=== PATIENT | male | born 1940 | race Caucasian/White ===

== ENCOUNTER → 2022-06-29 08:37 | Outpatient (BNVA) | payer MEDICARE, OTHER, SELFPAY | PROVIDERS: PCP Family Medicine; Referring Provider Family Medicine; Visit Provider Urology | DX: N42.9 Disorder of prostate, unspecified (principal); R97.20 Elevated prostate specific antigen [PSA]; R39.89 Other symptoms and signs involving the genitourinary system | CPT/HCPCS: 99204 ==

== ENCOUNTER → 2022-07-06 13:33 | Outpatient (BNVA) | payer MEDICARE, OTHER, SELFPAY | PROVIDERS: PCP Family Medicine; Referring Provider Family Medicine; Visit Provider Urology | DX: C61 Malignant neoplasm of prostate (principal) | CPT/HCPCS: 55700; 76942; 76872 ==

== ENCOUNTER 2022-07-06 14:23 | Outpatient (REF) | payer MEDICARE, OTHER, SELFPAY ==
--- NOTE | 2022-07-06 14:20 | PROST_PTH ---
PATIENT: Benny Zurita LOC: [facility] U#:[id number] AGE/SX: 82/M ROOM: RE07/06/[address]: Jesus Cuellar MD : 1940 BED: DIS: 07/06/2022 SPEC #: [id number] RECD: 07/06/22 16:20 STATUS: RASHI RE #: [id number] EVONNE: 07/06/22 14:[address]: Jesus Cuellar DEPT: Surgical Specimen RECD BY: Gemma Cunningham ENTERED: 07/06/22 16:22 SP TYPE: PROST OTHR DR: Jez Vance Tissues: 1 - PROSTATE NEEDLE BIOPSY 2 - PROSTATE NEEDLE BIOPSY 3 - PROSTATE NEEDLE BIOPSY 4 - PROSTATE NEEDLE BIOPSY 5 - PROSTATE NEEDLE BIOPSY 6 - PROSTATE NEEDLE BIOPSY 7 - PROSTATE NEEDLE BIOPSY 8 - PROSTATE NEEDLE BIOPSY 9 - PROSTATE NEEDLE BIOPSY 10 - PROSTATE NEEDLE BIOPSY 11 - PROSTATE NEEDLE BIOPSY 12 - PROSTATE NEEDLE BIOPSY Procedures: GROSS AND MICRO LEVEL 4 Comments: [id number]
== END 2022-07-06 14:24 | disposition home or self-care (01) ==
LOC: LBN 14:23
PROVIDERS: PCP Family Medicine; Visit Provider Urology
DX: C61 Malignant neoplasm of prostate (principal)
CPT/HCPCS: 88305

== ENCOUNTER → 2022-07-21 10:48 | Outpatient (BNVA) | payer MEDICARE, OTHER, SELFPAY | PROVIDERS: PCP Family Medicine; Referring Provider Family Medicine; Visit Provider Urology | DX: C61 Malignant neoplasm of prostate (principal) | CPT/HCPCS: 99215 ==

== ENCOUNTER 2022-08-04 01:44 | Outpatient (CLI) | payer MEDICARE, OTHER, SELFPAY ==
--- NOTE | 2022-08-04 08:00 | DI.NM_ITS ---
Exam(s) NM BONE SCAN WHOLE BODY GRP EXAM: NM BONE SCAN WHOLE BODY GRP CLINICAL HISTORY: r/o mets, PROSTATE CA, C61. TECHNIQUE: Injected Dose: 25 mCi Tc-99m MDP Delayed Images: 2-3 hours. COMPARISON: No exams were available for comparison FINDINGS: Symmetric axial uptake. Bilateral renal excretion is identified. There is increased radiotracer uptak e seen in the shoulders, knees and right foot. The appearance is most suggestive of degenerative sheeba nge. There are no x-rays available at this time for comparison. There is increased uptake seen in t he midline above the clavicles on the frontal view. IMPRESSION: 1. Increased radiotracer uptake seen in the midline above the clavicles on the frontal view. This ma y be cervical or upper thoracic in origin. Comparison with x-rays of the cervical and thoracic spine are recommended. 2. Activity seen in the shoulders knees and right foot are likely degenerative in nature. Correlatio n with plain films may be obtained if clinically appropriate.. DATA REPOSITORY:
== END 2022-08-04 02:04 ==
LOC: DI 01:44
PROVIDERS: PCP Family Medicine; Visit Provider Urology
DX: C61 Malignant neoplasm of prostate (principal); M81.0 Age-related osteoporosis without current pathological fracture
CPT/HCPCS: 78306

== ENCOUNTER → 2022-08-07 12:53 | Outpatient (BNVA) | payer MEDICARE, OTHER, SELFPAY | PROVIDERS: PCP Family Medicine; Referring Provider Family Medicine; Visit Provider Urology | DX: C61 Malignant neoplasm of prostate (principal) | CPT/HCPCS: 99442 ==

== ENCOUNTER 2023-12-03 01:01 | Outpatient (RCR) | payer MEDICARE, OTHER, SELFPAY ==
--- OUTSIDE RECORDS SUMMARY | 2023-12-03 01:10 | XMS_ITS | Encounter Summary ---
Author Organization [facility] Address [address] [place] [address] Care Team Providers Care Badger Distiller Operator Name Role Phone Devorah Flowers MD Primary Care Provider [phone] [phone] Encounter Details Date Type Department Care Team (Late st Contact Info) Description 08/14/2009 Results Only [facility] Laboratory Services - [facility] ([facility]) [address] [place] [address] [phone] Jair Thomas MD [address] [place] [address] Social History Tobacco Use Types Packs/Day [...] COLIN, KIA L ? Accession #: ? [id number] ? : ? 1940 (Age: 69) ??M [...] EDT Jair Thomas MD PATHOLOGY ORDERABLES [place] [address] [place] [address] documented in this encounter Visit Diagnoses Not on filedocumented in this encounter Care Teams Badger Distiller Operator Relationship Specialty Start Date End Date Devorah Flowers MD [address] [place] [phone] PCP - General 08/15/09 08/19/14 documented as of this encounter
--- OUTSIDE RECORDS SUMMARY | 2023-12-03 01:10 | XMS_ITS | Encounter Summary ---
Author Organization [facility] Address [address] [place] [address] Care Team Providers Care Encephalographer Name Role Phone Jez Vance MD Primary Care Provider [phone] Encounter Details Date Type Department Care Team (Late st Contact Info) Description 07/06/2022 Lab Requisition [facility] Pathology & Laboratory Medicine - [address] [id number] Jesus Cuellar MD [address] [place] [address] [place] [id number] Encounter for other general examination Social History [...] management options, if applicable. 07/09/2022 13:43 EDT [facility] Final Diagnosis A. PROSTATE, RIGHT BASE LATERAL, BIOPSY (1): - Prostatic adenocarcinoma, acinar type, involving 1 of 1 core; 0.5% involvement. - Core 1 (18.4 mm): [place] patterns 4 and 3, 0.1 mm B. [...] 1 (Leslie score <=6) Grade Group 2 ([place] score 3+4=7) Grade Group 3 (Leslie score 4+3=7) Grade Group 4 (Leslie score 8) Grade Group 5 ([place] scores 9-10) * Taya SARABIA et al: A Contemporary Prostate Cancer Grading System: A Validated Alternative to the Leslie Score. Eur Uro 2015 69(3):428-435 07/09/2022 13:43 [facility] Attestation By the signature below, the attending physician certifies that they have 1) personally conducted a gross and/or microscopic examination of the described specimen(s), and/or personally interpreted the results of laboratory testing of the described specimen(s), and 2) personally rendered or confirmed the above diagnosis. 07/09/2022 13:43 [facility] at 1343 Clinical History Abnormal prostate MRI, elevated PSA 07/09/2022 13:43 [facility] Gross Description A. Received [...] L1. ISMAEL SERRATO(ASCP) 07/07/2022 9:01 07/09/2022 13:43 [facility] Performing Lab [facility] 07/09/2022 13:43 [facility] Scanned Images 07/09/2022 13:43 [facility] Tissue ENTIRE APEX OF [...] EDT Jesus Cuellar MD PATHOLOGY ORDERAB LES [facility] [address] [place] [address] documented in this encounter Visit Diagnoses Diagnosis Encounter for other general examination documented in this encounter Care Teams Encephalographer Relationship Specialty Start Date End Date Jez Vance MD NPI: [id number] [place] [id number] PCP - General 08/20/14 documented as of this encounter
--- OUTSIDE RECORDS SUMMARY | 2023-12-03 01:10 | XMS_ITS | Clinical Summary ---
Author Organization [facility] Address [address] [place] [id number] Care Team Providers Care Entry Level Receptionist Name Role Phone Jez Vance MD Primary Care Provider [phone] Social History Tobacco Use Types Packs/Day Years [...] COVID-19 Vaccine ( season) 2023 Care Teams Entry Level Receptionist Relationship Specialty Start Date End Date Jez Vance MD [address] [place] [id number] PCP - General 08/20/14
--- OUTSIDE RECORDS SUMMARY | 2023-12-03 01:10 | XMS_ITS | Patient Health Record ---
Author Organization [facility] Address [address], [place] [id number] Care Team Providers Care Room Maid Name Role Phone Jez Vance MD Primary Care Provider [phone] Allergies Allergen (clinical drug ingredient) Drug/Non Drug Allergy documented on EMR Reaction Allergy Type Onset Date Status Environmental Unknown Drug Allergy Act heaven Results Component Value Reference Range Notes CMP Reviewed date:11/23/2023 10:09:21 AM Interpretation: Performing Lab:NL1, [facility] [id number] [place], [place] [id number] Jocelyn Muniz M.D. Notes/Report: Received Date: NON-FASTING NON-FASTING NON-FASTING NON-FASTING NON-FASTING GLUCOSE 198 65-99 mg/dL Fasting reference interval For someone without known diabetes, a glucose value >125 mg/dL indicates that they may have diabetes and this should be confirmed with a follow-up test. UREA NITROGEN (BUN) 12 7-25 mg/dL CREATININE 0.58 0.70-1.22 mg/dL EGFR 98 > OR = 60 mL/min/1.73m2 BUN/CREATININE RATIO 21 6-22 (calc) SODIUM 138 135-146 mmol/L POTASSIUM 3.7 3.5-5.3 mmol/L CHLORIDE 104 98-110 mmol/L CARBON DIOXIDE 25 20-32 mmol/L CALCIUM 8.7 8.6-10.3 mg/dL PROTEIN, TOTAL 5.7 6.1-8.1 g/dL ALBUMIN 3.7 3.6-5.1 g/dL GLOBULIN 2.0 1.9-3.7 g/dL (calc) ALBUMIN/GLOBULIN RATIO 1.9 1.0-2.5 (calc) BILIRUBIN, TOTAL 0.9 0.2-1.2 mg/dL ALKALINE PHOSPHATASE 99 35-144 U/L AST 16 10-35 U/L ALT 24 9-46 U/L PSA, POST-PROSTATECTOMY Reviewed date:11/23/2023 10:09:35 AM Interpretation: Performing Lab:[facility] [address] Jocelyn Muniz M.D. Notes/Report: Received Date: NON-FASTING NON-FASTING NON-FASTING NON-FASTING NON-FASTING PSA, POST PROSTATECTOMY <0.02 PSA values obtained with different assay methods or kits cannot be used interchangeably. This test was performed using the [employer] DxI method. PSA, ICMA is not to be used as a diagnostic procedure without confirmation of the diagnosis by another established product or procedure. The lower limit of accurate quantification for this assay is 0.02 ng/mL. PSA values less than 0.02 ng/mL cannot be accurately measured and will be reported as less than 0.02 ng/mL. Specimens with PSA levels below the lower limit of accurate quantification should be considered as negative. In patients with a negative result for post prostatectomy PSA, serial monitoring of PSA levels at regular intervals, along with physical examinations and other tests, may help to detect recurrent prostate cancer. REFERENCE RANGES for PSA: <0.10 ng/mL AFTER RADICAL PROSTATECTOMY. < OR = 4.00 ng/mL IN HEALTHY MALES WITHOUT PROSTATECTOMY. CA 19-9 Reviewed date:11/23/2023 10:09:41 AM Interpretation: Performing Lab:[facility] [address] Jocelyn Muniz M.D. Notes/Report: Received Date: [id number] NON-FASTING NON-FASTING NON-FASTING NON-FASTING NON-FASTING CA 19-9 181 <34 U/mL This test was performed using the Siemens chemiluminescent method. Values obtained from different assay methods cannot be used interchangeably. CA 19-9 levels, regardless of value, should not be interpreted as absolute evidence of the presence or absence of disease. CBC WITH DIFF Reviewed date:11/23/2023 10:09:54 AM Interpretation: Performing Lab:[facility] [address] Jocelyn Muniz M.D. Notes/Report: Received Date: NON-FASTING NON-FASTING NON-FASTING NON-FASTING NON-FASTING WHITE BLOOD CELL COUNT 5.0 3.8-10.8 Thousand/uL RED BLOOD CELL COUNT 3.90 4.20-5.80 Million/uL HEMOGLOBIN 12.9 13.2-17.1 g/dL HEMATOCRIT 39.4 38.5-50.0 % MCV 101.0 80.0-100.0 fL MCH 33.1 27.0-33.0 pg MCHC 32.7 32.0-36.0 g/dL For adults, a slight decrease in the calculated MCHC value (in the range of 30 to 32 g/dL) is most likely not clinically significant; however, it should be interpreted with caution in correlation with other red cell parameters and the patient's clinical condition. RDW 13.2 11.0-15.0 % PLATELET COUNT 197 140-400 Thousand/uL MPV 11.4 7.5-12.5 fL ABSOLUTE NEUTROPHILS 3595 7599-2915 cells/uL ABSOLUTE LYMPHOCYTES 379 242-5816 cells/uL ABSOLUTE MONOCYTES 250 200-950 cells/uL ABSOLUTE EOSINOPHILS 270 15-500 cells/uL ABSOLUTE BASOPHILS 30 0-200 cells/uL NEUTROPHILS 71.9 LYMPHOCYTES 17.1 MONOCYTES 5.0 EOSINOPHILS 5.4 BASOPHILS 0.6 TESTOSTERONE TOTAL SERUM Reviewed date:11/23/2023 10:09:28 AM Interpretation: Performing Lab:NL1, [facility] [address] Jocelyn Muniz M.D. Notes/Report: Received Date: NON-FASTING NON-FASTING NON-FASTING NON-FASTING NON-FASTING TESTOSTERONE, TOTAL, MALES (ADULT), IA <10 250-827 ng/dL In hypogonadal males, Testosterone, Total, LC/MS/MS, is the recommended assay due to the diminished accuracy of immunoassay at levels below 250 ng/dL. This test code (42133) must be collected in a red-top tube with no gel. HGA1C FINGERSTICK Reviewed date:09/17/2023 10:05:13 AM Interpretation:5.4 Performing Lab: Notes/Report: 5.4 HGA1C 5.4 4 - 7 US Abdomen Limited Reviewed date:11/03/2023 01:54:28 AM Interpretation: Performing Lab: Notes/Report: EXAMINATION: US Abdomen Limited CLINICAL HISTORY: Abdominal discomfort TECHNIQUE: Ultrasound of the abdomen was performed. COMPARISON: None FINDINGS: Liver is not enlarged at 15.3 cm craniocaudally and demonstrates diffusely increased echogenicity without mass. Portal vein is patent with hepatopetal [...] is unremarkable without hydronephrosis and measures 12.8cm. IMPRESSION: 1. Liver steatosis. 2. Biliary ductal dilatation [...] who have questions please contact the health pharmacy customer care specialist that requested your imaging first. Electronically signed by: Milton Klein MD, [facility] ([phone]), at 10/21/2023 11:12 AM US Abdomen Limited EXAMINATION: US Abdo men Limited US Abdomen Limited CLINICAL HISTORY: Abdominal discomfort US Abdomen Limited TECHNIQUE: Ultrasoun d of the abdomen was performed. US Abdomen Limited COMPARISON: None US Abdomen Limited FINDINGS: Liver is n ot enlarged at 15.3 cm craniocaudally and demonstrates US Abdomen Limited diffusely increased echogenicity without mass. Portal vein is patent with US Abdomen Limited hepatopetal flow. Gallbladder is diffusely dilated, measures 5.3 cm in diameter US Abdomen Limited and 11 cm in length. No pericholecystic fluid, gallbladder wall thickening or US Abdomen Limited stones. sonographic Kim's sign. Common bile duct measures 13mm, tapers down US Abdomen Limited to 8 mm at the level of the pancreatic head. An oblong hypoechoic focus projects US Abdomen Limited in the head of the pancreas, measures approximately 2 cm in greatest dimension US Abdomen Limited Pancreatic tail is obscured by overlying bowel gas. The right kidney is US Abdomen Limited unremarkable without hydronephrosis and measures 12.8cm. US Abdomen Limited IMPRESSION: US Abdomen Limited 1. Liver steatosis. US Abdomen Limited 2. Biliary ductal dilatation and a hydropic gallbladder. Please correlate with US Abdomen Limited LFTs. US Abdomen Limited 3. An oblong hypoech oic focus within the head of the pancreas, concerning for a US Abdomen Limited mass lesion. US Abdomen Limited 4. Recommend further characterization of the above described abnormalities with US Abdomen Limited MRI of the abdomen w ith and without contrast according to the pancreatic mass US Abdomen Limited protocol, and an MRCP. US Abdomen Limited Thank you for lettemy oneil participate in the care of this patient. If you are a US Abdomen Limited health care provider and have any questions regarding this report, please US Abdomen Limited contact the number below. For patients who have questions please contact the US Abdomen Limited health pharmacy customer care specialist that requested your imaging first. US Abdomen Limited Electronically paul d by: Milton Klein MD, [facility] ([phone]), at 10/21/2023 11:12 AM Amylase Reviewed date:11/03/2023 01:54:28 AM Interpretation: Performing Lab: Notes/Report: [id number] [address] [address] [place], [place] [id number] [facility] [id number] SELF Amylase Level 45 28-100 unit/L Bili Dir Reviewed date:11/03/2023 01:54:28 AM Interpretation: Performing Lab: Notes/Report: Order placed by GL_COTT_RFLX_BILI rule [id number] [address] [address] [place], [place] [id number] [facility] [id number] SELF Bilirubin Direct 5.0 0.0-0.3 mg/dL Lipase Reviewed date:11/03/2023 01:54:28 AM Interpretation: Performing Lab: Notes/Report: [id number] [address] [address] [place] [id number] [facility] [id number] SELF Lipase Level 75 13-60 unit/L Auto Diff Reviewed date:11/03/2023 01:54:28 AM Interpretation: Performing Lab: Notes/Report: [id number] [facility] [address] [place] [id number] [facility] [id number] SELF Neutro Auto 66.1 40.0-74.0 /100(WBCs) Lymph Auto 19.8 19.0-48.0 /100(WBCs) Coamo Auto 10.5 3.0-10.0 /100(WBCs) Eos, Auto 3.2 1.0-7.0 /100(WBCs) Basophil Auto 0.20 0.00-2.00 /100(WBCs) Neutro Absolute 3.13 1.20-6.70 x10 Lymph Absolute 0.94 1.20-3.40 x10 Coamo Absolute 0.50 0.11-0.70 x10 Eos Absolute 0.15 0.00-0.70 x10 Baso Absolute 0.01 0.00-0.20 x10 Breakpoint Imm Gran Auto 0.2 Imm Gran Absolute 0.01 0.00-0.04 x10 CBC w/ Diff Reviewed date:11/03/2023 01:54:28 AM Interpretation: Performing Lab: Notes/Report: [id number] [facility] [address] [place] [id number] [id number] [facility] [id number] SELF Instr WBC 4.74 WBC 4.74 4.80-10.80 x10 RBC 4.21 4.20-5.90 x10 Hgb 13.7 13.5-17.5 g/dL Hct 38.8 40.0-50.0 % MCH 32.5 27.5-32.1 pg MCHC 35.3 33.0-36.0 g/dL MPV 10.6 6.0-10.0 fL MCV 92.2 80.0-97.0 fL Platelets 223 150-400 x10 Breakpoint RDW-CV 12.8 11.6-14.8 % CMP Reviewed date:11/03/2023 01:54:28 AM Interpretation: Performing Lab: Notes/Report: [id number] [address] [address] [place] [id number] [id number] [facility] [place] [phone] SELF Sodium Level 134 136-145 mmol/L Potassium Level 2.9 3.5-5.0 mmol/L Critical v alue verified and results called to Maritza Mora and read back at 1646_ by tech: gar_ Chloride Level 94 98-107 mmol/L CO2 28 22-29 mmol/L Alk Phos 364 40-129 unit/L AST 276 10-50 unit/L ALT 670 5-55 unit/L BUN 18.7 8.0-23.0 mg/dL Glucose Level 223 70-100 mg/dL Creatinine Level 0.89 0.70-1.20 mg/dL Specimen icteric; result may be invalid. Interpret with caution. Calcium Level 9.6 8.8-10.2 mg/dL Protein Total 6.5 6.1-8.0 g/dL Albumin Level 4.2 3.5-5.2 g/dL Bilirubin Total 6.07 <=1.20 mg/dL Anion Gap 15 5-15 mmol/L Breakpoint eGFR AA 100 >=60 mL/min/1.73 m2 eGFR Non-AA 82 >=60 mL/min/1.73 m2 BUN/Creat Ratio 21 A/G Ratio 1.8 CMP Reviewed date:11/03/2023 01:54:29 AM Interpretation: Performing Lab:NL1, [facility] [address] Jocelyn Muniz M.D. Notes/Report: Received Date: NON-FASTING NON-FASTING GLUCOSE 177 65-99 mg/dL Fasting reference interval For someone without known diabetes, a glucose value >125 mg/dL indicates that they may have diabetes and this should be confirmed with a follow-up test. UREA NITROGEN (BUN) 22 7-25 mg/dL CREATININE 0.85 0.70-1.22 mg/dL EGFR 87 > OR = 60 mL/min/1.73m2 BUN/CREATININE RATIO SEE NOTE: 6-22 (calc) Not Reported: BUN and Creatinine are within reference range. SODIUM 135 135-146 mmol/L POTASSIUM 3.3 3.5-5.3 mmol/L CHLORIDE 94 98-110 mmol/L CARBON DIOXIDE 30 20-32 mmol/L CALCIUM 9.9 8.6-10.3 mg/dL PROTEIN, TOTAL 6.6 6.1-8.1 g/dL ALBUMIN 4.0 3.6-5.1 g/dL GLOBULIN 2.6 1.9-3.7 g/dL (calc) ALBUMIN/GLOBULIN RATIO 1.5 1.0-2.5 (calc) BILIRUBIN, TOTAL 3.4 0.2-1.2 mg/dL ALKALINE PHOSPHATASE 301 35-144 U/L AST 270 10-35 U/L ALT 585 9-46 U/L Verified by rep eat analysis. CBC WITH DIFF Reviewed date:11/03/2023 01:54:29 AM Interpretation: Performing Lab:NL1, [facility] [id number] [place], [place] [id number] Jocelyn Muniz M.D. Notes/Report: Received Date: [id number] NON-FASTING NON-FASTING WHITE BLOOD CELL COUNT 4.7 3.8-10.8 Thousand/uL RED BLOOD CELL COUNT 4.18 4.20-5.80 Million/uL HEMOGLOBIN 13.7 13.2-17.1 g/dL HEMATOCRIT 42.2 38.5-50.0 % MCV 101.0 80.0-100.0 fL MCH 32.8 27.0-33.0 pg MCHC 32.5 32.0-36.0 g/dL RDW 12.3 11.0-15.0 % PLATELET COUNT 263 140-400 Thousand/uL MPV 11.3 7.5-12.5 fL ABSOLUTE NEUTROPHILS 3149 0353-7884 cells/uL ABSOLUTE LYMPHOCYTES 066 757-2722 cells/uL ABSOLUTE MONOCYTES 437 200-950 cells/uL ABSOLUTE EOSINOPHILS 179 15-500 cells/uL ABSOLUTE BASOPHILS 28 0-200 cells/uL NEUTROPHILS 67 LYMPHOCYTES 19.3 MONOCYTES 9.3 EOSINOPHILS 3.8 BASOPHILS 0.6 ELECTROCARDIOGRAM EKG Reviewed date:10/20/2023 02:20:52 PM Interpretation: Performing Lab: Notes/Report: Ultrasound Abdominal Limited Reviewed date:10/20/2023 02:22:04 PM Interpretation: Performing Lab: Notes/Report: CA 19-9 [facility] Reviewed date:11/03/2023 01:54:28 AM Interpretation: Performing Lab: Notes/Report: [id number] [address] [address] [place], [place] [id number] [facility] [place] [id number] SELF CA 19-9 [facility] 79.0 <=35.0 This result was generated using a Doreen Danis immunoassay. Results obtained from other methods or manufacturers cannot be used interchangeably with this method. Test performed at: [place] [address] LIPID PANEL Reviewed date:09/15/2023 02:03:07 PM Interpretation: Performing Lab:NL1, [facility] [place], [place] [phone] Jocelyn Muniz M.D. Notes/Report: Received Date: [id number] NON-FASTING NON-FASTING NON-FASTING CHOLESTEROL, TOTAL 140 <200 mg/dL HDL CHOLESTEROL 44 > OR = 40 mg/dL TRIGLYCERIDES 109 <150 mg/dL LDL-CHOLESTEROL 77 Reference range: <100 Desirable range <100 mg/dL for primary prevention; <70 mg/dL for patients with CHD or diabetic patients with > or = 2 CHD risk factors. LDL-C is now calculated using the Anthony-Shyanne calculation, which is a validated novel method providing better accuracy than the Friedewald equation in the estimation of LDL-C. Anthony WATSON et al. ADONAY. 2013;310(19): 6702-1943 (http://education.Root Metrics.com/faq/F AQ164) CHOL/HDLC RATIO 3.2 <5.0 (calc) NON HDL CHOLESTEROL 96 <130 mg/dL (calc) For patients with diabetes plus 1 major ASCVD risk factor, treating to a non-HDL-C goal of <100 mg/dL (LDL-C of <70 mg/dL) is considered a therapeutic option. PSA TOTAL Reviewed date:09/15/2023 02:02:54 PM Interpretation: Performing Lab:NL1, [facility] [address] Jocelyn Muniz M.D. Notes/Report: Received Date: [id number] NON-FASTING NON-FASTING NON-FASTING PSA, TOTAL <0.04 < OR = 4.00 ng/mL The total PSA value from this assay system is standardized against the WHO standard. The test result will be approximately 20% lower when compared to the equimolar-standardized total PSA (Stefania Conroe). Comparison of serial PSA results should be interpreted with this fact in mind. This test was performed using the Siemens chemiluminescent method. Values obtained from different assay methods cannot be used interchangeably. PSA levels, regardless of value, should not be interpreted as absolute evidence of the presence or absence of disease. BMP Reviewed date:09/15/2023 02:03:21 PM Interpretation: Performing Lab:NL1, [facility] [id number] [place], [place] [id number] Jocelyn Muniz M.D. Notes/Report: Received Date: NON-FASTING NON-FASTING NON-FASTING GLUCOSE 124 65-99 mg/dL Fasting reference interval For someone without known diabetes, a glucose value between 100 and 125 mg/dL is consistent with prediabetes and should be confirmed with a follow-up test. UREA NITROGEN (BUN) 15 7-25 mg/dL CREATININE 0.81 0.70-1.22 mg/dL EGFR 89 > OR = 60 mL/min/1.73m2 BUN/CREATININE RATIO SEE NOTE: 6-22 (calc) Not Reported: BUN and Creatinine are within reference range. SODIUM 133 135-146 mmol/L POTASSIUM 3.6 3.5-5.3 mmol/L CHLORIDE 97 98-110 mmol/L CARBON DIOXIDE 28 20-32 mmol/L CALCIUM 9.1 8.6-10.3 mg/dL Reason For Referral Reason Pt seen 10/21/23, no sukumar scanned to chart for provider review 11/08/23 LR -- APPT 10/21/23 LR -- FAXED TO 10/20/23 LR -- [facility] - NEEDS SURGICAL CONSULT RE GB OBSTRUCTION - LABS AND FORMAL SONO PENDING Please contact our office within 7 days to notify LR of scheduled appointment Diagnosis 1 SOB (shortness of br eath) on exertion (R06.02) Referral Organization [facility] Yoel Bailon Referring Provider First Name Jez Referring Provider Last Name Rajiv Gates Referring Provider Speciality Family Med icine Referred Provider [facility], [facility] Surgery Referred Provider Specialty General Surg matt General Notes Pallavi Campos 05/2023 04:55:13 PM >FAXED TO GEN SURG, Pallavi Campos 10/21/2023 03:42:14 PM >Per arabella Carrion had appt 10/21/23 at 2:00pm, notes pending completion and signature., Pallavi Campos 11/08/2023 10:23:44 AM >Pt seen 10/21/23, notes scanned to chart for provider review. Referral Priority Routine Referral Appointment Date 10/21/2023 Medications Medication SIG (Take, Route, Frequency, Duration) Notes Start Date End Date Status Lupron Depot (6-Month) 45 MG as directed Intramuscular every 6 months 11/27/2022 Active Ibuprofen 400 MG 1-2 tablets with alejandrina d or milk as needed Orally Once a day at bedtime 11/27/2022 Active Losartan Potassium 50 MG 1 tablet Orally Twice a day for 90 days If BP>140/90 Active Singulair 10 MG 1 tablet in the even ing Orally Once a day for 90 days Active Simvastatin 20 MG 1 tablet in the even ing Orally Once a day for 30 days Active Senna-Docusate Sodium 8.6-50 MG 2 tablets Orally Twice a day 10/27/2023 Active MiraLax 17 GM 1 packet mixed with 8 ounces of fluid Orally Once a day 10/27/2023 Active Tamsulosin HCl 0.4 MG 1 capsule Orally O nce a day at bedtime for 90 days 10/27/2023 Active Immunizations Vaccine Route Administration Date Status Comme nts TDaP Adult [facility] [id number] Unknown 09/07/2007 Administered TD 7 and Up [facility] [id number] IM Intramuscular 11/19/2017 Administered SHINGRIX [facility] [id number] Unknown 09/18/2018 Administered SHINGRIX [facility] 07859 IM Intramuscular 09/19/2018 Administered Prevnar PCV 13 Adult 65+ Purchased [id number] Unknown 10/24/2017 Administered Lot# [id number] Exp 05/2019 [facility]man Pneumovax 23 Adult 65+ Purchased [id number] Unknown 09/03/2020 Administered Influenza Adult FluBlok high dose PURCHASED IM Intramuscular 10/15/2017 Administered Influenza Adult FluBlok high dose PURCHASED IM Intramuscular 11/15/2019 Administered Influenza Adult FluBlok high dose PURCHASED IM Intramuscular 11/11/2021 Administered Influenza 3 Yrs and up [facility] 28931 Unknown 11/17/2010 Administered INFLUENZA 18 YRS TO 64 YRS [employer]LD-STATE SUPPLIED IM Intramuscular 11/19/2011 Administered INFLUENZA 18 YRS TO 64 YRS OLD-STATE SUPPLIED IM Intramuscular 11/02/2012 Administered INFLUENZA 18 YRS TO 64 YRS OLD-STATE SUPPLIED IM Intramuscular 11/22/2013 Administered INFLUENZA 18 YRS TO 64 YRS OLD-STATE SUPPLIED IM Intramuscular 11/14/2014 Administered INFLUENZA 18 YRS TO 64 YRS OLD-STATE SUPPLIED IM Intramuscular 10/30/2015 Administered INFLUENZA 18 YRS TO 64 YRS OLD-STATE SUPPLIED IM Intramuscular 11/16/2016 Administered Social History Tobacco Use: Social History Observation Description Date Details (start date - stop date) Never Smoker NA - NA Sex Assigned At : Social History Observation Description Sex Assigned At Male PRAPARE Question Answer Notes Date Completed/Updated: 09/17/2023 What is your current housing situation? I have h ousing Are you worried about losing your housing? No What is the highest level of school that you have finished? More than high school What is your current work situation? Oth erwise unemployed but not seeking work (ex. 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 Check all that apply I do not have problems meeting my needs Has lack of transportation k ept you from medical appointments, meetings, work or from getting things needed for daily living? No How often do you see or talk to people that you care about and feel close to? (For example: talking to friends on the phone, visiting friends or family, going to restoration or club meetings) More than 5 times a week How stressed are you? Stress is when someone feels tense, nervous, anxious, or can't sleep at night because their mind is troubled Quite a bit In the past year have you sp ent more than 2 nights in a row in a intermediate, shelter, [place] health [place] center, or juvenile correctional facility? No Are you a refugee? No What country are you from? [place] Do you feel physically and e motionally safe where you currently live? Yes In the past year, have you b een afraid of your partner or ex-partner? No PRAPARE Score: 3 Tobacco Control (Standard) Question Answer Notes Tobacco use: Nonsmoker Problems Problem Type SNOMED Code ICD Code Onset Dates Problem Status W/U Status Risk Notes Problem 232198367 Mixed hyperlipidemia (E78.2) Active confirmed Problem 80401823 Other chronic pa in (G89.29) Active confirmed Problem 075811330 Annual physical exam (Z00.00) Active confirmed Problem Elevated fasting lipid profile (793242366120) Elevated lipids (E78.5) Active confirmed Problem 55070251 Essential hypertension (I10) Active confirmed Problem 046725762 Prostate CA (C61) Active confirmed Problem 330742713 Gastroesophageal reflux disease without esophagitis (K21.9) Active confirmed Problem 04628206 Angelica onychomycosis (B37.2) Active confirmed Problem 4527950 Urinary hesitanc y (R39.11) Active confirmed Problem Skin sensation disturbance (16482751) Numbness and tingling of foot (R20.2) Active confirmed Problem 647705425 Benign prostatic hyperplasia with lower urinary tract symptoms (N40.1) Active confirmed Vital Signs Heart Rate 46 BPM 10/20/2023 BIGEMINY WITH R ATE ~50 Temperature 97.6 degrees Fahrenheit 10/20/2023 BIGE ANUSHKA WITH RATE ~50 Respiratory Rate 18 /min 09/17/2023 Oximetry 97 % 10/20/2023 BIGEMINY WITH R ATE ~50 Blood pressure diastolic 66 mmHg 10/20/2023 BIG EMINY WITH RATE ~50 Height 69.5 in 10/20/2023 BIGEMINY WITH R ATE ~50 Blood pressure systolic 122 mmHg 10/20/2023 BIGE ANUSHKA WITH RATE ~50 Weight 187 lbs 10/20/2023 BIGEMINY WITH R ATE ~50 BMI 27.22 kg/m2 10/20/2023 BIGEMINY WITH R ATE ~50 Encounters Encounter Location Date Provider Diagnosis [address] [address] 07/01/2023 Jez Vance MD [address] [address] 09/14/2023 Jez Vance MD Essential hypertension I10 ; Mixed hyperlipidemia E78.2 and Benign prostatic hyperplasia with lower urinary tract symptoms N40.[address] [address] 09/17/2023 Jez Vance MD Encounter for annual wellness visit (AWV) in Medicare patient Z00.00 ; Essential hypertension I10 ; Prostate CA C61 and Numbness and tingling of foot R20.[address] [address] 10/20/2023 Jez Vance MD SOB (shortness of breath) on exertion R06.02 ; Dilated gallbladder K82.8 and Abdominal discomfort R10.[address] [address] 11/16/2023 Jez Vance MD Bigeminy I49.[address] [address] 11/17/2023 Jez Vance MD Prostate CA 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 affecting estrogen receptors and estrogen levels Z79.[address] [address] 07/13/2023 Jez Vance MD Annual physical exam Z00.[address] [address] 09/13/2023 Jez Vance MD Essential hypertension I10 ; Mixed hyperlipidemia E78.2 and Benign prostatic hyperplasia with lower urinary tract symptoms N40.[address] [address] 09/17/2023 Jez Vance MD PRAPARE POSITIVE PRAP [address] [address] 10/19/2023 Jez Vance MD [address] [address] 10/21/2023 Jez Vance MD [address] [address] 10/28/2023 Jez Vance MD [address] [address] 10/28/2023 Jez Vance MD [facility] [address] [address] 11/03/2023 Jez Vance MD [address] [address] 11/12/2023 Jez Vance MD [address] [address] 11/22/2023 Jez Vance MD Assessments Encounter Date Diagnosis (ICD Code) Assessment Notes Treat ment Notes Treatment Clinical Notes 10/28/2023 Hospital Admit (ICD9-CM - HOSP) 09/13/2023 Mixed hyperlipidemia (ICD-10 - E78.2) 09/13/2023 Essential hypertension (ICD-10 - I10) 07/13/2023 Annual physical exam (ICD-10 - Z00.00) 09/14/2023 Essential hypertension (ICD-10 - I10) Left ac venipuncture done with 23 g needle. Successful first attempt. Pt tolerated it well. Lab sent to [facility] 09/17/2023 Essential hypertension (ICD-10 - I10) 09/17/2023 Encounter for annual wellness visit (AWV) in Medicare patient (ICD-10 - Z00.00) 09/17/2023 PRAPARE POSITIVE (ICD9-CM - PRAP) 11/16/2023 Bigeminy (ICD-10 - I49.8) 11/17/2023 Prostate CA (ICD-10 - C61) 10/20/2023 Dilated gallbladder (ICD-10 - K82.8) 10/20/2023 SOB (shortness of breath) on exertion (ICD-10 - R06.02) 10/20/2023 Abdominal discomfort (ICD-10 - R10.9) Venipuncture right AC with 23G butterfly needle. Pt tolerated well. Millie Duong MA 11/17/2023 intermediate (current) use of other agents affecting estrogen receptors and estrogen levels (ICD-10 - Z79.818) 09/17/2023 Prostate CA (ICD-10 - C61) 09/14/2023 Mixed hyperlipidemia (ICD-10 - E78.2) 09/13/2023 Benign prostatic hyperplasia with lower urinary tract symptoms (ICD-10 - N40.1) 09/17/2023 Numbness and tinglin g of foot (ICD-10 - R20.2) 09/14/2023 Benign prostatic hyperplasia with lower urinary tract symptoms (ICD-10 - N40.1) 09/17/[address] Jez Vance by Kenny Sy, virtual biomedical electronics technician, on 09/17/2023. I, Dr. Jez Vance, have personally reviewed and agreed with the information entered by the scribe. 11/16/[address] Jez Vance by Kenny Sy, virtual biomedical electronics technician, on 11/16/2023. I, Dr. Jez Vance, have personally reviewed and agreed with the information entered by the scribe. 11/17/2023 Other Left ac venipuncture done with 23 g needle. Successful first attempt. Pt tolerated it well. Bandaid applied Lab sent to [facility]. CARISSA Fitzpatrick Plan Of Treatment Pending Test Test Name Order Date Echocardiogram 11/16/2023 ZIO PATCH 11/16/2023 Insurance Providers Payer Name Payer Address Payer Phone Subscriber Number Group Number Insured Name Patient Relationship to Insured Coverage Start Date Coverage End Date MEDICARE FQHC [address] [place] [address] [id number] Kia Shaw Self - patient is the insured [facility] [address] [place] [address] [id number] Kia Shaw Self - patient is the insured Medical (General) History Medical History History ICD Code Hypertension - GOOD CONTROL ON MEDS Elevated lipids - EXCELLENT LDL < 100 ON STATIN R 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
--- OUTSIDE RECORDS SUMMARY | 2023-12-03 01:10 | XMS_ITS ---
Author Organization [facility] Address [address] [place] [id number] Care Team Providers Care Apprentice Name Role Phone Rajiv MERCEDES, Jez Primary Care Provider [phone] Results Component Value Reference Range Notes CMP Reviewed date:11/23/2023 10:09:21 AM Interpretation: Performing Lab:[facility], [facility] [id number] [place], [place] [id number] Jocelyn Muniz M.D. Notes/Report: Received Date: NON-FASTING [...] POST-PROSTATECTOMY Reviewed date:11/23/2023 10:09:35 AM Interpretation: Performing Lab:[facility] [address] Jocelyn Muniz M.D. Notes/Report: Received Date: NON-FASTING NON-FASTING NON-FASTING NON-FASTING NON-FASTING PSA, POST PROSTATECTOMY <0.02 PSA values obtained with different assay methods or kits cannot be used interchangeably. This test was performed using the Symphony Concierge DxI method. PSA, ICMA is not to [...] 19-9 Reviewed date:11/23/2023 10:09:41 AM Interpretation: Performing Lab:[facility] [address] Jocelyn Muniz M.D. Notes/Report: Received Date: [id number] NON-FASTING NON-FASTING NON-FASTING NON-FASTING NON-FASTING CA 19-9 181 <34 U/mL This test was performed using the Siemens chemiluminescent method. Values obtained from different assay methods cannot be used interchangeably. CA 19-9 levels, regardless of value, should not be interpreted as absolute evidence of the presence or absence of disease. CBC WITH DIFF Reviewed date:11/23/2023 10:09:54 AM Interpretation: Performing Lab:[facility] [address] Jocelyn Muniz M.D. Notes/Report: Received Date: NON-FASTING NON-FASTING NON-FASTING NON-FASTING NON-FASTING WHITE BLOOD CELL COUNT 5.0 3.8-10.8 Thousand/ uL RED BLOOD CELL COUNT 3.90 4.20-5.80 Million/uL [...] MPV 11.4 7.5-12.5 fL ABSOLUTE NEUTROPHILS 3595 1800-4743 cells/uL ABSOLUTE LYMPHOCYTES 701 463-2424 cells/uL ABSOLUTE MONOCYTES 250 200-950 cells/uL ABSOLUTE EOSINOPHILS 270 15-500 cells/uL ABSOLUTE BASOPHILS 30 0-200 cells/uL NEUTROPHILS 71.9 LYMPHOCYTES 17.1 MONOCYTES 5.0 EOSINOPHILS 5.4 BASOPHILS 0.6 TESTOSTERONE TOTAL SERUM Reviewed date:11/23/2023 10:09:28 AM Interpretation: Performing Lab:[facility], [facility] [address] Jocelyn Muniz M.D. Notes/Report: Received Date: NON-FASTING NON-FASTING NON-FASTING NON-FASTING NON-FASTING TESTOSTERONE, TOTAL, MALES (ADULT), IA <10 250-827 ng/dL In hypogonadal males, Testosterone, Total, LC/MS/MS, is the recommended assay due to the diminished accuracy of immunoassay at levels below 250 ng/dL. This test code (93230) must be collected in a red-top tube with no gel. REASON FOR VISIT Labs for Oncology- CBC, CMP, Total Testosterone, PSA Ultra Sensitive, CA 19 Social History Sex Assigned At : Social History Observation Description Sex Assigned At Male Encounters Encounter Location Date Provider Diagnosis [address] [phone] 11/17/2023 Jez Vance MD Prostate CA C61 and prison (current) use of other agents affecting estrogen receptors and estrogen levels Z79.818 Assessments Encounter Date Diagnosis (ICD Code) Assessment Notes Treatment Notes Treatment Clinical Notes 11/17/2023 Prostate CA (ICD-10 - C61) 11/17/2023 prison (current) use of other agents affecting estrogen receptors and estrogen levels (ICD-10 - Z79.818) 11/17/2023 Other Left ac venipun cture done with 23 g needle. Successful first attempt. Pt tolerated it well. Bandaid applied Lab sent to [facility]. CARISSA Fitzpatrick Plan Of Treatment Treatment Notes Assessment Notes Other Left ac venipuncture done with 23 g needle. Successful first attempt. Pt tolerated it well. Bandaid applied Lab sent to [facility]. CARISSA Fitzpatrick Progress Notes * [place] SHAWOB:1940 (83 yo M)Acc No.[id number]:11/17/2023 Progress Note Patient:?Benny SHAW Provider:?Jez Vance M.D. :1940???Age:83 Y???Sex:Male Omari e:11/17/2023 Address:[address], [id number] Subjective: * Chief Complaints: * ???1. Labs for Oncology- CBC , CMP, Total Testosterone, PSA Ultra Sensitive, CA 19. * Medical History:? Objective: * Vitals:? Assessment: * Assessment: 1.?Prostate CA - C61 (Primar y)???2.?prison (current) use of other agents affecting estrogen receptors and estrogen levels - Z79.818??? 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 Notes: Left ac venipuncture done with 23 g needle. Successful first attempt. Pt tolerated it well. Bandaid applied Lab sent to [facility]. CARISSA Fitzpatrick?? * * Sign off status: Completed true * Provider:?Jez Vance M.D. Omari e:?11/17/2023 Generated for Jovanna dejesus/Allyson/Rosioitting on:?12/03/2023 01:10 AM EDT
--- OUTSIDE RECORDS SUMMARY | 2023-12-03 01:10 | XMS_ITS | Encounter Summary ---
Author Organization [facility] Address [address] [place] [address] Care Team Providers Care Child Welfare Counselor Name Role Phone Devorah Flowers MD Primary Care Provider [phone] Encounter Details Date Type Department Care Team (Late st Contact Info) Description 08/15/2014 Results Only [facility] [phone] Jair Thomas MD [address] [place] [address] Social History Tobacco Use Types Packs/Day [...] ? KIA SHAW ? Accession #: ? [id number] ? : ? 1940 (Age: 74) ??M [...] Guillen 08/16/2014 10:38 AM End of Report [facility] 08/15/2014 9:09 EDT 08/16/2014 9:09 EDT Jair Thomas MD PATHOLOGY ORDERABLES [facility] [address] [place] [address] documented in this encounter Visit Diagnoses Not on filedocumented in this encounter Care Teams Child Welfare Counselor Relationship Specialty Start Date End Date Devorah Flowers MD [address] [place] [phone] PCP - General 08/15/09 08/19/14 documented as of this encounter
--- OUTSIDE RECORDS SUMMARY | 2023-12-03 01:10 | XMS_ITS | Referral Summary ---
Author Organization [facility] Address [address] [place] [address] Care Team Providers Care Vehicle Check In Clerk Name Role Phone Jez Vance MD Primary Care Provider [phone] Social History Tobacco Use Types Packs/Day Years Used Date Smoking Tobacco: Never Assessed Sex and Gender Information Value Date Recorded Sex Assigned at Not on file Gender Identity Not on file Sexual Orientation Not on file Plan of Treatment Not on file Care Teams Vehicle Check In Clerk Relationship Specialty Start Date End Date Jez Vance MD [address] [place] [address] PCP - General 08/20/14
--- OUTSIDE RECORDS SUMMARY | 2023-12-03 01:10 | XMS_ITS ---
Author Organization [facility] Address [address] [place], [place] [id number] Care Team Providers Care Terminal Make Up Operator Name Role Phone Rajiv MERCEDES, Jez Primary Care Provider REASON FOR VISIT F/U appt Medications Medication [...] Male Encounters Encounter Location Date Provider Diagnosis [address] [address] 11/16/2023 Jez Anderson I49.8 Assessments Encounter Date Diagnosis (ICD Code) Assessment Notes Treatment Notes Treatment Clinical Notes 11/16/2023 Justin (ICD-10 - I49.8) 11/16/[address] Jez Vance by Kenny Sy, [employer] medical secretary, on 11/16/2023. I, Dr. Jez Vance, have personally reviewed and agreed with the information entered by the scribe. Plan Of Treatment Treatment Notes Assessment Notes Other Scribed for Dr. Seth Vance by Kenny Sy, [employer] scribe, on 11/16/2023. I, Dr. Jez Vance, have personally reviewed and agreed with the information entered by the scribe. Pending Test Test Name Order Date Echocardiogram 11/16/2023 ZIO PATCH 11/16/2023 Next Appt Details Follow Up: prn, Reason: Progress Notes * Brooklyn SHAWOB:1940 (83 yo M)Acc No.[id number]:11/16/2023 Progress Note Patient:?Benny SHAW Provider:?Jez Vance M.D. :1940???Age:83 Y???Sex:Male Omari e:11/16/2023 Address:[address] [place] [address] , [id number] Subjective: * Chief Complaints: * ???1. F/U appt. * HPI: ???INTERIM HISTORY::? PATIENT IS A 83-YEAR-OLD MALE PRESENTING TODAY WITH , JEFFREYFOR A FOLLOW-UP. HE IS SCHEDULED FOR A WHIPPLE SURGERY IN FOUR MONTHS. DURING RECENT PROCEDURE AT [facility] WAS NOTED TO HAVE HEART RATE IN [...] for Dr. Jez Vance by Kenny Sy, [employer] medical secretary, on 11/16/2023. I, Dr. Jez Vance, have personally reviewed and agreed with the information entered by the scribe.?? * Procedure Codes:?G0467 [facility] VISIT ESTABLISHED PATIENT * Follow Up:?prn * * Sign off status: Completed true * Provider:?Jez Vance M.D. Omari e:?11/16/2023 Generated for Jovanna dejesus/Allyson/Nhung on:?12/03/2023 01:10 AM EDT History and Physical Notes * Examination Category Sub-Category Detail Notes General Examination GENERAL APPEARANCE: BRIGHT, ALERT AND COMFORTABLE
--- OUTSIDE RECORDS SUMMARY | 2023-12-03 01:10 | XMS_ITS | Encounter Summary ---
Author Organization [facility] Address [address] [place] [address] Care Team Providers Care Assistant Shift Supervisor Name Role Phone Devorah Flowers MD Primary Care Provider [phone] Encounter Details Date Type Department Care Team (Latest Contact Info) Description 08/15/2014 15:18 EDT - 08/15/2014 23:59 EDT Hospital Encounter [address] [address] Unknown, Provider, Discharge Disposition: Home or Self Care Social History Tobacco Use Types Packs/Day Years Used Date Smoking Tobacco: Never Assessed Sex and Gender Information Value Date Recorded Sex Assigned at Not on file Gender Identity Not on file Sexual Orientation Not on file documented as of this encounter Discharge Disposition Disposition Code Departure Means Destination Home or Self Prison documented in this encounter Plan of Treatment Not on file documented as of this encounter Visit Diagnoses Not on filedocumented in this encounter Care Teams Assistant Shift Supervisor Relationship Specialty Start Date End Date Devorah Flowers MD [address] [place] [phone] PCP - General 08/15/09 08/19/14 documented as of this encounter
--- OUTSIDE RECORDS SUMMARY | 2023-12-03 01:10 | XMS_ITS ---
Author Organization [facility] Address [address] [place], [place] [id number] Care Team Providers Care Geodesy Teacher Name Role Phone Rajiv MERCEDES, Jez Primary Care Provider [phone] REASON FOR VISIT heart monitor Social History Sex Assigned At : Social History Observation Description Sex Assigned At Male Encounters Encounter Location Date Provider Diagnosis [address] [address] 11/22/2023 Jez Vance MD Plan Of Treatment No Information Progress Notes * Brooklyn SHAWOB:1940 (83 yo M)Acc No.[id number]:11/22/2023 Patient:?Benny SHAW :1940???Age:83 Y???Sex:Male Address:[address] [place] [address] * true * Date:? Generated for Kizzyi anjelica/Allyson/eTransmitting on:?12/03/2023 01:09 AM EDT
--- OUTSIDE RECORDS SUMMARY | 2023-12-03 01:11 | XMS_ITS | Encounter Summary ---
Author Organization [facility] Address [facility] [place] [address] Care Team Providers Care Paint Stock Clerk Name Role Phone Jez Vance MD Primary Care Provider [phone] Encounter Details Date Type Department Care Team (Late st Contact Info) Description 11/29/2023 Telephone Radiation Oncology at [address] [phone] Sapna Cxo Social History Tobacco Use Types Packs/Day Years [...] from your doctor or pharmacy? Never 11/04/2023 [facility] Utilities Answer Date Recorded In the past 12 months has [employer], gas, oil, or water [employer] threatened to shut off services in your [...] any time in the past 12 m [facility], were you homeless or living in a detention (including now)? No 11/04/2023 [facility] IPV Inpatient [...] encounter Miscellaneous Notes * Telephone Encounter - Sapna Cox - 11/29/2023 2:06 PM EDT Benny called and needed to change the time of his appt on 11/29 as his also has an appt at that time. The appt was changed to 11/29@2:30pm he is aware of the new time documented in this encounter Plan of Treatment Upcoming Encounters Date Type Department Care Team (Late st Contact Info) Description 12/03/2023 8:00 AM EDT Office Visit Hematology/Oncology at [address] [phone] Antonio Brownlee MD [facility] [place] [address] [address] HEMATOLOGY AND ONCOLOGY [place], [place] [phone] 12/03/2023 8:30 AM EDT Infusion Hematology Oncology at [address] [phone] 12/03/2023 9:00 AM EDT Clinical Support Hematology/Oncology at [address] [phone] [facility] H[place] [address] 12/17/2023 8:30 AM EDT Office Visit Hematology/Oncology at [address] [phone] Antonio Brownlee MD [facility] [place] [address] Fani Haskins [address] HEMATOLOGY AND ONCOLOGY [place], [place] [address] 12/17/2023 9:00 AM EDT Infusion Hematology Oncology at [address] [phone] 12/30/2023 9:00 AM EST Office Visit Hematology/Oncology at [address] [phone] Antonio Brownlee MD [facility] [place] [address] Fani Haskins APRN [address] [place] [address] DR HEMATOLOGY AND ONCOLOGY [place], [place] [phone] 12/30/2023 9:30 AM EST Infusion Hematology Oncology at [address] [phone] documented as of this encounter Visit Diagnoses Not on filedocumented in this encounter Care Teams Paint Stock Clerk Relationship Specialty Start Date End Date Jez Vance MD [address] [place] [address] PCP - General 01/07/10 documented as of this encounter
--- OUTSIDE RECORDS SUMMARY | 2023-12-03 01:11 | XMS_ITS | Encounter Summary ---
Author Organization [facility] Address [facility] [place] [address] Care Team Providers Care Quarry Manager Name Role Phone Jez Vance MD Primary Care Provider [phone] [phone] Encounter Details Date Type Department Care Team (Latest Contact Info) Description 11/09/2023 12:28 PM EDT - 11/09/2023 11:59 PM EDT Hospital Encounter Hematology [place] [address] Malignant neoplasm of head of pancreas; Malignant [...] from your doctor or pharmacy? Never 11/04/2023 [facility] Utilities Answer Date Recorded In the past 12 months has [employer], gas, oil, or water company threatened [...] in a halfway (including now)? No 08/06/2022 Housing Stability Vital [...] time in the past 12 m [facility], were you homeless or living in a halfway (including now)? No 11/04/2023 IPV Inpatient Questions [...] Sig Dispensed Refills Start Date End Date vidoxe-jbsibkoy-owaznux (Creon 24) 24,000-76,000 -120,000 unit capsuleIndications:Malign ant [...] 8:00 AM EDT Office Visit Hematology/Oncology at [address] [phone] Antonio Brownlee MD [facility] [place] [address] Fani Haskins [address] HEMATOLOGY [place] [address] 12/03/2023 8:30 AM EDT Infusion Hematology Oncology at [address] [phone] 12/03/2023 9:00 AM EDT Clinical Support Hematology/Oncology at [address] [phone] [facility] HEMATOLOGY [place] [address] 12/17/2023 8:30 AM EDT Office Visit Hematology/Oncology at [address] [phone] Antonio Brownlee MD [facility] [place] [address] Fani Haskins [address] HEMATOLOGY [place] [address] 12/17/2023 9:00 AM EDT Infusion Hematology Oncology at [address] [phone] 12/30/2023 9:00 AM EST Office Visit Hematology/Oncology at [address] [phone] Antonio Brownlee MD [facility] DR [facility] [place] [place] [address] HEMATOLOGY AND ONCOLOGY [place], [place] [address] 12/30/2023 9:30 AM EST Infusion Hematology Oncology at [address] [phone] Pending Results Name Type Priority Associated Diagnoses [...] PGx Oncology (11/09/2023 12:35 PM EDT) Pathologist [facility] NGS Report Status Abnormal(A ) 11/17/2023 9:14 AM EDT [facility] Blood VENOUS BLOOD SPECIMEN / Unknown Venipuncture / Unknown 11/09/2023 12:35 PM EDT 11/09/2023 12:36 PM EDT Antonio Brownlee MD MOLECULAR ORDERABLES Performing Organization Address City/[facility]/ZIP Co de Phone Number [facility] [place] [address] * (ABNORMAL) Carbohydrate Antigen 19-9 (11/09/2023 12:35 PM EDT) [facility] CA 19-9 110.0(H) <=35.0 units/mL 11/09/2023 1:35 PM EDT [facility] Comment:This result was gene rated using a Doreen Danis immunoassay. Results obtained from other methods or manufacturers cannot be used interchangeably with this method. Blood VENOUS BLOOD SPECIMEN / Unknown Venipuncture / Unknown 11/09/2023 12:35 PM EDT 11/09/2023 12:36 PM EDT Antonio Brownlee MD CHEMISTRY ORDERABLES Performing Organization Address [facility] Co de Phone Number [facility] [place] [address] * (ABNORMAL) Comprehensive metabolic panel Non-fasting (11/09/2023 12:35 PM EDT) [facility] Glucose 115 65 - 199 mg/dL 11/09/2023 1:29 PM EDT [facility] Comment:Glucose Concentratio n >=200 mg/dL plus symptoms is consistent with Diabetes Mellitus. Blood Urea Nitrogen 15 10 - 20 mg/dL 11/09/2023 1:29 PM EDT [facility] Creatinine 0.68(L) 0.80 - 1.50 mg/dL 11/09/2023 1:29 PM EDT [facility] Sodium 138 135 - 145 mMol/L 11/09/2023 1:[address] [facility] Potassium 4.0 3.5 - 5.0 mMol/L 11/09/2023 1:[address] [facility] Chloride 102 98 - 107 mMol/L 11/09/2023 1:[address] [facility] Carbon Dioxide 24 22 - 31 mMol/L 11/09/2023 1:[address] [facility] Anion Gap 12 5 - 15 mMol/L 11/09/2023 1:[address] [facility] Calcium 8.9 8.5 - 10.5 mg/dL 11/09/2023 1:[address] [facility] Protein, Total 6.6 6.1 - 8.0 g/dL 11/09/2023 1:[address] [facility] Albumin 4.2 3.2 - 5.2 g/dL 11/09/2023 1:[address] [facility] Aspartate Aminotransferase 21 <=39 unit/L 11/09/2023 1:[address] [facility] Alanine Aminotransferase 50 0 - 55 unit/L 11/09/2023 1:[address] [facility] Alkaline Phosphatase 159(H) 40 - 130 unit/L 11/09/2023 1:[address] [facility] Bilirubin, Total 0.9 <=1.3 mg/dL 11/09/2023 1:[address] [facility] Est Glomerular Filtration Rate - Male 93 mL/min/1. 73 m?? 11/09/2023 1:[address] [facility] Comment: This patient's estimated GFR [...] Fasting Status No 11/09/2023 1:29 PM EDT [facility] Blood VENOUS BLOOD SPECIMEN / Unknown Venipuncture / Unknown 11/09/2023 12:35 PM EDT 11/09/2023 12:36 PM EDT Antonio Brownlee MD CHEMISTRY ORDERABLES [facility] [place] [address] * (ABNORMAL) CBC (with Diff) (11/09/2023 12:35 PM EDT) White Blood Cell 7.04 4.00 - 9.50 x10(3)/mc L 11/09/2023 1:00 PM EDT [facility] Red Blood Cell 3.81(L) 4.58 - 5.54 x10(6)/mc L 11/09/2023 1:00 PM EDT [facility] Hemoglobin 12.5(L) 13.7 - 16.5 g/dL 11/09/2023 1:00 PM T [facility] Hematocrit 36.5(L) 40.5 - 48.5 % 11/09/2023 1:00 PM EDT [facility] Mean Cell Volume 95.8(H) 82.9 - 93.1 fL 11/09/2023 1:00 PM EDT [facility] Mean Cell Hemoglobin 32.8(H) 27.5 - 32.1 pg 11/09/2023 1:00 PM EDT [facility] Mean Cell Hemoglobin Concentration 34.2 32.0 - 35.7 g/dL 11/09[facility]2023 [facility] Platelet 256 145 - 357 x10(3)/mc L 11/09/2023 1:00 PM EDT [facility] Mean Platelet Volume 10.7 7.6 - 12.9 fL 11/09/2023 1:[address] [facility] RDW Standard Deviation 44.8 36.0 - 45.0 fL 11/09/2023 1:[address] [facility] RDW coefficient of variation 12.8 11.4 - 13.8 % 11/09/2023 1:[address] [facility] NRBC% auto 0.0 % 11/09/2023 1:[address] [facility] NRBC Absolute <0.01 <0.01 x10(3)/mc L 11/09/2023 1:[address] [facility] Neutrophil % 74.7 % 11/09/2023 1:[address] [facility] Neutrophil Absolute (ANC) - Automated 5.26 1.70 - 6.10 x10(3)/mc L 11/09/2023 1:[address] [facility] Lymph % 14.9 % 11/09/2023 1:[address] [facility] Lymph Absolute 1.05 0.90 - 3.20 x10(3)/mc L 11/09/2023 1:[address] [facility] Monocyte % 7.5 % 11/09/2023 1:[address] [facility] Monocyte Absolute 0.53 0.30 - 0.90 x10(3)/mc L 11/09/2023 1:00 [facility] Eos % 2.0 % 11/09/2023 1:[address] [facility] Eos Absolute 0.14 0.00 - 0.40 x10(3)/mc L 11/09/2023 1:[address] [facility] Basophil % 0.6 % 11/09/2023 1:[address] 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
--- OUTSIDE RECORDS SUMMARY | 2023-12-03 01:11 | XMS_ITS | Encounter Summary ---
Author Organization [facility] Address [facility] [place] [address] Care Team Providers Care Human Resources Benefits Assistant Name Role Phone Jez Vance MD Primary Care Provider [phone] Encounter Details Date Type Department Care Team (Latest Contact Info) Description 11/23/2023 Travel Social History Tobacco Use Types Packs/Day [...] from your doctor or pharmacy? Never 11/04/2023 [facility] Utilities Answer Date Recorded In the [...] place to sleep or slept in a intermediate (including now)? No 08/06/2022 Housing Stability Vital Sign Answer Omari e Recorded In the last 12 months, was t here a time when you were not able to pay the mortgage or rent on time? No 11/04/2023 In the past 12 months, how m any times have you moved where you were living? 1 11/04/2023 At any time in the past 12 m [facility], were you homeless or living in a intermediate (including now)? No 11/04/2023 DH IPV Inpatient [...] 8:00 AM EDT Office Visit Hematology/Oncology at [address] [phone] Antonio Brownlee MD [facility] [place] [address] Fani Haskins APRN [address] [place] [address] DR HEMATOLOGY AND ONCOLOGY [place], [place] [phone] 12/03/2023 8:30 AM EDT Infusion Hematology Oncology at [address] [phone] 12/03/2023 9:00 AM EDT Clinical Support Hematology/Oncology at [address] [phone] [facility] DR HEMATOLOGY [place] [address] 12/17/2023 8:30 AM EDT Office Visit Hematology/Oncology at [address] [phone] Antonio Brownlee MD [facility] [place] [address] Fani Haskins [address] HEMATOLOGY AND ONCOLOGY [place], [place] [id number] 12/17/2023 9:00 AM EDT Infusion Hematology Oncology at [address] [phone] 12/30/2023 9:00 AM EST Office Visit Hematology/Oncology at [address] [phone] Antonio Brownlee MD [facility] [place] [address] F[address] Haskins [address] HEMATOLOGY AND ONCOLOGY [place], [place] [phone] 12/30/2023 9:30 AM EST Infusion Hematology Oncology at [address] [phone] documented as of this encounter Visit Diagnoses Not on filedocumented in this encounter Care Teams Human Resources Benefits Assistant Relationship Specialty Start Date End Date Jez Vance MD [address] [place] [address] PCP - General 01/07/10 documented as of this encounter
--- OUTSIDE RECORDS SUMMARY | 2023-12-03 01:11 | XMS_ITS | Encounter Summary ---
Author Organization [facility] [place] [address] Care Team Providers Care Heel Sewer Name Role Phone Jez Vance MD Primary Care Provider [phone] Encounter Details Date Type Department Care Team (Late st Contact Info) Description 12/02/2023 Telephone Hematology [place] [phone] [facility] [place] Hematology/[place] [address] Social History Tobacco Use Types Packs/Day Years [...] your doctor or pharmacy? Never 11/04/2023 [facility] Utilities Answer Date Recorded In the past 12 months has e [employer], gas, oil, or water company threatened to [...] in a halfway (including now)? No 11/04/2023 DH IPV Inpatient [...] encounter Miscellaneous Notes * Telephone Encounter - Kemal Matthews LGC - 12/02/2023 3:57 PM EDT This test result was discussed with the patient by phone. A copy of the test results have been scanned in the medical record and sent to Benny. A summary of the results is provided below. Please be advised that [place] law requires that all health care workers respect the confidentiality of this information and not pass it along to other health care providers, insurance companies, or individuals without the written permission of the patient. The Familial Cancer Program welcomes any questions about these matters. Our phone number is: [phone]. On 11/09/2023 Benny was seen for genetic counseling and subsequently underwent genetic testing for a hereditary predisposition to cancers in eight major organ systems including breast, gynecologic, gastrointestinal, endocrine, genitourinary, skin, brain/nervous system, sarcoma and hematologic. Following are the results of this test. Result: [facility] CancerNext-Expanded +AvidBiotics Panel showed no pathogenic mutations were detected. This means that Benny does not carry a mutation in the genes detectable by this test. The following 71 genes were analyzed: AIP, ALK, APC, GINO, BAP1, BARD1, BMPR1A, BRCA1, BRCA2, BRIP1, CDC73, CDH1, CDK4, CDKN1B, CDKN2A, CHEK2, DICER1, FH, FLCN, KIF1B, LZTR1, MAX, MEN1, MET, MLH1, MSH2, MSH6, MUTYH, NF1, NF2, NTHL1, PALB2, PHOX2B, PMS2, POT1, SDTVE2M, PTCH1, PTEN, RAD51C, RAD51D, RB1, RET, SDHA, SDHAF2, SDHB, SDHC, SDHD, SMAD4, SMARCA4, SMARCB1, SMARCE1, STK11, SUFU, VMFS936, TP53, TSC1, TSC2 and VHL (sequencing and deletion/duplication); AXIN2, CTNNA1, EGFR, EGLN1, HOXB13, KIT, MITF, MSH3, PDGFRA, POLD1 and POLE (sequencing only); EPCAM and GREM1 (deletion/duplication only) Two variants of uncertain significance (VUS) were detected in the following genes: MET, specifically c.2288A>G (p.N763S) MSH3, specifically c.845C>T (p.T282I) Interpretation: This test did not identify an underlying genetic cause for the personal history of prostate and pancreatic cancers or family history of prostate cancer. Possible explanations for this test result include: Benny's cancer and the cancer in his family may be due to non genetic, environmental causes. There could be a mutation in Benny's family that Benny did not inherit. There could be mutations in other cancer genes not included in this test, or in genes yet to be discovered. There is a very small chance that a pathogenic variant/mutation could be missed due to limitations in the testing. Based on these results, Benny's children do not need genetic testing for hereditary cancer risk dueto their paternal family history. If their mother's family history is of concern, we would recommend further evaluation of that side of the family by a genetic counselor. His son should still consider earlier and/or more frequent prostate cancer screening and can further discuss this with his PCP, if desired. Additional germline genetic testing for Benny is not recommended at this time. Variant of Uncertain Significance (VUS) It is unclear at this time whether the MET or MSH3 VUSs identified in Benny are cancer-associated mutations or benign changes in the genes with no increased cancer risks. [employer] is continually collecting and analyzing their data, in an effort to reclassify these variants as either cancer-causing mutations or benign changes. It is important to remember that a vast majority of variants of uncertain significance are normal, benign changes in the gene. We will be contacted by the laboratory, in the future, if a reclassification is made and we would then notify Benny. Family members should NOT be tested for the variant of uncertain significance identified in Benny in order to find out their own cancer risks. documented in this encounter Plan of Treatment Upcoming Encounters Date Type Department Care Team (Late st Contact Info) Description 12/03/2023 8:00 AM EDT Office Visit Hematology/Oncology at [address] [phone] Antonio Brownlee MD [facility] [place] [place] [address] Fani Haskins APRN [address] [place] [address] DR HEMATOLOGY AND ONCOLOGY [place], [place] [address] 12/03/2023 8:30 AM EDT Infusion Hematology Oncology at [address] [phone] 12/03/2023 9:00 AM EDT Clinical Support Hematology/Oncology at [address] [phone] [facility] [place] [address] 12/17/2023 8:30 AM EDT Office Visit Hematology/Oncology at [address] [phone] Antonio Brownlee MD [facility] [address] Fani Haskins [address] HEMATOLOGY AND ONCOLOGY [place], [place] [phone] 12/17/2023 9:00 AM EDT Infusion Hematology Oncology at [address] [phone] 12/30/2023 9:00 AM EST Office Visit Hematology/Oncology at [address] [phone] Antonio Brownlee MD [facility] [place] [address] Fani Haskins [address] HEMATOLOGY AND ONCOLOGY [place], [place] [address] 12/30/2023 9:30 AM EST Infusion Hematology Oncology at [address] [phone] documented as of this encounter Visit Diagnoses Not on filedocumented in this encounter Care Teams Heel Sewer Relationship Specialty Start Date End Date Jez Vance MD [address] [place] [address] PCP - General 01/07/10 documented as of this encounter
--- OUTSIDE RECORDS SUMMARY | 2023-12-03 01:11 | XMS_ITS | Encounter Summary ---
Author Organization [facility] Address [facility] [place] [address] Care Team Providers Care Foxing Closer Name Role Phone Jez Vance MD Primary Care Provider [phone] Encounter Details Date Type Department Care Team (Late st Contact Info) Description 11/14/2023 Multidisciplinary Ca re Committee [place] [address] Carmen Obrien MD [facility] [place] [address] Social History Tobacco Use Types Packs/Day Years [...] from your doctor or pharmacy? Never 11/04/2023 [facility] Utilities Answer Date Recorded In [...] in the past 12 m [facility], were you homeless or living in a fci (including now)? No 11/04/2023 DH IPV Inpatient [...] 8:00 AM EDT Office Visit Hematology/Oncology at [address] [phone] Antonio Brownlee MD [facility] [place] [address] Fani Haskins APRN [address] [place] [address] HEMATOLOGY [place] [address] 12/03/2023 8:30 AM EDT Infusion Hematology Oncology at [address] [phone] 12/03/2023 9:00 AM EDT Clinical Support Hematology/Oncology at [address] [phone] Nadege Howell, [facility] DR HEMATOLOGY [place] [address] 12/17/2023 8:30 AM EDT Office Visit Hematology/Oncology at [address] [phone] Antonio Brownlee MD [facility] [place] [address] HEMATOLOGY AND ONCOLOGY [place], [place] [address] 12/17/2023 9:00 AM EDT Infusion Hematology Oncology at [address] [phone] 12/30/2023 9:00 AM EST Office Visit Hematology/Oncology at [address] [phone] Antonio Brownlee MD [facility] [place] [address] HEMATOLOGY [place] [address] 12/30/2023 9:30 AM EST Infusion Hematology Oncology at [address] [phone] documented as of this encounter Visit Diagnoses Not on filedocumented in this encounter Care Teams Foxing Closer Relationship Specialty Start Date End Date Jez Vance MD [address] [place] [address] PCP - General 01/07/10 documented as of this encounter
--- OUTSIDE RECORDS SUMMARY | 2023-12-03 01:11 | XMS_ITS | Encounter Summary ---
Author Organization [facility] Address [facility] [place] [address] Care Team Providers Care Field Pipelines Supervisor Name Role Phone Jez Vance MD Primary Care Provider [phone] Encounter Details Date Type Department Care Team [...] from your doctor or pharmacy? Never 11/04/2023 [facility] Utilities Answer Date Recorded In the [...] in a mcc (including now)? No 08/06/2022 Housing Stability Vital [...] were you homeless or living in a mcc (including now)? No 11/04/2023 DH IPV Inpatient [...] 8:00 AM EDT Office Visit Hematology/Oncology at [address] [phone] Antonio Brownlee MD [facility] [place] [address] Fani Haskins APRN [address] [place] [address] DR HEMATOLOGY AND ONCOLOGY [place], [place] [phone] 12/03/2023 8:30 AM EDT Infusion Hematology Oncology at [address] [phone] 12/03/2023 9:00 AM EDT Clinical Support Hematology/Oncology at [address] [phone] [facility] [place] [address] 12/17/2023 8:30 AM EDT Office Visit Hematology/Oncology at [address] [phone] Antonio Brownlee MD [facility] [place] [address] Fani Haskins [address] HEMATOLOGY AND ONCOLOGY [place], [place] [phone] 12/17/2023 9:00 AM EDT Infusion Hematology Oncology at [address] [phone] 12/30/2023 9:00 AM EST Office Visit Hematology/Oncology at [address] [phone] Antonio Brownlee MD [facility] [place] [address] Fani Haskins [address] HEMATOLOGY AND ONCOLOGY [place], [place] [phone] 12/30/2023 9:30 AM EST Infusion Hematology Oncology at [address] [phone] documented as of this encounter Visit Diagnoses Not on filedocumented in this encounter Care Teams Field Pipelines Supervisor Relationship Specialty Start Date End Date Jez Vance MD [address] [place] [address] PCP - General 01/07/10 documented as of this encounter
--- OUTSIDE RECORDS SUMMARY | 2023-12-03 01:11 | XMS_ITS | Clinical Summary ---
Author Organization Formerly [facility] Address [facility] [place] [address] Care Team Providers Care Epic Trainer Name Role Phone Jez Vance MD Primary Care Provider [phone] Allergies Active Allergy Reactions Criticality Noted Date [...] mouth daily. 90 tablet 3 10/30/2022 Active wjbbqx-oqjbpivm-bnb lase DR (Creon 24) 24,000-76,000 -120,000 unit capsuleIndications: Malignant neoplasm of head of pancreas,Exocrine pancreatic insufficiency Take 2 po with meals and 1 po with snacks (3 snacks), 9 per day 270 capsule 11 11/09/2023 Active prochlorperazine (Compazine) 10 mg tabletIndications:C hemotherapy induced nausea and vomiting Take 1 tablet by mouth every 6 hours as needed for Nausea. 30 tablet 3 11/19/2023 Active Additional Information Patient not taking.Reported on 11/30/2023 Active Problems Problem Noted Date Diagnosed Date Malignant neoplasm of head of pancreas Hypokalemia 10/24/2023 Painless jaundice 10/23/2023 Malignant neoplasm of prostate 07/31/2022 Cancer Staging:Clinical:Stage IIC(cT1c, cN0, cM0, PSA: 11.9, Grade Group: 4) - Signed by Toro Hayes MD on 07/31/2022 Encounters Date Type Department Care Team Description 12/03/2023 8:30 AM EDT Infusion Hematology Oncology at [address] [phone] 12/02/2023 Telephone Hematology [place] [phone] Kemal Matthews LGC 12/02/2023 Orders Only Hematology [place] [phone] Antonio Brownlee MD 11/30/2023 2:30 PM EDT TH Visit (TeleHealth) Radiation Oncology at [address] [phone] Adrienne Singh PA Malignant neoplasm of prostate (Primary Dx); Androgen deprivation therapy; S/P radiotherapy 11/29/2023 Telephone Radiation Oncology at [address] [phone] Sapna Cox 11/26/2023 Travel 11/24/2023 Telephone Hematology/Oncol ogy at [address] [phone] Marbella Hermosillo RN 11/24/2023 Interpretation Only [address] [phone] Jez Vance MD 11/23/2023 Travel 11/22/2023 Telephone Hematology/Oncol ogy at [address] [phone] Emelia Obregon, CARISSA Other (Check in after first chemo- FOLFIRINOX) 11/19/2023 10:30 AM EDT Infusion Hematology Oncology at [address] [phone] Malignant neoplasm of head of pancreas 11/19/2023 10:30 AM EDT Clinical Support Hematology/Oncol ogy at [address] [phone] Nadege Howell, PALLAVI Malignant neoplasm of head of pancreas 11/19/2023 10:00 AM EDT Office Visit Hematology/Oncol ogy at [address] [phone] Antonio Brownlee MD LaRoza, Stephanie A, JAZMÍN Malignant neoplasm of head of pancreas; Chemotherapy induced nausea and vomiting 11/18/2023 Travel 11/17/2023 Orders Only Hematology and Oncology at [place] [phone] Antonio Brownlee MD 11/17/2023 Notes Only Hematology [place] [address] Larry Mike, [facility] 11/14/2023 Multidisciplinary Ca re Committee [place] [address] Carmen Obrien MD 11/12/2023 9:38 AM EDT Anesthesia Event Outpatient Surgery [place] [phone] Lore Maxwell MD Butler, Eric J, HUMBERTO 11/12/2023 9:29 AM EDT - 11/12/2023 11:14 AM EDT [place] [address] Carmen Obrien MD YUNG\NGUYEN.CATHETER,TU NNELED, WITH SQ PORT OR PUMP OVER 5YR (WRVU 5.79) 11/12/2023 7:40 AM EDT - 11/12/2023 12:00 PM EDT Hospital Encounter Outpatient Surgery Center [place] [phone] Carmen Obrien MD Cardiac arrhythmia, unspecified cardiac arrhythmia type Discharge Disposition: Home 11/12/2023 Travel 11/09/2023 1:30 PM EDT Clinical Support Hematology and Oncology at [place] [phone] Malignant neoplasm of prostate 11/09/2023 12:28 PM EDT - 11/09/2023 11:59 PM EDT Hospital Encounter Hematology and Oncology at [place] [phone] Malignant neoplasm of head of pancreas; Malignant neoplasm of prostate Discharge Disposition: Home 11/09/2023 11:00 AM EDT Office Visit Hematology and Oncology at [place] [phone] Antonio Brownlee MD Malignant neoplasm of head of pancreas; Exocrine pancreatic insufficiency 11/09/2023 10:30 AM EDT Office Visit Hematology and Oncology at [place] [phone] Kemal Matthews LGC Malignant neoplasm of head of pancreas; Malignant neoplasm of prostate; Family history of prostate cancer 11/09/2023 9:30 AM EDT Office Visit General Surgery at [place] [phone] Carmen Obrien MD Malignant neoplasm of head of pancreas 11/09/2023 Telephone Hematology/Oncol ogy at [address] [phone] Kelly Buchanan 11/08/2023 Travel 11/08/2023 Orders Only Hematology and Oncology at [place] [phone] Kemal Matthews V, LGC Malignant neoplasm of head of pancreas; Malignant neoplasm of prostate 11/04/2023 Travel 11/01/2023 Telephone Radiation Oncology at [address] [phone] Sapna Cox 10/30/2023 Travel 10/29/2023 Telephone General Surgery at [place] [address] Carmen Obrien MD 10/28/2023 Orders Only Gastroenterology at [place] [phone] Andrew Reynoso MD 10/28/2023 Orders Only Gastroenterology at [place] [phone] Andrew Reynoso MD 10/25/2023 2:39 PM EDT Anesthesia Event Gastroenterology at [place] [address] Kenyatta Sarmiento MD Wen, Louise Y, MD 10/25/2023 1:55 PM EDT Ancillary Procedure Gastroenterology at [place] [address] 10/25/2023 1:53 PM EDT - 10/25/2023 3:08 PM EDT Surgery Gastroenterology at [place] [phone] Andrew Reynoso MD UPPER EUS- ENDOSCOPIC ULTRASOUND (WRVU 3.47) 10/25/2023 Notes Only Gastroenterology at [address] Patrizia Bassett 10/23/2023 12:17 PM EDT - 10/27/2023 3:16 PM EDT Hospital Encounter Hematology/Oncol ogy Unit Level 1 Wing D at [place] [phone] Leia Henley MD Gruber, Anjum A, MD Rj Rizvi MD Pokharel, Ashik, MD Jaundice; Pancreatic mass; Hypokalemia; Painless jaundice; Malignant neoplasm of prostate Discharge Disposition: Home 10/23/2023 Travel 10/21/2023 [place] [address] Brielle Lowry PA Other specified diseases of pancreas; Abnormal weight loss; Pruritus, unspecified; Unspecified abdominal pain 10/21/2023 Interpretation Only [address] [phone] Jez Vance MD from Last 3 Months [...] from your doctor or pharmacy? Never 11/04/2023 [facility] Utilities Answer Date Recorded In the past 12 months has [facility] electric, gas, oil, or water [employer] threatened to shut off services in your [...] any time in the past 12 m [facility], were you homeless or [...] 8:00 AM EDT Office Visit Hematology/Oncology at [address] [phone] Antonio Brownlee MD [facility] [place] [address] [address] HEMATOLOGY AND ONCOLOGY [place], [place] [phone] 12/03/2023 8:30 AM EDT Infusion Hematology Oncology at [address] [phone] 12/03/2023 9:00 AM EDT Clinical Support Hematology/Oncology at [address] [phone] [facility] DR [place] [address] 12/17/2023 8:30 AM EDT Office Visit Hematology/Oncology at [address] [phone] Antonio Brownlee MD [facility] [place] [address] Fani Haskins, [address] HEMATOLOGY AND ONCOLOGY [place], [place] [phone] 12/17/2023 9:00 AM EDT Infusion Hematology Oncology at [address] [phone] 12/30/2023 9:00 AM EST Office Visit Hematology/Oncology at [address] [phone] Antonio Brownlee MD [facility] [place] [address] Fani Haskins APRN [address] [place] [address] DR HEMATOLOGY AND ONCOLOGY [place], [place] [phone] 12/30/2023 9:30 AM EST Infusion Hematology Oncology at [address] [phone] Health Maintenance Due Date Last Done Comments Tetanus/Diphtheria/Pertussis Vaccines (1 - Tdap) 06/21 Zoster vaccine (1 of 2) 1992 Pneumoccocal Vaccine: 65+ (1 of 1 - PCV) 06/22/2007 Covid-19 Vaccine (1 - season) 2023 Influenza (Flu) vaccine (1 o f 1 - Influenza standard series) 10/17/2023 Medical Devices Implanted Type Area Associate Director Finance Device Identifier Shelf Expiration Date Model / Serial / Lot Stent Wallflex [id number] Rx Platinol Fully Covered ([id number]) - [id number] Implanted:Qty: 1 on 10/25/2023 by Andrew Reynoso MD at [facility] IMPLANTS Bile Duct [employer] - Ryan [id number] 07/21/2025 [id number] / / [id number] Port Infusion 8fr Cath Power Lp Ct Plastic Dignity ([id number]) - [id number] Implanted:Qty: 1 on 11/12/2023 by Carmen Obrien MD at [facility] IMPLANTS N/A: Chest [employer] - MEDCOMP [place] 05/15/2028 [id number] / / [id number] Procedures Procedure Name Priority Date/Time Associated Diagnosis Comments LAB SCAN 11/19/2023 12:00 AM EDT LAB SCAN 11/17/2023 12:00 AM EDT XR CHEST ONE VIEW Routine 11/12/2023 11: 33 AM EDT EKG 12-LEAD STAT 11/12/2023 11:23 AM EDT Cardiac arrhythmia, unspecified cardiac arrhythmia type XR FLUORO NO RAD <1HR - OR USE Routine 11/12/2023 10:35 AM EDT Fluoroscopy Exam Up To 1 Hr Phy Or Oth [facility] Care Prov (99567) Yes 11/12/2023 9:38 AM EDT PANCREAS CANCER Insert Tunneled CV Cath w SubQ Port, Age 5 Yrs or Older (07798) Yes 11/12/2023 9:38 AM EDT PANCREAS CANCER Lap, Diagnostic Abdomen (16039) Yes 11/12/2023 9:38 AM EDT PANCREAS CANCER [...] EDT Ercp Stent Placement Biliary Or Pancreatic Duct(45831) 10/25/2023 2:37 PM EDT pancreas head mass CHOLANGIOGRAM 10/25/2023 2:37 PM EDT pancreas head mass Ercp Balloon Dilatation Biliary/Pancreatic Duct Or Ampulla Ea Duct (57913) 10/25/2023 2:37 PM EDT pancreas head mass Ercp, Sphincterotomy (80007) 10/25/2023 2:37 PM EDT pancreas head mass Upgi Endoscopy W/Us Fn Bx (30268) 10/25/2023 2:37 PM EDT pancreas head mass Ercp, Diagnostic (44195) 10/25/2023 2:37 PM EDT pancreas head mass Endoscopic Us Exam, Esoph (43974) 10/25/2023 2:37 PM EDT pancreas head mass [...] 10/23/2023 1:10 PM EDT TYPE AND SCREEN ([facility]Y) STAT 10/23/2023 12:32 PM EDT CBC (WITH [...] Scan Doc: Lab (11/19/2023 12:00 AM EDT) Only the most recent of2 resultswithin the time period is included. Narrative 11/19/2023 12:00 AM EDT Ordered by an unspecified provider. Scanning Provider MEDIA MGR SCAN EXT O RDR/RSLT * XR Chest One View (11/12/2023 11:33 AM EDT) [employer] WORKSTATION ID [id number] RAD Anatomical Region Laterality Modality Chest N/A [...] who have questions please contact the health managed care nurse that requested your imaging first. ? Narrative 11/12/2023 3:22 PM EDT EXAMINATION: XR [...] patients who have questions please contactthe health managed care nurse that requested your imaging first. Carmen Obrien MD IMG DX ORDERABLES * [...] (Bezet) 474 ms MUSE SYSTEM Calculated P Gaines 49 degrees MUSE SYSTEM Calculated R Gaines -55 degrees MUSE SYSTEM Calculated T Gaines 8 degrees MUSE SYSTEM INTERPRETATION Sinus bradycardia [...] (ABNORMAL) PGx Oncology (11/09/2023 12:35 PM EDT) [facility] NGS Report Status Abnormal(A ) 11/17/2023 9:14 AM EDT [facility] Blood VENOUS BLOOD SPECIMEN / Unknown Venipuncture / Unknown 11/09/2023 12:35 PM EDT 11/09/2023 12:36 PM EDT Antonio Brownlee MD MOLECULAR ORDERABLES Performing Organization Address City/[facility]/ZIP Co de Phone Number [facility] [place] [address] * (ABNORMAL) Carbohydrate Antigen 19-9 (11/09/2023 12:35 PM EDT) Only the most recent of2 resultswithin the time period is included. [facility] CA 19-9 110.0(H) <=35.0 units/mL 11/09/2023 1:35 PM EDT [facility] Comment:This result was gene rated using a Doreen Danis immunoassay. Results obtained from other methods or manufacturers cannot be used interchangeably with this method. Blood VENOUS BLOOD SPECIMEN / Unknown Venipuncture / Unknown 11/09/2023 12:35 PM EDT 11/09/2023 12:36 PM EDT Antonio Brownlee MD CHEMISTRY ORDERABLES Performing Organization Address City/[facility]/ZIP Co de Phone Number [facility] [place] [address] * (ABNORMAL) CBC (with Diff) (11/09/2023 12:35 PM EDT) Only the most recent of6 resultswithin the time period is included. [facility] White Blood Cell 7.04 4.00 - 9.50 x10(3)/mc L 11/09/2023 1:00 PM [facility] Red Blood Cell 3.81(L) 4.58 - 5.54 x10(6)/mc L 11/09/2023 1:00 PM [facility] Hemoglobin 12.5(L) 13.7 - 16.5 g/dL 11/09/2023 1:00 PM [facility] Hematocrit 36.5(L) 40.5 - 48.5 % 11/09/2023 1:00 PM [facility] Mean Cell Volume 95.8(H) 82.9 - 93.1 fL 11/09/2023 1:00 PM [facility] Mean Cell Hemoglobin 32.8(H) 27.5 - 32.1 pg 11/09/2023 1:00 PM [facility] Mean Cell Hemoglobin Concentration 34.2 32.0 - 35.7 g/dL 11/09/2023 1:00 PM [facility] Platelet 256 145 - 357 x10(3)/mc L 11/09/2023 1:00 PM [facility] Mean Platelet Volume 10.7 7.6 - 12.9 fL 11/09/2023 1:00 PM [facility] RDW Standard Deviation 44.8 36.0 - 45.0 fL 11/09/2023 1:00 PM [facility] RDW coefficient of variation 12.8 11.4 - 13.8 % 11/09/2023 1:00 PM [facility] NRBC% auto 0.0 % 11/09/2023 1:00 PM [facility] NRBC Absolute <0.01 <0.01 x10(3)/mc L 11/09/2023 1:00 PM [facility] Neutrophil % 74.7 % 11/09/2023 1:00 PM [facility] Neutrophil Absolute (ANC) - Automated 5.26 1.70 - 6.10 x10(3)/mc L 11/09/2023 1:00 PM EDT [facility] Lymph % 14.9 % 11/09/2023 1:00 PM EDT [facility] Lymph Absolute 1.05 0.90 - 3.20 x10(3)/mc L 11/09/2023 1:00 PM EDT [facility] Monocyte % 7.5 % 11/09/2023 1:00 PM EDT [facility] Monocyte Absolute 0.53 0.30 - 0.90 x10(3)/mc L 11/09/2023 1:00 PM EDT [facility] Eos % 2.0 % 11/09/2023 1:00 PM EDT [facility] Eos Absolute 0.14 0.00 - 0.40 x10(3)/mc L 11/09/2023 1:00 PM EDT [facility] Basophil % 0.6 % 11/09/2023 1:00 PM EDT [facility] Baso Absolute 0.04 0.00 - 0.10 x10(3)/mc L 11/09/2023 1:00 PM EDT [facility] Immature Gran % 0.3 % 1:00 PM EDT [facility] Immature Gran Absolute <0.04 0.00 - 0.04 x10(3)/mc L 11/09/2023 1:00 PM EDT [facility] Blood VENOUS BLOOD SPECIMEN / Unknown Venipuncture / Unknown 11/09/2023 12:35 PM EDT 11/09/2023 12:36 PM EDT Antonio Brownlee MD HEMATOLOGY ORDERABLE S [facility] [place] [address] * (ABNORMAL) Comprehensive metabolic panel Non-fasting (11/09/2023 12:35 PM EDT) Only the most recent of6 resultswithin the time period is included. Glucose 115 65 - 199 mg/dL 11/09/2023 1:29 PM [facility] Comment:Glucose Concentratio n >=200 mg/dL plus symptoms is consistent with Diabetes Mellitus. Blood Urea Nitrogen 15 10 - 20 mg/dL 11/09/2023 1:29 PM [facility] Creatinine 0.68(L) 0.80 - 1.50 mg/dL 11/09/2023 1:29 PM [facility] Sodium 138 135 - 145 mMol/L 11/09/2023 1:29 PM [facility] Potassium 4.0 3.5 - 5.0 mMol/L 11/09/2023 1:29 PM [facility] Chloride 102 98 - 107 mMol/L 11/09/2023 1:29 PM [facility] Carbon Dioxide 24 22 - 31 mMol/L 11/09/2023 1:29 PM [facility] Anion Gap 12 5 - 15 mMol/L 11/09/2023 1:29 PM [facility] Calcium 8.9 8.5 - 10.5 mg/dL 11/09/2023 1:29 PM [facility] Protein, Total 6.6 6.1 - 8.0 g/dL 11/09/2023 1:29 PM [facility] Albumin 4.2 3.2 - 5.2 g/dL 11/09/2023 1:29 PM [facility] Aspartate Aminotransferase 21 <=39 unit/L 11/09/2023 1:29 PM [facility] Alanine Aminotransferase 50 0 - 55 unit/L 11/09/2023 1:29 PM [facility] Alkaline Phosphatase 159(H) 40 - 130 unit/L 11/09/2023 1:29 PM [facility] Bilirubin, Total 0.9 <=1.3 mg/dL 11/09/2023 1:29 PM EDT [facility] Est Glomerular Filtration Rate - Male 93 mL/min/1. 73 m?? 11/09/2023 1:29 PM EDT [facility] Comment: [...] Fasting Status No 11/09/2023 1:29 PM EDT [facility] Blood VENOUS BLOOD SPECIMEN / Unknown Venipuncture / Unknown 11/09/2023 12:35 PM EDT 11/09/2023 12:36 PM EDT Antonio Brownlee MD CHEMISTRY ORDERABLES Performing Organization Address City/[facility]/ZIP Co de Phone Number [facility] [place] [address] * (ABNORMAL) Phosphorus (10/27/2023 3:35 AM EDT) Only the most recent of3 resultswithin the time period is included. Phosphorus 2.4(L) 2.5 - 4.5 mg/dL 10/27/2023 5:56 AM EDT [facility] Blood VENOUS BLOOD SPECIMEN / Unknown IP Care Team Draw / Unknown 10/27/2023 3:35 AM EDT 10/27/2023 3:47 AM EDT Ros Gonzáles MD CHEMISTRY ORDERABLES [facility] [place] [address] * (ABNORMAL) Magnesium (10/27/2023 3:35 AM EDT) Only the most recent of3 resultswithin the time period is included. Pathologist [facility] Magnesium 0.63(L) 0.69 - 1.07 mMol/L 10/27/2023 5:56 AM EDT [facility] Blood VENOUS BLOOD SPECIMEN / Unknown IP Care Team Draw / Unknown 10/27/2023 3:35 AM EDT 10/27/2023 3:47 AM EDT Ros Gonzáles MD CHEMISTRY ORDERABLES Performing Organization Address [facility] de Phone Number [facility] [place] [address] * XR ERCP (10/25/2023 4:40 PM EDT) Narrative [facility] - 10/25/2023 4:45 PM EDT See PACS for result report. Ros Gonzáles MD IMG FILM LIBRARY ORD ERABLES Performing Organization Address [facility] de Phone Number [place], [place] * (ABNORMAL) Cytology FNA (10/25/2023 3:19 PM EDT) [facility] Case Report Medical Cytology Report ? Case: [id number] ? Authorizing Provider: ??Ros Gonzáles MD ?Collected: ? 10/25/2023 1519 ? Ordering Location: ? Gastroenterology at [facility] ?? Received: ?10/25/2023 1627 ? Pathologist: ? Garrick Vuong MD ? Specimen: ?Pancreas, Head, mass ? 10/28/2023 11:54 AM [facility] Specimen Source Pancreas, Head (EUS-guided FNA) 10/28/2023 11:54 AM [facility] Final Diagnosis Positive for malignancy 10/28/2023 11:54 AM [facility] Diagnosis Discussion Adenocarcinoma. (Cell block was examined.) 10/28/2023 11:54 AM [facility] Specimen Adequacy Satisfactory for evaluation. 10/28/2023 11:54 AM [facility] Additional Studies Block Antibody Result A2 [...] The assays were performed according to the assistant clinical nurse manager's instructions using anti MLH-1 (ES05), anti-MSH-2 ([id number]), andti-MSH-6 (44), and anti-PMS-2 (MRQ-28) antibodies. 10/28/2023 11:54 AM [facility] Disclaimer(s) Formalin-fixed, paraffin-embedded tissue sections are [...] and other diagnostic tests. 10/28/2023 11:54 AM T [facility] Clinical Information 83 yrs old male/EUS/ERCP/ pancreas head mass, malignant biliary obstruction 10/28/2023 11:54 AM EDT [facility] Immediate Assessment Fine Needle [...] Discussion for final interpretation. 10/28/2023 11:54 AM T [facility] Gross Description Received in formalin, approximately 45 mL total volume of cloudy, red fluid with clots. Total preparation: Diff-Quik slide(s): 4, Pap Stain slide(s): 4, and Cell Block: 1. 10/28/2023 11:54 AM EDT [facility] Result Note THIS RESULT REQUIRES PHYSICIAN/CRYSTAL FOLLOW UP(A) 10/28/2023 11:54 AM [facility] Fine Needle Aspirate STRUCTURE OF HEAD OF PANCREAS / Unknown Non Blood Collection / Unknown 10/25/2023 3:19 PM EDT 10/25/2023 4:27 PM EDT Ros Gonzáles MD PATHOLOGY/CYTOLOGY O RDERABLES [facility] [place] [phone] * ERCP (10/25/2023 2:24 PM EDT) ERCP [facility] Endoscopy Procedure Date: 10/25/2023 2:24 PM ? Patient Name: Benny Zurita ? Date of : 1940 ? Age: 83 ? Order #: [id number] ? Instrument Name: [id number] ? Procedure: ? ERCP Providers: ? Aaron Alvarado ? Mariah Olmos, ? Senior Report Developer Referring MD: ?Andres Benitez MD Complications: ? [...] (10/25/2023 2:23 PM EDT) UPPER ENDOSCOPIC ULTRASOUND [facility] Endoscopy Procedure Date: 10/25/2023 2:23 PM ? Patient Name: Benny Zurita ? Date of : 1940 ? Age: 83 ? Order #: [id number] ? Instrument Name: [id number] ? Procedure: ? Upper EUS Patient Profile: ? 83m with suspected malignant ? biliary obstruction Providers: ? Aaron Alvarado ? Mariah Olmos, ? Senior Report Developer Referring MD: ? Medicines: ? See the [...] without invasion ? - Using a 22G awe.smcore needle with stylet through ? Duodenum, FNB [...] 65 - 199 mg/dL 10/24/2023 4:48 PM [facility] Comment:Glucose Concentratio n >=200 mg/dL plus symptoms is consistent with Diabetes Mellitus. Blood Urea Nitrogen 17 10 - 20 mg/dL 10/24/2023 4:48 PM [facility] Creatinine 0.68(L) 0.80 - 1.50 mg/dL 10/24/2023 4:48 PM [facility] Sodium 131(L) 135 - 145 mMol/L 10/24/2023 4:48 PM [facility] Potassium 3.5 3.5 - 5.0 mMol/L 10/24/2023 4:48 PM [facility] Chloride 94(L) 98 - 107 mMol/L 10/24/2023 4:48 PM [facility] Carbon Dioxide 26 22 - 31 mMol/L 10/24/2023 4:48 PM [facility] Anion Gap 11 5 - 15 mMol/L 10/24/2023 4:48 PM [facility] Calcium 9.0 8.5 - 10.5 mg/dL 10/24/2023 4:48 PM [facility] Est Glomerular Filtration Rate - Male 93 mL/min/1. 73 m?? 10/24/2023 4:48 PM [facility] Comment: This patient's estimated GFR [...] EDT Rj Rizvi MD CHEMISTRY ORDERABLES [facility] [place] [address] * CT Chest w Contrast (10/24/2023 1:41 PM EDT) WORKSTATION ID [id number] RAD Anatomical Region Laterality Modality Chest Computed Tomogra phy Impressions 10/24/2023 5:21 PM EDT No metastatic disease in the chest. Thank you for letting us participate in the care of this patient. ??If you are a health care provider and have any questions regarding this report, please contact the number below. ??For patients who have questions please contact the health managed care nurse that requested your imaging first. ? [...] patients who have questions please contactthe health managed care nurse that requested your imaging first. Rj Rizvi MD IM CT ORDERABLES * ABORH RECHECK (10/23/2023 1:24 PM EDT) ABORH Recheck O POSITIVE 10/23/2023 2:12 PM EDT [facility] Blood VENOUS BLOOD SPECIMEN / Unknown IP Care Team Draw / Unknown 10/23/2023 1:24 PM EDT 10/23/2023 1:29 PM EDT Leia Rincon MD BLOOD BANK LAB ORDER RICHELLE [facility] [place] [place] [address] * CT Abdomen & Pelvis w Contrast (10/23/2023 1:10 PM EDT) [employer] Signature WORKSTATION ID [id number] RAD Anatomical Region Laterality Modality Abdomen, Pelvis [...] who have questions please contact the health managed care nurse that requested your imaging first. ? [...] patients who have questions please contactthe health managed care nurse that requested your imaging first. Leia Rincon MD IMG CT ORDERABLES * Type and screen ([facility]) (10/23/2023 12:32 PM EDT) ABORH Type O POSITIVE 10/23/2023 1:31 PM EDT [facility] PATIENT HISTORY Not Found 10/23/2023 1:31 PM EDT [facility] Expires at [phone] on: 10-26-2023 10/23/2023 1:31 PM EDT [facility] ANTIBODY SCREEN AUTOMATED Negative 10/23/2023 1:31 PM EDT [facility] T&S only valid at [facility] 10/23/2023 1:31 PM EDT [facility] Blood VENOUS BLOOD SPECIMEN / Unknown Venipuncture / Unknown 10/23/2023 12:32 PM EDT 10/23/2023 12:37 PM EDT Narrative [facility] - 10/23/2023 1:31 PM EDT This Type and Screen result is only valid at the [facility] Leia Rincon MD BLOOD BANK LAB ORDER RICHELLE [facility] [place] [address] * Lipase (10/23/2023 12:32 PM EDT) Lipase 49 0 - 60 unit/L 10/23/2023 1:11 PM EDT [facility] Blood VENOUS BLOOD SPECIMEN / Unknown Venipuncture / Unknown 10/23/2023 12:32 PM EDT 10/23/2023 12:41 PM EDT Leia Rincon MD CHEMISTRY ORDERABLES Performing Organization Address City/[facility]/ZIP Co de Phone Number [facility] [place] [address] * US Abdomen Limited (10/21/2023 9:40 AM EDT) PT CLASS O RAD ADMITDTTM [id number] RAD PT RAD INFO [id number]^Genere aux^Jez^H RAD EXAM DESC UABDLIM^US Abdomen Limited^RIS [...] who have questions please contact the health managed care nurse that requested your imaging first. ? Narrative 10/21/2023 11:12 AM EDT EXAMINATION: US [...] patients who have questions please contactthe health managed care nurse that requested your imaging first. Jez Vance MD [facility] US GEN ORDERA BLES * Scan Doc: Diagnostic Radiology (09/07/2023 12:00 AM EDT) Anatomical Region Laterality Modality Other Narrative 09/07/2023 12:00 AM EDT Ordered by an unspecified provider. Scanning Provider MEDIA MGR SCAN EXT O RDR/RSLT from Last 3 Months Advance Directives Documents on File Type Date Recorded Patient Software Quality Assurance Analyst Expl anation Advance Directives and Mierillein g Will 11/09/2023 9:44 AM * Attempt Cardiopulmonary Resuscitation - Inpatient (Latest Code Status on File) Date Activated Date Inactivated Comments 10/23/2023 6:21 PM 10/27/2023 5:22 PM Question Answer Comments Code Status decision made by: Patient Content of discussion: desires resus Care Teams Epic Trainer Relationship Specialty Start Date End Date Jez Vance MD [address] [place] [address] PCP - General 01/07/10
--- OUTSIDE RECORDS SUMMARY | 2023-12-03 01:11 | XMS_ITS | Encounter Summary ---
Author Organization [facility] Address [facility] [place] [address] Care Team Providers Care Policy Director Name Role Phone Jez Vance MD Primary Care Provider +1 [phone] Encounter Details Date Type Department Care Team (Late st Contact Info) Description 11/19/2023 10:00 AM EDT Office Visit Hematology/Oncology at [address] [phone] Antonio Brownlee MD [facility] [place] [address] Fani Haskins APRN [address] [place] [address] DR HEMATOLOGY AND ONCOLOGY [place], [place] [id number] Malignant neoplasm of head of pancreas; Chemotherapy [...] Never 11/04/2023 [facility] Utilities Answer Date Recorded In the past 12 months has e [employer], gas, oil, or water company threatened to [...] any time in the past 12 m [facility], were you homeless or living [...] prostate cancer (Stage IIC: cT1c, cN0, cM0; [place] 4+4, PSA 11.9 S/p radiation, completed in [...] but tires easily. 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 [place] Fam Hx: Father - Mother - Sibs [...] CA 19-9 11/17/23 181 11/12/23 110 (at [facility]) 10/21/23 79 (at [facility]) PGX Assessment and Plan Benny Zurita is [...] our Genetics Counselor, Rainer Matthews, and blood was drawn for genetic testing, [...] 8:00 AM EDT Office Visit Hematology/Oncology at [address] [phone] Antonio Brownlee MD [facility] [place] [address] Fani Haskins APRN [address] [place] [address] HEMATOLOGY AND ONCOLOGY [place], [place] [address] 12/03/2023 8:30 AM EDT Infusion Hematology Oncology at [address] [phone] 12/03/2023 9:00 AM EDT Clinical Support Hematology/Oncology at [address] [phone] [facility] DR [place] [address] 12/17/2023 8:30 AM EDT Office Visit Hematology/Oncology at [address] [phone] Antonio Brownlee MD [facility] [place] [address] HEMATOLOGY AND ONCOLOGY [place], [place] [address] 12/17/2023 9:00 AM EDT Infusion Hematology Oncology at [address] [phone] 12/30/2023 9:00 AM EST Office Visit Hematology/Oncology at [address] [phone] Antonio Brownlee MD [facility] [place] [address] [address] [place] [address] 12/30/2023 9:30 AM EST Infusion Hematology Oncology at [address] [phone] documented as of this encounter Visit Diagnoses Diagnosis Malignant neoplasm of head of pancreas Chemotherapy induced nausea and vomiting Nausea with vomiting Malignant neoplasm of head of pancreas documented in this encounter Care Teams Policy Director Relationship Specialty Start Date End Date Jez Vance MD [address] [place] [address] PCP - General 01/07/10 documented as of this encounter
--- OUTSIDE RECORDS SUMMARY | 2023-12-03 01:11 | XMS_ITS | Encounter Summary ---
Author Organization [facility] Address [facility] [place] [address] Care Team Providers Care Guest Room Inspector Name Role Phone Jez Vance MD Primary Care Provider +1 [phone] Encounter Details Date Type Department Care Team (Latest Contact Info) Description 11/26/2023 Travel Social History Tobacco Use Types Packs/Day [...] from your doctor or pharmacy? Never 11/04/2023 [facility] Utilities Answer Date Recorded In [...] in the past 12 m [facility], were you homeless or living in a senior living (including now)? No 11/04/2023 DH IPV Inpatient [...] 8:00 AM EDT Office Visit Hematology/Oncology at [address] [phone] Antonio Brownlee MD [facility] [place] [address] Fani Haskins APRN [address] [place] [address] DR HEMATOLOGY AND ONCOLOGY [place], [place] [id number] 12/03/2023 8:30 AM EDT Infusion Hematology Oncology at [address] [phone] 12/03/2023 9:00 AM EDT Clinical Support Hematology/Oncology at [address] [phone] [facility] DR HEMATOLOGY [place] [address] 12/17/2023 8:30 AM EDT Office Visit Hematology/Oncology at [address] [phone] Antonio Brownlee MD [facility] [place] [address] Fani Haskins [address] HEMATOLOGY AND ONCOLOGY [place], [place] [id number] 12/17/2023 9:00 AM EDT Infusion Hematology Oncology at [address] [phone] 12/30/2023 9:00 AM EST Office Visit Hematology/Oncology at [address] [phone] Antonio Brownlee MD [facility] [place] [address] Fani Haskins [address] HEMATOLOGY AND ONCOLOGY [place], [place] [id number] 12/30/2023 9:30 AM EST Infusion Hematology Oncology at [address] [phone] documented as of this encounter Visit Diagnoses Not on filedocumented in this encounter Care Teams Guest Room Inspector Relationship Specialty Start Date End Date Jez Vance MD [address] [place] [address] PCP - General 01/07/10 documented as of this encounter
--- OUTSIDE RECORDS SUMMARY | 2023-12-03 01:11 | XMS_ITS | Encounter Summary ---
Author Organization [facility] Address [facility] [place] [address] Care Team Providers Care Charge Gang Weigher Name Role Phone Jez Vance MD Primary Care Provider +1 [phone] Encounter Details Date Type Department Care Team (Late st Contact Info) Description 11/24/2023 Interpretation Only [address] [phone] Jez Vance MD [address] [place] [address] Social History Tobacco Use Types Packs/Day Years [...] from your doctor or pharmacy? Never 11/04/2023 [facility] Utilities Answer Date Recorded In [...] in a penitentiary (including now)? No 11/04/2023 DH IPV Inpatient [...] 8:00 AM EDT Office Visit Hematology/Oncology at [address] [phone] Antonio Brownlee MD [facility] [address] [address]askins [address] HEMATOLOGY AND ONCOLOGY [place], [place] [address] [phone] 12/03/2023 8:30 AM EDT Infusion Hematology Oncology at [address] [phone] 12/03/2023 9:00 AM EDT Clinical Support Hematology/Oncology at [address] [phone] [facility] [place] [address] 12/17/2023 8:30 AM EDT Office Visit Hematology/Oncology at [address] [phone] Antonio Brownlee MD [facility] [address] [address] HEMATOLOGY AND ONCOLOGY [place], [place] [address] 12/17/2023 9:00 AM EDT Infusion Hematology Oncology at [address] [phone] 12/30/2023 9:00 AM EST Office Visit Hematology/Oncology at [address] [phone] Antonio Brownlee MD [facility] [place] [address] [address] HEMATOLOGY AND ONCOLOGY [place], [place] [address] 12/30/2023 9:30 AM EST Infusion Hematology Oncology at [address] [phone] Pending Results Name Type Priority Associated Diagnoses Date /Time US Echocardiogram Imaging Routine 024 10:00 AM EDT documented as of this encounter Visit Diagnoses Not on filedocumented in this encounter Care Teams Charge Gang Weigher Relationship Specialty Start Date End Date Jez Vance MD [address] [place] [address] PCP - General 01/07/10 documented as of this encounter
--- OUTSIDE RECORDS SUMMARY | 2023-12-03 01:11 | XMS_ITS | Encounter Summary ---
Author Organization [facility] Address [facility] [place] [address] Care Team Providers Care Barrel Cleaner Name Role Phone Jez Vance MD Primary Care Provider +1 [phone] Reason for Visit * Reason Comments Chemotherapy * Treatment/Therapy Plan Authorization (Routine) - Authorized Specialty Diagnoses / Procedures Referred By Deena yao Referred To Contact Diagnoses Malignant neoplasm of head of pancreas Procedures INFUSION Antonio Brownlee MD [facility] [place] [address] Stj Hem Onc Infusion [address] [place] [phone] Referral ID Status Reason Start Date Expiration Date V isits Requested Visits Authorized [id number] Authorized 11/09/2023 11/08/2024 1 99 Encounter Details Date Type Department Care Team (Late st Contact Info) Description 11/19/2023 10:30 AM EDT Infusion Hematology Oncology at [address] [phone] Malignant neoplasm of head of [...] from your doctor or pharmacy? Never 11/04/2023 [facility] Utilities Answer Date Recorded In the [...] a skilled nursing (including now)? No 08/06/2022 Housing Stability Vital Sign Answer Omari e Recorded In the last 12 months, was t here a time when you were not able to pay the mortgage or rent on time? No 11/04/2023 In the past 12 months, how m any times have you moved where you were living? 1 11/04/2023 At any time in the past 12 m [facility], were you homeless or living in a skilled nursing (including now)? No 11/04/2023 IPV Inpatient Questions [...] offers no complaints, he met with Fani Haskins APRN prior to infusion, ready for treatment. [...] clinic hours (8am-5pm Wednesday-Wednesday): pt. can call [phone] with questions or concerns. After clinic hours (5pm-8am Wednesday-Wednesday and weekends) pt can call [phone] and ask for the director automotive/oncologist res habilitation assistant. Benny Zurita verbalized understanding of potential chemotherapy [...] for home useafter chemotherapy. PLAN Disconnect at [facility] on Monday 11/20 at 1400. documented in this encounter Plan of Treatment Upcoming Encounters Date Type Department Care Team (Late st Contact Info) Description 12/03/2023 8:00 AM EDT Office Visit Hematology/Oncology at [address] [phone] Antonio Brownlee MD [facility] [place] [address] Fani Haskins [address] HEMATOLOGY AND ONCOLOGY [place], [place] [address] 12/03/2023 8:30 AM EDT Infusion Hematology Oncology at [address] [phone] 12/03/2023 9:00 AM EDT Clinical Support Hematology/Oncology at [address] [phone] [facility] DR [place] [address] 12/17/2023 8:30 AM EDT Office Visit Hematology/Oncology at [address] [phone] Antonio Brownlee MD [facility] [place] [address] Fani Haskins [address] [place] [address] 12/17/2023 9:00 AM EDT Infusion Hematology Oncology at [address] [phone] 12/30/2023 9:00 AM EST Office Visit Hematology/Oncology at [address] [phone] Antonio Brownlee MD [facility] [place] [address] Fani Haskins APRN [address] [place] [address] DR HEMATOLOGY AND ONCOLOGY [place], [place] [phone] 12/30/2023 9:30 AM EST Infusion Hematology Oncology at [address] [phone] documented as of this encounter Visit Diagnoses Diagnosis 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 Administer prior to chemotherapy., Routine Given 11/19/2023 [...] mg documented in this encounter Care Teams Barrel Cleaner Relationship Specialty Start Date End Date Jez Vance MD [address] [place] [address] PCP - General 01/07/10 documented as of this encounter
--- OUTSIDE RECORDS SUMMARY | 2023-12-03 01:11 | XMS_ITS | Encounter Summary ---
Author Organization [facility] Address [facility] [place] [address] Care Team Providers Care Bricklayer Tender Name Role Phone Jez Vance MD Primary Care Provider +1 -[phone] Encounter Details Date Type Department Care Team (Late st Contact Info) Description 11/09/2023 1:30 PM EDT Clinical Support Hematology [place] [address] Davey Reed, [facility] [place] [address] Malignant neoplasm of prostate Social History Tobacco [...] from your doctor or pharmacy? Never 11/04/2023 [facility] Utilities Answer Date Recorded In the past 12 months has [employer], gas, oil, or water [employer] threatened to shut off services in your [...] Reed, RD - 11/09/2023 1:[address] [facility] Initial Assessment Patient Name: Benny Zurita Diagnosis: [...] more shot to go) Typically lives in [place] November to June but will be here [...] Information Height 175.3 cm Weight 83.915 kg [place] Body Weight (IBW) (kg) 73.73 BMI (Calculated) 27.3 Estimated calorie needs 1850 at 25 kcals/Kg Estimated protein needs 96 grams/D Usual weight : 198 pounds to 200 pounds (Gains weight when down in [place]) 11/10/2023 Nutrition Diagnosis Problems Altered GI function;Involuntary [...] refer Benny to Nadege Howell RD at [facility] to re-evaluate. I have provided him with my card and contact information should he have any questions in the meantime. Thank you for this consult. DAVEY REED RD documented in this encounter Plan of Treatment Upcoming Encounters Date Type Department Care Team (Late Contact Info) Description 12/03/2023 8:00 AM EDT Office Visit Hematology/Oncology at [address] [phone] Antonio Brownlee MD [facility] [place] [address] Fani Haskins APRN [address] [place] [address] DR HEMATOLOGY AND ONCOLOGY [place], [place] [address] 12/03/2023 8:30 AM EDT Infusion Hematology Oncology at [address] [phone] 12/03/2023 9:00 AM EDT Clinical Support Hematology/Oncology at [address] [phone] [facility] DR HEMATOLOGY [place] [address] 12/17/2023 8:30 AM EDT Office Visit Hematology/Oncology at [address] [phone] Antonio Brownlee MD [facility] [place] [address] HEMATOLOGY AND ONCOLOGY [place], [place] [address] 12/17/2023 9:00 AM EDT Infusion Hematology Oncology at [address] [phone] 12/30/2023 9:00 AM EST Office Visit Hematology/Oncology at [address] [phone] Antonio Brownlee MD [facility] [place] [address] HEMATOLOGY AND ONCOLOGY [place], [place] [address] 12/30/2023 9:30 AM EST Infusion Hematology Oncology at [address] [phone] documented as of this encounter Visit Diagnoses Diagnosis Malignant neoplasm of prostate Malignant neoplasm of head of pancreas documented in this encounter Care Teams Bricklayer Tender Relationship Specialty Start Date End Date Jez Vance MD [address] [place] [address] PCP - General 01/07/10 documented as of this encounter
--- OUTSIDE RECORDS SUMMARY | 2023-12-03 01:11 | XMS_ITS | Encounter Summary ---
Author Organization [facility] Address [facility] [place] [address] Care Team Providers Care Casing Blower Name Role Phone Jez Vance MD Primary Care Provider +1 -[phone] Encounter Details Date Type Department Care Team (Late st Contact Info) Description 11/09/2023 Telephone Hematology/Oncology at [address] [phone] Kelly Buchanan Social History Tobacco [...] from your doctor or pharmacy? Never 11/04/2023 [facility] Utilities Answer Date Recorded In the past 12 months has [employer], gas, oil, or water [employer] threatened to shut off services in your [...] time in the past [address] [facility], were you homeless or living [...] his labs done 1-2 days prior at [facility]. Benny also confirmed that he knows the location for this appointment in [facility]. documented in this encounter Plan of Treatment Upcoming Encounters Date Type Department Care Team (Late st Contact Info) Description 12/03/2023 8:00 AM EDT Office Visit Hematology/Oncology at [address] [phone] Antonio Brownlee MD [facility] [place] [address] [address] HEMATOLOGY [place] [address] 12/03/2023 8:30 AM EDT Infusion Hematology Oncology at [address] [phone] 12/03/2023 9:00 AM EDT Clinical Support Hematology/Oncology at [address] [phone] [facility] HEMATOLOGY [place] [address] 12/17/2023 8:30 AM EDT Office Visit Hematology/Oncology at [address] [phone] Antonio Brownlee MD [facility] [place] [address] Fani Haskins [address] HEMATOLOGY [place] [address] 12/17/2023 9:00 AM EDT Infusion Hematology Oncology at [address] [phone] 12/30/2023 9:00 AM EST Office Visit Hematology/Oncology at [address] [phone] Antonio Brownlee MD [facility] [place] [address] Fani Haskins APRN [address] [place] [address] DR HEMATOLOGY [place] [address] 12/30/2023 9:30 AM EST Infusion Hematology Oncology at [address] [phone] documented as of this encounter Visit Diagnoses Not on filedocumented in this encounter Care Teams Casing Blower Relationship Specialty Start Date End Date Jez Vance MD [address] [place] [address] PCP - General 01/07/10 documented as of this encounter
--- OUTSIDE RECORDS SUMMARY | 2023-12-03 01:11 | XMS_ITS | Encounter Summary ---
Author Organization [facility] Address [facility] [place] [address] Care Team Providers Care Kiln Charger Name Role Phone Jez Vance MD Primary Care Provider +1 [phone] Encounter Details Date Type Department Care Team (Late st Contact Info) Description 12/02/2023 Orders Only Hematology [place] [address] Antonio Brownlee MD [facility] [place] [address] Social History Tobacco Use Types Packs/Day Years [...] Never 11/04/2023 [facility] Utilities Answer Date Recorded In the past [...] any time in the past 12 m [facility], were you homeless or living in [...] 8:00 AM EDT Office Visit Hematology/Oncology at [address] [phone] Antonio Brownlee MD [facility] [place] [address] HEMATOLOGY [place] [address] 12/03/2023 8:30 AM EDT Infusion Hematology Oncology at [address] [phone] 12/03/2023 9:00 AM EDT Clinical Support Hematology/Oncology at [address] [phone] [facility] [place] [address] 12/17/2023 8:30 AM EDT Office Visit Hematology/Oncology at [address] [phone] Antonio Brownlee MD [facility] [place] [address] Fani Haskins, [address] HEMATOLOGY AND ONCOLOGY [place], [place] [address] 12/17/2023 9:00 AM EDT Infusion Hematology Oncology at [address] [phone] 12/30/2023 9:00 AM EST Office Visit Hematology/Oncology at [address] [phone] Antonio Brownlee MD [facility] [place] [address] Fani Haskins [address] HEMATOLOGY AND ONCOLOGY [place], [place] [address] 12/30/2023 9:30 AM EST Infusion Hematology Oncology at [address] [phone] documented as of this encounter Visit Diagnoses Not on filedocumented in this encounter Care Teams Kiln Charger Relationship Specialty Start Date End Date Jez Vance MD [address] [place] [address] PCP - General 01/07/10 documented as of this encounter
--- OUTSIDE RECORDS SUMMARY | 2023-12-03 01:11 | XMS_ITS | Encounter Summary ---
Author Organization [facility] Address One [facility] [place] [address] Care Team Providers Care Building Rental Manager Name Role Phone Jez Vance MD Primary Care Provider [phone] Encounter Details Date Type Department Care Team [...] in the past [address] [facility], were you homeless or living in a [...] 8:00 AM EDT Office Visit Hematology/Oncology at [address] [phone] Antonio Brownlee MD [facility] [place] [address] Fani Haskins APRN [address] [place] [address] DR HEMATOLOGY AND ONCOLOGY [place], [place] [id number] 12/03/2023 8:30 AM EDT Infusion Hematology Oncology at [address] [phone] 12/03/2023 9:00 AM EDT Clinical Support Hematology/Oncology at [address] [phone] [facility] [place] [address] 12/17/2023 8:30 AM EDT Office Visit Hematology/Oncology at [address] [phone] Antonio Brownlee MD [facility] [place] [address] Fani Haskins [address] HEMATOLOGY AND ONCOLOGY [place], [place] [id number] 12/17/2023 9:00 AM EDT Infusion Hematology Oncology at [address] [phone] 12/30/2023 9:00 AM EST Office Visit Hematology/Oncology at [address] [phone] Antonio Brownlee MD [facility] [place] [address] F[address]askins [address] HEMATOLOGY AND ONCOLOGY [place], [place] [id number] 12/30/2023 9:30 AM EST Infusion Hematology Oncology at [address] [phone] documented as of this encounter Visit Diagnoses Not on filedocumented in this encounter Care Teams Building Rental Manager Relationship Specialty Start Date End Date Jez Vance MD [address] [place] [address] PCP - General 01/07/10 documented as of this encounter
--- OUTSIDE RECORDS SUMMARY | 2023-12-03 01:11 | XMS_ITS | Encounter Summary ---
Author Organization [facility] [place] [address] Care Team Providers Care Cloth Shader Name Role Phone Jez Vance MD Primary Care Provider [phone] Encounter Details Date Type Department Care Team (Late st Contact Info) Description 11/12/2023 9:29 AM EDT - 11/12/2023 11:14 AM EDT Surgery Out[place] [phone] Carmen Obrien MD [facility] [place] [address] [email or web address] ELED, WITH SQ PORT OR PUMP [...] from your doctor or pharmacy? Never 11/04/2023 [facility] Utilities Answer Date Recorded In the past [...] any time in the past 12 m [facility], were you homeless or living in a [...] closest emergency room or call the hospital die equipment operator at [phone] and ask for physician hr shared services consultant covering for your physician. Questions or problems after 5pm or on a weekend: Call the [facility] die equipment operator at and ask for the physician hr shared services consultant covering for your doctor. * Patient Instructions* [...] please call the surgery clinic nurses at [phone]. If you have any concerns at night or when the clinic is closed then please call the main [facility] number and ask to speak with the general surgery resident hr shared services consultant. That number is [phone]. Dr. Obrien will see you back after you finish the neoadjuvant therapy. documented in this encounter Medications at Time of Discharge Medication Sig Dispensed Refills Start Date End Date jilfwr-tqkddtug-oudtgnn ( 24) 24,000-76,000 -120,000 unit capsuleIndications:Malign ant [...] in the preoperative holding area at the [facility] He is here today with his -Scar. We discussed a plan to proceed with a laparoscopy to complete the staging workup and the Mediport placement to facilitate systemic chemotherapy with Dr. Brownlee. Informed consent was obtained. Shorty Obrien MD 11/12/2023 9:51 AM documented in this encounter Miscellaneous Notes * Op Note - Carmen Obrien MD - 11/12/2023 10:13 AM EDT [facility] Operative Note Patient Name: Benny Zurita : [id number] MR#: [id number] Case Date: 11/12/2023 Surgeon: Surgeons and Role: [...] 8:00 AM EDT Office Visit Hematology/Oncology at [address] [phone] Antonio Brownlee MD [facility] [place] [place] [address] Fani Haskins APRN [address] [place] [address] DR HEMATOLOGY AND ONCOLOGY [place], [place] [id number] 12/03/2023 8:30 AM EDT Infusion Hematology Oncology at [address] [phone] 12/03/2023 9:00 AM EDT Clinical Support Hematology/Oncology at [address] [phone] [facility] DR [place]AT[place] [address] 12/17/2023 8:30 AM EDT Office Visit Hematology/Oncology at [address] [phone] Antonio Brownlee MD [facility] [place] [address] Fani Haskins, [address] HEMATOLOGY AND ONCOLOGY [place], [place] [address] 12/17/2023 9:00 AM EDT Infusion Hematology Oncology at [address] [phone] 12/30/2023 9:00 AM EST Office Visit Hematology/Oncology at [address] [phone] Antonio Brownlee MD [facility] [place] [address] HEMATOLOGY AND ONCOLOGY [place], [place] [phone] 12/30/2023 9:30 AM EST Infusion Hematology Oncology at [address] [phone] documented as of this encounter Procedures Procedure Name Priority Date/Time Associated Diagnosis Comments XR CHEST ONE VIEW Routine 11/12/2023 11: 33 AM EDT EKG 12-LEAD STAT 11/12/2023 11:23 AM EDT Cardiac arrhythmia, unspecified cardiac arrhythmia type XR FLUORO NO RAD <1HR - OR USE Routine 11/12/2023 10:35 AM EDT Fluoroscopy Exam Up To [facility] H[facility] ([id number]) Yes 11/12/2023 9:38 AM EDT PANCREAS CANCER Insert Tunneled CV Cath w SubQ Port, Age 5 Yrs or Older ([id number]) Yes 11/12/2023 9:38 AM EDT PANCREAS CANCER Lap, Diagnostic Abdomen ([id number]) Yes 11/12/2023 9:38 AM EDT PANCREAS CANCER documented in this encounter Results * XR Chest One View (11/12/2023 11:33 AM EDT) WORKSTATION ID [id number] RAD Anatomical Region Laterality Modality Chest N/A [...] have questions please contact the health career development consultant that requested your imaging first. ? Narrative [...] who have questions please contactthe health career development consultant that requested your imaging first. Carmen Obrien MD IMG DX ORDERABLES * EKG 12 Lead (11/12/2023 11:23 AM EDT) Ventricular rate 55 BPM MUSE SYSTEM Atrial Rate 55 BPM MUSE SYSTEM P-R Interval 150 ms MUSE SYSTEM QRS Duration 108 ms MUSE SYSTEM Q-T Interval 496 ms MUSE SYSTEM QTC Calculated (Bezet) 474 ms MUSE SYSTEM Calculated P [place] 49 degrees MUSE SYSTEM Calculated R [place] -55 degrees MUSE SYSTEM Calculated T [place] 8 degrees MUSE SYSTEM INTERPRETATION Sinus bradycardia [...] (New Bag - Prov ider: Anjum Saul, STRATEGIC PLANNING SPECIALIST) PRN Medication Order 11/10/2023 11/11/2023 11/12/2023 BUPivacaine [...] Comment: 1000 units mixed with 100ml of dm8017 units mixed with 10ml of ns) documented in this encounter Care Teams Cloth Shader Relationship Specialty Start Date End Date Jez Vance MD [address] [place] [address] PCP - General 01/07/10 documented as of this encounter
--- OUTSIDE RECORDS SUMMARY | 2023-12-03 01:11 | XMS_ITS | Encounter Summary ---
Author Organization [facility] Address [facility] [place] [address] Care Team Providers Care Branch Specialist Name Role Phone Jez Vance MD Primary Care Provider [phone] Encounter Details Date Type Department Care Team (Latest Contact Info) Description 11/19/2023 10:30 AM EDT Clinical Support Hematology/Oncology at [address] [phone] Nadege Howell, RD [facility] DR [place] [address] Malignant neoplasm of head of pancreas Social [...] from your doctor or pharmacy? Never 11/04/2023 [facility] Utilities Answer Date Recorded In [...] any time in the past 12 m [facility], were you homeless or living in [...] as of this encounter Progress Notes * Nadege Howell, RD - 11/19/2023 10:30 AM EDT Nutrition Note Spoke with Benny in treatment today. 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 Patient was started on Creon 24 on 11/08, about 1.5 weeks ago. He is taking 2 per meal and one per snack. Since then, BM's have become darker. He has not had post-prandial discomfort but was noted to have a little more gas than usual on 11/08.Did not discuss this today. Other complaints that indicated possible LINDSAY were weight loss despite increased kcal intake and frequent stools. Overall, he felt better after ERCP and stent placement on 10/24. Wt Readings from Last 10 Encounters: 11/19/23 84.1 kg (185 lb 6.4 oz) 11/12/23 83.5 kg (184 lb) 11/09/23 83.9 kg (185 lb) 10/25/23 83.9 kg (185 lb) 10/24/23 84.8 kg (186 lb 15.2 oz) 07/22/23 90.6 kg (199 lb 12.8 oz) 12/04/22 87.2 kg (192 lb 3.2 oz) 11/20/22 89.4 kg (197 lb) 11/13/22 89 kg (196 lb 3.2 oz) 11/06/22 89.3 kg (196 lb 12.8 oz) BMI 26.6 UBW: 198# Weight stable for past month 10/23-11/18 14# loss in four months 07/21-11/18 (7.0% body weight) - not significant Diet History: Breakfast - bowl of cereal with whole milk Lunch - chicken sandwich, oatmeal raisin cookies Dinner: Chicken thighs, mixed vegetable stir grider and rice Drinks: I should drink more, Ensure Plus - might have in afternoon, juice, water, coffee Snacking less because he doesn't want to run out of Creon too soon. Creon 24: 2 per meal, 1 per snack started on on 11/08 Social History: Lives in [place], [place]. 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 - Scar PMH: Prostate cancer (treated with RT and ADT), HTN, HLD and asthma Medications: Compazine prn, Creon 24 (2 per meal and 1 per snack), Flomax, Simvastatin, Losartan, Singular, Ibuprofen Labs on 11/18: Na 138, K 3.7, Alb 3.7, AlkPhos 99, AST 16, ALT 24 Nutrition Problem: Altered GI function related to LINDSAY in setting of pancreatic cancer as evidenced by light colored stools, gas, difficulty re-gaining weight. Recommendations: Continue Creon 24: 2 per meal and 1 per snack. Weight stable for past month. BM's have become darker. Did not assess reports of gas today. Suggested adding one snack per day, which could be an Ensure since he is interested in adding this in daily. Would need to take one Creon with this. Provided 28 sample capsules of Creon 24 today. Outof pocket cost is high ($400 for 20 day supply) but he is not interested in applying for financial assistance as he has new insurance starting in February which should provide better coverage of Creon. Will f/u when patient returns to clinic. documented in this encounter Plan of Treatment Upcoming Encounters Date Type Department Care Team (Late st Contact Info) Description 12/03/2023 8:00 AM EDT Office Visit Hematology/Oncology at [address] [phone] Antonio Brownlee MD [facility] [place] [address] Fani Haskins APRN [address] [place] [address] DR HEMATOLOGY [place] [address] 12/03/2023 8:30 AM EDT Infusion Hematology Oncology at [address] [phone] 12/03/2023 9:00 AM EDT Clinical Support Hematology/Oncology at [address] [phone] [facility] HEMATOLOGY [place] [address] 12/17/2023 8:30 AM EDT Office Visit Hematology/Oncology at [address] [phone] Antonio Brownlee MD [facility] [place] [address] HEMATOLOGY AND ONCOLOGY [place], [place] [address] 12/17/2023 9:00 AM EDT Infusion Hematology Oncology at [address] [phone] 12/30/2023 9:00 AM EST Office Visit Hematology/Oncology at [address] [phone] Antonio Brownlee MD [facility] [place] [address] Fani Haskins, [address] HEMATOLOGY [place] [address] 12/30/2023 9:30 AM EST Infusion Hematology Oncology at [address] [phone] documented as of this encounter Visit Diagnoses Diagnosis 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
--- OUTSIDE RECORDS SUMMARY | 2023-12-03 01:11 | XMS_ITS ---
Author Organization [facility] Address One [facility] [place] [address] Care Team Providers Care General Production Manager Name Role Phone Jez Vance MD Primary Care Provider [phone] [phone] Active Problems Problem Noted Date Diagnosed Date Malignant neoplasm of head of pancreas Hypokalemia 10/24/2023 Painless jaundice 10/23/2023 Malignant neoplasm of prostate 07/31/2022 Cancer Staging:Clinical:Stage IIC(cT1c, cN0, cM0, PSA: 11.9, Grade Group: 4) - Signed by Toro Hayes MD on 07/31/2022 Current Oncology Plans [facility] AMB ONC GI PANCREATIC CANCER - MODIFIED [...] Infusion: Pump Disconnect Leuprolide (Lupron Depot) injection ([facility], [facility], [facility], [facility], [facility])* Plan Start Date:12/04/2022 Plan Provider:Toro Hayes MD Linked Problems Malignant neoplasm of prosta te Treatment Medications No medications scheduled. Leuprolide (Lupron Depot) Injection ([facility], [facility], [facility], [facility], [facility]) Adult* Plan Start Date:11/26/2023 Plan Provider:Adrienne Singh PA Linked Problems Malignant neoplasm of prosta te Treatment Medications No medications scheduled. Past Plans Therapy Plan 1 Plan Name Start Date Discontinue Date Treatment Medications Discontinue Reason Plan Provider Leuprolide (Lupron Depot) Injection ([facility], [facility], [facility], [facility]) 7.5 mg Every Month 08/13/2022 11/06/2022 No medications scheduled. Patient Preference Toro Hayes MD Radiation Treatments * No radiation treatments are documented for this patient in Psychiatric. Treatments may have been administered in another system.
--- OUTSIDE RECORDS SUMMARY | 2023-12-03 01:11 | XMS_ITS | Encounter Summary ---
Author Organization [facility] Address [facility] [place] [address] Care Team Providers Care Auto Air Conditioning Mechanic Name Role Phone Jez Vance MD Primary Care Provider [phone] Encounter Details Date Type Department Care Team (Late st Contact Info) Description 11/12/2023 7:40 AM EDT - 11/12/2023 12:00 PM EDT Hospital Encounter [place] [phone] Carmen Obrien MD [facility] [place] [address] Cardiac arrhythmia, unspecified cardiac arrhythmia type Discharge [...] in a mcc (including now)? No 11/04/2023 IPV Inpatient Questions [...] closest emergency room or call the hospital unit operator at [phone] and ask for physician operator catalyst concentration covering for your physician. Questions or problems after 5pm or on a weekend: Call the [facility] unit operator at and ask for the physician operator catalyst concentration covering for your doctor. * Patient Instructions* [...] please call the surgery clinic nurses at [phone]. If you have any concerns at night or when the clinic is closed then please call the main [facility] number and ask to speak with the general surgery resident operator catalyst concentration. That number is [phone]. Dr. Obrien will see you back after you finish the neoadjuvant therapy. documented in this encounter Medications at Time of Discharge Medication Sig Dispensed Refills Start Date End Date eimdqq-akunddbt-kkstbiv (Cre 24) 24,000-76,000 -120,000 unit capsuleIndications:Malign ant [...] in the preoperative holding area at the [facility]. He is here today with his -Scar. We discussed a plan to proceed with a laparoscopy to complete the staging workup and the Mediport placement to facilitate systemic chemotherapy with Dr. Brownlee. Informed consent was obtained. Shorty Obrien MD 11/12/2023 9:51 AM documented in this encounter Miscellaneous Notes * Op Note - Carmen Obrien MD - 11/12/2023 10:13 AM EDT [facility] [place] Note Patient Name: Benny Zurita : [id number] MR#: [id number] Case Date: 11/12/2023 Surgeon: Surgeons and Role: [...] AM EDT Office Visit Hematology/Oncology at [address] [phone] Antonio Brownlee MD [facility] [place] [address] Fani Haskins APRN [address] [place] [address] DR HEMATOLOGY AND ONCOLOGY [place], [place] [address] 12/03/2023 8:30 AM EDT Infusion Hematology Oncology at [address] [phone] 12/03/2023 9:00 AM EDT Clinical Support Hematology/Oncology at [address] [phone] [facility] HEMATOLOGY [place] [address] 12/17/2023 8:30 AM EDT Office Visit Hematology/Oncology at [address] [phone] Antonio Brownlee MD [facility] [place] [address] HEMATOLOGY AND ONCOLOGY [place], [place] [phone] 12/17/2023 9:00 AM EDT Infusion Hematology Oncology at [address] [phone] 12/30/2023 9:00 AM EST Office Visit Hematology/Oncology at [address] [phone] Antonio Brownlee MD [facility] [place] [address] [address] HEMATOLOGY AND ONCOLOGY [place], [place] [phone] 12/30/2023 9:30 AM EST Infusion Hematology Oncology at [address] [phone] documented as of this encounter Procedures Procedure Name Priority Date/Time Associated Diagnosis Comments XR CHEST ONE VIEW Routine 11/12/2023 11: 33 AM EDT EKG 12-LEAD STAT 11/12/2023 11:23 AM EDT Cardiac arrhythmia, unspecified cardiac arrhythmia type XR FLUORO NO RAD <1HR - OR USE Routine 11/12/2023 10:35 AM EDT Fluoroscopy Exam Up To [facility] ([id number]) Yes 11/12/2023 9:38 AM EDT PANCREAS CANCER Insert Tunneled CV Cath w SubQ Port, Age 5 Yrs or Older ([id number]) Yes 11/12/2023 9:38 AM EDT PANCREAS CANCER Lap, Diagnostic Abdomen ([id number]) Yes 11/12/2023 9:38 AM EDT PANCREAS CANCER documented in this encounter Results * XR Chest One View (11/12/2023 11:33 AM EDT) WORKSTATION ID [id number] RAD Anatomical Region Laterality Modality Chest N/A [...] have questions please contact the health career services officer that requested your imaging first. ? Narrative [...] who have questions please contactthe health career services officer that requested your imaging first. Carmen Obrien MD IMG DX ORDERABLES * EKG 12 Lead (11/12/2023 11:23 AM EDT) Ventricular rate 55 BPM MUSE SYSTEM Atrial Rate 55 BPM MUSE SYSTEM P-R Interval 150 ms MUSE SYSTEM QRS Duration 108 ms MUSE SYSTEM Q-T Interval 496 ms MUSE SYSTEM QTC Calculated (Bezet) 474 ms MUSE SYSTEM Calculated P [place] 49 degrees MUSE SYSTEM Calculated R [place] -55 degrees MUSE SYSTEM Calculated T [place] 8 degrees MUSE SYSTEM INTERPRETATION Sinus bradycardia [...] unspecified cardiac arrhythmia type Malignant neoplasm of head of pancreas documented in this encounter Active and Recently [...] (New Bag - Prov ider: Anjum Saul, PRINT PRODUCER) PRN Medication Order 11/10/2023 11/11/2023 11/12/2023 BUPivacaine [...] Comment: 1000 units mixed with 100ml of ja1254 units mixed with 10ml of ns) documented in this encounter Care Teams Auto Air Conditioning Mechanic Relationship Specialty Start Date End Date Jez Vance MD [address] [place] [address] PCP - General 01/07/10 documented as of this encounter
--- OUTSIDE RECORDS SUMMARY | 2023-12-03 01:11 | XMS_ITS | Encounter Summary ---
Author Organization [facility] Address [facility] [place] [address] Care Team Providers Care Recruitment Director Name Role Phone Jez Vance MD Primary Care Provider +1 [phone] Encounter Details Date Type Department Care Team (Latest Contact Info) Description 11/30/2023 2:30 PM EDT TH Visit (TeleHealth) Radiation Oncology at [address] [phone] Adrienne Singh PA [facility] DR HEMATOLOGY [place] [address] Malignant neoplasm of prostate (Primary Dx); Androgen [...] doctor or pharmacy? Never 11/04/2023 [facility] Utilities Answer Date Recorded In the [...] any time in the past 12 m [facility], were you homeless or living in a [...] as of this encounter Progress Notes * Adrienne Singh PA - 11/30/2023 2:30 PM EDT [facility] [place] [address] TELEHEALTH FOLLOW-UP: Patient: Benny Zurita : 1940 PCP: Jez Vance MD ([place]); Troy Arce MD ([place], [place]; [phone]) Urologist: Gordo Kaplan MD ([facility] [place], [place]) Radiation Oncologist: Toro Hayes MD (Consult Date: 08/06/22) Chief Complaint: Follow-up for high-risk prostate cancer (Stage IIC: cT1c, cN0, cM0; [place] 4+4, PSA 11.9) HPI: Date of Diagnosis [...] appointment) Interval Symptoms Since Last Visit on 07/22/23: 10/22-01/08: IP at [facility] for hypokalemia, mild normocytic anemia (HGB 13.1) and obstructive jaundice. Found to have a pancreatic head mass c/f malignant obstruction. Underwent EUS and ERCP with stent placement, pathology positive for adenocarcinoma. 11/09/23: seen by General Surgery with plan for chemotherapy x 4 months, minimally-invasive robotic Whipple, and then 2 months of post-operative chemotherapy. 11/19/23: Started FOLFOX with Dr. Brownlee. General: Not going to [place] this winter since he is being treated for new pancreatic cancer. 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 Usually has some fatigue shortly after each Lupron dose. Currently has some fatigue 2/2 chemo. Weight/Appetite/Diet: Lost 15 lbs 2/2 pancreatic cancer and chemo, but appetite has improved this week. Respiratory: Denies SOB or cough. Cardiovascular: Denies chest pain, palpitations, calf pain/swelling, or other peripheral edema. GI: Last colonoscopy was 10 years ago, has aged our of further screening. Reports softer stools since RT. Some nausea 2/2 chemo. Whipple is planned for 03/2024. Denies vomiting, diarrhea, constipation, melena, or hematochezia. : No acute concerns. Continues to have nocturia x 3, but states this is because he is a poor sleeper,and decides to urinate while he is already awake. On nights he sleeps well, he only wakes up once to urinate. During the day he usually urinates [...] years, quit in late 1960s. Alcohol Use: None currently. Social Support: . IPSS and MARCIA (patient entered, provider reviewed), last 5 values: Prostate IPSS and MARCIA(Pt Entered): last 5 values 08/06/2022 8:27 AM 07/15/2023 10:15 AM 07/15/2023 10:17 AM Prostate Today's Scores Sexual Health Inventory for Men 23 5 (Severe ED) 2 (Severe ED) International Prostate Symptom Score 12 (Moderate LUTS) 7 ( Mild LUTS) Allergies: Allergies Allergen Reactions Capecitabine Other (See Comments) Intermediate metabolizer. See pharmacist note from 11/17/2023 for dosing recommendations. Fluorouracil Other (See Comments) Intermediate metabolizer. See pharmacist note from 11/17/2023 for dosing recommendations. Tegafur Other (See Comments) Intermediate metabolizer. See pharmacist note from 11/17/2023 for dosing recommendations. Current Medications: Current Outpatient Medications on File Prior to Visit Medication Sig Dispense Refill hafqct-ihspdack-pjkjlcq (Creon 24) 24,000-76,000 -120,[address] capsule Take 2 po with meals and 1 po with snacks (3 snacks), 9 per day 270 capsule 11 tamsulosin (Flomax) 0.4 mg capsule Take 1 capsule by mouth daily. 90 tablet 3 simvastatin (Zocor) 10 mg tablet Take 20 mg by mouth daily. losartan potassium (COZAAR ORAL) Take 50 mg by mouth nightly. montelukast (SINGULAIR) 10 mg tablet Take 5 mg by mouth nightly. ibuprofen (ADVIL;MOTRIN) 600 mg tablet Take 600 mg by mouth every 8 hours as needed for Pain. prochlorperazine (Compazine) 10 mg tablet Take 1 tablet by mouth every 6 hours as needed for Nausea. (Patient not taking: Reported on 11/30/2023) 30 tablet 3 No current facility-administered medications on file prior [...] confined to bed or chair Physical Examination: (No vitals obtained as this is a telephone appointment.) Constitutional: conversant. Respiratory: non-labored respirations with speaking. Neurologic: alert and oriented x 3. Speech clear and coherent. Psychiatric: mood is euthymic. Insight and judgement are good. Labs Reviewed This Visit: Date PSA Testosterone (250-827) Notes 09/04/20 4.7 07/22/21 6.32 03/31/22 11.892 08/13/22 Started ADT 11/30/22 Completed RT 02/12/23 < 0.008 07/01/23 < 0.02 11 CBC and CMP WNL 11/17/23 < 0.02 < 10 HGB 12.9, LFT WNL Imaging Reviewed This Visit: DXA (08/20/23): IMPRESSION Normal. FRAX ten-year fracture risk: Major osteoporotic fracture: 6.2%. Hip fracture: 1.9%. Assessment & Plan: #Prostate cancer: - Labs reviewed from 11/17/23: CBC and CMP unremarkable. PSA and Testosterone undetectable as expected while on ADT. - No concerning reported symptoms. - Patient is willing to proceed with this week's dose of ADT, Lupron 22.5 mg ordered to be given inclinic on 12/03/23 (patient will already be in the office for his next chemotherapy infusion for his pancreatic cancer). This dose completes his planned course of ADT (18 months planned; 19 months oftotal coverage). - Next PSA, Testosterone, and H&P due in 4-6 months. #Effects of EBRT: - Completed definitive RT [...] DXA not done prior to start of ADT. DXA on 08/20/23 WNL. Patient already takes OTC Vitamin D/Calcium supplement. - Sleep: recommend 7-8 hours per night. - Sunscreen: encourage SPF 30 or higher, and wearing protective clothing/hats while outside. - Follow with PCP on regular basis for: annual exam/health maintenance, immunizations, and cancer screenings (colonoscopy, lung cancer screening if appliable, etc). #Resources provided: none #Referrals placed: none Follow-Up: Next visit (Telehealth): 4-6 months Labs ([facility]): PSA, Testosterone Benny Zurita had the opportunity to ask [...] AM EDT Office Visit Hematology/Oncology at [address] [phone] Antonio Brownlee MD [facility] [place] [address] Fani Haskins [address] HEMATOLOGY [place] [address] 12/03/2023 8:30 AM EDT Infusion Hematology Oncology at [address] [phone] 12/03/2023 9:00 AM EDT Clinical Support Hematology/Oncology at [address] [phone] [facility] DR HEMATOLOGY [place] [address] 12/17/2023 8:30 AM EDT Office Visit Hematology/Oncology at [address] [phone] Antonio Brownlee MD [facility] [place] [place] [address] [address] HEMATOLOGY [place] [address] 12/17/2023 9:00 AM EDT Infusion Hematology Oncology at [address] [phone] 12/30/2023 9:00 AM EST Office Visit Hematology/Oncology at [address] [phone] Antonio Brownlee MD [facility] [place] [address] HEMATOLOGY [place] [address] 12/30/2023 9:30 AM EST Infusion Hematology Oncology at [address] [phone] Scheduled Orders Name Type Priority Associated Diagnoses Orde r Schedule PSA (Ultrasensitive) Lab Routine Malignant neoplasm of prostate Expected: 03/19/2024 (Approximate), Expires: 09/18/2024 Testosterone, total Lab Routine Malignant neoplasm of prostate Expected: 03/19/2024 (Approximate), Expires: 09/18/2024 documented as of this encounter Visit Diagnoses Diagnosis Malignant neoplasm of prostate- Primary Androgen deprivation therapy Encounter for therapeutic drug monitoring S/P radiotherapy Convalescence following radiotherapy Malignant neoplasm of head of pancreas documented in this encounter Care Teams Recruitment Director Relationship Specialty Start Date End Date Jez Vance MD [address] [place] [address] PCP - General 01/07/10 documented as of this encounter
--- OUTSIDE RECORDS SUMMARY | 2023-12-03 01:11 | XMS_ITS | Encounter Summary ---
Author Organization [facility] Address [facility] [place] [address] Care Team Providers Care Hardwood Floor Installer Name Role Phone Jez Vance MD Primary Care Provider [phone] [phone] Encounter Details Date Type Department Care Team (Late st Contact Info) Description 11/24/2023 Telephone Hematology/Oncology at [address] [phone] Marbella Hermosillo, CARISSA Social History Tobacco Use Types Packs/Day [...] from your doctor or pharmacy? Never 11/04/2023 [facility] Utilities Answer Date Recorded In the past 12 months has [employer], gas, oil, or water [employer] threatened to shut off services in your [...] any time in the past 12 m [facility], were you homeless or living in a senior care (including now)? No 11/04/2023 IPV Inpatient Questions [...] encounter Miscellaneous Notes * Telephone Encounter - Marbella Hermosillo RN - 11/24/2023 2:09 PM EDT Consulted with Fani Haskins, SCALE MANAGER, pt ok to have Lupron same day as Folfox on 12/02. Call to Angeal to let her know, she was thankful for the call. * Telephone Encounter - Marbella Hermosillo RN - 11/24/2023 2:05 PM EDT ----- Message from Kelly B sent at 11/24/2023 10:51 AM EDT ----- Benny and , Angela, called in to see if they could do his Lupron on 12/02 along with his Folirinox. Then they can do a my- video from home on 11/29 and save themselves a trip. I wasn't sure of any contraindications with the two medications on the same day, so wanted to double check first. documented in this encounter Plan of Treatment Upcoming Encounters Date Type Department Care Team (Late st Contact Info) Description 12/03/2023 8:00 AM EDT Office Visit Hematology/Oncology at [address] [phone] Antonio Brownlee MD [facility] [place] [address] Fani Haskins SCALE MANAGER [address] [place] [address] DR HEMATOLOGY [place] [address] 12/03/2023 8:30 AM EDT Infusion Hematology Oncology at [address] [phone] 12/03/2023 9:00 AM EDT Clinical Support Hematology/Oncology at [address] [phone] [facility] [place] [address] 12/17/2023 8:30 AM EDT Office Visit Hematology/Oncology at [address] [phone] Antonio Brownlee MD [facility] [place] [address] HEMATOLOGY AND ONCOLOGY [place], [place] [address] 12/17/2023 9:00 AM EDT Infusion Hematology Oncology at [address] [phone] 12/30/2023 9:00 AM EST Office Visit Hematology/Oncology at [address] [phone] Antonio Brownlee MD [facility] [address] HEMATOLOGY AND ONCOLOGY [place], [place] [address] 12/30/2023 9:30 AM EST Infusion Hematology Oncology at [address] [phone] documented as of this encounter Visit Diagnoses Not on filedocumented in this encounter Care Teams Hardwood Floor Installer Relationship Specialty Start Date End Date Jez Vance MD [address] [place] [address] PCP - General 01/07/10 documented as of this encounter
--- OUTSIDE RECORDS SUMMARY | 2023-12-03 01:11 | XMS_ITS | Encounter Summary ---
Author Organization [facility] [place] [address] Care Team Providers Care Garnetter Name Role Phone Jez Vance MD Primary Care Provider +1 [phone] Encounter Details Date Type Department Care Team (Late st Contact Info) Description 11/12/2023 9:38 AM EDT Anesthesia Event [facility] [phone] Lore Maxwell MD [facility] [place] [address] Anjum Saul CRNA [facility] [place] [address] Anesthesia Record Procedure Summary Procedure Name Responsible [...] Time: 1105 11/12/23 0943 by Anjum Saul AQUATIC LABORER 11/12/23 1105 by Anjum Saul CRNA documented [...] from your doctor or pharmacy? Never 11/04/2023 [facility] Utilities Answer Date Recorded In the [...] any time in the past 12 m [facility], were you homeless or [...] Procedure Summary Date: 11/12/23 Room / Location: [facility] OR [address] [place] [address] OSC Anesthesia Start: 937 Anesthesia Stop: 1105 Procedures: LAPAROSCOPY, DIAGNOSTIC, ABDOMEN (WRVU 5.14) (Abdomen) YUNG\NGUYEN.CATHETER,TUNNELED, WITH SQ PORT OR PUMP OVER 5YR (WRVU 5.79) (Chest) FLUOROSCOPY (WRVU 0.3) Diagnosis: (PANCREAS CANCER) Surgeons: Carmen Obrien MD Responsible Provider: Lore Maxwell MD Anesthesia Type: general ASA Status: 3 All Anesthesia Providers: Anesthesiologist: Lore Maxwell MD AQUATIC LABORER: Anjum Saul CRNA Vitals Value Taken Time BP 156/64 11/12/23 1115 Temp 36.2 ??C (97.2 ??F) 11/12/23 1106 Pulse 58 11/12/23 1119 Resp 16 11/12/23 1106 SpO2 100 % 11/12/23 1119 Pain Level 0 11/12/23 1106 Vitals shown include unfiled device data. Patient Location: PACU/[facility] Level of Consciousness: Awake and Alert Pain [...] looks like bigeminy pattern. P waves present. VA interval not prolonged. Patient sleeping comfortably, asymptomatic. [...] 3.47) performed by Andrew Reynoso MD at [facility] ??? PRO ERCP BALLOON DILATATION BILIARY/PANCREATIC DUCT OR AMPULLA EA DUCT 10/25/2023 ERCP, W BALLOON DILATION OF BILIARY/PANCREATIC DUCT (WRVU 6.9) performed by Andrew Reynoso MD at [facility] ??? PRO ERCP STENT PLACEMENT BILIARY OR PANCREATIC DUCT 10/25/2023 ERCP, W PLCMNT ENDOSCOPIC STENT BILIARY OR PANCREATIC DUCT (WRVU 8.48) performed by Andrew Reynoso MD at [facility] ??? PRO ERCP, SPHINCTEROTOMY 10/25/2023 ERCP W/SPHINCTEROTOMY/PAPILLOTOMY (WRVU 6.5) performed by Andrew Reynoso MD at [facility] ??? PRO ERCP,DIAGNOSTIC N/A 10/25/2023 ERCP (WRVU 5.85) performed by Andrew Reynoso MD at [facility] ??? PRO [facility]I ENDOSCOPY W/US FN BX 10/25/2023 EGD, W US GUIDED FINE NEEDLE ASPIRATION/BIOPSY (WRVU 4.16) performed by Andrew Reynoso MD at [facility] ??? PROSTATE BIOPSY ??? ROTATOR [...] risks discussed with patient. Plan discussed with AQUATIC LABORER. Anesthesia Screening documented in this encounter Plan of Treatment Upcoming Encounters Date Type Department Care Team (Late st Contact Info) Description 12/03/2023 8:00 AM EDT Office Visit Hematology/Oncology at [address] [phone] Antonio Brownlee MD [facility] [address] [place] [address] 12/03/2023 8:30 AM EDT Infusion Hematology Oncology at [address] [phone] 12/03/2023 9:00 AM EDT Clinical Support Hematology/Oncology at [address] [phone] [facility] HEMATOLOGY [place] [address] 12/17/2023 8:30 AM EDT Office Visit Hematology/Oncology at [address] [phone] Antonio Brownlee MD [facility] [place] [address] HEMATOLOGY AND ONCOLOGY [place], [place] [phone] 12/17/2023 9:00 AM EDT Infusion Hematology Oncology at [address] [phone] 12/30/2023 9:00 AM EST Office Visit Hematology/Oncology at [address] [phone] Antonio Brownlee MD [facility] [place] [address] HEMATOLOGY AND ONCOLOGY [place], [place] [address] 12/30/2023 9:30 AM EST Infusion Hematology Oncology at [address] [phone] documented as of this encounter Visit Diagnoses [...] mg documented in this encounter Care Teams Garnetter Relationship Specialty Start Date End Date Jez Vance MD [address] [place] [address] PCP - General 01/07/10 documented as of this encounter
--- OUTSIDE RECORDS SUMMARY | 2023-12-03 01:11 | XMS_ITS | Encounter Summary ---
Author Organization [facility] Address [facility] [address] Care Team Providers Care Shoe Repair Cobbler Name Role Phone Jez Vance MD Primary Care Provider [phone] [phone] Reason for Visit * Reason Onset Date Comments Other 11/22/2023 Check in after f irst chemo- FOLFIRINOX Encounter Details Date Type Department Care Team (Late st Contact Info) Description 11/22/2023 Telephone Hematology/Oncology at [address] [phone] Emelia Obregon RN Other (Check in after first chemo- FOLFIRINOX) Social History Tobacco Use Types Packs/Day Years [...] from your doctor or pharmacy? Never 11/04/2023 [facility] Utilities Answer Date Recorded In the [...] encounter Miscellaneous Notes * Telephone Encounter - Emelia Obregon RN - 11/22/2023 9:19 AM EDT Post chemo call Placed call to patient to assess tolerance of first time chemotherapy treatment. Regimen received: FOLFIRINOX Date of treatment: 11/18 with [facility] disconnect Assessment: Symptom Present (yes[y]/no[n]/ stable[s] from baseline) Additional information/Assessment GI Nausea n Vomiting n Nausea medication - has compazine but has not needed Tolerating diet y Maintaining fluid intake (indicate volume) y Bowel movements regular y mild constipation over the weekend, BM this morning. Diarrhea n Mouth sores n General Pain (0 none - 10 high) 0 Using pain medications n Fever n Neuro Level of fatigue (0 - 5) 0 Falls n Numbness/tingling in arms/legs y Maybe some cold sensative neuropathy Cognitive changes n Skin Skin changes n Pinpoint red dots n Other s/s of bleeding n IV site/VAD problems n Discussed no special precautions for showering now that needle is out Musculoskeletal Joint swelling or tenderness n Arthralgias or myalgias n Voiding problems y did have some difficulty one night emptying his bladder which is not an issue that he normally has, eventually he was able to void after multiple attempts. Color and quality of urine s Cardio-pulmonary Shortness of breath n Chest pain n Swelling in legs n Calf pain or tenderness n Cough (productive/non-productive) n Psychosocial Coping s Coping well Need prescription renewals n Other issues : none Education provided: noted above Plan: Reinforced to patient/care-security engineer to call facility 07/09 with any new/worsening signs and symptoms orconcerns or questions. Phone number provided. Pt verbalized understanding and is in agreement with plan. documented in this encounter Plan of Treatment Upcoming Encounters Date Type Department Care Team (Late st Contact Info) Description 12/03/2023 8:00 AM EDT Office Visit Hematology/Oncology at [address] [phone] Antonio Brownlee MD [facility] [place] [address] Fani Haskins APRN [address] [place] [address] DR HEMATOLOGY AND ONCOLOGY [place], [place] [address] 12/03/2023 8:30 AM EDT Infusion Hematology Oncology at [address] [phone] 12/03/2023 9:00 AM EDT Clinical Support Hematology/Oncology at [address] [phone] [facility] DR HEMAT[place]Y [place] [address] 12/17/2023 8:30 AM EDT Office Visit Hematology/Oncology at [address] [phone] Antonio Brownlee MD [facility] [place] [address] [address] HEMATOLOGY AND ONCOLOGY [place], [place] [phone] 12/17/2023 9:00 AM EDT Infusion Hematology Oncology at [address] [phone] 12/30/2023 9:00 AM EST Office Visit Hematology/Oncology at [address] [phone] Antonio Brownlee MD [facility] [place] [address] F[address] H[address]ins [address] HEMATOLOGY AND ONCOLOGY [place], [place] [address] 12/30/2023 9:30 AM EST Infusion Hematology Oncology at [address] [phone] documented as of this encounter Visit Diagnoses Not on filedocumented in this encounter Care Teams Shoe Repair Cobbler Relationship Specialty Start Date End Date Jez Vance MD [address] [place] [address] PCP - General 01/07/10 documented as of this encounter
--- OUTSIDE RECORDS SUMMARY | 2023-12-03 01:11 | XMS_ITS | Encounter Summary ---
Author Organization [facility] Address [facility] [place] [address] Care Team Providers Care Child Adolescent Psychiatrist Name Role Phone Jez Vance MD Primary Care Provider [phone] [phone] Reason for Visit * Treatment/Therapy Plan Authorization (Routine) - Authorized Specialty Diagnoses / Procedures Referred By Deena yao Referred To Contact Diagnoses Malignant neoplasm of head of pancreas Procedures INFUSION Antonio Brownlee MD [facility] [place] [address] Stj Hem Onc Infusion [address] [place] [phone] Referral ID Status Reason Start Date Expiration Date V isits Requested Visits Authorized [id number] Authorized 11/09/2023 11/08/2024 1 99 Encounter Details Date Type Department Care Team (Late st Contact Info) Description 12/03/2023 8:30 AM EDT Infusion Hematology Oncology at [address] [phone] Social History Tobacco Use Types Packs/Day Years [...] from your doctor or pharmacy? Never 11/04/2023 [facility] Utilities Answer Date Recorded In the [...] living in a custodial (including now)? No 11/04/2023 IPV Inpatient Questions [...] 8:00 AM EDT Office Visit Hematology/Oncology at [address] [phone] Antonio Brownlee MD [facility] [place] [address] [address] HEMATOLOGY AND ONCOLOGY [place], [place] [phone] 12/03/2023 9:00 AM EDT Clinical Support Hematology/Oncology at [address] [phone] [facility] DR [place] [address] 12/17/2023 8:30 AM EDT Office Visit Hematology/Oncology at [address] [phone] Antonio Brownlee MD [facility] [place] [address] HEMATOLOGY AND ONCOLOGY [place], [place] [address] 12/17/2023 9:00 AM EDT Infusion Hematology Oncology at [address] [phone] 12/30/2023 9:00 AM EST Office Visit Hematology/Oncology at [address] [phone] Antonio Brownlee MD [facility] [place] [address] Fani Haskins APRN [address] [place] [address] DR HEMATOLOGY AND ONCOLOGY [place], [place] [phone] 12/30/2023 9:30 AM EST Infusion Hematology Oncology at [address] [phone] documented as of this encounter Visit Diagnoses Not on filedocumented in this encounter Care Teams Child Adolescent Psychiatrist Relationship Specialty Start Date End Date Jez Vance MD [address] [place], [place] [phone] PCP - General 01/07/10 documented as of this encounter
--- OUTSIDE RECORDS SUMMARY | 2023-12-03 01:11 | XMS_ITS | Encounter Summary ---
Author Organization [facility] [place] [address] Care Team Providers Care Specialty Person Name Role Phone Jez Vance MD Primary Care Provider +1 [phone] Encounter Details Date Type Department Care Team (Late st Contact Info) Description 11/17/2023 Notes Only [place] [address] Larry Mike, [facility] Social History Tobacco Use Types Packs/Day Years [...] from your doctor or pharmacy? Never 11/04/2023 [facility] Utilities Answer Date Recorded In the past 12 months has [employer], gas, oil, or water [employer] threatened to shut off services in your [...] any time in the past 12 m [facility], were you homeless or living in [...] this encounter Progress Notes * Larry Mike, [facility] - 11/17/2023 12:10 PM EDT Clinical Oncology Pharmacist Note Oncology PGx Results PATIENT ID: Benny Zurita is a 83 y.o. male with pancreatic adenocarcinoma. The patient's currenttreatment plan includes: FOLFIRINOX. Pharmacist interpretation of Oncology PGx results is as follows: Interpretation: Gene Based on most recent FDA, CPIC (Clinical Pharmacogenetics Implementation Consortium), and DPWG(British pharmacogenetics working group) guidelines: DPYD Intermediate metabolizer [...] is recommended. UGT1A1*1/*93 impact: The *93 allele ([id number]) is commonly seen in linkage with the [...] 8:00 AM EDT Office Visit Hematology/Oncology at [address] [phone] Antonio Brownlee MD [facility] [place] [address] [address] HEMATOLOGY AND ONCOLOGY [place], [place] [id number] 12/03/2023 8:30 AM EDT Infusion Hematology Oncology at [address] [phone] 12/03/2023 9:00 AM EDT Clinical Support Hematology/Oncology at [address] [phone] [facility] DR HEMATOLOGY [place] [address] 12/17/2023 8:30 AM EDT Office Visit Hematology/Oncology at [address] [phone] Antonio Brownlee MD [facility] [place] [address] [address] HEMATOLOGY AND ONCOLOGY [place], [place] [id number] 12/17/2023 9:00 AM EDT Infusion Hematology Oncology at [address] [phone] 12/30/2023 9:00 AM EST Office Visit Hematology/Oncology at [address] [phone] Antonio Brownlee MD [facility] [place] [address] Fani Haskins APRN [address] [place] [address] DR HEMATOLOGY AND ONCOLOGY [place], [place] [id number] 12/30/2023 9:30 AM EST Infusion Hematology Oncology at [address] [phone] documented as of this encounter Visit Diagnoses Not on filedocumented in this encounter Care Teams Specialty Person Relationship Specialty Start Date End Date Jez Vance MD [address] [place] [address] PCP - General 01/07/10 documented as of this encounter
--- OUTSIDE RECORDS SUMMARY | 2023-12-03 01:11 | XMS_ITS | Encounter Summary ---
Author Organization [facility] Address [facility] [place] [address] Care Team Providers Care Cloth Designer Name Role Phone Jez Vance MD Primary Care Provider +1 [phone] Encounter Details Date Type Department Care Team (Late st Contact Info) Description 11/17/2023 Orders Only [place]ematology [place] [address] Antonio Brownlee MD [facility] [place] [address] Social History Tobacco Use Types Packs/Day Years [...] from your doctor or pharmacy? Never 11/04/2023 [facility] Utilities Answer Date Recorded In the [...] any time in the past 12 m [facility], were you homeless or living in [...] 8:00 AM EDT Office Visit Hematology/Oncology at [address] [phone] Antonio Brownlee MD [facility] [place] [address] HEMATOLOGY [place] [address] 12/03/2023 8:30 AM EDT Infusion Hematology Oncology at [address] [phone] 12/03/2023 9:00 AM EDT Clinical Support Hematology/Oncology at [address] [phone] [facility] [place] [address] 12/17/2023 8:30 AM EDT Office Visit Hematology/Oncology at [address] [phone] Antonio Brownlee MD [facility] [place] [address] Fani Haskins, [address] HEMATOLOGY AND ONCOLOGY [place], [place] [address] 12/17/2023 9:00 AM EDT Infusion Hematology Oncology at [address] [phone] 12/30/2023 9:00 AM EST Office Visit Hematology/Oncology at [address] [phone] Antonio Brownlee MD [facility] [place] [address] F[address]askins [address] HEMATOLOGY AND ONCOLOGY [place], [place] [address] 12/30/2023 9:30 AM EST Infusion Hematology Oncology at [address] [phone] documented as of this encounter Visit Diagnoses Not on filedocumented in this encounter Care Teams Cloth Designer Relationship Specialty Start Date End Date Jez Vance MD [address] [place] [address] PCP - General 01/07/10 documented as of this encounter
--- OUTSIDE RECORDS SUMMARY | 2023-12-03 01:12 | XMS_ITS | Encounter Summary ---
Author Organization [facility] [place] [address] Care Team Providers Care Garnett Room Worker Name Role Phone Jez Vance MD Primary Care Provider [phone] [phone] Reason for Visit * Reason Comments Genetic Evaluation Encounter Details Date Type Department Care Team (Late st Contact Info) Description 11/09/2023 10:30 AM EDT Office Visit [place] [address] Kemal Matthews V, [facility] Hematology/[place] [address] Malignant neoplasm of head of pancreas; Malignant [...] time in the past 12 m [facility], were you homeless or living [...] encounter Progress Notes * Kemal Matthews V, [facility] - 11/09/2023 10:30 AM EDT Benny Zurita was seen by Kemal Matthews [facility] in consultation at the request of Ros [...] Father 83 metastatic Maternal ethnic background is Brazilian, [place]. Paternal ethnic background is Fijian. There is no known Ashkenazi Synagogue ancestry. Genetic risk assessment Based on personal [...] impact pancreatic cancer treatment such as with [facility] chemotherapy and/or PARP inhibitors as well as [...] gene alteration. Benny opted for testing with [facility] CancerNext-Expanded +RNAinsight Panel, a next generation sequencing panel that simultaneously analyzes 71 genes, including BRCA1 and BRCA2, that contribute to increased risk for cancer. Benny was consented. His blood sample will be drawn today and sent to [facility]. Testing will take up to 3 weeks [...] 8:00 AM EDT Office Visit Hematology/Oncology at [address] [phone] Antonio Brownlee MD [facility] DR ONCOLOGY [place] [address] Fani Haskins APRN [address] [place] [address] HEMATOLOGY AND ONCOLOGY [place], [place] [address] 12/03/2023 8:30 AM EDT Infusion Hematology Oncology at [address] [phone] 12/03/2023 9:00 AM EDT Clinical Support Hematology/Oncology at [address] [phone] [facility] DR HEMATOLOGY [place] [address] 12/17/2023 8:30 AM EDT Office Visit Hematology/Oncology at [address] [phone] Antonio Brownlee MD [facility] [place] [address] [address] HEMATOLOGY AND ONCOLOGY [place], [place] [address] 12/17/2023 9:00 AM EDT Infusion Hematology Oncology at [address] [phone] 12/30/2023 9:00 AM EST Office Visit Hematology/Oncology at [address] [phone] Antonio Brownlee MD [facility] [place] [address] Fani Haskins [address] HEMATOLOGY AND ONCOLOGY [place], [place] [address] 12/30/2023 9:30 AM EST Infusion Hematology Oncology at [address] [phone] documented as of this encounter Visit Diagnoses Diagnosis 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
--- OUTSIDE RECORDS SUMMARY | 2023-12-03 01:12 | XMS_ITS | Encounter Summary ---
Author Organization [facility] Address [facility] [place] [address] Care Team Providers Care Marriage And Family Social Worker Name Role Phone Jez Vance MD Primary Care Provider [phone] [phone] Encounter Details Date Type Department Care Team (Latest Contact Info) Description 10/30/2023 Travel Social History Tobacco Use Types Packs/Day Years Used Date Smoking Tobacco: Never Smokeless Tobacco: Never Alcohol Use Standard Drinks/Week Comments Yes 1 (1 standard drink = 0.6 oz pur e alcohol) social drinker once a month [facility] Utilities Answer Date Recorded In the [...] in a group home (including now)? No 10/25/2023 IPV Inpatient [...] AM EDT Office Visit Hematology/Oncology at [address] [phone] Antonio Brownlee MD [facility] [place] [address] Fani Haskins APRN [address] [place] [address] DR HEMATOLOGY AND ONCOLOGY [place], [place] [id number] 12/03/2023 8:30 AM EDT Infusion Hematology Oncology at [address] [phone] 12/03/2023 9:00 AM EDT Clinical Support Hematology/Oncology at [address] [phone] [facility] DR [place] [address] 12/17/2023 8:30 AM EDT Office Visit Hematology/Oncology at [address] [phone] Antonio Brownlee MD [facility] [place] [address] Fani Haskins [address] HEMATOLOGY AND ONCOLOGY [place], [place] [id number] 12/17/2023 9:00 AM EDT Infusion Hematology Oncology at [address] [phone] 12/30/2023 9:00 AM EST Office Visit Hematology/Oncology at [address] [phone] Antonio Brownlee MD [facility] [address] [place] [address] 12/30/2023 9:30 AM EST Infusion Hematology Oncology at [address] [phone] documented as of this encounter Visit Diagnoses Not on filedocumented in this encounter Care Teams Marriage And Family Social Worker Relationship Specialty Start Date End Date Jez Vance MD [address] [place] [address] PCP - General 01/07/10 documented as of this encounter
--- OUTSIDE RECORDS SUMMARY | 2023-12-03 01:12 | XMS_ITS | Encounter Summary ---
Author Organization [facility] Address [facility] [place] [address] Care Team Providers Care Retort Firer Name Role Phone Jez Vance MD Primary Care Provider [phone] [phone] Encounter Details Date Type Department Care Team (Late st Contact Info) Description 10/28/2023 Orders [place] [address] [facility] [place] [address] Social History Tobacco Use Types Packs/Day Years Used Date Smoking Tobacco: Never Smokeless Tobacco: Never Alcohol Use Standard Drinks/Week Comments Yes 1 (1 standard drink = 0.6 oz pur e alcohol) social drinker once a month [facility] Utilities Answer Date Recorded In the past 12 months has [employer], gas, oil, or water [employer] threatened to shut off services in your [...] time in the past [address] [facility], were you homeless or living in a care home (including now)? No 10/25/2023 DH IPV Inpatient [...] AM EDT Office Visit Hematology/Oncology at [address] [phone] [facility] [place] [address] HEMATOLOGY AND ONCOLOGY [place], [place] [address] 12/03/2023 8:30 AM EDT Infusion Hematology Oncology at [address] [phone] 12/03/2023 9:00 AM EDT Clinical Support Hematology/Oncology at [address] [phone] [facility] DR [place] [address] 12/17/2023 8:30 AM EDT Office Visit Hematology/Oncology at [address] [phone] [facility] [place] [address] HEMATOLOGY AND ONCOLOGY [place], [place] [id number] 12/17/2023 9:00 AM EDT Infusion Hematology Oncology at [address] [phone] 12/30/2023 9:00 AM EST Office Visit Hematology/Oncology at [address] [phone] [facility] [place] [address] [address] HEMATOLOGY AND ONCOLOGY [place], [place] [address] 12/30/2023 9:30 AM EST Infusion Hematology Oncology at [address] [phone] documented as of this encounter Visit Diagnoses Not on filedocumented in this encounter Care Teams Retort Firer Relationship Specialty Start Date End Date Jez Vance MD [address] [place] [address] PCP - General 01/07/10 documented as of this encounter
--- OUTSIDE RECORDS SUMMARY | 2023-12-03 01:12 | XMS_ITS | Encounter Summary ---
Author Organization [facility] Address [facility] [place] [address] Care Team Providers Care Help Desk Internship Name Role Phone Jez Vance MD Primary Care Provider [phone] [phone] Encounter Details Date Type Department Care Team (Late st Contact Info) Description 10/29/2023 Telephone [place] [phone] Carmen Obrien MD [facility] [address] Social History Tobacco Use Types Packs/Day Years Used Date Smoking Tobacco: Never Smokeless Tobacco: Never Alcohol Use Standard Drinks/Week Comments Yes 1 (1 standard drink = 0.6 oz pur e alcohol) social drinker once a month [facility] Utilities Answer Date Recorded In the past 12 months has [employer], gas, oil, or water [employer] threatened to shut off services in your [...] in a fdc (including now)? No 08/06/2022 Housing Stability Vital [...] were you homeless or living in a fdc (including now)? No 10/25/2023 DH IPV Inpatient [...] Mr. Zurita is an 83-year-old man from [place], [place]. His past medical history is notable forprostate cancer on Lupron, hypertension, hyperlipidemia, and mild asthma. He presented with progressive weakness and nausea and was found to be hypokalemic with abnormal LFTs. He underwent a workup at [facility] as detailed below. Resectability status for newly [...] discharged to home from hospital medicine at [facility]. Patient needs evaluation at the Pancreas Tumor Clinic (PTC) and presentation the GI tumor board. Shorty Obrien MD 10/29/2023 9:39 AM documented in this encounter Plan of Treatment Upcoming Encounters Date Type Department Care Team (Late st Contact Info) Description 12/03/2023 8:00 AM EDT Office Visit Hematology/Oncology at [address] [phone] Antonio Brownlee MD [facility] [place] [address] Fani Haskins APRN [address] [place] [place] [address] DR HEMATOLOGY AND ONCOLOGY [place], [place] [id number] 12/03/2023 8:30 AM EDT Infusion Hematology Oncology at [address] [phone] 12/03/2023 9:00 AM EDT Clinical Support Hematology/Oncology at [address] [phone] [facility] HEMATOLOGY [place] [address] 12/17/2023 8:30 AM EDT Office Visit Hematology/Oncology at [address] [phone] Antonio Brownlee MD [facility] [place] [address] [place] [address] 12/17/2023 9:00 AM EDT Infusion Hematology Oncology at [address] [phone] 12/30/2023 9:00 AM EST Office Visit Hematology/Oncology at [address] [phone] Antonio Brownlee MD [facility] [place] [address] HEMATOLOGY AND ONCOLOGY [place], [place] [address] 12/30/2023 9:30 AM EST Infusion Hematology Oncology at [address] [phone] documented as of this encounter Visit Diagnoses Not on filedocumented in this encounter Care Teams Help Desk Internship Relationship Specialty Start Date End Date Jez Vance MD [address] [place] [address] PCP - General 01/07/10 documented as of this encounter
--- OUTSIDE RECORDS SUMMARY | 2023-12-03 01:12 | XMS_ITS | Encounter Summary ---
Author Organization [facility] Address [facility] [place] [address] Care Team Providers Care Associate Doctor Name Role Phone Jez Vance MD Primary Care Provider [phone] [phone] Encounter Details Date Type Department Care Team (Late st Contact Info) Description 11/01/2023 Telephone Radiation Oncology at [address] [phone] Sapna Cox Social History Tobacco Use Types Packs/Day Years Used Date Smoking Tobacco: Never Smokeless Tobacco: Never Alcohol Use Standard Drinks/Week Comments Yes 1 (1 standard drink = 0.6 oz pur e alcohol) social drinker once a month [facility] Utilities Answer Date Recorded In the [...] living in a [facility] (including now)? No 10/25/2023 IPV Inpatient Questions [...] 8:00 AM EDT Office Visit Hematology/Oncology at [address] [phone] Antonio Brownlee MD [facility] [place] [address] Fani Haskins APRN [address] [place] [address] DR HEMATOLOGY AND ONCOLOGY [place], [place] [id number] 12/03/2023 8:30 AM EDT Infusion Hematology Oncology at [address] [phone] 12/03/2023 9:00 AM EDT Clinical Support Hematology/Oncology at [address] [phone] [facility] DR [place] [address] 12/17/2023 8:30 AM EDT Office Visit Hematology/Oncology at [address] [phone] Antonio Brownlee MD [facility] [place] [address] [address] HEMATOLOGY AND ONCOLOGY [place], [place] [id number] 12/17/2023 9:00 AM EDT Infusion Hematology Oncology at [address] [phone] 12/30/2023 9:00 AM EST Office Visit Hematology/Oncology at [address] [phone] Antonio Brownlee MD [facility] [place] [address] Fani Haskins [address] HEMATOLOGY AND ONCOLOGY [place], [place] [id number] 12/30/2023 9:30 AM EST Infusion Hematology Oncology at [address] [phone] documented as of this encounter Visit Diagnoses Not on filedocumented in this encounter Care Teams Associate Doctor Relationship Specialty Start Date End Date Jez Vance MD [address] [place] [address] PCP - General 01/07/10 documented as of this encounter
--- OUTSIDE RECORDS SUMMARY | 2023-12-03 01:12 | XMS_ITS | Encounter Summary ---
Author Organization [facility] [place] [address] Care Team Providers Care Project Management Analyst Name Role Phone Jez Vance MD Primary Care Provider [phone] Reason for Referral * Surgical (Routine) - Closed Specialty Diagnoses / Procedures Referred By Contac t Referred To Contact General Surgery Diagnoses Malignant neoplasm of prostate Ros Gonzá[place] [address] [facility] Gen Surgery [address] [place] [phone] Referral ID Status Reason Start Date Expiration Date V isits Requested Visits Authorized [id number] Closed Consult, Test & Treat 10/28/2023 10/27/2024 1 1 * Consultation (Routine) - Closed Specialty Diagnoses / Procedures Referred By Contac t Referred To Contact Gastroenterology Diagnoses Pancreatic mass Ros [place] [address] [facility] Gastro [address] [place] [phone] Referral ID Status Reason Start Date Expiration Date V isits Requested Visits Authorized [id number] Closed Specialty Service Requested 10/27/2023 10/26/2024 1 1 * Consultation (Routine) - Closed Specialty Diagnoses / Procedures Referred By Deena yao Referred To Contact Gastroenterology Diagnoses Pancreatic mass Painless jaundice Malignant neoplasm of prostate Ros [place] [address] [facility] [address] [place] [address] Referral ID Status Reason Start Date Expiration Date V isits Requested Visits Authorized [id number] Closed Consult, Test & Treat 10/26/2023 10/25/2024 1 1 * Consultation (Routine) - Closed Specialty Diagnoses / Procedures Referred By Deena yao Referred To Contact Hematology and Oncology Diagnoses Pancreatic mass Painless jaundice Malignant neoplasm of prostate [place] [address] [facility] Hem Onc [address] [place] [address] Referral ID Status Reason Start Date Expiration Date V isits Requested Visits Authorized [id number] Closed Consult, Test & Treat 10/26/2023 10/25/2024 1 1 Reason for Visit * Reason Comments Jaundice * Auth/Cert (Routine) Specialty Diagnoses / Procedures Referred By Deena yao Referred To Contact Diagnoses Cholestatic liver disease [place] [address] [facility] [[email or web address]] Referral ID Status Reason Start Date Expiration Date Visits Re quested Visits Authorized [id number] 1 1 Encounter Details Date Type Department Care Team (Latest Contact Info) Description 10/23/2023 12:17 PM EDT - 10/27/2023 3:16 PM EDT Hospital Encounter Hematology/Oncology Unit Level 1 [place] [address] Leia Henley MD [facility] [place] [address] Anjum Biggs MD [facility] [place] [address] [place] [address] [place] [address] Jaundice; Pancreatic mass; Hypokalemia; Painless jaundice; Malignant neoplasm of prostate Discharge Disposition: Home Social History Tobacco Use Types Packs/Day Years Used Date Smoking Tobacco: Never Smokeless Tobacco: Never Alcohol Use Standard Drinks/Week Comments Yes 1 (1 standard drink = 0.6 oz pur e alcohol) social drinker once a month [facility] Utilities Answer Date Recorded In the past 12 months has e [employer], gas, oil, or water Let threatened to shut off services in your [...] in a retirement (including now)? No 10/25/2023 IPV Inpatient Questions [...] so he presented to the ED at [facility]. In the ED, found to have hypokalemia (2.9), mild normocytic anemia (13.1), normal renal function, markedly elevated bilirubin (8.6), elevated LFT's (AST 258 / ALT 577). GI consulted by the ED and medicine paged for admission. Patient lives with his , split between here and [place]. 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 Rare EtOH. Nonsmoker. No [...] oncology team had reached out to the [facility] ([facility] New Patient schedulers to keep an eye [...] 10/23/2023 1:10 PM) Result Value WORKSTATION ID [id number] Impression 1. Hypodense pancreatic head mass concerning [...] have questions please contact the health home care liaison that requested your imaging first. Electronically signed by: Davy Sinclair MD, [facility] ([phone]), at 10/23/2023 1:[address] Chest w Contrast (Exam End: 10/24/2023 1:41 PM) Result Value WORKSTATION ID [id number] Impression No metastatic disease in the chest. Thank you for letting us participate in the care of this patient. If you are a health care provider and have any questions regarding this report, please contact the number below. For patients who have questions please contact the health home care liaison that requested your imaging first. Electronically signed by: Mariam Johnson MD, [facility] ([phone]), at 10/24/2023 5:21 PM Discharge Conditions/Prognosis: Stable; [...] oncology team had reached out to the [facility] ([facility]) New Patient schedulers to keep an eye [...] AM Adrienne Singh PA [facility] [place] [facility] 11/30/2023 9:45 AM Adrinene Singh PA [facility] [place] [facility] 11/30/2023 10:30 AM [facility], ROOM [facility] [place] [facility] Your Inpatient Doctor: Ros Gonzáles MD Your Primary Care Provider: Jez Vance MD [phone] For questions regarding this document or issues relating to this hospitalization on the Medical Service, please contact your inpatient physician through the [facility] Plodding Operator . Issues afterhours and on weekends [...] the day after the procedure, use an zcnu-syd-kvcmmic spray to numb your throat. Sucking on [...] occurs, please contact your Doctor. Please call [phone] before 8pm Mon-Fri with problems, questions or concerns. If you call after 8pm or on weekends, call the Hospital at [phone] and ask to speak to the Digital Recruiter foreman/pile driving and erection and the diffusion furnace operator will contact that person for you. When should you call for help? Call [phone] anytime you think you may need emergency [...] problems, like Where can you learn more? [facility] View your After Visit Summary and more online at [email or web address] If you would like to provide feedback about your hospital experience, please call the Office of Patient and Family Relations at . If you have received this After Visit Summary in error, please immediately return it in person to the department, or notify the [facility] Privacy Office by calling toll free at between the hours of 8AM and 5PM to arrange for our retrieval of the documents at no cost to you. Content Version: 12.2 ?? 1602-2840 [employer]. Care instructions adapted under license by [facility]. If you have questions about a medical condition or this instruction, always ask your healthcare professional. [employer] disclaims any warranty or liability for your [...] the day after the procedure, use an uqhu-kbg-zxbdkfx spray to numb your throat. Sucking on [...] occurs, please contact your Doctor. Please call [phone] before 8pm Mon-Fri with problems, questions or concerns. If you call after 8pm or on weekends, call the Hospital at [phone] and ask to speak to the Digital Recruiter foreman/pile driving and erection and the diffusion furnace operator will contact that person for you. When should you call for help? Call [phone] anytime you think you may need emergency [...] any problems. Where can you learn more? [facility] View your After Visit Summary and more online at [email or web address] If you would like to provide feedback about your hospital experience, please call the Office of Patient and Family Relations at . If you have received this After Visit Summary in error, please immediately return it in person to the department, or notify the [facility] Privacy Office by calling toll free at between the hours of 8AM and 5PM to arrange for our retrieval of the documents at no cost to you. Content Version: 12.2 ?? 9982-9084 [employer]. Care instructions adapted under license by [facility]. If you have questions about a medical condition or this instruction, always ask your healthcare professional. [employer] disclaims any warranty or liability for your [...] the day after the procedure, use an kodx-tmh-yiduycl spray to numb your throat. Sucking on [...] occurs, please contact your Doctor. Please call [phone] before 8pm Mon-Fri with problems, questions or concerns. If you call after 8pm or on weekends, call the Hospital at [phone] and ask to speak to the Digital Recruiter foreman/pile driving and erection and the diffusion furnace operator will contact that person for you. When should you call for help? Call [phone] anytime you think you may need emergency [...] any problems. Where can you learn more? [facility] View your After Visit Summary and more online at [email or web address] If you would like to provide feedback about your hospital experience, please call the Office of Patient and Family Relations at . If you have received this After Visit Summary in error, please immediately return it in person to the department, or notify the [facility] Privacy Office by calling toll free at between the hours of 8AM and 5PM to arrange for our retrieval of the documents at no cost to you. Content Version: 12.2 ?? 5081-3294 [employer]. Care instructions adapted under license by [facility]. If you have questions about a medical condition or this instruction, always ask your healthcare professional. [employer] disclaims any warranty or liability for your use of this information. Future Appointments and Orders Future Appointments and Orders Future Appointments Provider Department Dept Phone 11/02/2023 10:30 AM Adrienne Singh PA Radiation Oncology at [facility] Arrive at: Home [phone] 11/30/2023 9:45 AM Adrienne Singh PA Radiation Oncology at [facility] Arrive at: Home [phone] 11/30/2023 10:30 AM [facility], ROOM Hematology Oncology at [facility] Arrive at: [facility] door at end of hallway [phone] Future Orders Complete By Expires Referral to Gastroenterology [REF25 Custom] As directed Process Instructions: If requesting a colonoscopy please use [id number] AMB REFERRAL TO COLONOSCOPY PROCEDURE. This referral request is for evaluation and treatment of gastrointestinal health concerns. Scheduling Instructions: Questions: My question or request is: Status post ERCP and EUS for pancreatic cancer Referral to Gastroenterology [REF25 Custom] As directed Process Instructions: If requesting a colonoscopy please use CUI052 AMB REFERRAL TO COLONOSCOPY PROCEDURE. This referral [...] Vance MD [address] [facility] [address] Discharge References/Attachments: Discharge References/Attachments None documented in [...] the day after the procedure, use an klwh-zmn-rglumde spray to numb your throat. Sucking on [...] occurs, please contact your Doctor. Please call [phone] before 8pm Mon-Fri with problems, questions or concerns. If you call after 8pm or on weekends, call the Hospital at [phone] and ask to speak to the Digital Recruiter foreman/pile driving and erection and the diffusion furnace operator will contact that person for you. When should you call for help? Call [phone] anytime you think you may need emergency [...] problems, like Where can you learn more? [facility] View your After Visit Summary and more online at [email or web address] If you would like to provide feedback [...] cost to you. Content Version: 12.2 ?? 6924-9725 Hel[employer]. Care instructions adapted under license by [facility]. If you have questions about a medical condition or this instruction, always ask your healthcare professional. [employer] disclaims any warranty or liability for your [...] the day after the procedure, use an nyrm-slr-pgjvpfp spray to numb your throat. Sucking on [...] occurs, please contact your Doctor. Please call [phone] before 8pm Mon-Fri with problems, questions or concerns. If you call after 8pm or on weekends, call the Hospital at [phone] and ask to speak to the Digital Recruiter foreman/pile driving and erection and the diffusion furnace operator will contact that person for you. When should you call for help? Call [phone] anytime you think you may need emergency [...] any problems. Where can you learn more? [facility] View your After Visit Summary and more online at [email or web address] If you would like to provide feedback about your hospital experience, please call the Office of Patient and Family Relations at . If you have received this After Visit Summary in error, please immediately return it in person to the department, or notify the [facility] Privacy Office by calling toll free at between the hours of 8AM and 5PM to arrange for our retrieval of the documents at no cost to you. Content Version: 12.2 ?? 2865-2967 [employer]. Care instructions adapted under license by [facility]. If you have questions about a medical condition or this instruction, always ask your healthcare professional. [employer] disclaims any warranty or liability for your [...] the day after the procedure, use an zssa-wyo-jfkxdcp spray to numb your throat. Sucking on [...] occurs, please contact your Doctor. Please call [phone] before 8pm Mon-Fri with problems, questions or concerns. If you call after 8pm or on weekends, call the Hospital at [phone] and ask to speak to the Digital Recruiter foreman/pile driving and erection and the diffusion furnace operator will contact that person for you. [...] any problems. Where can you learn more? [facility] View your After Visit Summary and more online at [email or web address] If you would like to provide feedback about your hospital experience, please call the Office of Patient and Family Relations at . If you have received this After Visit Summary in error, please immediately return it in person to the department, or notify the [facility] Privacy Office by calling toll free at between the hours of 8AM and 5PM to arrange for our retrieval of the documents at no cost to you. Content Version: 12.2 ?? 6668-5078 [employer]. Care instructions adapted under license by [facility]. If you have questions about a medical condition or this instruction, always ask your healthcare professional. [employer] disclaims any warranty or liability for your [...] oncology team had reached out to the [facility] ([facility]) New Patient schedulers to keep an eye [...] AM Adrienne Singh PA [facility] [place] [facility] 11/30/2023 9:45 AM Adrienne Singh PA [facility] [place] [facility] 11/30/2023 10:30 AM [facility], ROOM [facility] Your Inpatient Doctor: Ros Gonzáles MD Your Primary Care Provider: Jez Vance MD [phone] For questions regarding this document or issues relating to this hospitalization on the Medical Service, please contact your inpatient physician through the [facility] Plodding Operator . Issues afterhours and on weekends [...] out of the unit by a unit MUSIC INTERN. Pt is discharged to his home and [...] spent >30 minutes (Day of Discharge Code 14605) involved in the final examination of the [...] General Information Benny Zurita 1940 Medicare Number: [id number] Transport Date: 10/26/2023 (PCS is valid for round trips on this date and for all repetitive trips in the 60-day range as noted below.) Origin: [address] Destination: [facility] Is the patient's stay covered under Medicare [...] van (i.e. seated during transport, without medical administrative specialist or monitoring?): No 4) In addition to [...] the Centers of Medicare and Medicaid Services ([facility]) to support the determination of medical necessity [...] minimumof two midnights or is on the [facility] inpatient only procedure list (status C) due to: severe hypokalemia and pancreatic mass requiring EUS/ERCP Team Pager(MD Coverage 07/09): #[phone] PCP: Jez Vance MD [phone] Ros Gonzáles MD 10/26/2023 * Vanesa Vance [...] have questions please contact the health home care liaison that requested your imaging first. Electronically signed by: Mariam Johnson MD, [facility] ([phone]), at 10/24/2023 5:[address] Abdomen & [...] have questions please contact the health home care liaison that requested your imaging first. Electronically signed by: Davy Sinclair MD, [facility] ([phone]), at 10/23/2023 1:26 PM ENDOSCOPY: Reports and [...] Gonzáles MD - 10/25/2023 6:33 PM EDT [facility] Medicine Attending Daily Progress Note Admit [...] QRS widening ( R in aVL , Cherry Log product ) Possible Lateral infarct , age [...] minimumof two midnights or is on the [facility] inpatient only procedure list (status C) due to: severe hypokalemia and pancreatic mass requiring EUS/ERCP Team Pager( Coverage 07/09): #[phone] PCP: Jez Vance MD [phone] Ros Gonzáles MD 10/25/2023 * Alethea Barnes [...] encounter: 84.8 kg (186 lb 15.2 oz). 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 Wallpaper Remover Steam met with Benny at bedside (pt's on phone during visit). Benny says that he has had a smaller appetiteand is eating ~50% of his normal sized meals (unable to provide daily intake). He still eats 3 meals per day and some snacks. Wallpaper Remover Steam encouraged 5-6 small meals per day to [...] maxillary line): None present Lean Muscle Loss Muslim region (temporalis muscle): None present Clavicle bone [...] minimumof two midnights or is on the [facility] inpatient only procedure list (status C) due to: severe hypokalemia Team Pager(MD Coverage 07/09): #[phone] PCP: Jez Vance MD [phone] Rj Rizvi MD 10/24/2023 * Vanesa Vance [...] Note CC/ID: 83 y.o. Male presents to [facility] with fatigue and nausea Subjective History of [...] so he presented to the ED at [facility]. In the ED, found to have hypokalemia [...] Immunizations given as needed. Rj Rizvi MD [facility] Medicine Pager [phone] documented in this encounter ED Notes * [...] back to room independently and reconnected to [facility]. Denies any further needs or concerns [...] 0 - 60 unit/L Type and screen ([facility]/ANDRE/FREDY) Result Value Ref Range ABORH Type O POSITIVE PATIENT HISTORY Not Found Expires at 2359 on: 10-26-2023 ANTIBODY SCREEN AUTOMATED Negative T&S only valid at [facility] LAB CBC (with Diff) Result Value Ref [...] have questions please contact the health home care liaison that requested your imaging first. Electronically signed by: Davy Sinclair MD, [facility] ([phone]), at 10/23/2023 1:26 PM Procedures Assessment and [...] ED team. Hudson Walker MD Resident 10/23/23 7054 Hudson Walker MD Resident 10/23/237 Associated attestation [...] Type: *No Product type* / Secondary Insurance: [facility] Prescription Coverage: Yes This plan was [...] Type: *No Product type* / Secondary Insurance: [facility] Plan for discharge is: Home w/o [...] 180 days) Any patient receiving care in [place] must abide by [place] law. The hierarchy [...] (i) The agent with financial power of civil rights attorney or a conservator appointed in accordance [...] homeless or living in a retirement (including now)?: No In the past 12 months has the [employer], gas, oil, or water Let threatened to shut off services in your [...] Home Address confirmed as: [address] [facility] [address] Social & Family Supports: All names listed below confirmed with patient as current and correct Extended Emergency Contact Information Primary Emergency Contact: Angela Zurita Address: [address] [place] [address] [facility] [place] Relation: Spouse Secondary Emergency Contact: Tiera Washington Address: [address] [place] [address] [facility] Relation: Child Current Care Provided by: [...] Type: *No Product type* / Secondary Insurance: [facility] ONLY if patient has Medicare A&B - Does this patient have secondary insurance?: Yes ; Prescription Coverage: Yes Preferred Pharmacy: [facility] [address] [place] [id number] Status: Patient is a : No Primary Care Provider confirmed: Jez Vance MD [phone] Patient/Caregiver Goals of Treatment: return to home [...] Intervention: Provide Person-Centered Care Flowsheets (Taken 10/24/2023 7630) Trust Relationship/Rapport: care explained choices provided Problem: [...] have questions please contact the health home care liaison that requested your imaging first. Electronically signed by: Davy Sinclair MD, [facility] ([phone]), at 10/23/2023 1:26 PM ENDOSCOPY: Reports and [...] 8:00 AM EDT Office Visit Hematology/Oncology at [address] [phone] Antonio Brownlee MD [facility] [place] [address] Fani Haskins, [address] HEMATOLOGY [place] [address] 12/03/2023 8:30 AM EDT Infusion Hematology Oncology at [address] [phone] 12/03/2023 9:00 AM EDT Clinical Support Hematology/Oncology at [address] [phone] [facility] HEMATOLOGY [place] [address] 12/17/2023 8:30 AM EDT Office Visit Hematology/Oncology at [address] [phone] Antonio Brownlee MD [facility] [place] [address] HEMATOLOGY AND ONCOLOGY [place], [place] [address] 12/17/2023 9:00 AM EDT Infusion Hematology Oncology at [address] [phone] 12/30/2023 9:00 AM EST Office Visit Hematology/Oncology at [address] [phone] Antonio Brownlee MD [facility] [place] [address] Fani Haskins, [address] HEMATOLOGY [place] [address] 12/30/2023 9:30 AM EST Infusion Hematology Oncology at [address] [phone] Scheduled Referrals Name Type Priority Associated Diagnoses [...] EDT Ercp Stent Placement Biliary Or Pancreatic Duct(19721) 10/25/2023 2:37 PM EDT pancreas head mass CHOLANGIOGRAM 10/25/2023 2:37 PM EDT pancreas head mass Ercp Balloon Dilatation Biliary/Pancreatic Duct Or Ampulla Ea Duct ([id number]) 10/25/2023 2:37 PM EDT pancreas head mass Ercp, Sphincterotomy (30839) 10/25/2023 2:37 PM EDT pancreas head mass Upgi Endoscopy W/Us Fn Bx ([id number]) 10/25/2023 2:37 PM EDT pancreas head mass Ercp, Diagnostic (29356) 10/25/2023 2:37 PM EDT pancreas head mass Endoscopic Us Exam, Esoph ([id number]) 10/25/2023 2:37 PM EDT pancreas head mass [...] 65 - 199 mg/dL 10/27/2023 5:56 AM EDT [facility] Comment:Glucose Concentratio n >=200 mg/dL plus symptoms is consistent with Diabetes Mellitus. Blood Urea Nitrogen 12 10 - 20 mg/dL 10/27/2023 5:56 AM [facility] Creatinine 0.53(L) 0.80 - 1.50 mg/dL 10/27/2023 5:56 AM [facility] Sodium 131(L) 135 - 145 mMol/L 10/27/2023 5:56 AM [facility] Potassium 3.5 3.5 - 5.0 mMol/L 10/27/2023 5:56 AM [facility] Chloride 95(L) 98 - 107 mMol/L 10/27/2023 5:56 AM [facility] Carbon Dioxide 22 22 - 31 mMol/L 10/27/2023 5:56 AM [facility] Anion Gap 14 5 - 15 mMol/L 10/27/2023 5:56 AM [facility] Calcium 8.4(L) 8.5 - 10.5 mg/dL 10/27/2023 5:56 AM [facility] Protein, Total 6.2 6.1 - 8.0 g/dL 10/27/2023 5:56 AM [facility] Albumin 3.5 3.2 - 5.2 g/dL 10/27/2023 5:56 AM [facility] Aspartate Aminotransferase 73(H) <=39 unit/L 10/27/2023 5:56 AM [facility] Alanine Aminotransferase 291(H) 0 - 55 unit/L 10/27/2023 5:56 AM [facility] Alkaline Phosphatase 329(H) 40 - 130 unit/L 10/27/2023 5:56 AM [facility] Bilirubin, Total 2.8(H) <=1.3 mg/dL 10/27/2023 5:56 AM [facility] Est Glomerular Filtration Rate - Male 101 mL/min/1. 73 m?? 10/27/2023 5:56 AM EDT [facility] Comment: This patient's estimated GFR [...] Gonzáles MD CHEMISTRY ORDERABLES Performing Organization Address City/[facility]/ZIP Co de Phone Number [facility] [place] [address] * (ABNORMAL) Magnesium (10/27/2023 3:35 AM EDT) Magnesium 0.63(L) 0.69 - 1.07 mMol/L 10/27/2023 5:56 AM EDT [facility] Blood VENOUS BLOOD SPECIMEN / Unknown IP Care Team Draw / Unknown 10/27/2023 3:35 AM EDT 10/27/2023 3:47 AM EDT Ros Gonzáles MD CHEMISTRY ORDERABLES [facility] [place] [address] * (ABNORMAL) Phosphorus (10/27/2023 3:35 AM EDT) Phosphorus 2.4(L) 2.5 - 4.5 mg/dL 10/27/2023 5:56 AM EDT [facility] Blood VENOUS BLOOD SPECIMEN / Unknown IP Care Team Draw / Unknown 10/27/2023 3:35 AM EDT 10/27/2023 3:47 AM EDT Ros Gonzáles MD CHEMISTRY ORDERABLES [facility] [place] [address] * (ABNORMAL) CBC (with Diff) (10/27/2023 3:35 AM EDT) White Blood Cell 9.79(H) 4.00 - 9.50 x10(3)/mc L 10/27/2023 3:54 AM EDT [facility] Red Blood Cell 3.65(L) 4.58 - 5.54 x10(6)/mc L 10/27/2023 3:54 AM EDT [facility] Hemoglobin 11.9(L) 13.7 - 16.5 g/dL 10/27/2023 3:54 AM EDT [facility] Hematocrit 34.1(L) 40.5 - 48.5 % 10/27/2023 3:54 AM EDT [facility] Mean Cell Volume 93.4(H) 82.9 - 93.1 fL 10/27/2023 3:54 AM EDT [facility] Mean Cell Hemoglobin 32.6(H) 27.5 - 32.1 pg 10/27/2023 3:54 AM EDT [facility] Mean Cell Hemoglobin Concentration 34.9 32.0 - 35.7 g/dL 10/27/2023 3:54 AM EDT [facility] Platelet 196 145 - 357 x10(3)/mc L 10/27/2023 3:54 AM EDT [facility] Mean Platelet Volume 12.0 7.6 - 12.9 fL 10/27/2023 3:54 AM EDT [facility] RDW Standard Deviation 47.1(H) 36.0 - 45.0 fL 10/27/2023 3:54 AM EDT [facility] RDW coefficient of variation 13.9(H) 11.4 - 13.8 % 10/27/2023 3:54 AM [facility] NRBC% auto 0.0 % [facility] Absolute 0.00 0.00 - 0.00 x10(3)/mc L 10/27/2023 3:[facility] Neutrophil % 80.7 % 10/27/2023 3:54 AM [facility] Neutrophil Absolute (ANC) - Automated 7.90(H) 1.70 - 6.10 x10(3)/mc L 10/27/2023 3:54 AM [facility] Lymph % 8.3 % 10/27/2023 3:54 AM [facility] Lymph Absolute 0.81(L) 0.90 - 3.20 x10(3)/mc L 10/27/2023 3:54 AM [facility] Monocyte % 9.3 % 10/27/2023 3:54 AM [facility] Monocyte Absolute 0.91(H) 0.30 - 0.90 x10(3)/mc L 10/27/2023 3:54 AM [facility] Eos % 0.8 % 10/27/2023 3:54 AM [facility] Eos Absolute 0.08 0.00 - 0.40 x10(3)/mc L 10/27/2023 3:[facility] Basophil % 0.3 % 10/27/2023 3:54 AM [facility] Baso Absolute 0.03 0.00 - 0.10 x10(3)/mc L 10/27/2023 3:54 [facility] Immature Gran % 0.6 % 3:54 AM [facility] Immature Gran Absolute 0.06(H) 0.00 - 0.04 x10(3)/mc L 10/27/2023 3:54 AM EDT [facility] Blood VENOUS BLOOD SPECIMEN / Unknown IP Care Team Draw / Unknown 10/27/2023 3:35 AM EDT 10/27/2023 3:47 AM EDT Ros Gonzáles MD HEMATOLOGY ORDERABLE S [facility] [place] [address] * (ABNORMAL) Comprehensive metabolic panel (10/26/2023 4:00 AM EDT) Glucose 136 65 - 199 mg/dL 10/26/2023 4:45 AM [facility] Comment:Glucose Concentratio n >=200 mg/dL plus symptoms is consistent with Diabetes Mellitus. Blood Urea Nitrogen 19 10 - 20 mg/dL 10/26/2023 4:45 AM [facility] Creatinine 0.69(L) 0.80 - 1.50 mg/dL 10/26/2023 4:45 AM [facility] Sodium 131(L) 135 - 145 mMol/L 10/26/2023 4:45 AM [facility] Potassium 3.6 3.5 - 5.0 mMol/L 10/26/2023 4:45 AM [facility] Chloride 94(L) 98 - 107 mMol/L 10/26/2023 4:45 AM [facility] Carbon Dioxide 24 22 - 31 mMol/L 10/26/2023 4:45 AM [facility] Anion Gap 13 5 - 15 mMol/L 10/26/2023 4:45 AM [facility] Calcium 8.7 8.5 - 10.5 mg/dL 10/26/2023 4:45 AM [facility] Protein, Total 6.2 6.1 - 8.0 g/dL 10/26/2023 4:45 AM [facility] Albumin 3.4 3.2 - 5.2 g/dL 10/26/2023 4:45 AM EDT [facility] Aspartate Aminotransferase 132(H) <=39 unit/L 10/26/2023 4:45 AM EDT [facility] Alanine Aminotransferase 400(H) 0 - 55 unit/L 10/26/2023 4:45 AM EDT [facility] Alkaline Phosphatase 384(H) 40 - 130 unit/L 10/26/2023 4:45 AM EDT [facility] Bilirubin, Total 3.6(H) <=1.3 mg/dL 10/26/2023 4:45 AM EDT [facility] Est Glomerular Filtration Rate - Male 93 mL/min/1. 73 m?? 10/26/2023 4:45 AM T [facility] Comment: This patient's estimated GFR [...] AM EDT Ros Gonzáles MD CHEMISTRY ORDERABLES [facility] [place] [address] * (ABNORMAL) Magnesium (10/26/2023 4:00 AM EDT) Magnesium 0.65(L) 0.69 - 1.07 mMol/L 10/26/2023 4:45 AM EDT [facility] Blood VENOUS BLOOD SPECIMEN / Unknown IP Care Team Draw / Unknown 10/26/2023 4:00 AM EDT 10/26/2023 4:12 AM EDT Ros Gonzáles MD CHEMISTRY ORDERABLES [facility] [place] [address] * Phosphorus (10/26/2023 4:00 AM EDT) Phosphorus 3.1 2.5 - 4.5 mg/dL 10/26/2023 4:45 AM EDT [facility] Blood VENOUS BLOOD SPECIMEN / Unknown IP Care Team Draw / Unknown 10/26/2023 4:00 AM EDT 10/26/2023 4:12 AM EDT Ros Gonzáles MD CHEMISTRY ORDERABLES Performing Organization Address City/[facility]/ZIP Co de Phone Number [facility] [place] [address] * (ABNORMAL) CBC (with Diff) (10/26/2023 4:00 AM EDT) White Blood Cell 7.51 4.00 - 9.50 x10(3)/mc L 10/26/2023 4:47 AM EDT [facility] Red Blood Cell 3.79(L) 4.58 - 5.54 x10(6)/mc L 10/26/2023 4:47 AM EDT [facility] Hemoglobin 12.2(L) 13.7 - 16.5 g/dL 10/26/2023 4:47 AM EDT [facility] Hematocrit 35.2(L) 40.5 - 48.5 % 10/26/2023 4:47 AM EDT [facility] Mean Cell Volume 92.9 82.9 - 93.1 fL 10/26/2023 4:47 AM EDT [facility] Mean Cell Hemoglobin 32.2(H) 27.5 - 32.1 pg 10/26/2023 4:47 AM [facility] Mean Cell Hemoglobin Concentration 34.7 32.0 - 35.7 g/dL 10/26/2023 4:47 AM [facility] Platelet 210 145 - 357 x10(3)/mc L 10/26/2023 4:47 AM [facility] Mean Platelet Volume 11.7 7.6 - 12.9 fL 10/26/2023 4:47 AM [facility] RDW Standard Deviation 48.8(H) 36.0 - 45.0 fL 10/26/2023 4:47 AM [facility] RDW coefficient of variation 14.3(H) 11.4 - 13.8 % 10/26/2023 4:47 AM [facility] NRBC% auto 0.0 % 10/26/2023 4:47 AM [facility] NRBC Absolute 0.00 0.00 - 0.00 x10(3)/mc L 10/26/2023 4:47 AM [facility] Neutrophil % 80.3 % 10/26/2023 4:47 AM [facility] Neutrophil Absolute (ANC) - Automated 6.04 1.70 - 6.10 x10(3)/mc L 10/26/2023 4:47 AM [facility] Lymph % 11.1 % 10/26/2023 4:47 AM [facility] Lymph Absolute 0.83(L) 0.90 - 3.20 x10(3)/mc L 10/26/2023 4:47 AM [facility] Monocyte % 6.8 % 10/26/2023 4:47 AM [facility] Monocyte Absolute 0.51 0.30 - 0.90 x10(3)/mc L 10/26/2023 4:47 AM [facility] Eos % 1.1 % 10/26/2023 4:47 AM [facility] Eos Absolute 0.08 0.00 - 0.40 x10(3)/mc L 10/26/2023 4:47 AM EDT [facility] Basophil % 0.3 % 10/26/2023 4:47 AM EDT [facility] Baso Absolute 0.02 0.00 - 0.10 x10(3)/mc L 10/26/2023 4:47 AM EDT [facility] Immature Gran % 0.4 % 4:47 AM EDT [facility] Immature Gran Absolute 0.03 0.00 - 0.04 x10(3)/mc L 10/26/2023 4:47 AM EDT [facility] Blood VENOUS BLOOD SPECIMEN / Unknown IP Care Team Draw / Unknown 10/26/2023 4:00 AM EDT 10/26/2023 4:13 AM EDT Ros Gonzáles MD HEMATOLOGY ORDERABLE S Performing Organization Address [facility] de Phone Number [facility] [place] [address] * XR ERCP (10/25/2023 4:40 PM EDT) Narrative [facility] - 10/25/2023 4:45 PM EDT See PACS for result report. Ros Gonzáles MD IMG FILM LIBRARY ORD ERABLES Performing Organization Address [facility] de Phone Number [place], [place] * (ABNORMAL) Cytology FNA (10/25/2023 3:19 PM EDT) Case Report Medical Cytology Report ? Case: [id number] ? Authorizing Provider: ??Ros Gonzáles MD ?Collected: ? 10/25/2023 1519 ? Ordering Location: ? Gastroenterology at [facility] [place] ?? Received: ?10/25/2023 1627 ? Pathologist: ? Garrick Vuong MD ? Specimen: ?Pancreas, Head, mass ? 10/28/2023 11:54 AM [facility] Specimen Source Pancreas, Head (EUS-guided FNA) 10/28/2023 11:54 AM [facility] Final Diagnosis Positive for malignancy 10/28/2023 11:54 AM [facility] Diagnosis Discussion Adenocarcinoma. (Cell block was examined.) 10/28/2023 11:54 AM [facility] Specimen Adequacy Satisfactory for evaluation. 10/28/2023 11:54 AM [facility] Additional Studies Block Antibody Result A2 [...] The assays were performed according to the perch machine inspector's instructions using anti MLH-1 (ES05), anti-MSH-2 ([id number]), andti-MSH-6 (44), and anti-PMS-2 (MRQ-28) antibodies. 10/28/2023 11:54 AM [facility] Disclaimer(s) Formalin-fixed, paraffin-embedded tissue sections are [...] and other diagnostic tests. 10/28/2023 11:54 AM [facility] Clinical Information 83 yrs old male/EUS/ERCP/ pancreas head mass, malignant biliary obstruction 10/28/2023 11:54 AM [facility] Immediate Assessment Fine Needle Aspiration Immediate [...] Discussion for final interpretation. 10/28/2023 11:54 AM [facility] Gross Description Received in formalin, approximately 45 mL total volume of cloudy, red fluid with clots. Total preparation: Diff-Quik slide(s): 4, Pap Stain slide(s): 4, and Cell Block: 1. 10/28/2023 11:54 AM [facility] Result Note THIS RESULT REQUIRES PHYSICIAN/CRYSTAL FOLLOW UP(A) 10/28/2023 11:54 AM [facility] Fine Needle Aspirate STRUCTURE OF HEAD OF PANCREAS / Unknown Non Blood Collection / Unknown 10/25/2023 3:19 PM EDT 10/25/2023 4:27 PM EDT Ros Gonzáles MD PATHOLOGY/CYTOLOGY O RDERABLES [facility] [place] [address] * ERCP (10/25/2023 2:24 PM EDT) ERCP [facility] Endoscopy Procedure Date: 10/25/2023 2:24 PM ? Patient Name: Benny Zurita ? Date of : 1940 ? Age: 83 ? Order #: [id number] ? Instrument Name: [id number] ? Procedure: ? ERCP Providers: ? Aaron Alvarado ? Mariah Olmos, ? Fish Machine Feeder Referring MD: ?Andres Benitez MD Complications: ? [...] (10/25/2023 2:23 PM EDT) UPPER ENDOSCOPIC ULTRASOUND [facility] Endoscopy Procedure Date: 10/25/2023 2:23 PM ? Patient Name: Benny Zurita ? Date of : 1940 ? Age: 83 ? Order #: [id number] ? Instrument Name: [id number] ? Procedure: ? Upper EUS Patient Profile: ? 83m with suspected malignant ? biliary obstruction Providers: ? Andrew Reynoso, Aaron Schmitt ? Mariah Olmos, ? Fish Machine Feeder Referring MD: ? Medicines: ? See the [...] without invasion ? - Using a 22G Vidly needle with stylet through ? Duodenum, FNB [...] 9.50 x10(3)/mc L 10/25/2023 4:28 AM EDT [facility] Red Blood Cell 3.76(L) 4.58 - 5.54 x10(6)/mc L 10/25/2023 4:28 AM [facility] Hemoglobin 12.2(L) 13.7 - 16.5 g/dL 10/25/2023 4:28 AM [facility] Hematocrit 34.1(L) 40.5 - 48.5 % 10/25/2023 4:28 AM [facility] Mean Cell Volume 90.7 82.9 - 93.1 fL 10/25/2023 4:28 AM [facility] Mean Cell Hemoglobin 32.4(H) 27.5 - 32.1 pg 10/25/2023 4:28 AM [facility] Mean Cell Hemoglobin Concentration 35.8(H) 32.0 - 35.7 g/dL 10/25/2023 4:28 AM [facility] Platelet 193 145 - 357 x10(3)/mc L 10/25/2023 4:28 AM [facility] Mean Platelet Volume 11.4 7.6 - 12.9 fL 10/25/2023 4:28 AM [facility] RDW Standard Deviation 46.3(H) 36.0 - 45.0 fL 10/25/2023 4:28 AM [facility] RDW coefficient of variation 13.9(H) 11.4 - 13.8 % 10/25/2023 4:28 AM [facility] NRBC% auto 0.0 % 10/25/2023 4:28 AM [facility] NRBC Absolute 0.00 0.00 - 0.00 x10(3)/mc L 10/25/2023 4:28 AM [facility] Neutrophil % 63.6 % 10/25/2023 4:28 AM [facility] Neutrophil Absolute (ANC) - Automated 2.88 1.70 - 6.10 x10(3)/mc L 10/25/2023 4:28 AM [facility] Lymph % 16.8 % 10/25/2023 4:28 AM [facility] Lymph Absolute 0.76(L) 0.90 - 3.20 x10(3)/mc L 10/25/2023 4:28 AM [facility] Monocyte % 11.1 % 10/25/2023 4:28 AM [facility] Monocyte Absolute 0.50 0.30 - 0.90 x10(3)/mc L 10/25/2023 4:28 AM [facility] Eos % 6.9 % 10/25/2023 4:28 AM [facility] Eos Absolute 0.31 0.00 - 0.40 x10(3)/mc L 10/25/2023 4:28 AM [facility] Basophil % 0.9 % 10/25/2023 4:28 AM [facility] Baso Absolute 0.04 0.00 - 0.10 x10(3)/mc L 10/25/2023 4:28 AM [facility] Immature Gran % 0.7 % 4:28 AM [facility] Immature Gran Absolute 0.03 0.00 - 0.04 x10(3)/mc L 10/25/2023 4:28 AM [facility] Blood VENOUS BLOOD SPECIMEN / Unknown IP Care Team Draw / Unknown 10/25/2023 3:53 AM EDT 10/25/2023 4:17 AM EDT Rj Rizvi MD HEMATOLOGY ORDERABLE S [facility] [place] [address] * (ABNORMAL) Comprehensive metabolic panel (10/25/2023 3:53 AM EDT) Glucose 121 65 - 199 mg/dL 10/25/2023 4:45 AM EDT [facility] Comment:Glucose Concentratio n >=200 mg/dL plus symptoms is consistent with Diabetes Mellitus. Blood Urea Nitrogen 20 10 - 20 mg/dL 10/25/2023 4:45 AM EDT [facility] Creatinine 0.70(L) 0.80 - 1.50 mg/dL 10/25/2023 4:45 AM EDT [facility] Sodium 131(L) 135 - 145 mMol/L 10/25/2023 4:45 AM EDT [facility] Potassium 3.7 3.5 - 5.0 mMol/L [facility]23 [facility] Chloride 97(L) 98 - 107 mMol/L 10/25/2023 4:[facility] Carbon Dioxide 22 22 - 31 mMol/L 10/25/2023 4:45 AM EDT [facility] Anion Gap 12 5 - 15 mMol/L 10/25/2023 4:45 AM EDT [facility] Calcium 8.8 8.5 - 10.5 mg/dL 10/25/2023 4:[facility] Protein, Total 5.9(L) 6.1 - 8.0 g/dL 10/25/2023 4:45 AM EDT [facility] Albumin 3.3 3.2 - 5.2 g/dL 10/25/2023 4:45 AM EDT [facility] Aspartate Aminotransferase 190(H) <=39 unit/L 10/25/2023 4:45 AM EDT [facility] Alanine Aminotransferase 458(H) 0 - 55 unit/L 10/25/2023 4:45 AM EDT [facility] Alkaline Phosphatase 366(H) 40 - 130 unit/L 10/25/2023 4:45 AM EDT [facility] Bilirubin, Total 8.5(H) <=1.3 mg/dL 10/25/2023 4:45 AM EDT [facility] Est Glomerular Filtration Rate - Male 93 mL/min/1. 73 m?? 10/25/2023 4:45 AM EDT [facility] Comment: This patient's estimated GFR [...] AM EDT Rj Rizvi MD CHEMISTRY ORDERABLES [facility] [place] [address] * (ABNORMAL) Basic Metabolic Panel (10/24/2023 4:17 PM EDT) Glucose 147 65 - 199 mg/dL 10/24/2023 4:48 PM EDT [facility] Comment:Glucose Concentratio n >=200 mg/dL plus symptoms is consistent with Diabetes Mellitus. Blood Urea Nitrogen 17 10 - 20 mg/dL 10/24/2023 4:48 PM EDT [facility] Creatinine 0.68(L) 0.80 - 1.50 mg/dL 10/24/2023 4:48 PM EDT [facility] Sodium 131(L) 135 - 145 mMol/L 10/24/2023 4:48 PM EDT [facility] Potassium 3.5 3.5 - 5.0 mMol/L 10/24/2023 4:48 PM EDT [facility] Chloride 94(L) 98 - 107 mMol/L 10/24/2023 4:48 PM EDT [facility] Carbon Dioxide 26 22 - 31 mMol/L 10/24/2023 4:48 PM EDT [facility] Anion Gap 11 5 - 15 mMol/L 10/24/2023 4:48 PM EDT [facility] Calcium 9.0 8.5 - 10.5 mg/dL 10/24/2023 4:48 PM EDT [facility] Est Glomerular Filtration Rate - Male 93 mL/min/1. 73 m?? 10/24/2023 4:48 PM EDT [facility] Comment: This patient's estimated GFR [...] PM EDT Rj Rizvi MD CHEMISTRY ORDERABLES [facility] [place] [address] * CT Chest w Contrast (10/24/2023 1:41 PM EDT) WORKSTATION ID [id number] RAD Anatomical Region Laterality Modality Chest Computed Tomogra phy Impressions 10/24/2023 5:21 PM EDT No metastatic disease in the chest. Thank you for letting us participate in the care of this patient. ??If you are a health care provider and have any questions regarding this report, please contact the number below. ??For patients who have questions please contact the health home care liaison that requested your imaging first. ? Electronically signed by: Mariam Johnson MD, [facility] ([phone]), at 10/24/2023 5:21 PM Narrative 10/24/2023 5:21 [...] who have questions please contactthe health home care liaison that requested your imaging first. Electronically signed by: Mariam Johnson MD, [facility]([phone]), at 10/24/2023 5:21 PM Rj Rizvi MD IMG CT ORDERABLES * (ABNORMAL) CBC (with Diff) (10/24/2023 4:11 AM EDT) White Blood Cell 5.21 4.00 - 9.50 x10(3)/mc L 10/24/2023 4:53 AM [facility] Red Blood Cell 3.79(L) 4.58 - 5.54 x10(6)/mc L 10/24/2023 4:53 AM [facility] Hemoglobin 12.3(L) 13.7 - 16.5 g/dL 10/24/2023 4:53 AM [facility] Hematocrit 34.0(L) 40.5 - 48.5 % 10/24/2023 4:53 AM [facility] Mean Cell Volume 89.7 82.9 - 93.1 fL 10/24/2023 4:53 AM [facility] Mean Cell Hemoglobin 32.5(H) 27.5 - 32.1 pg 10/24/2023 4:53 AM [facility] Mean Cell Hemoglobin Concentration 36.2(H) 32.0 - 35.7 g/dL 10/24/2023 4:53 AM [facility] Platelet 204 145 - 357 x10(3)/mc L 10/24/2023 4:53 AM [facility] Mean Platelet Volume 11.6 7.6 - 12.9 fL 10/24/2023 4:53 AM [facility] RDW Standard Deviation 44.2 36.0 - 45.0 fL 10/24/2023 4:53 AM [facility] RDW coefficient of variation 13.4 11.4 - 13.8 % 10/24/2023 4:53 AM [facility] NRBC% auto 0.0 % 10/24/2023 4:53 AM [facility] NRBC Absolute 0.00 0.00 - 0.00 x10(3)/mc L 10/24/2023 4:53 AM [facility] Neutrophil % 70.5 % 10/24/2023 4:53 AM [facility] Neutrophil Absolute (ANC) - Automated 3.68 1.70 - 6.10 x10(3)/mc L 10/24/2023 4:53 AM [facility] Lymph % 15.2 % 10/24/2023 4:53 AM [facility] Lymph Absolute 0.79(L) 0.90 - 3.20 x10(3)/mc L 10/24/2023 4:53 AM [facility] Monocyte % 10.6 % 10/24/2023 4:53 AM [facility] Monocyte Absolute 0.55 0.30 - 0.90 x10(3)/mc L 10/24/2023 4:53 AM EDT [facility] Eos % 2.5 % 10/24/2023 4:53 AM EDT [facility] Eos Absolute 0.13 0.00 - 0.40 x10(3)/mc L 10/24/2023 4:53 AM EDT [facility] Basophil % 0.6 % 10/24/2023 4:53 AM EDT [facility] Baso Absolute 0.03 0.00 - 0.10 x10(3)/mc L 10/24/2023 4:53 AM EDT [facility] Immature Gran % 0.6 % 4:53 AM EDT [facility] Immature Gran Absolute 0.03 0.00 - 0.04 x10(3)/mc L 10/24/2023 4:53 AM EDT [facility] Blood VENOUS BLOOD SPECIMEN / Unknown IP Care Team Draw / Unknown 10/24/2023 4:11 AM EDT 10/24/2023 4:43 AM EDT Rj Rizvi MD HEMATOLOGY ORDERABLE S [facility] [place] [address] * (ABNORMAL) Comprehensive metabolic panel (10/24/2023 4:11 AM EDT) Glucose 149 65 - 199 mg/dL 10/24/2023 5:55 AM EDT [facility] Comment:Glucose Concentratio n >=200 mg/dL plus symptoms is consistent with Diabetes Mellitus. Blood Urea Nitrogen 17 10 - 20 mg/dL 10/24/2023 5:55 AM EDT [facility] Creatinine 0.80 0.80 - 1.50 mg/dL 10/24/2023 5:55 AM EDT [facility] Sodium 133(L) 135 - 145 mMol/L 10/24/2023 5:55 AM EDT [facility] Potassium 3.9 3.5 - 5.0 mMol/L 10/24/2023 5:55 AM [facility] Chloride 99 98 - 107 mMol/L 10/24/2023 5:55 AM [facility] Carbon Dioxide 22 22 - 31 mMol/L 10/24/2023 5:55 AM [facility] Anion Gap 12 5 - 15 mMol/L 10/24/2023 5:55 AM [facility] Calcium 8.8 8.5 - 10.5 mg/dL 10/24/2023 5:55 AM [facility] Protein, Total 6.0(L) 6.1 - 8.0 g/dL 10/24/2023 5:55 AM [facility] Albumin 3.4 3.2 - 5.2 g/dL 10/24/2023 5:55 AM [facility] Aspartate Aminotransferase 224(H) <=39 unit/L 10/24/2023 5:55 AM [facility] Alanine Aminotransferase 498(H) 0 - 55 unit/L 10/24/2023 5:55 AM [facility] Alkaline Phosphatase 359(H) 40 - 130 unit/L 10/24/2023 5:55 AM [facility] Bilirubin, Total 7.8(H) <=1.3 mg/dL 10/24/2023 5:55 AM [facility] Est Glomerular Filtration Rate - Male 89 mL/min/1. 73 m?? 10/24/2023 5:55 AM [facility] Comment: This patient's estimated GFR was [...] AM EDT Rj Rizvi MD CHEMISTRY ORDERABLES Performing Organization Address City/[facility]/ZIP Co de Phone Number [facility] [place] [address] * Phosphorus (10/23/2023 4:27 PM EDT) Phosphorus 3.6 2.5 - 4.5 mg/dL 10/23/2023 7:35 PM EDT [facility] Blood VENOUS BLOOD SPECIMEN / Unknown IP Care Team Draw / Unknown 10/23/2023 4:27 PM EDT 10/23/2023 4:35 PM EDT Rj Rizvi MD CHEMISTRY ORDERABLES Performing Organization Address City/[facility]/ZIP Co de Phone Number [facility] [place] [address] * Magnesium (10/23/2023 4:27 PM EDT) Magnesium 0.76 0.69 - 1.07 mMol/L 10/23/2023 7:35 PM EDT [facility] Blood VENOUS BLOOD SPECIMEN / Unknown IP Care Team Draw / Unknown 10/23/2023 4:27 PM EDT 10/23/2023 4:35 PM EDT jR Rizvi MD CHEMISTRY ORDERABLES [facility] [place] [address] * (ABNORMAL) Basic Metabolic Panel (10/23/2023 4:27 PM EDT) Glucose 164 65 - 199 mg/dL 10/23/2023 [facility] Comment:Glucose Concentratio n >=200 mg/dL plus symptoms is consistent with Diabetes Mellitus. Blood Urea Nitrogen 16 10 - 20 mg/dL 10/23/2023 5:36 PM [facility] Creatinine 0.85 0.80 - 1.50 mg/dL 10/23/2023 5:36 PM [facility] Sodium 134(L) 135 - 145 mMol/L 10/23/2023 5:36 PM [facility] Potassium 2.9(LLL) 3.5 - 5.0 mMol/L 10/23/2023 5:36 PM [facility] Chloride 94(L) 98 - 107 mMol/L 10/23/2023 5:36 PM [facility] Carbon Dioxide 26 22 - 31 mMol/L 10/23/2023 5:36 PM [facility] Anion Gap 14 5 - 15 mMol/L 10/23/2023 5:36 PM [facility] Calcium 9.1 8.5 - 10.5 mg/dL 10/23/2023 5:36 PM [facility] Est Glomerular Filtration Rate - Male 87 mL/min/1. 73 m?? 10/23/2023 5:36 PM [facility] Comment: This patient's estimated GFR was [...] Biggs MD CHEMISTRY ORDERABLES Performing Organization Address City/[facility]/ZIP Co de Phone Number [facility] [place] [address] * EKG 12 Lead (10/23/2023 1:40 PM EDT) Ventricular rate 56 BPM MUSE SYSTEM Atrial Rate 56 BPM MUSE SYSTEM P-R Interval 146 ms MUSE SYSTEM QRS Duration 122 ms MUSE SYSTEM Q-T Interval 474 ms MUSE SYSTEM QTC Calculated (Bezet) 457 ms MUSE SYSTEM Calculated P [place] 46 degrees MUSE SYSTEM Calculated R [place] -59 degrees MUSE SYSTEM Calculated T [place] 43 degrees MUSE SYSTEM INTERPRETATION Sinus bradycardia with marked sinus arrhythmia Left anterior fascicular block Left ventricular hypertrophy with QRS widening ( R in aVL , Sanju product ) Possible Lateral infarct , age undetermined Abnormal ECG No previous ECGs available Confirmed by Devon Leo MD (Angel) on 10/24/2023 2:23:18 PM MUSE SYSTEM 10/23/2023 1:40 PM EDT 10/24/2023 2:23 PM EDT Leia Rincon MD ECG ORDERABLES Performing Organization Address City/[facility]/ZIP Co de Phone Number MUSE SYSTEM * ABORH RECHECK (10/23/2023 1:24 PM EDT) Pathologist [facility] ABORH Recheck O POSITIVE 10/23/2023 2:12 PM EDT [facility] Blood VENOUS BLOOD SPECIMEN / Unknown IP Care Team Draw / Unknown 10/23/2023 1:24 PM EDT 10/23/2023 1:29 PM EDT Leia Rincon MD BLOOD BANK LAB ORDER RICHELLE Performing Organization Address City/[facility]/ZIP Co de Phone Number [facility] [place] [address] * CT Abdomen & Pelvis w Contrast (10/23/2023 1:10 PM EDT) WORKSTATION ID [id number] [facility] Anatomical Region Laterality Modality Abdomen, Pelvis Computed [...] have questions please contact the health home care liaison that requested your imaging first. ? Electronically signed by: Davy Sinclair MD, [facility] ([phone]), at 10/23/2023 1:26 PM Narrative 10/23/2023 1:26 [...] who have questions please contactthe health home care liaison that requested your imaging first. Electronically signed by: Davy Sinclair MD, [facility]([phone]), at 10/23/2023 1:26 PM Leia Rincon MD IM CT ORDERABLES * (ABNORMAL) CBC (with Diff) (10/23/2023 12:32 PM EDT) White Blood Cell 4.60 4.00 - 9.50 x10(3)/mc L 10/23/2023 1:17 PM EDT [facility] Red Blood Cell 4.00(L) 4.58 - 5.54 x10(6)/mc L 10/23/2023 1:17 PM EDT [facility] Hemoglobin 13.1(L) 13.7 - 16.5 g/dL 10/23/2023 1:17 PM EDT [facility] Hematocrit 36.2(L) 40.5 - 48.5 % 10/23/2023 1:17 PM EDT [facility] Mean Cell Volume 90.5 82.9 - 93.1 fL 10/23/2023 1:17 PM [facility] Mean Cell Hemoglobin 32.8(H) 27.5 - 32.1 pg 10/23/2023 1:17 PM [facility] Mean Cell Hemoglobin Concentration 36.2(H) 32.0 - 35.7 g/dL 10/23/2023 1:17 PM [facility] Platelet 233 145 - 357 x10(3)/mc L 10/23/2023 1:17 PM [facility] Mean Platelet Volume 11.4 7.6 - 12.9 fL 10/23/2023 1:17 PM [facility] RDW Standard Deviation 43.7 36.0 - 45.0 fL 10/23/2023 1:17 PM [facility] RDW coefficient of variation 13.2 11.4 - 13.8 % 10/23/2023 1:17 PM [facility] NRBC% auto 0.0 % 10/23/2023 1:17 PM [facility] NRBC Absolute 0.00 0.00 - 0.00 x10(3)/mc L 10/23/2023 1:17 PM [facility] Neutrophil % 70.4 % 10/23/2023 1:17 PM [facility] Neutrophil Absolute (ANC) - Automated 3.24 1.70 - 6.10 x10(3)/mc L 10/23/2023 1:17 PM [facility] Lymph % 15.4 % 10/23/2023 1:17 PM [facility] Lymph Absolute 0.71(L) 0.90 - 3.20 x10(3)/mc L 10/23/2023 1:17 PM [facility] Monocyte % 10.0 % 10/23/2023 1:17 PM [facility] Monocyte Absolute 0.46 0.30 - 0.90 x10(3)/mc L 10/23/2023 1:17 PM EDT [facility] Eos % 2.6 % 10/23/2023 1:17 PM EDT [facility] Eos Absolute 0.12 0.00 - 0.40 x10(3)/mc L 10/23/2023 1:17 PM EDT [facility] Basophil % 0.9 % 10/23/2023 1:17 PM EDT [facility] Baso Absolute 0.04 0.00 - 0.10 x10(3)/mc L 10/23/2023 1:17 PM EDT [facility] Immature Gran % 0.7 % 1:17 PM EDT [facility] Immature Gran Absolute 0.03 0.00 - 0.04 x10(3)/mc L 10/23/2023 1:17 PM EDT [facility] Blood VENOUS BLOOD SPECIMEN / Unknown Venipuncture / Unknown 10/23/2023 12:32 PM EDT 10/23/2023 12:41 PM EDT Leia Rincon MD HEMATOLOGY ORDERABLE S [facility] [place] [address] * Type and screen ([facility]/Romeo/FREDY) (10/23/2023 12:32 PM EDT) ABORH Type O POSITIVE 10/23/2023 1:31 PM EDT [facility] PATIENT HISTORY Not Found 10/23/2023 1:31 PM EDT [facility] Expires at [id number] on: 10-26-2023 10/23/2023 1:31 PM EDT [facility] ANTIBODY SCREEN AUTOMATED Negative 10/23/2023 1:31 PM EDT [facility] T&S only valid at [facility] 10/23/2023 1:31 PM EDT [facility] Blood VENOUS BLOOD SPECIMEN / Unknown Venipuncture / Unknown 10/23/2023 12:32 PM EDT 10/23/2023 12:37 PM EDT Narrative [facility] - 10/23/2023 1:31 PM EDT This Type and Screen result is only valid at the [facility] Leia Rincon MD BLOOD BANK LAB ORDER RICHELLE [facility] [place] [address] * Lipase (10/23/2023 12:32 PM EDT) Pathologist [facility] Lipase 49 0 - 60 unit/L 10/23/2023 1:11 PM EDT [facility] Blood VENOUS BLOOD SPECIMEN / Unknown Venipuncture / Unknown 10/23/2023 12:32 PM EDT 10/23/2023 12:41 PM EDT Leia Rincon MD CHEMISTRY ORDERABLES [facility] [place] [address] * (ABNORMAL) Comprehensive metabolic panel (10/23/2023 12:32 PM EDT) Pathologist [facility] Glucose 186 65 - 199 mg/dL 10/23/2023 1:13 PM EDT [facility] Comment:Glucose Concentratio n >=200 mg/dL plus symptoms is consistent with Diabetes Mellitus. Blood Urea Nitrogen 17 10 - 20 mg/dL 10/23/2023 1:13 PM EDT [facility] Creatinine 0.79(L) 0.80 - 1.50 mg/dL 10/23/2023 1:13 PM EDT [facility] Sodium 130(L) 135 - 145 mMol/L 10/23/2023 1:13 PM EDT [facility] Potassium 2.9(LLL) 3.5 - 5.0 mMol/L 10/23/2023 1:13 PM EDT [facility] Chloride 92(L) 98 - 107 mMol/L 10/23/2023 1:13 PM [facility] Carbon Dioxide 24 22 - 31 mMol/L 10/23/2023 1:13 PM [facility] Anion Gap 14 5 - 15 mMol/L 10/23/2023 1:13 PM [facility] Calcium 9.1 8.5 - 10.5 mg/dL 10/23/2023 1:13 PM [facility] Protein, Total 6.5 6.1 - 8.0 g/dL 10/23/2023 1:13 PM [facility] Albumin 3.8 3.2 - 5.2 g/dL 10/23/2023 1:13 PM [facility] Aspartate Aminotransferase 258(H) <=39 unit/L 10/23/2023 1:13 PM [facility] Alanine Aminotransferase 577(H) 0 - 55 unit/L 10/23/2023 1:13 PM [facility] Alkaline Phosphatase 375(H) 40 - 130 unit/L 10/23/2023 1:13 PM [facility] Bilirubin, Total 8.6(H) <=1.3 mg/dL 10/23/2023 1:13 PM [facility] Est Glomerular Filtration Rate - Male 89 mL/min/1. 73 m?? 10/23/2023 1:13 PM [facility] Comment: This patient's estimated GFR was [...] PM EDT Leia Rincon MD CHEMISTRY ORDERABLES [facility] [place] [address] documented in this encounter Visit Diagnoses Diagnosis Hypokalemia- Primary Hypopotassemia Jaundice Jaundice, unspecified, not of Pancreatic mass Unspecified disease of pancreas Hypokalemia Hypopotassemia Painless jaundice Malignant neoplasm of prostate Painless jaundice Malignant neoplasm of head of pancreas documented in this encounter Admitting Diagnoses Diagnosis [...] 3 mg, Oral, NIGHTLY PRN, Starting on Wed10/23/23 at 2028, Until Wed10/27/23 at 1717, Sleep, [...] 4 mg, Intravenous, ONCE, 1 dose, On Wed10/23/23 at 1330, STAT Given 10/23/2023 1:37 PM EDT 4 mg ondansetron (pf) (Zofran) (2 mg/mL) injection 4 mg 4 mg, Intravenous, EVERY 8 HOURS PRN, Starting on Wed10/23/23 at 2028, Until Wed10/27/23 at 1717, Nausea, [...] EVERY HOUR, 6 doses, First dose on Wed10/23/23 at 1900, Last dose on Wed10/24/23 at [...] 10 mmol, Intravenous, ONCE, 1 dose, On Wed10/23/23 at 1410, Administer over 4 Hours, Administer [...] 0942 (New Bag - Provider: Rosemary Guzmán, RN)1142 (Stopped - Provider: Rosemary Guzmán, CARISSA) montelukast (Singulair) tablet 5 mg 5 mg, Oral, NIGHTLY, First dose on 10/23/23 at 2100, Until Discontinued, Routine 1337 (MAR Hold - Provider: Admin Adt - Reason: Transfer to a Procedural area)1725 (MAR Unhold - Provider: Admin Adt)2057 (Given - Provider: Vanesa Vance RN) 2133 (Given - Provider: Peter Dixon, RN) polyethylene glycoL (Miralax) packet 17 g 17 g, Oral, DAILY, First dose on Wed10/26/23 at 2100, Until Discontinued, Routine 2133 (Given - Provider: Peter Dixon, CARISSA) potassium chloride ER (Klor-Con M) crystal tablet [...] CARISSA)2134 (Given - Provider: Peter Dixon, CARISSA) 08 (Given - Provider: Rosemary Guzmán, CARISSA) tamsulosin (Flomax) capsule 0.4 mg 0.4 mg, Oral, NIGHTLY, First dose (after last modification) on Wed10/23/23 at 2115, Until Discontinued, DO NOT CRUSH OR CHEW, Routine 1337 (MAR Hold - Provider: Admin Adt - Reason: Transfer to a Procedural area)1726 (MAR Unhold - Provider: Admin Adt)2056 (Given - Provider: Vanesa Vance RN) 2134 (Given - Provider: Peter Dixon, CARISSA) Continuous Medication Order 10/25/2023 10/26/2023 10/27/2023 lactated ringers infusion (CANCELED) 100 mL/hr, Intravenous, CONTINUOUS, Starting on Wed10/25/23 at 1400, Until Wed10/26/23 at 0826 1343 (New Bag - Provider: Alethea Barnes RN) 0826 (Stopped - Provider: Rosemary Guzmán RN) PRN Medication Order 10/25/2023 10/26/2023 10/27/2023 [...] - Reason: Transfer to a Procedural area)172 (APR Unhold - Provider: Admin Adt)2057 (Given - Provider: Vanesa Vance, CARISSA) 2133 (Given - Provider: Peter Dixon RN) ondansetron (pf) (Zofran) (2 mg/mL) injection 4 mg(Linked Group 1) 4 mg, Intravenous, EVERY 8 HOURS PRN, Starting on 10/23/23 at 2027, Until Wed10/27/23 at 1717, Nausea, 4 mg,Oral,EVERY 8 HOURS PRN, Nausea,Vomiting If multiple antiemetics are ordered, use ondansetron first. May repeat times one in 30 minutes if ineffective. 1337 (APR Hold - Provider: Admin Adt [...] Admin Adt) 1411 (Given - Provider: Rosemary Guzmán RN) oxyCODONE (Roxicodone) tablet 5 mg 5 mg, [...] ineffective. documented in this encounter Care Teams Project Management Analyst Relationship Specialty Start Date End Date Jez Vance MD [address] [place] [address] PCP - General 01/07/10 documented as of this encounter
--- OUTSIDE RECORDS SUMMARY | 2023-12-03 01:12 | XMS_ITS | Encounter Summary ---
Author Organization [facility] Address [facility] [place] [address] Care Team Providers Care Family Service Worker Name Role Phone Jez Vance MD Primary Care Provider [phone] Encounter Details Date Type Department Care Team (Late st Contact Info) Description 10/28/2023 Orders Only [place] [address] Andrew Reynoso MD [facility] [place] [address] Social History Tobacco Use Types Packs/Day Years Used Date Smoking Tobacco: Never Smokeless Tobacco: Never Alcohol Use Standard Drinks/Week Comments Yes 1 (1 standard drink = 0.6 oz pur e alcohol) social drinker once a month [facility] Utilities Answer Date Recorded In the past 12 months has [employer], gas, oil, or water [employer] threatened to shut off services in your [...] any time in the past 12 m [facility], were you homeless or living in a half-way (including now)? No 10/25/2023 DH IPV Inpatient [...] 8:00 AM EDT Office Visit Hematology/Oncology at [address] [phone] Antonio Brownlee MD [facility] [place] [address] [address] HEMATOLOGY AND ONCOLOGY [place], [place] [address] 12/03/2023 8:30 AM EDT Infusion Hematology Oncology at [address] [phone] 12/03/2023 9:00 AM EDT Clinical Support Hematology/Oncology at [address] [phone] [facility] DR [place] [address] 12/17/2023 8:30 AM EDT Office Visit Hematology/Oncology at [address] [phone] Antonio Brownlee MD [facility] [place] [address] [address] HEMATOLOGY AND ONCOLOGY [place], [place] [id number] 12/17/2023 9:00 AM EDT Infusion Hematology Oncology at [address] [phone] 12/30/2023 9:00 AM EST Office Visit Hematology/Oncology at [address] [phone] Antonio Brownlee MD [facility] [place] [address] HEMATOLOGY AND ONCOLOGY [place], [place] [address] 12/30/2023 9:30 AM EST Infusion Hematology Oncology at [address] [phone] documented as of this encounter Visit Diagnoses Not on filedocumented in this encounter Care Teams Family Service Worker Relationship Specialty Start Date End Date Jez Vance MD [address] [place] [address] PCP - General 01/07/10 documented as of this encounter
--- OUTSIDE RECORDS SUMMARY | 2023-12-03 01:12 | XMS_ITS | Encounter Summary ---
Author Organization [facility] Address [facility] [place] [address] Care Team Providers Care Net Coordinator Name Role Phone Jez Vance MD Primary Care Provider [phone] Encounter Details Date Type Department Care Team [...] from your doctor or pharmacy? Never 11/04/2023 [facility] Utilities Answer Date Recorded In [...] in a chcf (including now)? No 11/04/2023 DH IPV Inpatient [...] 8:00 AM EDT Office Visit Hematology/Oncology at [address] [phone] Antonio Bronwlee MD [facility] [place] [address] Fani Haskins APRN [address] [place] [address] DR HEMATOLOGY AND ONCOLOGY [place], [place] [id number] 12/03/2023 8:30 AM EDT Infusion Hematology Oncology at [address] [phone] 12/03/2023 9:00 AM EDT Clinical Support Hematology/Oncology at [address] [phone] [facility] DR [place] [address] 12/17/2023 8:30 AM EDT Office Visit Hematology/Oncology at [address] [phone] Antonio Brownlee MD [facility] [place] [address] Fani Haskins [address] HEMATOLOGY AND ONCOLOGY [place], [place] [phone] 12/17/2023 9:00 AM EDT Infusion Hematology Oncology at [address] [phone] 12/30/2023 9:00 AM EST Office Visit Hematology/Oncology at [address] [phone] Antonio Brownlee MD [facility] [place] [address] Fani H[address] HEMATOLOGY AND ONCOLOGY [place], [place] [phone] 12/30/2023 9:30 AM EST Infusion Hematology Oncology at [address] [phone] documented as of this encounter Visit Diagnoses Not on filedocumented in this encounter Care Teams Net Coordinator Relationship Specialty Start Date End Date Jez Vance MD [address] [place] [address] PCP - General 01/07/10 documented as of this encounter
--- OUTSIDE RECORDS SUMMARY | 2023-12-03 01:12 | XMS_ITS | Encounter Summary ---
Author Organization [facility] Address [facility] [place] [address] Care Team Providers Care Salt Washer Name Role Phone Jez Vance MD Primary Care Provider [phone] Encounter Details Date Type Department Care Team [...] from your doctor or pharmacy? Never 11/04/2023 [facility] Utilities Answer Date Recorded In the [...] living in a usp (including now)? No 11/04/2023 DH IPV Inpatient [...] AM EDT Office Visit Hematology/Oncology at [address] [phone] Antonio Brownlee MD [facility] [place] [address] Fani Haskins APRN [address] [place] [address] DR HEMATOLOGY AND ONCOLOGY [place], [place] [phone] 12/03/2023 8:30 AM EDT Infusion Hematology Oncology at [address] [phone] 12/03/2023 9:00 AM EDT Clinical Support Hematology/Oncology at [address] [phone] [facility] DR HEMATOLOGY [place] [address] 12/17/2023 8:30 AM EDT Office Visit Hematology/Oncology at [address] [phone] Antonio Brownlee MD [facility] [place] [address] [address]ins [address] HEMATOLOGY AND ONCOLOGY [place], [place] [phone] 12/17/2023 9:00 AM EDT Infusion Hematology Oncology at [address] [phone] 12/30/2023 9:00 AM EST Office Visit Hematology/Oncology at [address] [phone] Antonio Brownlee MD [facility] [place] [address] [address] HEMATOLOGY AND ONCOLOGY [place], [place] [phone] 12/30/2023 9:30 AM EST Infusion Hematology Oncology at [address] [phone] documented as of this encounter Visit Diagnoses Not on filedocumented in this encounter Care Teams Salt Washer Relationship Specialty Start Date End Date Jez Vance MD [address] [place] [address] PCP - General 01/07/10 documented as of this encounter
--- OUTSIDE RECORDS SUMMARY | 2023-12-03 01:12 | XMS_ITS | Encounter Summary ---
Author Organization [facility] Address [facility] [place] [address] Care Team Providers Care Hydrometer Tester Name Role Phone Jez Vance MD Primary Care Provider [phone] Reason for Visit * Surgical (Routine) - Closed Specialty Diagnoses / Procedures Referred By Deena yao Referred To Contact General Surgery Diagnoses Malignant neoplasm of prostate Ros Gonzáles MD [facility] [place] [address] [facility] [address] [place] [address] Referral ID Status Reason Start Date Expiration Date V isits Requested Visits Authorized [id number] Closed Consult, Test & Treat 10/28/2023 10/27/2024 1 1 Encounter Details Date Type Department Care Team (Late st Contact Info) Description 11/09/2023 9:30 AM EDT Office [place] [address] Carmen Obrien MD [facility] [place] [address] Malignant neoplasm of head of [...] your doctor or pharmacy? Never 11/04/2023 [facility] Utilities Answer Date Recorded In [...] time in the past 12 m [facility], were you homeless or living [...] Mr. Jones is an 83-year-old man from [place], [place]. He presented to his primary care physician with nausea, fatigue and progressive jaundice symptoms. A workup was initiated with ultrasound suggesting possible mass in the pancreas with obstructed dilated intrahepatic and extrahepatic bile ducts. MRI was ordered though awaiting scheduling he felt progressively unwell and with worsening jaundice and presented to [facility]. His workup and hospital admission are [...] systems: A comprehensive ROS questionnaire (scanned into [facility]) was completed by the patient - pertinent [...] will be scheduled this 11/12/2023 at the [facility] He is eager to have the other pancreas tumor clinic evaluations with Byron Storey and Dr. Brownlee who is [id number]'s oncologist for metastatic colon cancer. Time Spent With Patient: 60 minutes of this 80 minute visit were spent in [id number] discussion and counseling the patient as detailed above. documented in this encounter Plan of Treatment Upcoming Encounters Date Type Department Care Team (Late st Contact Info) Description 12/03/2023 8:00 AM EDT Office Visit Hematology/Oncology at [address] [phone] Antonio Brownlee MD [facility] [place] [address] Fani Haskins [address] HEMATOLOGY AND ONCOLOGY [place], [place] [address] 12/03/2023 8:30 AM EDT Infusion Hematology Oncology at [address] [phone] 12/03/2023 9:00 AM EDT Clinical Support Hematology/Oncology at [address] [phone] [facility] HEMATOLOGY [place] [address] 12/17/2023 8:30 AM EDT Office Visit Hematology/Oncology at [address] [phone] Antonio Brownlee MD [facility] [place] [address] Fani Haskins [address] HEMATOLOGY [place] [address] 12/17/2023 9:00 AM EDT Infusion Hematology Oncology at [address] [phone] 12/30/2023 9:00 AM EST Office Visit Hematology/Oncology at [address] [phone] Antonio Brownlee MD [facility] [place] [address] Fani Haskins APRN [address] [place] [address] DR HEMATOLOGY AND ONCOLOGY [place], [place] [phone] 12/30/2023 9:30 AM EST Infusion Hematology Oncology at [address] [phone] Scheduled Referrals Name Type Priority Associated Diagnoses Orde r Schedule Referral to General Surgery Outpatient Referral Routine Malignant neoplasm of prostate Ordered: 10/28/2023 documented as of this encounter Visit Diagnoses Diagnosis 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
--- OUTSIDE RECORDS SUMMARY | 2023-12-03 01:12 | XMS_ITS | Encounter Summary ---
Author Organization [facility] Address [facility] Kody [place] [address] Care Team Providers Care Tariff Clerk Name Role Phone Jez Vance MD Primary Care Provider +1 [phone] Encounter Details Date Type Department Care Team (Late st Contact Info) Description 10/25/2023 Notes [place] [address] Patrizia Bassett Social History Tobacco Use Types Packs/Day Years Used Date Smoking Tobacco: Never Smokeless Tobacco: Never Alcohol Use Standard Drinks/Week Comments Yes 1 (1 standard drink = 0.6 oz pur e alcohol) social drinker once a month [facility] Utilities Answer Date Recorded In the past [...] any time in the past 12 m [facility], were you homeless or living in a longterm (including now)? No 10/25/2023 IPV Inpatient Questions [...] PI: Kamari Esquivel MD MS Velos # [id number] Objective of visit: Patrizia Rogel , research coordinator, and Dr. Reynoso met with Benny Zurita in [facility] to provide information regarding protocol [id number], answer questions or concerns about study plan, [...] answer any medical related questions if applicable. Bneny Zurita inquired if being in the study [...] will continue to be screened on study [id number] to determine if patient meets criteria during [...] AM EDT Office Visit Hematology/Oncology at [address] [phone] Antonio Brownlee MD [facility] [address] [address] HEMATOLOGY AND ONCOLOGY [place], [place] [phone] 12/03/2023 8:30 AM EDT Infusion Hematology Oncology at [address] [phone] 12/03/2023 9:00 AM EDT Clinical Support Hematology/Oncology at [address] [phone] [facility] DR [place] [address] 12/17/2023 8:30 AM EDT Office Visit Hematology/Oncology at [address] [phone] Antonio Brownlee MD [facility] [place] [address] Fani Haskins, [address] HEMATOLOGY AND ONCOLOGY [place], [place] [address] 12/17/2023 9:00 AM EDT Infusion Hematology Oncology at [address] [phone] 12/30/2023 9:00 AM EST Office Visit Hematology/Oncology at [address] [phone] Antonio Brownlee MD [facility] [place] [address] Fani Haskins APRN [address] [place] [address] DR HEMATOLOGY AND ONCOLOGY [place], [place] [address] 12/30/2023 9:30 AM EST Infusion Hematology Oncology at [address] [phone] documented as of this encounter Visit Diagnoses Not on filedocumented in this encounter Care Teams Tariff Clerk Relationship Specialty Start Date End Date Jez Vance MD [address] [place], [place] [address] PCP - General 01/07/10 documented as of this encounter
--- OUTSIDE RECORDS SUMMARY | 2023-12-03 01:12 | XMS_ITS | Encounter Summary ---
Author Organization [facility] [place] [address] Care Team Providers Care Centrifugal Supervisor Name Role Phone Jez Vance MD Primary Care Provider +1 [phone] Encounter Details Date Type Department Care Team (Late st Contact Info) Description 11/08/2023 Orders Only Hematology [place] [address] [facility] [address] Malignant neoplasm of head of pancreas; Malignant [...] doctor or pharmacy? Never 11/04/2023 [facility] Utilities Answer Date Recorded In the [...] any time in the past 12 m [facility], were you homeless or living in a detention (including now)? No 11/04/2023 IPV Inpatient Questions [...] AM EDT Office Visit Hematology/Oncology at [address] [phone] Antonio Brownlee MD [facility] [place] [address] [address] HEMATOLOGY AND ONCOLOGY [place], [place] [address] 12/03/2023 8:30 AM EDT Infusion Hematology Oncology at [address] [phone] 12/03/2023 9:00 AM EDT Clinical Support Hematology/Oncology at [address] [phone] [facility] DR HEMATOLOGY [place] [address] 12/17/2023 8:30 AM EDT Office Visit Hematology/Oncology at [address] [phone] Antonio Brownlee MD [facility] [place] [address] [address] HEMATOLOGY AND ONCOLOGY [place], [place] [phone] 12/17/2023 9:00 AM EDT Infusion Hematology Oncology at [address] [phone] 12/30/2023 9:00 AM EST Office Visit Hematology/Oncology at [address] [phone] Antonio Brownlee MD [facility] [place] [address] F[address] HEMATOLOGY [place] [address] 12/30/2023 9:30 AM EST Infusion Hematology Oncology at [address] [phone] Pending Results Name Type Priority Associated Diagnoses [...] pancreas documented in this encounter Care Teams Centrifugal Supervisor Relationship Specialty Start Date End Date Jez Vance MD [address] [place] [address] PCP - General 01/07/10 documented as of this encounter
--- OUTSIDE RECORDS SUMMARY | 2023-12-03 01:12 | XMS_ITS | Encounter Summary ---
Author Organization [facility] [place] [address] Care Team Providers Care Fractionating Still Operator Name Role Phone Jez Vance MD Primary Care Provider +1 [phone] Reason for Visit * Auth/Cert (Routine) Specialty Diagnoses / Procedures Referred By Deena yao Referred To Contact Diagnoses Cholestatic liver disease Rj Rizvi MD [facility] [place] [address] [facility] Referral ID Status Reason Start Date Expiration Date Visits Re quested Visits Authorized [id number] 1 1 Encounter Details Date Type Department Care Team (Late st Contact Info) Description 10/25/2023 2:39 PM EDT Anesthesia [place] [address] Kenyatta Sarmiento MD [facility] [place] [address] Francisca Hernández MD [facility] [place] [address] Anesthesia Record Procedure Summary Procedure Name Responsible [...] Type Details Placement Removal PIV 10/23/23; 1235; fhlf-mfm-xwverz catheter system; 18 gauge; median cubital vein [...] social drinker once a month [facility] Utilities Answer Date Recorded In the [...] any time in the past 12 m [facility], were you homeless or living in a fci (including now)? No 10/25/2023 IPV Inpatient Questions [...] Procedure Summary Date: 10/25/23 Room / Location: [facility] ENDO 3 / [facility] ENDOSCOPY Anesthesia Start: 1439 Anesthesia Stop: 163 [...] All Anesthesia Providers: Anesthesiologist: Kenyatta Sarmiento MD SURG TECH: Pascale Zuniga CRNA Vitals Value Taken Time BP 118/63 10/25/23 1710 Temp Pulse Resp 16 10/25/23 1710 SpO2 98 % 10/25/23 1712 Pain Level 2 10/25/23 1720 Vitals shown include unfiled device data. Patient Location: PACU/[facility] Level of Consciousness: Awake and Alert Pain [...] with patient. Plan discussed with attending and SURG TECH. Anesthesia Screening documented in this encounter Plan of Treatment Upcoming Encounters Date Type Department Care Team (Late st Contact Info) Description 12/03/2023 8:00 AM EDT Office Visit Hematology/Oncology at [address] [phone] Antonio Brownlee MD [facility] [place] [place] [address] Fani Haskins APRN [address] [place] [address] DR HEMATOLOGY AND ONCOLOGY [place], [place] [phone] 12/03/2023 8:30 AM EDT Infusion Hematology Oncology at [address] [phone] 12/03/2023 9:00 AM EDT Clinical Support Hematology/Oncology at [address] [phone] [facility] DR HEMATOLOGY [place] [address] 12/17/2023 8:30 AM EDT Office Visit Hematology/Oncology at [address] [phone] Antonio Brownlee MD [facility] [place] [address] [address] HEMATOLOGY AND ONCOLOGY [place], [place] [phone] 12/17/2023 9:00 AM EDT Infusion Hematology Oncology at [address] [phone] 12/30/2023 9:00 AM EST Office Visit Hematology/Oncology at [address] [phone] Antonio Brownlee MD [facility] [place] [address] HEMATOLOGY AND ONCOLOGY [place], [place] [address] 12/30/2023 9:30 AM EST Infusion Hematology Oncology at [address] [phone] documented as of this encounter Visit Diagnoses [...] mg documented in this encounter Care Teams Fractionating Still Operator Relationship Specialty Start Date End Date Jez Vance MD [address] [place] [address] PCP - General 01/07/10 documented as of this encounter
--- OUTSIDE RECORDS SUMMARY | 2023-12-03 01:12 | XMS_ITS | Encounter Summary ---
Author Organization [facility] Address [facility] [place] [address] Care Team Providers Care Golf Club Weighter Name Role Phone Jez Vance MD Primary Care Provider [phone] [phone] Reason for Visit * Consultation (Routine) - Closed Specialty Diagnoses / Procedures Referred By Deena yao Referred To Contact Hematology and Oncology Diagnoses Pancreatic mass Painless jaundice Malignant neoplasm of prostate Ros Gonzáles MD [facility] [place] [address] [facility] Hem Onc [address] [place] [address] Referral ID Status Reason Start Date Expiration Date V isits Requested Visits Authorized [id number] Closed Consult, Test & Treat 10/26/2023 10/25/2024 1 1 Encounter Details Date Type Department Care Team (Latest Contact Info) Description 11/09/2023 11:00 AM EDT Office Visit Hematology [place] [address] Antonio Bowie MD [facility] [place] [address] Malignant neoplasm of head of pancreas; Exocrine [...] from your doctor or pharmacy? Never 11/04/2023 [facility] Utilities Answer Date Recorded In [...] time in the past 12 m [facility], were you homeless or living in a custodial (including now)? No 11/04/2023 DH IPV Inpatient [...] prostate cancer (Stage IIC: cT1c, cN0, cM0; [place] 4+4, PSA 11.9 S/p radiation, completed in [...] active buttires easily. 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 He was given [...] meet with our genetic counselor and Clinical Carbon Electrodes Supervisor, Estrella Tompkins today. Consueloll plan to start [...] 8:00 AM EDT Office Visit Hematology/Oncology at [address] [phone] Antonio Bowie MD [facility] [place] [address] [address] HEMATOLOGY AND ONCOLOGY [place], [place] [address] 12/03/2023 8:30 AM EDT Infusion Hematology Oncology at [address] [phone] 12/03/2023 9:00 AM EDT Clinical Support Hematology/Oncology at [address] [phone] [facility] [place] [address] 12/17/2023 8:30 AM EDT Office Visit Hematology/Oncology at [address] [phone] Antonio Bowie MD [facility] [place] [address] [address] HEMATOLOGY AND ONCOLOGY [place], [place] [address] 12/17/2023 9:00 AM EDT Infusion Hematology Oncology at [address] [phone] 12/30/2023 9:00 AM EST Office Visit Hematology/Oncology at [address] [phone] Antonio Bowie MD [facility] [place] [address] [address] HEMATOLOGY AND ONCOLOGY [place], [place] [address] 12/30/2023 9:30 AM EST Infusion Hematology Oncology at [address] [phone] Scheduled Orders Name Type Priority [...] PGx Oncology (11/09/2023 12:35 PM EDT) Pathologist [facility] NGS Report Status Abnormal(A ) 11/17/2023 9:14 AM EDT [facility] Blood VENOUS BLOOD SPECIMEN / Unknown Venipuncture / Unknown 11/09/2023 12:35 PM EDT 11/09/2023 12:36 PM EDT Antonio Bowie MD MOLECULAR ORDERABLES Performing Organization Address City/[facility]/ZIP Co de Phone Number [facility] [place] [address] * (ABNORMAL) Carbohydrate Antigen 19-9 (11/09/2023 12:35 PM EDT) Pathologist [facility] CA 19-9 110.0(H) <=35.0 units/mL 11/09/2023 1:35 PM EDT [facility] Comment:This result was gene rated using a Doreen Danis immunoassay. Results obtained from other methods or manufacturers cannot be used interchangeably with this method. Blood VENOUS BLOOD SPECIMEN / Unknown Venipuncture / Unknown 11/09/2023 12:35 PM EDT 11/09/2023 12:36 PM EDT Antonio Bowie MD CHEMISTRY ORDERABLES [facility] [place] [address] * (ABNORMAL) Comprehensive metabolic panel Non-fasting (11/09/2023 [...] MD CHEMISTRY ORDERABLES [facility] [place] [address] * (ABNORMAL) CBC (with Diff) (11/09/2023 12:35 PM EDT) White Blood Cell 7.04 4.00 - 9.50 x10(3)/mc L 11/09/2023 1:00 PM EDT [facility] Red Blood Cell 3.81(L) 4.58 - 5.54 x10(6)/mc L 11/09/2023 1:00 PM EDT [facility] Hemoglobin 12.5(L) 13.7 - 16.5 g/dL 11/09/2023 1:00 PM EDT [facility] Hematocrit 36.5(L) 40.5 - 48.5 % 11/09/2023 1:00 PM [facility] Mean Cell Volume 95.8(H) 82.9 - 93.1 fL 11/09/2023 1:00 PM [facility] Mean Cell Hemoglobin 32.8(H) 27.5 - 32.1 pg 11/09/2023 1:00 PM [facility] Mean Cell Hemoglobin Concentration 34.2 32.0 - 35.7 g/dL 11/09/2023 1:00 PM [facility] Platelet 256 145 - 357 x10(3)/mc L 11/09/2023 1:00 PM [facility] Mean Platelet Volume 10.7 7.6 - 12.9 fL 11/09/2023 1:00 PM [facility] RDW Standard Deviation 44.8 36.0 - 45.0 fL 11/09/2023 1:00 PM [facility] RDW coefficient of variation 12.8 11.4 - 13.8 % 11/09/2023 1:00 PM [facility] NRBC% auto 0.0 % 11/09/2023 1:00 PM [facility] NRBC Absolute <0.01 <0.01 x10(3)/mc L 11/09/2023 1:00 PM [facility] Neutrophil % 74.7 % 11/09/2023 1:00 PM [facility] Neutrophil Absolute (ANC) - Automated 5.26 1.70 - 6.10 x10(3)/mc L 11/09/2023 1:00 PM [facility] Lymph % 14.9 % 11/09/2023 1:00 PM [facility] Lymph Absolute 1.05 0.90 - 3.20 x10(3)/mc L 11/09/2023 1:00 PM 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
--- OUTSIDE RECORDS SUMMARY | 2023-12-03 01:12 | XMS_ITS | Encounter Summary ---
[place] [address] Care Team Providers Care Pottery Machine Operator Name Role Phone Jez Vance MD Primary Care Provider [phone] [phone] Reason for Visit * Auth/Cert (Routine) Specialty Diagnoses / Procedures Referred By Deena yao Referred To Contact Diagnoses Cholestatic liver [place] [address] [facility] Referral ID Status Reason Start Date Expiration Date Visits Re quested Visits Authorized [id number] 1 1 Encounter Details Date Type Department Care Team (Late st Contact Info) Description 10/25/2023 1:55 PM EDT Ancillary Procedure [place] [phone] Social History Tobacco Use Types Packs/Day Years Used Date Smoking Tobacco: Never Smokeless Tobacco: Never Alcohol Use Standard Drinks/Week Comments Yes 1 (1 standard drink = 0.6 oz pur e alcohol) social drinker once a month [facility] Utilities Answer Date Recorded In [...] in a fci (including now)? No 10/25/2023 DH IPV Inpatient [...] 8:00 AM EDT Office Visit Hematology/Oncology at [address] [phone] Antoino Brownlee MD [facility] [place] [address] HEMATOLOGY AND ONCOLOGY [place], [place] [address] 12/03/2023 8:30 AM EDT Infusion Hematology Oncology at [address] [phone] 12/03/2023 9:00 AM EDT Clinical Support Hematology/Oncology at [address] [phone] [facility] DR [place]AT[place] [address] 12/17/2023 8:30 AM EDT Office Visit Hematology/Oncology at [address] [phone] Antonio Brownlee MD [facility] [place] [address] [address] HEMATOLOGY AND ONCOLOGY [place], [place] [address] 12/17/2023 9:00 AM EDT Infusion Hematology Oncology at [address] [phone] 12/30/2023 9:00 AM EST Office Visit Hematology/Oncology at [address] [phone] Antonio Brownlee MD [facility] [place] [address] Fani Haskins [address] [place] [address] 12/30/2023 9:30 AM EST Infusion Hematology Oncology at [address] [phone] documented as of this encounter Procedures Procedure Name Priority Date/Time Associated Diagnosis Comments XR ERCP Routine 10/25/2023 4:40 PM EDT documented in this encounter Results * XR ERCP (10/25/2023 4:40 PM EDT) Narrative RAD - 10/25/2023 4:45 PM EDT See PACS for result report. Ros Gonzáles MD IM FILM LIBRARY ORD ERABLES [place], [place] documented in this encounter Visit Diagnoses Not on filedocumented in this encounter Care Teams Pottery Machine Operator Relationship Specialty Start Date End Date Jez Vance MD [address] [place] [address] PCP - General 01/07/10 documented as of this encounter
--- OUTSIDE RECORDS SUMMARY | 2023-12-03 01:13 | XMS_ITS | Encounter Summary ---
Author Organization [facility] Address [facility] [place] [address] Care Team Providers Care Wind Operations Supervisor Name Role Phone Jez Vance MD Primary Care Provider [phone] [phone] Encounter Details Date Type Department Care Team [...] AM EDT Office Visit Hematology/Oncology at [address] [phone] Antonio Brownlee MD [facility] [address] [address] HEMATOLOGY AND ONCOLOGY [place], [place] [address] 12/03/2023 8:30 AM EDT Infusion Hematology Oncology at [address] [phone] 12/03/2023 9:00 AM EDT Clinical Support Hematology/Oncology at [address] [phone] [facility] DR [place] [address] 12/17/2023 8:30 AM EDT Office Visit Hematology/Oncology at [address] [phone] Antonio Brownlee MD [facility] [address] [address] HEMATOLOGY AND ONCOLOGY [place], [place] [address] 12/17/2023 9:00 AM EDT Infusion Hematology Oncology at [address] [phone] 12/30/2023 9:00 AM EST Office Visit Hematology/Oncology at [address] [phone] Antonio Brownlee MD [facility] [address] Fani Haskins APRN [address] [place] [address] DR HEMATOLOGY AND ONCOLOGY [place], [place] [phone] 12/30/2023 9:30 AM EST Infusion Hematology Oncology at [address] [phone] documented as of this encounter Visit Diagnoses Not on filedocumented in this encounter Care Teams Wind Operations Supervisor Relationship Specialty Start Date End Date Jez Vance MD [address] [place] [address] PCP - General 01/07/10 documented as of this encounter
--- OUTSIDE RECORDS SUMMARY | 2023-12-03 01:13 | XMS_ITS | Encounter Summary ---
Author Organization [facility] Address [facility] [place] [address] Care Team Providers Care County Health Officer Name Role Phone Jez Vance MD Primary Care Provider [phone] [phone] Encounter Details Date Type Department Care Team (Late st Contact Info) Description 11/13/2022 7:55 AM EDT Office Visit Radiation Oncology at [address] [phone] Toro Hayes MD [address] [place] [address] [place] [address] Malignant neoplasm of prostate Social [...] from the original note were not included. [facility] Medicine Radiation Oncology Radiation Oncology On-treatment [...] check. PSA recheck at end of treatment ([facility]) No orders of the defined types were placed in this encounter. National Cancer [place] (NCI) Comprehensive Cancer Center [employer] Commission on Cancer (ACS [place]) Accredited Cancer Program [employer] (ACR) Accredited Radiation Oncology Program I have seen the patient in person, reviewed and edited the resident's above history and I agree with the details as written. The assessment and plan were formulated in discussion with me and I agree with them as documented. Toro Hayes MD, MS Certified Prosthetist Radiation Oncology documented in this encounter Plan of Treatment Upcoming Encounters Date Type Department Care Team (Late st Contact Info) Description 12/03/2023 8:00 AM EDT Office Visit Hematology/Oncology at [address] [phone] Antonio Brownlee MD [facility] [place] [address] Fani Haskins, [address] HEMATOLOGY AND ONCOLOGY [place], [place] [address] 12/03/2023 8:30 AM EDT Infusion Hematology Oncology at [address] [phone] 12/03/2023 9:00 AM EDT Clinical Support Hematology/Oncology at [address] [phone] Nadege Howell, [facility] DR [place] [address] 12/17/2023 8:30 AM EDT Office Visit Hematology/Oncology at [address] [phone] Antonio Brownlee MD [facility] [place] [address] [address] HEMATOLOGY AND ONCOLOGY [place], [place] [address] 12/17/2023 9:00 AM EDT Infusion Hematology Oncology at [address] [phone] 12/30/2023 9:00 AM EST Office Visit Hematology/Oncology at [address] [phone] Antonio Brownlee MD [facility] [place] [address] Fani Haskins, [address] HEMATOLOGY [place] [address] 12/30/2023 9:30 AM EST Infusion Hematology Oncology at [address] [phone] documented as of this encounter Visit Diagnoses Diagnosis Malignant neoplasm of prostate Malignant neoplasm of head of pancreas documented in this encounter Care Teams County Health Officer Relationship Specialty Start Date End Date Jez Vance MD [address] [place] [address] PCP - General 01/07/10 documented as of this encounter
--- OUTSIDE RECORDS SUMMARY | 2023-12-03 01:13 | XMS_ITS | Encounter Summary ---
Author Organization Formerly [facility] Address [facility] [place] [address] Care Team Providers Care Diversified Crops Farmer Name Role Phone Jez Vance MD Primary Care Provider +1 [phone] Encounter Details Date Type Department Care Team (Late st Contact Info) Description 08/20/2023 Interpretation Only [address] [phone] Beba Muller, CARISSA [address] [address] Social History Tobacco Use Types Packs/Day Years [...] 8:00 AM EDT Office Visit Hematology/Oncology at [address] [phone] Antonio Brownlee MD [facility] [place] [address] Fani Haskins APRN [address] [place] [address] [place] [address] 12/03/2023 8:30 AM EDT Infusion Hematology Oncology at [address] [phone] 12/03/2023 9:00 AM EDT Clinical Support Hematology/Oncology at [address] [phone] [facility] DR HEMATOLOGY [place] [address] 12/17/2023 8:30 AM EDT Office Visit Hematology/Oncology at [address] [phone] Antonio Brownlee MD [facility] [place] [address] HEMATOLOGY AND ONCOLOGY [place], [place] [address] 12/17/2023 9:00 AM EDT Infusion Hematology Oncology at [address] [phone] 12/30/2023 9:00 AM EST Office Visit Hematology/Oncology at [address] [phone] Antonio Brownlee MD [facility] [place] [address] [address] HEMATOLOGY AND ONCOLOGY [place], [place] [address] 12/30/2023 9:30 AM EST Infusion Hematology Oncology at [address] [phone] documented as of this encounter Procedures Procedure Name Priority Date/Time Associated Diagnosis Comments DXA CENTRAL SPINE, HIP, AND/OR WHOLE BODY (GENERIC) Routine 08/20/2023 10:14 AM EDT documented in this encounter Results * DXA Central Spine, Hip, and/or Whole Body (Generic) (08/20/2023 10:14 AM EDT) PT CLASS O RAD ADMITDTTM [id number] RAD PT RAD INFO [id number]^Unavailable ^Physician RAD EXAM DESC XDXAC^BD Bone Density DEXA Axial Skeleton^RIS [facility] WORKSTATION ID [id number] [facility] Anatomical Region Laterality Modality C-spine, Hip N/A [...] who have questions please contact the health lawn care technician that requested your imaging first. ? Electronically signed by: Milton Klein MD, [facility] ([phone]), at 08/20/2023 1:04 PM Narrative 08/20/2023 1:04 PM EDT EXAMINATION: BD Bone Density DEXA Axial Skeleton CLINICAL HISTORY: assisted (current) use of other agents affecting estrogen receptors and estrogen levels TECHNIQUE: Scans were acquired at the lumbar spine, left hip. COMPARISON: None. FINDINGS: Lowest T score at a diagnostic region of interest: T score: -0.9, JEFF:Femoral neck, WHO diagnosis: Normal Procedure Note Milton Klein MD - 08/20/2023 EXAMINATION: BD Bone Density DEXA Axial Skeleton CLINICAL HISTORY: assisted (current) use of other agents affectingestrogen receptors [...] patients who have questions please contactthe health lawn care technician that requested your imaging first. Unknown IMG DEXA ORDERABLES documented in this encounter Visit Diagnoses Not on filedocumented in this encounter Care Teams Diversified Crops Farmer Relationship Specialty Start Date End Date Jez Vance MD [address] [place] [address] PCP - General 01/07/10 documented as of this encounter
--- OUTSIDE RECORDS SUMMARY | 2023-12-03 01:13 | XMS_ITS | Encounter Summary ---
Author Organization [facility] Address One [facility] [place] [address] Care Team Providers Care Assembler Bicycle Name Role Phone Jez Vance MD Primary Care Provider +1 [phone] Encounter Details Date Type Department Care Team [...] AM EDT Office Visit Hematology/Oncology at [address] [phone] Antonio Brownlee MD [facility] [place] [address] Fani Haskins [address] HEMATOLOGY AND [place]COL[place]Y [place], [place] [address] 12/03/2023 8:30 AM EDT Infusion Hematology Oncology at [address] [phone] 12/03/2023 9:00 AM EDT Clinical Support Hematology/Oncology at [address] [phone] [facility] DR HEMATOLOGY [place] [address] 12/17/2023 8:30 AM EDT Office Visit Hematology/Oncology at [address] [phone] Antonio Brownlee MD [facility] [place] [address] Fani Haskins [address] HEMATOLOGY AND ONCOLOGY [place], [place] [address] 12/17/2023 9:00 AM EDT Infusion Hematology Oncology at [address] [phone] 12/30/2023 9:00 AM EST Office Visit Hematology/Oncology at [address] [phone] Antonio Brownlee MD [facility] [place] [address] Fani Haskins APRN [address] [place] [address] DR HEMATOLOGY AND ONCOLOGY [place], [place] [address] 12/30/2023 9:30 AM EST Infusion Hematology Oncology at [address] [phone] documented as of this encounter Visit Diagnoses Not on filedocumented in this encounter Care Teams Assembler Bicycle Relationship Specialty Start Date End Date Jez Vance MD [address] [place] [address] PCP - General 01/07/10 documented as of this encounter
--- OUTSIDE RECORDS SUMMARY | 2023-12-03 01:13 | XMS_ITS | Encounter Summary ---
Author Organization Formerly [facility] Address One [facility] [place] [address] Care Team Providers Care Ob/Gyn Physician Name Role Phone Jez Vance MD Primary Care Provider +1 -[phone] Encounter Details Date Type Department Care Team (Late st Contact Info) Description 11/30/2022 8:00 AM EDT Notes Only Radiation Oncology at [address] [phone] Toro Hayes MD [address] [place] [address] [place] [address] Social History Tobacco Use Types [...] from the original note were not included. [facility] Medicine Radiation Oncology Radiation Therapy Completion [...] Follow-up phone visit with Radiation Oncology in [facility] is scheduled for 01/01/23; he has received instructions to call this office or seek the help of the local emergency room if any further problems should arise prior to followup. TORO HAYES MD 12/04/2022 [facility] [place] (NCI) [facility] [employer] Commission on Cancer (ACS [place]) Accredited Cancer Program [employer] (ACR) Accredited Radiation Oncology Program documented in this encounter Plan of Treatment Upcoming Encounters Date Type Department Care Team (Late st Contact Info) Description 12/03/2023 8:00 AM EDT Office Visit Hematology/Oncology at [address] [phone] Antonio Brownlee MD [facility] [place] [address] Fani Haskins APRN [address] [place] [address] DR HEMATOLOGY AND ONCOLOGY [place], [place] [address] 12/03/2023 8:30 AM EDT Infusion Hematology Oncology at [address] [phone] 12/03/2023 9:00 AM EDT Clinical Support Hematology/Oncology at [address] [phone] [facility] HEMATOLOGY [place] [address] 12/17/2023 8:30 AM EDT Office Visit Hematology/Oncology at [address] [phone] Antonio Brownlee MD [facility] [place] [address] Fani Haskins, [address] HEMATOLOGY AND ONCOLOGY [place], [place] [address] 12/17/2023 9:00 AM EDT Infusion Hematology Oncology at [address] [phone] 12/30/2023 9:00 AM EST Office Visit Hematology/Oncology at [address] [phone] Antonio Brownlee MD [facility] [place] [address] Fani Haskins, [address] HEMATOLOGY AND ONCOLOGY [place], [place] [address] 12/30/2023 9:30 AM EST Infusion Hematology Oncology at [address] [phone] documented as of this encounter Visit Diagnoses Not on filedocumented in this encounter Care Teams Ob/Gyn Physician Relationship Specialty Start Date End Date Jez Vance MD [address] [place] [address] PCP - General 01/07/10 documented as of this encounter
--- OUTSIDE RECORDS SUMMARY | 2023-12-03 01:13 | XMS_ITS | Encounter Summary ---
Author Organization [facility] Address One [facility] [place] [address] Care Team Providers Care Metal Furniture Panel Coverer Name Role Phone Jez Vance MD Primary Care Provider +1 [phone] Encounter Details Date Type Department Care Team (Late st Contact Info) Description 11/25/2022 Notes Only Radiation Oncology at [address] [phone] Daina Montalvo, CARISSA Social History [...] in a usp (including now)? No 08/06/2022 Sex and Gender Information Value Date Recorded Sex Assigned at Not on file Gender Identity Not on file Sexual Orientation Not on file documented as of this encounter Patient Instructions * Attachments The following attachments cannot be sent through Care Everywhere. * Self-Catheterization: Intermittent: Male ([place]) documented in this encounter Progress Notes * [...] not need to continue to self-cath. Call [facility] with any further questions or concerns. [phone] and ask to speak with the Rad/Onc triage nurse. After hours, weekends, and holidays: [phone] and ask for the traffic controller cable radiation oncologist. documented in this encounter Plan of Treatment Upcoming Encounters Date Type Department Care Team (Late st Contact Info) Description 12/03/2023 8:00 AM EDT Office Visit Hematology/Oncology at [address] [phone] Antonio Brownlee MD [facility] [place] [address] HEMATOLOGY AND ONCOLOGY [place], [place] [address] 12/03/2023 8:30 AM EDT Infusion Hematology Oncology at [address] [phone] 12/03/2023 9:00 AM EDT Clinical Support Hematology/Oncology at [address] [phone] [facility] DR [place] [address] 12/17/2023 8:30 AM EDT Office Visit Hematology/Oncology at [address] [phone] Antonio Brownlee MD [facility] [address] [address] HEMATOLOGY AND ONCOLOGY [place], [place] [address] 12/17/2023 9:00 AM EDT Infusion Hematology Oncology at [address] [phone] 12/30/2023 9:00 AM EST Office Visit Hematology/Oncology at [address] [phone] Antonio Brownlee MD [facility] [place] [address] [address] HEMATOLOGY AND ONCOLOGY [place], [place] [address] 12/30/2023 9:30 AM EST Infusion Hematology Oncology at [address] [phone] documented as of this encounter Visit Diagnoses Not on filedocumented in this encounter Care Teams Metal Furniture Panel Coverer Relationship Specialty Start Date End Date Jez Vance MD [address] [place] [address] PCP - General 01/07/10 documented as of this encounter
--- OUTSIDE RECORDS SUMMARY | 2023-12-03 01:13 | XMS_ITS | Encounter Summary ---
Author Organization [facility] Address One [facility] [place] [address] Care Team Providers Care Professor Of French Name Role Phone Jez Vance MD Primary Care Provider +1 [phone] Encounter Details Date Type Department Care Team (Late st Contact Info) Description 11/20/2022 Orders Only Radiation Oncology at [address] [phone] Toro Hayes MD [address] [place] [address] [place] [address] Social History Tobacco Use Types [...] 8:00 AM EDT Office Visit Hematology/Oncology at [address] [phone] Antonio Brownlee MD [facility] [place] [address] Fani Haskins [address] HEMATOLOGY AND ONCOLOGY [place], [place] [address] 12/03/2023 8:30 AM EDT Infusion Hematology Oncology at [address] [phone] 12/03/2023 9:00 AM EDT Clinical Support Hematology/Oncology at [address] [phone] [facility] DR HEMATOLOGY [place] [address] 12/17/2023 8:30 AM EDT Office Visit Hematology/Oncology at [address] [phone] Antonio Brownlee MD [facility] [place] [address] Fani Haskins, [address] [place] [address] 12/17/2023 9:00 AM EDT Infusion Hematology Oncology at [address] [phone] 12/30/2023 9:00 AM EST Office Visit Hematology/Oncology at [address] [phone] Antonio Brownlee MD [facility] [place] [address] Fani Haskins [address] HEMATOLOGY AND ONCOLOGY [place], [place] [address] 12/30/2023 9:30 AM EST Infusion Hematology Oncology at [address] [phone] documented as of this encounter Visit Diagnoses Not on filedocumented in this encounter Care Teams Professor Of French Relationship Specialty Start Date End Date Jez Vance MD [address] [place] [address] PCP - General 01/07/10 documented as of this encounter
--- OUTSIDE RECORDS SUMMARY | 2023-12-03 01:13 | XMS_ITS | Encounter Summary ---
Author Organization [facility] Address One [facility] [place] [address] Care Team Providers Care Gravity Meter Observer Name Role Phone Jez Vance MD Primary Care Provider +1 [phone] Encounter Details Date Type Department Care Team [...] a group home (including now)? No 08/06/2022 Sex and Gender Information Value Date Recorded Sex Assigned at Not on file Gender Identity Not on file Sexual Orientation Not on file documented as of this encounter Plan of Treatment Upcoming Encounters Date Type Department Care Team (Late st Contact Info) Description 12/03/2023 8:00 AM EDT Office Visit Hematology/Oncology at [address] [phone] Antonio Brownlee MD [facility] [place] [address] Fnai Haskins [address] HEMATOLOGY AND ONCOLOGY [place], [place] [address] 12/03/2023 8:30 AM EDT Infusion Hematology Oncology at [address] [phone] 12/03/2023 9:00 AM EDT Clinical Support Hematology/Oncology at [address] [phone] [facility] [place] [address] 12/17/2023 8:30 AM EDT Office Visit Hematology/Oncology at [address] [phone] Antonio Brownlee MD [facility] [place] [address] Fani Haskins [address] HEMATOLOGY AND ONCOLOGY [place], [place] [address] 12/17/2023 9:00 AM EDT Infusion Hematology Oncology at [address] [phone] 12/30/2023 9:00 AM EST Office Visit Hematology/Oncology at [address] [phone] Antonio Brownlee MD [facility] [place] [address] Fani Haskins APRN [address] [place] [address] DR HEMATOLOGY AND ONCOLOGY [place], [place] [address] 12/30/2023 9:30 AM EST Infusion Hematology Oncology at [address] [phone] documented as of this encounter Visit Diagnoses Not on filedocumented in this encounter Care Teams Gravity Meter Observer Relationship Specialty Start Date End Date Jez Vance MD [address] [place] [address] PCP - General 01/07/10 documented as of this encounter
--- OUTSIDE RECORDS SUMMARY | 2023-12-03 01:13 | XMS_ITS | Encounter Summary ---
Author Organization [facility] Address One [facility] [place] [address] Care Team Providers Care Leaf Sucker Operator Name Role Phone Jez Vance MD Primary Care Provider +1 -[phone] Encounter Details Date Type Department Care Team [...] AM EDT Office Visit Hematology/Oncology at [address] [phone] Antonio Brownlee MD [facility] [place] [address] Fani Haskins [address] HEMATOLOGY AND [facility]Y [place] [facility] [address] 12/03/2023 8:30 AM EDT Infusion Hematology Oncology at [address] [phone] 12/03/2023 9:00 AM EDT Clinical Support Hematology/Oncology at [address] [phone] [facility] DR [place] [address] 12/17/2023 8:30 AM EDT Office Visit Hematology/Oncology at [address] [phone] Antonio Brownlee MD [facility] [place] [address] Fani Haskins [address] HEMATOLOGY AND [facility]Y [place] [address] 12/17/2023 9:00 AM EDT Infusion Hematology Oncology at [address] [phone] 12/30/2023 9:00 AM EST Office Visit Hematology/Oncology at [address] [phone] Antonio Brownlee MD [facility] [place] [address] Fani Haskins APRN [address] [place] [address] DR HEMATOLOGY AND ONCOLOGY [place] [address] 12/30/2023 9:30 AM EST Infusion Hematology Oncology at [address] [phone] documented as of this encounter Visit Diagnoses Not on filedocumented in this encounter Care Teams Leaf Sucker Operator Relationship Specialty Start Date End Date Jez Vance MD [address] [place] [address] PCP - General 01/07/10 documented as of this encounter
--- OUTSIDE RECORDS SUMMARY | 2023-12-03 01:13 | XMS_ITS | Encounter Summary ---
Author Organization [facility] Address One [facility] [place] [address] Care Team Providers Care Mortgage Loan Specialist Name Role Phone Jez Vance MD Primary Care Provider +1 -[phone] Encounter Details Date Type Department Care Team [...] AM EDT Office Visit Hematology/Oncology at [address] [phone] Antonio Brownlee MD [facility] [place] [address] Fani Haskins [address] HEMATOLOGY AND ONCOLOGY [place], [place] [address] 12/03/2023 8:30 AM EDT Infusion Hematology Oncology at [address] [phone] 12/03/2023 9:00 AM EDT Clinical Support Hematology/Oncology at [address] [phone] [facility] DR HEMATOLOGY [place] [address] 12/17/2023 8:30 AM EDT Office Visit Hematology/Oncology at [address] [phone] Antonio Brownlee MD [facility] [place] [address] Fani Haskins [address] HEMATOLOGY AND ONCOLOGY [place], [place] [address] 12/17/2023 9:00 AM EDT Infusion Hematology Oncology at [address] [phone] 12/30/2023 9:00 AM EST Office Visit Hematology/Oncology at [address] [phone] Antonio Brownlee MD [facility] [place] [address] Fani Haskins APRN [address] [place] [address] DR HEMATOLOGY AND ONCOLOGY [place], [place] [address] 12/30/2023 9:30 AM EST Infusion Hematology Oncology at [address] [phone] documented as of this encounter Visit Diagnoses Not on filedocumented in this encounter Care Teams Mortgage Loan Specialist Relationship Specialty Start Date End Date Jez Vance MD [address] [place] [address] PCP - General 01/07/10 documented as of this encounter
--- OUTSIDE RECORDS SUMMARY | 2023-12-03 01:13 | XMS_ITS | Encounter Summary ---
Author Organization [facility] Address One [facility] [place] [address] Care Team Providers Care Director Of Product Design Name Role Phone Jez Vance MD Primary Care Provider +1 [phone] Encounter Details Date Type Department Care Team [...] in a detention (including now)? No 08/06/2022 Sex and Gender Information Value Date Recorded Sex Assigned at Not on file Gender Identity Not on file Sexual Orientation Not on file documented as of this encounter Plan of Treatment Upcoming Encounters Date Type Department Care Team (Late st Contact Info) Description 12/03/2023 8:00 AM EDT Office Visit Hematology/Oncology at [address] [phone] Antonio Brownlee MD [facility] [place] [address] Fani Haskins [address] HEMATOLOGY AND ONCOLOGY [place], [place] [address] 12/03/2023 8:30 AM EDT Infusion Hematology Oncology at [address] [phone] 12/03/2023 9:00 AM EDT Clinical Support Hematology/Oncology at [address] [phone] [facility] DR [place] [address] 12/17/2023 8:30 AM EDT Office Visit Hematology/Oncology at [address] [phone] Antonio Brownlee MD [facility] [place] [address] Fani Haskins [address] HEMATOLOGY AND ONCOLOGY [place], [place] [address] 12/17/2023 9:00 AM EDT Infusion Hematology Oncology at [address] [phone] 12/30/2023 9:00 AM EST Office Visit Hematology/Oncology at [address] [phone] Antonio Brownlee MD [facility] [place] [address] Fani Haskins APRN [address] [place] [address] DR HEMATOLOGY AND ONCOLOGY [place], [place] [address] 12/30/2023 9:30 AM EST Infusion Hematology Oncology at [address] [phone] documented as of this encounter Visit Diagnoses Not on filedocumented in this encounter Care Teams Director Of Product Design Relationship Specialty Start Date End Date Jez Vance MD [address] [place] [address] PCP - General 01/07/10 documented as of this encounter
--- OUTSIDE RECORDS SUMMARY | 2023-12-03 01:13 | XMS_ITS | Encounter Summary ---
Author Organization [facility] Address One [facility] [place] [address] Care Team Providers Care Health Unit Coordinator Name Role Phone Jez Vance MD Primary Care Provider +1 [phone] Encounter Details Date Type Department Care Team (Late st Contact Info) Description 12/23/2022 Telephone Radiation Oncology at [address] [phone] Kelly Buchanan Social History Tobacco [...] 8:00 AM EDT Office Visit Hematology/Oncology at [address] [phone] Antonio Brownlee MD [facility] [place] [address] Fani Haskins APRN [address] [place] [address] [place] [address] 12/03/2023 8:30 AM EDT Infusion Hematology Oncology at [address] [phone] 12/03/2023 9:00 AM EDT Clinical Support Hematology/Oncology at [address] [phone] Nadege Howell, [facility] DR HEMATOLOGY [place] [address] 12/17/2023 8:30 AM EDT Office Visit Hematology/Oncology at [address] [phone] Antonio Brownlee MD [facility] [place] [address] [address] HEMATOLOGY AND ONCOLOGY [place], [place] [address] 12/17/2023 9:00 AM EDT Infusion Hematology Oncology at [address] [phone] 12/30/2023 9:00 AM EST Office Visit Hematology/Oncology at [address] [phone] Antonio Brownlee MD [facility] [place] [address] Fani Haskins, [address] [place] [address] 12/30/2023 9:30 AM EST Infusion Hematology Oncology at [address] [phone] documented as of this encounter Visit Diagnoses Not on filedocumented in this encounter Care Teams Health Unit Coordinator Relationship Specialty Start Date End Date Jez Vance MD [address] [place] [address] PCP - General 01/07/10 documented as of this encounter
--- OUTSIDE RECORDS SUMMARY | 2023-12-03 01:13 | XMS_ITS | Encounter Summary ---
Author Organization Formerly [facility] Address One [facility] [place] [address] Care Team Providers Care Skydiving Instructor Name Role Phone Jez Vance MD Primary Care Provider +1 -[phone] Encounter Details Date Type Department Care Team [...] AM EDT Office Visit Hematology/Oncology at [address] [phone] Antonio Brownlee MD [facility] [place] [address] Fani Haskins [address] HEMATOLOGY AND ONCOLOGY [place], [place] [address] 12/03/2023 8:30 AM EDT Infusion Hematology Oncology at [address] [phone] 12/03/2023 9:00 AM EDT Clinical Support Hematology/Oncology at [address] [phone] [facility] DR HEMATOLOGY [place] [address] 12/17/2023 8:30 AM EDT Office Visit Hematology/Oncology at [address] [phone] Antonio Brownlee MD [facility] [place] [address] Fani Haskins [address] HEMATOLOGY AND ONCOLOGY [place], [place] [address] 12/17/2023 9:00 AM EDT Infusion Hematology Oncology at [address] [phone] 12/30/2023 9:00 AM EST Office Visit Hematology/Oncology at [address] [phone] Antonio Brownlee MD [facility] [place] [address] Fani Haskins APRN [address] [place] [address] DR HEMATOLOGY AND ONCOLOGY [place], [place] [address] 12/30/2023 9:30 AM EST Infusion Hematology Oncology at [address] [phone] documented as of this encounter Visit Diagnoses Not on filedocumented in this encounter Care Teams Skydiving Instructor Relationship Specialty Start Date End Date Jez Vance MD [address] [place] [address] PCP - General 01/07/10 documented as of this encounter
--- OUTSIDE RECORDS SUMMARY | 2023-12-03 01:13 | XMS_ITS | Encounter Summary ---
[place] [address] Care Team Providers Care Programmer Analyst Health It Name Role Phone Jez Vance MD Primary Care Provider +1 [phone] Reason for Visit * Auth/Cert (Routine) Specialty Diagnoses / Procedures Referred By Deena yao Referred To Contact Diagnoses Cholestatic liver disease [place] [address] [facility] Referral ID Status Reason Start Date Expiration Date Visits Re quested Visits Authorized [id number] 1 1 Encounter Details Date Type Department Care Team (Late st Contact Info) Description 10/21/2023 [place] [address] Brielle Lowry PA [address] [place] [id number] Other specified diseases of pancreas; Abnormal weight loss; Pruritus, unspecified; Unspecified abdominal pain Social History Tobacco Use Types Packs/Day Years Used Date Smoking Tobacco: Never Smokeless Tobacco: Never Alcohol Use Standard Drinks/Week Comments Yes 1 (1 standard drink = 0.6 oz pur e alcohol) social drinker once a month [facility] Utilities Answer Date Recorded In the past 12 months has [employer], gas, oil, or water company threatened to [...] living in a assisted (including now)? No 10/25/2023 DH IPV Inpatient [...] 8:00 AM EDT Office Visit Hematology/Oncology at [address] [phone] Antonio Brownlee MD [facility] [place] [address] Fani Haskins [address] HEMATOLOGY [place] [address] 12/03/2023 8:30 AM EDT Infusion Hematology Oncology at [address] [phone] 12/03/2023 9:00 AM EDT Clinical Support Hematology/Oncology at [address] [phone] [facility] DR [place] [address] 12/17/2023 8:30 AM EDT Office Visit Hematology/Oncology at [address] [phone] Antonio Brownlee MD [facility] [place] [address] Fani Haskins [address] HEMATOLOGY [place] [address] 12/17/2023 9:00 AM EDT Infusion Hematology Oncology at [address] [phone] 12/30/2023 9:00 AM EST Office Visit Hematology/Oncology at [address] [phone] Antonio Brownlee MD [facility] [place] [address] Fani Haskins APRN [address] [place] [address] DR HEMATOLOGY AND ONCOLOGY [place], [place] [address] 12/30/2023 9:30 AM EST Infusion Hematology Oncology at [address] [phone] documented as of this encounter Procedures Procedure Name Priority Date/Time Associated Diagnosis Comments CARBOHYDRATE ANTIGEN 19-9 Routine 10/21/2023 3:09 PM EDT Other specified diseases of pancreas Abnormal weight loss Pruritus, unspecified Unspecified abdominal pain documented in this encounter Results * (ABNORMAL) Carbohydrate Antigen 19-9 (10/21/2023 3:09 PM EDT) CA 19-9 79.0(H) <=35.0 units/mL 10/21/2023 10:53 PM EDT [facility] Comment:This result was gene rated using a Doreen Danis immunoassay. Results obtained from other methods or manufacturers cannot be used interchangeably with this method. Blood VENOUS BLOOD SPECIMEN / Unknown 10/21/2023 3:09 PM EDT 10/21/2023 10:27 PM EDT ISMAEL Avila CHEMISTRY ORDERAB LES [facility] [place] [address] documented in this encounter Visit Diagnoses Diagnosis Other specified diseases of pancreas Abnormal weight loss Loss of weight Pruritus, unspecified Unspecified abdominal pain Malignant neoplasm of head of pancreas documented in this encounter Care Teams Programmer Analyst Health It Relationship Specialty Start Date End Date Jez Vance MD [address] [place] [address] PCP - General 01/07/10 documented as of this encounter
--- OUTSIDE RECORDS SUMMARY | 2023-12-03 01:13 | XMS_ITS | Encounter Summary ---
Author Organization [facility] Address [facility] [place] [address] Care Team Providers Care Outside Production Inspector Name Role Phone Jez Vance MD Primary Care Provider [phone] [phone] Encounter Details Date Type Department Care Team (Late st Contact Info) Description 06/25/2023 Orders Only Radiation Oncology at [address] [phone] Adrienne Singh PA [facility] [place] [address] Malignant neoplasm of prostate (Primary Dx); Androgen [...] 8:00 AM EDT Office Visit Hematology/Oncology at [address] [phone] Antonio Brownlee MD [facility] [place] [address] Fani Haskins SHARED SERVICES REPRESENTATIVE [address] [place] [address] DR [place] [address] 12/03/2023 8:30 AM EDT Infusion Hematology Oncology at [address] [phone] 12/03/2023 9:00 AM EDT Clinical Support Hematology/Oncology at [address] [phone] [facility] DR [place] [address] 12/17/2023 8:30 AM EDT Office Visit Hematology/Oncology at [address] [phone] Antonio Brownlee MD [facility] [place] [address] [address] HEMATOLOGY AND ONCOLOGY [place], [place] [address] 12/17/2023 9:00 AM EDT Infusion Hematology Oncology at [address] [phone] 12/30/2023 9:00 AM EST Office Visit Hematology/Oncology at [address] [phone] Antonio Brownlee MD [facility] [place] [address] [address] [place] [address] 12/30/2023 9:30 AM EST Infusion Hematology Oncology at [address] [phone] documented as of this encounter Visit Diagnoses Diagnosis Malignant neoplasm of prostate- Primary Androgen deprivation therapy Encounter for therapeutic drug monitoring S/P radiotherapy Convalescence following radiotherapy Malignant neoplasm of head of pancreas documented in this encounter Care Teams Outside Production Inspector Relationship Specialty Start Date End Date Jez Vance MD [address] [place] [address] PCP - General 01/07/10 documented as of this encounter
--- OUTSIDE RECORDS SUMMARY | 2023-12-03 01:13 | XMS_ITS | Encounter Summary ---
Author Organization Formerly [facility] Address One [facility] [place] [address] Care Team Providers Care Health And Safety Coordinator Name Role Phone Jez Vance MD Primary Care Provider +1 [phone] Encounter Details Date Type Department Care Team (Late st Contact Info) Description 11/20/2022 7:55 AM EDT Office Visit Radiation Oncology at [address] [phone] Toro Hayes MD [address] [place] [address] [place] [address] Malignant neoplasm of prostate Social [...] from the original note were not included. [facility] Medicine Radiation Oncology Radiation Oncology On-treatment [...] 12/04/22 - he plans to go to [place] immediately after his final treatment so thiswould need to occur in [place] LUTS Rec Flomax to 0.4mg --> 0.8mg qhs and ibuprofen 400-600mg QHS PRN. Emergency ISC teaching to be provided next week, given he is driving to [place] immediately after completing RT. Followup: Return to clinic next week for on treatment check. PSA recheck at end of treatment ([facility] or [facility]) No orders of the defined types were placed in this encounter. National Cancer [employer] [place] (NCI) Comprehensive Cancer Center [employer] Commission on Cancer (ACS [place]) Accredited Cancer Program [employer] (ACR) Accredited Radiation Oncology Program documented in this encounter Plan of Treatment Upcoming Encounters Date Type Department Care Team (Late st Contact Info) Description 12/03/2023 8:00 AM EDT Office Visit Hematology/Oncology at [address] [phone] Antonio Brownlee MD [facility] [place] [address] Fani Haskins APRN [address] [place] [address] HEMATOLOGY AND ONCOLOGY [place], [place] [phone] 12/03/2023 8:30 AM EDT Infusion Hematology Oncology at [address] [phone] 12/03/2023 9:00 AM EDT Clinical Support Hematology/Oncology at [address] [phone] [facility] DR [place] [address] 12/17/2023 8:30 AM EDT Office Visit Hematology/Oncology at [address] [phone] Antonio Brownlee MD [facility] [place] [address] Fani Haskins, [address] HEMATOLOGY AND ONCOLOGY [place], [place] [address] 12/17/2023 9:00 AM EDT Infusion Hematology Oncology at [address] [phone] 12/30/2023 9:00 AM EST Office Visit Hematology/Oncology at [address] [phone] Antonio Brownlee MD [facility] [place] [address] Fani Haskins, [address] HEMATOLOGY AND ONCOLOGY [place], [place] [address] 12/30/2023 9:30 AM EST Infusion Hematology Oncology at [address] [phone] documented as of this encounter Visit Diagnoses Diagnosis Malignant neoplasm of prostate Malignant neoplasm of head of pancreas documented in this encounter Care Teams Health And Safety Coordinator Relationship Specialty Start Date End Date Jez Vance MD [address] [place] [address] PCP - General 01/07/10 documented as of this encounter
--- OUTSIDE RECORDS SUMMARY | 2023-12-03 01:13 | XMS_ITS | Encounter Summary ---
Author Organization [facility] Address One [facility] [place] [address] Care Team Providers Care Meter Calibrator Name Role Phone Jez Vance MD Primary Care Provider +1 [phone] Encounter Details Date Type Department Care Team (Late st Contact Info) Description 10/21/2023 Interpretation Only [address] [phone] Jez Vance MD [address] [place] [address] Social History Tobacco Use Types Packs/Day Years [...] AM EDT Office Visit Hematology/Oncology at [address] [phone] Antonio Brownlee MD [facility] [place] [place] [address] Fani Haskins APRN [address] [place] [address] DR [place] [address] 12/03/2023 8:30 AM EDT Infusion Hematology Oncology at [address] [phone] 12/03/2023 9:00 AM EDT Clinical Support Hematology/Oncology at [address] [phone] [facility] DR HEMATOLOGY [place] [address] 12/17/2023 8:30 AM EDT Office Visit Hematology/Oncology at [address] [phone] Antonio Brownlee MD [facility] [place] [address] Fani Haskins, [address] HEMATOLOGY AND ONCOLOGY [place], [place] [address] 12/17/2023 9:00 AM EDT Infusion Hematology Oncology at [address] [phone] 12/30/2023 9:00 AM EST Office Visit Hematology/Oncology at [address] [phone] Antonio Brownlee MD [facility] [place] [address] HEMATOLOGY AND ONCOLOGY [place], [place] [address] 12/30/2023 9:30 AM EST Infusion Hematology Oncology at [address] [phone] documented as of this encounter Procedures Procedure Name Priority Date/Time Associated Diagnosis Comments US ABDOMEN LIMITED Routine 10/21/2023 9: 40 AM EDT documented in this encounter Results * US Abdomen Limited (10/21/2023 9:40 AM EDT) PT CLASS O RAD ADMITDTTM [id number] RAD PT RAD INFO [id number]^Genere aux^Jez^H RAD EXAM DESC UABDLIM^US Abdomen Limited^RIS [facility] WORKSTATION ID [id number] [facility] Anatomical Region Laterality Modality Abdomen Ultrasound 10/21/2023 [...] questions please contact the health patient care technician that requested your imaging first. ? Electronically signed by: Milton Klein MD, [facility] ([phone]), at 10/21/2023 11:12 AM Narrative 10/21/2023 11:12 [...] have questions please contactthe health patient care technician that requested your imaging first. Jez Vance MD IMG GEN ORDERA BLES documented in this encounter Visit Diagnoses Not on filedocumented in this encounter Care Teams Meter Calibrator Relationship Specialty Start Date End Date Jez Vance MD [address] [place] [address] PCP - General 01/07/10 documented as of this encounter
--- OUTSIDE RECORDS SUMMARY | 2023-12-03 01:13 | XMS_ITS | Encounter Summary ---
Author Organization Formerly [facility] Address One [facility] [place] [address] Care Team Providers Care Quality Control Coordinator Name Role Phone Jez Vance MD Primary Care Provider +1 -[phone] Encounter Details Date Type Department Care Team [...] AM EDT Office Visit Hematology/Oncology at [address] [phone] Antonio Brownlee MD [facility] [place] [address] Fani Haskins [address] HEMATOLOGY AND ONCOLOGY [place], [place] [address] 12/03/2023 8:30 AM EDT Infusion Hematology Oncology at [address] [phone] 12/03/2023 9:00 AM EDT Clinical Support Hematology/Oncology at [address] [phone] [facility] DR [place] [address] 12/17/2023 8:30 AM EDT Office Visit Hematology/Oncology at [address] [phone] Antonio Brownlee MD [facility] [place] [address] Fani Haskins [address] HEMATOLOGY AND ONCOLOGY [place], [place] [address] 12/17/2023 9:00 AM EDT Infusion Hematology Oncology at [address] [phone] 12/30/2023 9:00 AM EST Office Visit Hematology/Oncology at [address] [phone] Antonio Brownlee MD [facility] [place] [address] Fani Haskins APRN [address] [place] [address] DR HEMATOLOGY AND ONCOLOGY [place], [place] [phone] 12/30/2023 9:30 AM EST Infusion Hematology Oncology at [address] [phone] documented as of this encounter Visit Diagnoses Not on filedocumented in this encounter Care Teams Quality Control Coordinator Relationship Specialty Start Date End Date Jez Vance MD [address] [place] [address] PCP - General 01/07/10 documented as of this encounter
--- OUTSIDE RECORDS SUMMARY | 2023-12-03 01:13 | XMS_ITS | Encounter Summary ---
Author Organization [facility] Address [facility] [place] [address] Care Team Providers Care Roof Assembler Name Role Phone Jez Vance MD Primary Care Provider +1 -[phone] Reason for Visit * Reason Comments Injections Lupron * Treatment/Therapy Plan Authorization (Routine) - Authorized Specialty Diagnoses / Procedures Referred By Deena yao Referred To Contact Radiation Oncology / Hematology and Oncology Diagnoses Malignant neoplasm of prostate Procedures TC LEUPROLIDE ACETATE 7.5MG, FOR DEPOST SUSPENSION (LUPRON DEPOT) [id number] LUPRON DEPOT Toro Hayes MD [address] [place] [address] [place] [address] Toro Hayes MD [address] [place] [address] [place] [address] Referral ID Status Reason Start Date Expiration Date V isits Requested Visits Authorized [id number] Authorized 11/06/2022 11/06/2023 99 99 Encounter Details Date Type Department Care Team (Late st Contact Info) Description 12/04/2022 8:30 AM EDT Infusion Hematology Oncology at [address] [phone] Malignant neoplasm of prostate Social History Tobacco [...] in a retirement (including now)? No 08/06/2022 Sex and Gender [...] Lupron today as he is leaving for [place] for the winter. [place] will get next dose[place] May [place] and let us know when he plans to return to our area so we can schedule him accordingly. documented in this encounter Plan of Treatment Upcoming Encounters Date Type Department Care Team (Late st Contact Info) Description 12/03/2023 8:00 AM EDT Office Visit Hematology/Oncology at [address] [phone] [facility] [place] [address] Fani Haskins APRN [address] [place] [address] DR HEMATOLOGY [place] [address] 12/03/2023 8:30 AM EDT Infusion Hematology Oncology at [address] [phone] 12/03/2023 9:00 AM EDT Clinical Support Hematology/Oncology at [address] [phone] [facility] DR [place] [address] 12/17/2023 8:30 AM EDT Office Visit Hematology/Oncology at [address] [phone] [facility] [place] [address] HEMATOLOGY AND ONCOLOGY [place], [place] [address] 12/17/2023 9:00 AM EDT Infusion Hematology Oncology at [address] [phone] 12/30/2023 9:00 AM EST Office Visit Hematology/Oncology at [address] [phone] [facility] [place] [address] HEMATOLOGY AND ONCOLOGY [place], [place] [phone] 12/30/2023 9:30 AM EST Infusion Hematology Oncology at [address] [phone] documented as of this encounter Visit Diagnoses [...] mg documented in this encounter Care Teams Roof Assembler Relationship Specialty Start Date End Date Jez Vance MD [address] [place] [address] PCP - General 01/07/10 documented as of this encounter
--- OUTSIDE RECORDS SUMMARY | 2023-12-03 01:13 | XMS_ITS | Encounter Summary ---
Author Organization [facility] Address One [facility] [place] [address] Care Team Providers Care Search Manager Name Role Phone Jez Vance MD Primary Care Provider +1 [phone] Encounter Details Date Type Department Care Team [...] 8:00 AM EDT Office Visit Hematology/Oncology at [address] [phone] Antonio Brownlee MD [facility] [address] Fani Haskins [address] HEMATOLOGY AND ONCOLOGY [place], [place] [address] 12/03/2023 8:30 AM EDT Infusion Hematology Oncology at [address] [phone] 12/03/2023 9:00 AM EDT Clinical Support Hematology/Oncology at [address] [phone] [facility] [place] [address] 12/17/2023 8:30 AM EDT Office Visit Hematology/Oncology at [address] [phone] Antonio Brownlee MD [facility] [place] [address] Fani Haskins [address] HEMATOLOGY AND ONCOLOGY [place], [place] [address] 12/17/2023 9:00 AM EDT Infusion Hematology Oncology at [address] [phone] 12/30/2023 9:00 AM EST Office Visit Hematology/Oncology at [address] [phone] Antonio Brownlee MD [facility] [place] [address] Fani Haskins APRN [address] [place] [address] DR HEMATOLOGY AND ONCOLOGY [place], [place] [address] 12/30/2023 9:30 AM EST Infusion Hematology Oncology at [address] [phone] documented as of this encounter Visit Diagnoses Not on filedocumented in this encounter Care Teams Search Manager Relationship Specialty Start Date End Date Jez Vance MD [address] [place] [address] PCP - General 01/07/10 documented as of this encounter
--- OUTSIDE RECORDS SUMMARY | 2023-12-03 01:13 | XMS_ITS | Encounter Summary ---
Author Organization [facility] [place] [address] Care Team Providers Care Swimming Pool Attendant Name Role Phone Jez Vance MD Primary Care Provider [phone] Reason for Visit * Reason Comments Jaundice * Auth/Cert (Routine) Specialty Diagnoses / Procedures Referred By Deena yao Referred To Contact Diagnoses Cholestatic liver disease Rj Rizvi MD [facility] [place] [address] [facility] Referral ID Status Reason Start Date Expiration Date Visits Re quested Visits Authorized [id number] 1 1 Encounter Details Date Type Department Care Team (Late st Contact Info) Description 10/25/2023 1:53 PM EDT - 10/25/2023 3:08 PM EDT [place] [address] Andrew Reynoso MD [facility] [place] [address] UPPER EUS- ENDOSCOPIC ULTRASOUND (WRVU 3.47) Social History Tobacco Use Types Packs/Day Years Used Date Smoking Tobacco: Never Smokeless Tobacco: Never Alcohol Use Standard Drinks/Week Comments Yes 1 (1 standard drink = 0.6 oz pur e alcohol) social drinker once a month [facility] Utilities Answer Date Recorded In [...] in the past 12 m [facility], were you homeless or living in a skilled nursing (including now)? No 10/25/2023 DH IPV Inpatient [...] so he presented to the ED at [facility]. In the ED, found to have hypokalemia (2.9), mild normocytic anemia (13.1), normal renal function, markedly elevated bilirubin (8.6), elevated LFT's (AST 258 / ALT 577). GI consulted by the ED and medicine paged for admission. Patient lives with his , split [place] and [place]. 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 Rare EtOH. Nonsmoker. No [...] team had reached out to the [facility] ([facility]) New Patient schedulers to keep an eye [...] 10/23/2023 1:10 PM) Result Value WORKSTATION ID [id number] Impression 1. Hypodense pancreatic head mass concerning [...] who have questions please contact the health day care aide that requested your imaging first. Chest w Contrast (Exam End: 10/24/2023 1:41 PM) Result Value WORKSTATION ID [id number] Impression No metastatic disease in the chest. Thank you for letting us participate in the care of this patient. If you are a health care provider and have any questions regarding this report, please contact the number below. For patients who have questions please contact the health day care aide that requested your imaging first. Discharge Conditions/Prognosis: Stable; Functional and Cognitive Status: [...] team had reached out to the [facility] ([facility]) New Patient schedulers to keep an eye [...] Your Primary Care Provider: Jez Vance MD [phone] For questions regarding this document or issues relating to this hospitalization on the Medical Service, please contact your inpatient physician through the [facility] Banquet Prep Cook . Issues afterhours and on weekends will [...] the day after the procedure, use an qlox-moh-qzusqqi spray to numb your throat. Sucking on [...] occurs, please contact your Doctor. Please call [phone] before 8pm Mon-Fri with problems, questions or concerns. If you call after 8pm or on weekends, call the Hospital at [phone] and ask to speak to the Head Scorer truck driver salesperson and the asphalt tamping machine operator will contact that person for you. [...] problems, like Where can you learn more? [facility] View your After Visit Summary and more online at [email or web address] If you would like to provide feedback about your hospital experience, please call the Office of Patient and Family Relations at . If you have received this After Visit Summary in error, please immediately return it in person to the department, or notify the [facility] Privacy Office by calling toll free at between the hours of 8AM and 5PM to arrange for our retrieval of the documents at no cost to you. Content Version: 12.2 ?? 9612-9208 [employer]. Care instructions adapted under license by [facility]. If you have questions about a medical condition or this instruction, always ask your healthcare professional. [employer] disclaims any warranty or liability for your [...] the day after the procedure, use an oaqf-lkn-pmavtfm spray to numb your throat. Sucking on [...] occurs, please contact your Doctor. Please call [phone] before 8pm Mon-Fri with problems, questions or concerns. If you call after 8pm or on weekends, call the Hospital at [phone] and ask to speak to the Head Scorer truck driver salesperson and the asphalt tamping machine operator will contact that person for you. [...] any problems. Where can you learn more? [facility] View your After Visit Summary and more online at [email or web address] If you would like to provide feedback about your hospital experience, please call the Office of Patient and Family Relations at . If you have received this After Visit Summary in error, please immediately return it in person to the department, or notify the [facility] Privacy Office by calling toll free at between the hours of 8AM and 5PM to arrange for our retrieval of the documents at no cost to you. Content Version: 12.2 ?? 1312-1311 [employer]. Care instructions adapted under license by [facility]. If you have questions about a medical condition or this instruction, always ask your healthcare professional. [employer] disclaims any warranty or liability for your [...] the day after the procedure, use an ikdk-tsh-btbkzfq spray to numb your throat. Sucking on [...] occurs, please contact your Doctor. Please call [phone] before 8pm Mon-Fri with problems, questions or concerns. If you call after 8pm or on weekends, call the Hospital at [phone] and ask to speak to the Head Scorer truck driver salesperson and the asphalt tamping machine operator will contact that person for you. [...] any problems. Where can you learn more? [facility] View your After Visit Summary and more online at [email or web address] If you would like to provide feedback about your hospital experience, please call the Office of Patient and Family Relations at . If you have received this After Visit Summary in error, please immediately return it in person to the department, or notify the [facility] Privacy Office by calling toll free at between the hours of 8AM and 5PM to arrange for our retrieval of the documents at no cost to you. Content Version: 12.2 ?? 3493-1959 [employer]. Care instructions adapted under license by [facility]. If you have questions about a medical condition or this instruction, always ask your healthcare professional. [employer] disclaims any warranty or liability for your use of this information. Future Appointments and Orders Future Appointments and Orders Future Appointments Provider Department Dept Phone 11/02/2023 10:30 AM Adrienne Singh PA Radiation Oncology at [facility] Arrive at: Home [phone] 11/30/2023 9:45 AM Adrienne Singh PA Radiation Oncology at [facility] Arrive at: Home [phone] 11/30/2023 10:30 AM [facility], ROOM Hematology Oncology at [facility] Arrive at: [facility] door at end of hallway [phone] Future Orders Complete By Expires Referral to Gastroenterology [REF25 Custom] As directed Process Instructions: If requesting a colonoscopy please use [id number] AMB REFERRAL TO COLONOSCOPY PROCEDURE. This referral request is for evaluation and treatment of gastrointestinal health concerns. Scheduling Instructions: Questions: My question or request is: Status post ERCP and EUS for pancreatic cancer Referral to Gastroenterology [REF25 Custom] As directed Process Instructions: If requesting a colonoscopy please use [id number] AMB REFERRAL TO COLONOSCOPY PROCEDURE. This referral [...] cancer Provider Contact Information: Jez Vance MD [facility] [phone] [facility] [address] Discharge References/Attachments: Discharge References/Attachments None documented in [...] the day after the procedure, use an ezmw-mfa-baugxhw spray to numb your throat. Sucking on [...] occurs, please contact your Doctor. Please call [phone] before 8pm Mon-Fri with problems, questions or concerns. If you call after 8pm or on weekends, call the Hospital at [phone] and ask to speak to the Head Scorer truck driver salesperson and the asphalt tamping machine operator will contact that person for you. When should you call for help? Call [phone] anytime you think you may need emergency [...] problems, like Where can you learn more? [facility] View your After Visit Summary and more online at [email or web address] If you would like to provide feedback about your hospital experience, please call the Office of Patient and Family Relations at . If you have received this After Visit Summary in error, please immediately return it in person to the department, or notify the [facility] Privacy Office by calling toll free at between the hours of 8AM and 5PM to arrange for our retrieval of the documents at no cost to you. Content Version: 12.2 ?? 0463-5910 [employer]. Care instructions adapted under license by [facility]. If you have questions about a medical condition or this instruction, always ask your healthcare professional. [employer] disclaims any warranty or liability for your [...] the day after the procedure, use an zdjv-vaj-siefwzz spray to numb your throat. Sucking on [...] occurs, please contact your Doctor. Please call [phone] before 8pm Mon-Fri with problems, questions or concerns. If you call after 8pm or on weekends, call the Hospital at [phone] and ask to speak to the Head Scorer truck driver salesperson and the asphalt tamping machine operator will contact that person for you. When should you call for help? Call [phone] anytime you think you may need emergency [...] any problems. Where can you learn more? [facility] View your After Visit Summary and more online at [email or web address] If you would like to provide feedback about your hospital experience, please call the Office of Patient and Family Relations at . If you have received this After Visit Summary in error, please immediately return it in person to the department, or notify the [facility] Privacy Office by calling toll free at between the hours of 8AM and 5PM to arrange for our retrieval of the documents at no cost to you. Content Version: 12.2 ?? 1253-7640 [employer]. Care instructions adapted under license by [facility]. If you have questions about a medical condition or this instruction, always ask your healthcare professional. [employer] disclaims any warranty or liability for your [...] the day after the procedure, use an luue-dom-yyhibbf spray to numb your throat. Sucking on [...] occurs, please contact your Doctor. Please call [phone] before 8pm Mon-Fri with problems, questions or concerns. If you call after 8pm or on weekends, call the Hospital at [phone] and ask to speak to the Head Scorer truck driver salesperson and the asphalt tamping machine operator will contact that person for you. When should you call for help? Call [phone] anytime you think you may need emergency [...] any problems. Where can you learn more? [facility] View your After Visit Summary and more online at [email or web address] If you would like to provide feedback about your hospital experience, please call the Office of Patient and Family Relations at . If you have received this After Visit Summary in error, please immediately return it in person to the department, or notify the [facility] Privacy Office by calling toll free at between the hours of 8AM and 5PM to arrange for our retrieval of the documents at no cost to you. Content Version: 12.2 ?? 2917-8124 [employer]. Care instructions adapted under license by [facility]. If you have questions about a medical condition or this instruction, always ask your healthcare professional. [employer] disclaims any warranty or liability for your [...] team had reached out to the [facility] ([facility]) New Patient schedulers to keep an eye [...] Your Primary Care Provider: Jez Vance MD [phone] For questions regarding this document or issues relating to this hospitalization on the Medical Service, please contact your inpatient physician through the [facility] Banquet Prep Cook . Issues afterhours and on weekends will [...] out of the unit by a unit ENDOSCOPY RN. Pt is discharged to his home and [...] spent >30 minutes (Day of Discharge Code 78781) involved in the final examination of the [...] General Information Benny Zurita 1940 Medicare Number: [id number] Transport Date: 10/26/2023 (PCS is valid for round trips on this date and for all repetitive trips in the 60-day range as noted below.) Origin: [address] Destination: [facility] Is the patient's stay covered under [...] van (i.e. seated during transport, without medical bill processor or monitoring?): No 4) In addition to [...] minimumof two midnights or is on the [facility] inpatient only procedure list (status C) due to: severe hypokalemia and pancreatic mass requiring EUS/ERCP Team Pager(MD Coverage 07/09): #[phone] PCP: Jez Vance MD [phone] Ros Gonzáles MD 10/26/2023 * Vanesa Vance [...] who have questions please contact the health day care aide that requested your imaging first. Abdomen & Pelvis w Contrast Final Result [...] who have questions please contact the health day care aide that requested your imaging first. SCOPY: Reports and images personally reviewed in [facility] OSH RECORDS: Obtained and personally reviewed ASSESSMENT [...] available and arrange for referrals. * Ros Gonzálse MD - 10/25/2023 6:33 PM EDT [facility] Medicine Attending Daily Progress Note Admit Date: [...] minimumof two midnights or is on the [facility] inpatient only procedure list (status C) due to: severe hypokalemia and pancreatic mass requiring EUS/ERCP Team Pager(MD Coverage 07/09): #[phone] PCP: Jez Vance MD [phone] Ros Gnozáles MD 10/25/2023 * Alethea Barnes RN - [...] encounter: 84.8 kg (186 lb 15.2 oz). 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 Cane Piler met with Benny at bedside (pt's on phone during visit). Benny says that he has had a smaller appetiteand is eating ~50% of his normal sized meals (unable to provide daily intake). He still eats 3 meals per day and some snacks. Cane Piler encouraged 5-6 small meals per day to [...] maxillary line): None present Lean Muscle Loss [place] region (temporalis muscle): None present Clavicle bone [...] minimumof two midnights or is on the [facility] inpatient only procedure list (status C) due to: severe hypokalemia Team Pager(MD Coverage 07/09): #[phone] PCP: Jez Vance MD [phone] Rj Rizvi MD 10/24/2023 * Vanesa Vance [...] Note CC/ID: 83 y.o. Male presents to [facility] with fatigue and nausea Subjective History of [...] so he presented to the ED at [facility]. In the ED, found to have hypokalemia [...] Immunizations given as needed. Rj Rizvi MD [facility] Medicine Pager [phone] documented in this encounter ED Notes * [...] back to room independently and reconnected to [facility]. Denies any further needs or concerns [...] 0 - 60 unit/L Type and screen ([facility]/ANDRE/FREDY) Result Value Ref Range ABORH Type O POSITIVE PATIENT HISTORY Not Found Expires at 6238 on: 10-26-2023 ANTIBODY SCREEN AUTOMATED Negative T&S only valid at [facility] LAB CBC (with Diff) Result Value Ref [...] who have questions please contact the health day care aide that requested your imaging first. Procedures Assessment [...] Secondary Insurance: [facility] Prescription Coverage: Yes This plan was formulated [...] Secondary Insurance: [facility] Plan for discharge is: Home w/o Services [...] Intervention: Provide Person-Centered Care Flowsheets (Taken 10/25/2023 0900 by Kelly Nicholson RN) Trust Relationship/Rapport: care [...] ( spouse) would be surrogatedecision maker per [place] surrogate decision making law. (Only good for 180 days) Any patient receiving care in [place] must abide by [place] law. The hierarchy for surrogate decision making [...] (i) The agent with financial power of deputy commonwealth's attorney or a conservator appointed in accordance [...] or living in a skilled nursing (including now)?: No In the past 12 months has the electric, gas, oil, or water [employer] threatened to shut off services in your [...] - yanira Home Address confirmed as: [address] [facility] [address] Social & Family Supports: All names listed below confirmed with patient as current and correct Extended Emergency Contact Information Primary Emergency Contact: Angela Zurita Address: [address] [place] [address] [facility] [place] Relation: Spouse Secondary Emergency Contact: Tiera [place] Address: [address] [place] [address] [facility] [place] Relation: Child Current Care [...] Secondary Insurance: [facility] ONLY if patient has Medicare A&B - Does this patient have secondary insurance?: Yes ; Prescription Coverage: Yes Preferred Pharmacy: [address] [address] Status: Patient is a : No Primary Care Provider confirmed: Jez Vance MD [phone] Patient/Caregiver Goals of Treatment: return to home [...] who have questions please contact the health day care aide that requested your imaging first. SCOPY: Reports [...] 8:00 AM EDT Office Visit Hematology/Oncology at [address] [phone] Antonio Brownlee MD [facility] [place] [address] Fani Haskins APRN [address] [place] [address] DR HEMATOLOGY AND ONCOLOGY [place], [place] [id number] 12/03/2023 8:30 AM EDT Infusion Hematology Oncology at [address] [phone] 12/03/2023 9:00 AM EDT Clinical Support Hematology/Oncology at [address] [phone] [facility] DR [place] [address] 12/17/2023 8:30 AM EDT Office Visit Hematology/Oncology at [address] [phone] Antonio Brownlee MD [facility] [place] [address] [address] H[address]ins [address] HEMATOLOGY AND ONCOLOGY [place], [place] [phone] 12/17/2023 9:00 AM EDT Infusion Hematology Oncology at [address] [phone] 12/30/2023 9:00 AM EST Office Visit Hematology/Oncology at [address] [phone] Antonio Brownlee MD [facility] [place] [address] [address] HEMATOLOGY AND ONCOLOGY [place], [place] [address] 12/30/2023 9:30 AM EST Infusion Hematology Oncology at [address] [phone] Scheduled Referrals Name Type Priority Associated Diagnoses [...] EDT Ercp Stent Placement Biliary Or Pancreatic Duct(83403) 10/25/2023 2:37 PM EDT pancreas head mass CHOLANGIOGRAM 10/25/2023 2:37 PM EDT pancreas head mass Ercp Balloon Dilatation Biliary/Pancreatic Duct Or Ampulla Ea Duct (78721) 10/25/2023 2:37 PM EDT pancreas head mass Ercp, Sphincterotomy (76451) 10/25/2023 2:37 PM EDT pancreas head mass Upgi Endoscopy W/Us Fn Bx (41930) 10/25/2023 2:37 PM EDT pancreas head mass Ercp, Diagnostic (06322) 10/25/2023 2:37 PM EDT pancreas head mass Endoscopic Us Exam, Esoph ([id number]) 10/25/2023 2:37 PM EDT pancreas head mass [...] Comprehensive metabolic panel (10/27/2023 3:35 AM EDT) [facility] Glucose 157 65 - 199 mg/dL 10/27/2023 5:56 AM [facility] Comment:Glucose Concentratio n >=200 mg/dL plus symptoms is consistent with Diabetes Mellitus. Blood Urea Nitrogen 12 10 - 20 mg/dL 10/27/2023 5:56 AM [facility] Creatinine 0.53(L) 0.80 - 1.50 mg/dL 10/27/2023 5:56 AM [facility] Sodium 131(L) 135 - 145 mMol/L 10/27/2023 5:56 AM [facility] Potassium 3.5 3.5 - 5.0 mMol/L 10/27/2023 5:56 AM [facility] Chloride 95(L) 98 - 107 mMol/L 10/27/2023 5:56 AM [facility] Carbon Dioxide 22 22 - 31 mMol/L 10/27/2023 5:56 AM [facility] Anion Gap 14 5 - 15 mMol/L 10/27/2023 5:56 AM [facility] Calcium 8.4(L) 8.5 - 10.5 mg/dL 10/27/2023 5:56 AM [facility] Protein, Total 6.2 6.1 - 8.0 g/dL 10/27/2023 5:56 AM [facility] Albumin 3.5 3.2 - 5.2 g/dL 10/27/2023 5:[address] [facility] Aspartate Aminotransferase 73(H) <=39 unit/L 10/27/2023 5:[address] [facility] Alanine Aminotransferase 291(H) 0 - 55 unit/L 10/27/2023 5:[address] [facility] Alkaline Phosphatase 329(H) 40 - 130 unit/L 10/27/2023 5:[address] [facility] Bilirubin, Total 2.8(H) <=1.3 mg/dL 10/27/2023 5:[address] [facility] Est Glomerular Filtration Rate - Male 101 mL/min/1. 73 m?? 10/27/2023 5:[address] [facility] Comment: This patient's estimated GFR [...] AM EDT Ros Gonzáles MD CHEMISTRY ORDERABLES [facility] [place] [address] * (ABNORMAL) Magnesium (10/27/2023 3:35 AM EDT) Magnesium 0.63(L) 0.69 - 1.07 mMol/L 10/27/2023 5:[address] [facility] Blood VENOUS BLOOD SPECIMEN / Unknown IP Care Team Draw / Unknown 10/27/2023 3:35 AM EDT 10/27/2023 3:47 AM EDT Ros Gonzáles MD CHEMISTRY ORDERABLES [facility] [place] [address] * (ABNORMAL) Phosphorus (10/27/2023 3:35 AM EDT) Phosphorus 2.4(L) 2.5 - 4.5 mg/dL 10/27/2023 5:[address] [facility] Blood VENOUS BLOOD SPECIMEN / Unknown IP Care Team Draw / Unknown 10/27/2023 3:35 AM EDT 10/27/2023 3:47 AM EDT Ros Gonzáles MD CHEMISTRY ORDERABLES Performing Organization Address City/[facility]/ZIP Co de Phone Number [facility] [place] [address] * (ABNORMAL) CBC (with Diff) (10/27/2023 3:35 AM EDT) White Blood Cell 9.79(H) 4.00 - 9.50 x10(3)/mc L 10/27/2023 3:[address] [facility] Red Blood Cell 3.65(L) 4.58 - 5.54 x10(6)/mc L 10/27/2023 3:[address] [facility] Hemoglobin 11.9(L) 13.7 - 16.5 g/dL 10/27/2023 3:[address] [facility] Hematocrit 34.1(L) 40.5 - 48.5 % 10/27/2023 3:[address] [facility] Mean Cell Volume 93.4(H) 82.9 - 93.1 fL 10/27/2023 3:[address] [facility] Mean Cell Hemoglobin 32.6(H) 27.5 - 32.1 pg 10/27/2023 3:54 AM [facility] Mean Cell Hemoglobin Concentration 34.9 32.0 - 35.7 g/dL 10/27/2023 3:54 AM [facility] Platelet 196 145 - 357 x10(3)/mc L 10/27/2023 3:54 AM [facility] Mean Platelet Volume 12.0 7.6 - 12.9 fL 10/27/2023 3:54 AM [facility] RDW Standard Deviation 47.1(H) 36.0 - 45.0 fL 10/27/2023 3:54 AM [facility] RDW coefficient of variation 13.9(H) 11.4 - 13.8 % 10/27/2023 3:54 AM [facility] NRBC% auto 0.0 % 10/27/2023 3:54 AM [facility] NRBC Absolute 0.00 0.00 - 0.00 x10(3)/mc L 10/27/2023 3:54 AM [facility] Neutrophil % 80.7 % 10/27/2023 3:54 AM [facility] Neutrophil Absolute (ANC) - Automated 7.90(H) 1.70 - 6.10 x10(3)/mc L 10/27/2023 3:54 AM [facility] Lymph % 8.3 % 10/27/2023 3:54 AM [facility] Lymph Absolute 0.81(L) 0.90 - 3.20 x10(3)/mc L 10/27/2023 3:54 AM [facility] Monocyte % 9.3 % 10/27/2023 3:54 AM [facility] Monocyte Absolute 0.91(H) 0.30 - 0.90 x10(3)/mc L 10/27/2023 3:54 AM [facility] Eos % 0.8 % 10/27/2023 3:54 AM [facility] Eos Absolute 0.08 0.00 - 0.40 x10(3)/mc L 10/27/2023 3:[address] [facility] Basophil % 0.3 % 10/27/2023 3:[address] [facility] Baso Absolute 0.03 0.00 - 0.10 x10(3)/mc L 10/27/2023 3:[address] [facility] Immature Gran % 0.6 % 3:[address] [facility] Immature Gran Absolute 0.06(H) 0.00 - 0.04 x10(3)/mc L 10/27/2023 3:[address] [facility] Blood VENOUS BLOOD SPECIMEN / Unknown IP Care Team Draw / Unknown 10/27/2023 3:35 AM EDT 10/27/2023 3:47 AM EDT Ros Gonzáles MD HEMATOLOGY ORDERABLE S [facility] [place] [address] * (ABNORMAL) Comprehensive metabolic panel (10/26/2023 4:00 AM EDT) Glucose 136 65 - 199 mg/dL 10/26/2023 4:[address] [facility] Comment:Glucose Concentratio n >=200 mg/dL plus symptoms is consistent with Diabetes Mellitus. Blood Urea Nitrogen 19 10 - 20 mg/dL 10/26/2023 4:[address] [facility] Creatinine 0.69(L) 0.80 - 1.50 mg/dL 10/26/2023 4:[address] [facility] Sodium 131(L) 135 - 145 mMol/L 10/26/2023 4:[address] [facility] Potassium 3.6 3.5 - 5.0 mMol/L 10/26/2023 4:[address] [facility] Chloride 94(L) 98 - 107 mMol/L 10/26/2023 4:45 AM [facility] Carbon Dioxide 24 22 - 31 mMol/L 10/26/2023 4:45 AM [facility] Anion Gap 13 5 - 15 mMol/L 10/26/2023 4:45 AM [facility] Calcium 8.7 8.5 - 10.5 mg/dL 10/26/2023 4:45 AM [facility] Protein, Total 6.2 6.1 - 8.0 g/dL 10/26/2023 4:45 AM [facility] Albumin 3.4 3.2 - 5.2 g/dL 10/26/2023 4:45 AM [facility] Aspartate Aminotransferase 132(H) <=39 unit/L 10/26/2023 4:45 AM [facility] Alanine Aminotransferase 400(H) 0 - 55 unit/L 10/26/2023 4:45 AM [facility] Alkaline Phosphatase 384(H) 40 - 130 unit/L 10/26/2023 4:45 AM [facility] Bilirubin, Total 3.6(H) <=1.3 mg/dL 10/26/2023 4:45 AM [facility] Est Glomerular Filtration Rate - Male 93 mL/min/1. 73 m?? 10/26/2023 4:45 AM [facility] Comment: This patient's estimated GFR was [...] Gonzáles MD CHEMISTRY ORDERABLES Performing Organization Address City/[facility] Co de Phone Number [facility] [place] [address] * (ABNORMAL) Magnesium (10/26/2023 4:00 AM EDT) Magnesium 0.65(L) 0.69 - 1.07 mMol/L 10/26/2023 4:[address] [facility] Blood VENOUS BLOOD SPECIMEN / Unknown IP Care Team Draw / Unknown 10/26/2023 4:00 AM EDT 10/26/2023 4:12 AM EDT Ros Gonzáles MD CHEMISTRY ORDERABLES Performing Organization Address City/[facility] Co de Phone Number [facility] [place] [address] * Phosphorus (10/26/2023 4:00 AM EDT) Phosphorus 3.1 2.5 - 4.5 mg/dL 10/26/2023 4:[address] [facility] Blood VENOUS BLOOD SPECIMEN / Unknown IP Care Team Draw / Unknown 10/26/2023 4:00 AM EDT 10/26/2023 4:12 AM EDT Ros Gonzáles MD CHEMISTRY ORDERABLES Performing Organization Address City/[facility]/ZIP Co de Phone Number [facility] [place] [address] * (ABNORMAL) CBC (with Diff) (10/26/2023 4:00 AM EDT) White Blood Cell 7.51 4.00 - 9.50 x10(3)/mc L 10/26/2023 4:[address] [facility] Red Blood Cell 3.79(L) 4.58 - 5.54 x10(6)/mc L 10/26/2023 4:47 AM [facility] Hemoglobin 12.2(L) 13.7 - 16.5 g/dL 10/26/2023 4:47 AM [facility] Hematocrit 35.2(L) 40.5 - 48.5 % 10/26/2023 4:47 AM [facility] Mean Cell Volume 92.9 82.9 - 93.1 fL 10/26/2023 4:47 AM [facility] Mean Cell Hemoglobin 32.2(H) 27.5 - 32.1 pg 10/26/2023 4:47 AM [facility] Mean Cell Hemoglobin Concentration 34.7 32.0 - 35.7 g/dL 10/26/2023 4:47 AM [facility] Platelet 210 145 - 357 x10(3)/mc L 10/26/2023 4:47 AM [facility] Mean Platelet Volume 11.7 7.6 - 12.9 fL 10/26/2023 4:47 AM [facility] RDW Standard Deviation 48.8(H) 36.0 - 45.0 fL 10/26/2023 4:47 AM [facility] RDW coefficient of variation 14.3(H) 11.4 - 13.8 % 10/26/2023 4:47 AM [facility] NRBC% auto 0.0 % 10/26/2023 4:47 AM [facility] NRBC Absolute 0.00 0.00 - 0.00 x10(3)/mc L 10/26/2023 4:47 AM [facility] Neutrophil % 80.3 % 10/26/2023 4:47 AM [facility] Neutrophil Absolute (ANC) - Automated 6.04 1.70 - 6.10 x10(3)/mc L 10/26/2023 4:47 AM [facility] Lymph % 11.1 % 10/26/2023 4:[address] [facility] Lymph Absolute 0.83(L) 0.90 - 3.20 x10(3)/mc L 10/26/2023 4:[address] [facility] Monocyte % 6.8 % 10/26/2023 4:[address] [facility] Monocyte Absolute 0.51 0.30 - 0.90 x10(3)/mc L 10/26/2023 4:[address] [facility] Eos % 1.1 % 10/26/2023 4:[address] [facility] Eos Absolute 0.08 0.00 - 0.40 x10(3)/mc L 10/26/2023 4:[address] [facility] Basophil % 0.3 % 10/26/2023 4:[address] [facility] Baso Absolute 0.02 0.00 - 0.10 x10(3)/mc L 10/26/2023 4:[address] [facility] Immature Gran % 0.4 % 4:[address] [facility] Immature Gran Absolute 0.03 0.00 - 0.04 x10(3)/mc L 10/26/2023 4:[address] [facility] Blood VENOUS BLOOD SPECIMEN / Unknown IP Care Team Draw / Unknown 10/26/2023 4:00 AM EDT 10/26/2023 4:13 AM EDT Ros Gonzáles MD HEMATOLOGY ORDERABLE S [facility] [place] [address] * XR ERCP (10/25/2023 4:40 PM EDT) Narrative [facility] - 10/25/2023 4:45 PM EDT See PACS for result report. Rso Gonzáles MD [facility] FILM LIBRARY ORD ERABLES [facility] [place] * (ABNORMAL) Cytology FNA (10/25/2023 3:19 PM EDT) Case Report Medical Cytology Report ? Case: [id number] ? Authorizing Provider: ??Ros Gonzáles MD ?Collected: ? 10/25/2023 1519 ? Ordering Location: ? [place] [facility] [place] Received: ?10/25/2023 1627 ? Pathologist: ? Garrick Vuong MD ? Specimen: ?Pancreas, Head, mass ? 10/28/2023 11:[address] [facility] Specimen Source Pancreas, Head (EUS-guided FNA) 10/28/2023 11:[address] [facility] Final Diagnosis Positive for malignancy 10/28/2023 11:[address] [facility] Diagnosis Discussion Adenocarcinoma. (Cell block was examined.) 10/28/2023 11:54 AM [facility] Specimen Adequacy Satisfactory for evaluation. 10/28/2023 11:54 AM [facility] Additional Studies Block Antibody Result A2 [...] The assays were performed according to the adobe layer's instructions using anti MLH-1 (ES05), anti-MSH-2 ([id number]), andti-MSH-6 (44), and anti-PMS-2 (MRQ-28) antibodies. 10/28/2023 11:54 AM [facility] Disclaimer(s) Formalin-fixed, paraffin-embedded tissue sections are [...] and other diagnostic tests. 10/28/2023 11:54 AM [facility] Clinical Information 83 yrs old male/EUS/ERCP/ pancreas head mass, malignant biliary obstruction 10/28/2023 11:54 AM [facility] Immediate Assessment Fine Needle Aspiration Immediate [...] for final interpretation. 10/28/2023 11:[address] [facility] Gross Description Received in formalin, approximately 45 mL total volume of cloudy, red fluid with clots. Total preparation: Diff-Quik slide(s): 4, Pap Stain slide(s): 4, and Cell Block: 1. 10/28/2023 11:[address] [facility] Result Note THIS RESULT REQUIRES PHYSICIAN/CRYSTAL FOLLOW UP(A) 10/28/2023 11:[address] [facility] Fine Needle Aspirate STRUCTURE OF HEAD OF PANCREAS / Unknown Non Blood Collection / Unknown 10/25/2023 3:19 PM EDT 10/25/2023 4:27 PM EDT Ros Gonzáles MD PATHOLOGY/CYTOLOGY O RDERABLES Performing Organization Address City/State/[facility] Co de Phone Number [facility] [place] [address] * ERCP (10/25/2023 2:24 PM EDT) ERCP [facility] Procedure Date: 10/25/2023 2:24 PM ? Patient Name: Benny Zurita ? Date of : 1940 ? Age: 83 ? Order #: [id number] ? Instrument Name: [id number] ? Procedure: ? ERCP Providers: ? Aaron Alvarado ? Mariah Olmos, ? Speech Scientist Referring : ?Andres Benitez MD Complications: ? No immediate [...] (10/25/2023 2:23 PM EDT) UPPER ENDOSCOPIC ULTRASOUND [facility] Procedure Date: 10/25/2023 2:23 PM ? Patient Name: Benny Zurita ? Date of : 1940 ? Age: 83 ? Order #: [id number] ? Instrument Name: [id number] ? Procedure: ? Upper EUS Patient Profile: ? 83m with suspected malignant ? biliary obstruction Providers: ? Aaron Alvarado ? Mariah Olmos, ? Speech Scientist Referring MD: ? Medicines: ? See the [...] without invasion ? - Using a 22G [employer] needle with stylet through ? Duodenum, FNB [...] 9.50 x10(3)/mc L 10/25/2023 4:[address] [facility] Red Blood Cell 3.76(L) 4.58 - 5.54 x10(6)/mc L 10/25/2023 4:28 AM [facility] Hemoglobin 12.2(L) 13.7 - 16.5 g/dL 10/25/2023 4:28 AM [facility] Hematocrit 34.1(L) 40.5 - 48.5 % 10/25/2023 4:28 AM [facility] Mean Cell Volume 90.7 82.9 - 93.1 fL 10/25/2023 4:28 AM [facility] Mean Cell Hemoglobin 32.4(H) 27.5 - 32.1 pg 10/25/2023 4:28 AM [facility] Mean Cell Hemoglobin Concentration 35.8(H) 32.0 - 35.7 g/dL 10/25/2023 4:28 AM [facility] Platelet 193 145 - 357 x10(3)/mc L 10/25/2023 4:28 AM [facility] Mean Platelet Volume 11.4 7.6 - 12.9 fL 10/25/2023 4:28 AM [facility] RDW Standard Deviation 46.3(H) 36.0 - 45.0 fL 10/25/2023 4:28 AM [facility] RDW coefficient of variation 13.9(H) 11.4 - 13.8 % 10/25/2023 4:28 AM [facility] NRBC% auto 0.0 % 10/25/2023 4:28 AM [facility] NRBC Absolute 0.00 0.00 - 0.00 x10(3)/mc L 10/25/2023 4:28 AM [facility] Neutrophil % 63.6 % 10/25/2023 4:28 AM [facility] Neutrophil Absolute (ANC) - Automated 2.88 1.70 - 6.10 x10(3)/mc L 10/25/2023 4:28 AM [facility] Lymph % 16.8 % 10/25/2023 4:28 AM [facility] Lymph Absolute 0.76(L) 0.90 - 3.20 x10(3)/mc L 10/25/2023 4:28 AM [facility] Monocyte % 11.1 % 10/25/2023 4:28 AM [facility] Monocyte Absolute 0.50 0.30 - 0.90 x10(3)/mc L 10/25/2023 4:28 AM [facility] Eos % 6.9 % 10/25/2023 4:28 AM [facility] Eos Absolute 0.31 0.00 - 0.40 x10(3)/mc L 10/25/2023 4:28 AM [facility] Basophil % 0.9 % 10/25/2023 4:[address] [facility] Baso Absolute 0.04 0.00 - 0.10 x10(3)/mc L 10/25/2023 4:[address] [facility] Immature Gran % 0.7 % 4:[address] [facility] Immature Gran Absolute 0.03 0.00 - 0.04 x10(3)/mc L 10/25/2023 4:[address] [facility] Blood VENOUS BLOOD SPECIMEN / Unknown IP Care Team Draw / Unknown 10/25/2023 3:53 AM EDT 10/25/2023 4:17 AM EDT Rj Rizvi MD HEMATOLOGY ORDERABLE S [facility] [place] [address] * (ABNORMAL) Comprehensive metabolic panel (10/25/2023 3:53 AM EDT) Glucose 121 65 - 199 mg/dL 10/25/2023 4:45 AM [facility] Comment:Glucose Concentratio n >=200 mg/dL plus symptoms is consistent with Diabetes Mellitus. Blood Urea Nitrogen 20 10 - 20 mg/dL 10/25/2023 4:[address] [facility] Creatinine 0.70(L) 0.80 - 1.50 mg/dL 10/25/2023 4:[address] [facility] Sodium 131(L) 135 - 145 mMol/L [facility]23 [facility] Potassium 3.7 3.5 - 5.0 mMol/L 10/25/2023 4:[facility] Chloride 97(L) 98 - 107 mMol/L 10/25/2023 4:[facility] Carbon Dioxide 22 22 - 31 mMol/L 10/25/2023 4:45 AM [facility] Anion Gap 12 5 - 15 mMol/L 10/25/2023 4:45 AM [facility] Calcium 8.8 8.5 - 10.5 mg/dL 10/25/2023 4:45 AM [facility] Protein, Total 5.9(L) 6.1 - 8.0 g/dL 10/25/2023 4:45 AM [facility] Albumin 3.3 3.2 - 5.2 g/dL 10/25/2023 4:45 AM [facility] Aspartate Aminotransferase 190(H) <=39 unit/L 10/25/2023 4:45 AM [facility] Alanine Aminotransferase 458(H) 0 - 55 unit/L 10/25/2023 4:45 AM [facility] Alkaline Phosphatase 366(H) 40 - 130 unit/L 10/25/2023 4:45 AM [facility] Bilirubin, Total 8.5(H) <=1.3 mg/dL 10/25/2023 4:45 AM [facility] Est Glomerular Filtration Rate - Male 93 mL/min/1. 73 m?? 10/25/2023 4:45 AM [facility] Comment: This patient's estimated GFR was [...] AM EDT 10/25/2023 4:17 AM EDT Rj R O'Hermilo MD CHEMISTRY ORDERABLES [facility] [place] [address] * (ABNORMAL) Basic Metabolic Panel (10/24/2023 4:17 PM EDT) Glucose 147 65 - 199 mg/dL 10/24/2023 4:[address] [facility] Comment:Glucose Concentratio n >=200 mg/dL plus symptoms is consistent with Diabetes Mellitus. Blood Urea Nitrogen 17 10 - 20 mg/dL 10/24/2023 4:[address] [facility] Creatinine 0.68(L) 0.80 - 1.50 mg/dL 10/24/2023 4:[address] [facility] Sodium 131(L) 135 - 145 mMol/L 10/24/2023 4:[address] [facility] Potassium 3.5 3.5 - 5.0 mMol/L 10/24/2023 4:[address] [facility] Chloride 94(L) 98 - 107 mMol/L 10/24/2023 4:[address] [facility] Carbon Dioxide 26 22 - 31 mMol/L 10/24/2023 4:[address] [facility] Anion Gap 11 5 - 15 mMol/L 10/24/2023 4:[address] [facility] Calcium 9.0 8.5 - 10.5 mg/dL 10/24/2023 4:[address] [facility] Est Glomerular Filtration Rate - Male 93 mL/min/1. 73 m?? 10/24/2023 4:[address] [facility] Comment: This patient's estimated GFR [...] PM EDT Rj Rizvi MD CHEMISTRY ORDERABLES [facility] [place] [address] * CT Chest w Contrast (10/24/2023 1:41 PM EDT) WORKSTATION ID [id number] RAD Anatomical Region Laterality Modality Chest Computed Tomogra phy Impressions 10/24/2023 5:21 PM EDT No metastatic disease in the chest. Thank you for letting us participate in the care of this patient. ??If you are a health care provider and have any questions regarding this report, please contact the number below. ??For patients who have questions please contact the health day care aide that requested your imaging first. ? Narrative [...] patients who have questions please contactthe health day care aide that requested your imaging first. Rj Rizvi MD IM CT ORDERABLES * (ABNORMAL) CBC (with Diff) (10/24/2023 4:11 AM EDT) White Blood Cell 5.21 4.00 - 9.50 x10(3)/mc L 10/24/2023 4:53 AM [facility] Red Blood Cell 3.79(L) 4.58 - 5.54 x10(6)/mc L 10/24/2023 4:53 AM [facility] Hemoglobin 12.3(L) 13.7 - 16.5 g/dL 10/24/2023 4:53 AM [facility] Hematocrit 34.0(L) 40.5 - 48.5 % 10/24/2023 4:53 AM [facility] Mean Cell Volume 89.7 82.9 - 93.1 fL 10/24/2023 4:53 AM [facility] Mean Cell Hemoglobin 32.5(H) 27.5 - 32.1 pg 10/24/2023 4:53 AM [facility] Mean Cell Hemoglobin Concentration 36.2(H) 32.0 - 35.7 g/dL 10/24/2023 4:53 AM [facility] Platelet 204 145 - 357 x10(3)/mc L 10/24/2023 4:53 AM [facility] Mean Platelet Volume 11.6 7.6 - 12.9 fL 10/24/2023 4:53 AM [facility] RDW Standard Deviation 44.2 36.0 - 45.0 fL 10/24/2023 4:53 AM [facility] RDW coefficient of variation 13.4 11.4 - 13.8 % 10/24/2023 4:53 AM [facility] NRBC% auto 0.0 % 10/24/2023 4:53 AM [facility] NRBC Absolute 0.00 0.00 - 0.00 x10(3)/mc L 10/24/2023 4:53 AM [facility] Neutrophil % 70.5 % 10/24/2023 4:53 AM [facility] Neutrophil Absolute (ANC) - Automated 3.68 1.70 - 6.10 x10(3)/mc L 10/24/2023 4:[address] [facility] Lymph % 15.2 % 10/24/2023 4:[address] [facility] Lymph Absolute 0.79(L) 0.90 - 3.20 x10(3)/mc L 10/24/2023 4:[address] [facility] Monocyte % 10.6 % 10/24/2023 4:[address] [facility] Monocyte Absolute 0.55 0.30 - 0.90 x10(3)/mc L 10/24/2023 4:[address] [facility] Eos % 2.5 % 10/24/2023 4:[address] [facility] Eos Absolute 0.13 0.00 - 0.40 x10(3)/mc L 10/24/2023 4:[address] [facility] Basophil % 0.6 % 10/24/2023 4:[address] [facility] Baso Absolute 0.03 0.00 - 0.10 x10(3)/mc L 10/24/2023 4:[address] [facility] Immature Gran % 0.6 % 4:[address] [facility] Immature Gran Absolute 0.03 0.00 - 0.04 x10(3)/mc L 10/24/2023 4:[address] [facility] Blood VENOUS BLOOD SPECIMEN / Unknown IP Care Team Draw / Unknown 10/24/2023 4:11 AM EDT 10/24/2023 4:43 AM EDT Rj Rizvi MD HEMATOLOGY ORDERABLE S [facility] [place] [address] * (ABNORMAL) Comprehensive metabolic panel (10/24/2023 4:11 AM EDT) Glucose 149 65 - 199 mg/dL 10/24/2023 5:55 AM [facility] Comment:Glucose Concentratio n >=200 mg/dL plus symptoms is consistent with Diabetes Mellitus. Blood Urea Nitrogen 17 10 - 20 mg/dL 10/24/2023 5:55 AM [facility] Creatinine 0.80 0.80 - 1.50 mg/dL 10/24/2023 5:55 AM [facility] Sodium 133(L) 135 - 145 mMol/L 10/24/2023 5:55 AM [facility] Potassium 3.9 3.5 - 5.0 mMol/L 10/24/2023 5:55 AM [facility] Chloride 99 98 - 107 mMol/L 10/24/2023 5:55 AM [facility] Carbon Dioxide 22 22 - 31 mMol/L 10/24/2023 5:55 AM [facility] Anion Gap 12 5 - 15 mMol/L 10/24/2023 5:55 AM [facility] Calcium 8.8 8.5 - 10.5 mg/dL 10/24/2023 5:55 AM [facility] Protein, Total 6.0(L) 6.1 - 8.0 g/dL 10/24/2023 5:55 AM [facility] Albumin 3.4 3.2 - 5.2 g/dL 10/24/2023 5:55 AM [facility] Aspartate Aminotransferase 224(H) <=39 unit/L 10/24/2023 5:55 AM [facility] Alanine Aminotransferase 498(H) 0 - 55 unit/L 10/24/2023 5:55 AM [facility] Alkaline Phosphatase 359(H) 40 - 130 unit/L 10/24/2023 5:55 AM [facility] Bilirubin, Total 7.8(H) <=1.3 mg/dL 10/24/2023 5:[address] [facility] Est Glomerular Filtration Rate - Male 89 mL/min/1. 73 m?? 10/24/2023 5:[address] [facility] Comment: This patient's estimated GFR [...] AM EDT Rj Rizvi MD CHEMISTRY ORDERABLES [facility] [place] [address] * Phosphorus (10/23/2023 4:27 PM EDT) Phosphorus 3.6 2.5 - 4.5 mg/dL 10/23/2023 7:[address] [facility] Blood VENOUS BLOOD SPECIMEN / Unknown IP Care Team Draw / Unknown 10/23/2023 4:27 PM EDT 10/23/2023 4:35 PM EDT Rj Rizvi MD CHEMISTRY ORDERABLES [facility] [place] [address] * Magnesium (10/23/2023 4:27 PM EDT) Magnesium 0.76 0.69 - 1.07 mMol/L 10/23/2023 7:[address] [facility] Blood VENOUS BLOOD SPECIMEN / Unknown IP Care Team Draw / Unknown 10/23/2023 4:27 PM EDT 10/23/2023 4:35 PM EDT Rj Rizvi MD CHEMISTRY ORDERABLES [facility] [place] [address] * (ABNORMAL) Basic Metabolic Panel (10/23/2023 4:27 PM EDT) Glucose 164 65 - 199 mg/dL 10/23/2023 5:[address] [facility] Comment:Glucose Concentratio n >=200 mg/dL plus symptoms is consistent with Diabetes Mellitus. Blood Urea Nitrogen 16 10 - 20 mg/dL 10/23/2023 5:[address] [facility] Creatinine 0.85 0.80 - 1.50 mg/dL 10/23/2023 5:[address] [facility] Sodium 134(L) 135 - 145 mMol/L 10/23/2023 5:[address] [facility] Potassium 2.9(LLL) 3.5 - 5.0 mMol/L 10/23/2023 5:[address] [facility] Chloride 94(L) 98 - 107 mMol/L 10/23/2023 5:[address] [facility] Carbon Dioxide 26 22 - 31 mMol/L 10/23/2023 5:[address] [facility] Anion Gap 14 5 - 15 mMol/L 10/23/2023 5:[address] [facility] Calcium 9.1 8.5 - 10.5 mg/dL 10/23/2023 5:[address] [facility] Est Glomerular Filtration Rate - Male 87 mL/min/1. 73 m?? 10/23/2023 5:[address] [facility] Comment: This patient's estimated GFR [...] Biggs MD CHEMISTRY ORDERABLES Performing Organization Address City/[facility]/[place] [address] * EKG 12 Lead (10/23/2023 1:40 PM EDT) Ventricular rate 56 BPM MUSE SYSTEM Atrial Rate 56 BPM MUSE SYSTEM P-R Interval 146 ms MUSE SYSTEM QRS Duration 122 ms MUSE SYSTEM Q-T Interval 474 ms MUSE SYSTEM QTC Calculated (Bezet) 457 ms MUSE SYSTEM Calculated P [place] 46 degrees MUSE SYSTEM Calculated R [place] -59 degrees MUSE SYSTEM Calculated T [place] 43 degrees MUSE SYSTEM INTERPRETATION Sinus bradycardia with marked sinus arrhythmia Left anterior fascicular block Left ventricular hypertrophy with QRS widening ( R in aVL , [place] product ) Possible Lateral infarct , age undetermined Abnormal ECG No previous ECGs available Confirmed by Devon Leo MD ([id number]) on 10/24/2023 2:23:18 PM MUSE SYSTEM 10/23/2023 1:40 PM EDT 10/24/2023 2:23 PM EDT Leia Rincon MD ECG ORDERABLES Performing Organization Address City/[facility]/ZIP Co de Phone Number MUSE SYSTEM * ABORH RECHECK (10/23/2023 1:24 PM EDT) ABORH Recheck O POSITIVE 10/23/2023 2:12 PM EDT [facility] Blood VENOUS BLOOD SPECIMEN / Unknown IP Care Team Draw / Unknown 10/23/2023 1:24 PM EDT 10/23/2023 1:29 PM EDT Leia Rincon MD BLOOD BANK LAB ORDER RICHELLE [facility]OR[facility] [address] [place] [address] * CT Abdomen & Pelvis w Contrast (10/23/2023 1:10 PM EDT) [email or web address] WORKSTATION ID [id number] RAD Anatomical Region Laterality Modality Abdomen, Pelvis [...] who have questions please contact the health day care aide that requested your imaging first. ? Narrative [...] patients who have questions please contactthe health day care aide that requested your imaging first. Leia Rincon MD IM CT ORDERABLES * (ABNORMAL) CBC (with Diff) (10/23/2023 12:32 PM EDT) [facility] White Blood Cell 4.60 4.00 - 9.50 x10(3)/mc L 10/23/2023 1:17 PM [facility] Red Blood Cell 4.00(L) 4.58 - 5.54 x10(6)/mc L 10/23/2023 1:17 PM [facility] Hemoglobin 13.1(L) 13.7 - 16.5 g/dL 10/23/2023 1:17 PM [facility] Hematocrit 36.2(L) 40.5 - 48.5 % 10/23/2023 1:17 PM [facility] Mean Cell Volume 90.5 82.9 - 93.1 fL 10/23/2023 1:17 PM [facility] Mean Cell Hemoglobin 32.8(H) 27.5 - 32.1 pg 10/23/2023 1:17 PM [facility] Mean Cell Hemoglobin Concentration 36.2(H) 32.0 - 35.7 g/dL 10/23/2023 1:17 PM [facility] Platelet 233 145 - 357 x10(3)/mc L 10/23/2023 1:17 PM [facility] Mean Platelet Volume 11.4 7.6 - 12.9 fL 10/23/2023 1:17 PM [facility] RDW Standard Deviation 43.7 36.0 - 45.0 fL 10/23/2023 1:17 PM [facility] RDW coefficient of variation 13.2 11.4 - 13.8 % 10/23/2023 1:17 PM [facility] NRBC% auto 0.0 % 10/23/2023 1:17 PM [facility] NRBC Absolute 0.00 0.00 - 0.00 x10(3)/mc L 10/23/2023 1:17 PM [facility] Neutrophil % 70.4 % 10/23/2023 1:[address] [facility] Neutrophil Absolute (ANC) - Automated 3.24 1.70 - 6.10 x10(3)/mc L 10/23/2023 1:[address] [facility] Lymph % 15.4 % 10/23/2023 1:[address] [facility] Lymph Absolute 0.71(L) 0.90 - 3.20 x10(3)/mc L 10/23/2023 1:[address] [facility] Monocyte % 10.0 % 10/23/2023 1:[address] [facility] Monocyte Absolute 0.46 0.30 - 0.90 x10(3)/mc L 10/23/2023 1:[address] [facility] Eos % 2.6 % 10/23/2023 1:[address] [facility] Eos Absolute 0.12 0.00 - 0.40 x10(3)/mc L 10/23/2023 1:[address] [facility] Basophil % 0.9 % 10/23/2023 1:[address] [facility] Baso Absolute 0.04 0.00 - 0.10 x10(3)/mc L 10/23/2023 1:[address] [facility] Immature Gran % 0.7 % 1:[address] [facility] Immature Gran Absolute 0.03 0.00 - 0.04 x10(3)/mc L 10/23/2023 1:[address] [facility] Blood VENOUS BLOOD SPECIMEN / Unknown Venipuncture / Unknown 10/23/2023 12:32 PM EDT 10/23/2023 12:41 PM EDT Leia Rincon MD HEMATOLOGY ORDERABLE S [facility] [place] [address] * Type and screen ([facility]/FREDY) (10/23/2023 12:32 PM EDT) Pathologist [facility] [place] ABORH Type O POSITIVE 10/23/2023 1:31 PM EDT [facility] PATIENT HISTORY Not Found 10/23/2023 1:31 PM EDT [facility] Expires at [id number] on: 10-26-2023 10/23/2023 1:31 PM EDT [facility] ANTIBODY SCREEN AUTOMATED Negative 10/23/2023 1:31 PM EDT [facility] T&S only valid at [facility] 10/23/2023 1:31 PM EDT [facility] Blood VENOUS BLOOD SPECIMEN / Unknown Venipuncture / Unknown 10/23/2023 12:32 PM EDT 10/23/2023 12:37 PM EDT Narrative [facility] - 10/23/2023 1:31 PM EDT This Type and Screen result is only valid at the [facility] Leia Rincon MD BLOOD BANK LAB ORDER RICHELLE [facility] [place] [address] * Lipase (10/23/2023 12:32 PM EDT) [facility] Lipase 49 0 - 60 unit/L 10/23/2023 1:[address] [facility] Blood VENOUS BLOOD SPECIMEN / Unknown Venipuncture / Unknown 10/23/2023 12:32 PM EDT 10/23/2023 12:41 PM EDT Leia Rincon MD CHEMISTRY ORDERABLES [facility] [place] [address] * (ABNORMAL) Comprehensive metabolic panel (10/23/2023 12:32 PM EDT) [facility] Glucose 186 65 - 199 mg/dL 10/23/2023 1:[address] [facility] Comment:Glucose Concentratio n >=200 mg/dL plus symptoms is consistent with Diabetes Mellitus. Blood Urea Nitrogen 17 10 - 20 mg/dL 10/23/2023 1:13 PM [facility] Creatinine 0.79(L) 0.80 - 1.50 mg/dL 10/23/2023 1:13 PM [facility] Sodium 130(L) 135 - 145 mMol/L 10/23/2023 1:13 PM [facility] Potassium 2.9(LLL) 3.5 - 5.0 mMol/L 10/23/2023 1:13 PM [facility] Chloride 92(L) 98 - 107 mMol/L 10/23/2023 1:13 PM [facility] Carbon Dioxide 24 22 - 31 mMol/L 10/23/2023 1:13 PM [facility] Anion Gap 14 5 - 15 mMol/L 10/23/2023 1:13 PM [facility] Calcium 9.1 8.5 - 10.5 mg/dL 10/23/2023 1:13 PM [facility] Protein, Total 6.5 6.1 - 8.0 g/dL 10/23/2023 1:13 PM [facility] Albumin 3.8 3.2 - 5.2 g/dL 10/23/2023 1:13 PM [facility] Aspartate Aminotransferase 258(H) <=39 unit/L 10/23/2023 1:13 PM [facility] Alanine Aminotransferase 577(H) 0 - 55 unit/L 10/23/2023 1:13 PM [facility] Alkaline Phosphatase 375(H) 40 - 130 unit/L 10/23/2023 1:13 PM [facility] Bilirubin, Total 8.6(H) <=1.3 mg/dL 10/23/2023 1:13 PM [facility] Est Glomerular Filtration Rate - Male 89 mL/min/1. 73 m?? 10/23/2023 1:[address] [facility] Comment: This patient's estimated GFR [...] Rincon MD CHEMISTRY ORDERABLES Performing Organization Address City/State/[facility] Co de Phone Number [facility] [place] [phone] documented in this encounter Visit Diagnoses Not [...] 0600, Routine 0636 (Given - Provider: Vanesa Vance RN) magnesium sulfate 2 g in sterile water 50 mL infusion (COMPLETED) 2 g, Intravenous, ONCE, 1 dose, On Wed10/27/23 at 0845, Administer over 120 Minutes 0942 (New Bag - Provider: Rosemary Guzmán RN)1142 (Stopped - Provider: Rosemary Guzmán RN) montelukast (Singulair) tablet 5 mg 5 [...] CONTINUOUS, Starting on 10/25/23 at 1400, Until Tu10/26/23 at 0826 1343 (New Bag - Provider: Alethea Barnes RN) 0826 (Stopped - Provider: Rosemary Guzmán, [...] pain, Routine 0000 (Given - Provider: Vanesa Vance RN) melatonin tablet 3 mg 3 mg, Oral, NIGHTLY PRN, Starting on 10/23/23 at 202, Until Wed10/27/23 at 1717, Sleep, Sleep, Routine 1337 ([facility] Hold - Provider: Admin Adt - Reason: Transfer to a Procedural area)1725 ([facility] Unhold - Provider: Admin Adt)2057 (Given - [...] PRN, Starting on 10/23/23 at 202, Until 10/27/23 at 1717, Nausea, If multiple antiemetics are [...] ineffective. documented in this encounter Care Teams Swimming Pool Attendant Relationship Specialty Start Date End Date Jez Vance MD [address] [place] [address] PCP - General 01/07/10 documented as of this encounter
--- OUTSIDE RECORDS SUMMARY | 2023-12-03 01:13 | XMS_ITS | Encounter Summary ---
Author Organization [facility] Address [facility] [place] [address] Care Team Providers Care Installation Helper Name Role Phone Jez Vance MD Primary Care Provider [phone] [phone] Encounter Details Date Type Department Care Team [...] 8:00 AM EDT Office Visit Hematology/Oncology at [address] [phone] Antonio Brownlee MD [facility] [place] [address] Fani Haskins [address] HEMATOLOGY AND ONCOLOGY [place], [place] [address] 12/03/2023 8:30 AM EDT Infusion Hematology Oncology at [address] [phone] 12/03/2023 9:00 AM EDT Clinical Support Hematology/Oncology at [address] [phone] [facility] DR HEMATOLOGY [place] [address] 12/17/2023 8:30 AM EDT Office Visit Hematology/Oncology at [address] [phone] Antonio Brownlee MD [facility] [place] [address] Fani Haskins [address] HEMATOLOGY AND ONCOLOGY [place], [place] [address] 12/17/2023 9:00 AM EDT Infusion Hematology Oncology at [address] [phone] 12/30/2023 9:00 AM EST Office Visit Hematology/Oncology at [address] [phone] Antonio Brownlee MD [facility] [place] [address] Fani Hasknis APRN [address] [place] [address] DR HEMATOLOGY AND ONCOLOGY [place], [place] [phone] 12/30/2023 9:30 AM EST Infusion Hematology Oncology at [address] [phone] documented as of this encounter Visit Diagnoses Not on filedocumented in this encounter Care Teams Installation Helper Relationship Specialty Start Date End Date Jez Vance MD [address] [place] [address] PCP - General 01/07/10 documented as of this encounter
--- OUTSIDE RECORDS SUMMARY | 2023-12-03 01:13 | XMS_ITS | Encounter Summary ---
Author Organization [facility] Address [facility] [place] [address] Care Team Providers Care Manager Engine Name Role Phone Jez Vance MD Primary Care Provider [phone] [phone] Encounter Details Date Type Department Care Team (Late st Contact Info) Description 07/22/2023 1:00 PM EDT Office Visit Radiation Oncology at [address] [phone] Adrienne Singh PA [facility] DR HEMATOLOGY [place] [address] Malignant neoplasm of prostate (Primary Dx); S/P [...] in a intermediate (including now)? 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 Usually has [...] received Lupron 45 mg on 06/11/23 in [place], so his next dose is due on [...] 22.5 mg dose = last injection) Labs ([facility]): PSA, Testosterone, CBC, CMP Imaging Due ([facility]): DXA scan before next appointment Benny Zurita [...] AM EDT Office Visit Hematology/Oncology at [address] [phone] Antonio Brownlee MD [facility] [place] [address] Fani Haskins [address] HEMATOLOGY [place] [address] 12/03/2023 8:30 AM EDT Infusion Hematology Oncology at [address] [phone] 12/03/2023 9:00 AM EDT Clinical Support Hematology/Oncology at [address] [phone] [facility] HEMATOLOGY [place] [address] 12/17/2023 8:30 AM EDT Office Visit Hematology/Oncology at [address] [phone] Antonio Brownlee MD [facility] [address] Fani Haskins, [address] HEMATOLOGY [place] [address] 12/17/2023 9:00 AM EDT Infusion Hematology Oncology at [address] [phone] 12/30/2023 9:00 AM EST Office Visit Hematology/Oncology at [address] [phone] Antonio Brownlee MD [facility] [place] [address] Fani Haskins APRN [address] [place] [address] DR HEMATOLOGY AND ONCOLOGY [place], [place] [address] 12/30/2023 9:30 AM EST Infusion Hematology Oncology at [address] [phone] Scheduled Orders Name Type Priority Associated Diagnoses [...] conditions influencing health status Malignant neoplasm of head of pancreas documented in this encounter Care Teams Manager Engine Relationship Specialty Start Date End Date Jez Vance MD [address] [place] [address] PCP - General 01/07/10 documented as of this encounter
--- OUTSIDE RECORDS SUMMARY | 2023-12-03 01:13 | XMS_ITS | Encounter Summary ---
Author Organization [facility] Address [facility] [place] [address] Care Team Providers Care Mmd Unit Teacher Name Role Phone Jez Vance MD Primary Care Provider [phone] Encounter Details Date Type Department Care Team (Late st Contact Info) Description 07/01/2023 External Results [place] [address] Adrienne Singh MD [facility] [place] [address] Social History Tobacco Use Types Packs/Day Years [...] 8:00 AM EDT Office Visit Hematology/Oncology at [address] [phone] Antonio Brownlee MD [facility] [place] [address] Fani Haskins APRN [address] [place] [address] DR HEMATOLOGY [place] [address] 12/03/2023 8:30 AM EDT Infusion Hematology Oncology at [address] [phone] 12/03/2023 9:00 AM EDT Clinical Support Hematology/Oncology at [address] [phone] [facility] DR [place] [address] 12/17/2023 8:30 AM EDT Office Visit Hematology/Oncology at [address] [phone] Antonio Brownlee MD [facility] [place] [address] Fani Haskins, [address] HEMATOLOGY AND ONCOLOGY [place], [place] [address] 12/17/2023 9:00 AM EDT Infusion Hematology Oncology at [address] [phone] 12/30/2023 9:00 AM EST Office Visit Hematology/Oncology at [address] [phone] Antonio Brownlee MD [facility] [place] [address] Fani Haskins [address] HEMATOLOGY AND ONCOLOGY [place], [place] [phone] 12/30/2023 9:30 AM EST Infusion Hematology Oncology at [address] [phone] documented as of this encounter Procedures Procedure Name Priority Date/Time Associated Diagnosis Comments [facility] RESULT Routine 07/01/2023 9:45 AM EDT CBC (WITH DIFF) Routine 07/01/2023 9:45 AM EDT TESTOSTERONE, TOTAL Routine 07/01/2023 9 :45 AM EDT COMPREHENSIVE METABOLIC PANEL Routine 07/01/2023 9:45 AM EDT documented in this encounter Results * (ABNORMAL) Testosterone, total (07/01/2023 9:45 AM EDT) Testosterone 11(L) [facility] 07/01/2023 9:45 AM EDT 07/01/2023 9:48 AM EDT Narrative [facility] - 07/11/2023 5:00 PM EDT Component ? Value ?RefRange ??Units ? Status Abn? TESTOSTERONE, TOTAL, MALES ?11 ? 250-827 ?? ng/dL ? F ?L (ADULT), [place] ? In hypogonadal males, Testosterone, Total, LC/MS/MS, ? is the recommended assay due to the diminished ? accuracy of immunoassay at levels below 250 ng/dL. ? This test code (84818) must be collected in a ? red-top tube with no gel. ? REPORT COMMENT: ? FASTING:NO Adrienne Singh MD CHEMISTRY ORDERABLES [facility] [address] [facility] [address]LO[address], [place] [address] * (ABNORMAL) CBC (with Diff) (07/01/2023 9:45 AM EDT) White Blood Cell 4.2 3.8 - 10.8 Thousand/ uL [facility] Red Blood Cell 4.18(L) 4.20 - 5.80 Million/u L [facility] Hemoglobin 13.8 13.2 - 17.1 g/dL [facility] Hematocrit 40.7 38.5 - 50.0 % [facility] Mean Cell Volume 97.4 80.0 - 100.0 fL [facility] Mean Cell Hemoglobin 33.0 27.0 - 33.0 pg [facility] Mean Cell Hemoglobin Concentration 33.9 32.0 - 36.0 g/dL [facility] RDW coefficient of variation 12.8 11.0 - 15.0 % [facility] Platelet 203 140 - 400 Thousand/ uL [facility] Mean Platelet Volume 10.8 7.5 - 12.5 fL [facility] Neutrophil Absolute (ANC) - Automated 2780 1500 - 7800 cells/uL [facility] Lymphocytes Abs 739(L) 850 - 3900 cells/uL [facility] Monocyte Abs 466 200 - 950 cells/uL [facility] Eosinophils Abs 193 15 - 500 cells/uL [facility] Baso Absolute 21 0 - 200 cells/uL [facility] Neutrophil % 66.2 % [facility] Lymph % 17.6 % [facility] Monocyte % 11.1 % [facility] Eos % 4.6 % [facility] Basophil % 0.5 % [facility] 07/01/2023 9:45 AM EDT 07/01/2023 9:48 AM EDT Adrienne Singh MD HEMATOLOGY ORDERABLE S [facility] [address] [facility] [address], [place] [address] [facility] [address] [place] [address] * [facility] Result (07/01/2023 9:45 AM EDT) [facility] Result PSA, POST-PROST ATECTOMY [facility] Comment: Test performed by: [facility] [address] [place], [place] ??[address] Tray Casting Machine Operator: ??HAMZAH CANDELARIO MD,PHD,[place] 07/01/2023 9:45 AM EDT 07/01/2023 9:48 AM EDT Narrative [facility] - 07/11/2023 5:00 PM EDT Component ? [...] ? This test was performed using the [employer] DxI ? method. PSA, ICMA is not [...] MD POINT OF CARE TEST O RDERABLES [facility] [address] [facility] [address], [place] [address] [facility] [address] [place] [address] * Comprehensive metabolic panel (non-fasting) (07/01/2023 9:45 AM EDT) Glucose Fasting 106 65 - 139 mg/dL [facility] Comment: ? Non-fasting reference interval Blood Urea Nitrogen 15 7 - 25 mg/dL [facility] Creatinine 0.70 0.70 - 1.22 mg/dL [facility] Est Glomerular Filtration Rate 93 > OR = 60 mL/min/1 .73m2 [facility] BUN/Cre Ratio SEE NOTE: 6 (calc) [facility] Comment: ?? Not Reported: BUN and Creatinine are within ?? reference range. ? Sodium 136 135 - 146 mmol/L [facility] Potassium 3.7 3.5 - 5.3 mmol/L [facility] Chloride 99 98 - 110 mmol/L [facility] Carbon Dioxide 29 20 - 32 mmol/L [facility] Calcium 9.1 8.6 - 10.3 mg/dL [facility] Protein, Total 6.1 6.1 - 8.1 g/dL [facility] Albumin 4.0 3.6 - 5.1 g/dL [facility] Globulin 2.1 1.9 - 3.7 g/dL (calc) [facility] Alb/Globulin Ratio 1.9 1.0 - 2.5 (calc) [facility] Bilirubin, Total 0.5 0.2 - 1.2 mg/dL [facility] Alkaline Phosphatase 42 35 - 144 U/L [facility] Aspartate Aminotransferase 20 10 - 35 U/L [facility] Alanine Aminotransferase 24 9 - 46 U/L [facility] 07/01/2023 9:45 AM EDT 07/01/2023 9:48 AM EDT Adrienne Singh MD CHEMISTRY ORDERABLES [facility] [address] [facility] [address], [place] [address] [facility] [address] [place] [address] documented in this encounter Visit Diagnoses Not on filedocumented in this encounter Care Teams Mmd Unit Teacher Relationship Specialty Start Date End Date Jez Vance MD [address] [place] [address] PCP - General 01/07/10 documented as of this encounter
--- OUTSIDE RECORDS SUMMARY | 2023-12-03 01:13 | XMS_ITS | Encounter Summary ---
Author Organization [facility] Address [facility] [place] [address] Care Team Providers Care Photo Offset Printer Name Role Phone Jez Vance MD Primary Care Provider [phone] Encounter Details Date Type Department Care Team [...] in a detention (including now)? No 08/06/2022 DH IPV Inpatient [...] AM EDT Office Visit Hematology/Oncology at [address] [phone] Antonio Brownlee MD [facility] [place] [address] Fani Haskins APRN [address] [place] [address] DR [place] [address] 12/03/2023 8:30 AM EDT Infusion Hematology Oncology at [address] [phone] 12/03/2023 9:00 AM EDT Clinical Support Hematology/Oncology at [address] [phone] [facility] DR HEMATOLOGY [place] [address] 12/17/2023 8:30 AM EDT Office Visit Hematology/Oncology at [address] [phone] Antonio Brownlee MD [facility] [place] [address] Fani Haskins, [address] [place] [address] 12/17/2023 9:00 AM EDT Infusion Hematology Oncology at [address] [phone] 12/30/2023 9:00 AM EST Office Visit Hematology/Oncology at [address] [phone] Antonio Brownlee MD [facility] [place] [place] [address] Fani Haskins, [address] HEMATOLOGY AND ONCOLOGY [place], [place] [address] 12/30/2023 9:30 AM EST Infusion Hematology Oncology at [address] [phone] documented as of this encounter Visit Diagnoses Not on filedocumented in this encounter Care Teams Photo Offset Printer Relationship Specialty Start Date End Date Jez Vance MD [address] [place] [address] PCP - General 01/07/10 documented as of this encounter
--- OUTSIDE RECORDS SUMMARY | 2023-12-03 01:13 | XMS_ITS | Encounter Summary ---
Author Organization [facility] Address One [facility] [place] [address] Care Team Providers Care Testing Shaking Shipping Name Role Phone Jez Vance MD Primary Care Provider +1 -[phone] Encounter Details Date Type Department Care Team (Late st Contact Info) Description 12/28/2022 Telephone Radiation Oncology at [address] [phone] Joanie Ma Social History Tobacco [...] in a fci (including now)? No 08/06/2022 Sex and Gender [...] because he is on his was to [place] for the winter and was assisting with [...] AM EDT Office Visit Hematology/Oncology at [address] [phone] [facility] [place] [address] HEMATOLOGY AND ONCOLOGY [place], [place] [address] 12/03/2023 8:30 AM EDT Infusion Hematology Oncology at [address] [phone] 12/03/2023 9:00 AM EDT Clinical Support Hematology/Oncology at [address] [phone] [facility] DR [place] [address] 12/17/2023 8:30 AM EDT Office Visit Hematology/Oncology at [address] [phone] [facility] [place] [address] HEMATOLOGY AND ONCOLOGY [place], [place] [phone] 12/17/2023 9:00 AM EDT Infusion Hematology Oncology at [address] [phone] 12/30/2023 9:00 AM EST Office Visit Hematology/Oncology at [address] [phone] [facility] [place] [address] HEMATOLOGY AND ONCOLOGY [place], [place] [address] 12/30/2023 9:30 AM EST Infusion Hematology Oncology at [address] [phone] documented as of this encounter Visit Diagnoses Not on filedocumented in this encounter Care Teams Testing Shaking Shipping Relationship Specialty Start Date End Date Jez Vance MD [address] [place] [address] PCP - General 01/07/10 documented as of this encounter
--- OUTSIDE RECORDS SUMMARY | 2023-12-03 01:13 | XMS_ITS | Encounter Summary ---
Author Organization [facility] Address One [facility] [place] [address] Care Team Providers Care Dye Range Operator Cloth Name Role Phone Jez Vance MD Primary Care Provider +1 [phone] Encounter Details Date Type Department Care Team [...] 8:00 AM EDT Office Visit Hematology/Oncology at [address] [phone] Antonio Brownlee MD [facility] [place] [address] [address] HEMATOLOGY AND ONCOLOGY [place], [place] [address] 12/03/2023 8:30 AM EDT Infusion Hematology Oncology at [address] [phone] 12/03/2023 9:00 AM EDT Clinical Support Hematology/Oncology at [address] [phone] [facility] DR [place] [address] 12/17/2023 8:30 AM EDT Office Visit Hematology/Oncology at [address] [phone] Antonio Brownlee MD [facility] [place] [address] F[address] HEMATOLOGY AND ONCOLOGY [place], [place] [address] 12/17/2023 9:00 AM EDT Infusion Hematology Oncology at [address] [phone] 12/30/2023 9:00 AM EST Office Visit Hematology/Oncology at [address] [phone] Antonio Brownlee MD [facility] [place] [place] [address] Fani Haskins APRN [address] [place] [address] DR HEMATOLOGY AND ONCOLOGY [place], [place] [id number] 12/30/2023 9:30 AM EST Infusion Hematology Oncology at [address] [phone] documented as of this encounter Visit Diagnoses Not on filedocumented in this encounter Care Teams Dye Range Operator Cloth Relationship Specialty Start Date End Date Jez Vance MD [address] [place] [address] PCP - General 01/07/10 documented as of this encounter
--- OUTSIDE RECORDS SUMMARY | 2023-12-03 01:13 | XMS_ITS | Encounter Summary ---
Author Organization Counts Include [facility] Address One [facility] [place] [address] Care Team Providers Care Store Manager Name Role Phone Jez Vance MD Primary Care Provider [phone] [phone] Encounter Details Date Type Department Care Team [...] AM EDT Office Visit Hematology/Oncology at [address] [phone] Antonio Brownlee MD [facility] [place] [address] [address] HEMATOLOGY AND ONCOLOGY [place], [place] [address] 12/03/2023 8:30 AM EDT Infusion Hematology Oncology at [address] [phone] 12/03/2023 9:00 AM EDT Clinical Support Hematology/Oncology at [address] [phone] [facility] DR [place] [address] 12/17/2023 8:30 AM EDT Office Visit Hematology/Oncology at [address] [phone] Antonio Brownlee MD [facility] [place] [address] Fani Haskins [address] [place]ATOLOGY [place] [address] 12/17/2023 9:00 AM EDT Infusion Hematology Oncology at [address] [phone] 12/30/2023 9:00 AM EST Office Visit Hematology/Oncology at [address] [phone] Antonio Brownlee MD [facility] [place] [address] Fani Haskins APRN [address] [place] [address] DR HEMATOLOGY AND ONCOLOGY [place], [place] [phone] 12/30/2023 9:30 AM EST Infusion Hematology Oncology at [address] [phone] documented as of this encounter Visit Diagnoses Not on filedocumented in this encounter Care Teams Store Manager Relationship Specialty Start Date End Date Jez Vance MD [address] [place] [address] PCP - General 01/07/10 documented as of this encounter
--- OUTSIDE RECORDS SUMMARY | 2023-12-03 01:13 | XMS_ITS | Encounter Summary ---
Author Organization [facility] Address One [facility] [place] [address] Care Team Providers Care Pillowcase Folder Name Role Phone Jez Vance MD Primary Care Provider [phone] [phone] Encounter Details Date Type Department Care Team (Late st Contact Info) Description 11/27/2022 10:25 AM EDT Office Visit Radiation Oncology at [address] [phone] Toro Hayes MD [address] [place] [address] [place] [address] Malignant neoplasm of prostate Social [...] from the original note were not included. [facility] Radiation Oncology Radiation Oncology On-treatment Visit [...] imaging has been checked and approved. See Nasrin for details. 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 Continue as planned. Completes next week. ADT - Next Lupron due 12/04/22 - he plans to go to [place] immediately after this LUTS Rec Flomax to 0.4mg --> 0.8mg qhs and ibuprofen 400-600mg QHS PRN. Emergency ISC teaching provided earlier this week, given he is driving to [place] immediately after completing RT. Followup: Phone visit in 4-6 weeks, or sooner PRN. PSA recheck in January in [place] (his urologist will arrange). He will get a Lupron in May there as well, and then notify us when he plans to come back to [place]. No orders of the defined types were placed in this encounter. [facility] [place] ([facility]) [facility] [employer] Commission on Cancer (ACS [place]) Accredited Cancer Program [employer] (A[employer]) Accredited Radiation Oncology Program documented in this encounter Plan of Treatment Upcoming Encounters Date Type Department Care Team (Late st Contact Info) Description 12/03/2023 8:00 AM EDT Office Visit Hematology/Oncology at [address] [phone] Antonio Brownlee MD [facility] [place] [place] [address] Fani Haskins APRN [address] [place] [address] DR HEMATOLOGY AND ONCOLOGY [place], [place] [address] 12/03/2023 8:30 AM EDT Infusion Hematology Oncology at [address] [phone] 12/03/2023 9:00 AM EDT Clinical Support Hematology/Oncology at [address] [phone] Nadege Howell, PALLAVI [facility] DR HEMATOLOGY [place] [address] 12/17/2023 8:30 AM EDT Office Visit Hematology/Oncology at [address] [phone] Antonio Brownlee MD [facility] [place] [address] HEMATOLOGY AND ONCOLOGY [place], [place] [address] 12/17/2023 9:00 AM EDT Infusion Hematology Oncology at [address] [phone] 12/30/2023 9:00 AM EST Office Visit Hematology/Oncology at [address] [phone] Antonio Brownlee MD [facility] [place] [address] [address] HEMATOLOGY [place] [address] 12/30/2023 9:30 AM EST Infusion Hematology Oncology at [address] [phone] documented as of this encounter Visit Diagnoses Diagnosis Malignant neoplasm of prostate Malignant neoplasm of head of pancreas documented in this encounter Care Teams Pillowcase Folder Relationship Specialty Start Date End Date Jez Vance MD [address] [place] [address] PCP - General 01/07/10 documented as of this encounter
--- OUTSIDE RECORDS SUMMARY | 2023-12-03 01:14 | XMS_ITS | Encounter Summary ---
Author Organization [facility] Address [facility] [place] [address] Care Team Providers Care Wood Engraver Name Role Phone Jez Vance MD Primary Care Provider [phone] [phone] Reason for Visit * Consultation (Routine) - Closed Specialty Diagnoses / Procedures Referred By Deena yao Referred To Contact Radiation Oncology Diagnoses Malignant neoplasm of prostate Procedures Simulation for Radiation Therapy Planning Toro Hayes MD [address] [place] [address] [place] [address] [facility] Rad Onc Office [address] [place] [phone] Referral ID Status Reason Start Date Expiration Date V isits Requested Visits Authorized [id number] Closed Consult, Test & Treat 08/06/2022 08/06/2023 1 1 Encounter Details Date Type Department Care Team (Latest Contact Info) Description 10/07/2022 11:00 AM EDT Ancillary Appointment Radiation Oncology at [address] [phone] Toro Hayes MD [address] [place] [address] [place] [address] Malignant neoplasm of prostate Social [...] Note for External Beam Radiation Treatment Planning [facility] Ramin Zurita is a 82 y.o. year [...] of any short term side effects or terminal worker complications of therapy. I anticipate his prescription dose will be 70 Gy to the prostate, delivered in daily 2.5 Gy fractions over the course of 5.5 weeks plus care home hormone therapy. Anticipate therapy to begin within [...] as written above. Toro Hayes MD, MS Concrete Finishing Machine Operator Radiation Oncology documented in this encounter Plan of Treatment Upcoming Encounters Date Type Department Care Team (Late st Contact Info) Description 12/03/2023 8:00 AM EDT Office Visit Hematology/Oncology at [address] [phone] Antonio Brownlee MD [facility] [address] Fani Haskins APRN [address] [place] [address] DR HEMATOLOGY AND ONCOLOGY [place], [place] [id number] 12/03/2023 8:30 AM EDT Infusion Hematology Oncology at [address] [phone] 12/03/2023 9:00 AM EDT Clinical Support Hematology/Oncology at [address] [phone] Nadege Howell, PALLAVI [facility] DR [place] [address] 12/17/2023 8:30 AM EDT Office Visit Hematology/Oncology at [address] [phone] Antonio Brownlee MD [facility] [place] [address] [address] HEMATOLOGY AND ONCOLOGY [place], [place] [id number] 12/17/2023 9:00 AM EDT Infusion Hematology Oncology at [address] [phone] 12/30/2023 9:00 AM EST Office Visit Hematology/Oncology at [address] [phone] Antonio Brownlee MD [facility] [place] [address] [address] [place] [address] 12/30/2023 9:30 AM EST Infusion Hematology Oncology at [address] [phone] Scheduled Orders Name Type Priority Associated Diagnoses Orde r Schedule Simulation for Radiation Therapy Planning Procedures Routine Malignant neoplasm of prostate Ordered: 08/06/2022 documented as of this encounter Visit Diagnoses Diagnosis Malignant neoplasm of prostate Malignant neoplasm of head of pancreas documented in this encounter Care Teams Wood Engraver Relationship Specialty Start Date End Date Jez Vance MD [address] [place] [address] PCP - General 01/07/10 documented as of this encounter
--- OUTSIDE RECORDS SUMMARY | 2023-12-03 01:14 | XMS_ITS | Encounter Summary ---
Author Organization [facility] Address One [facility] [place] [address] Care Team Providers Care Yarn Texture Machine Operator Name Role Phone Jez Vance MD Primary Care Provider [phone] [phone] Encounter Details Date Type Department Care Team [...] AM EDT Office Visit Hematology/Oncology at [address] [phone] Antonio Brownlee MD [facility] [place] [address] Fani Haskins [address] HEMATOLOGY AND ONCOLOGY [place], [place] [address] 12/03/2023 8:30 AM EDT Infusion Hematology Oncology at [address] [phone] 12/03/2023 9:00 AM EDT Clinical Support Hematology/Oncology at [address] [phone] [facility] DR HEMATOLOGY [place] [address] 12/17/2023 8:30 AM EDT Office Visit Hematology/Oncology at [address] [phone] Antonio Brownlee MD [facility] [place] [address] Fani Haskins [address] HEMATOLOGY AND ONCOLOGY [place], [place] [address] 12/17/2023 9:00 AM EDT Infusion Hematology Oncology at [address] [phone] 12/30/2023 9:00 AM EST Office Visit Hematology/Oncology at [address] [phone] Antonio Brownlee MD [facility] [place] [place] [address] Fani Haskins APRN [address] [place] [address] DR HEMATOLOGY AND ONCOLOGY [place], [place] [id number] 12/30/2023 9:30 AM EST Infusion Hematology Oncology at [address] [phone] documented as of this encounter Visit Diagnoses Not on filedocumented in this encounter Care Teams Yarn Texture Machine Operator Relationship Specialty Start Date End Date Jez Vance MD [address] [place] [address] PCP - General 01/07/10 documented as of this encounter
--- OUTSIDE RECORDS SUMMARY | 2023-12-03 01:14 | XMS_ITS | Encounter Summary ---
Author Organization [facility] Address One [facility] [place] [address] Care Team Providers Care Finishing And Shipping Supervisor Name Role Phone Jez Vance MD Primary Care Provider [phone] [phone] Encounter Details Date Type Department Care Team [...] 8:00 AM EDT Office Visit Hematology/Oncology at [address] [phone] Antonio Brownlee MD [facility] [place] [address] Fani Haskins [address] HEMATOLOGY AND ONCOLOGY [place], [place] [address] 12/03/2023 8:30 AM EDT Infusion Hematology Oncology at [address] [phone] 12/03/2023 9:00 AM EDT Clinical Support Hematology/Oncology at [address] [phone] [facility] DR [place]EM[place] [address] 12/17/2023 8:30 AM EDT Office Visit Hematology/Oncology at [address] [phone] Antonio Brownlee MD [facility] [place] [address] Fani Haskins [address] HEMATOLOGY AND ONCOLOGY [place], [place] [address] 12/17/2023 9:00 AM EDT Infusion Hematology Oncology at [address] [phone] 12/30/2023 9:00 AM EST Office Visit Hematology/Oncology at [address] [phone] Antonio Brownlee MD [facility] [place] [address] Fani Haskins APRN [address] [place] [address] DR HEMATOLOGY AND ONCOLOGY [place], [place] [phone] 12/30/2023 9:30 AM EST Infusion Hematology Oncology at [address] [phone] documented as of this encounter Visit Diagnoses Not on filedocumented in this encounter Care Teams Finishing And Shipping Supervisor Relationship Specialty Start Date End Date Jez Vance MD [address] [place] [address] PCP - General 01/07/10 documented as of this encounter
--- OUTSIDE RECORDS SUMMARY | 2023-12-03 01:14 | XMS_ITS | Encounter Summary ---
[place] [address] Care Team Providers Care Transit Bus Driver Name Role Phone Jez Vance MD Primary Care Provider [phone] [phone] Reason for Referral * Consultation (Routine) - Closed Specialty Diagnoses / Procedures Referred By Deena yao Referred To Contact Radiation Oncology Diagnoses Malignant neoplasm of prostate Procedures Simulation for Radiation Therapy Planning David Hayes MD [address] [place] [address] [place] [address] [facility] Onc Office [address] [place] [phone] Referral ID Status Reason Start Date Expiration Date V isits Requested Visits Authorized [id number] Closed Consult, Test & Treat 08/06/2022 08/06/2023 1 1 * Diagnostic Test (Routine) - Closed Specialty Diagnoses / Procedures Referred By Deena yao Referred To Contact Radiology Diagnoses Malignant neoplasm of prostate Procedures MRI Pelvis wo (Prostate) David Hayes MD [address] [place] [address] [place] [address] [facility] [place] [address] Referral ID Status Reason Start Date Expiration Date V isits Requested Visits Authorized [id number] Closed Specialty Service Requested 08/06/2022 02/06/2024 1 1 Reason for Visit * Consultation (Routine) - Closed Specialty Diagnoses / Procedures Referred By Contac t Referred To Contact Radiation Oncology Diagnoses Malignant neoplasm of prostate Procedures treatment options Jesus Cuellar MD [address] [place] [address] David Hayes MD [address] [place] [address] [place] [address] Referral ID Status Reason Start Date Expiration Date Visits Re quested Visits Authorized [id number] Closed 07/23/2022 07/23/2023 1 1 Encounter Details Date Type Department Care Team (Late st Contact Info) Description 08/06/2022 9:00 AM EDT Office Visit Radiation Oncology at [address] [phone] David Hayes MD [address] [place] [address] DR RADIATION ONCOLOGY [place], [place] [id number] Malignant neoplasm of prostate Social History Tobacco [...] are considered high risk. 2. Your highest [employer] score was 4 (this is how [...] ways radiation can be given here in [facility]. Either: 5.5 weeks of daily radiation (M-F) [...] of completion radiation. 6. SIDE EFFECTS - Care Home: These can include be permanent damage of the radiated tissues, including the rectum/bowel, bladder, prostate and surrounding tissues. Potential serious injury is rare, but can include poor wound healing, bleeding, or destruction of healthy tissue that may require surgery to repair and may result in a colostomy (bag for defecation) or urostomy (bag for urination). There may be a slow, usp decrease in your sexual function as well, [...] do not hesitate to call me at [phone] with any other questions or concerns you have. IfI am not here, one of our radiation oncology nurses can assist you or help you get in touch with me. A Radiation Oncology doctor is also utilization coordinator after our normal hours and on weekends for urgent questions or concerns related to radiation treatments that can not wait until normal business hours. To reach the on-call doctor after-hours, just call and have the electric arc furnace operator page the Radiation Oncologist utilization coordinator. 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 However given increased convenience of treatment this regimens were discussed and offered. Brachytherapy was not discussed given his age, the added morbidity and - asyet - uncertain benefits in terms of disease-specific survival endpoints. In the short term, I reviewed the common irritative bowel and bladder side effects associated with all forms of radiotherapy. In the long term care phlebotomist, I explained there is an approximately 2% [...] briefly. He may be a candidate for [facility], a randomized study for high risk prostate cancer patients, which stratifies patients based on Decipher molecular score to either an escalated or de- escalated 2 year androgen deprivation therapy regimens. Given that hespends 1/2 of the year in [place] he has declined participation. On balance, Benny wishes to proceed with usp ADT and RT. Follow-up appointments will be [...] anticipate 28 fractions to be delivered in [facility] next week for Lupron Time Attestation: [...] Systems: Angela Barriers to treatment: none Referrals/Interventions: burlap worker visit on per routine. RADIATION SPECIFIC TEACHING:Will provide the following information on day [facility] Radiation Therapy and You Site specific teaching : Other: PLAN: Per Answers submitted by the patient for this visit: (Submitted on 08/06/2022) Distress: 5 documented in this encounter Plan of Treatment Upcoming Encounters Date Type Department Care Team (Late st Contact Info) Description 12/03/2023 8:00 AM EDT Office Visit Hematology/Oncology at [address] [phone] Antonio Brownlee MD [facility] [address] Fani Haskins [address] HEMATOLOGY AND ONCOLOGY [place], [place] [id number] 12/03/2023 8:30 AM EDT Infusion Hematology Oncology at [address] [phone] 12/03/2023 9:00 AM EDT Clinical Support Hematology/Oncology at [address] [phone] [facility] [place] [address] 12/17/2023 8:30 AM EDT Office Visit Hematology/Oncology at [address] [phone] Antonio Brownlee MD [facility] [place] [address] HEMATOLOGY AND ONCOLOGY [place], [place] [id number] 12/17/2023 9:00 AM EDT Infusion Hematology Oncology at [address] [phone] 12/30/2023 9:00 AM EST Office Visit Hematology/Oncology at [address] [phone] Antonio Brownlee MD [facility] [place] [address] [address] HEMATOLOGY AND ONCOLOGY [place], [place] [id number] 12/30/2023 9:30 AM EST Infusion Hematology Oncology at [address] [phone] Scheduled Orders Name Type Priority [...] consultant that requested your imaging first. ? Electronically signed by: Lalo Cristobal MD, [facility] ([phone]), at 09/22/2022 9:55 PM Narrative 09/22/2022 9:55 [...] development consultant that requested your imaging first. Electronically signed by: Lalo Cristobal MD, [facility]([phone]), at 09/22/2022 9:55 PM David Hayes MD [facility] MRI ORDERABLES documented in this encounter Visit Diagnoses Diagnosis Malignant neoplasm of prostate Malignant neoplasm of prostate Malignant neoplasm of head of pancreas documented in this encounter Care Teams Transit Bus Driver Relationship Specialty Start Date End Date Jez Vance MD [address] [place] [address] PCP - General 01/07/10 documented as of this encounter
--- OUTSIDE RECORDS SUMMARY | 2023-12-03 01:14 | XMS_ITS | Encounter Summary ---
Author Organization Formerly [facility] Address One [facility] [place] [address] Care Team Providers Care Powder Truck Driver Name Role Phone Jez Vance MD Primary Care Provider +1 [phone] Encounter Details Date Type Department Care Team [...] AM EDT Office Visit Hematology/Oncology at [address] [phone] Antonio Brownlee MD [facility] [place] [address] Fani Haskins [address] HEMATOLOGY AND ONCOLOGY [place], [place] [address] 12/03/2023 8:30 AM EDT Infusion Hematology Oncology at [address] [phone] 12/03/2023 9:00 AM EDT Clinical Support Hematology/Oncology at [address] [phone] [facility] DR [place] [address] 12/17/2023 8:30 AM EDT Office Visit Hematology/Oncology at [address] [phone] Antonio Brownlee MD [facility] [place] [address] Fani Haskins [address] HEMATOLOGY AND ONCOLOGY [place], [place] [address] 12/17/2023 9:00 AM EDT Infusion Hematology Oncology at [address] [phone] 12/30/2023 9:00 AM EST Office Visit Hematology/Oncology at [address] [phone] Antonio Brownlee MD [facility] [place] [address] Fani Haskins APRN [address] [place] [address] DR HEMATOLOGY AND ONCOLOGY [place], [place] [phone] 12/30/2023 9:30 AM EST Infusion Hematology Oncology at [address] [phone] documented as of this encounter Visit Diagnoses Not on filedocumented in this encounter Care Teams Powder Truck Driver Relationship Specialty Start Date End Date Jez Vance MD [address] [place] [address] PCP - General 01/07/10 documented as of this encounter
--- OUTSIDE RECORDS SUMMARY | 2023-12-03 01:14 | XMS_ITS | Encounter Summary ---
Author Organization Formerly [facility] Address One [facility] [place] [address] Care Team Providers Care Control Technician Name Role Phone Jez Vance MD Primary Care Provider +1 [phone] Encounter Details Date Type Department Care Team (Late st Contact Info) Description 11/06/2022 7:55 AM EDT Office Visit Radiation Oncology at [address] [phone] Toro Hayes MD [address] [place] [address] [place] [address] Malignant neoplasm of prostate Social [...] from the original note were not included. [facility] [place] Medicine Radiation Oncology Radiation Oncology On-treatment Visit [...] check. PSA recheck at end of treatment ([facility] or [facility]) No orders of the defined types were placed in this encounter. National Cancer [place] (NCI) Comprehensive Cancer Center [employer] Commission on Cancer (ACS Monserrat) Accredited Cancer Program [employer] (ACR) Accredited Radiation Oncology Program documented in this encounter Plan of Treatment Upcoming Encounters Date Type Department Care Team (Late st Contact Info) Description 12/03/2023 8:00 AM EDT Office Visit Hematology/Oncology at [address] [phone] Antonio Brownlee MD [facility] [place] [address] Fani Haskins APRN [address] [place] [address] DR HEMATOLOGY AND ONCOLOGY [place], [place] [id number] 12/03/2023 8:30 AM EDT Infusion Hematology Oncology at [address] [phone] 12/03/2023 9:00 AM EDT Clinical Support Hematology/Oncology at [address] [phone] [facility] [place] [address] 12/17/2023 8:30 AM EDT Office Visit Hematology/Oncology at [address] [phone] Antonio Brownlee MD [facility] [place] [address] [place] [address] 12/17/2023 9:00 AM EDT Infusion Hematology Oncology at [address] [phone] 12/30/2023 9:00 AM EST Office Visit Hematology/Oncology at [address] [phone] Antonio Brownlee MD [facility] [place] [address] [place]AT[place] [address] 12/30/2023 9:30 AM EST Infusion Hematology Oncology at [address] [phone] documented as of this encounter Visit Diagnoses Diagnosis Malignant neoplasm of prostate Malignant neoplasm of head of pancreas documented in this encounter Care Teams Control Technician Relationship Specialty Start Date End Date Jez Vance MD [address] [place] [address] PCP - General 01/07/10 documented as of this encounter
--- OUTSIDE RECORDS SUMMARY | 2023-12-03 01:14 | XMS_ITS | Encounter Summary ---
Author Organization Formerly [facility] Address [facility] [place] [address] Care Team Providers Care Meat Stocker Name Role Phone Jez Vance MD Primary Care Provider +1 -[phone] Encounter Details Date Type Department Care Team (Late st Contact Info) Description 07/23/2022 Telephone Radiation Oncology at [address] [phone] Joanie Ma Social History Tobacco [...] 8:00 AM EDT Office Visit Hematology/Oncology at [address] [phone] Antonio Brownlee MD [facility] [place] [address] Fani Haskins [address] HEMATOLOGY AND ONCOLOGY [place], [place] [address] 12/03/2023 8:30 AM EDT Infusion Hematology Oncology at [address] [phone] 12/03/2023 9:00 AM EDT Clinical Support Hematology/Oncology at [address] [phone] [facility] HEMATOLOGY [place] [address] 12/17/2023 8:30 AM EDT Office Visit Hematology/Oncology at [address] [phone] Antonio Brownlee MD [facility] [place] [address] Fani Haskins [address] [place] [address] 12/17/2023 9:00 AM EDT Infusion Hematology Oncology at [address] [phone] 12/30/2023 9:00 AM EST Office Visit Hematology/Oncology at [address] [phone] Antonio Brownlee MD [facility] [place] [address] Fani Haskins APRN [address] [place] [address] DR HEMATOLOGY AND ONCOLOGY [place], [place] [id number] 12/30/2023 9:30 AM EST Infusion Hematology Oncology at [address] [phone] documented as of this encounter Visit Diagnoses Not on filedocumented in this encounter Care Teams Meat Stocker Relationship Specialty Start Date End Date Jez Vance MD [address] [place] [address] PCP - General 01/07/10 documented as of this encounter
--- OUTSIDE RECORDS SUMMARY | 2023-12-03 01:14 | XMS_ITS | Encounter Summary ---
[place] [address] Care Team Providers Care Traffic Coordinator Name Role Phone Jez Vance MD Primary Care Provider +1 [phone] Reason for Referral * Diagnostic Test (Routine) - Closed Specialty Diagnoses / Procedures Referred By Contac t Referred To Contact Radiology Diagnoses Malignant neoplasm of prostate Procedures MRI Pelvis wo (Prostate) Toro Hayes MD [address] [place] [address] DR [place] [address] [place] [address] Referral ID Status Reason Start Date Expiration Date V isits Requested Visits Authorized [id number] Closed Specialty Service Requested 08/06/2022 02/06/2024 1 1 Reason for Visit * Diagnostic Test (Routine) - Closed Specialty Diagnoses / Procedures Referred By Contac t Referred To Contact Radiology Diagnoses Malignant neoplasm of prostate Procedures MRI Pelvis wo (Prostate) Toro Hayes MD [address] [place] [address] DR [place] [address] [place] [address] Referral ID Status Reason Start Date Expiration Date V isits Requested Visits Authorized [id number] Closed Specialty Service Requested 08/06/2022 02/06/2024 1 1 Encounter Details Date Type Department Care Team (Latest Contact Info) Description 09/22/2022 2:56 PM EDT - 09/22/2022 11:59 PM EDT Hospital Encounter MRI at [facility] [place] [address] Toro Hayes MD [address] [place] [address] DR [place] [address] Malignant neoplasm of prostate Discharge Disposition: Home [...] tablet 09/10/2022 10/23/2022 dexAMETHasone (Decadron) 2 mg tabletIndications:Candace lugo neoplasm of prostate Start taking day of [...] AM EDT Office Visit Hematology/Oncology at [address] [phone] Antonio Brownlee MD [facility] [place] [address] Fani Haskins APRN [address] [place] [address] DR HEMATOLOGY [place] [address] 12/03/2023 8:30 AM EDT Infusion Hematology Oncology at [address] [phone] 12/03/2023 9:00 AM EDT Clinical Support Hematology/Oncology at [address] [phone] Nadege Howell, PALLAVI [facility] HEMATOLOGY [place] [address] 12/17/2023 8:30 AM EDT Office Visit Hematology/Oncology at [address] [phone] Antonio Brownlee MD [facility] [place] [address] HEMATOLOGY AND ONCOLOGY [place], [place] [id number] 12/17/2023 9:00 AM EDT Infusion Hematology Oncology at [address] [phone] 12/30/2023 9:00 AM EST Office Visit Hematology/Oncology at [address] [phone] Antonio Brownlee MD [facility] [place] [address] HEMATOLOGY AND ONCOLOGY [place], [place] [address] 12/30/2023 9:30 AM EST Infusion Hematology Oncology at [address] [phone] documented as of this encounter Procedures Procedure [...] who have questions please contact the health continuum of care manager that requested your imaging first. ? Electronically signed by: Lalo Cristobal MD, [facility] ([phone]), at 09/22/2022 9:55 PM Narrative 09/22/2022 9:55 [...] patients who have questions please contactthe health continuum of care manager that requested your imaging first. Toro Hayes MD IMG MRI ORDERABLES documented in this encounter Visit Diagnoses Diagnosis Malignant neoplasm of prostate Malignant neoplasm of head of pancreas documented in this encounter Care Teams Traffic Coordinator Relationship Specialty Start Date End Date Jez Vance MD [address] [place] [address] PCP - General 01/07/10 documented as of this encounter
--- OUTSIDE RECORDS SUMMARY | 2023-12-03 01:14 | XMS_ITS | Encounter Summary ---
Author Organization [facility] Address One [facility] [place] [address] Care Team Providers Care Manager Inventory Name Role Phone Jez Vance MD Primary Care Provider +1 -[phone] Encounter Details Date Type Department Care Team [...] AM EDT Office Visit Hematology/Oncology at [address] [phone] Antonio Brownlee MD [facility] [place] [address] Fani Haskins [address] HEMATOLOGY AND ONCOLOGY [place] [address] 12/03/2023 8:30 AM EDT Infusion Hematology Oncology at [address] [phone] 12/03/2023 9:00 AM EDT Clinical Support Hematology/Oncology at [address] [phone] [facility] DR HEMATOLOGY [place] [address] 12/17/2023 8:30 AM EDT Office Visit Hematology/Oncology at [address] [phone] Antonio Brownlee MD [facility] [place] [address] Fani Haskins [address] HEMATOLOGY AND ONCOLOGY [place], [place] [address] 12/17/2023 9:00 AM EDT Infusion Hematology Oncology at [address] [phone] 12/30/2023 9:00 AM EST Office Visit Hematology/Oncology at [address] [phone] Antonio Brownlee MD [facility] [place] [address] Fani Haskins APRN [address] [place] [address] DR HEMATOLOGY AND ONCOLOGY [place], [place] [phone] 12/30/2023 9:30 AM EST Infusion Hematology Oncology at [address] [phone] documented as of this encounter Visit Diagnoses Not on filedocumented in this encounter Care Teams Manager Inventory Relationship Specialty Start Date End Date Jez Vance MD [address] [place] [address] PCP - General 01/07/10 documented as of this encounter
--- OUTSIDE RECORDS SUMMARY | 2023-12-03 01:14 | XMS_ITS | Encounter Summary ---
Author Organization [facility] Address One [facility] [place] [address] Care Team Providers Care Psych Specialist Name Role Phone Jez Vance MD Primary Care Provider +1 -[phone] Encounter Details Date Type Department Care Team (Late st Contact Info) Description 10/07/2022 Notes Only Radiation Oncology at [address] [phone] Hiral Roger, BEVERAGE STEWARD OFFICE OF CARE MANAGEMENT Social History Tobacco [...] this encounter Progress Notes * Hiral Roger, BEVERAGE STEWARD - 10/07/2022 11:41 AM EDT Reason for Referral: Brief assessment of social and emotional needs. Met with Benny after his sim today to introduce myself and role of 7th grade social studies teacher to assess/address barriers to getting to and through treatments; address support needs and connect with community services and resources as needed. Family/Social Supports: Benny identified his as his primary support. They have a daughter and a son. Their daughter is [facility] and their son is in [place]. He indicated he has good supports. Living Situation/Daily Activities/Transportation: Benny manages his daily chores and activities. Heis expecting 28 RT treatments. He does not expect any issues with transportation. Work/Finances/Insurance: Benny is retired. He has Medicare and [employer] for insurance. He did not have any [...] assessment Supportive Counseling Plan: Informed pt of BEVERAGE STEWARD availability and contact information. Will follow to assess/address psychosocial needs. IZA De Paz, AUTISM SPECIALIST, OSW-C Canteen Operator [facility] documented in this encounter Plan of Treatment Upcoming Encounters Date Type Department Care Team (Late st Contact Info) Description 12/03/2023 8:00 AM EDT Office Visit Hematology/Oncology at [address] [phone] Antonio Brownlee MD [facility] [place] [address] Fani Haskins [address] [place] [address] 12/03/2023 8:30 AM EDT Infusion Hematology Oncology at [address] [phone] 12/03/2023 9:00 AM EDT Clinical Support Hematology/Oncology at [address] [phone] [facility] DR [place] [address] 12/17/2023 8:30 AM EDT Office Visit Hematology/Oncology at [address] [phone] Antonio Brownlee MD [facility] [place] [address] Fani Haskins [address] [place] [address] 12/17/2023 9:00 AM EDT Infusion Hematology Oncology at [address] [phone] 12/30/2023 9:00 AM EST Office Visit Hematology/Oncology at [address] [phone] Antonio Brownlee MD [facility] [place] [address] Fani Haskins APRN [address] [place] [address] DR HEMATOLOGY AND ONCOLOGY [place], [place] [phone] 12/30/2023 9:30 AM EST Infusion Hematology Oncology at [address] [phone] documented as of this encounter Visit Diagnoses Not on filedocumented in this encounter Care Teams Psych Specialist Relationship Specialty Start Date End Date Jez Vance MD [address] [place] [address] PCP - General 01/07/10 documented as of this encounter
--- OUTSIDE RECORDS SUMMARY | 2023-12-03 01:14 | XMS_ITS | Encounter Summary ---
Author Organization Formerly [facility] Address One [facility] [place] [address] Care Team Providers Care Tourist Information Officer Name Role Phone Jez Vance MD Primary Care Provider +1 -[phone] Encounter Details Date Type Department Care Team (Late st Contact Info) Description 10/23/2022 8:55 AM EDT Office Visit Radiation Oncology at [address] [phone] Toro Hayes MD [address] [place] [address] [place] [address] Malignant neoplasm of prostate Social [...] from the original note were not included. [facility] Medicine Radiation Oncology Radiation Oncology On-treatment [...] 12/04/22 so that he can go to [place] for the winter. PSA recheck at end of treatment ([facility] or [facility]) Followup: Return to clinic next week for on treatment check. No orders of the defined types were placed in this encounter. National Cancer [place] (NCI) Comprehensive Cancer Center [employer] Commission on Cancer (ACS [place]err[place]) Accredited Cancer Program [employer] (ACR) Accredited Radiation Oncology [...] RT without changes. Toro Hayes MD, MS Claim Processor Radiation Oncology documented in this encounter Plan of Treatment Upcoming Encounters Date Type Department Care Team (Late st Contact Info) Description 12/03/2023 8:00 AM EDT Office Visit Hematology/Oncology at [address] [phone] Antonio Brownlee MD [facility] [place] [address] Fani Haskins APRN [address] [place] [address] HEMATOLOGY AND ONCOLOGY [place], [place] [address] 12/03/2023 8:30 AM EDT Infusion Hematology Oncology at [address] [phone] 12/03/2023 9:00 AM EDT Clinical Support Hematology/Oncology at [address] [phone] Nadege Howell, PALLAVI [facility] DR [place] [address] 12/17/2023 8:30 AM EDT Office Visit Hematology/Oncology at [address] [phone] Antonio Brownlee MD [facility] [place] [address] HEMATOLOGY AND ONCOLOGY [place], [place] [address] 12/17/2023 9:00 AM EDT Infusion Hematology Oncology at [address] [phone] 12/30/2023 9:00 AM EST Office Visit Hematology/Oncology at [address] [phone] Antonio Brownlee MD [facility] [place] [place] [address] [address] [place] [address] 12/30/2023 9:30 AM EST Infusion Hematology Oncology at [address] [phone] documented as of this encounter Visit Diagnoses Diagnosis Malignant neoplasm of prostate Malignant neoplasm of head of pancreas documented in this encounter Care Teams Tourist Information Officer Relationship Specialty Start Date End Date Jez Vance MD [address] [place] [address] PCP - General 01/07/10 documented as of this encounter
--- OUTSIDE RECORDS SUMMARY | 2023-12-03 01:14 | XMS_ITS | Encounter Summary ---
Author Organization [facility] Address One [facility] [place] [address] Care Team Providers Care Baker Apprentice Name Role Phone Jez Vance MD Primary Care Provider +1 [phone] Encounter Details Date Type Department Care Team [...] AM EDT Office Visit Hematology/Oncology at [address] [phone] Antonio Brownlee MD [facility] [place] [address] Fani Haskins [address] HEMATOLOGY AND ONCOLOGY [place], [place] [address] 12/03/2023 8:30 AM EDT Infusion Hematology Oncology at [address] [phone] 12/03/2023 9:00 AM EDT Clinical Support Hematology/Oncology at [address] [phone] [facility] DR [place] [address] 12/17/2023 8:30 AM EDT Office Visit Hematology/Oncology at [address] [phone] Antonio Brownlee MD [facility] [place] [place] [address] Fani Haskins [address] HEMATOLOGY AND ONCOLOGY [place], [place] [address] 12/17/2023 9:00 AM EDT Infusion Hematology Oncology at [address] [phone] 12/30/2023 9:00 AM EST Office Visit Hematology/Oncology at [address] [phone] Antonio Brownlee MD [facility] [place] [address] Fani Haskins APRN [address] [place] [address] DR HEMATOLOGY AND ONCOLOGY [place], [place] [phone] 12/30/2023 9:30 AM EST Infusion Hematology Oncology at [address] [phone] documented as of this encounter Visit Diagnoses Not on filedocumented in this encounter Care Teams Baker Apprentice Relationship Specialty Start Date End Date Jez Vance MD [address] [place] [address] PCP - General 01/07/10 documented as of this encounter
--- OUTSIDE RECORDS SUMMARY | 2023-12-03 01:14 | XMS_ITS | Encounter Summary ---
Author Organization [facility] Address [facility] [place] [address] Care Team Providers Care Entry Clerk Name Role Phone Jez Vance MD Primary Care Provider +1 [phone] Reason for Visit * Reason Comments Injections Lupron * Treatment/Therapy Plan Authorization (Routine) - Closed Specialty Diagnoses / Procedures Referred By Deena yao Referred To Contact Radiation Oncology / Hematology and Oncology Diagnoses Malignant neoplasm of prostate Procedures TC LEUPROLIDE ACETATE 7.5MG, FOR DEPOST SUSPENSION (LUPRON DEPOT) [id number] LUPRON DEPOT Toro Hayes MD [address] [place] [address] [place] [address] Toro Hayes MD [address] [place] [address] [place] [address] Referral ID Status Reason Start Date Expiration Date Visits Re quested Visits Authorized [id number] Closed 08/06/2022 08/06/2023 1 99 Encounter Details Date Type Department Care Team (Late st Contact Info) Description 08/13/2022 8:00 AM EDT Infusion Hematology Oncology at [address] [phone] Malignant neoplasm of prostate Social History Tobacco [...] AM EDT Office Visit Hematology/Oncology at [address] [phone] Antonio Brownlee MD [facility] [place] [address] HEMATOLOGY [place] [address] 12/03/2023 8:30 AM EDT Infusion Hematology Oncology at [address] [phone] 12/03/2023 9:00 AM EDT Clinical Support Hematology/Oncology at [address] [phone] [facility] HEMATOLOGY [place] [address] 12/17/2023 8:30 AM EDT Office Visit Hematology/Oncology at [address] [phone] Antonio Brownlee MD [facility] [place] [address] Fani Haskins [address] HEMATOLOGY AND ONCOLOGY [place], [place] [address] 12/17/2023 9:00 AM EDT Infusion Hematology Oncology at [address] [phone] 12/30/2023 9:00 AM EST Office Visit Hematology/Oncology at [address] [phone] Antonio Brownlee MD [facility] [place] [address] Fani Haskins APRN [address] [place] [address] DR HEMATOLOGY AND ONCOLOGY [place], [place] [address] 12/30/2023 9:30 AM EST Infusion Hematology Oncology at [address] [phone] documented as of this encounter Visit Diagnoses [...] Gluteal documented in this encounter Care Teams Entry Clerk Relationship Specialty Start Date End Date Jez Vance MD [address] [place] [address] PCP - General 01/07/10 documented as of this encounter
--- OUTSIDE RECORDS SUMMARY | 2023-12-03 01:14 | XMS_ITS | Encounter Summary ---
Author Organization [facility] Address One [facility] [place] [address] Care Team Providers Care Studio Musician Name Role Phone Jez Vance MD Primary Care Provider +1 -[phone] Encounter Details Date Type Department Care Team [...] 8:00 AM EDT Office Visit Hematology/Oncology at [address] [phone] Antonio Brownlee MD [facility] [place] [address] Fani Haskins [address] HEMATOLOGY AND ONCOLOGY [place], [place] [address] 12/03/2023 8:30 AM EDT Infusion Hematology Oncology at [address] [phone] 12/03/2023 9:00 AM EDT Clinical Support Hematology/Oncology at [address] [phone] [facility] DR [place] [address] 12/17/2023 8:30 AM EDT Office Visit Hematology/Oncology at [address] [phone] Antonio Brownlee MD [facility] [place] [address] Fani Haskins [address] HEMATOLOGY AND ONCOLOGY [place], [place] [address] 12/17/2023 9:00 AM EDT Infusion Hematology Oncology at [address] [phone] 12/30/2023 9:00 AM EST Office Visit Hematology/Oncology at [address] [phone] Antonio Brownlee MD [facility] [place] [address] Fani Haskins APRN [address] [place] [address] DR HEMATOLOGY AND ONCOLOGY [place], [place] [address] 12/30/2023 9:30 AM EST Infusion Hematology Oncology at [address] [phone] documented as of this encounter Visit Diagnoses Not on filedocumented in this encounter Care Teams Studio Musician Relationship Specialty Start Date End Date Jez Vance MD [address] [place] [address] PCP - General 01/07/10 documented as of this encounter
--- OUTSIDE RECORDS SUMMARY | 2023-12-03 01:14 | XMS_ITS | Encounter Summary ---
Author Organization [facility] Address [facility] [place] [address] Care Team Providers Care Logistics Manager Name Role Phone Jez Vance MD Primary Care Provider +1 -[phone] Reason for Visit * Reason Comments Injections * Treatment/Therapy Plan Authorization (Routine) - Closed Specialty Diagnoses / Procedures Referred By Deena yao Referred To Contact Radiation Oncology / Hematology and Oncology Diagnoses Malignant neoplasm of prostate Procedures TC LEUPROLIDE ACETATE 7.5MG, FOR DEPOST SUSPENSION (LUPRON DEPOT) [id number] LUPRON DEPOT Toro Hayes MD [address] [place] [address] [place] [address] Toro Hayes MD [address] [place] [address] [place] [address] Referral ID Status Reason Start Date Expiration Date Visits Re quested Visits Authorized [id number] Closed 08/06/2022 08/06/2023 1 99 Encounter Details Date Type Department Care Team (Late st Contact Info) Description 10/08/2022 8:30 AM EDT Infusion Hematology Oncology at [address] [phone] Malignant neoplasm of prostate Social History Tobacco [...] AM EDT Office Visit Hematology/Oncology at [address] [phone] Antonio Brownlee MD [facility] [place] [address] Fani Haskins [address] [place] [address] 12/03/2023 8:30 AM EDT Infusion Hematology Oncology at [address] [phone] 12/03/2023 9:00 AM EDT Clinical Support Hematology/Oncology at [address] [phone] [facility] DR [place] [address] 12/17/2023 8:30 AM EDT Office Visit Hematology/Oncology at [address] [phone] Antonio Brownlee MD [facility] [address] Fani Haskins [address] [place] [address] 12/17/2023 9:00 AM EDT Infusion Hematology Oncology at [address] [phone] 12/30/2023 9:00 AM EST Office Visit Hematology/Oncology at [address] [phone] Antonio Brownlee MD [facility] [place] [address] [address] HEMATOLOGY AND ONCOLOGY [place], [place] [address] 12/30/2023 9:30 AM EST Infusion Hematology Oncology at [address] [phone] documented as of this encounter Visit Diagnoses [...] mg documented in this encounter Care Teams Logistics Manager Relationship Specialty Start Date End Date Jez Vance MD [address] [place], [place] [address] PCP - General 01/07/10 documented as of this encounter
--- OUTSIDE RECORDS SUMMARY | 2023-12-03 01:14 | XMS_ITS | Encounter Summary ---
Author Organization [facility] Address [facility] [place] [address] Care Team Providers Care Pompom Maker Name Role Phone Jez Vance MD Primary Care Provider +1 -[phone] Reason for Visit * Reason Comments Injections Lupron * Treatment/Therapy Plan Authorization (Routine) - Closed Specialty Diagnoses / Procedures Referred By Deena yao Referred To Contact Radiation Oncology / Hematology and Oncology Diagnoses Malignant neoplasm of prostate Procedures TC LEUPROLIDE ACETATE 7.5MG, FOR DEPOST SUSPENSION (LUPRON DEPOT) [id number] LUPRON DEPOT Toro Hayes MD [address] [place] [address] [place] [address] Toro Hayes MD [address] [place] [address] [place] [address] Referral ID Status Reason Start Date Expiration Date Visits Re quested Visits Authorized [id number] Closed 08/06/2022 08/06/2023 1 99 Encounter Details Date Type Department Care Team (Late st Contact Info) Description 09/10/2022 9:00 AM EDT Infusion Hematology Oncology at [address] [phone] Malignant neoplasm of prostate Social History Tobacco [...] 8:00 AM EDT Office Visit Hematology/Oncology at [address] [phone] Antonio Brownlee MD [facility] [place] [address] Fani Haskins APRN [address] [place] [address] DR [place] [address] 12/03/2023 8:30 AM EDT Infusion Hematology Oncology at [address] [phone] 12/03/2023 9:00 AM EDT Clinical Support Hematology/Oncology at [address] [phone] [facility] HEMATOLOGY [place] [address] 12/17/2023 8:30 AM EDT Office Visit Hematology/Oncology at [address] [phone] Antonio Brownlee MD [facility] [place] [address] Fani Haskins APRN [address] HEMATOLOGY AND ONCOLOGY [place], [place] [address] 12/17/2023 9:00 AM EDT Infusion Hematology Oncology at [address] [phone] 12/30/2023 9:00 AM EST Office Visit Hematology/Oncology at [address] [phone] Antonio Brownlee MD [facility] [place] [address] HEMATOLOGY AND ONCOLOGY [place], [place] [address] 12/30/2023 9:30 AM EST Infusion Hematology Oncology at [address] [phone] documented as of this encounter Visit Diagnoses [...] Gluteal documented in this encounter Care Teams Pompom Maker Relationship Specialty Start Date End Date Jez Vance MD [address] [place] [address] PCP - General 01/07/10 documented as of this encounter
--- OUTSIDE RECORDS SUMMARY | 2023-12-03 01:14 | XMS_ITS | Encounter Summary ---
Author Organization Replaced By [facility] Address One [facility] [place] [address] Care Team Providers Care Home And Family Living Professor Name Role Phone eJz Vance MD Primary Care Provider +1 -[phone] Encounter Details Date Type Department Care Team [...] AM EDT Office Visit Hematology/Oncology at [address] [phone] Antonio Brownlee MD [facility] [place] [address] Fani Haskins [address] HEMATOLOGY AND ONCOLOGY [place], [place] [address] 12/03/2023 8:30 AM EDT Infusion Hematology Oncology at [address] [phone] 12/03/2023 9:00 AM EDT Clinical Support Hematology/Oncology at [address] [phone] [facility] DR [place] [address] 12/17/2023 8:30 AM EDT Office Visit Hematology/Oncology at [address] [phone] Antonio Brownlee MD [facility] [place] [address] Fani Haskins [address] HEMATOLOGY AND ONCOLOGY [place], [place] [address] 12/17/2023 9:00 AM EDT Infusion Hematology Oncology at [address] [phone] 12/30/2023 9:00 AM EST Office Visit Hematology/Oncology at [address] [phone] Antonio Brownlee MD [facility] [place] [address] Fani Haskins APRN [address] [place] [address] DR HEMATOLOGY AND ONCOLOGY [place], [place] [phone] 12/30/2023 9:30 AM EST Infusion Hematology Oncology at [address] [phone] documented as of this encounter Visit Diagnoses Not on filedocumented in this encounter Care Teams Home And Family Living Professor Relationship Specialty Start Date End Date Jez Vance MD [address] [place] [address] PCP - General 01/07/10 documented as of this encounter
--- OUTSIDE RECORDS SUMMARY | 2023-12-03 01:14 | XMS_ITS | Encounter Summary ---
Author Organization [facility] Address One [facility] [place] [address] Care Team Providers Care Brilliandeer Lopper Name Role Phone Jez Vance MD Primary Care Provider +1 -[phone] Encounter Details Date Type Department Care Team (Late st Contact Info) Description 09/09/2022 3:00 PM EDT Telephone Radiation Oncology at [address] [phone] Rad Nurse, [facility] Social [...] AM EDT Office Visit Hematology/Oncology at [address] [phone] Antonio Brownlee MD [facility] [place] [address] Fani Haskins APRN [address] [place] [address] DR HEMATOLOGY AND ONCOLOGY [place], [place] [phone] 12/03/2023 8:30 AM EDT Infusion Hematology Oncology at [address] [phone] 12/03/2023 9:00 AM EDT Clinical Support Hematology/Oncology at [address] [phone] [facility] HEMATOLOGY [place] [address] 12/17/2023 8:30 AM EDT Office Visit Hematology/Oncology at [address] [phone] Antonio Brownlee MD [facility] [place] [address] HEMATOLOGY AND ONCOLOGY [place], [place] [address] 12/17/2023 9:00 AM EDT Infusion Hematology Oncology at [address] [phone] 12/30/2023 9:00 AM EST Office Visit Hematology/Oncology at [address] [phone] Antonio Brownlee MD [facility] [place] [address] HEMATOLOGY AND ONCOLOGY [place], [place] [address] 12/30/2023 9:30 AM EST Infusion Hematology Oncology at [address] [phone] documented as of this encounter Visit Diagnoses Not on filedocumented in this encounter Care Teams Brilliandeer Lopper Relationship Specialty Start Date End Date Jez Vance MD [address] [place] [address] PCP - General 01/07/10 documented as of this encounter
--- OUTSIDE RECORDS SUMMARY | 2023-12-03 01:14 | XMS_ITS | Encounter Summary ---
Author Organization [facility] Address One [facility] [place] [address] Care Team Providers Care Instrument Assembly Supervisor Name Role Phone Jez Vance MD Primary Care Provider +1 -[phone] Encounter Details Date Type Department Care Team (Late st Contact Info) Description 09/16/2022 12:00 PM EDT Procedure visit Radiation Oncology at [address] [phone] Toro Hayes MD [address] [place] [address] [place] [address] Malignant neoplasm of prostate Social [...] A CT Simulation appointment will be at [facility] on: [ Date: 10/07/22 ] [ Arrive at: 10:30 am ] Arrive for your appointment with a comfortably full bladder. How to reach us: [phone] After Hours/Weekends- Please ask for the Radiation Oncologist to be paged documented in this encounter Progress Notes * Maryjo Reina RN - 09/16/2022 12:00 PM EDT Radiation Oncology Nurse Note [facility] [place], [place] Radiation Oncology Procedure Nursing Note Procedure: Prostate fiducial by Dr Toro Hayes and Gina Villafana Fusion Coil Lot Numbers: [ [id number] ] Time of patient arrival to clinic: 11:10 am See flowsheet for all vital signs and medication list updated info. Pre procedure questions: [N/A] If Applicable: He confirms taking lorazepam 1mg po at (time): He comes to clinic accompanied by a taxi driver supervisor. [ X ] reviewed allergies. Specifically confirmed [...] were reviewed with him. He has the [facility] phone number and verbalized understanding to ask for the plastic injection mold maker radiation oncologist if he needs to call after clinic hours. [ N/A ] If applicable: He was reminded to not drive home due to Lorazepam. Graining Machine Operator: Self Time of discharge: 2:20 pm vital signs stable,and gait steady. * Gina Villafana MD - 09/16/2022 12:00 PM EDT Identification: Benny Zurita is a 82 y.o. 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 who has consented for external beam radiotherapy. Procedure: Gold coil fiducial marker placement within the prostate for radiation localization during therapy. Physician: Toro aHyes MD & Gina Villafana MD Anesthesia: Local [...] to undergo MRI of the prostate at [facility] on 09/22. Attending MD Attestation: I was present for the above procedure. I agree with the details as written above. Toro Hayes MD, MS Tumble Tailstock Turret Lathe Operator Radiation Oncology documented in this encounter Plan of Treatment Upcoming Encounters Date Type Department Care Team (Late st Contact Info) Description 12/03/2023 8:00 AM EDT Office Visit Hematology/Oncology at [address] [phone] Antonio Brownlee MD [facility] [place] [address] Fani Haskins [address] HEMATOLOGY AND ONCOLOGY [place], [place] [address] 12/03/2023 8:30 AM EDT Infusion Hematology Oncology at [address] [phone] 12/03/2023 9:00 AM EDT Clinical Support Hematology/Oncology at [address] [phone] [facility] DR [place] [address] 12/17/2023 8:30 AM EDT Office Visit Hematology/Oncology at [address] [phone] Antonio Brownlee MD [facility] [place] [address] [address] HEMATOLOGY AND ONCOLOGY [place], [place] [address] 12/17/2023 9:00 AM EDT Infusion Hematology Oncology at [address] [phone] 12/30/2023 9:00 AM EST Office Visit Hematology/Oncology at [address] [phone] Antonio Brownlee MD [facility] [place] [address] Fani Haskins APRN [address] [place] [address] DR [place] [address] 12/30/2023 9:30 AM EST Infusion Hematology Oncology at [address] [phone] documented as of this encounter Visit Diagnoses Diagnosis Malignant neoplasm of prostate Malignant neoplasm of head of pancreas documented in this encounter Care Teams Instrument Assembly Supervisor Relationship Specialty Start Date End Date Jez Vance MD [address] [place] [address] PCP - General 01/07/10 documented as of this encounter
--- OUTSIDE RECORDS SUMMARY | 2023-12-03 01:14 | XMS_ITS | Encounter Summary ---
Author Organization [facility] Address One [facility] [place] [address] Care Team Providers Care Chrome Tanning Drum Operator Name Role Phone Jez Vance MD Primary Care Provider +1 -[phone] Encounter Details Date Type Department Care Team [...] 8:00 AM EDT Office Visit Hematology/Oncology at [address] [phone] Antonio Brownlee MD [facility] [place] [address] Fani Haskins [address] HEMATOLOGY AND ONCOLOGY [place], [place] [address] 12/03/2023 8:30 AM EDT Infusion Hematology Oncology at [address] [phone] 12/03/2023 9:00 AM EDT Clinical Support Hematology/Oncology at [address] [phone] [facility] DR HEMATOLOGY [place] [address] 12/17/2023 8:30 AM EDT Office Visit Hematology/Oncology at [address] [phone] Antonio Brownlee MD [facility] [place] [address] Fani Haskins [address] HEMATOLOGY AND ONCOLOGY [place], [place] [address] 12/17/2023 9:00 AM EDT Infusion Hematology Oncology at [address] [phone] 12/30/2023 9:00 AM EST Office Visit Hematology/Oncology at [address] [phone] Antonio Brownlee MD [facility] [place] [place] [address] Fani Haskins APRN [address] [place] [address] DR HEMATOLOGY AND ONCOLOGY [place], [place] [address] 12/30/2023 9:30 AM EST Infusion Hematology Oncology at [address] [phone] documented as of this encounter Visit Diagnoses Not on filedocumented in this encounter Care Teams Chrome Tanning Drum Operator Relationship Specialty Start Date End Date Jez Vance MD [address] [place] [address] PCP - General 01/07/10 documented as of this encounter
--- OUTSIDE RECORDS SUMMARY | 2023-12-03 01:14 | XMS_ITS | Encounter Summary ---
Author Organization [facility] Address One [facility] [place] [address] Care Team Providers Care Buggy Man Name Role Phone Jez Vance MD Primary Care Provider +1 -[phone] Encounter Details Date Type Department Care Team [...] 8:00 AM EDT Office Visit Hematology/Oncology at [address] [phone] Antonio Brownlee MD [facility] [place] [address] [address]ask[address] HEMATOLOGY AND ONCOLOGY [place], [place] [address] 12/03/2023 8:30 AM EDT Infusion Hematology Oncology at [address] [phone] 12/03/2023 9:00 AM EDT Clinical Support Hematology/Oncology at [address] [phone] [facility] DR [place] [address] 12/17/2023 8:30 AM EDT Office Visit Hematology/Oncology at [address] [phone] Antonio Brownlee MD [facility] [place] [address] Fani Haskins [address] HEMATOLOGY AND ONCOLOGY [place], [place] [address] 12/17/2023 9:00 AM EDT Infusion Hematology Oncology at [address] [phone] 12/30/2023 9:00 AM EST Office Visit Hematology/Oncology at [address] [phone] Antonio Brownlee MD [facility] [place] [address] Fani Haskins APRN [address] [place] [address] DR HEMATOLOGY AND ONCOLOGY [place], [place] [id number] 12/30/2023 9:30 AM EST Infusion Hematology Oncology at [address] [phone] documented as of this encounter Visit Diagnoses Not on filedocumented in this encounter Care Teams Buggy Man Relationship Specialty Start Date End Date Jez Vance MD [address] [place] [address] PCP - General 01/07/10 documented as of this encounter
--- OUTSIDE RECORDS SUMMARY | 2023-12-03 01:14 | XMS_ITS | Encounter Summary ---
Author Organization [facility] Address One [facility] [place] [address] Care Team Providers Care Idea Worker Name Role Phone Jez Vance MD Primary Care Provider +1 -[phone] Encounter Details Date Type Department Care Team [...] 8:00 AM EDT Office Visit Hematology/Oncology at [address] [phone] Antonio Brownlee MD [facility] [address] [address] HEMATOLOGY AND ONCOLOGY [place], [place] [address] 12/03/2023 8:30 AM EDT Infusion Hematology Oncology at [address] [phone] 12/03/2023 9:00 AM EDT Clinical Support Hematology/Oncology at [address] [phone] [facility] DR [place] [address] 12/17/2023 8:30 AM EDT Office Visit Hematology/Oncology at [address] [phone] Antonio Brownlee MD [facility] [address] F[address] Haskins [address] HEMATOLOGY AND ONCOLOGY [place], [place] [address] 12/17/2023 9:00 AM EDT Infusion Hematology Oncology at [address] [phone] 12/30/2023 9:00 AM EST Office Visit Hematology/Oncology at [address] [phone] Antonio Brownlee MD [facility] [place] [address] Fani Haskins APRN [address] [place] [address] DR HEMATOLOGY AND ONCOLOGY [place], [place] [address] 12/30/2023 9:30 AM EST Infusion Hematology Oncology at [address] [phone] documented as of this encounter Visit Diagnoses Not on filedocumented in this encounter Care Teams Idea Worker Relationship Specialty Start Date End Date Jez Vance MD [address] [place] [address] PCP - General 01/07/10 documented as of this encounter
--- OUTSIDE RECORDS SUMMARY | 2023-12-03 01:14 | XMS_ITS | Encounter Summary ---
Author Organization [facility] Address One [facility] [place] [address] Care Team Providers Care Staff Mechanical Engineer Name Role Phone Jez Vance MD Primary Care Provider [phone] [phone] Encounter Details Date Type Department Care Team [...] AM EDT Office Visit Hematology/Oncology at [address] [phone] Antonio Brownlee MD [facility] [place] [address] [address] HEMATOLOGY AND ONCOLOGY [place], [place] [address] 12/03/2023 8:30 AM EDT Infusion Hematology Oncology at [address] [phone] 12/03/2023 9:00 AM EDT Clinical Support Hematology/Oncology at [address] [phone] [facility] DR HEMATOLOGY [place] [address] 12/17/2023 8:30 AM EDT Office Visit Hematology/Oncology at [address] [phone] Antonio Brownlee MD [facility] [place] [address] Fani Haskins [address] HEMATOLOGY AND ONCOLOGY [place], [place] [address] 12/17/2023 9:00 AM EDT Infusion Hematology Oncology at [address] [phone] 12/30/2023 9:00 AM EST Office Visit Hematology/Oncology at [address] [phone] Antonio Brownlee MD [facility] [place] [address] Fani Haskins APRN [address] [place] [address] DR HEMATOLOGY AND ONCOLOGY [place], [place] [address] 12/30/2023 9:30 AM EST Infusion Hematology Oncology at [address] [phone] documented as of this encounter Visit Diagnoses Not on filedocumented in this encounter Care Teams Staff Mechanical Engineer Relationship Specialty Start Date End Date Jez Vance MD [address] [place] [address] PCP - General 01/07/10 documented as of this encounter
--- OUTSIDE RECORDS SUMMARY | 2023-12-03 01:14 | XMS_ITS | Encounter Summary ---
Author Organization [facility] Address [facility] [place] [address] Care Team Providers Care Infantry Weapons Crewmember Name Role Phone Jez Vance MD Primary Care Provider +1 [phone] Reason for Visit * Reason Comments Injections * Treatment/Therapy Plan Authorization (Routine) - Closed Specialty Diagnoses / Procedures Referred By Deena yao Referred To Contact Radiation Oncology / Hematology and Oncology Diagnoses Malignant neoplasm of prostate Procedures TC LEUPROLIDE ACETATE 7.5MG, FOR DEPOST SUSPENSION (LUPRON DEPOT) [id number] LUPRON DEPOT Toro Hayes MD [address] [place] [address] [place] [address] Toro Hayes MD [address] [place] [address] [place] [address] Referral ID Status Reason Start Date Expiration Date Visits Re quested Visits Authorized [id number] Closed 08/06/2022 08/06/2023 1 99 Encounter Details Date Type Department Care Team (Late st Contact Info) Description 11/05/2022 8:00 AM EDT Infusion Hematology Oncology at [address] [phone] Malignant neoplasm of prostate Social History Tobacco [...] 8:00 AM EDT Office Visit Hematology/Oncology at [address] [phone] Antonio Brownlee MD [facility] [place] [address] Fani Haskins [address] HEMATOLOGY [place] [address] 12/03/2023 8:30 AM EDT Infusion Hematology Oncology at [address] [phone] 12/03/2023 9:00 AM EDT Clinical Support Hematology/Oncology at [address] [phone] [facility] DR HEMATOLOGY [place] [address] 12/17/2023 8:30 AM EDT Office Visit Hematology/Oncology at [address] [phone] Antonio Brownlee MD [facility] [place] [address] Fani Haskins [address] HEMATOLOGY [place] [address] 12/17/2023 9:00 AM EDT Infusion Hematology Oncology at [address] [phone] 12/30/2023 9:00 AM EST Office Visit Hematology/Oncology at [address] [phone] Antonio Brownlee MD [facility] [place] [address] Fani Haskins, [address] HEMATOLOGY AND ONCOLOGY [place], [place] [address] 12/30/2023 9:30 AM EST Infusion Hematology Oncology at [address] [phone] documented as of this encounter Visit Diagnoses [...] mg documented in this encounter Care Teams Infantry Weapons Crewmember Relationship Specialty Start Date End Date Jez Vance MD [address] [place], [place] [id number] PCP - General 01/07/10 documented as of this encounter
--- OUTSIDE RECORDS SUMMARY | 2023-12-03 01:14 | XMS_ITS | Encounter Summary ---
Author Organization [facility] Address One [facility] [place] [address] Care Team Providers Care Pharmaceutical Botanist Name Role Phone Jez Vance MD Primary Care Provider +1 [phone] Encounter Details Date Type Department Care Team [...] AM EDT Office Visit Hematology/Oncology at [address] [phone] Antonio Brownlee MD [facility] [place] [address] Fani Haskins [address] HEMATOLOGY AND ONCOLOGY [place], [place] [address] 12/03/2023 8:30 AM EDT Infusion Hematology Oncology at [address] [phone] 12/03/2023 9:00 AM EDT Clinical Support Hematology/Oncology at [address] [phone] [facility] DR HEMATOLOGY [place] [address] 12/17/2023 8:30 AM EDT Office Visit Hematology/Oncology at [address] [phone] Antonio Brownlee MD [facility] [place] [address] Fani Haskins [address] HEMATOLOGY AND ONCOLOGY [place], [place] [address] 12/17/2023 9:00 AM EDT Infusion Hematology Oncology at [address] [phone] 12/30/2023 9:00 AM EST Office Visit Hematology/Oncology at [address] [phone] Antonio Brownlee MD [facility] [place] [address] Fani Haskins APRN [address] [place] [address] DR HEMATOLOGY AND ONCOLOGY [place], [place] [phone] 12/30/2023 9:30 AM EST Infusion Hematology Oncology at [address] [phone] documented as of this encounter Visit Diagnoses Not on filedocumented in this encounter Care Teams Pharmaceutical Botanist Relationship Specialty Start Date End Date Jez Vance MD [address] [place] [address] PCP - General 01/07/10 documented as of this encounter
--- OUTSIDE RECORDS SUMMARY | 2023-12-03 01:14 | XMS_ITS | Encounter Summary ---
Author Organization [facility] Address One [facility] [place] [address] Care Team Providers Care Erisa Attorney Name Role Phone Jez Vance MD Primary Care Provider +1 [phone] Encounter Details Date Type Department Care Team [...] 8:00 AM EDT Office Visit Hematology/Oncology at [address] [phone] Antonio Brownlee MD [facility] [place] [address] [address] HEMATOLOGY AND ONCOLOGY [place], [place] [address] 12/03/2023 8:30 AM EDT Infusion Hematology Oncology at [address] [phone] 12/03/2023 9:00 AM EDT Clinical Support Hematology/Oncology at [address] [phone] [facility] DR HEMATOLOGY [place] [address] 12/17/2023 8:30 AM EDT Office Visit Hematology/Oncology at [address] [phone] Antonio Brownlee MD [facility] [place] [address] Fani Haskins [address] HEMATOLOGY AND ONCOLOGY [place], [place] [address] 12/17/2023 9:00 AM EDT Infusion Hematology Oncology at [address] [phone] 12/30/2023 9:00 AM EST Office Visit Hematology/Oncology at [address] [phone] Antonio Brownlee MD [facility] [place] [address] Fani Haskins APRN [address] [place] [address] DR HEMATOLOGY AND ONCOLOGY [place], [place] [phone] 12/30/2023 9:30 AM EST Infusion Hematology Oncology at [address] [phone] documented as of this encounter Visit Diagnoses Not on filedocumented in this encounter Care Teams Erisa Attorney Relationship Specialty Start Date End Date Jez Vance MD [address] [place] [address] PCP - General 01/07/10 documented as of this encounter
--- OUTSIDE RECORDS SUMMARY | 2023-12-03 01:14 | XMS_ITS | Encounter Summary ---
Author Organization [facility] Address One [facility] [place] [address] Care Team Providers Care Pharmacy Benefit Manager Name Role Phone Jez Vance MD Primary Care Provider +1 [phone] Encounter Details Date Type Department Care Team [...] in a prison (including now)? No 08/06/2022 Sex and Gender Information Value Date Recorded Sex Assigned at Not on file Gender Identity Not on file Sexual Orientation Not on file documented as of this encounter Plan of Treatment Upcoming Encounters Date Type Department Care Team (Late st Contact Info) Description 12/03/2023 8:00 AM EDT Office Visit Hematology/Oncology at [address] [phone] Antonio Brownlee MD [facility] [place] [address] Fani Haskins [address] HEMATOLOGY AND ONCOLOGY [place], [place] [address] 12/03/2023 8:30 AM EDT Infusion Hematology Oncology at [address] [phone] 12/03/2023 9:00 AM EDT Clinical Support Hematology/Oncology at [address] [phone] [facility] DR [place] [address] 12/17/2023 8:30 AM EDT Office Visit Hematology/Oncology at [address] [phone] Antonio Brownlee MD [facility] [place] [address] Fani Haskins [address] HEMATOLOGY AND ONCOLOGY [place], [place] [address] 12/17/2023 9:00 AM EDT Infusion Hematology Oncology at [address] [phone] 12/30/2023 9:00 AM EST Office Visit Hematology/Oncology at [address] [phone] Antonio Brownlee MD [facility] [place] [address] Fani Haskins APRN [address] [place] [address] DR HEMATOLOGY AND ONCOLOGY [place], [place] [phone] 12/30/2023 9:30 AM EST Infusion Hematology Oncology at [address] [phone] documented as of this encounter Visit Diagnoses Not on filedocumented in this encounter Care Teams Pharmacy Benefit Manager Relationship Specialty Start Date End Date Jez Vance MD [address] [place] [address] PCP - General 01/07/10 documented as of this encounter
--- OUTSIDE RECORDS SUMMARY | 2023-12-03 01:14 | XMS_ITS | Encounter Summary ---
Author Organization [facility] Address One [facility] [place] [address] Care Team Providers Care Insurance Claims Representative Name Role Phone Jez Vance MD Primary Care Provider +1 -[phone] Encounter Details Date Type Department Care Team (Late st Contact Info) Description 10/30/2022 8:55 AM EDT Office Visit Radiation Oncology at [address] [phone] Toro Hayes MD [address] [place] [address] [place] [address] Malignant neoplasm of prostate Social [...] in a correction (including now)? No 08/06/2022 Sex and Gender [...] from the original note were not included. [facility] Medicine Radiation Oncology Radiation Oncology On-treatment Visit [...] on 12/04/22 so thathe can go to [place] for the winter. LUTS Discontinue Cialis and begin Flomax 0.4mg qhs (sent to pharmacy). NSAIDS prn. Will reassess next week. Followup: Return to clinic next week for on treatment check. PSA recheck at end of treatment ([facility] or [place] [facility]) No orders of the defined types were placed in this encounter. National [facility] [place] (NCI) [facility] [employer] Commission on Cancer (ACS [place]) Accredited Cancer Program [employer] (ACR) Accredited Radiation Oncology [...] mgmt per above. Toro Hayes MD, [place] [facility] Director Radiation Oncology documented in this encounter Plan of Treatment Upcoming Encounters Date Type Department Care Team (Late st Contact Info) Description 12/03/2023 8:00 AM EDT Office Visit Hematology/Oncology at [address] [phone] Antonio Brownlee MD [facility] [place] [address] Fani Haskins APRN [address] [place] [address] DR HEMATOLOGY AND ONCOLOGY [place], [place] [address] 12/03/2023 8:30 AM EDT Infusion Hematology Oncology at [address] [phone] 12/03/2023 9:00 AM EDT Clinical Support Hematology/Oncology at [address] [phone] [facility] DR [place] [address] 12/17/2023 8:30 AM EDT Office Visit Hematology/Oncology at [address] [phone] Antonio Brownlee MD [facility] [place] [address] Fani Haskins [address] HEMATOLOGY AND ONCOLOGY [place], [place] [address] 12/17/2023 9:00 AM EDT Infusion Hematology Oncology at [address] [phone] 12/30/2023 9:00 AM EST Office Visit Hematology/Oncology at [address] [phone] Antonio Brownlee MD [facility] [place] [address] Fani Haskins [address] HEMATOLOGY AND ONCOLOGY [place], [place] [address] 12/30/2023 9:30 AM EST Infusion Hematology Oncology at [address] [phone] documented as of this encounter Visit Diagnoses Diagnosis Malignant neoplasm of prostate Malignant neoplasm of head of pancreas documented in this encounter Care Teams Insurance Claims Representative Relationship Specialty Start Date End Date Jez Vance MD [address] [place] [address] PCP - General 01/07/10 documented as of this encounter
--- OUTSIDE RECORDS SUMMARY | 2023-12-03 01:14 | XMS_ITS | Encounter Summary ---
Author Organization [facility] Address One [facility] [place] [address] Care Team Providers Care Billet Straightener Name Role Phone Jez Vance MD Primary Care Provider +1 [phone] Encounter Details Date Type Department Care Team [...] AM EDT Office Visit Hematology/Oncology at [address] [phone] Antonio Brownlee MD [facility] [place] [address] [address] HEMATOLOGY AND ONCOLOGY [place], [place] [address] 12/03/2023 8:30 AM EDT Infusion Hematology Oncology at [address] [phone] 12/03/2023 9:00 AM EDT Clinical Support Hematology/Oncology at [address] [phone] [facility] DR [place] [address] 12/17/2023 8:30 AM EDT Office Visit Hematology/Oncology at [address] [phone] Antonio Brownlee MD [facility] [place] [address] Fani Haskins [address] HEMATOLOGY AND ONCOLOGY [place], [place] [address] 12/17/2023 9:00 AM EDT Infusion Hematology Oncology at [address] [phone] 12/30/2023 9:00 AM EST Office Visit Hematology/Oncology at [address] [phone] Antonio Brownlee MD [facility] [place] [address] Fani Haskins APRN [address] [place] [address] DR HEMATOLOGY AND ONCOLOGY [place], [place] [phone] 12/30/2023 9:30 AM EST Infusion Hematology Oncology at [address] [phone] documented as of this encounter Visit Diagnoses Not on filedocumented in this encounter Care Teams Billet Straightener Relationship Specialty Start Date End Date Jez Vance MD [address] [place] [address] PCP - General 01/07/10 documented as of this encounter
--- OUTSIDE RECORDS SUMMARY | 2023-12-03 01:14 | XMS_ITS | Encounter Summary ---
Author Organization [facility] Address One [facility] [place] [address] Care Team Providers Care Lead Programmer Analyst Name Role Phone Jez Vance MD Primary Care Provider +1 [phone] Encounter Details Date Type Department Care Team (Late st Contact Info) Description 09/09/2022 Refill Radiation Oncology at [address] [phone] Alanis Meyer, RN Malignant neoplasm [...] Time: 11:30 Time of Procedure: 12:00 Location: [place], [place] Why Fiducial Placement or also known [...] will be done at : [ ] [facility] at the Radiation Oncology Department section 2K [ x ] [facility] [place], [place] [Date:10/07/2022 ] [Time: arrive at 10:30 ] For proper visualization of prostate, it is required that you have a moderately full bladder. This will require you to arrive 30 minutes before scheduled appointment and drink 2 glasses of water upon arrival. There are no restrictions with eating. How to reach us: [facility] [phone] For weekends and after hours: Call [facility] ask for the sap business objects consultant radiation oncologist documented in this encounter Plan of Treatment Upcoming Encounters Date Type Department Care Team (Late st Contact Info) Description 12/03/2023 8:00 AM EDT Office Visit Hematology/Oncology at [address] [phone] Antonio Brownlee MD [facility] [place] [address] Fani Haskins APRN [address] [place] [address] DR HEMATOLOGY AND ONCOLOGY [place], [place] [address] 12/03/2023 8:30 AM EDT Infusion Hematology Oncology at [address] [phone] 12/03/2023 9:00 AM EDT Clinical Support Hematology/Oncology at [address] [phone] [facility] DR HEMATOLOGY [place] [address] 12/17/2023 8:30 AM EDT Office Visit Hematology/Oncology at [address] [phone] Antonio Brownlee MD [facility] [place] [address] HEMATOLOGY AND ONCOLOGY [place], [place] [address] 12/17/2023 9:00 AM EDT Infusion Hematology Oncology at [address] [phone] 12/30/2023 9:00 AM EST Office Visit Hematology/Oncology at [address] [phone] Antonio Brownlee MD [facility] [place] [address] Fani Haskins, [address] HEMATOLOGY AND ONCOLOGY [place], [place] [address] 12/30/2023 9:30 AM EST Infusion Hematology Oncology at [address] [phone] documented as of this encounter Visit Diagnoses Diagnosis Malignant neoplasm of prostate Malignant neoplasm of head of pancreas documented in this encounter Care Teams Lead Programmer Analyst Relationship Specialty Start Date End Date Jez Vance MD [address] [place] [address] PCP - General 01/07/10 documented as of this encounter
--- OUTSIDE RECORDS SUMMARY | 2023-12-03 01:14 | XMS_ITS | Encounter Summary ---
Author Organization [facility] Address One [facility] [place] [address] Care Team Providers Care Window Trimmer Name Role Phone Jez Vance MD Primary Care Provider +1 -[phone] Encounter Details Date Type Department Care Team [...] 8:00 AM EDT Office Visit Hematology/Oncology at [address] [phone] Antonio Brownlee MD [facility] [place] [address] Fani Haskins [address] HEMATOLOGY AND ONCOLOGY [place], [place] [address] 12/03/2023 8:30 AM EDT Infusion Hematology Oncology at [address] [phone] 12/03/2023 9:00 AM EDT Clinical Support Hematology/Oncology at [address] [phone] [facility] [place] [address] 12/17/2023 8:30 AM EDT Office Visit Hematology/Oncology at [address] [phone] Antonio Brownlee MD [facility] [place] [address] Fani Haskins [address] HEMATOLOGY AND ONCOLOGY [place], [place] [address] 12/17/2023 9:00 AM EDT Infusion Hematology Oncology at [address] [phone] 12/30/2023 9:00 AM EST Office Visit Hematology/Oncology at [address] [phone] Antonio Brownlee MD [facility] [place] [address] Fani Haskins APRN [address] [place] [address] DR HEMATOLOGY AND ONCOLOGY [place], [place] [address] 12/30/2023 9:30 AM EST Infusion Hematology Oncology at [address] [phone] documented as of this encounter Visit Diagnoses Not on filedocumented in this encounter Care Teams Window Trimmer Relationship Specialty Start Date End Date Jez Vance MD [address] [place] [address] PCP - General 01/07/10 documented as of this encounter
[2023-12-03] MEDS: Normal Saline Flush 10 ML SYR IVP (07:19)
[2023-12-03 08:00] LABS: Abs Immature Grans 0.01 10^3/uL (0.0-0.06); Absolute Basophil Count 0.03 10^3/uL (0.0-0.2); Absolute Lymphocyte Count 0.81 10^3/uL (1.2-3.4); Absolute Monocyte Count 0.46 10^3/uL (0.1-0.8); Absolute Neutrophil Count 3.24 10^3/uL (1.2-6.7); Basophils % 0.6 %; Eosinophils % 4.2 %; HGB 12.6 g/dL (13.5-17.5); Immature Grans % 0.2 %; Lymphocytes % 17.1 %; MCH 33.5 pg (27.0-33.0); MCV 96 fL (80-95); MPV 10.9 fL (8.0-11.0); Monocytes % 9.7 %; Neutrophils % 68.2 %; Platelet Count 172 10^3/uL (130-400); RBC 3.76 10^6/uL (4.36-5.78); RDW 13.8 % (11.8-14.1); RDW-SD 47.9 fL; WBC 4.75 10^3/uL (4.4-10.8)
[2023-12-03 08:15] LABS: ALT 30 U/L (16-63); AST 13 U/L (15-37); Albumin 3.1 g/dL (3.4-5.0); Alkaline Phosphatase 122 U/L (46-116); Anion Gap 10.3 mmol/L (3-11); BUN 10 mg/dL (7-18); Bilirubin, Total 0.48 mg/dL (0.2-1.0); CO2 26.7 mmol/L (21.0-32.0); CREATININE 0.7 mg/dL (0.70-1.30); Calcium 8.8 mg/dL (8.5-10.1); Chloride 105 mmol/L (98-107); Estimated GFR 92.57 (mL/min/1.73m2); Glucose 166 mg/dL (74-106); Potassium 3.7 mmol/L (3.5-5.1); Sodium 142 mmol/L (136-145); Total Protein 6.6 g/dL (6.4-8.2)
[2023-12-03 20:11] LABS: CA 19-9 104 U/mL (<35)
== END 2023-12-16 23:59 | disposition home or self-care (01) ==
LOC: INF 01:01
PROVIDERS: PCP Family Medicine; Visit Provider Internal Medicine Hematology & Oncology
DX: C25.0 Malignant neoplasm of head of pancreas (principal); Z45.2 Encounter for adjustment and management of vascular access device
CPT/HCPCS: 36591; 80053; 85025; 86301

== ENCOUNTER 2023-12-05 03:47 | Outpatient (RCR) | payer MEDICARE, OTHER, SELFPAY ==
--- OUTSIDE RECORDS SUMMARY | 2023-11-21 00:06 | XMS_ITS | Clinical Summary ---
Author Organization [facility] Address [address] [place] [address] Care Team Providers Care Horseshoer Name Role Phone Jez Vance MD Primary Care Provider [phone] [phone] Social History Tobacco Use Types Packs/Day Years Used Date Smoking Tobacco: Never Assessed Sex and Gender Information Value Date Recorded Sex Assigned at Not on file Gender Identity Not on file Sexual Orientation Not on file Plan of Treatment Health Maintenance Due Date Last Done Comments RSV Immunization ( o r 60+ Years) (1 - 1-dose 60+ series) 2002 Fall Risk Screening 06/22/2007 COVID-19 Vaccine ( season) 2023 Care Teams Horseshoer Relationship Specialty Start Date End Date Jez Vance MD [address] [place] [address] PCP - General 08/20/14
--- OUTSIDE RECORDS SUMMARY | 2023-11-21 00:06 | XMS_ITS | Encounter Summary ---
Author Organization [facility] Address [address] [place] [address] Care Team Providers Care Physical Education Specialist Name Role Phone Devorah Flowers MD Primary Care Provider [phone] Encounter Details Date Type Department Care Team (Late st Contact Info) Description 08/14/2009 Results Only [facility] - [facility] [address] [place] [id number] Jair Thomas MD [address] [place] [address] Social History Tobacco Use Types Packs/Day Years Used Date Smoking Tobacco: Never Assessed Sex and Gender Information Value Date Recorded Sex Assigned at Not on file Gender Identity Not on file Sexual Orientation Not on file documented as of this encounter Plan of Treatment Not on file documented as of this encounter Procedures Procedure Name Priority Date/Time Associated Diagnosis Comments SURGICAL PATHOLOGY Routine 08/14/2009 0:00 EDT documented in this encounter Results * SURGICAL PATHOLOGY (08/14/2009 0:00 EDT) Pathology Report: SURGICAL PATHOLOGY REPORT ? Reports generated via electronic interface contain original data; ? however they are lacking the format of the original report. ? Caution should be taken when reading/interpreti ng unformatted reports. ? Name: ? COLIN, KIA L ? Accession #: ? [id number] ? : ? 1940 (Age: 69) ??M ? Collect Date: ? 08/14/2009 ? Location: ? [facility] ? Receive Date: ? 08/15/2009 ? Provider: JAIR THOMAS MD ? Copy to: BRII H GENERMADELIN MD ? Final Pathologic Diagnosis: ? Stomach, antrum, biopsies: ? - Reactive gastropathy with focal acute surface inflammation. ? Document reviewed and electronically signed by: ? Ramon Archuleta, MD ? Report ??Date: 08/21/2009 17:06 ? By the signature above, the attending physician certifies that he/she has ? personally conducted a gross and/or microscopic examination of the described ? specimens and rendered or confirmed the above diagnosis. ? Specimen(s) Received: ? Antrum ? Clinical History: ? Heme (+) stools; area of erythema and superficial ulceration ? Gross Description: ? Received in Hollande's fixative labelled Colin, Kia and antrum are two de la garza-pink soft tissues measuring 0.2 x 0.2 x 0.2 cm and 0.4 x 0.2 x 0.2 cm. ?? The specimen is entirely submitted in one cassette. /eileen ? End of Report ? [facility] 08/14/2009 08/15/2009 16: 45 EDT Jair Thomas MD PATHOLOGY ORDERABLES COLIN [facility] [address] [place] [address] documented in this encounter Visit Diagnoses Not on filedocumented in this encounter Care Teams Physical Education Specialist Relationship Specialty Start Date End Date Devorah Flowers MD [address] [place] [address] PCP - General 08/15/09 08/19/14 documented as of this encounter
--- OUTSIDE RECORDS SUMMARY | 2023-11-21 00:06 | XMS_ITS ---
Author Organization [facility] Address [address] [place], [place] [address] Care Team Providers Care Spar Finisher Name Role Phone Rajiv MERCEDES, Jez Primary Care Provider [phone] REASON FOR VISIT F/U appt Medications Medication SIG (Take, Route, Frequency, Duration) Notes Start Date End Date Status Lupron Depot (6-Month) 45 MG as directed Intramuscular every 6 months 11/27/2022 Active Ibuprofen 400 MG 1-2 tablets with alejandrina d or milk as needed Orally Once a day at bedtime 11/27/2022 Active Losartan Potassium 50 MG 1 tablet Orally Twice a day for 90 days If BP>140/90 Active MiraLax 17 GM 1 packet mixed with 8 ounces of fluid Orally Once a day 10/27/2023 Active Tamsulosin HCl 0.4 MG 1 capsule Orally O nce a day at bedtime for 90 days 10/27/2023 Active Singulair 10 MG 1 tablet in the even ing Orally Once a day for 90 days Active Simvastatin 20 MG 1 tablet in the even ing Orally Once a day for 30 days Active Senna-Docusate Sodium 8.6-50 MG 2 tablets Orally Twice a day 10/27/2023 Active Social History Sex Assigned At : Social History Observation Description Sex Assigned At Male Encounters Encounter Location Date Provider Diagnosis [address] [id number] 11/16/2023 Jez Anderson I49.8 Assessments Encounter Date Diagnosis (ICD Code) Assessment Notes Treatment Notes Treatment Clinical Notes 11/16/2023 Justin (ICD-10 - I49.8) 11/16/[address] Jez Vance by Kenny Sy, [employer] medical interpreter, on 11/16/2023. I, Dr. Jez Vance, have personally reviewed and agreed with the information entered by the scribe. Plan Of Treatment Treatment Notes Assessment Notes Other Scribed for Dr. Seth Vance by Kenny Sy, Easy [employer] Online scribe, on 11/16/2023. I, Dr. Jez Vance, have personally reviewed and agreed with the information entered by the scribe. Pending Test Test Name Order Date Echocardiogram 11/16/2023 ZIO PATCH 11/16/2023 Next Appt Details Follow Up: prn, Reason: Progress Notes * [place] SHAWOB:1940 (83 yo M)Acc No.[id number]:11/16/2023 Progress Note Patient:?Benny SHAW Provider:?Jez Vance M.D. :1940???Age:83 Y???Sex:Male Omari e:11/16/2023 Address:[address] [place] [address] , [id number] Subjective: * Chief Complaints: * ???1. F/U appt. * HPI: ???INTERIM HISTORY::? PATIENT IS A 83-YEAR-OLD MALE PRESENTING TODAY WITH , JEFFREYFOR A FOLLOW-UP. HE IS SCHEDULED FOR A WHIPPLE SURGERY IN FOUR MONTHS. DURING RECENT PROCEDURE AT [facility] WAS NOTED TO HAVE HEART RATE IN THE 50S WITH MAYBE RIGHT BUNDLE BRANCH BLOCK AND MAYBE SOME BIGEMINY. ~HE'S FAIRLY ANXIOUS ABOUT THAT AND KNOWING HE HAS SURGERY COMING UP AND NEEDS A CARDIOLOGY CLEARANCE FORM FOR THE SCHEDULED SURGERY IN MARCH 2024. * ROS:?Pertinent positives and negatives in HPI. * Medical History:? * Medications:?Taking Senna-Do cusate Sodium 8.6-50 MG Tablet 2 tablets Orally Twice a day , Taking MiraLax(Polyethylene Glycol 3350) 17 GM Packet 1 packet mixed with 8 ounces of fluid Orally Once a day , Taking Tamsulosin HCl 0.4 MG Capsule 1 capsule Orally Once a day at bedtime , Taking Lupron Depot (6-Month)(Leuprolide Acetate (6 Month)) 45 MG Kit as directed Intramuscular every 6 months , Taking Ibuprofen 400 MG Tablet 1-2 tablets with food or milk as needed Orally Once a day at bedtime , Taking Losartan Potassium 50 MG Tablet 1 tablet Orally Twice a day , Notes to Pharmacist: If BP>140/90, Taking Singulair(Montelukast Sodium) 10 MG Tablet 1 tablet in the evening Orally Once a day , Taking Simvastatin 20 MG Tablet 1 tablet in the evening Orally Once a day Objective: * Vitals:? * Examination: ???General Examination: ?GENERAL APPEARANCE:?BRIGHT, ALERT AND COMFORTABLE.? Assessment: * Assessment: 1.?Bigeminy - I49.8 (Primary )??? GIVEN SCHEDULED WHIPPLE SURG DENNIS IN MAR 2024, HE NMAY NEED A CARDIOLOGY CONSULT. .WE WILL ORDER ZIOPATCH AND ECHO TODAY AND PENDING THOSE RESULTS WILL GET HIM IN A CARDIOLOGY TOGETHER SOMETIME THIS YEAR, PRIOR TO HIS SURGERY IN MARCH 2024. Plan: * Treatment: 2.?Others? Notes: Scribed for Dr. Jez Vance by Kenny Sy, [employer] medical interpreter, on 11/16/2023. I, Dr. Jez Vance, have personally reviewed and agreed with the information entered by the scribe.?? * Procedure Codes:?G0467 [facility] VISIT ESTABLISHED PATIENT * Follow Up:?prn * * Sign off status: Completed true * Provider:?Jez Vacne M.D. Omari e:?11/16/2023 Generated for Jovanna dejesus/Allyson/Nhung on:?11/21/2023 12:05 AM EDT History and Physical Notes * Examination Category Sub-Category Detail Notes General Examination GENERAL APPEARANCE: BRIGHT, ALERT AND COMFORTABLE
--- OUTSIDE RECORDS SUMMARY | 2023-11-21 00:06 | XMS_ITS | Referral Summary ---
Author Organization [facility] Address [address] [place] [address] Care Team Providers Care Potato Chip Fryer Name Role Phone Jez Vance MD Primary Care Provider [phone] Social History Tobacco Use Types Packs/Day Years Used Date Smoking Tobacco: Never Assessed Sex and Gender Information Value Date Recorded Sex Assigned at Not on file Gender Identity Not on file Sexual Orientation Not on file Plan of Treatment Not on file Care Teams Potato Chip Fryer Relationship Specialty Start Date End Date Jez Vance MD [address] [place] [address] PCP - General 08/20/14
--- OUTSIDE RECORDS SUMMARY | 2023-11-21 00:06 | XMS_ITS | Encounter Summary ---
Author Organization [facility] Address [address] [place] [address] Care Team Providers Care Data Power Consultant Name Role Phone Devorah Flowers MD Primary Care Provider [phone] Encounter Details Date Type Department Care Team (Latest Contact Info) Description 08/15/2014 15:18 EDT - 08/15/2014 23:59 EDT Hospital Encounter [address] [address] Unknown, Provider, Discharge Disposition: Home or Self Care Social History Tobacco Use Types Packs/Day Years Used Date Smoking Tobacco: Never Assessed Sex and Gender Information Value Date Recorded Sex Assigned at Not on file Gender Identity Not on file Sexual Orientation Not on file documented as of this encounter Discharge Disposition Disposition Code Departure Means Destination Home or Self Skilled Nursing documented in this encounter Plan of Treatment Not on file documented as of this encounter Visit Diagnoses Not on filedocumented in this encounter Care Teams Data Power Consultant Relationship Specialty Start Date End Date Devorah Flowers MD [address] [place] [phone] PCP - General 08/15/09 08/19/14 documented as of this encounter
--- OUTSIDE RECORDS SUMMARY | 2023-11-21 00:06 | XMS_ITS | Encounter Summary ---
Author Organization [facility] Address [address] [place] [address] Care Team Providers Care Armed Security Guard Name Role Phone Devorah Flowers MD Primary Care Provider [phone] Encounter Details Date Type Department Care Team (Late st Contact Info) Description 08/15/2014 Results Only [facility] [phone] Jair Thomas MD [address] [place] [address] Social History Tobacco Use Types Packs/Day [...] Date/Time Associated Diagnosis Comments SURGICAL PATHOLOGY Routine 08/15/2014 9:09 EDT documented in this encounter Results * SURGICAL PATHOLOGY (08/15/2014 9:09 EDT) Pathology Report: SURGICAL PATHOLOGY REPORT Reports generated via electronic interface contain original data; however they are lacking the format of the original report. Caution should be taken when reading/interpret ing unformatted reports. Name: ? KIA SHAW ? Accession #: ? [id number] ? : ? 1940 (Age: 74) ??M ? Collect Date: ? 08/15/2014 ? Location: ? [facility] ? Receive Date: ? 08/16/2014 ? Provider: JAIR THOMAS MD Copy to: BRII GURROLA MD ? Final Pathologic Diagnosis: A. ??COLON, SIGMOID, BIOPSY: - Colonic mucosa with no specific pathologic features. B. ??COLON, SIGMOID, POLYP, BIOPSY: - Hyperplastic polyp. ?? Document reviewed and electronically signed by: BRENDA GONZALEZ MD Report ??Date: 08/21/2014 16:34 By the signature above, the attending physician certifies that he/she has personally conducted a gross and/or microscopic examination of the described specimens and rendered or confirmed the above diagnosis. Specimen(s) Received: A. ??Bx sigmoid colon, random B. ??Polyp sigmoid colon Clinical History: Colonoscopy; screening and change in BH Gross Description: A. ?Received in formalin labelled with proper patient identification (initials H, T) and biopsy sigmoid colon is a single pink-de la garza tissue fragment (0.2 x 0.2 x 0.2 cm). Submitted intact in block A1. B. ?Received in formalin labelled with proper patient identification (initials H, T) and polyp sig colon is a single pink-de la garza tissue fragment (0.5 x 0.2 x 0.1 cm). Submitted intact in block B1. Soraya Guillen 08/16/2014 10:38 AM End of Report [facility] 08/15/2014 9:09 EDT 08/16/2014 9:09 EDT Jair Thomas MD PATHOLOGY ORDERABLES [facility] [address] [place] [address] documented in this encounter Visit Diagnoses Not on filedocumented in this encounter Care Teams Armed Security Guard Relationship Specialty Start Date End Date Devorah Flowers MD [address] [place] [phone] PCP - General 08/15/09 08/19/14 documented as of this encounter
--- OUTSIDE RECORDS SUMMARY | 2023-11-21 00:06 | XMS_ITS | Encounter Summary ---
Author Organization [facility] Address [address] [place] [address] Care Team Providers Care Train Inspector Name Role Phone Jez Vance MD Primary Care Provider [phone] Encounter Details Date Type Department Care Team (Late st Contact Info) Description 07/06/[address] [facility] Pathology & Laboratory Medicine - [address] [address] Jesus Cuellar MD [address] [place] [address] [place] [phone] Encounter for other general examination Social History Tobacco Use Types Packs/Day Years Used Date Smoking Tobacco: Never Assessed Sex and Gender Information Value Date Recorded Sex Assigned at Not on file Gender Identity Not on file Sexual Orientation Not on file documented as of this encounter Plan of Treatment Not on file documented as of this encounter Procedures Procedure Name Priority Date/Time Associated Diagnosis Comments SURGICAL PATHOLOGY Today 07/06/2022 14 :20 EDT Encounter for other general examination documented in this encounter Results * SURGICAL PATHOLOGY (07/06/2022 14:20 EDT) Note to Patient The following pathology results have been interpreted by your pathologist and may be available to you before your health provider has had the opportunity to review them. Please allow time for your provider to receive these results and explore management options, if applicable. 07/09/2022 13:43 EDT [facility] Final Diagnosis A. PROSTATE, RIGHT BASE LATERAL, BIOPSY (1): - Prostatic adenocarcinoma, acinar type, involving 1 of 1 core; 0.5% involvement. - Core 1 (18.4 mm): Sebewaing patterns 4 and 3, 0.1 mm B. PROSTATE, RIGHT BASE MEDIAL, BIOPSY (1): - Prostatic adenocarcinoma, acinar type, involving 1 of 1 core; 2.5% involvement. - Core 1 (15.8 mm): 3 + 3 = 6 (Grade Group 1), 0.4 mm C. PROSTATE, RIGHT MID LATERAL, BIOPSY (1): - Prostatic adenocarcinoma, acinar type, involving 1 of 1 core; 30% involvement. - Core 1 (8.9 mm): 3 + 4 = 7 (10% pattern 4) (Grade Group 2), 2.6 mm D. PROSTATE, RIGHT MID MEDIAL, BIOPSY (1): - Prostatic adenocarcinoma, acinar type, involving 1 of 1 core; 60% involvement. - Core 1 (11.2 mm): 4 + 4 = 8 (>95% pattern 4, <5% pattern 3) (Grade Group 4), 6.4 mm E. PROSTATE, RIGHT APEX LATERAL, BIOPSY (1): - Prostatic adenocarcinoma, acinar type, involving 1 of 1 core; 99% involvement. - Core 1 (10.1 mm): 4 + 3 = 7 (60% pattern 4) (Grade Group 3), 10.0 mm F. PROSTATE, RIGHT APEX MEDIAL, BIOPSY (1): - Prostatic adenocarcinoma, acinar type, involving 1 of 1 core; 80% involvement. - Core 1 (17.1 mm): 3 + 4 = 7 (20% pattern 4) (Grade Group 2), 13.8 mm G. PROSTATE, LEFT BASE LATERAL, BIOPSY (1): - Prostatic adenocarcinoma, acinar type, involving 1 of 1 core; 7.5% involvement. - Core 1 (14.5 mm): 3 + 3 = 6 (Grade Group 1), 1.1 mm H. PROSTATE, LEFT BASE MEDIAL, BIOPSY (1): - Atrophy. I. PROSTATE, LEFT MID LATERAL, BIOPSY (1): - Atrophy. J. PROSTATE, LEFT MID MEDIAL, BIOPSY (1): - Focal atrophy. - Squamous mucosa, consistent with anal mucosa. K. PROSTATE, LEFT APEX LATERAL, BIOPSY (1): - Atrophy. L. PROSTATE, LEFT APEX MEDIAL, BIOPSY (1): - Focal atrophy. Overall Grade Group: Group 4 New Prostate Cancer Grading System*: This system was developed based on a study of greater than 20,000 prostate cancer cases treated with radical prostatectomy and greater than 5000 cases treated by radiation therapy. The system was developed to provide a smaller number of grades with the most significant prognostic differences, with Group 1 having the best prognosis and Group 5 the worst prognosis. The highest grade group is reported for each biopsy series on a patient. Grade Group 1 (Leslie score <=6) Grade Group 2 (Sebewaing score 3+4=7) Grade Group 3 (Leslie score 4+3=7) Grade Group 4 (Leslie score 8) Grade Group 5 (Leslie scores 9-10) * Taya SARABIA et al: A Contemporary Prostate Cancer Grading System: A Validated Alternative to the Leslie Score. Eur Uro 2015 69(3):428-435 07/09/2022 13:43 [facility] Attestation By the signature below, the attending physician certifies that they have 1) personally conducted a gross and/or microscopic examination of the described specimen(s), and/or personally interpreted the results of laboratory testing of the described specimen(s), and 2) personally rendered or confirmed the above diagnosis. 07/09/2022 13:43 [facility] at 1343 Clinical History Abnormal prostate MRI, elevated PSA 07/09/2022 13:43 [facility] Gross Description A. Received in formalin labelled with proper patient identification (initials H, T) and RT base Lat is a single de la garza-white tissue core (2.0 cm in length x 0.1 cm in diameter). Submitted intact in A1. B. Received in formalin labelled with proper patient identification (initials H, T) and RT base med is a single de la garza-white tissue core (1.7 cm in length x 0.1 cm in diameter). Submitted intact in B1. C. Received in formalin labelled with proper patient identification (initials H, T) and RT mid Lat is a single de la garza-white tissue core (1.3 cm in length x 0.1 cm in diameter). Submitted intact in C1. D. Received in formalin labelled with proper patient identification (initials H, T) and RT mid med is a single de la garza-white tissue core (0.8 cm in length x 0.1 cm in diameter). Submitted intact in D1. E. Received in formalin labelled with proper patient identification (initials H, T) and RT apex Lat is a single de la garza-white tissue core (1.0 cm in length x 0.1 cm in diameter). Submitted intact in E1. F. Received in formalin labelled with proper patient identification (initials H, T) and RT apex med is a single de la garza-white tissue core (1.8 cm in length x 0.1 cm in diameter). Submitted intact in F1. G. Received in formalin labelled with proper patient identification (initials H, T) and LT base Lat is a single de la garza-white tissue core (1.6 cm in length x 0.1 cm in diameter). Submitted intact in G1. H. Received in formalin labelled with proper patient identification (initials H, T) and LT base med is a single de la garza-white tissue core (1.6 cm in length x 0.1 cm in diameter). Submitted intact in H1. I. Received in formalin labelled with proper patient identification (initials H, T) and LT mid lat is a single de la garza-white tissue core (1.0 cm in length x 0.1 cm in diameter). Submitted intact in I1. J. Received in formalin labelled with proper patient identification (initials H, T) and LT mid med is a single de la garza-white tissue core (1.9 cm in length x 0.1 cm in diameter). Submitted intact in J1. K. Received in formalin labelled with proper patient identification (initials H, T) and LT apex Lat is a single de la garza-white tissue core (1.0 cm in length x 0.1 cm in diameter). Submitted intact in K1. L. Received in formalin labelled with proper patient identification (initials H, T) and LT apex med is a single de la garza-white tissue core (1.5 cm in length x 0.1 cm in diameter). Submitted intact in L1. ISMAEL SERRATO(ASCP) 07/07/2022 9:01 07/09/2022 13:43 [facility] Performing Lab [facility] 07/09/2022 13:43 [facility] Scanned Images 07/09/2022 13:43 [facility] Tissue ENTIRE APEX OF PROSTATE / Unknown 07/06/2022 14:20 EDT 07/06/2022 23:46 EDT Tissue specimen (specimen) BASE OF PROSTATE / Unknown 07/06/2022 14:20 EDT 07/06/2022 23:46 EDT Tissue specimen (specimen) LEFT LATERAL MIDDLE PERIPHERAL ZONE OF PROSTATE / Unknown 07/06/2022 14:20 EDT 07/06/2022 23:46 EDT Tissue specimen (specimen) MIDDLE REGION OF PROSTATE / Unknown 07/06/2022 14:20 EDT 07/06/2022 23:46 EDT Tissue specimen (specimen) STRUCTURE OF APEX OF PROSTATE / Unknown 07/06/2022 14:20 EDT 07/06/2022 23:46 EDT Tissue specimen (specimen) STRUCTURE OF APEX OF PROSTATE / Unknown 07/06/2022 14:20 EDT 07/06/2022 23:46 EDT Tissue specimen (specimen) BASE OF PROSTATE / Unknown 07/06/2022 14:20 EDT 07/06/2022 23:46 EDT Tissue specimen (specimen) BASE OF PROSTATE / Unknown 07/06/2022 14:20 EDT 07/06/2022 23:46 EDT Tissue specimen (specimen) LEFT LATERAL MIDDLE PERIPHERAL ZONE OF PROSTATE / Unknown 07/06/2022 14:20 EDT 07/06/2022 23:46 EDT Tissue specimen (specimen) MIDDLE REGION OF PROSTATE / Unknown 07/06/2022 14:20 EDT 07/06/2022 23:46 EDT Tissue specimen (specimen) ENTIRE LEFT LATERAL LOBE OF PROSTATE / Unknown 07/06/2022 14:20 EDT 07/06/2022 23:46 EDT Tissue specimen (specimen) STRUCTURE OF APEX OF PROSTATE / Unknown 07/06/2022 14:20 EDT 07/06/2022 23:46 EDT Jesus Cuellar MD PATHOLOGY ORDERAB LES [facility] [address] [place] [address] documented in this encounter Visit Diagnoses Diagnosis Encounter for other general examination documented in this encounter Care Teams Train Inspector Relationship Specialty Start Date End Date Jez Vance MD NPI: [id number] [place] [id number] PCP - General 08/20/14 documented as of this encounter
--- OUTSIDE RECORDS SUMMARY | 2023-11-21 00:06 | XMS_ITS ---
Author Organization [facility] Address [address], [place] [id number] Care Team Providers Care Drill Hand Name Role Phone Rajiv MERCEDES, Jez Primary Care Provider [phone] REASON FOR VISIT FYI Only Social History Sex Assigned At : Social History Observation Description Sex Assigned At Male Encounters Encounter Location Date Provider Diagnosis [address] [phone] 11/12/2023 Jez Vance MD Plan Of Treatment No Information Progress Notes * [place] SHAWOB:1940 (83 yo M)Acc No.[id number]:11/12/2023 Patient:?Benny SHAW :1940???Age:83 Y???Sex:Male Address:[address] [place] [address] * true * Date:? Generated for Printi anjelica/Allyson/eTransmitting on:?11/21/2023 12:05 AM EDT
--- OUTSIDE RECORDS SUMMARY | 2023-11-21 00:07 | XMS_ITS | Encounter Summary ---
Author Organization [facility] Address [facility] [place] [address] Care Team Providers Care Wire Straightening Machine Operator Name Role Phone Jez Vance MD Primary Care Provider [phone] [phone] Encounter Details Date Type Department Care Team (Late st Contact Info) Description 11/09/2023 1:30 PM EDT Clinical Support Hematology [place] [address] Davey Reed, PALLAVI [facility] [place] [address] Malignant neoplasm of prostate Social History Tobacco Use Types Packs/Day Years Used Date Smoking Tobacco: Never Smokeless Tobacco: Never Alcohol Use Standard Drinks/Week Comments Yes 1 (1 standard drink = 0.6 oz pur e alcohol) social drinker once a month B1300 Health Literacy Answer Date Recor ded How often do you need to hav e someone help you when you read instructions, pamphlets, or other written material from your doctor or pharmacy? Never 11/04/2023 [facility] Utilities Answer Date Recorded In the past 12 months has [employer], gas, oil, or water [employer] threatened to shut off services in your home? No 11/04/2023 Overall Financial Resource Strain (CARDIA) Answe r Date Recorded How hard is it for you to pa y for the very basics like food, housing, medical care, and heating? Not hard at all 11/04/2023 Hunger Vital Sign Answer Date Recorded Within the past 12 months, y ou worried that your food would run out before you got the money to buy more. Never true 11/04/19 24 Within the past 12 months, t he food you bought just didn't last and you didn't have money to get more. Never true 11/04/2023 PRAPARE - Transportation Answer Date Re corded In the past 12 months, has l ack of transportation kept you from medical appointments or from getting medications? No 10/16 In the past 12 months, has l ack of transportation kept you from meetings, work, or from getting things needed for daily living? No 11/04/2023 Housing Stability Vital Sign Answer Omari e Recorded In the last 12 months, was t here a time when you were not able to pay the mortgage or rent on time? No 08/06/2022 In the last 12 months, how many places have you lived? 2 08/06/2022 In the last 12 months, was t here a time when you did not have a steady place to sleep or slept in a fci (including now)? No 08/06/2022 Housing Stability Vital Sign Answer Omari e Recorded In the last 12 months, was t here a time when you were not able to pay the mortgage or rent on time? No 11/04/2023 In the past 12 months, how m any times have you moved where you were living? 1 11/04/2023 At any time in the past 12 m onths, were you homeless or living in a fci (including now)? No 11/04/2023 IPV Inpatient Questions Answer Date Recorded Does Anyone Try to Keep You From Having Contact with Others or Doing Things Outside Your Home? 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 Assessment: HPI Patient Active Problem List Diagnosis Code Malignant neoplasm of prostate C61 Painless jaundice R17 Hypokalemia E87.6 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 Medications: reviewed Labs: reviewed 10/23/2023 11/10/2023 Nutrition Screen Reason for assessment High risk diagnosis;New consult Total MST Score 3 11/10/2023 Functional Status Appetite Similar compared to usual intake Early satiety Absent Nausea Grades None Diarrhea Grades None Chewing Difficulties Absent Dysgeusia Absent Abdominal pain Absent Epigastric pain Absent Following stent/ feeling much better Prostate CA/ on Lupron Feels that Lupron lowered his energy level and may have contributed to the 15 pounds weight loss/ over the past four mos (has one more shot to go) Typically lives in [place] November to June but will be here for winter, Dr Brownlee is currently treating his son in law. Appetite: has been good, eating like a pig but not gaining weight(appetite picked up 4-5 days after stent went in) When eats, denies post prandial discomfort but may have a little more gas, more gas with moving hisbowels now. Bowels: finally getting back to once a day/ was 3 times a day, not as dark as I want them to be Norm is once a day No bowel medications / takes coffee for regularity Fiber supplements: none Denies early satiety over past week--has improved / back to normal No food avoidances and no food allergies but has been avoiding fat (had thought he was symptomatic from gall bladder) Bfast : big bowl of cereal and sometimes second bfast is toast (gets up at 5am) Coffee in between Lunch: cutting back on processed meats - could be a sandwich or egg sandwich Evening: piece of pastry--always hungry Chicken, beets and rice Has to rest more. Still cuts wood, mows lawn, rests every 15 minutes if active No pain/ but out of breath at times Weight at 185 pounds for past few days, but losing 1/3 pound of weight every day 10/25/2023 11/04/2023 Food Insecurity Screening Within the past 12 months, you worried that your food would run out before you got the money to buymore. Never true Never true Within the past 12 months, the food you bought just didn't last and you didn't have money to get more. Never true Never true 11/10/2023 Pancreatic Enzymes Are you taking pancreatic enzymes? No 11/09/2023 11/10/2023 Anthropometric Assessment Information Height 175.3 cm Weight 83.915 kg Alexander Body Weight (IBW) (kg) 73.73 BMI (Calculated) 27.3 Estimated calorie needs 1850 at 25 kcals/Kg Estimated protein needs 96 grams/D Usual weight : 198 pounds to 200 pounds (Gains weight when down in [place]) 11/10/2023 Nutrition Diagnosis Problems Altered GI function;Involuntary weight loss Signs and Symptoms Weight loss;>7.5% unintentional weight loss in 3 months (Severe) Nutrition Intervention: Suspect LINDSAY/ Recommend start Creon 24: 2 with meals and 1 with snacks. Provided my card should these be cost prohibitive. Complaints of persistent weight loss despite increased kcal intake, +gas, frequent stools Discussed MNT goals for patient with pancreatic CA / emphasis on weight maintenance Focus on calorie dense frequent meals throughout the day. Nutrition Goals: Educational Handouts provided: [employer] booklet Other Recommendations: [email or web address] Monitoring and Evaluation: Will refer Benny to Nadege Howell RD at [facility] to re-evaluate. I have provided him with my card and contact information should he have any questions in the meantime. Thank you for this consult. DAVEY REED RD documented in this encounter Plan of Treatment Upcoming Encounters Date Type Department Care Team ([facility] Contact Info) Description 11/30/2023 9:45 AM EDT TH Visit (TeleHealth) Radiation Oncology at [address] [phone] Adrienne Singh PA [facility] HEMATOLOGY [place] [address] 11/30/2023 10:30 AM EDT Infusion Hematology Oncology at [address] [phone] documented as of this encounter Visit Diagnoses Diagnosis Malignant neoplasm of prostate Malignant neoplasm of prostate- Primary Androgen deprivation therapy Encounter for therapeutic drug monitoring S/P radiotherapy Convalescence following radiotherapy documented in this encounter Care Teams Wire Straightening Machine Operator Relationship Specialty Start Date End Date Jez Vance MD [address] [place] [address] PCP - General 01/07/10 documented as of this encounter
--- OUTSIDE RECORDS SUMMARY | 2023-11-21 00:07 | XMS_ITS | Encounter Summary ---
Author Organization [facility] Address [facility] [place] [address] Care Team Providers Care Bean Snapper Name Role Phone Jez Vance MD Primary Care Provider [phone] Encounter Details Date Type Department Care Team (Latest Contact Info) Description 11/04/2023 Travel Social History Tobacco Use Types Packs/Day Years [...] from your doctor or pharmacy? Never 11/04/2023 [facility] Utilities Answer Date Recorded In the past 12 months has e electric, gas, oil, or water company threatened to shut off services in your [...] place to sleep or slept in a correction (including now)? No 08/06/2022 Housing Stability Vital Sign Answer Omari e Recorded In the last 12 months, was t here a time when you were not able to pay the mortgage or rent on time? No 11/04/2023 In the past 12 months, how m any times have you moved where you were living? 1 11/04/2023 At any time in the past 12 m [facility], were you homeless or living in a correction (including now)? No 11/04/2023 [facility] IPV Inpatient Questions Answer Date Recorded Does [...] as of this encounter Plan of Treatment Upcoming Encounters Date Type Department Care Team (Late st Contact Info) Description 11/30/2023 9:45 AM EDT TH Visit (TeleHealth) Radiation Oncology at [address] [phone] Adrienne Singh PA [facility] HEMATOLOGY [place] [address] 11/30/2023 10:30 AM EDT Infusion Hematology Oncology at [address] [phone] documented as of this encounter Visit Diagnoses Not on filedocumented in this encounter Care Teams Bean Snapper Relationship Specialty Start Date End Date Jez Vance MD [address] [place] [address] PCP - General 01/07/10 documented as of this encounter
--- OUTSIDE RECORDS SUMMARY | 2023-11-21 00:07 | XMS_ITS | Encounter Summary ---
Author Organization [facility] Address One [facility] [place] [address] Care Team Providers Care Vine Fruit Farming Supervisor Name Role Phone Jez Vance MD Primary Care Provider [phone] [phone] Encounter Details Date Type Department Care Team (Latest Contact Info) Description 11/12/2023 Travel Social History Tobacco Use Types Packs/Day [...] from your doctor or pharmacy? Never 11/04/2023 [facility] Utilities Answer Date Recorded In the [...] place to sleep or slept in a longterm (including now)? No 08/06/2022 Housing Stability Vital Sign Answer Omari e Recorded In the last 12 months, was t here a time when you were not able to pay the mortgage or rent on time? No 11/04/2023 In the past 12 months, how m any times have you moved where you were living? 1 11/04/2023 At any time in the past [address] [facility], were you homeless or living in a longterm (including now)? No 11/04/2023 [facility] IPV Inpatient Questions Answer Date Recorded Does Anyone Try to Keep You From Having Contact with Others or Doing Things Outside Your Home? no 11/12/2023 Feels Threatened by Someone no 10/17 Feels Unsafe at Home or Work/School no 11/12/2023 Physical Signs of Abuse Present no 11/12/2023 Sex and Gender Information Value Date Recorded Sex Assigned at Not on file Gender Identity Not on file Sexual Orientation Not on file documented as of this encounter Plan of Treatment Upcoming Encounters Date Type Department Care Team (Late st Contact Info) Description 11/30/2023 9:45 AM EDT TH Visit (TeleHealth) Radiation Oncology at [address] [phone] Adrienne Singh PA [facility] HEMATOLOGY [place] [address] 11/30/2023 10:30 AM EDT Infusion Hematology Oncology at [address] [phone] documented as of this encounter Visit Diagnoses Not on filedocumented in this encounter Care Teams Vine Fruit Farming Supervisor Relationship Specialty Start Date End Date Jez Vance MD [address] [place] [address] PCP - General 01/07/10 documented as of this encounter
--- OUTSIDE RECORDS SUMMARY | 2023-11-21 00:07 | XMS_ITS | Encounter Summary ---
Author Organization [facility] Address [facility] [place] [address] Care Team Providers Care Quality Control Representative Name Role Phone Jez Vance MD Primary Care Provider [phone] [phone] Encounter Details Date Type Department Care Team (Latest Contact Info) Description 11/08/2023 Travel Social History Tobacco Use Types Packs/Day [...] from your doctor or pharmacy? Never 11/04/2023 [facility] Utilities Answer Date Recorded In [...] place to sleep or slept in a alf (including now)? No 08/06/2022 Housing Stability Vital Sign Answer Omari e Recorded In the last 12 months, was t here a time when you were not able to pay the mortgage or rent on time? No 11/04/2023 In the past 12 months, how m any times have you moved where you were living? 1 11/04/2023 At any time in the past 12 m [facility], were you homeless or living in a alf (including now)? No 11/04/2023 [facility] IPV Inpatient [...] EDT TH Visit (TeleHealth) Radiation Oncology at [address] [phone] Adrienne Singh PA [facility] HEMATOLOGY [place] [address] 11/30/2023 10:30 AM EDT Infusion Hematology Oncology at [address] [phone] documented as of this encounter Visit Diagnoses Not on filedocumented in this encounter Care Teams Quality Control Representative Relationship Specialty Start Date End Date Jez Vance MD [address] [place] [address] PCP - General 01/07/10 documented as of this encounter
--- OUTSIDE RECORDS SUMMARY | 2023-11-21 00:07 | XMS_ITS | Encounter Summary ---
Author Organization [facility] Address [facility] [place] [address] Care Team Providers Care Specialties Operator Name Role Phone Jez Vance MD Primary Care Provider [phone] Encounter Details Date Type Department Care Team (Latest Contact Info) Description 11/09/2023 12:28 PM EDT - 11/09/2023 11:59 PM EDT Hospital Encounter [place] [phone] Malignant neoplasm of head of pancreas; Malignant neoplasm of prostate Discharge Disposition: Home Social History Tobacco Use Types Packs/Day Years [...] from your doctor or pharmacy? Never 11/04/2023 [facility] Utilities Answer Date Recorded In the past 12 months has [employer], gas, oil, or water company threatened [...] any time in the past 12 m [facility], were you homeless or living in a alf (including now)? No 11/04/2023 IPV Inpatient Questions [...] on file documented as of this encounter Medications at Time of Discharge Medication Sig Dispensed Refills Start Date End Date fzyqjt-[id number] (Creon 24) 24,000-76,000 -120,000 unit capsuleIndications:Malign ant neoplasm of head of pancreas,Exocrine pancreatic insufficiency Take 2 po with meals and 1 po with snacks (3 snacks), 9 per day 270 capsule 11 11/09/2023 tamsulosin (Flomax) 0.4 mg capsule Take 1 capsule by mouth daily. 90 tablet 3 10/30/2022 simvastatin (Zocor) 10 mg tablet Take 20 mg by mouth daily. losartan potassium (COZAAR ORAL) Take 50 mg by mouth nightly. montelukast (SINGULAIR) 10 mg tablet Take 5 mg by mouth nightly. 09/02/2005 ibuprofen (ADVIL;MOTRIN) 600 mg tablet Take 600 mg by mouth every 8 hours as needed for Pain. 09/02/2005 documented as of this encounter Plan of Treatment Upcoming Encounters Date Type Department Care Team (Late st Contact Info) Description 11/30/2023 9:45 AM EDT TH Visit (TeleHealth) Radiation Oncology at [address] [phone] Adrienne Singh PA [facility] DR HEMATOLOGY [place] [address] 11/30/2023 10:30 AM EDT Infusion Hematology Oncology at [address] [phone] Pending Results Name Type Priority Associated Diagnoses Date /Time Miscellaneous Lab request Lab Routine Malignant neoplasm of head of pancreas Malignant neoplasm of prostate 11/09/2023 12:35 PM EDT Scheduled Orders Name Type Priority Associated Diagnoses Orde r Schedule Miscellaneous Lab request Lab Routine Malignant neoplasm of head of pancreas Malignant neoplasm of prostate 1 Occurrences starting 11/09/2023 until 11/09/2023 documented as of this encounter Procedures Procedure Name Priority Date/Time Associated Diagnosis Comments PGX ONCOLOGY Routine 11/09/2023 12:35 PM EDT Malignant neoplasm of head of pancreas CARBOHYDRATE ANTIGEN 19-9 Routine 11/09/2023 12:35 PM EDT Malignant neoplasm of head of pancreas CBC (WITH DIFF) Routine 11/09/2023 12:35 PM EDT Malignant neoplasm of head of pancreas COMPREHENSIVE METABOLIC PANEL Routine 11/09/2023 12:35 PM EDT Malignant neoplasm of head of pancreas documented in this encounter Results * (ABNORMAL) PGx Oncology (11/09/2023 12:35 PM EDT) Pathologist [facility] [place] NGS Report Status Abnormal(A ) 11/17/2023 9:14 AM EDT [facility] Blood VENOUS BLOOD SPECIMEN / Unknown Venipuncture / Unknown 11/09/2023 12:35 PM EDT 11/09/2023 12:36 PM EDT Antonio Brownlee MD MOLECULAR ORDERABLES Performing Organization Address City/[facility]/ZIP Co de Phone Number [facility] [place] [address] * (ABNORMAL) Carbohydrate Antigen 19-9 (11/09/2023 12:35 PM EDT) Pathologist [facility] [place] CA 19-9 110.0(H) <=35.0 units/mL 11/09/2023 1:35 PM EDT [facility] Comment:This result was gene rated using a Doreen Danis immunoassay. Results obtained from other methods or manufacturers cannot be used interchangeably with this method. Blood VENOUS BLOOD SPECIMEN / Unknown Venipuncture / Unknown 11/09/2023 12:35 PM EDT 11/09/2023 12:36 PM EDT Antonio Brownlee MD CHEMISTRY ORDERABLES Performing Organization Address City/[facility]/ZIP Co de Phone Number [facility] [place] [address] * (ABNORMAL) Comprehensive metabolic panel Non-fasting (11/09/2023 12:35 PM EDT) [facility] Glucose 115 65 - 199 mg/dL 11/09/2023 1:29 PM EDT [facility] Comment:Glucose Concentratio n >=200 mg/dL plus symptoms is consistent with Diabetes Mellitus. Blood Urea Nitrogen 15 10 - 20 mg/dL 11/09/2023 1:29 PM EDT [facility] Creatinine 0.68(L) 0.80 - 1.50 mg/dL 11/09/2023 1:29 PM [facility] Sodium 138 135 - 145 mMol/L 11/09/2023 1:29 PM [facility] Potassium 4.0 3.5 - 5.0 mMol/L 11/09/2023 1:29 PM [facility] Chloride 102 98 - 107 mMol/L 11/09/2023 1:29 PM [facility] Carbon Dioxide 24 22 - 31 mMol/L 11/09/2023 1:29 PM [facility] Anion Gap 12 5 - 15 mMol/L 11/09/2023 1:29 PM [facility] Calcium 8.9 8.5 - 10.5 mg/dL 11/09/2023 1:29 PM [facility] Protein, Total 6.6 6.1 - 8.0 g/dL 11/09/2023 1:29 PM [facility] Albumin 4.2 3.2 - 5.2 g/dL 11/09/2023 1:29 PM [facility] Aspartate Aminotransferase 21 <=39 unit/L 11/09/2023 1:29 PM [facility] Alanine Aminotransferase 50 0 - 55 unit/L 11/09/2023 1:29 PM [facility] Alkaline Phosphatase 159(H) 40 - 130 unit/L 11/09/2023 1:29 PM [facility] Bilirubin, Total 0.9 <=1.3 mg/dL 11/09/2023 1:29 PM [facility] Est Glomerular Filtration Rate - Male 93 mL/min/1. 73 m?? 11/09/2023 1:29 PM [facility] Comment: This patient's estimated GFR was calculated using the 2020 CKD-EPI equation. The estimated GFR can vary from the measured GFR by up to 30% in the absence of rapidly changing kidney function. Assessment of the estimated GFR is not appropriate when creatinine concentrations are rapidly changing. For clinical situations in which a more precise estimate of GFR is necessary, consider alternative methods of GFR estimation such as a 24-hour urine creatinine clearance. Assignment of CKD stage 1 - 5 for patients with an eGFR near the transition point between stages may be based on clinical assessment of muscle mass and symptoms in addition to eGFR. Link: eGFR Calculator [employer] Fasting Status No 11/09/2023 1:29 PM EDT [facility] Blood VENOUS BLOOD SPECIMEN / Unknown Venipuncture / Unknown 11/09/2023 12:35 PM EDT 11/09/2023 12:36 PM EDT Antonio Brownlee MD CHEMISTRY ORDERABLES [facility] [place] [address] * (ABNORMAL) CBC (with Diff) (11/09/2023 12:35 PM EDT) White Blood Cell 7.04 4.00 - 9.50 x10(3)/mc L 11/09/2023 1:00 PM EDT [facility] Red Blood Cell 3.81(L) 4.58 - 5.54 x10(6)/mc L 11/09/2023 1:00 PM EDT [facility] Hemoglobin 12.5(L) 13.7 - 16.5 g/dL 11/09/2023 1:00 PM EDT [facility] Hematocrit 36.5(L) 40.5 - 48.5 % 11/09/2023 1:00 PM EDT [facility] Mean Cell Volume 95.8(H) 82.9 - 93.1 fL 11/09/2023 1:00 PM EDT [facility] Mean Cell Hemoglobin 32.8(H) 27.5 - 32.1 pg [facility] Mean Cell Hemoglobin Concentration 34.2 32.0 - 35.7 g/dL 11/09/2023 1:00 PM [facility] Platelet 256 145 - 357 x10(3)/mc L 11/09/2023 1:00 PM [facility] Mean Platelet Volume 10.7 7.6 - 12.9 fL 11/09/2023 1:00 PM [facility] RDW Standard Deviation 44.8 36.0 - 45.0 fL 11/09/2023 1:00 PM [facility] RDW coefficient of variation 12.8 11.4 - 13.8 % 11/09/2023 1:00 PM [facility] NRBC% auto 0.0 % 11/09/2023 1:00 PM [facility] NRBC Absolute <0.01 <0.01 x10(3)/mc L 11/09/2023 1:00 PM [facility] Neutrophil % 74.7 % 11/09/2023 1:00 PM [facility] Neutrophil Absolute (ANC) - Automated 5.26 1.70 - 6.10 x10(3)/mc L 11/09/2023 1:00 PM [facility] Lymph % 14.9 % 11/09/2023 1:00 PM [facility] Lymph Absolute 1.05 0.90 - 3.20 x10(3)/mc L 11/09/2023 1:00 PM [facility] Monocyte % 7.5 % 11/09/2023 1:00 PM [facility] Monocyte Absolute 0.53 0.30 - 0.90 x10(3)/mc L 11/09/2023 [facility] Eos % 2.0 % 11/09/2023 1:00 [facility] Eos Absolute 0.14 0.00 - 0.40 x10(3)/mc L 11/09/2023 1:00 [facility] Basophil % 0.6 % 11/09/2023 1:00 [facility] Baso Absolute 0.04 0.00 - 0.10 x10(3)/mc L 11/09/2023 1:00 PM EDT [facility] Immature Gran % 0.3 % 1:00 PM EDT [facility] Immature Gran Absolute <0.04 0.00 - 0.04 x10(3)/mc L 11/09/2023 1:00 PM EDT [facility] Blood VENOUS BLOOD SPECIMEN / Unknown Venipuncture / Unknown 11/09/2023 12:35 PM EDT 11/09/2023 12:36 PM EDT Antonio Brownlee MD HEMATOLOGY ORDERABLE S [facility] [place] [address] documented in this encounter Visit Diagnoses Diagnosis Malignant neoplasm of head of pancreas Malignant neoplasm of prostate Malignant neoplasm of prostate- Primary Androgen deprivation therapy Encounter for therapeutic drug monitoring S/P radiotherapy Convalescence following radiotherapy documented in this encounter Care Teams Specialties Operator Relationship Specialty Start Date End Date Jez Vance MD [address] [place] [address] PCP - General 01/07/10 documented as of this encounter
--- OUTSIDE RECORDS SUMMARY | 2023-11-21 00:07 | XMS_ITS | Encounter Summary ---
Author Organization [facility] Address [facility] [place] [address] Care Team Providers Care Glass Calibrator Name Role Phone Jez Vance MD Primary Care Provider [phone] Encounter Details Date Type Department Care Team (Late st Contact Info) Description 11/09/2023 Telephone Hematology/Oncology at [address] [phone] Kelly Buchanan Social History Tobacco Use Types Packs/Day Years [...] from your doctor or pharmacy? Never 11/04/2023 [facility] Utilities Answer Date Recorded In the past 12 months has [employer], gas, oil, or water [employer] threatened to shut off services in your [...] place to sleep or slept in a senior care (including now)? No 08/06/2022 Housing Stability Vital Sign Answer Omari e Recorded In the last 12 months, was t here a time when you were not able to pay the mortgage or rent on time? No 11/04/2023 In the past 12 months, how m any times have you moved where you were living? 1 11/04/2023 At any time in the past 12 m [facility], were you homeless or living in a senior care (including now)? No 11/04/2023 [facility] IPV Inpatient [...] on file documented as of this encounter Miscellaneous Notes * Telephone Encounter - Kelly Buchanan - 11/09/2023 2:22 PM EDT I spoke with Benny and confirmed his appointment for 11/19/[address] Brownlee at 10am. Benny plans to get his labs done 1-2 days prior at [facility]. Benny also confirmed that he knows the location for this appointment in [facility]. documented in this encounter Plan of Treatment Upcoming Encounters Date Type Department Care Team (Late st Contact Info) Description 11/30/2023 9:45 AM EDT TH Visit (TeleHealth) Radiation Oncology at [address] [phone] Adrienne Singh PA [facility] DR H[place]ATOLOGY [place] [address] 11/30/2023 10:30 AM EDT Infusion Hematology Oncology at [address] [phone] documented as of this encounter Visit Diagnoses Not on filedocumented in this encounter Care Teams Glass Calibrator Relationship Specialty Start Date End Date Jez Vance MD [address] [place] [address] PCP - General 01/07/10 documented as of this encounter
--- OUTSIDE RECORDS SUMMARY | 2023-11-21 00:07 | XMS_ITS | Encounter Summary ---
Author Organization [facility] Address [facility] [place] [address] Care Team Providers Care International Trade Manager Name Role Phone Jez Vance MD Primary Care Provider [phone] Encounter Details Date Type Department Care Team (Late st Contact Info) Description 11/19/2023 10:30 AM EDT Clinical Support Hematology/Oncology at [address] [phone] Nadege Howell, PALLAVI [facility] DR HEMATOLOGY [place] [address] Arrived Social History Tobacco Use Types Packs/Day Years [...] from your doctor or pharmacy? Never 11/04/2023 [facility] Utilities Answer Date Recorded In the past 12 months has [employer], gas, oil, or water [employer] threatened to shut off services in your [...] place to sleep or slept in a jail (including now)? No 08/06/2022 Housing Stability Vital Sign Answer Omari e Recorded In the last 12 months, was t here a time when you were not able to pay the mortgage or rent on time? No 11/04/2023 In the past 12 months, how m any times have you moved where you were living? 1 11/04/2023 At any time in the past 12 m [facility], were you homeless or living in a jail (including now)? No 11/04/2023 IPV Inpatient Questions [...] EDT TH Visit (TeleHealth) Radiation Oncology at [address] [phone] Adrienne Singh PA [facility] DR HEMATOLOGY [place] [address] 11/30/2023 10:30 AM EDT Infusion Hematology Oncology at [address] [phone] documented as of this encounter Visit Diagnoses Not on filedocumented in this encounter Care Teams International Trade Manager Relationship Specialty Start Date End Date Jez Vance MD [address] [place] [address] PCP - General 01/07/10 documented as of this encounter
--- OUTSIDE RECORDS SUMMARY | 2023-11-21 00:07 | XMS_ITS | Encounter Summary ---
Author Organization [facility] [place] [address] Care Team Providers Care Parole Or Probation Officer Name Role Phone Jez Vance MD Primary Care Provider [phone] Encounter Details Date Type Department Care Team (Late st Contact Info) Description 11/12/2023 9:29 AM EDT - 11/12/2023 11:14 AM EDT Surgery [place] [id number] Carmen Obrien MD [facility] [place] [address] YUNG\NGUYEN.CATHETER,TUNN ELED, WITH SQ PORT OR PUMP OVER 5YR (WRVU 5.79) Social History Tobacco Use Types Packs/Day Years [...] from your doctor or pharmacy? Never 11/04/2023 [facility] Utilities Answer Date Recorded In the past 12 months has th e electric, gas, oil, or water company [...] on file documented as of this encounter Last Filed Vital Signs Vital Sign Reading Time Taken Comments Blood Pressure 140/69 11/12/2023 11:10 AM EDT Pulse 64 11/12/2023 11:10 AM EDT Temperature 36.2 ??C (97.2 ??F) 11/12/2023 11:06 AM E DT Respiratory Rate 16 11/12/2023 11:06 AM EDT Oxygen Saturation 100% 11/12/2023 11:10 AM EDT Inhaled Oxygen Concentration - - Weight 83.5 kg (184 lb) 11/12/2023 8:24 AM EDT Height 177.8 cm (5' 10) 11/12/2023 8:24 AM EDT Body Mass Index 26.4 11/12/2023 8:24 AM EDT documented in this encounter Discharge Instructions * Discharge Instructions* Tiera Biggs, RN - 11/12/2023 8:17 AM EDT General Anesthesia Discharge Instructions Go home and rest. You may be sleepy for several hours. Take it easy as sudden position changes may cause nausea and/or dizziness. Use caution on stairs. Do not smoke if you are alone. Follow a light to regular diet as tolerated today. If nausea occurs, start with clear liquids, and progress slowly to a regular diet. Do not drive, operate machinery, drink alcoholic beverages or make any legal decisions after havinggeneral anesthesia. The medications given change your reaction time and alter your judgement. IV site -- slight redness is normal, you can use warm compresses. If tenderness and redness increases or foul drainage occurs, please contact your M.D. Patients who have had endotracheal tubes/LMA (tubes used by the anesthesia staff to ensure a safe airway during your operation) may have a sore throat. This is normal and cold liquids or soothing lozenges will help ease this discomfort. Narcotic pain medications can cause constipation, please ask the surgeons office what they recommend for prevention of this. Some non-pharmaceutical means of constipation prevention include increasing intake of fluids, eating more fruits and vegetables as well as fruit juices. If you are uncomfortable and/or unable to urinate within 8 hours of discharge and it is before 5 pm, call your physician. If it is after 5pm go to the closest emergency room or call the hospital macaroni press operator at [phone] and ask for physician labor conciliator covering for your physician. Questions or problems after 5pm or on a weekend: Call the [facility] macaroni press operator at and ask for the physician labor conciliator covering for your doctor. * Patient Instructions* Carmen Obrien MD - 11/12/2023 9:52 AM EDT OK to shower. You have dermabond - 'superglue' covering the incisions which will start to peel off in 1-2 weeks. Ok to peel it off once it starts to peel away. Take Extra strength Tylenol 1-2 tablets everty 6 hours on a scheduled basis for the next three daysto help with pain. You can also take, while taking the Tylenol, Ibuprofen as needed for postop pain. Please follow up with Dr. Brownlee as planned to get started on chemotherapy If you have any questions about the incisions, any pain or nausea or other concerns related to the surgery please call the surgery clinic nurses at [phone]. If you have any concerns at night or when the clinic is closed then please call the main [facility] number and ask to speak with the general surgery resident labor conciliator. That number is [phone]. Dr. Obrien will see you back after you finish the neoadjuvant therapy. documented in this encounter Medications at Time of Discharge Medication Sig Dispensed Refills Start Date End Date [id number] ( 24) 24,000-76,000 -120,000 unit capsuleIndications:Malign ant neoplasm [...] Pain. 09/02/2005 documented as of this encounter Progress Notes * Sandrine Win RN - 11/12/2023 12:01 PM EDT Discharge instructions and medications reviewed with patient and Angela. All questions answered andwritten copy sent home with patient. Patient ambulated to car for discharge accompanied by [facility] staff member. documented in this encounter H&P Notes * Carmen Obrien MD - 11/12/2023 9:50 AM EDT Patient Name: Benny Zurita Patient Age: 83 y.o. Birthdate: 1940 Admit date: 11/12/2023 Attending Physician: Carmen Obrien MD I saw Benny in the preoperative holding area at [place] [facility] He is here today with his -Scar. We discussed a plan to proceed with a laparoscopy to complete the staging workup and the Mediport placement to facilitate systemic chemotherapy with Dr. Brownlee. Informed consent was obtained. Shorty Obrien MD 11/12/2023 9:51 AM documented in this encounter Miscellaneous Notes * Op Note - Carmen Obrien MD - 11/12/2023 10:13 AM EDT [facility] Operative Note Patient Name: Benny Zurita : [id number] MR#: [id number] Case Date: 11/12/2023 Surgeon: Surgeons and Role: * Carmen Obrien MD - Primary Preoperative diagnosis: PANCREAS CANCER Postoperative diagnosis: PANCREAS CANCER Procedure(s) (LRB): LAPAROSCOPY, DIAGNOSTIC, ABDOMEN (WRVU 5.14) (N/A) YUNG\NGUYEN.CATHETER,TUNNELED, WITH SQ PORT OR PUMP OVER 5YR (WRVU 5.79) (N/A) FLUOROSCOPY (WRVU 0.3) (N/A) Findings: No metastatic disease. Small umbilical hernia with omentum. Anesthesia: General Estimated Blood Loss: 5 mL Specimens removed during surgery: None Drains: * No LDAs found * Surgical Closure: Primary Closure - skin incision is completely closed without any wires, ted, drains or other devices Disposition: awakened from anesthesia, extubated and taken to the recovery room in a stable condition, having suffered no apparent untoward event. Condition: doing well without problems (Please see the Surgical Encounter Summary for any Implant and Specimen details pertinent to this patient.) HPI/Surgical Indications: Pancreas cancer Procedure Description: Mr. Zurita was identified in the preop holding area and taken to the operating room and placed supine on the operating table. Monitoring lines and Venodyne boots were placed. General anesthesia was induced and he was intubated without complication. An oralgastric tube was placed. IV antibiotics was given (ancef) prior to initiating the procedure. The right neck and upper chest was prepped with ChloraPrep as well as the abdomen in the usual sterile fashion. We proceeded to drape the neck. Ioban strips were used to secure the drapes to the skin. We first placed the sterile drapes for the abdomen, diagnostic laparoscopy part of the procedure. We then placed the sterile drapes for the Mediport portion of the procedure. The towel were secured to the skin with Ioban strips. A second sterile drape was then placed over the initial abdomen part of the sterile drape that it could be sequentially removed after completion of the Mediport part of the procedure maintaining sterile field in both the neck/chest as well as the abdomen. The mediport portion of the procedure was started. We selected an 8 Fr POWERPORT mediport. Quarter percent Marcaine was used to create a local block just beneath the band in the right clavicle and the anterior chest wall. The local was injected in the subcutaneous space as well as along the periosteum of the right clavicle. We then created an obliquely oriented 3-4 cm incision beneath the clavicle in the anterior chest. Dissection was carried down with cautery to expose the chest wall fascia. He was then positioned into the trendelenberg position and using Seldinger technique the right subclavian vein was cannulated (1st attempt). There was nonpulsatile dark blood return consistent with venous cannulation. We connected the needle to IV tubing to confirm venous placement without pulsation.A wire was then introduced and the needle was removed. With the wire in place we then brought in the C-arm to perform fluoroscopy and confirm that the wire was in the left subclavian vein and then passed down through the SVC into the left atrium. When successful cannulation and wire placement was confirmed with fluoroscopy the introducer was inserted over the wire and then the introducer with thepeel-away sheath was inserted into the subclavian vein over the wire. The introducer and wire were removed to allow the catheter to be placed down the peel-away sheath and into the subclavian vein. Th e peel-away sheath was removed and the mediport was placed within the small subcutaneous pocket. Lucie connected the catheter to the Mediport securing it with the small plastic hub. Before placing the Mediport within the pocket we flushed it with the Estrada needle and it flushed easily as well as blood return was easy to aspirate. The C-arm was then brought back into the field and fluoroscopy confirmed the catheter tip just outside the right atrium in the superior vena cava. The port was stiched to the chest wall fascia using an 0- Vicryl stich. Using the Estrada needle the port was accessed and there was good aspiration of blood and it flushed nicely with heparinized saline (1000 units in 100 cc of saline- 10 u/ml). We then proceeded to close the incision. Several interrupted deep dermal 3-0 Vicryl stitches were placed to reapproximate the skin and then finally the skin was closed with arunning 4-0 Monocryl subcuticular stitch. Final fluoroscopy confirmed placement with the catheter sh owing no kinks, the port flush on the abdominal wall and the tip in the SVC. The port was then flushed with a Estrada needle and heparinized saline (1000 units in 10 ml of saline -100 units per cc). Dermabond was placed over the mediport incision. Next, the abdominal portion of the operation was started after we removed and reflected the Mediport drapes cephalad to expose the underlying drapes for the abdominal portion of the operation. A 5mm Optivue port and zero degree camera were used to gain access to the abdomen under direct visualization without injury to underlying structures in the left mid/lateral abdomen. Once pneumoperitoneum was obtained. A single additional 5 mm port was placed under direct visualization after local injection into the right/lateral mid abdomen. Laparoscopic exploration showed no evidence of metastatic disease-see findings detailed above. With upward retraction on the gallbladder the undersurface of the right liver was inspected. The undersurface of the left lateral segment was inspected in a similar fashion. The lesser sac was inspected through the transparent gastrohepatic ligament with no pathology noted. The 5 mm ports were removed under direct visualization with no bleeding noted. The pneumoperitoneumwas completely evacuated prior to removing the last port. Finally the skin incisions were reapproximated with a 4-0 Monocryl subcuticular stitch. Dermabond was used to cover the port incisions. Mr. Zurita was awakened from anesthesia, extubated in the OR and taken to the recovery room in hemodynamically stable condition. I was present from start to finish. Attestation: Case Date: 11/12/2023 I performed this procedure without the involvement of a resident. CARMEN OBRIEN MD 11/12/2023 documented in this encounter Plan of Treatment Upcoming Encounters Date Type Department Care Team (Late st Contact Info) Description 11/30/2023 9:45 AM EDT TH Visit (TeleHealth) Radiation Oncology at [address] [phone] Adrienne Singh PA [facility] [address] [place] [address] 11/30/2023 10:30 AM EDT Infusion Hematology Oncology at [address] [phone] documented as of this encounter Procedures Procedure Name Priority Date/Time Associated Diagnosis Comments XR CHEST ONE VIEW Routine 11/12/2023 11: 33 AM EDT EKG 12-LEAD STAT 11/12/2023 11:23 AM EDT Cardiac arrhythmia, unspecified cardiac arrhythmia type XR FLUORO NO RAD <1HR - OR USE Routine 11/12/2023 10:35 AM EDT Fluoroscopy Exam Up To 1 Hr Phy Or Oth th Care Prov ([id number]) Yes 11/12/2023 9:38 AM EDT PANCREAS CANCER Insert Tunneled CV Cath w SubQ Port, Age 5 Yrs or Older ([id number]) Yes 11/12/2023 9:38 AM EDT PANCREAS CANCER Lap, Diagnostic Abdomen ([id number]) Yes 11/12/2023 9:38 AM EDT PANCREAS CANCER documented in this encounter Results * XR Chest One View (11/12/2023 11:33 AM EDT) WORKSTATION ID [id number] RAD Anatomical Region Laterality Modality Chest N/A Digital Radiogra phy Impressions 11/12/2023 3:22 PM EDT 1. ??Right-sided port in satisfactory position. 2. ??Small pneumoperitoneum consistent with recent abdominal surgery. I have personally reviewed the image(s) and the resident's interpretation and agree with the findings, Elton Marshall MD at 11/12/2023 3:22 PM Thank you for letting us participate in the care of this patient. ??If you are a health care provider and have any questions regarding this report, please contact the number below. ??For patients who have questions please contact the health child adolescent care that requested your imaging first. ? Electronically signed by: Elton Marshall MD, [facility] ([phone]), at 11/12/2023 3:22 PM Narrative 11/12/2023 3:22 PM EDT EXAMINATION: XR CHEST ONE VIEW CLINICAL HISTORY: Recovery room chest x-ray to check Mediport placement TECHNIQUE: AP portable chest radiograph. COMPARISON: CT chest 10/24/2023. FINDINGS: Lines and tubes: There is a right-sided port with the tip at the superior cavoatrial junction. The cardiomediastinal silhouette is within normal limits given the technique of this film. The lungs are clear. There is no pleural effusion or pneumothorax. There is a small lucency beneath the right hemidiaphragm. Procedure Note Elton Marshall MD - 11/12/2023 EXAMINATION: XR CHEST ONE VIEW CLINICAL HISTORY: Recovery room chest x-ray to check Mediport placement TECHNIQUE: AP portable chest radiograph. COMPARISON: CT chest 10/24/2023. FINDINGS: Lines and tubes: There is a right-sided port with the tip at thesuperior cavoatrial junction. The cardiomediastinal silhouette is within normal limits given thetechnique of this film. The lungs are clear. There is no pleural effusion or pneumothorax. There is a small lucency beneath the right hemidiaphragm. IMPRESSION 1. Right-sided port in satisfactory position. 2. Small pneumoperitoneum consistent with recent abdominal surgery. I have personally reviewed the image(s) and the resident's interpretationand agree with the findings, Elton Marshall MD at 11/12/2023 3:22 PM Thank you for letting us participate in the care of this patient. If youare a health care provider and have any questions regarding this report,please contact the number below. For patients who have questions please contactthe health child adolescent care that requested your imaging first. Electronically signed by: Elton Marshall MD, [facility]([phone]), at 11/12/2023 3:22 PM Carmen Obrien MD IMG DX ORDERABLES * EKG 12 Lead (11/12/2023 11:23 AM EDT) Ventricular rate 55 BPM MUSE SYSTEM Atrial Rate 55 BPM MUSE SYSTEM P-R Interval 150 ms MUSE SYSTEM QRS Duration 108 ms MUSE SYSTEM Q-T Interval 496 ms MUSE SYSTEM QTC Calculated (Bezet) 474 ms MUSE SYSTEM Calculated P [place] 49 degrees MUSE SYSTEM Calculated R [place] -55 degrees MUSE SYSTEM Calculated T [place] 8 degrees MUSE SYSTEM INTERPRETATION Sinus bradycardia with Premature atrial complexes in a pattern of bigeminy Left anterior fascicular block Abnormal ECG When compared with ECG of 23-OCT-2023 13:40, Premature atrial complexes are now Present Confirmed by MD Devin, Clyde Rasmussen ([id number]) on 11/12/2023 12:06:49 PM MUSE SYSTEM 11/12/2023 11:2 3 AM EDT 11/12/2023 12:06 PM EDT Lore Maxwell MD ECG ORDERABLES MUSE SYSTEM * XR Fluoro No Rad <1Hr - OR Use (11/12/2023 10:35 AM EDT) Narrative Dicom, Auditing User - 11/12/2023 11:04 AM EDT This exam is auto-finalizing. No interpretation was done. Carmen Obrien MD IMG FLUORO ORDERAB LES documented in this encounter Visit Diagnoses Not on filedocumented in this encounter Administered Medications Inactive Administered Medications - up to 3 most recent administrations Medication Order MAR Action Action Date Dose Rate Site BUPivacaine (pf) (Marcaine) (2.5 mg/mL) 0.25% injection PRN, Starting on Wed11/12/23 at 1056, Until Wed11/12/23 at 1403, Intra-Operative (Intra-Procedure), Routine Given 11/12/2023 10:56 AM EDT 7 mLs 19- Surgical Site heparin (porcine) (1,000 units/mL) injection PRN, Starting on Wed11/12/23 at 1029, Until Wed11/12/23 at 1403, Intra-Operative (Intra-Procedure), Routine Given 11/12/2023 10:29 AM EDT 2,000 Units documented in this encounter Active and Recently Administered Medications Times are shown in EDT. Scheduled Medication Order 11/10/2023 11/11/2023 11/12/2023 acetaminophen (Tylenol) tablet 975 mg 975 mg (rounded from 1,000 mg), Oral, ONCE, 1 dose, On Wed11/12/23 at 0930, Maximum dose of acetaminophen is 4000 mg from all sources in 24 hours. When ordered for pain, acetaminophen should be given even when other ordered pain medications are indicated. , Routine 09 (Due) ceFAZolin (Ancef) (100 mg/mL) injection solution 1 g (COMPLETED) 1 g, Intravenous, ONCE, 1 dose, On Wed11/12/23 at 1015, To be prepared by and administered by Anesthesia. Reconstitute each ceFAZolin 1 gram vial with 10 mL of NS or SWFI = 100 mg/mL May inject IV without further dilution over 3 to 5 minutes., Indication for (Active or Suspected): Prophylaxis 1000 (New Bag - Prov ider: Anjum Saul, HEALTH CLINICIAN) PRN Medication Order 11/10/2023 11/11/2023 11/12/2023 BUPivacaine (pf) (Marcaine) (2.5 mg/mL) 0.25% injection (CANCELED) PRN, Starting on Wed11/12/23 at 1056, Until Wed11/12/23 at 1403, Intra-Operative (Intra-Procedure), Routine 1056 (Given - Provid er: Carmen Obrien MD - Comment: abdomen) heparin (porcine) (1,000 units/mL) injection (CANCELED) PRN, Starting on Wed11/12/23 at 1029, Until Wed11/12/23 at 1403, Intra-Operative (Intra-Procedure), Routine 1029 (Given - Provid er: Carmen Obrien MD - Comment: 1000 units mixed with 100ml of [id number] units mixed with 10ml of ns) documented in this encounter Care Teams Parole Or Probation Officer Relationship Specialty Start Date End Date Jez Vance MD [address] [place] [address] PCP - General 01/07/10 documented as of this encounter
--- OUTSIDE RECORDS SUMMARY | 2023-11-21 00:07 | XMS_ITS | Encounter Summary ---
Author Organization [facility] Address [facility] [place] [address] Care Team Providers Care Er Physician Name Role Phone Jez Vance MD Primary Care Provider [phone] [phone] Reason for Visit * Surgical (Routine) - Closed Specialty Diagnoses / Procedures Referred By Deena yao Referred To Contact General Surgery Diagnoses Malignant neoplasm of prostate Ros Gonzáles MD [facility] [place] [address] [facility] [address] [place] [address] Referral ID Status Reason Start Date Expiration Date V isits Requested Visits Authorized [id number] Closed Consult, Test & Treat 10/28/2023 10/27/2024 1 1 Encounter Details Date Type Department Care Team (Late st Contact Info) Description 11/09/2023 9:30 AM EDT Office [place] [address] Carmen Obrien MD [facility] [place] [address] Malignant neoplasm of head of pancreas Social History Tobacco Use Types Packs/Day Years [...] from your doctor or pharmacy? Never 11/04/2023 [facility] Utilities Answer Date Recorded In the [...] place to sleep or slept in a mcfp (including now)? No 08/06/2022 Housing Stability Vital Sign Answer Omari e Recorded In the last 12 months, was t here a time when you were not able to pay the mortgage or rent on time? No 11/04/2023 In the past 12 months, how m any times have you moved where you were living? 1 11/04/2023 At any time in the past [address] [facility], were you homeless or living in a mcfp (including now)? No 11/04/2023 [facility] IPV Inpatient [...] Sign Reading Time Taken Comments Blood Pressure 129/70 11/09/2023 9:20 AM EDT Pulse 71 11/09/2023 9:20 AM EDT Temperature - - Respiratory Rate 18 11/09/2023 9:20 AM EDT Oxygen Saturation 100% 11/09/2023 9:20 AM EDT Inhaled Oxygen Concentration - - Weight 83.9 kg (185 lb) 11/09/2023 9:20 AM EDT Height 175.3 cm (5' 9.02) 11/09/2023 9:20 AM ED T Body Mass Index 27.31 11/09/2023 9:20 AM EDT documented in this encounter Progress Notes * Carmen Obrien MD - 11/09/2023 9:30 AM EDT Hepatopancreatobiliary Surgical Oncology Consultation Note Date: 11/09/2023 Primary physician: Jez Vance MD Referring physician: Andrew Reynoso MD Reason for evaluation: Recently diagnosed, localized, pancreatic cancer status post EUS and ERCP History of the present illness: Mr. Jones is an 83-year-old man from [place], [place]. He presented to his primary care physician with nausea, fatigue and progressive jaundice symptoms. A workup was initiated with ultrasound suggesting possible mass in the pancreas with obstructed dilated intrahepatic and extrahepatic bile ducts. MRI was ordered though awaiting scheduling he felt progressively unwell and with worsening jaundice and presented to [facility] ED. His workup and hospital admission are detailed below. 10/23/2023 CT AP showed Hypodense pancreatic head mass concerning for pancreatic neoplasm, causing marked obstruction intrahepatic and extrahepatic biliary dilatation as well as main pancreatic ductdilatation. No evidence of metastatic disease in abdomen or pelvis or lymphadenopathy. 10/24/2023 CT chest showed no metastatic disease. 10/25/[address] Reynoso showed 1.4cm mass in HOP with obstruction of bile duct, highly suspicious for malignancy. 10/25/23 EUS FNA cytopathology showed positive for malignancy, adenocarcinoma. MMR expression intactby IHC. 10/25/2023 ERCP showed Malignant distal biliary stricture s/p ERCP with placement of 10mm x 60mm FCSEMS. Today: 11/09/2023 [facility] Surgery Consult. Mr. Zurita was seen today in the surgery clinic accompanied by his - Scar. He really feels much better since the stent was placed and all his jaundice symptoms-even the itching has resolved. He has lost about 15 pounds he says and currently weighed 140 pounds but his appetite is improving since the stent was placed. He has never had pancreatitis. No post ERCP complications. No history of diabetes. Past Medical History: 1. Recently diagnosed, technically resectable, pancreas cancer status post EUS and ERCP as above 2. Hypertension 3. Hyperlipidemia 4. Prostate cancer on Lupron Past Surgical History: Rotator cuff surgeries Review of systems: A comprehensive ROS questionnaire (scanned into [facility]) was completed by the patient - pertinent surgical related findings are summarized below. All other systems on the questionnaire were reviewed and were negative. No history of chest pain, palpitations, heart attack or stroke. No history of blood clots. He is otherwise very active with housework, yard work and walking. 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 He drinks alcohol very rarely. Tawanaoes not smoke. Family History: He has no brothers, 1 sister, 1 son and 1 daughter. His son-in-law has a history ofmetastatic colon cancer and is a patient of Dr. Parmar. His mother at the age of 98 from oldage. Medications: losartan potassium (COZAAR ORAL) tamsulosin (Flomax) 0.4 mg capsule simvastatin (Zocor) 10 mg tablet montelukast (SINGULAIR) 10 mg tablet ibuprofen (ADVIL;MOTRIN) 600 mg tablet Allergies: No Known Allergies Physical Examination: Vital signs: Blood pressure 129/70, pulse 71, resp. rate 18, height 175.3 cm (5' 9.02), weight 83.9 kg (185 lb), SpO2 100%. 11/09/2023 he weighed 195 pounds General: He is very well-appearing and looks younger than his age of 83 years. He can ambulate on the exam table and difficulty. He is here today with his - Scar. Skin: No jaundice, lesions or masses noted. HEENT: Sclera is anicteric. Chest: Clear to auscultation bilaterally on posterior chest granados. Heart: RRR with no murmurs appreciated. Abdomen: Soft, nondistended and nontender with reducible nontender palpable umbilical hernia. Extremity exam: No peripheral edema bilaterally. Assessment and plans: Benny has a technically resectable biopsy-proven pancreatic cancer status post EUS and ERCP with stent placement by Dr. Reynoso when he presented with painless jaundice symptoms. We reviewed his case at the GI tumor board today and there is no radiographic, based on CT imaging, evidence for distant metastatic disease. His CA 19-9 back on 10/21/2023 was mildly elevated to 79 but that was in the context of his jaundice so I suspect his baseline CA 19-9 will be more within the normal range and can therefore likely not be helpful as a marker of response. We discussed the plan to proceed with laparoscopy to complete the staging workup and then Mediport placement to facilitate getting started with systemic preoperative chemotherapy with modified FOLFIRINOX x 4 months followed by surgery followed by 2 months of postoperative chemotherapy. Much of the appointment was spent detailing the rationale for systemic therapy prior to surgery andafter surgery and the rationale for the 4 + 2 months with surgery after 4 months as a way to ensurethat he receives all 6 months of systemic therapy. The tumor is technically resectable so tumor downstaging or tumor shrinkage with neoadjuvant therapy while potentially beneficial is not the main reason for the neoadjuvant therapy approach which is to treat micrometastatic disease prior to surgery. We also discussed the anatomic rationale for the Whipple surgery and I think he is a good candidatefor minimally invasive robotic Whipple once he completes the 4 months of systemic therapy. Laparoscopy with Mediport placement will be scheduled this 11/12/2023 at the [facility]. He is eager to have the other pancreas tumor clinic evaluations with Byron Storey and Dr. Brownlee who is [id number]'s oncologist for metastatic colon cancer. Time Spent With Patient: 60 minutes of this 80 minute visit were spent in [id number] discussion and counseling the patient as detailed above. documented in this encounter Plan of Treatment Upcoming Encounters Date Type Department Care Team (Late st Contact Info) Description 11/30/2023 9:45 AM EDT TH Visit (TeleHealth) Radiation Oncology at [address] [phone] Adrienne Singh PA [facility] DR HEMATOLOGY [place] [address] 11/30/2023 10:30 AM EDT Infusion Hematology Oncology at [address] [phone] Scheduled Referrals Name Type Priority Associated Diagnoses Orde r Schedule Referral to General Surgery Outpatient Referral Routine Malignant neoplasm of prostate Ordered: 10/28/2023 documented as of this encounter Visit Diagnoses Diagnosis Malignant neoplasm of head of pancreas Malignant neoplasm of prostate- Primary Androgen deprivation therapy Encounter for therapeutic drug monitoring S/P radiotherapy Convalescence following radiotherapy documented in this encounter Care Teams Er Physician Relationship Specialty Start Date End Date Jez Vance MD [address] [place] [address] PCP - General 01/07/10 documented as of this encounter
--- OUTSIDE RECORDS SUMMARY | 2023-11-21 00:07 | XMS_ITS | Encounter Summary ---
Author Organization [facility] Address [facility] [place] [address] Care Team Providers Care Drapery Operator Name Role Phone Jez Vance MD Primary Care Provider [phone] Encounter Details Date Type Department Care Team (Late st Contact Info) Description 11/17/2023 Orders Only Hematology [place] [address] Antonio Brownlee MD [facility] [place] [address] Social History Tobacco Use Types Packs/Day Years [...] from your doctor or pharmacy? Never 11/04/2023 [facility] Utilities Answer Date Recorded In the [...] place to sleep or slept in a care home (including now)? No 08/06/2022 Housing Stability Vital [...] were you homeless or living in a care home (including now)? No 11/04/2023 [facility] IPV Inpatient [...] EDT TH Visit (TeleHealth) Radiation Oncology at [address] [phone] Adrienne Singh PA [facility] DR [place] [address] 11/30/2023 10:30 AM EDT Infusion Hematology Oncology at [address] [phone] documented as of this encounter Visit Diagnoses Not on filedocumented in this encounter Care Teams Drapery Operator Relationship Specialty Start Date End Date Jez Vance MD [address] [place] [address] PCP - General 01/07/10 documented as of this encounter
--- OUTSIDE RECORDS SUMMARY | 2023-11-21 00:07 | XMS_ITS | Encounter Summary ---
Author Organization [facility] Address [facility] [place] [address] Care Team Providers Care [employer] Human[employer] Teacher Name Role Phone Jez Vance MD Primary Care Provider [phone] [phone] Encounter Details Date Type Department Care Team (Late st Contact Info) Description 11/01/2023 Telephone Radiation Oncology at [address] [phone] Sapna Cox Social History Tobacco Use Types Packs/Day Years Used Date Smoking Tobacco: Never Smokeless Tobacco: Never Alcohol Use Standard Drinks/Week Comments Yes 1 (1 standard drink = 0.6 oz pur e alcohol) social drinker once a month [facility] Utilities Answer Date Recorded In the past 12 months has th e electric, gas, oil, or water company threatened to shut off services in your home? No 10/25/2023 Overall Financial Resource Strain (CARDIA) Answe r Date Recorded How hard is it for you to pa y for the very basics like food, housing, medical care, and heating? Not hard at all 08/06/2022 Hunger Vital Sign Answer Date Recorded Within the past 12 months, y ou worried that your food would run out before you got the money to buy more. Never true 10/25/19 24 Within the past 12 months, t he food you bought just didn't last and you didn't have money to get more. Never true 10/25/2023 PRAPARE - Transportation Answer Date Re corded In the past 12 months, has l ack of transportation kept you from medical appointments or from getting medications? No 10/2023 In the past 12 months, has l ack of transportation kept you from meetings, work, or from getting things needed for daily living? No 10/25/2023 Housing Stability Vital Sign Answer Omari e [...] place to sleep or slept in a prison (including now)? No 08/06/2022 Housing Stability Vital Sign Answer Omari e Recorded In the last 12 months, was t here a time when you were not able to pay the mortgage or rent on time? No 10/25/2023 In the past 12 months, how m any times have you moved where you were living? 1 10/25/2023 At any time in the past 12 m [facility], were you homeless or living in a prison (including now)? No 10/25/2023 IPV Inpatient Questions Answer Date Recorded Does [...] EDT TH Visit (TeleHealth) Radiation Oncology at [address] [phone] Adrienne Singh PA [facility] [place] [address] 11/30/2023 10:30 AM EDT Infusion Hematology Oncology at [address] [phone] documented as of this encounter Visit Diagnoses Not on filedocumented in this encounter Care Teams [employer] Teacher Relationship Specialty Start Date End Date Jez Vance MD [address] [place] [address] PCP - General 01/07/10 documented as of this encounter
--- OUTSIDE RECORDS SUMMARY | 2023-11-21 00:07 | XMS_ITS | Encounter Summary ---
Author Organization [facility] [place] [address] Care Team Providers Care Supervisor Scouring Pads Name Role Phone Jez Vance MD Primary Care Provider [phone] [phone] Reason for Visit * Reason Comments Genetic Evaluation Encounter Details Date Type Department Care Team (Late st Contact Info) Description 11/09/2023 10:30 AM EDT Office Visit Hematology [place] [address] Kemal Matthews V, [facility] [place]ematology/[place] [address] Malignant neoplasm of head of pancreas; Malignant neoplasm of prostate; Family history of prostate cancer Social History Tobacco Use Types Packs/Day Years [...] doctor or pharmacy? Never 11/04/2023 [facility] Utilities Answer Date Recorded In [...] place to sleep or slept in a penitentiary (including now)? No 08/06/2022 Housing Stability Vital Sign Answer Omari e Recorded In the last 12 months, was t here a time when you were not able to pay the mortgage or rent on time? No 11/04/2023 In the past 12 months, how m any times have you moved where you were living? 1 11/04/2023 At any time in the past 12 m [facility], were you homeless or living in a penitentiary (including now)? No 11/04/2023 IPV Inpatient Questions [...] as of this encounter Progress Notes * Kemal Matthews V, [facility] - 11/09/2023 10:30 AM EDT Benny Zurita was seen by Kemal Matthews [facility] in consultation at the request of Ros fox regarding possible heritable predisposition to cancer. I spent <15 minutes of this face to face encounter with the patient gathering medical and familyhistory and discussing the likelihood of a genetic predisposition to cancer and the option of genetic testing. Benny's Scar was present for today's visit. Reason for referral/Chief complaint Personal history of pancreatic and prostate cancer and family history of prostate cancer. Medical history Cancer hx and treatment: Benny is an 83yo male who presents today due to his recent diagnosis of pancreatic cancer. His workup is described below: 10/23/2023 CT AP showed Hypodense pancreatic head mass concerning for pancreatic neoplasm, causing marked obstruction intrahepatic and extrahepatic biliary dilatation as well as main pancreatic duct dilatation. No evidence of metastatic disease in abdomen [...] with placement of 10mm x 60mm FCSEMS. Benny meets with Dr. Obrien and Dr. Brownlee today to discuss surgical and medical management. Additionally, Benny was diagnosed with prostate cancer in 2022. Prostate biopsy on 07/06/22 was positive for prostate adenocarcinoma, argentina 4+4 and is s/p radiotherapy and takes Lupron. Family History of Cancer Problem Relation Age of Onset Prostate Cancer Father 83 metastatic Maternal ethnic background is Swiss, Cambodian. Paternal ethnic background is Malagasy. There is no known Ashkenazi Mandaen ancestry. Genetic risk assessment Based on personal and/or family history, the likelihood that Benny would be found to have a mutation in a cancer predisposition gene is high enough to offer the option of genetic testing. Specifically, Benny meets NCCN criteria for BRCA1/2 testing due to his diagnosis of pancreatic cancer, personalhistory of argentina 8 prostate cancer, and family history of metastatic prostate cancer in his father. Reviewed the purpose of testing, including the potential for results to impact pancreatic cancer treatment such as with sioux chemotherapy and/or PARP inhibitors as well as to identify hereditary cancer risks for Benny and his relatives. Panel genetic testing for an inherited predisposition to cancer, including pancreatic and prostate,was discussed. The risks, benefits and limitations of panel genetic testing were reviewed, specifically a high rate of identifying a variant of uncertain significance, lack of knowledge of cancer risk for newly identified, moderate risk genes included in the panel and lack of effective screening, as well as cancer risk for other cancers not observed in the family. We reviewed dominant inheritance, meaning that if a mutation is detected there is a 50% chance for Benny's children to have also inherited the same gene alteration. Benny opted for testing with [facility]' CancerNext-Expanded +RNAinsight Panel, a next generation sequencing panel that simultaneously analyzes 71 genes, including BRCA1 and BRCA2, that contribute to increased risk for cancer. Benny was consented. His blood sample will be drawn today and sent to [facility]. Testing will take up to 3 weeks from when the lab receives the sample. Benny will be contacted via telephone once his test results become available. At that time, we will discuss with Benny the implications that this test result may have for him as well as his family members, review any recommendedscreening guidelines for cancer prevention and early detection, and answer any questions he may have. documented in this encounter Plan of Treatment Upcoming Encounters Date Type Department Care Team (Late st Contact Info) Description 11/30/2023 9:45 AM EDT TH Visit (TeleHealth) Radiation Oncology at [address] [phone] Adrienne Singh PA [facility] HEMATOLOGY [place] [address] 11/30/2023 10:30 AM EDT Infusion Hematology Oncology at [address] [phone] documented as of this encounter Visit Diagnoses Diagnosis Malignant neoplasm of head of pancreas Malignant neoplasm of prostate Family history of prostate cancer Family history of malignant neoplasm of prostate Malignant neoplasm of prostate- Primary Androgen deprivation therapy Encounter for therapeutic drug monitoring S/P radiotherapy Convalescence following radiotherapy documented in this encounter Care Teams Supervisor Scouring Pads Relationship Specialty Start Date End Date eJz Vance MD [address] [place] [address] PCP - General 01/07/10 documented as of this encounter
--- OUTSIDE RECORDS SUMMARY | 2023-11-21 00:07 | XMS_ITS | Encounter Summary ---
Author Organization [facility] [address] Care Team Providers Care Groundwater Programs Director Name Role Phone Jez Vance MD Primary Care Provider [phone] Encounter Details Date Type Department Care Team (Late st Contact Info) Description 11/17/2023 Notes Only Hematology [place] [address] Larry Mike, [facility] Social History Tobacco Use Types Packs/Day Years [...] from your doctor or pharmacy? Never 11/04/[address] [facility] Utilities Answer Date Recorded In the past 12 months has [employer] gas, oil, or water 2C2P threatened to shut off services in your [...] time in the past 12 m [facility], were you homeless or living in a care home (including now)? No 11/04/2023 IPV Inpatient Questions [...] as of this encounter Progress Notes * Larry Mike, [facility] - 11/17/2023 12:10 PM EDT Clinical Oncology Pharmacist Note Oncology PGx Results PATIENT ID: Benny Zurita is a 83 y.o. male with pancreatic adenocarcinoma. The patient's currenttreatment plan includes: FOLFIRINOX. Pharmacist interpretation of Oncology PGx results is as follows: Interpretation: Gene Based on most recent FDA, CPIC (Clinical Pharmacogenetics Implementation Consortium), and DPWG([place] pharmacogenetics working group) guidelines: DPYD Intermediate metabolizer - Dose reduction is recommended. *1/*2A DPYD Activity Score = 1 (Intermediate Metabolizer) Recommendation per 2018 CPIC Guidelines: Reduce dose of fluoropyrimidines by 50% followed by titration for tolerability.* For Mr. Zurita, orders were entered for a 20% dose reduction prior to these results at the discretion of Dr. Brownlee. Given this information and the a 50% dose reduction from the currently ordered dose of 1920mg/m2 would be reasonable, therefore recommend initiating therapy at 960mg/m2 and increasing based on tolerability. Increase the dose if experiencing no or clinically tolerable toxicity in the first two cycles to maintain efficacy; decrease the dose if not tolerating the starting dose to minimize toxicities *This recommendation was updated from the 2017 guidelines from a 25-50% dose reduction based on theresults of a prospective study that found evidence to support a 50% dose reduction for decreased function alleles. NUDT15 Normal metabolizer - No action necessary. TPMT Normal metabolizer - No action necessary. UGT1A1 Intermediate metabolizer - no recommended action UGT1A1*1/*28 impact: The UGT1A1*1/*28 is more common in Western populations than the wild-type (*1/*1), and was stronglyrepresented in early irinotecan phase I studies. No dosing action is recommended. UGT1A1*1/*93 impact: The *93 allele ([id number]) is commonly seen in linkage with the *28 allele. No definitive relationship between neutropenia and the UGT1A1*1/*93 genotype has been delineated with irinotecan. No dosing action is recommended. Based on the above results, 5-Fluorouracil, Capecitabine, and Tegafur have been added to the patient's chart as an allergy. Please reference dosing guidance for initiation of any future agents that may be affected by the documented gene. The patient was evaluated by a clinical pharmacist for drug-gene interactions impacted by DPYD, NUDT15, TPMT, and UGT1A1, which is limited to the following medications: 5-Fluorouracil, Capecitabine, Tegafur, Mercaptopurine, Thioguanine, Azathioprine, Belinostat, Irinotecan, and Sacituzumab govitecan-hziy (brand name Trodelvy). Please do not hesitate to reach out with any questions. Larry Mike RPH 11/17/23 documented in this encounter Plan of Treatment Upcoming Encounters Date Type Department Care Team (Late st Contact Info) Description 11/30/2023 9:45 AM EDT TH Visit (TeleHealth) Radiation Oncology at [address] [phone] Adrienne Singh PA [facility] DR HEMATOLOGY [place] [address] 11/30/2023 10:30 AM EDT Infusion Hematology Oncology at [address] [phone] documented as of this encounter Visit Diagnoses Not on filedocumented in this encounter Care Teams Groundwater Programs Director Relationship Specialty Start Date End Date Jez Vance MD [address] [place] [address] PCP - General 01/07/10 documented as of this encounter
--- OUTSIDE RECORDS SUMMARY | 2023-11-21 00:07 | XMS_ITS | Clinical Summary ---
Author Organization [facility] Address One [facility] [place] [address] Care Team Providers Care Manager Zone Name Role Phone Jez Vance MD Primary Care Provider [phone] Allergies Active Allergy Reactions Criticality Noted Date Comments Capecitabine Other (See Comments) Medium 11/17/2023 Intermediate metabolizer. See pharmacist note from 11/17/2023 for dosing recommendations. Fluorouracil Other (See Comments) Medium 11/17/2023 Intermediate metabolizer. See pharmacist note from 11/17/2023 for dosing recommendations. Tegafur Other (See Comments) Medium 11/17/2023 Intermediate metabolizer. See pharmacist note from 11/17/2023 for dosing recommendations. Medications Medication Sig Dispensed Refills Start Date End Date Status montelukast (SINGULAIR) 10 mg tablet Take 5 mg by mouth nightly. 09/02/2005 Active ibuprofen (ADVIL;MOTRIN) 600 mg tablet Take 600 mg by mouth every 8 hours as needed for Pain. 09/02/2005 Active simvastatin (Zocor) 10 mg tablet Take 20 mg by mouth daily. Active losartan potassium (COZAAR ORAL) Take 50 mg by mouth nightly. Active tamsulosin (Flomax) 0.4 mg capsule Take 1 capsule by mouth daily. 90 tablet 3 10/30/2022 Active wwhpxm-dgkhtkkr-yczxh se YUN (Creon 24) 24,000-76,000 -120,000 unit capsuleIndications:Ma lignant neoplasm of head of pancreas,Exocrine pancreatic insufficiency Take 2 po with meals and 1 po with snacks (3 snacks), 9 per day 270 capsule 11 11/09/2023 Active prochlorperazine (Compazine) 10 mg tabletIndications:Deedee motherapy induced nausea and vomiting Take 1 tablet by mouth every 6 hours as needed for Nausea. 30 tablet 3 11/19/2023 Active Active Problems Problem Noted Date Diagnosed Date Malignant neoplasm of head of pancreas Hypokalemia 10/24/2023 Painless jaundice 10/23/2023 Malignant neoplasm of prostate 07/31/2022 Cancer Staging:Clinical:Stage IIC(cT1c, cN0, cM0, PSA: 11.9, Grade Group: 4) - Signed by Toro Hayes MD on 07/31/2022 Encounters Date Type Department Care Team Description 11/19/2023 10:30 AM EDT Infusion Hematology Oncology at [address] [phone] Malignant neoplasm of head of pancreas 11/19/2023 10:30 AM EDT Clinical Support Hematology/Oncol ogy at [address] [address] Nadege Howell, RD Arrived 11/19/2023 10:00 AM EDT Office Visit Hematology/Oncol ogy at [address] [address] Antonio Brownlee MD LaRoza, Stephanie A, APRN Malignant neoplasm of head of pancreas; Chemotherapy induced nausea and vomiting 11/18/2023 Travel 11/17/2023 Orders Only Hematology [place] [address] Antonio Brownlee MD 11/17/2023 Notes Only Hematology [place] [address] Larry Mike, [facility] 11/14/2023 Multidisciplinary Ca re Committee [place] [address] Carmen Obrien MD 11/12/2023 9:38 AM EDT Anesthesia Event [facility] [place] [address] Lore Maxwell MD Butler, Eric J, CRNA 11/12/2023 9:29 AM EDT - 11/12/2023 11:14 AM EDT Surgery [facility] [place] [phone] Carmen Obrien MD YUNG\NGUYEN.CATHETER,TU NNELED, WITH SQ PORT OR PUMP OVER 5YR (WRVU 5.79) 11/12/2023 7:40 AM EDT - 11/12/2023 12:00 PM EDT Hospital Encounter [facility] [place] [phone] Carmen Obrien MD Cardiac arrhythmia, unspecified cardiac arrhythmia type Discharge Disposition: Home 11/12/2023 Travel 11/09/2023 1:30 PM EDT Clinical Support Hematology and Oncology at [address] Estrella Tompkins, PALLAVI Malignant neoplasm of prostate 11/09/2023 12:28 PM EDT - 11/09/2023 11:59 PM EDT Hospital Encounter Hematology and Oncology at [place] [address] Malignant neoplasm of head of pancreas; Malignant neoplasm of prostate Discharge Disposition: Home 11/09/2023 11:00 AM EDT Office Visit Hematology and Oncology at [place] [phone] Antonio Brownlee MD Malignant neoplasm of head of pancreas; Exocrine pancreatic insufficiency 11/09/2023 10:30 AM EDT Office Visit Hematology and Oncology at [place] [phone] Kemal Matthews LGC Malignant neoplasm of head of pancreas; Malignant neoplasm of prostate; Family history of prostate cancer 11/09/2023 9:30 AM EDT Office Visit General Surgery at [place] [phone] Carmen Obrien MD Malignant neoplasm of head of pancreas 11/09/2023 Telephone Hematology/Oncol ogy at [address] [phone] Kelly Buchanan 11/08/2023 Travel 11/08/2023 Orders Only Hematology [place] [address] Kemal Matthews V, LGC Malignant neoplasm of head of pancreas; Malignant neoplasm of prostate 11/04/2023 Travel 11/01/2023 Telephone Radiation Oncology at [address] [phone] Sapna Cox 10/30/2023 Travel 10/29/2023 Telephone [place] [address] Carmen Obrien MD 10/28/2023 Orders [place] [address] Andrew Reynoso MD 10/28/2023 Orders [place] [address] Andrew Reynoso MD 10/25/2023 2:39 PM EDT Anesthesia Event [place] [address] Kenyatta Sarmiento MD Wen, Louise Y, MD 10/25/2023 1:55 PM EDT Ancillary Procedure [place] [address] 10/25/2023 1:53 PM EDT - 10/25/2023 3:08 PM EDT Surgery [place] [address] Andrew Reynoso MD UPPER EUS- ENDOSCOPIC ULTRASOUND (WRVU 3.47) 10/25/2023 Notes [place] [address] Patrizia Bassett 10/23/2023 12:17 PM EDT - 10/27/2023 3:16 PM EDT Hospital Encounter Hematology/Oncol ogy Unit Level 1 [place] [address] Leia Henley MD Gruber, MD Belkys Buitrago Timothy R, MD Pokharel, Ashik, MD Jaundice; Pancreatic mass; Hypokalemia; Painless jaundice; Malignant neoplasm of prostate Discharge Disposition: Home 10/23/2023 Travel 10/21/2023 Lab [place] [address] Brielle Lowry PA Other specified diseases of pancreas; Abnormal weight loss; Pruritus, unspecified; Unspecified abdominal pain 10/21/2023 Interpretation Only [address] [phone] Jez Vance MD from Last 3 Months Family History Medical History Relation Comments Heart Disease Father Prostate Cancer Father metastatic Relation Status Comments Daughter Alive Father Mother Sister Son Alive Social History Tobacco Use Types Packs/Day Years Used Date Smoking Tobacco: Never Smokeless Tobacco: Never Tobacco Cessation:Counseling Given: Not Answered Alcohol Use Standard Drinks/Week Comments Yes 1 (1 standard drink = 0.6 oz pur e alcohol) social drinker once a month B1300 Health Literacy Answer Date Recor ded How often do you need to hav e someone help you when you read instructions, pamphlets, or other written material from your doctor or pharmacy? Never 11/04/2023 [facility] Utilities Answer Date Recorded In the past 12 months has [employer], gas, oil, or water [employer] threatened to shut off services in your [...] any time in the past 12 m [facility], were you homeless or living in a prison (including now)? No 11/04/2023 [facility] IPV Inpatient [...] on file Sexual Orientation Not on file Last Filed Vital Signs Vital Sign Reading Time Taken Comments Blood Pressure 136/61 11/19/2023 9:49 AM EDT Pulse 75 11/19/2023 9:49 AM EDT Temperature 36.3 ??C (97.3 ??F) 11/19/2023 9:49 AM ED T Respiratory Rate 18 11/19/2023 9:49 AM EDT Oxygen Saturation 100% 11/19/2023 9:49 AM EDT Inhaled Oxygen Concentration - - Weight 84.1 kg (185 lb 6.4 oz) 11/19/2023 9:49 A M EDT Height 177.8 cm (5' 10) 11/19/2023 9:49 AM EDT Body Mass Index 26.6 11/19/2023 9:49 AM EDT Plan of Treatment Upcoming Encounters Date Type Department Care Team (Late st Contact Info) Description 11/30/2023 9:45 AM EDT TH Visit (TeleHealth) Radiation Oncology at [address] [phone] Adrienne Singh PA [facility] [address] [place] [address] 11/30/2023 10:30 AM EDT Infusion Hematology Oncology at [address] [address] Health Maintenance Due Date Last Done Comments Tetanus/Diphtheria/Pertussis Vaccines (1 - Tdap) 06/21 Zoster vaccine (1 of 2) 1992 Pneumoccocal Vaccine: 65+ (1 of 1 - PCV) 06/22/2007 Covid-19 Vaccine (1 - 2022- season) 2023 Influenza (Flu) vaccine (1 o f 1 - Influenza standard series) 10/17/2023 Medical Devices Implanted Type Area Label Printing Machinist Device Identifier Shelf Expiration Date Model / Serial / Lot Stent Wallflex [id number] Rx Platinol Fully Covered ([id number]) - [id number] Implanted:Qty: 1 on 10/25/2023 by Andrew Reynoso MD at [facility]ANT[facility] Bile Duct [employer] - [employer] [place] [id number] 07/21/2025 [id number] / / [id number] Port Infusion 8fr Cath Power Lp Ct Plastic Dignity ([id number]) - [id number] Implanted:Qty: 1 on 11/12/2023 by Carmen Obrien MD at [facility] [employer] N/A: Chest [employer] - [employer] [place] 05/15/2028 [id number] / / [id number] Procedures Procedure Name Priority Date/Time Associated Diagnosis Comments LAB SCAN 11/19/2023 12:00 AM EDT XR CHEST ONE VIEW Routine 11/12/2023 11: 33 AM EDT EKG 12-LEAD STAT 11/12/2023 11:23 AM EDT Cardiac arrhythmia, unspecified cardiac arrhythmia type XR FLUORO NO RAD <1HR - OR USE Routine 11/12/2023 10:35 AM EDT Fluoroscopy Exam Up To 1 Hr Phy Or Oth th Care Prov (87787) Yes 11/12/2023 9:38 AM EDT [facility] Insert Tunneled CV Cath w SubQ Port, Age 5 Yrs or Older (09950) Yes 11/12/2023 9:38 AM EDT [facility] Lap, Diagnostic Abdomen (75358) Yes 11/12/2023 9:38 AM EDT [facility] PGX ONCOLOGY Routine 11/09/2023 12:35 PM EDT Malignant neoplasm of head of pancreas CARBOHYDRATE ANTIGEN 19-9 Routine 11/09/2023 12:35 PM EDT Malignant neoplasm of head of pancreas COMPREHENSIVE METABOLIC PANEL Routine 11/09/2023 12:35 PM EDT Malignant neoplasm of head of pancreas CBC (WITH DIFF) Routine 11/09/2023 12:35 PM EDT Malignant neoplasm of head of pancreas COMPREHENSIVE METABOLIC PANEL Routine 10/27/2023 3:35 AM EDT MAGNESIUM Routine 10/27/2023 3:35 AM EDT PHOSPHORUS Routine 10/27/2023 3:35 AM EDT CBC (WITH DIFF) Routine 10/27/2023 3:35 AM EDT COMPREHENSIVE METABOLIC PANEL Routine 10/26/2023 4:00 AM EDT MAGNESIUM Routine 10/26/2023 4:00 AM EDT PHOSPHORUS Routine 10/26/2023 4:00 AM EDT CBC (WITH DIFF) Routine 10/26/2023 4:00 AM EDT XR ERCP Routine 10/25/2023 4:40 PM EDT CYTOLOGY FNA OTHER THAN THYROID Routine 10/25/2023 3:19 PM EDT CYTOLOGY FNA Routine 10/25/2023 3:19 PM EDT Ercp Stent Placement Biliary Or Pancreatic Duct(44082) 10/25/2023 2:37 PM EDT pancreas head mass CHOLANGIOGRAM 10/25/2023 2:37 PM EDT pancreas head mass Ercp Balloon Dilatation Biliary/Pancreatic Duct Or Ampulla Ea Duct (01239) 10/25/2023 2:37 PM EDT pancreas head mass Ercp, Sphincterotomy (53760) 10/25/2023 2:37 PM EDT pancreas head mass Upgi Endoscopy W/Us Fn Bx (48828) 10/25/2023 2:37 PM EDT pancreas head mass Ercp, Diagnostic (31021) 10/25/2023 2:37 PM EDT pancreas head mass Endoscopic Us Exam, Esoph (23463) 10/25/2023 2:37 PM EDT pancreas head mass ERCP Routine 10/25/2023 2:24 PM EDT UPPER EUS-ENDOSCOPIC ULTRASOUND Routine 10/25/2023 2:23 PM EDT COMPREHENSIVE METABOLIC PANEL Routine 10/25/2023 3:53 AM EDT CBC (WITH DIFF) Routine 10/25/2023 3:53 AM EDT BASIC METABOLIC PANEL Timed 10/24/2023 4:[address] CHEST W CONTRAST Routine 10/24/2023 1 :41 PM EDT COMPREHENSIVE METABOLIC PANEL Routine 10/24/2023 4:11 AM EDT CBC (WITH DIFF) Routine 10/24/2023 4:11 AM EDT PHOSPHORUS STAT Add-On 10/23/2023 4:27 PM EDT MAGNESIUM STAT Add-On 10/23/2023 4:27 PM EDT BASIC METABOLIC PANEL STAT 10/23/2023 4:27 PM EDT EKG 12-LEAD STAT 10/23/2023 1:40 PM EDT ABORH RECHECK STAT 10/23/2023 1:[address] ABDOMEN AND PELVIS W CONTRAST STAT 10/23/2023 1:10 PM EDT TYPE AND SCREEN (MC/CGP/FREDY) STAT 10/23/2023 12:32 PM EDT CBC (WITH DIFF) STAT 10/23/2023 12:32 PM EDT LIPASE STAT 10/23/2023 12:32 PM EDT COMPREHENSIVE METABOLIC PANEL STAT 10/23/2023 12:32 PM EDT CARBOHYDRATE ANTIGEN 19-9 Routine 10/21/2023 3:09 PM EDT Other specified diseases of pancreas Abnormal weight loss Pruritus, unspecified Unspecified abdominal pain US ABDOMEN LIMITED Routine 10/21/2023 9: 40 AM EDT DIAGNOSTIC RADIOLOGY SCAN 09/07/2023 12:00 AM EDT from Last 3 Months Results * Scan Doc: Lab (11/19/2023 12:00 AM EDT) Narrative 11/19/2023 12:00 AM EDT Ordered by an unspecified provider. Scanning Provider MEDIA MGR SCAN EXT O RDR/RSLT * XR Chest One View (11/12/2023 11:33 AM EDT) WORKSTATION ID [id number] RAD Anatomical Region Laterality Modality Chest N/A [...] who have questions please contact the health acute care registered nurse that requested your imaging first. ? Electronically signed by: Elton Marshall MD, [facility] ([phone]), at 11/12/2023 3:22 PM Narrative 11/12/2023 3:22 [...] patients who have questions please contactthe health acute care registered nurse that requested your imaging first. Electronically signed by: Elton Marshall MD, [facility]([phone]), at 11/12/2023 3:22 PM Carmen Obrien MD IMG DX ORDERABLES * EKG 12 Lead (11/12/2023 11:23 AM EDT) Only the most recent of2 resultswithin the time period is included. Ventricular rate 55 BPM MUSE SYSTEM Atrial Rate 55 BPM MUSE SYSTEM P-R Interval 150 ms MUSE SYSTEM QRS Duration 108 ms MUSE SYSTEM Q-T Interval 496 ms MUSE SYSTEM QTC Calculated (Bezet) 474 ms MUSE SYSTEM Calculated P Benton 49 degrees MUSE SYSTEM Calculated R Benton -55 degrees MUSE SYSTEM Calculated T Benton 8 degrees MUSE SYSTEM INTERPRETATION Sinus bradycardia [...] Carmen Obrien MD IMG FLUORO ORDERAB LES * (ABNORMAL) PGx Oncology (11/09/2023 12:35 PM EDT) Pathologist [facility] NGS Report Status Abnormal(A ) 11/17/2023 9:14 AM EDT [facility] Blood VENOUS BLOOD SPECIMEN / Unknown Venipuncture / Unknown 11/09/2023 12:35 PM EDT 11/09/2023 12:36 PM EDT Antonio Brownlee MD MOLECULAR ORDERABLES Performing Organization Address [facility] Co de Phone Number [facility] [place] [address] * (ABNORMAL) Carbohydrate Antigen 19-9 (11/09/2023 12:35 PM EDT) Only the most recent of2 resultswithin the time period is included. CA 19-9 110.0(H) <=35.0 units/mL 11/09/2023 1:[address] [facility] Comment:This result was gene rated using a Doreen Danis immunoassay. Results obtained from other methods or manufacturers cannot be used interchangeably with this method. Blood VENOUS BLOOD SPECIMEN / Unknown Venipuncture / Unknown 11/09/2023 12:35 PM EDT 11/09/2023 12:36 PM EDT Antonio Brownlee MD CHEMISTRY ORDERABLES [facility] [place] [address] * (ABNORMAL) CBC (with Diff) (11/09/2023 12:35 PM EDT) Only the most recent of6 resultswithin the time period is included. White Blood Cell 7.04 4.00 - 9.50 x10(3)/mc L 11/09/2023 1:[address] [facility] Red Blood Cell 3.81(L) 4.58 - 5.54 x10(6)/mc L 11/09/2023 1:[address] [facility] Hemoglobin 12.5(L) 13.7 - 16.5 g/dL 11/09/2023 1:[address] [facility] Hematocrit 36.5(L) 40.5 - 48.5 % 11/09/2023 1:[address] [facility] Mean Cell Volume 95.8(H) 82.9 - 93.1 fL 11/09/2023 1:[address] [facility] Mean Cell Hemoglobin 32.8(H) 27.5 - 32.1 pg 11/09/2023 1:[address] [facility] Mean Cell Hemoglobin Concentration 34.2 32.0 - 35.7 g/dL 11/09/2023 1:[address] [facility] Platelet 256 145 - 357 x10(3)/mc L 11/09/2023 1:[address] [facility] Mean Platelet Volume 10.7 7.6 - 12.9 fL 11/09/2023 1:[address] [facility] RDW Standard Deviation 44.8 36.0 - 45.0 fL 11/09/2023 1:[address] [facility] RDW coefficient of variation 12.8 11.4 - 13.8 % 11/09/2023 1:[address] [facility] NRBC% auto 0.0 % 11/09/2023 1:[address] [facility] NRBC Absolute <0.01 <0.01 x10(3)/mc L 11/09/2023 1:[address] [facility] Neutrophil % 74.7 % 11/09/2023 1:[address] [facility] Neutrophil Absolute (ANC) - Automated 5.26 1.70 - 6.10 x10(3)/mc L 11/09/2023 1:[address] [facility] Lymph % 14.9 % 11/09/2023 1:[address] [facility] Lymph Absolute 1.05 0.90 - 3.20 x10(3)/mc L 11/09/2023 1:[address] [facility] Monocyte % 7.5 % 11/09/2023 1:[address] [facility] Monocyte Absolute 0.53 0.30 - 0.90 x10(3)/mc L 11/09/2023 1:[address] [facility] Eos % 2.0 % 11/09/2023 1:[address] [facility] Eos Absolute 0.14 0.00 - 0.40 x10(3)/mc L 11/09/2023 1:[address] [facility] Basophil % 0.6 % 11/09/2023 1:[address] [facility] Baso Absolute 0.04 0.00 - 0.10 x10(3)/mc L 11/09/2023 1:[address] [facility] Immature Gran % 0.3 % 1:[address] [facility] Immature Gran Absolute <0.04 0.00 - 0.04 x10(3)/mc L 11/09[facility]2023 [facility] Blood VENOUS BLOOD SPECIMEN / Unknown Venipuncture / Unknown 11/09/2023 12:35 PM EDT 11/09/2023 12:36 PM EDT Antonio Brownlee MD HEMATOLOGY ORDERABLE S [facility] [place] [address] * (ABNORMAL) Comprehensive metabolic panel Non-fasting (11/09/2023 12:35 PM EDT) Only the most recent of6 resultswithin the time period is included. Glucose 115 65 - 199 mg/dL 11/09/2023 1:[address] [facility] Comment:Glucose Concentratio n >=200 mg/dL plus symptoms is consistent with Diabetes Mellitus. Blood Urea Nitrogen 15 10 - 20 mg/dL 11/09/2023 1:[address] [facility] Creatinine 0.68(L) 0.80 - 1.50 mg/dL 11/09/2023 1:[address] [facility] Sodium 138 135 - 145 mMol/L 11/09/2023 1:[address] [facility] Potassium 4.0 3.5 - 5.0 mMol/L 11/09/2023 1:[address] [facility] Chloride 102 98 - 107 mMol/L 11/09/2023 1:[address] [facility] Carbon Dioxide 24 22 - 31 mMol/L 11/09/2023 1:[address] [facility] Anion Gap 12 5 - 15 mMol/L 11/09/2023 1:[address] [facility] Calcium 8.9 8.5 - 10.5 mg/dL 11/09/2023 1:[address] [facility] Protein, Total 6.6 6.1 - 8.0 g/dL 11/09/2023 1:[address] [facility] Albumin 4.2 3.2 - 5.2 g/dL 11/09/2023 1:[address] [facility] Aspartate Aminotransferase 21 <=39 unit/L 11/09/2023 1:[address] [facility] Alanine Aminotransferase 50 0 - 55 unit/L 11/09/2023 1:[address] [facility] Alkaline Phosphatase 159(H) 40 - 130 unit/L 11/09/2023 1:[address] [facility] Bilirubin, Total 0.9 <=1.3 mg/dL 11/09/2023 1:[address] [facility] Est Glomerular Filtration Rate - Male 93 mL/min/1. 73 m?? 11/09/2023 1:[address] [facility] Comment: This patient's estimated GFR [...] Fasting Status No 11/09/2023 1:[address] [facility] Blood VENOUS BLOOD SPECIMEN / Unknown Venipuncture / Unknown 11/09/2023 12:35 PM EDT 11/09/2023 12:36 PM EDT Antonio Brownlee MD CHEMISTRY ORDERABLES [facility] [place] [address] * (ABNORMAL) Phosphorus (10/27/2023 3:35 AM EDT) Only the most recent of3 resultswithin the time period is included. Phosphorus 2.4(L) 2.5 - 4.5 mg/dL 10/27/2023 5:[address] [facility] Blood VENOUS BLOOD SPECIMEN / Unknown IP Care Team Draw / Unknown 10/27/2023 3:35 AM EDT 10/27/2023 3:47 AM EDT Ros Gonzáles MD CHEMISTRY ORDERABLES Performing Organization Address [facility] de Phone Number [facility] [place] [address] * (ABNORMAL) Magnesium (10/27/2023 3:35 AM EDT) Only the most recent of3 resultswithin the time period is included. Magnesium 0.63(L) 0.69 - 1.07 mMol/L 10/27/2023 5:[address] [facility] Blood VENOUS BLOOD SPECIMEN / Unknown IP Care Team Draw / Unknown 10/27/2023 3:35 AM EDT 10/27/2023 3:47 AM EDT Ros Gonzáles MD CHEMISTRY ORDERABLES Performing Organization Address [facility] de Phone Number [facility] [place] [address] * XR ERCP (10/25/2023 4:40 PM EDT) Narrative [facility] - 10/25/2023 4:45 PM EDT See PACS for result report. Ros Gonzáles MD IMG FILM LIBRARY ORD ERABLES Performing Organization Address [facility] de Phone Number [place], [place] * (ABNORMAL) Cytology FNA (10/25/2023 3:19 PM EDT) Case Report Medical Cytology Report ? Case: [id number] ? Authorizing Provider: ??Ros Gonzáles MD ?Collected: ? 10/25/2023 1519 ? Ordering Location: ? Gastroenterology at [facility] ?? Received: ?10/25/2023 1627 ? Pathologist: ? Garrick Vuong MD ? Specimen: ?Pancreas, Head, mass ? 10/28/2023 11:54 AM [facility] Specimen Source Pancreas, Head (EUS-guided FNA) 10/28/2023 11:54 AM [facility] Final Diagnosis Positive for malignancy 10/28/2023 11:54 AM [facility] Diagnosis Discussion Adenocarcinoma. (Cell block was examined.) 10/28/2023 11:54 AM [facility] Specimen Adequacy Satisfactory for evaluation. 10/28/2023 11:54 AM [facility] Additional Studies Block Antibody Result A2 MLH-1 Positive, intact nuclear staining A2 MSH-2 Positive, intact nuclear staining A2 MSH-6 Positive, intact nuclear staining A2 PMS-2 Positive, intact nuclear staining Interpretation: Immunostains for MLH-1, MSH-2, MSH-6, and PMS-2 reveal intact nuclear staining in tumor cells. Immunohistochemical assays were performed on paraffin-embedded tissue sections fixed in 10% neutral buffered formalin for 6-72 hours using the polymer system technique with appropriate controls. The assays were performed according to the ultrasound tester's instructions using anti MLH-1 (ES05), anti-MSH-2 ([id number]), andti-MSH-6 (44), and anti-PMS-2 (MRQ-28) antibodies. 10/28/2023 11:54 AM [facility] Disclaimer(s) Formalin-fixed, paraffin-embedded tissue sections are studied using the polymer technique with appropriate positive and negative controls. These IHC studies provide the pathologist with adjunctive diagnostic information. Antibody specificity has been verified by testing antibodies on a series of in-house tissues with known immunohistochemical performance characteristics. The clinical interpretation of any antibody positive staining or its absence is evaluated within the context of clinical presentation, morphology, histopathological criteria and other diagnostic tests. 10/28/2023 11:54 AM [facility] Clinical Information 83 yrs old male/EUS/ERCP/ pancreas head mass, malignant biliary obstruction 10/28/2023 11:54 AM [facility] Immediate Assessment Fine Needle Aspiration Immediate Assessment: Evaluation Episode #1 (1 slide) at 1522 on 10/25/23: Inadequate for final diagnosis. Rare clusters of highly atypical epithelial cells present. Evaluation Episode #2 (1 slide) at 1530 on 10/25/23: Inadequate for final diagnosis. Clusters of generally bland epithelial cells present. Evaluation Episode #3 (1 slide) at 1544 on 10/25/23: Inadequate for final diagnosis. Mostly blood. Evaluation Episode #4 (1 slide) at 1552 on 10/25/23: Inadequate for final diagnosis. Mostly blood. Immediate Assessment by: Glory Vuong MD Note: The above attending cytopathologist personally examined the Immediate Assessment slides and rendered the Immediate Assessment. Such assessments are preliminary; see Final Diagnosis and Discussion for final interpretation. 10/28/2023 11:54 AM [facility] Gross Description Received in formalin, approximately 45 mL total volume of cloudy, red fluid with clots. Total preparation: Diff-Quik slide(s): 4, Pap Stain slide(s): 4, and Cell Block: 1. 10/28/2023 11:54 AM [facility] LABORATORY Result Note THIS RESULT REQUIRES PHYSICIAN/CRYSTAL FOLLOW UP(A) 10/28/2023 11:54 AM [facility] Fine Needle Aspirate STRUCTURE OF HEAD OF PANCREAS / Unknown Non Blood Collection / Unknown 10/25/2023 3:19 PM EDT 10/25/2023 4:27 PM EDT Ros Gonzáles MD PATHOLOGY/CYTOLOGY O RDERAMARVEL Performing Organization Address [facility]/State/ZIP Co de Phone Number [facility] [place] [address] * ERCP (10/25/2023 2:24 PM EDT) ERCP [facility] Endoscopy Procedure Date: 10/25/2023 2:24 PM ? Patient Name: Benny Zurita ? Date of : 1940 ? Age: 83 ? Order #: [id number] ? Instrument Name: [id number] ? Procedure: ? ERCP Providers: ? Aaron Alvarado ? Mariah Olmos, ? Lead Data Entry Operator Referring MD: ?Andres Benitez MD Complications: ? No immediate complications. Procedure: ? Pre-Anesthesia Assessment: ? - Prior to the procedure, a History ? and Physical was performed, and ? patient medications and allergies ? were reviewed. The patient's ? tolerance of previous anesthesia ? was also reviewed. The risks and ? benefits of the procedure and the ? sedation options and risks were ? discussed with the patient. All ? questions were answered, and ? informed consent was obtained. ? Prior Anticoagulants: The patient ? has taken no anticoagulant or ? antiplatelet agents. ASA Grade ? Assessment: III - A patient with ? severe systemic disease. After ? reviewing the risks and benefits, ? the patient was deemed in ? satisfactory condition to undergo ? the procedure. ? The procedure, indications, ? benefits, risks and alternatives ? were explained to the patient. ? Specifically discussed were ? potential complications including, ? but not limited to, bleeding, ? perforation, infection, ? pancreatitis, missing a cancer, and ? adverse medication reactions.The ? Duodenoscope was introduced through ? the mouth, and advanced to the ? duodenum where it was used to ? inject contrast into and used to ? inject contrast into the bile duct. ? The ERCP was accomplished without ? difficulty. The patient tolerated ? the procedure well. ? Findings: ? - Duodenoscope advanced to D2 ? - The papilla is normal ? - The PD is wire cannulated to the head only once ? - The bile duct is then selectively and deeply ? cannulated with the clever cut cannulotome ? - A sphincterotomy is performed without bleeding. ? There was resistance advancing the sphincterotome ? over the biliary orifice, this was dilated to 4mm ? with good effect ? - Cholangiogram confirms biliary ductal dilation with ? 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 - A 10mm x 60mm fully covered Wallflex was advanced ? and deployed under fluoroscopic and endoscopic ? visualization. This was in good position with good ? biliary drainage at completion of the case ? Moderate Sedation: ? 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 of 10mm x 60mm FCSEMS Recommendation: ?- Await final pathology ? - OK for clear liquids tonight if ? no pain /nausea, ADAT tomorrow ? - Trend LFTs ? Attending Participation: ? I was present and participated during the entire ? procedure, including non-buckley portions. ? Andrew Reynoso M.D. _ Andrew Reynoso, 10/25/2023 4:32:04 PM This report has been signed electronically. Number of Addenda: 0 Note Initiated On: 10/25/2023 2:24 PM [facility] 10/25/2023 2:24 PM EDT Andres Benitez MD GENERAL SURGICAL ORD ERABLES [facility] * UPPER EUS-ENDOSCOPIC ULTRASOUND (10/25/2023 2:23 PM EDT) UPPER ENDOSCOPIC ULTRASOUND [facility] Endoscopy Procedure Date: 10/25/2023 2:23 PM ? Patient Name: Benny Zurita ? Date of : 1940 ? Age: 83 ? Order #: [id number] ? Instrument Name: [id number]- [id number] ? Procedure: ? Upper EUS Patient Profile: ? 83m with suspected malignant ? biliary obstruction Providers: ? Andrew Reynoso, Aaron Schmitt ? Mariah Olmos, ? Lead Data Entry Operator Referring MD: ? Medicines: ? See the Anesthesia note for ? documentation of the administered ? medications Complications: ? No immediate complications. Procedure: ? Pre-Anesthesia Assessment: ? - Prior to the procedure, a History ? and Physical was performed, and ? patient medications and allergies ? were reviewed. The patient's ? tolerance of previous anesthesia ? was also reviewed. The risks and ? benefits of the procedure and the ? sedation options and risks were ? discussed with the patient. All ? questions were answered, and ? informed consent was obtained. ? Prior Anticoagulants: The patient ? has taken no anticoagulant or ? antiplatelet agents. ASA Grade ? Assessment: III - A patient with ? severe systemic disease. After ? reviewing the risks and benefits, ? the patient was deemed in ? satisfactory condition to undergo ? the procedure. ? The procedure, indications, ? benefits, risks and alternatives ? were explained to the patient. ? Specifically discussed were ? potential complications including, ? but not limited to, bleeding, ? perforation, infection, missing a ? cancer, and adverse medication ? reactions.The Endoscope was ? introduced through the mouth, and ? advanced to the second part of ? duodenum. The Endoscope was ? introduced through the mouth, and ? advanced to the second part of ? duodenum. ? Findings: ? - EGD is normal ? - The echoendoscope is advanced to D1 ? - There is evidence of a well marginated 14mm ? hypoechoic mass obstructing the bile duct and the ? pancreatic duct. This mass is in close proximity to ? the portovenous confluence without invasion ? - Using a 22G [employer] needle with stylet through ? Duodenum, FNB performed x 5. On site pathology with ? findings of clusters of atypical cells but amount ? non-diagnostic ? - There was some self-limited oozing bleeding after ? FNB ? Moderate Sedation: ? Not applicable - See Anesthesia documentation Impression: ?1.4cm mass in HOP with obstruction ? of bile duct, highly suspicious for ? malignancy ? - EUS with FNB, final path pending Recommendation: ?- Await pathology ? - Proceed with ERCP ? Attending Participation: ? I was present and participated during the entire ? procedure, including non-buckley portions. ? Andrew Reynoso M.D. __ Andrew Reynoso, 10/25/2023 4:27:48 PM This report has been signed electronically. Number of Addenda: 0 Note Initiated On: 10/25/2023 2:23 PM [facility] 10/25/2023 2:23 PM EDT Unknown GENERAL SURGICAL ORD ERABLES [facility]ATION * (ABNORMAL) Basic Metabolic Panel (10/24/2023 4:17 PM EDT) Only the most recent of2 resultswithin the time period is included. Glucose 147 65 - 199 mg/dL 10/24/2023 4:[address] [facility] Comment:Glucose Concentratio n >=200 mg/dL plus symptoms is consistent with Diabetes Mellitus. Blood Urea Nitrogen 17 10 - 20 mg/dL 10/24/2023 4:[address] [facility] Creatinine 0.68(L) 0.80 - 1.50 mg/dL 10/24/2023 4:[address] [facility] Sodium 131(L) 135 - 145 mMol/L 10/24/2023 4:[address] [facility] Potassium 3.5 3.5 - 5.0 mMol/L 10/24/2023 4:[address] [facility] Chloride 94(L) 98 - 107 mMol/L 10/24/2023 4:[address] [facility] Carbon Dioxide 26 22 - 31 mMol/L 10/24/2023 4:[address] [facility] Anion Gap 11 5 - 15 mMol/L 10/24/2023 4:[address] [facility] Calcium 9.0 8.5 - 10.5 mg/dL 10/24/2023 4:[address] [facility] Est Glomerular Filtration Rate - Male 93 mL/min/1. 73 m?? 10/24/2023 4:[address] [facility] Comment: This patient's estimated GFR [...] eGFR. Link: eGFR Calculator [employer] Blood VENOUS BLOOD SPECIMEN / Unknown IP Care Team Draw / Unknown 10/24/2023 4:17 PM EDT 10/24/2023 4:21 PM EDT Rj Rizvi MD CHEMISTRY ORDERABLES [facility] [place] [address] * CT Chest w Contrast (10/24/2023 1:41 PM EDT) WORKSTATION ID [id number] RAD Anatomical Region Laterality Modality Chest Computed Tomogra phy Impressions 10/24/2023 5:21 PM EDT No metastatic disease in the chest. Thank you for letting us participate in the care of this patient. ??If you are a health care provider and have any questions regarding this report, please contact the number below. ??For patients who have questions please contact the health acute care registered nurse that requested your imaging first. ? Narrative 10/24/2023 5:21 PM EDT EXAMINATION: CT CHEST W CONTRAST CLINICAL HISTORY: eval for metastases (recently discovered pancreatic mass highly concerning for primary pancreatic ca) TECHNIQUE: Helical CT of the chest after the intravenous administration of contrast, 120 cc Omnipaque 350 intravenous contrast. Thin-section reconstructions as well as coronal and sagittal reformatted images were generated. COMPARISON: None FINDINGS: Pulmonary parenchyma: No mass. No nodule. Bibasilar atelectasis versus scar Airways: No central endobronchial abnormality. Pleura: No effusion. Lymph nodes: No enlarged lymphadenopathy. Heart and vasculature: Normal size of the heart. No significant pericardial effusion. Normal caliber of the thoracic aorta. No pulmonary artery filling defect. Other mediastinal structures: No significant findings. Upper abdomen: See report of CT abdomen pelvis October 23, 2023. No muscular asymmetry about the chest wall. Skeletal structures: No suspicious lytic expansile nor sclerotic osseous lesion Procedure Note Mariam Johnson MD - 10/24/2023 EXAMINATION: CT CHEST W CONTRAST CLINICAL HISTORY: eval for metastases (recently discovered pancreaticmass highly concerning for primary pancreatic ca) TECHNIQUE: Helical CT of the chest after the intravenous administrationof contrast, 120 cc Omnipaque 350 intravenous contrast. Thin-section reconstructions as well as coronal and sagittal reformatted images were generated. COMPARISON: None FINDINGS: Pulmonary parenchyma: No mass. No nodule. Bibasilar atelectasis versusscar Airways: No central endobronchial abnormality. Pleura: No effusion. Lymph nodes: No enlarged lymphadenopathy. Heart and vasculature: Normal size of the heart. No significantpericardial effusion. Normal caliber of the thoracic aorta. No pulmonary arteryfilling defect. Other mediastinal structures: No significant findings. Upper abdomen: See report of CT abdomen pelvis October 23, 2023. No muscular asymmetry about the chest wall. Skeletal structures: No suspicious lytic expansile nor sclerotic osseouslesion IMPRESSION No metastatic disease in the chest. Thank you for letting us participate in the care of this patient. If youare a health care provider and have any questions regarding this report,please contact the number below. For patients who have questions please contactthe health acute care registered nurse that requested your imaging first. Electronically signed by: Mariam Johnson MD, [facility]([phone]), at 10/24/2023 5:21 PM Rj Rizvi MD IM CT ORDERABLES * ABORH RECHECK (10/23/2023 1:24 PM EDT) AB[facility]H Recheck O POSITIVE 10/23/2023 2:12 PM EDT [facility] Blood VENOUS BLOOD SPECIMEN / Unknown IP Care Team Draw / Unknown 10/23/2023 1:24 PM EDT 10/23/2023 1:29 PM EDT Leia Rincon MD BLOOD BANK LAB ORDER RICHELLE [facility] [place] [place] [address] * CT Abdomen & Pelvis w Contrast (10/23/2023 1:10 PM EDT) WORKSTATION ID [id number] RAD Anatomical Region Laterality Modality Abdomen, Pelvis Computed Tomogra phy Impressions 10/23/2023 1:26 PM EDT 1. ??Hypodense pancreatic head mass concerning for pancreatic neoplasm, causing marked obstruction intrahepatic and extrahepatic biliary dilatation as well as main pancreatic duct dilatation. ?? 2. ??No evidence of metastatic disease in abdomen or pelvis or lymphadenopathy 3. ??See above for other ancillary findings Thank you for letting us participate in the care of this patient. ??If you are a health care provider and have any questions regarding this report, please contact the number below. ??For patients who have questions please contact the health acute care registered nurse that requested your imaging first. ? Electronically signed by: Davy Sinclair MD, [facility] ([phone]), at 10/23/2023 1:26 PM Narrative 10/23/2023 1:26 PM EDT EXAMINATION: CT ABDOMEN AND PELVIS W CONTRAST CLINICAL HISTORY: concern for obstructive jaundice, hx of pancreatic mass TECHNIQUE: Helical CT of the abdomen and pelvis following the intravenous administration of contrast. 109 mL of intravenous Omnipaque contrast. Oral contrast was not administered. COMPARISON: Ultrasound abdomen 10/21/2023. FINDINGS: Lower chest: Normal. Liver: Normal size and attenuation without lesions. Bile ducts: There is diffuse intrahepatic and extra hepatic biliary dilatation. The CBD is dilated, measuring up to Gallbladder: No calcified gallstones. ??Massive distended gallbladder, measuring up to 12 cm Pancreas: There is a pancreatic hypodense mass in the pancreatic head, measuring 1.2 x 1.3 x 1.4 cm AP x TV x CC (series 3 image 56). ??The main pancreatic duct is dilated measuring up to 7 cm with an abrupt transition point at this pancreas mass. There is also marked intrahepatic and extrahepatic ductal dilatation. ??The CBD is markedly dilated measuring up to 1.6 cm in caliber. The pancreatic mass focally abuts the right lateral margin of the superior SMV and the main portal vein (series 3 image 52). ??The mass does not involve the celiac trunk or SMA. Spleen: Normal. Adrenals: Normal. Kidneys: Normal. Urinary Bladder: Normal. Vasculature: No abdominal aortic aneurysm. ??This calcific atherosclerosis of the aorta and iliac arteries. Lymph Nodes: No enlarged lymph nodes. Bowel: Nondilated, no wall thickening. ?Colonic diverticulosis. ??The appendix is not discretely visualized. ??No acute inflammatory changes in the right lower quadrant. Peritoneum and retroperitoneum: No free fluid or loculated fluid collection. No pneumoperitoneum. No mesenteric inflammation. Abdominal wall: Normal. Reproductive organs: Normal. Osseous structures: No suspicious lesions. ??No acute osseous finding. Degenerative changes of the thoracolumbar spine. ??Bilateral L3 pars defect with a grade 1 anterolisthesis L3 on L4. ??Multilevel facet arthropathy. Procedure Note Davy Sinclair MD - 10/23/2023 EXAMINATION: CT ABDOMEN AND PELVIS W CONTRAST CLINICAL HISTORY: concern for obstructive jaundice, hx of pancreaticmass TECHNIQUE: Helical CT of the abdomen and pelvis following theintravenous administration of contrast. 109 mL of intravenous Omnipaque contrast.Oral contrast was not administered. COMPARISON: Ultrasound abdomen 10/21/2023. FINDINGS: Lower chest: Normal. Liver: Normal size and attenuation without lesions. Bile ducts: There is diffuse intrahepatic and extra hepatic biliarydilatation. The CBD is dilated, measuring up to Gallbladder: No calcified gallstones. Massive distended gallbladder,measuring up to 12 cm Pancreas: There is a pancreatic hypodense mass in the pancreatic head, measuring 1.2x 1.3 x 1.4 cm AP x TV x CC (series 3 image 56). The main pancreatic duct isdilated measuring up to 7 cm with an abrupt transition point at this pancreasmass. There is also marked intrahepatic and extrahepatic ductal dilatation. TheCBD is markedly dilated measuring up to 1.6 cm in caliber. The pancreatic mass focally abuts the right lateral margin of the superiorSMV and the main portal vein (series 3 image 52). The mass does not involvethe celiac trunk or SMA. Spleen: Normal. Adrenals: Normal. Kidneys: Normal. Urinary Bladder: Normal. Vasculature: No abdominal aortic aneurysm. This calcific atherosclerosisof the aorta and iliac arteries. Lymph Nodes: No enlarged lymph nodes. Bowel: Nondilated, no wall thickening. Colonic diverticulosis. Theappendix is not discretely visualized. No acute inflammatory changes in the rightlower quadrant. Peritoneum and retroperitoneum: No free fluid or loculated fluidcollection. No pneumoperitoneum. No mesenteric inflammation. Abdominal wall: Normal. Reproductive organs: Normal. Osseous structures: No suspicious lesions. No acute osseous finding. Degenerative changes of the thoracolumbar spine. Bilateral L3 pars defectwith a grade 1 anterolisthesis L3 on L4. Multilevel facet arthropathy. IMPRESSION 1. Hypodense pancreatic head mass concerning for pancreatic neoplasm,causing marked obstruction intrahepatic and extrahepatic biliary dilatation aswell as main pancreatic duct dilatation. 2. No evidence of metastatic disease in abdomen or pelvis orlymphadenopathy 3. See above for other ancillary findings Thank you for letting us participate in the care of this patient. If youare a health care provider and have any questions regarding this report,please contact the number below. For patients who have questions please contactthe health acute care registered nurse that requested your imaging first. Electronically signed by: Davy Sinclair MD, [facility]([phone]), at 10/23/2023 1:26 PM Leia Rincon MD [facility] CT ORDERABLES * Type and screen ([facility]) (10/23/2023 12:32 PM EDT) Pathologist [facility] ABORH Type O POSITIVE 10/23/2023 1:31 PM EDT [facility] PATIENT HISTORY Not Found 10/23/2023 1:31 PM EDT [facility] Expires at [id number] on: 10-26-2023 10/23/2023 1:31 PM EDT [facility] ANTIBODY SCREEN AUTOMATED Negative 10/23/2023 1:31 PM EDT [facility] T&S only valid at [facility] 10/23/2023 1:31 PM EDT [facility] Blood VENOUS BLOOD SPECIMEN / Unknown Venipuncture / Unknown 10/23/2023 12:32 PM EDT 10/23/2023 12:37 PM EDT Narrative [facility] - 10/23/2023 1:31 PM EDT This Type and Screen result is only valid at the [facility] Leia Rincon MD BLOOD BANK LAB ORDER RICHELLE [facility] [place] [place] [address] * Lipase (10/23/2023 12:32 PM EDT) [facility] Lipase 49 0 - 60 unit/L 10/23/2023 1:[address] [facility] Blood VENOUS BLOOD SPECIMEN / Unknown Venipuncture / Unknown 10/23/2023 12:32 PM EDT 10/23/2023 12:41 PM EDT Leia Rincon MD CHEMISTRY ORDERABLES [facility] [place] [address] * US Abdomen Limited (10/21/2023 9:40 AM EDT) Pathologist [facility] PT CLASS O RAD ADMITDTTM [id number] RAD PT RAD INFO [id number]^Genere aux^Jez^H RAD EXAM DESC UABDLIM^US Abdomen Limited^RIS RAD WORKSTATION ID [id number] RAD Anatomical Region Laterality Modality Abdomen Ultrasound 10/21/2023 9:40 AM EDT Impressions 10/21/2023 11:12 AM EDT 1. ??Liver steatosis. 2. ??Biliary ductal dilatation and a hydropic gallbladder. Please correlate with LFTs. 3. ??An oblong hypoechoic focus within the head of the pancreas, concerning for a mass lesion. 4. ??Recommend further characterization of the above described abnormalities with MRI of the abdomen with and without contrast according to the pancreatic mass protocol, and an MRCP. Thank you for letting us participate in the care of this patient. ??If you are a health care provider and have any questions regarding this report, please contact the number below. ??For patients who have questions please contact the health acute care registered nurse that requested your imaging first. ? Electronically signed by: Milton Klein MD, [facility] ([phone]), at 10/21/2023 11:12 AM Narrative 10/21/2023 11:12 AM EDT EXAMINATION: US Abdomen Limited CLINICAL HISTORY: Abdominal discomfort TECHNIQUE: Ultrasound of the abdomen was performed. COMPARISON: None FINDINGS: Liver is not enlarged at 15.3 cm craniocaudally and demonstrates diffusely increased echogenicity ??without mass. Portal vein is patent with hepatopetal flow. Gallbladder is diffusely dilated, measures 5.3 cm in diameter and 11 cm in length. No pericholecystic fluid, gallbladder wall thickening or stones. sonographic Kim's sign. Common bile duct measures 13mm, tapers down to 8 mm at the level of the pancreatic head. An oblong hypoechoic focus projects in the head of the pancreas, measures approximately 2 cm in greatest dimension Pancreatic tail is obscured by overlying bowel gas. The right kidney is unremarkable without hydronephrosis and measures 12.8cm. Procedure Note Milton Klein MD - 10/21/2023 EXAMINATION: US Abdomen Limited CLINICAL HISTORY: Abdominal discomfort TECHNIQUE: Ultrasound of the abdomen was performed. COMPARISON: None FINDINGS: Liver is not enlarged at 15.3 cm craniocaudally anddemonstrates diffusely increased echogenicity without mass. Portal vein is patentwith hepatopetal flow. Gallbladder is diffusely dilated, measures 5.3 cm indiameter and 11 cm in length. No pericholecystic fluid, gallbladder wall thickeningor stones. sonographic Kim's sign. Common bile duct measures 13mm, tapersdown to 8 mm at the level of the pancreatic head. An oblong hypoechoic focusprojects in the head of the pancreas, measures approximately 2 cm in greatestdimension Pancreatic tail is obscured by overlying bowel gas. The right kidney is unremarkable without hydronephrosis and measures 12.8cm. IMPRESSION 1. Liver steatosis. 2. Biliary ductal dilatation and a hydropic gallbladder. Please correlatewith LFTs. 3. An oblong hypoechoic focus within the head of the pancreas, concerningfor a mass lesion. 4. Recommend further characterization of the above describedabnormalities with MRI of the abdomen with and without contrast according to the pancreaticmass protocol, and an MRCP. Thank you for letting us participate in the care of this patient. If youare a health care provider and have any questions regarding this report,please contact the number below. For patients who have questions please contactthe health acute care registered nurse that requested your imaging first. Electronically signed by: Milton Klein MD, [facility]([phone]), at 10/21/2023 11:12 AM Jez Vance MD [facility] US GEN ORDERA BLES * Scan Doc: Diagnostic Radiology (09/07/2023 12:00 AM EDT) Anatomical Region Laterality Modality Other Narrative 09/07/2023 12:00 AM EDT Ordered by an unspecified provider. Scanning Provider MEDIA MGR SCAN EXT O RDR/RSLT from Last 3 Months Advance Directives Documents on File Type Date Recorded Patient Equip Maint Eng Expl anation Advance Directives and Antonio gamboa Will 11/09/2023 9:44 AM * Attempt Cardiopulmonary Resuscitation - Inpatient (Latest Code Status on File) Date Activated Date Inactivated Comments 10/23/2023 6:21 PM 10/27/2023 5:22 PM Question Answer Comments Code Status decision made by: Patient Content of discussion: desires resus Care Teams Manager Zone Relationship Specialty Start Date End Date Jez Vance MD [address] [place] [address] PCP - General 01/07/10
--- OUTSIDE RECORDS SUMMARY | 2023-11-21 00:07 | XMS_ITS | Encounter Summary ---
Author Organization [facility] Address [facility] [place] [address] Care Team Providers Care Fur Mixer Name Role Phone Jez Vance MD Primary Care Provider [phone] Reason for Visit * Consultation (Routine) - Closed Specialty Diagnoses / Procedures Referred By Deena yao Referred To Contact Hematology and Oncology Diagnoses Pancreatic mass Painless jaundice Malignant neoplasm of prostate Ros Gonzáles MD [facility] [place] [address] [facility] [address] [place] [address] Referral ID Status Reason Start Date Expiration Date V isits Requested Visits Authorized [id number] Closed Consult, Test & Treat 10/26/2023 10/25/2024 1 1 Encounter Details Date Type Department Care Team (Latest Contact Info) Description 11/09/2023 11:00 AM EDT Office Visit [place] [address] Antonio Bowie MD [facility] [place] [address] Malignant neoplasm of head of pancreas; Exocrine pancreatic insufficiency Social History Tobacco Use Types Packs/Day Years [...] from your doctor or pharmacy? Never 11/04/2023 [facility] Utilities Answer Date Recorded In the past [...] place to sleep or slept in a group home (including now)? No 08/06/2022 Housing Stability [...] any time in the past 12 [facility], were you homeless or living in a group home (including now)? No 11/04/2023 DH IPV [...] as of this encounter Progress Notes * Antonio Bowie MD - 11/09/2023 11:00 AM EDT Subjective Patient ID: Benny Zurita is 83 y.o. Problem List: Pancreatic adenocarcinoma, clinical stage A. Presented with one month of jaundice, fatigue, nausea, pruritus. Abd US 10/21/23 - IMPRESSION 1. Liver steatosis. 2. Biliary ductal dilatation and a hydropic gallbladder. Please correlate with LFTs. 3. An oblong hypoechoic focus within the head of the pancreas, concerning for a mass lesion. 4. Recommend further characterization of the above described abnormalities with MRI of the abdomen with and without contrast according to the pancreatic mass protocol, and an MRCP. B. CT a/p 10/23/23 - IMPRESSION 1. Hypodense pancreatic head mass concerning for pancreatic neoplasm, causing marked obstruction intrahepatic and extrahepatic biliary dilatation as well as main pancreatic duct dilatation. 2. No evidence of metastatic disease in abdomen or pelvis or lymphadenopathy (The pancreatic mass focally abuts the right lateral margin of the superior SMV and the main portalvein (series 3 image 52). The mass does not involve the celiac trunk or SMA). CT chest 10/24/23 - IMPRESSION No metastatic disease in the chest. C. Upper EUS 10/25/23 - Impression: - 1.4cm mass in HOP with obstruction of bile duct, highly suspicious for malignancy - EUS with FNB, final path pending Cytology - Adenocarcinoma. Immunostains for MLH-1, MSH-2, MSH-6, and PMS-2 reveal intact nuclear staining in tumor cells. ERCP - Impression: - Malignant distal biliary stricture s/p ERCP with placement of 10mm x 60mm FCSEMS D. [facility] 11/09/23, images reviewed. There is no evidence of metastatic disease. The pancreatic mass focally abuts the right lateral margin of the superior SMV and the main portal vein. The mass does not involve the celiac trunk or SMA. The primary tumor is considered resectable. Recommendation - diagnostic laparoscopy. If no evidence of metastatic disease, consider neoadjuvantsystemic therapy with decisions about radiation to be made based on the results of restaging evaluation. 2. Prostate cancer Diagnosed in 06/2022 High-risk prostate cancer (Stage IIC: cT1c, cN0, cM0; Oto 4+4, PSA 11.9 S/p radiation, completed in 11/2023 Concurrent ADT 3. HTN 4. HLD 5. Asthma 6. MHA's HPI Benny Zurita is referred for evaluation and management of pancreatic cancer. The history is summarized above. Benny is accompanied to clinic today by his Angela. He is feeling pretty well, better since the stent placement. His appetite is good. He has lost about 15# overall. He has some gassiness and burping. His urine color has lightened and the stool color is darker. No pain. He is pretty active buttires easily. 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 Constitutional: General: He is not in acute distress. HENT: Head: Normocephalic and atraumatic. Mouth/Throat: Pharynx: Oropharynx is clear. No oropharyngeal exudate. Eyes: General: No scleral icterus. Cardiovascular: Rate and Rhythm: Normal rate and regular rhythm. Pulmonary: Effort: Pulmonary effort is normal. No respiratory distress. Breath sounds: No wheezing or rales. Abdominal: General: There is no distension. Palpations: There is no mass. Tenderness: There is no abdominal tenderness. There is no guarding. Musculoskeletal: General: No swelling. Lymphadenopathy: Cervical: No cervical adenopathy. Upper Body: Right upper body: No supraclavicular adenopathy. Left upper body: No supraclavicular adenopathy. Skin: General: Skin is warm and dry. Findings: No rash. Neurological: General: No focal deficit present. Mental Status: He is alert. Coordination: Coordination normal. Recent Results (from the past 24 hour(s)) CBC (with Diff) Result Value Ref Range White Blood Cell 7.04 4.00 - 9.50 x10(3)/mcL Red Blood Cell 3.81 (L) 4.58 - 5.54 x10(6)/mcL Hemoglobin 12.5 (L) 13.7 - 16.5 g/dL Hematocrit 36.5 (L) 40.5 - 48.5 % Mean Cell Volume 95.8 (H) 82.9 - 93.1 fL Mean Cell Hemoglobin 32.8 (H) 27.5 - 32.1 pg Mean Cell Hemoglobin Concentration 34.2 32.0 - 35.7 g/dL Platelet 256 145 - 357 x10(3)/mcL Mean Platelet Volume 10.7 7.6 - 12.9 fL RDW Standard Deviation 44.8 36.0 - 45.0 fL RDW coefficient of variation 12.8 11.4 - 13.8 % NRBC% auto 0.0 % NRBC Absolute <0.01 <0.01 x10(3)/mcL Neutrophil % 74.7 % Neutrophil Absolute (ANC) - Automated 5.26 1.70 - 6.10 x10(3)/mcL Lymph % 14.9 % Lymph Absolute 1.05 0.90 - 3.20 x10(3)/mcL Monocyte % 7.5 % Monocyte Absolute 0.53 0.30 - 0.90 x10(3)/mcL Eos % 2.0 % Eos Absolute 0.14 0.00 - 0.40 x10(3)/mcL Basophil % 0.6 % Baso Absolute 0.04 0.00 - 0.10 x10(3)/mcL Immature Gran % 0.3 % Immature Gran Absolute <0.04 0.00 - 0.04 x10(3)/mcL Comprehensive metabolic panel Non-fasting Result Value Ref Range Glucose 115 65 - 199 mg/dL Blood Urea Nitrogen 15 10 - 20 mg/dL Creatinine 0.68 (L) 0.80 - 1.50 mg/dL Sodium 138 135 - 145 mMol/L Potassium 4.0 3.5 - 5.0 mMol/L Chloride 102 98 - 107 mMol/L Carbon Dioxide 24 22 - 31 mMol/L Anion Gap 12 5 - 15 mMol/L Calcium 8.9 8.5 - 10.5 mg/dL Protein, Total 6.6 6.1 - 8.0 g/dL Albumin 4.2 3.2 - 5.2 g/dL Aspartate Aminotransferase 21 <=39 unit/L Alanine Aminotransferase 50 0 - 55 unit/L Alkaline Phosphatase 159 (H) 40 - 130 unit/L Bilirubin, Total 0.9 <=1.3 mg/dL Est Glomerular Filtration Rate - Male 93 mL/min/1.73 m?? Fasting Status No Carbohydrate Antigen 19-9 Result Value Ref Range CA 19-9 110.0 (H) <=35.0 units/mL Assessment and Plan Benny Zurita is 83 yo, with a PMHx of Prostate cancer (treated with RT and ADT), HTN, HLD and asthma, seen for evaluation and management of pancreatic adenocarcinoma. He presented in early 10/2023 with about a one month h/o jaundice, fatigue, nausea, pruritus. An US was done which showed biliary ductal dilation and a hypoechoic focus within the head of the pancreas, concerning for a mass lesion. A CT was done on 10/23/23 and confirmed the finding of a hypodense pancreatic head mass concerning for pancreatic neoplasm, with marked intrahepatic and extrahepatic biliary dilatation and main pancreatic duct dilatation. There was no evidence of metastatic disease on the CT a/p or CT chest. On 10/25/23 an Upper EUS was performed. This showed a 1.4 cm mass in the head of the pancreas. FNA was performed and cytology shows adenocarcinoma, pMMR. An ERCP with stent placement was performed the same day. His case was discussed at [facility] today, 11/09/23, images reviewed. There is no evidence of distant metastatic disease. The pancreatic mass focally abuts the right lateral margin of the superior SMV and the main portal vein. The primary tumor is considered resectable. The recommendation was fordiagnostic laparoscopy. Assuming no evidence of metastatic, would proceed with neoadjuvant therapy x 4 months (with restaging CT scan after 2 and 4 cycles), followed by consideration of radiation depending onthe imaging results and consideration of surgery (assuming no evidence of disease progression/metastatic disease). Depending on how well he recovers from surgery, would plan to try to give an additional two cycles of chemotherapy post-op. We talked about systemic therapy options, including mFolfirinox and gemcitabine/abraxane. For patients with good PS, our preference is generally for mFolfirinox. Our thought here is for mFolfirinox but considering his age, I would plan for upfront dose reduction. We reviewed the schedule of therapy with mFolfirinox (irinotecan, oxaliplatin and leucovorin are given day 1 followed by a 48 hour infusion of 5FU with cycles repeated every two weeks; irinotecan dose is 150 mg/m2 and there is no bolus 5FU on day 1). The potential side effects of therapy were discussed, including alopecia, nausea, vomiting, diarrhea, abdominal pain, dehydration, fatigue, myelosuppression with associated risks of bleeding, infection and dose delays, peripheral neuropathy which may be exacerbated by cold exposure but which may be cumulative and permanent even in the absence of cold, angina/UT, hypersensitivity reactions and others. He was given an informational handout regarding mFolfirinox. Blood will be drawn today for PGX to be sure he doesn't have variant in DPYD or UGT1A1 that would put him at high risk of severe fluoropyrimidine or irinotecan related toxicity. This will need to be reviewed prior to beginning therapy. The diagnostic laparoscopy is scheduled for 11/12/23. I will try to schedule [place]. He is scheduled to meet with our genetic counselor and Clinical Reed Fixer, Estrella Tompkins today. Consueloll plan to start creon, 2 with meals, 1 with snacks. He also saw our Genetics Counselor, Rainer Matthews, and blood will be drawn today for genetic testing. documented in this encounter Miscellaneous Notes * Addendum Note - Antonio Bowie MD - 11/09/2023 11:00 AM EDTAddended by: ANTONIO BOWIE on: 11/09/2023 03:45 PM Modules accepted: Orders documented in this encounter Plan of Treatment Upcoming Encounters Date Type Department Care Team (Late st Contact Info) Description 11/30/2023 9:45 AM EDT TH Visit (TeleHealth) Radiation Oncology at [address] [phone] Adrienne Singh PA [facility] [address] HEMATOLOGY [place] [address] 11/30/2023 10:30 AM EDT Infusion Hematology Oncology at [address] [id number] Scheduled Orders Name Type Priority Associated Diagnoses Orde r Schedule CBC (with Diff) Lab Routine Malignant neoplasm of head of pancreas Every 2 Weeks for 12 Occurrences starting 11/09/2023 until 11/08/2024 Comprehensive metabolic panel Non-fasting Lab Routine Malignant neoplasm of head of pancreas Every 2 Weeks for 12 Occurrences starting 11/09/2023 until 11/08/2024 Carbohydrate Antigen 19-9 Lab Routine Malignant neoplasm of head of pancreas Every 2 Weeks for 12 Occurrences starting 11/09/2023 until 11/08/2024 documented as of this encounter Results * (ABNORMAL) PGx Oncology (11/09/2023 12:35 PM EDT) NGS Report Status Abnormal(A ) 11/17/2023 9:14 AM EDT [facility] Blood VENOUS BLOOD SPECIMEN / Unknown Venipuncture / Unknown 11/09/2023 12:35 PM EDT 11/09/2023 12:36 PM EDT Antonio Bowie MD MOLECULAR ORDERABLES [facility] [place] [address] * (ABNORMAL) Carbohydrate Antigen 19-9 (11/09/2023 12:35 PM EDT) CA 19-9 110.0(H) <=35.0 units/mL 11/09/2023 1:35 PM EDT [facility] Comment:This result was gene rated using a Doreen Danis immunoassay. Results obtained from other methods or manufacturers cannot be used interchangeably with this method. Blood VENOUS BLOOD SPECIMEN / Unknown Venipuncture / Unknown 11/09/2023 12:35 PM EDT 11/09/2023 12:36 PM EDT Antonio Bowie MD CHEMISTRY ORDERABLES [facility] [place] [address] * (ABNORMAL) Comprehensive metabolic panel Non-fasting (11/09/2023 12:35 PM EDT) Glucose 115 65 - 199 mg/dL 11/09/2023 1:29 PM EDT [facility] Comment:Glucose Concentratio n >=200 mg/dL plus symptoms is consistent with Diabetes Mellitus. Blood Urea Nitrogen 15 10 - 20 mg/dL 11/09/2023 1:29 PM EDT [facility] Creatinine 0.68(L) 0.80 - 1.50 mg/dL 11/09/2023 1:29 PM EDT [facility] Sodium 138 135 - 145 mMol/L 11/09/2023 1:29 PM EDT [facility] Potassium 4.0 3.5 - 5.0 mMol/L 11/09/2023 1:29 PM EDT [facility] Chloride 102 98 - 107 mMol/L 11/09/2023 1:29 PM EDT [facility] Carbon Dioxide 24 22 - 31 mMol/L 11/09/2023 1:29 PM EDT [facility] Anion Gap 12 5 - 15 mMol/L 11/09/2023 1:29 PM EDT [facility] Calcium 8.9 8.5 - 10.5 mg/dL 11/09/2023 1:29 PM EDT [facility] Protein, Total 6.6 6.1 - 8.0 g/dL 11/09/2023 1:29 PM EDT [facility] Albumin 4.2 3.2 - 5.2 g/dL 11/09/2023 1:29 PM EDT [facility] Aspartate Aminotransferase 21 <=39 unit/L 11/09/2023 1:29 PM EDT [facility] Alanine Aminotransferase 50 0 - 55 unit/L 11/09/2023 1:29 PM EDT [facility] Alkaline Phosphatase 159(H) 40 - 130 unit/L 11/09/2023 1:29 PM EDT [facility] Bilirubin, Total 0.9 <=1.3 mg/dL 11/09/2023 1:29 PM EDT [facility] Est Glomerular Filtration Rate - Male 93 mL/min/1. 73 m?? 11/09/2023 1:29 PM EDT [facility] Comment: This patient's estimated GFR [...] Fasting Status No 11/09/2023 1:29 PM EDT [facility] Blood VENOUS BLOOD SPECIMEN / Unknown Venipuncture / Unknown 11/09/2023 12:35 PM EDT 11/09/2023 12:36 PM EDT Antonio Bowie MD CHEMISTRY ORDERABLES Performing Organization Address City/State/[facility] Co de Phone Number [facility] [place] [address] * (ABNORMAL) CBC (with Diff) (11/09/2023 12:35 PM EDT) White Blood Cell 7.04 4.00 - 9.50 x10(3)/mc L 11/09/2023 1:00 PM EDT [facility] Red Blood Cell 3.81(L) 4.58 - 5.54 x10(6)/mc L 11/09/2023 1:00 PM EDT [facility] Hemoglobin 12.5(L) 13.7 - 16.5 g/dL 11/09/2023 1:00 PM [facility] Hematocrit 36.5(L) 40.5 - 48.5 % 11/09/2023 1:00 PM [facility] Mean Cell Volume 95.8(H) 82.9 - 93.1 fL 11/09/2023 1:00 PM [facility] Mean Cell Hemoglobin 32.8(H) 27.5 - 32.1 pg 11/09/2023 1:00 PM [facility] Mean Cell Hemoglobin Concentration 34.2 [...] 3.20 x10(3)/mc L 11/09/2023 1:00 PM EDT [facility] Monocyte % 7.5 % 11/09/2023 1:00 PM EDT [facility] Monocyte Absolute 0.53 0.30 - 0.90 x10(3)/mc L 11/09/2023 1:00 PM EDT [facility] Eos % 2.0 % 11/09/2023 1:00 PM EDT [facility] Eos Absolute 0.14 0.00 - 0.40 x10(3)/mc L 11/09/2023 1:00 PM EDT [facility] Basophil % 0.6 % 11/09/2023 1:00 PM EDT [facility] Baso Absolute 0.04 0.00 - 0.10 x10(3)/mc L 11/09/2023 1:00 PM EDT [facility] Immature Gran % 0.3 % 1:00 PM EDT [facility] Immature Gran Absolute <0.04 0.00 - 0.04 x10(3)/mc L 11/09/2023 1:00 PM EDT [facility] Blood VENOUS BLOOD SPECIMEN / Unknown Venipuncture / Unknown 11/09/2023 12:35 PM EDT 11/09/2023 12:36 PM EDT Antonio Bowie MD HEMATOLOGY ORDERABLE S [facility] [place] [address] documented in this encounter Visit Diagnoses Diagnosis Malignant neoplasm of head of pancreas Exocrine pancreatic insufficiency Other specified disease of pancreas Malignant neoplasm of prostate- Primary Androgen deprivation therapy Encounter for therapeutic drug monitoring S/P radiotherapy Convalescence following radiotherapy documented in this encounter Care Teams Fur Mixer Relationship Specialty Start Date End Date Jez Vance MD [address] [place] [address] PCP - General 01/07/10 documented as of this encounter
--- OUTSIDE RECORDS SUMMARY | 2023-11-21 00:07 | XMS_ITS | Encounter Summary ---
Author Organization [facility] Address [facility] [place] [address] Care Team Providers Care Can Technician Name Role Phone Jez Vance MD Primary Care Provider [phone] Encounter Details Date Type Department Care Team (Latest Contact Info) Description 11/18/2023 Travel Social History Tobacco Use Types Packs/Day [...] from your doctor or pharmacy? Never 11/04/2023 [facility] Utilities Answer Date Recorded In the past [...] TH Visit (TeleHealth) Radiation Oncology at [address] [phone] Adrienne Singh PA [facility] HEMATOLOGY [place] [address] 11/30/2023 10:30 AM EDT Infusion Hematology Oncology at [address] [phone] documented as of this encounter Visit Diagnoses Not on filedocumented in this encounter Care Teams Can Technician Relationship Specialty Start Date End Date Jez Vance MD [address] [place] [address] PCP - General 01/07/10 documented as of this encounter
--- OUTSIDE RECORDS SUMMARY | 2023-11-21 00:07 | XMS_ITS | Encounter Summary ---
Author Organization Formerly [facility] [place] [address] Care Team Providers Care Nutrition Representative Name Role Phone Jez Vance MD Primary Care Provider [phone] Encounter Details Date Type Department Care Team (Late st Contact Info) Description 11/12/2023 9:38 AM EDT Anesthesia Event [place] [address] Lore Maxwell MD [facility] [address] [place] [address] Anjum Saul CRNA [facility] [place] [address] Anesthesia Record Procedure Summary Procedure Name Responsible Anesthesiologist Anesthesia Start Time Anesthesia Stop Time LAPAROSCOPY, DIAGNOSTIC, ABDOMEN (WRVU 5.14) (Abdomen) Lore Maxwell MD 11/12/23 0938 11/12/23 1106 Events Date Time Event Comment 11/12/2023 0931 0938 AN Verify 0938 Start 0938 An Start Data 0943 An Induction 0948 An Intubation 0951 Anesthesia Ready 1000 Break/Relief In I assumed ca re for Break Relief before which we: 1. Identified the patient 2. Identified the responsible provider(s) 3. Reviewed the pertinent medical history 4. Discussed the surgical plan and course 5. Reviewed intra-op anesthesia management and issues during anesthesia 6. Set expectations for the relief (and/or post-procedure) period 7. Allowed opportunity for questions and acknowledgement of understanding Andrew Ortiz MD 1010 Procedure Start 1105 Extubation/LMA Out 1105 an stop data 1106 Recovery or ICU Handoff Vivian ent care was transferred to the destination unit staff after review of the patient's medical history, current anesthetic/surgical status and plan, according to the Provider Handoff Checklist. 1106 Stop Meds Name Total lidocaine IV 50 mg propofoL 150 mg rocuronium 50 mg PHENYLephrine 320 mcg ondansetron 8 mg dexAMETHasone 8 mg propofol INF 609.55 mg ceFAZolin (Ancef) (100 mg/mL) injection solution 1 g 2 g sugammadex 200 mg lactated ringers 700 mL * Agents Name O2 Sevoflurane (et) * Blood No blood administrations on file. Lines, Drains, and Airways Type Details Placement Removal Implanted Port 11/12/23; Single Lum en; power injectable port; infraclavicular fossa, right; superior vena cava; placement verified by x-ray; dermabond 11/12/23 0000 by Jazmine Cherry RN Incision 11/12/23; umbilical area; dermabond to 2 puncture sites 11/12/23 0000 by Jazmine Cherry RN PIV 11/12/23; 0839; 22 g auge; metacarpal vein (top of hand), right; Anatomical Landmarks; Tiera Hummel RN; intradermal injection, distraction; 0; 11/12/23; 1202 11/12/23 0839 by Tiera Biggs RN 11/12/23 1202 by Sandrine Win RN ETT Mask Ventilation: Ad junct (2); ETT Type: Cuffed, Oral; ETT Size: 22 mm; Mac Blade: 4; Notes: Asleep, Pre-O2; Attempts: 1; Laryngoscopy Grade: 1; ETT Placement Verified By: Auscultation, Capnometry; Secured at Teeth: 23 cm; Inserted by: Kg; Removal Date: 11/12/23; Removal Time: 1105 11/12/23 0943 by Anjum Saul ORNAMENTAL PLASTERER HELPER 11/12/23 1105 by Anjum Saul CRNA documented in this encounter Social History Tobacco Use Types Packs/Day Years [...] from your doctor or pharmacy? Never 11/04/2023 [facility] Utilities Answer Date Recorded In [...] place to sleep or slept in a half-way (including now)? No 08/06/2022 Housing Stability Vital [...] were you homeless or living in a half-way (including now)? No 11/04/2023 [facility] IPV Inpatient [...] on file documented as of this encounter OR Notes * Anesthesia Postprocedure Evaluation - Lore Maxwell MD - 11/12/2023 11:19 AM EDT Department of Anesthesiology Post-procedure Note Patient: Benny Zurita Procedure Summary Date: 11/12/23 Room / Location: [facility] OR [address] [place] [address] OSC Anesthesia Start: 937 Anesthesia Stop: 1105 Procedures: LAPAROSCOPY, DIAGNOSTIC, ABDOMEN (WRVU 5.14) (Abdomen) YUNG\NGUYEN.CATHETER,TUNNELED, WITH SQ PORT OR PUMP OVER 5YR (WRVU 5.79) (Chest) FLUOROSCOPY (WRVU 0.3) Diagnosis: (PANCREAS CANCER) Surgeons: Carmen Obrien MD Responsible Provider: Lore Maxwell MD Anesthesia Type: general ASA Status: 3 All Anesthesia Providers: Anesthesiologist: Lore Maxwell MD ORNAMENTAL PLASTERER HELPER: Anjum Saul CRNA Vitals Value Taken Time BP 156/64 11/12/23 1115 Temp 36.2 ??C (97.2 ??F) 11/12/23 1106 Pulse 58 11/12/23 1119 Resp 16 11/12/23 1106 SpO2 100 % 11/12/23 1119 Pain Level 0 11/12/23 1106 Vitals shown include unfiled device data. Patient Location: PACU/[facility] Level of Consciousness: Awake and Alert Pain Management: Satisfactory Analgesia PONV: None Cardiovascular Status: At Baseline and Hemodynamically Stable Respiratory Status: At Baseline and Room Air Postoperative Fluid Status: Intravascular EUvolemia Possible Anesthetic Complications: NONE apparent at time of evaluation Final Primary Anesthesia Type: General (The anesthetic type performed was the same as planned.) Comments: Tele shows latrice arrhythmia - looks like bigeminy pattern. P waves present. TN interval not prolonged. Patient sleeping comfortably, asymptomatic. Hemodynamically stable. 12-lead ordered showing sinus latrice arrhythmia with PACs - similar to previous. Lore Maxwell MD * Anesthesia Preprocedure Evaluation - Lore Maxwell MD - 11/12/2023 9:00 AM EDT Pre-Anesthesia Evaluation for: Benny Zurita a 83 y.o. male. Procedure(s): LAPAROSCOPY,SURGICAL,WITH BIOPSY, SINGLE OR MULTIPLE (WRVU 5.44) YUNG\NGUYEN.CATHETER,TUNNELED, WITH SQ PORT OR PUMP OVER 5YR (WRVU 5.79) Patient Active Problem List Diagnosis Date Noted ??? Malignant neoplasm of head of pancreas 11/09/2023 ??? Hypokalemia 10/24/2023 ??? Painless jaundice 10/23/2023 ??? Malignant neoplasm of prostate 07/31/2022 Past Medical History: Diagnosis Date ??? HTN (hypertension) ??? Hyperlipidemia ??? Prostate cancer Past Surgical History: Procedure Laterality Date ??? PRO ENDOSCOPIC US EXAM, ESOPH N/A 10/25/2023 UPPER EUS- ENDOSCOPIC ULTRASOUND (WRVU 3.47) performed by Andrew Reynoso MD at [facility] ENDOSCOPY ??? PRO ERCP BALLOON DILATATION BILIARY/PANCREATIC DUCT OR AMPULLA EA DUCT 10/25/2023 ERCP, W BALLOON DILATION OF BILIARY/PANCREATIC DUCT (WRVU 6.9) performed by Andrew Reynoso MD at [facility] ENDOSCOPY ??? PRO ERCP STENT PLACEMENT BILIARY OR PANCREATIC DUCT 10/25/2023 ERCP, W PLCMNT ENDOSCOPIC STENT BILIARY OR PANCREATIC DUCT (WRVU 8.48) performed by Andrew Reynoso MD at [facility] ENDOSCOPY ??? PRO ERCP, SPHINCTEROTOMY 10/25/2023 ERCP W/SPHINCTEROTOMY/PAPILLOTOMY (WRVU 6.5) performed by Andrew Reynoso MD at [facility] ENDOSCOPY ??? PRO ERCP,DIAGNOSTIC N/A 10/25/2023 ERCP (WRVU 5.85) performed by Andrew Reynoso MD at [facility] ENDOSCOPY ??? PRO UPGI ENDOSCOPY W/US FN BX 10/25/2023 EGD, W US GUIDED FINE NEEDLE ASPIRATION/BIOPSY (WRVU 4.16) performed by Andrew Reynoso MD at [facility] ENDOSCOPY ??? PROSTATE BIOPSY ??? ROTATOR CUFF REPAIR Bilateral Social History Tobacco Use ??? Smoking status: Never ??? Smokeless tobacco: Never Substance Use Topics ??? Alcohol use: Yes Alcohol/week: 1.0 standard drink of alcohol Types: 1 Glasses of wine per week Comment: social drinker once a month Social History Substance and Sexual Activity Drug Use Never No Known Allergies Medications: MAR and/or home medications have been reviewed. Physical Exam: Preprocedure Vitals Current as of 11/12/23 0900 BP: 149/69 Pulse: 67 Resp: 16 SpO2: 98 Temp: 36.1 ??C (97 ??F) Height: 177.8 cm (5' 10) (11/12/23) Weight: 83.5 kg (184 lb) (11/12/23) BMI: 26.4 IBW: 73 kg (160 lb 15 oz) Last edited 11/12/23 0824 by Airway Assessment: Mallampati: II TM distance: <3 FB Cardiovascular Assessment: Rhythm: regular Pulmonary Assessment: pulmonary exam normal Dental Assessment: - normal exam Misc Assessment: Patient is wearing No contact(s). IV access: Peripheral line Last Filed Perioperative Cognitive Screening None Anesthesia Plan: ASA 3 general, with a(n) intravenous induction 83 yo 84kg M (BMI 26) with pancreatic cancer presents for laparoscopic biopsy and tunneled port placement. PMH is otherwise notable for HTN, HLD, prostate cancer, asthma. Hx of RCR, ERCP. Plan is GA/ETT with standard monitors and PIVx1. Region - Other Informed Consent: Anesthetic plan and risks discussed with patient. Plan discussed with ORNAMENTAL PLASTERER HELPER. Anesthesia Screening documented in this encounter Plan of Treatment Upcoming Encounters Date Type Department Care Team (Late st Contact Info) Description 11/30/2023 9:45 AM EDT TH Visit (TeleHealth) Radiation Oncology at [address] [phone] Adrienne Singh PA [facility] HEMATOLOGY [place] [address] 11/30/2023 10:30 AM EDT Infusion Hematology Oncology at [address] [phone] documented as of this encounter Visit Diagnoses Not on filedocumented in this encounter Administered Medications Inactive Administered Medications - up to 3 most recent administrations Medication Order MAR Action Action Date Dose Rate Site ceFAZolin (Ancef) (100 mg/mL) injection solution 1 g 1 g, Intravenous, ONCE, 1 dose, On Wed11/12/23 at 1015, To be prepared by and administered by Anesthesia. Reconstitute each ceFAZolin 1 gram vial with 10 mL of NS or SWFI = 100 mg/mL May inject IV without further dilution over 3 to 5 minutes., Indication for (Active or Suspected): Prophylaxis New Bag 11/12/2023 10:00 AM EDT 2 g dexAMETHasone (Decadron) injection Intravenous, PRN, Starting on Wed11/12/23 at 0952, Until Wed11/12/23 at 1106, Anesthesia Intra-op, Routine Given 11/12/2023 9:52 AM EDT 8 mg lactated ringers infusion Intravenous, CONTINUOUS PRN, Starting on Wed11/12/23 at 0938, Until Wed11/12/23 at 1106, Anesthesia Intra-op New Bag 11/12/2023 9:38 AM EDT lidocaine (pf) (Xylocaine) (20 mg/mL) 2% injection syringe Intravenous, PRN, Starting on Wed11/12/23 at 0943, Until Wed11/12/23 at 1106, Anesthesia Intra-op, Routine Given 11/12/2023 9:43 AM EDT 50 mg ondansetron (pf) (Zofran) (2 mg/mL) injection Intravenous, PRN, Starting on Wed11/12/23 at 1046, Until Wed11/12/23 at 1106, Anesthesia Intra-op, Routine Given 11/12/2023 10:46 AM EDT 8 mg PHENYLephrine in NS (PF) (NOE-SYNEPHRINE) 0.8 mg/10 mL (80 mcg/mL) multi-dose injection Syringe Intravenous, PRN, Starting on Wed11/12/23 at 1002, Until Wed11/12/23 at 1106, Anesthesia Intra-op, Routine Given 11/12/2023 10:43 AM EDT 80 mcg Given 11/12/2023 10:31 AM EDT 80 mcg Given 11/12/2023 10:24 AM EDT 80 mcg propofoL (Diprivan) (10 mg/mL) infusion Intravenous, CONTINUOUS PRN, Starting on Wed11/12/23 at 0943, Until Wed11/12/23 at 1106, Anesthesia Intra-op, Routine New Bag 11/12/2023 9:43 AM EDT 100 mcg/kg/min 50.1 mL/hr propofoL (Diprivan) 10 mg/mL bolus injection (Anesthesia) Intravenous, PRN, Starting on Wed11/12/23 at 0943, Until Wed11/12/23 at 1106, Anesthesia Intra-op Given 11/12/2023 9:43 AM EDT 150 mg rocuronium (Zemuron) (10 mg/mL) multi-dose injection Intravenous, PRN, Starting on Wed11/12/23 at 0944, Until Wed11/12/23 at 1106, Anesthesia Intra-op, Routine Given 11/12/2023 9:44 AM EDT 50 mg sugammadex (Bridion) 100 mg/mL injection Intravenous, PRN, Starting on Wed11/12/23 at 1056, Until Wed11/12/23 at 1106, Anesthesia Intra-op, Routine Given 11/12/2023 10:56 AM EDT 200 mg documented in this encounter Care Teams Nutrition Representative Relationship Specialty Start Date End Date Jez Vance MD [address] [place] [address] PCP - General 01/07/10 documented as of this encounter
--- OUTSIDE RECORDS SUMMARY | 2023-11-21 00:07 | XMS_ITS | Encounter Summary ---
Author Organization Formerly [facility] [place] [address] Care Team Providers Care Agent Ticketing Gate Name Role Phone Jez Vance MD Primary Care Provider [phone] Encounter Details Date Type Department Care Team (Late st Contact Info) Description 11/08/2023 Orders Only Hematology [place] [address] [facility] [address] Malignant neoplasm of head of pancreas; Malignant neoplasm of prostate Social History Tobacco [...] doctor or pharmacy? Never 11/04/2023 [facility] Utilities Answer Date Recorded In the [...] place to sleep or slept in a fpc (including now)? No 08/06/2022 Housing Stability Vital Sign Answer Omari e Recorded In the last 12 months, was t here a time when you were not able to pay the mortgage or rent on time? No 11/04/2023 In the past 12 months, how m any times have you moved where you were living? 1 11/04/2023 At any time in the past 12 m [facility], were you homeless or living in a fpc (including now)? No 11/04/2023 IPV Inpatient Questions [...] EDT TH Visit (TeleHealth) Radiation Oncology at [address] [phone] Adrienne Singh PA [facility] [place] [address] 11/30/2023 10:30 AM EDT Infusion Hematology Oncology at [address] [phone] Pending Results Name Type Priority Associated Diagnoses Date /Time Miscellaneous Lab request Lab Routine Malignant neoplasm of head of pancreas Malignant neoplasm of prostate 11/09/2023 12:35 PM EDT Scheduled Orders Name Type Priority Associated Diagnoses Orde r Schedule Miscellaneous Lab request Lab Routine Malignant neoplasm of head of pancreas Malignant neoplasm of prostate Expected: 11/09/2023, Expires: 05/10/2024 documented as of this encounter Visit Diagnoses Diagnosis Malignant neoplasm of head of pancreas Malignant neoplasm of prostate Malignant neoplasm of prostate- Primary Androgen deprivation therapy Encounter for therapeutic drug monitoring S/P radiotherapy Convalescence following radiotherapy documented in this encounter Care Teams Agent Ticketing Gate Relationship Specialty Start Date End Date Jez Vance MD [address] [place] [address] PCP - General 01/07/10 documented as of this encounter
--- OUTSIDE RECORDS SUMMARY | 2023-11-21 00:07 | XMS_ITS | Encounter Summary ---
Author Organization [facility] Address [facility] [place] [address] Care Team Providers Care Operations Expert Name Role Phone Jez Vance MD Primary Care Provider [phone] Encounter Details Date Type Department Care Team (Latest Contact Info) Description 10/30/2023 Travel Social History Tobacco Use Types Packs/Day Years Used Date Smoking Tobacco: Never Smokeless Tobacco: Never Alcohol Use Standard Drinks/Week Comments Yes 1 (1 standard drink = 0.6 oz pur e alcohol) social drinker once a month [facility] Utilities Answer Date Recorded In the past [...] any time in the past 12 m [place], were you homeless or living in a care home (including now)? No 10/25/2023 IPV Inpatient Questions [...] EDT TH Visit (TeleHealth) Radiation Oncology at [address] [phone] Adrienne Singh PA [facility] HEMATOLOGY AND ONCOLOGY [place], [place] [phone] 11/30/2023 10:30 AM EDT Infusion Hematology Oncology at [address] [phone] documented as of this encounter Visit Diagnoses Not on filedocumented in this encounter Care Teams Operations Expert Relationship Specialty Start Date End Date Jez Vance MD [address] [place] [address] PCP - General 01/07/10 documented as of this encounter
--- OUTSIDE RECORDS SUMMARY | 2023-11-21 00:07 | XMS_ITS | Encounter Summary ---
Author Organization [facility] Address [facility] [place] [address] Care Team Providers Care Rn Digestive Name Role Phone Jez Vance MD Primary Care Provider [phone] [phone] Reason for Visit * Reason Comments Chemotherapy * Treatment/Therapy Plan Authorization (Routine) - Authorized Specialty Diagnoses / Procedures Referred By Deena yao Referred To Contact Diagnoses Malignant neoplasm of head of pancreas Procedures INFUSION Antonio Brownlee MD [facility] [place] [address] Stj Hem Onc Infusion [address] [place] [phone] Referral ID Status Reason Start Date Expiration Date V isits Requested Visits Authorized [id number] Authorized 11/09/2023 11/08/2024 99 Encounter Details Date Type Department Care Team (Late st Contact Info) Description 11/19/2023 10:30 AM EDT Infusion Hematology Oncology at [address] [phone] Malignant neoplasm of head of pancreas Social [...] or pharmacy? Never 11/04/[address] [facility] Utilities Answer Date Recorded In the [...] place to sleep or slept in a snf (including now)? No 08/06/2022 Housing Stability Vital Sign Answer Omari e Recorded In the last 12 months, was t here a time when you were not able to pay the mortgage or rent on time? No 11/04/2023 In the past 12 months, how m any times have you moved where you were living? 1 11/04/2023 At any time in the past 12 m [facility], were you homeless or living in a snf (including now)? No 11/04/2023 [facility] IPV Inpatient [...] as of this encounter Progress Notes * Marbella Hermosillo RN - 11/19/2023 10:30 AM EDT INFUSION THERAPY ADMINISTRATION NOTES DIAGNOSIS: Pancreas CYCLE #: C1D1 REASON FOR VISIT: FOLFIRINOX infusion and initiation of continunous home 5FU infusion via CADD pumpprovided by [employer] SUBJECTIVE Benny offers no complaints, he met with Fani Jane APRN prior to infusion, ready for treatment. OBJECTIVE LAB DATA: Labs reviewed and found adequate for treatment. Pre administration: Chemotherapy orders independently verified for drug name, route, and dosage per patient's height, weight and BSA by Marbella Hermosillo, CARISSA and staff pharmacists. At time of administration Patient identity verified using patient's name and date of at the chair/bedside by double RN check just prior to initiating the patient's home infusion chemotherapy via CADD pump provided by [employer]. Amount infused verified by double RN check after 15 minutes and appropriate amount had infused. REACTIONS (DESCRIPTION, TIME, INTERVENTION AND EFFECTIVENESS) none ASSESSMENT Benny was awake, alert and tolerated treatment well. Pt. chemo teaching instructions included: During clinic hours (8am-5pm Wednesday-Wednesday): pt. can call [phone] with questions or concerns. After clinic hours (5pm-8am Wednesday-Wednesday and weekends) pt can call [phone] and ask for the remote sensing program manager/oncologist inspector conveyor line. Benny Zurita verbalized understanding of potential chemotherapy side effects and home care including but not limited to- handwashing to prevent infection, signs and symptoms of low blood counts (fever, fatigue, bleeding), to call with a fever of 100.4 or greater, any significant constipation/diarrhea, importance of nutrition and fluid intake (drinking at least 32-64 ounces of non-caffeinated beverages/day), mouth care. Benny Zurita verbalized understanding of how to take prescription medications given for home useafter chemotherapy. PLAN Disconnect at [facility] on Monday 11/20 at 1400. documented in this encounter Plan of Treatment Upcoming Encounters Date Type Department Care Team (Late st Contact Info) Description 11/30/2023 9:45 AM EDT TH Visit (TeleHealth) Radiation Oncology at [address] [phone] Adrienne Singh PA [facility] HEMATOLOGY [place] [address] 11/30/2023 10:30 AM EDT Infusion Hematology Oncology at [address] [phone] documented as of this encounter Visit Diagnoses Diagnosis Malignant neoplasm of head of pancreas Malignant neoplasm of prostate- Primary Androgen deprivation therapy Encounter for therapeutic drug monitoring S/P radiotherapy Convalescence following radiotherapy documented in this encounter Administered Medications Inactive Administered Medications - up to 3 most recent administrations Medication Order MAR Action Action Date Dose Rate Site aprepitant (Cinvanti) (7.2 mg/mL) injection emulsion 130 mg 130 mg, Intravenous, Administer over 2 Minutes, ONCE, 1 dose, On Wed11/19/23 at 1115, Alternative administration of IV push over 2 minutes is a recommendation from the mold builder. Administer prior to chemotherapy., Routine Given 11/19/2023 11:27 AM EDT 130 mg atropine (0.1 mg/mL) injection 0.5 mg 0.5 mg, Intravenous, Administer over 1 Minutes, ONCE, 1 dose, On Wed11/19/23 at 1115, Administer prior to IRINOtecan, Routine Given 11/19/2023 2:04 PM EDT 0.5 mg dexAMETHasone (Decadron) tablet 10 mg 10 mg, Oral, ONCE, 1 dose, On Wed11/19/23 at 1145, Administer prior to chemotherapy, Routine Given 11/19/2023 11:20 AM EDT 10 mg fluorouraciL (AdruciL) in sodium chloride 0.9% 138 mL infusion (46 Hour - For Home Use) 2,424 mg 2,424 mg (1,200 mg/m2/dose ? 2.02 m2 Treatment Plan BSA from Recorded weight), Intravenous, ONCE, 1 dose, On Wed11/19/23 at 1545, Administer over 46 Hours, Warning Vesicant/Irritant Medication To be infused via an ambulatory infusion CADD Díaz pump continuously IV at 3 mL/hr for 46 hours. Pump provides 1200 mg/m2 IV over 46 hours. Given 11/19/2023 3:52 PM EDT 2,424 mg 3 mL/hr IRINOtecan (Camptosar) 240 mg in dextrose 5% 512 mL infusion 240 mg (rounded from 242.4 mg = 120 mg/m2/dose ? 2.02 m2 Treatment Plan BSA from Recorded weight), Intravenous, ONCE, 1 dose, On Wed11/19/23 at 1215, Administer over 90 Minutes, Warning Vesicant/Irritant Medication Administer 30 minutes after the start of the leucovorin. New Bag 11/19/2023 2:04 PM EDT 240 mg 341.3 mL/hr leucovorin (Wellcovorin) 350 mg in dextrose 5% 85 mL infusion 350 mg, Intravenous, ONCE, 1 dose, On Wed11/19/23 at 1215, Administer over 120 Minutes, Administer upon completion of OXALIplatin infusion. Do not administer at a rate faster than 160 milligrams/minute. New Bag 11/19/2023 1:29 PM EDT 350 mg 42.5 mL/hr OXALIplatin (Eloxatin) 150 mg in dextrose 5% 280 mL infusion 150 mg (rounded from 137.36 mg = 68 mg/m2/dose ? 2.02 m2 Treatment Plan BSA from Recorded weight), Intravenous, ONCE, 1 dose, On Wed11/19/23 at 1215, Administer over 85 Minutes, Administer first. Compatible with dextrose-containing solution only. Warning Vesicant/Irritant Medication New Bag 11/19/2023 11:43 AM EDT 150 mg 197.6 mL/hr palonosetron (Aloxi) (0.05 mg/mL) injection 0.25 mg 0.25 mg, Intravenous, ONCE, 1 dose, On Wed11/19/23 at 1115, Administer over 30 seconds., Routine Given 11/19/2023 11:24 AM EDT 0.25 mg documented in this encounter Care Teams Rn Digestive Relationship Specialty Start Date End Date Jez Vance MD [address] [place] [address] PCP - General 01/07/10 documented as of this encounter
--- OUTSIDE RECORDS SUMMARY | 2023-11-21 00:07 | XMS_ITS | Encounter Summary ---
Author Organization [facility] Address [facility] [place] [address] Care Team Providers Care Lesson Instructor Name Role Phone Jez Vance MD Primary Care Provider [phone] [phone] Encounter Details Date Type Department Care Team (Late st Contact Info) Description 11/19/2023 10:00 AM EDT Office Visit Hematology/Oncology at [address] [phone] Antonio Brownlee MD [facility] [place] [address] Fani Haskins APRN [address] [place] [address] DR HEMATOLOGY AND ONCOLOGY [place], [place] [id number] Malignant neoplasm of head of pancreas; Chemotherapy induced nausea and vomiting Social History Tobacco Use Types Packs/Day Years [...] from your doctor or pharmacy? Never 11/04/2023 [facility] Utilities Answer Date Recorded In the past 12 months has e [employer], gas, oil, or water company threatened to [...] any time in the past [facility], were you homeless or living in [...] Mass Index 26.6 11/19/2023 9:49 AM EDT documented in this encounter Patient Instructions * Patient Instructions* Fani Haskins APRN - 11/19/2023 10:00 AM EDT Antitumor Therapy Schedule (q 2 weeks): Day 1: Oxaliplatin, Irinotecan infusion and Fluorouracil rapid infusion in the infusion room Day 1-3: Fluorouracil slow infusion given by pump for 48hrs. Laboratory Tests: before each visit with your provider, you will have blood drawn which may include: complete metabolic panel (CMP) and complete blood count (CBC) with differential. Your provider mayor may not choose to check a (CEA) carcinoembryonic antigen tumor marker level. Provider Visits: you will see either the physician or nurse practitioner before each cycle of chemotherapy. Possible Side Effects include, but are not limited to: Fluorouracil (5FU): The most common potential side effects include: Decrease in blood counts (decrease in white blood cells, red blood cells and platelets, resulting in increased risk of infection, anemia and bleeding), decreased appetite, diarrhea, fatigue, rashes, mouth sores. Less common side effects include chest pain, hand/foot syndrome (irritation of palms and soles of your feet). Oxaliplatin: The most common potential side effects include: Decrease in blood counts (decrease in white blood cells, red blood cells and platelets, resulting in increased risk of infection, anemia and bleeding), nausea/vomiting, tingling or discomfort in the hands, feet, nose, or throat especiallyif exposed to cold temperatures, persistent tingling or numbness in the hands and feet. Less common side effects include infusion reactions, diarrhea. Irinotecan: Most common side effects are: tiredness, fever, diarrhea which can cause dehydration, sometimes abdominal pain or shortness of breath as chemotherapy is given and sometimes chills. Other effects can be hair thinning or hair loss, decrease in blood counts causing anemia, difficulty clotting, and vulnerability to infection which can cause fevers and chills. Nausea and vomiting can be anissue, as well as mouth sores. Sometimes rash will occur including redness and irritation of palms and soles of your feet. Medications: the following prescriptions should be picked up before starting treatment Prochlorperazine (Compazine) 1 tablet (10 mg) every 6-8 hours as needed You may also have an additional anti-nausea medicine as well Ondansetron (Zofran) 1 tablet (8mg) every 8 hours as needed. DO NOT take this medication until 4 days after your infusion so we can avoid side effects since you will be getting a ???cousin?? of thismedicine IV before your chemotherapy on Day 1. documented in this encounter Progress Notes * Fani Haskins APRN - 11/19/2023 10:00 AM EDT Images from the original note were not included. Subjective Patient ID: Benny Zurita is 83 [...] based on the results of restaging evaluation. E. Diagnostic lap - 11/12/23, no signs of metastatic disease 2. Prostate cancer Diagnosed in 06/2022 High-risk prostate cancer (Stage IIC: cT1c, cN0, cM0; [place] 4+4, PSA 11.9 S/p radiation, completed in 11/2023 Concurrent ADT 3. HTN 4. HLD 5. Asthma 6. MHA's HPI Benny Zurita is referred for evaluation and management of pancreatic cancer. The history is summarized above. Benny is accompanied to clinic today by his Angela. He is feeling pretty well, his appetite isgood and his weight has stabilized. He is using Creon, two with meals 1 with snacks, and his stoolsare formed/dark in color. He has some gassiness and burping. No pain. He is pretty active but tires easily. 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 Objective Physical Exam Vitals reviewed. Constitutional: General: He is not in acute distress. HENT: Head: Normocephalic and atraumatic. Mouth/Throat: Pharynx: Oropharynx is clear. No oropharyngeal exudate. Eyes: General: No scleral icterus. Cardiovascular: Rate and Rhythm: Normal rate and regular rhythm. Pulmonary: Effort: Pulmonary effort is normal. No respiratory distress. Breath sounds: No wheezing or rales. Abdominal: General: There is no distension. Palpations: Abdomen is soft. Musculoskeletal: General: No swelling. Skin: General: Skin is warm and dry. Findings: No rash. Neurological: General: No focal deficit present. Mental Status: He is alert and oriented to person, place, and time. Coordination: Coordination normal. BP 136/61 (Patient Position: Sitting) Pulse 75 Temp 36.3 ??C (97.3 ??F) (Temporal) Resp 18 Ht 177.8 cm (5' 10) Wt 84.1 kg (185 lb 6.4 oz) SpO2 100% BMI 26.60 kg/m?? Labs: WBC/ANC 5., H/H 12.9/39.4, plt 197,000, BUN/Creat 12/0.58, glucose 198, t protein 5.7, remainder of CMP otherwise unremarkable. CA 19-9 11/17/23 181 11/12/23 [place] [facility]/21/23 79 [place] [facility] PGX Assessment and Plan Benny Zurita is 83 [...] day. His case was discussed at [facility] on 11/09/23, images reviewed. There is no evidence of distant metastatic disease. The pancreatic mass focally abuts the right lateral margin of the superior SMV and the main portal vein. The primary tumor is considered resectable. The recommendation was fordiagnostic laparoscopy. The diagnostic laparoscopy was done 11/12/23 and was negative for signs of metastatic disease. He also saw our Genetics Counselor, Rainer Mattehws, and blood was drawn for genetic testing, this is pending. Our plan is for neoadjuvant therapy x 4 months (with restaging CT scan after 2 and 4 months), followed by consideration of radiation depending on the imaging results and consideration of surgery (assuming no evidence of disease progression/metastatic disease). Depending on how well he recovers fromsurgery, would plan to try to give an additional two months of chemotherapy post-op. Blood was drawn for PGX testing as above. Irinotecan has been reduced to 80% and the 5FU dose has been reduced to 50%. In addition we are reducing the oxaliplatin to 80% due to some baseline neuropathy. He will begin therapy today, 11/19/23 and we will see him back in 2 weeks. He also has one more doseof lupron to receive, which is coming up in November as well. Hopefully we can combine these visits. documented in this encounter Plan of Treatment Upcoming Encounters Date Type Department Care Team (Late st Contact Info) Description 11/30/2023 9:45 AM EDT TH Visit (TeleHealth) Radiation Oncology at [address] [phone] Adrienne Singh PA [facility] [address] 11/30/2023 10:30 AM EDT Infusion Hematology Oncology at [address] [phone] documented as of this encounter Visit Diagnoses Diagnosis Malignant neoplasm of head of pancreas Chemotherapy induced nausea and vomiting Nausea with vomiting Malignant neoplasm of prostate- Primary Androgen deprivation therapy Encounter for therapeutic drug monitoring S/P radiotherapy Convalescence following radiotherapy documented in this encounter Care Teams Lesson Instructor Relationship Specialty Start Date End Date Jez Vance MD [address] [place] [address] PCP - General 01/07/10 documented as of this encounter
--- OUTSIDE RECORDS SUMMARY | 2023-11-21 00:07 | XMS_ITS | Encounter Summary ---
Author Organization [facility] Address [facility] [place] [address] Care Team Providers Care Soil Sampler Name Role Phone Jez Vance MD Primary Care Provider [phone] Encounter Details Date Type Department Care Team (Late st Contact Info) Description 11/12/2023 7:40 AM EDT - 11/12/2023 12:00 PM EDT Hospital Encounter [place] [phone] Carmen Obrien MD [facility] [place] [address] Cardiac arrhythmia, unspecified cardiac arrhythmia type Discharge Disposition: Home Social History Tobacco Use [...] from your doctor or pharmacy? Never 11/04/2023 [facility] Utilities Answer Date Recorded In the [...] place to sleep or slept in a chcf (including now)? No 08/06/2022 Housing Stability Vital [...] were you homeless or living in a chcf (including now)? No 11/04/2023 IPV Inpatient Questions [...] Sign Reading Time Taken Comments Blood Pressure 150/70 11/12/2023 11:45 AM EDT Pulse 51 11/12/2023 11:45 AM EDT Temperature 36 ??C (96.8 ??F) 11/12/2023 11:45 AM EDT Respiratory Rate 16 11/12/2023 11:06 AM EDT Oxygen Saturation 98% 11/12/2023 11:45 AM EDT Inhaled Oxygen Concentration - - Weight 83.5 kg (184 lb) 11/12/2023 8:24 AM EDT Height 177.8 cm (5' 10) 11/12/2023 8:24 AM EDT Body Mass Index 26.4 11/12/2023 8:24 AM EDT documented in this encounter Discharge Instructions * Discharge Instructions* Tiera Biggs RN - 11/12/2023 8:17 AM EDT General [...] closest emergency room or call the hospital switch operators supervisor at [phone] and ask for physician recreation therapy teacher covering for your physician. Questions or problems after 5pm or on a weekend: Call the [facility] switch operators supervisor at and ask for the physician recreation therapy teacher covering for your doctor. * Patient Instructions* [...] please call the surgery clinic nurses at [phone]. If you have any concerns at night or when the clinic is closed then please call the main [facility] number and ask to speak with the general surgery resident recreation therapy teacher. That number is [phone]. Dr. Obrien will see you back after you finish the neoadjuvant therapy. documented in this encounter Medications at Time of Discharge Medication Sig Dispensed Refills Start Date End Date cjbqev-bhrnhyfc-ssiyvpz (Cre 24) 24,000-76,000 -120,000 unit capsuleIndications:Malign ant neoplasm [...] in the preoperative [place] [facility] is here today with his -Scar. We discussed a plan to proceed with a laparoscopy to complete the staging workup and the Mediport placement to facilitate systemic chemotherapy with Dr. Brownlee. Informed consent was obtained. Shorty Obrien MD 11/12/2023 9:51 AM documented in this encounter Miscellaneous Notes * Op Note - Carmen Obrien MD - 11/12/2023 10:13 AM EDT [facility] Operative Note Patient Name: Benny Zurita : [id number] MR#: [id number] Case Date: 11/12/2023 Surgeon: Surgeons and Role: [...] EDT TH Visit (TeleHealth) Radiation Oncology at [address] [phone] Adrienne Singh PA [facility] HEMATOLOGY [place] [address] 11/30/2023 10:30 AM EDT Infusion Hematology Oncology at [address] [phone] documented as of this encounter Procedures Procedure Name Priority Date/Time Associated Diagnosis Comments XR CHEST ONE VIEW Routine 11/12/2023 11: 33 AM EDT EKG 12-LEAD STAT 11/12/2023 11:23 AM EDT Cardiac arrhythmia, unspecified cardiac arrhythmia type XR FLUORO NO RAD <1HR - OR USE Routine 11/12/2023 10:35 AM EDT Fluoroscopy Exam Up To 1 Hr Phy Or Oth Hlth Care Prov ([id number]) Yes 11/12/2023 9:38 AM EDT [facility] Insert Tunneled CV Cath w SubQ Port, Age 5 Yrs or Older ([id number]) Yes 11/12/2023 9:38 AM EDT [facility] Lap, Diagnostic Abdomen ([id number]) Yes 11/12/2023 9:38 AM EDT [facility] documented in this encounter Results * XR Chest One View (11/12/2023 11:33 AM EDT) WORKSTATION ID [id number] RAD Anatomical Region Laterality Modality Chest N/A [...] who have questions please contact the health patient care provider that requested your imaging first. ? Electronically signed by: Elton Marshall MD, [facility] ([phone]), at 11/12/2023 3:22 PM Narrative 11/12/2023 3:22 [...] patients who have questions please contactthe health patient care provider that requested your imaging first. Electronically signed by: Elton Marshall MD, [facility]([phone]), at 11/12/2023 3:22 PM Carmen Obrien MD IMG DX ORDERABLES * EKG 12 Lead (11/12/2023 11:23 AM EDT) Ventricular rate 55 BPM MUSE SYSTEM Atrial Rate 55 BPM MUSE SYSTEM P-R Interval 150 ms MUSE SYSTEM QRS Duration 108 ms MUSE SYSTEM Q-T Interval 496 ms MUSE SYSTEM QTC Calculated (Bezet) 474 ms MUSE SYSTEM Calculated P [place] 49 degrees MUSE SYSTEM Calculated R [place] -55 degrees MUSE SYSTEM Calculated T [place] 8 degrees MUSE SYSTEM INTERPRETATION Sinus bradycardia [...] LES documented in this encounter Visit Diagnoses Diagnosis Cardiac arrhythmia, unspecified cardiac arrhythmia type Malignant neoplasm of prostate- Primary Androgen deprivation therapy Encounter for therapeutic drug monitoring S/P radiotherapy Convalescence following radiotherapy documented in this encounter Active and Recently [...] ordered pain medications are indicated. , Routine 0930 (Due) ceFAZolin (Ancef) (100 mg/mL) injection solution [...] (New Bag - Prov ider: Anjum Saul, [employer]OLLEY CLEANER) PRN Medication Order 11/10/2023 11/11/2023 11/12/2023 BUPivacaine [...] Comment: 1000 units mixed with 100ml of fo7457 units mixed with 10ml of ns) documented in this encounter Care Teams Soil Sampler Relationship Specialty Start Date End Date Jez Vance MD [address] [place] [address] PCP - General 01/07/10 documented as of this encounter
--- OUTSIDE RECORDS SUMMARY | 2023-11-21 00:07 | XMS_ITS ---
Author Organization [facility] Address [facility] [place] [address] Care Team Providers Care Renal Case Manager Name Role Phone Jez Vance MD Primary Care Provider [phone] Active Problems Problem Noted Date Diagnosed Date Malignant neoplasm of head of pancreas Hypokalemia 10/24/2023 Painless jaundice 10/23/2023 Malignant neoplasm of prostate 07/31/2022 Cancer Staging:Clinical:Stage IIC(cT1c, cN0, cM0, PSA: 11.9, Grade Group: 4) - Signed by Toro Hayes MD on 07/31/2022 Current Oncology Plans [facility] AM[facility] ONC GI PANCREATIC CANCER - MODIFIED FOLFIRINOX (IRINOtecan 150 MG/M2) * Plan Start Date:11/19/2023 Plan Provider:Antonio Brownlee MD Linked Problems Malignant neoplasm of head o f pancreas Treatment Medications Current Day (Day 1 , Cycle 2 - Planned for 12/03/2023) Next Day (Day 3, Cycle 2 - Planned for 12/05/2023) fluorouraciL (AdruciL) in sodium chloride 0.9% 138 mL infusion (46 Hour - For Home Use)IRINOtecan (Camptosar) in dextrose 5% 500 mL infusionIRINOtecan (Camptosar) Recon Solnleucovorin (Wellcovorin) in dextrose 5% or sodium chloride 0.9% for infusionoxaliplatin (Eloxatin)OXALIplatin (Eloxatin) in dextrose 5% 250 mL infusionPump Disconnect: Home Infusion fluorouraciL (AdruciL) in sodium chloride 0.9% 138 mL infusion (46 Hour - For Home Use) 2,424 mgIRINOtecan (Camptosar) 240 mg in dextrose 5% 512 mL infusionleucovorin (Wellcovorin) 350 mg in dextrose 5% 85 mL infusionOXALIplatin (Eloxatin) 150 mg in dextrose 5% 280 mL infusion Home Infusion: Pump Disconnect Leuprolide (Lupron Depot) injection ([facility], [facility], [facility], [facility], [facility])* Plan Start Date:12/04/2022 Plan Provider:Toro Hayes MD Linked Problems Malignant neoplasm of prosta te Treatment Medications No medications scheduled. Leuprolide (Lupron Depot) Injection ([facility], [facility], [facility], [facility], [facility]) Adult* Plan Start Date:11/26/2023 Plan Provider:Adrienne Singh PA Linked Problems Malignant neoplasm of prosta te Treatment Medications No medications scheduled. Past Plans Therapy Plan 1 Plan Name Start Date Discontinue Date Treatment Medications Discontinue Reason Plan Provider Leuprolide (Lupron Depot) Injection ([facility], [facility], [facility], [facility]) 7.5 mg Every Month 08/13/2022 11/06/2022 No medications scheduled. Patient Preference Toro Hayes MD Radiation Treatments * No radiation treatments are documented for this patient in [facility]. Treatments may have been administered in another system.
--- OUTSIDE RECORDS SUMMARY | 2023-11-21 00:07 | XMS_ITS | Encounter Summary ---
Author Organization [facility] Address [facility] [place] [address] Care Team Providers Care Environmental Conservation Professor Name Role Phone Jez Vance MD Primary Care Provider [phone] Encounter Details Date Type Department Care Team (Late st Contact Info) Description 11/14/2023 Multidisciplinary Ca re Committee [place] [address] Carmen Obrien MD [facility] [place] [address] Social History Tobacco Use Types Packs/Day Years [...] place to sleep or slept in a assisted (including now)? No 08/06/2022 Housing Stability Vital Sign Answer Omari e Recorded In the last 12 months, was t here a time when you were not able to pay the mortgage or rent on time? No 11/04/2023 In the past 12 months, how m any times have you moved where you were living? 1 11/04/2023 At any time in the past 12 m [facility], were you homeless or living in a assisted (including now)? 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 Technically resectable. No metastatic disease. Tumor marker data: 10/21/2023 CA 19-9 was mildly elevated to 79 (total bilirubin 8.6) Pathology: 10/25/2023 EUS FNA of pancreas head mass cytopathology positive for adenocarcinoma. Mismatch repair protein expression intact by IHC. Recommendations: Localized, biopsy-proven technically resectable pancreatic cancer. The group recommended laparoscopy to complete the staging workup and then to be considered for systemic chemotherapy prior to and after surgery-4 months of likely modified FOLFIRINOX versus gemcitabine with Abraxanefollowed by restaging and then Whipple surgery for curative intent followed by 2 months of systemictherapy after surgery. Given that tumor is technical resectability radiation was not recommended but can be revisited after preoperative systemic therapy staging. DISCLAIMER: The patient was discussed and the tumor board made recommendations but it is ultimatelyup to the treatment provider(s) and the patient to determine the patient???s care. documented in this encounter Plan of Treatment Upcoming Encounters Date Type Department Care Team (Late st Contact Info) Description 11/30/2023 9:45 AM EDT TH Visit (TeleHealth) Radiation Oncology at [address] [phone] Adrienne Singh PA [facility] [place] [address] 11/30/2023 10:30 AM EDT Infusion Hematology Oncology at [address] [phone] documented as of this encounter Visit Diagnoses Not on filedocumented in this encounter Care Teams Environmental Conservation Professor Relationship Specialty Start Date End Date Jez Vance MD [address] [place] [address] PCP - General 01/07/10 documented as of this encounter
--- OUTSIDE RECORDS SUMMARY | 2023-11-21 00:08 | XMS_ITS | Encounter Summary ---
Author Organization [facility] [place] [address] Care Team Providers Care Veterinary Medical Officer Name Role Phone Jez Vance MD Primary Care Provider [phone] Reason for Visit * Reason Comments Jaundice * Auth/Cert (Routine) Specialty Diagnoses / Procedures Referred By Deena yao Referred To Contact Diagnoses Cholestatic liver disease Rj Rizvi MD [facility] [place] [address] [facility] Referral ID Status Reason Start Date Expiration Date Visits Re quested Visits Authorized [id number] 1 1 Encounter Details Date Type Department Care Team (Late st Contact Info) Description 10/25/2023 1:53 PM EDT - 10/25/2023 3:08 PM EDT [place] [address] Andrew Reynoso MD [facility] [place] [address] UPPER EUS- ENDOSCOPIC ULTRASOUND (WRVU 3.47) Social History Tobacco Use Types Packs/Day Years Used Date Smoking Tobacco: Never Smokeless Tobacco: Never Alcohol Use Standard Drinks/Week Comments Yes 1 (1 standard drink = 0.6 oz pur e alcohol) social drinker once a month [facility] Utilities Answer Date Recorded In the [...] place to sleep or slept in a residential (including now)? No 08/06/2022 Housing Stability Vital [...] in the past 12 m [facility], were you homeless or living in a residential (including now)? No 10/25/2023 DH IPV Inpatient Questions Answer Date Recorded [...] Sign Reading Time Taken Comments Blood Pressure 143/51 10/25/2023 1:37 PM EDT Pulse 55 10/25/2023 1:37 PM EDT Temperature 36.7 ??C (98.1 ??F) 10/25/2023 1:37 PM ED T Respiratory Rate 16 10/25/2023 1:37 PM EDT Oxygen Saturation 96% 10/25/2023 1:37 PM EDT Inhaled Oxygen Concentration - - Weight 83.9 kg (185 lb) 10/25/2023 1:37 PM EDT Height 177.8 cm (5' 10) 10/25/2023 1:37 PM EDT Body Mass Index 26.54 10/25/2023 1:37 PM EDT documented in this encounter Discharge Summaries * Ros Gonzáles MD - 10/27/2023 1:55 PM EDT Inpatient - Discharge Summary Patient Name: Benny Zurita Patient Age: 83 y.o. Birthdate: 1940 Admit date: 10/23/2023 Discharge date and time: 10/27/2023 Attending Physician: Ros Gonzáles MD Code Status: Attempt Cardiopulmonary Resuscitation - Inpatient ID: Benny Zurita is a 83 y.o. male admitted for hypokalemia and obstructive jaundice Follow-up Recommendations for Providers: - Patient will require oncologic follow up pending biopsy results - Patient will require follow-up with GI as patient underwent ERCP plus stenting -Await final pathology of FNB (hypoechoic mass in head of pancreas obstructing bile duct and pancreatic duct) New Medications: None Medications Stopped: Hydrochlorothiazide because of hypokalemia New dosing of prior medications: None PENDING LABS: No current labs Discharge Diagnoses (Hospital Problems) and Secondary Diagnoses (Chronic Problems): Active Hospital Problems Diagnosis Hypokalemia Painless jaundice Resolved Hospital Problems No resolved problems to display. Active Non-Hospital Problems Diagnosis Malignant neoplasm of prostate Procedures: Procedure(s): UPPER EUS- ENDOSCOPIC ULTRASOUND (WRVU 3.47) ERCP (WRVU 5.85) EGD, W US GUIDED FINE NEEDLE ASPIRATION/BIOPSY (WRVU 4.16) ERCP W/SPHINCTEROTOMY/PAPILLOTOMY (WRVU 6.5) ERCP, W BALLOON DILATION OF BILIARY/PANCREATIC DUCT (WRVU 6.9) CHOLANGIOGRAM ERCP, W PLCMNT ENDOSCOPIC STENT BILIARY OR PANCREATIC DUCT (WRVU 8.48) History of Presentation (per 10/23/2023 Admission H&P): Benny Zurita is a 83 y.o. year old male with HTN, HLD, mild asthma, and prostate cancer on Lupron who presents with one month of jaundice, fatigue, nausea, pruritus and recent diagnosis of pancreatic mass. Patient states was in his usual state of health until about a month ago. He then noticed he startedto turn yellow and felt generally unwell, fatigued, and nauseated. This has gotten progressively worse over the past two weeks. Then 5 days ago said he started to develop diffuse itchiness and his stools turned white. He presented to his PCP, who obtained an abdominal ultrasound concerning for a pancreatic mass and dilated biliary ducts. He was told he would be getting an MRI to further investigate, but he got impatient and was feeling worse so he presented to the ED at [facility]. In the ED, found to have hypokalemia (2.9), mild normocytic anemia (13.1), normal renal function, markedly elevated bilirubin (8.6), elevated LFT's (AST 258 / ALT 577). GI consulted by the ED and medicine paged for admission. Patient lives with his , split between here and [place]. 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 Rare EtOH. Nonsmoker. No illicits. Previously quite healthy aside from prostate cancer on Lupron. Hospital Course: Benny Zurita was admitted to the Medicine Service on 10/23/2023 in stable condition # Hypokalemia, resolved Patient was aggressively given potassium repletion. His magnesium was checked and was normal. His home diuretic was held. With this his K increased 2.9 --> 3.9 and stayed in normal range thereafter. No concerning cardiac rhythms were observed. Patient's home medication of HCTZ was discontinued because of hypokalemia. # Pancreatic mass # Obstructive jaundice # Hyperbilirubinemia # Elevated transaminases # Marked intrahepatic/extrahepatic biliary dilatation # Pancreatic duct dilatation # Likely malignant biliary obstruction -Patient had one month of painless obstructive jaundice with CT scan showing pancreatic head mass concerning for malignant obstruction. -Patient almost certainly with new dx of pancreatic cancer. GI already consulted by the ED. 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 with placement of 10 mm x 60 mm FCSEMS - LFT appropriately downtrending after ERCP and stenting Recommendation at discharge: - Await final pathology - Patient needs to follow-up with oncology outpatient, Our oncology team had reached out to the [facility] ([facility]) New Patient schedulers to keep an eye out for appointment - He already has an appointment with radiation oncology - Our GI will reach out to him for follow-up appointment # HTN # HLD -Normotensive while inpatient, because of which his home blood pressure medication were held duringhospitalization. - Also his statin was held because of elevated liver enzymes Recommendation at discharge: - Continue to hold HCTZ - Patient can restart losartan (usual dose) if blood pressure more than 140/90 mmHg - Since there is low concern of statin induced liver toxicity, patient can restart his statin as before # Asthma, not in exacerbation -Continue home dose of Singulair Important Studies and Lab Data: Recent Labs 10/27/23 0335 10/26/23 0400 10/25/23 0353 WBC 9.79* 7.51 4.52 HGB 11.9* 12.2* 12.2* HCT 34.1* 35.2* 34.1* PLATELET 196 210 193 Recent Labs 10/27/23 0335 10/26/23 0400 10/25/23 0353 10/24/23 0411 10/23/23 1627 NA 131* 131* 131* < > 134* K 3.5 3.6 3.7 < > 2.9* CL 95* 94* 97* < > 94* CO2 22 24 22 < > 26 BUN 12 19 20 < > 16 CREATININE 0.53* 0.69* 0.70* < > 0.85 CALCIUM 8.4* 8.7 8.8 < > 9.1 MAGNESIUM 0.63* 0.65* -- -- 0.76 PHOS 2.4* 3.1 -- -- 3.6 < > = values in this interval not displayed. Recent Labs 10/27/23 0335 10/26/23 0400 10/25/23 0353 BILITOT 2.8* 3.6* 8.5* AST 73* 132* 190* ALT 291* 400* 458* ALKPHOS 329* 384* 366* No results for input(s): INR, PTT in the last 168 hours. OTHER LABS: Microbiology: Microbiology Results (Last 30 days) No results found for the last 720 hours. Pertinent radiology/diagnostic studies: Results for orders placed or performed during the hospital encounter of 10/23/23 CT Abdomen & Pelvis w Contrast (Exam End: 10/23/2023 1:10 PM) Result Value WORKSTATION ID [id number] Impression 1. Hypodense pancreatic head mass concerning for pancreatic neoplasm, causing marked obstruction intrahepatic and extrahepatic biliary dilatation as well as main pancreatic duct dilatation. 2. No evidence of metastatic disease in abdomen or pelvis or lymphadenopathy 3. See above for other ancillary findings Thank you for letting us participate in the care of this patient. If you are a health care provider and have any questions regarding this report, please contact the number below. For patients who have questions please contact the health healthcare sales representative that requested your imaging first. Electronically signed by: Davy Sinclair MD, [facility] ([phone]), at 10/23/2023 1:[address] Chest w Contrast (Exam End: 10/24/2023 1:41 PM) Result Value WORKSTATION ID [id number] Impression No metastatic disease in the chest. Thank you for letting us participate in the care of this patient. If you are a health care provider and have any questions regarding this report, please contact the number below. For patients who have questions please contact the health healthcare sales representative that requested your imaging first. Electronically signed by: Mariam Johnson MD, [facility] ([phone]), at 10/24/2023 5:21 PM Discharge Conditions/Prognosis: Stable; Functional and Cognitive Status: Upon discharge the patient is hemodynamically stable, fully ambulatory without requiring supplemental oxygen, afebrile and pain free Discharge to: home without services Discharge Medications: Your Medications New Medications Dose Details polyethylene glycoL 17 gram oral powder packet Commonly known as: Miralax Take 17 g by mouth daily. Start taking on: October 28, 2023 17 g Quantity: 14 each Refills: 0 senna-docusate 8.6-50 mg Tablet Commonly known as: Pericolace Take 2 tablets by mouth 2 times daily. 2 tablet Quantity: 60 tablet Refills: 11 Continued medications with new dosing Dose Details tamsulosin 0.4 mg capsule Commonly known as: Flomax Take 1 capsule by mouth daily. What changed: when to take this 0.4 mg Quantity: 90 tablet Refills: 3 Continued medications, unchanged Dose Details COZAAR ORAL Take 50 mg by mouth nightly. 50 mg Refills: 0 ibuprofen 600 mg tablet Commonly known as: Advil Take 600 mg by mouth every 8 hours as needed for Pain. 600 mg Refills: 0 simvastatin 10 mg tablet Commonly known as: Zocor Take 20 mg by mouth daily. 20 mg Refills: 0 Singulair 10 mg tablet Take 5 mg by mouth nightly. Generic drug: montelukast 5 mg Refills: 0 STOPPED Medications hydroCHLOROthiazide 25 mg tablet Commonly known as: HydroDiuril tadalafiL 5 mg tablet Commonly known as: Cialis Updated Allergies/ADRs: No Known Allergies Instructions Given to Patient at Discharge: Patient Instructions Instructions on Discharge to Home Dear Mr. Zurita, you initially came to our hospital in the context of nausea, jaundice, pruritus, vomiting. You are found to have a low potassium. We gave you some potassium, gave you IV fluids and now you feel better. Our GI team was also able to do a procedure (ERCP and stenting +EUS). Now he feels better and we are discharging you home today with following recommendation - You need to follow-up with your primary care doctor within 2-3 weeks of discharge from the hospital - Our GI team will give you a call to schedule an appointment as you need to follow-up with them outpatient - You have an appointment with radiation oncology on 11/02/2023 - We did not give you your blood pressure medications while you were in the hospital because you are blood pressure was fairly controlled. - You can check your blood pressure at home and restart your losartan 50 mg nightly if your blood pressure is more than 140/90 mmHg - We would prefer if you can hold your hydrochlorothiazide (as it can cause low potassium) - Continue rest of the medication as before - Our oncology team had reached out to the [facility] ([facility]) New Patient schedulers to keep an eye out for you. GI will call you to schedule a follow up Call your doctor or seek medical attention if you develop the following - chest pain, shortness of breath, fever, cough, weakness in an arm or leg Activity level - no restrictions Diet - no change in previous diet Driving - as before hospitalization Shower/Bath - permitted Wound Care - none Home Oxygen therapy -none Changes in Your Medications: New Medications: None Medication dose changes: None Stop these medications:Hydrochlorothiazide Follow-up: Future Appointments Date Time Provider Department Center 11/02/2023 10:30 AM Adrienne Singh PA [facility] 11/30/2023 9:45 AM Adrienne Singh PA [facility] 11/30/2023 10:30 AM [facility], ROOM [facility] Your Inpatient Doctor: Ros Gonzáles MD Your Primary Care Provider: Jez Vance MD [phone] For questions regarding this document or issues relating to this hospitalization on the Medical Service, please contact your inpatient physician through the [facility] Marine Tower Operator . Issues afterhours and on weekends will be handled by the Hospitalist staff on-call. General Instructions Endoscopic Retrograde Cholangiopancreatogram (ERCP): What to Expect at Home Your Recovery After you have an endoscopic retrograde cholangiopancreatogram (ERCP), you will be able to go home after your doctor or a nurse checks to make sure you are not having any problems. If you stay in thehospital overnight, you may go home the next day. You may have a sore throat for a day or two after the procedure. This care sheet gives you a general idea about how long it will take for you to recover. But each person recovers at a different pace. Follow the steps below to get better as quickly as possible. How can you care for yourself at home? Activity Rest when you feel tired. You can do your normal activities when it feels okay to do so. Diet Follow your doctor's directions for eating. Unless your doctor has told you not to, drink plenty of fluids. Do not drink alcohol. Medicines Your doctor will tell you if and when you can restart your medicines. He or she will also give you instructions about taking any new medicines. If you take blood thinners, such as warfarin (Coumadin), clopidogrel (Plavix), or aspirin, be sure to talk to your doctor. He or she will tell you if and when to start taking those medicines again. Make sure that you understand exactly what your doctor wants you to do. If a sphincterotomy was done during the test, your doctor may tell you not to take aspirin or otheranti-inflammatory medicines for a few days. These include ibuprofen (Advil, Motrin) and naproxen (Aleve). If you have a sore throat the day after the procedure, use an gipc-msi-abecxod spray to numb your throat. Sucking on throat lozenges and gargling with warm salt water may also help relieve your symptoms. Other instructions For your safety, do not drive or operate machinery until the medicine wears off and you can think clearly. Your doctor may tell you not to drive or operate machinery until the day after your test. Do not sign legal documents or make major decisions until the medicine wears off and you can think clearly. The anesthesia can make it hard for you to fully understand what you are agreeing to. Additional Information for Sedation Patients For patients who received sedation: You may have received medications before and/or during your procedure which effects your judgement and reaction time. Do not drive, operate machinery, drink alcoholic beverages or make important decisions for 24 hours. Be careful on stairs as you may be unsteady on your feet. You may eat a regular diet as tolerated. Do not smoke if you are alone. IV site: Slight redness or tenderness is normal, you can use a warm compress if you would like. If tenderness and/or redness increase or if foul drainage occurs, please contact your Doctor. Please call [phone] before 8pm Mon-Fri with problems, questions or concerns. If you call after 8pm or on weekends, call the Hospital at [phone] and ask to speak to the Carpet Finishing Supervisor banjo repair person and the pony ride operator will contact that person for you. When should you call for help? Call 911 anytime you think you may need emergency care. For example, call if: You passed out (lost consciousness). You pass maroon or bloody stools. You have trouble breathing. Call your doctor now or seek immediate medical care if: You have pain that does not get better after you take pain medicine. You are sick to your stomach or cannot drink fluids. You have new or worse belly pain. You have blood in your stools. You have a fever. You cannot pass stools or gas. Watch closely for changes in your health, and be sure to contact your doctor if you have any problems, like Where can you learn more? [facility] View your After Visit Summary and more online at [email or web address] If you would like to provide feedback about your hospital experience, please call the Office of Patient and Family Relations at . If you have received this After Visit Summary in error, please immediately return it in person to the department, or notify the [facility] Privacy Office by calling toll free at between the hours of 8AM and 5PM to arrange for our retrieval of the documents at no cost to you. Content Version: 12.2 ?? 7966-3192 [employer]. Care instructions adapted under license by [facility]. If you have questions about a medical condition or this instruction, always ask your healthcare professional. [employer] disclaims any warranty or liability for your use of this information.Endoscopic Ultrasound (Oral): What to Expect At Home Your Recovery After you have an endoscopic ultrasound--a test to look for problems in the stomach, liver, gallbladder, and other organs--you will stay at the hospital or clinic for 1 to 2 hours. This will allow the medicine to wear off. You will be able to go home after your doctor or nurse checks to make sure you are not having any problems. You may have a sore throat for a day or two after the test. This care sheet gives you a general idea about what to expect after the test. How can you care for yourself at home? Activity Rest when you feel tired. You can do your normal activities when it feels okay to do so. Diet Follow your doctor's directions for eating. Unless your doctor has told you not to, drink plenty of fluids. Do not drink alcohol. Medicines Your doctor will tell you if and when you can restart your medicines. He or she will also give you instructions about taking any new medicines. If you take blood thinners, such as warfarin (Coumadin), clopidogrel (Plavix), or aspirin, be sure to talk to your doctor. He or she will tell you if and when to start taking those medicines again. Make sure that you understand exactly what your doctor wants you to do. If a biopsy was done during the test, your doctor may tell you not to take aspirin or other anti-inflammatory medicines for a few days. These include ibuprofen (Advil, Motrin) and naproxen (Aleve). If you have a sore throat the day after the procedure, use an dshx-voy-zmgsejp spray to numb your throat. Sucking on throat lozenges and gargling with warm salt water may also help relieve your symptoms. Other instructions For your safety, do not drive or operate machinery until the medicine wears off and you can think clearly. Your doctor may tell you not to drive or operate machinery until the day after your test. Do not sign legal documents or make major decisions until the medicine wears off and you can think clearly. The anesthesia can make it hard for you to fully understand what you are agreeing to. Additional Information for Sedation Patients For patients who received sedation: You may have received medications before and/or during your procedure which effects your judgement and reaction time. Do not drive, operate machinery, drink alcoholic beverages or make important decisions for 24 hours. Be careful on stairs as you may be unsteady on your feet. You may eat a regular diet as tolerated. Do not smoke if you are alone. IV site: Slight redness or tenderness is normal, you can use a warm compress if you would like. If tenderness and/or redness increase or if foul drainage occurs, please contact your Doctor. Please call [phone] before 8pm Mon-Fri with problems, questions or concerns. If you call after 8pm or on weekends, call the Hospital at [phone] and ask to speak to the Carpet Finishing Supervisor banjo repair person and the pony ride operator will contact that person for you. When should you call for help? Call 911 anytime you think you may need emergency care. For example, call if: You passed out (lost consciousness). You pass maroon or bloody stools. You have trouble breathing. Call your doctor now or seek immediate medical care if: You have pain that does not get better after you take pain medicine. You are sick to your stomach or cannot drink fluids. You have new or worse belly pain. You have blood in your stools. You have a fever. You cannot pass stools or gas. Watch closely for changes in your health, and be sure to contact your doctor if you have any problems. Where can you learn more? [facility] View your After Visit Summary and more online at [email or web address] If you would like to provide feedback about your hospital experience, please call the Office of Patient and Family Relations at . If you have received this After Visit Summary in error, please immediately return it in person to the department, or notify the [facility] Privacy Office by calling toll free at between the hours of 8AM and 5PM to arrange for our retrieval of the documents at no cost to you. Content Version: 12.2 ?? 4578-3694 [employer]. Care instructions adapted under license by [facility]. If you have questions about a medical condition or this instruction, always ask your healthcare professional. [employer] disclaims any warranty or liability for your use of this information.Endoscopic Ultrasound (Oral): What to Expect At Home Your Recovery After you have an endoscopic ultrasound--a test to look for problems in the stomach, liver, gallbladder, and other organs--you will stay at the hospital or clinic for 1 to 2 hours. This will allow the medicine to wear off. You will be able to go home after your doctor or nurse checks to make sure you are not having any problems. You may have a sore throat for a day or two after the test. This care sheet gives you a general idea about what to expect after the test. How can you care for yourself at home? Activity Rest when you feel tired. You can do your normal activities when it feels okay to do so. Diet Follow your doctor's directions for eating. Unless your doctor has told you not to, drink plenty of fluids. Do not drink alcohol. Medicines Your doctor will tell you if and when you can restart your medicines. He or she will also give you instructions about taking any new medicines. If you take blood thinners, such as warfarin (Coumadin), clopidogrel (Plavix), or aspirin, be sure to talk to your doctor. He or she will tell you if and when to start taking those medicines again. Make sure that you understand exactly what your doctor wants you to do. If a biopsy was done during the test, your doctor may tell you not to take aspirin or other anti-inflammatory medicines for a few days. These include ibuprofen (Advil, Motrin) and naproxen (Aleve). If you have a sore throat the day after the procedure, use an kftr-uwv-ymqjakj spray to numb your throat. Sucking on throat lozenges and gargling with warm salt water may also help relieve your symptoms. Other instructions For your safety, do not drive or operate machinery until the medicine wears off and you can think clearly. Your doctor may tell you not to drive or operate machinery until the day after your test. Do not sign legal documents or make major decisions until the medicine wears off and you can think clearly. The anesthesia can make it hard for you to fully understand what you are agreeing to. Additional Information for Sedation Patients For patients who received sedation: You may have received medications before and/or during your procedure which effects your judgement and reaction time. Do not drive, operate machinery, drink alcoholic beverages or make important decisions for 24 hours. Be careful on stairs as you may be unsteady on your feet. You may eat a regular diet as tolerated. Do not smoke if you are alone. IV site: Slight redness or tenderness is normal, you can use a warm compress if you would like. If tenderness and/or redness increase or if foul drainage occurs, please contact your Doctor. Please call [phone] before 8pm Mon-Fri with problems, questions or concerns. If you call after 8pm or on weekends, call the Hospital at [phone] and ask to speak to the Carpet Finishing Supervisor banjo repair person and the pony ride operator will contact that person for you. When should you call for help? Call 911 anytime you think you may need emergency care. For example, call if: You passed out (lost consciousness). You pass maroon or bloody stools. You have trouble breathing. Call your doctor now or seek immediate medical care if: You have pain that does not get better after you take pain medicine. You are sick to your stomach or cannot drink fluids. You have new or worse belly pain. You have blood in your stools. You have a fever. You cannot pass stools or gas. Watch closely for changes in your health, and be sure to contact your doctor if you have any problems. Where can you learn more? [facility] View your After Visit Summary and more online at [email or web address] If you would like to provide feedback about your hospital experience, please call the Office of Patient and Family Relations at . If you have received this After Visit Summary in error, please immediately return it in person to the department, or notify the [facility] Privacy Office by calling toll free at between the hours of 8AM and 5PM to arrange for our retrieval of the documents at no cost to you. Content Version: 12.2 ?? 3967-1567 [employer]. Care instructions adapted under license by [facility]. If you have questions about a medical condition or this instruction, always ask your healthcare professional. [employer] disclaims any warranty or liability for your use of this information. Future Appointments and Orders Future Appointments and Orders Future Appointments Provider Department Dept Phone 11/02/2023 10:30 AM Adrienne Singh PA Radiation Oncology at [facility] Arrive at: Home [phone] 11/30/2023 9:45 AM Adrienne Singh PA Radiation Oncology at [facility] Arrive at: Home [phone] 11/30/2023 10:30 AM [facility], ROOM Hematology Oncology at [facility] Arrive at: [facility] door at end of hallway [phone] Future Orders Complete By Expires Referral to Gastroenterology [REF25 Custom] As directed Process Instructions: If requesting a colonoscopy please use [id number] AMB REFERRAL TO COLONOSCOPY PROCEDURE. This referral request is for evaluation and treatment of gastrointestinal health concerns. Scheduling Instructions: Questions: My question or request is: Status post ERCP and EUS for pancreatic cancer Referral to Gastroenterology [REF25 Custom] As directed Process Instructions: If requesting a colonoscopy please use [id number] AMB REFERRAL TO COLONOSCOPY PROCEDURE. This referral request is for evaluation and treatment of gastrointestinal health concerns. Scheduling Instructions: Questions: My question or request is: See comment Referral to Hematology and Oncology [REF33 Custom] As directed Process Instructions: If no progress note charted, please enter Clinical details in comments. Scheduling Instructions: Questions: Referring to Hemophilia/thrombosis Clinic?: My question or request is: Pancreatic cancer Provider Contact Information: Jez Vance MD [facility] [phone] [facility] [address] Discharge References/Attachments: Discharge References/Attachments None documented in this encounter Discharge Instructions * Discharge Instructions* Alethea Barnes RN - 10/25/2023 4:36 PM EDT Endoscopic Retrograde Cholangiopancreatogram (ERCP): What to Expect at Home Your Recovery After you have an endoscopic retrograde cholangiopancreatogram (ERCP), you will be able to go home after your doctor or a nurse checks to make sure you are not having any problems. If you stay in thehospital overnight, you may go home the next day. You may have a sore throat for a day or two after the procedure. This care sheet gives you a general idea about how long it will take for you to recover. But each person recovers at a different pace. Follow the steps below to get better as quickly as possible. How can you care for yourself at home? Activity Rest when you feel tired. You can do your normal activities when it feels okay to do so. Diet Follow your doctor's directions for eating. Unless your doctor has told you not to, drink plenty of fluids. Do not drink alcohol. Medicines Your doctor will tell you if and when you can restart your medicines. He or she will also give you instructions about taking any new medicines. If you take blood thinners, such as warfarin (Coumadin), clopidogrel (Plavix), or aspirin, be sure to talk to your doctor. He or she will tell you if and when to start taking those medicines again. Make sure that you understand exactly what your doctor wants you to do. If a sphincterotomy was done during the test, your doctor may tell you not to take aspirin or otheranti-inflammatory medicines for a few days. These include ibuprofen (Advil, Motrin) and naproxen (Aleve). If you have a sore throat the day after the procedure, use an wxce-bth-tabukhs spray to numb your throat. Sucking on throat lozenges and gargling with warm salt water may also help relieve your symptoms. Other instructions For your safety, do not drive or operate machinery until the medicine wears off and you can think clearly. Your doctor may tell you not to drive or operate machinery until the day after your test. Do not sign legal documents or make major decisions until the medicine wears off and you can think clearly. The anesthesia can make it hard for you to fully understand what you are agreeing to. Additional Information for Sedation Patients For patients who received sedation: You may have received medications before and/or during your procedure which effects your judgement and reaction time. Do not drive, operate machinery, drink alcoholic beverages or make important decisions for 24 hours. Be careful on stairs as you may be unsteady on your feet. You may eat a regular diet as tolerated. Do not smoke if you are alone. IV site: Slight redness or tenderness is normal, you can use a warm compress if you would like. If tenderness and/or redness increase or if foul drainage occurs, please contact your Doctor. Please call [phone] before 8pm Mon-Fri with problems, questions or concerns. If you call after 8pm or on weekends, call the Hospital at [phone] and ask to speak to the Carpet Finishing Supervisor banjo repair person and the pony ride operator will contact that person for you. When should you call for help? Call [phone] anytime you think you may need emergency care. For example, call if: You passed out (lost consciousness). You pass maroon or bloody stools. You have trouble breathing. Call your doctor now or seek immediate medical care if: You have pain that does not get better after you take pain medicine. You are sick to your stomach or cannot drink fluids. You have new or worse belly pain. You have blood in your stools. You have a fever. You cannot pass stools or gas. Watch closely for changes in your health, and be sure to contact your doctor if you have any problems, like Where can you learn more? [facility] View your After Visit Summary and more online at [email or web address] If you would like to provide feedback about your hospital experience, please call the Office of Patient and Family Relations at . If you have received this After Visit Summary in error, please immediately return it in person to the department, or notify the [facility] Privacy Office by calling toll free at between the hours of 8AM and 5PM to arrange for our retrieval of the documents at no cost to you. Content Version: 12.2 ?? 0579-2118 [employer]. Care instructions adapted under license by [facility]. If you have questions about a medical condition or this instruction, always ask your healthcare professional. [employer] disclaims any warranty or liability for your use of this information.Endoscopic Ultrasound (Oral): What to Expect At Home Your Recovery After you have an endoscopic ultrasound--a test to look for problems in the stomach, liver, gallbladder, and other organs--you will stay at the hospital or clinic for 1 to 2 hours. This will allow the medicine to wear off. You will be able to go home after your doctor or nurse checks to make sure you are not having any problems. You may have a sore throat for a day or two after the test. This care sheet gives you a general idea about what to expect after the test. How can you care for yourself at home? Activity Rest when you feel tired. You can do your normal activities when it feels okay to do so. Diet Follow your doctor's directions for eating. Unless your doctor has told you not to, drink plenty of fluids. Do not drink alcohol. Medicines Your doctor will tell you if and when you can restart your medicines. He or she will also give you instructions about taking any new medicines. If you take blood thinners, such as warfarin (Coumadin), clopidogrel (Plavix), or aspirin, be sure to talk to your doctor. He or she will tell you if and when to start taking those medicines again. Make sure that you understand exactly what your doctor wants you to do. If a biopsy was done during the test, your doctor may tell you not to take aspirin or other anti-inflammatory medicines for a few days. These include ibuprofen (Advil, Motrin) and naproxen (Aleve). If you have a sore throat the day after the procedure, use an eklt-dgg-cxjojmv spray to numb your throat. Sucking on throat lozenges and gargling with warm salt water may also help relieve your symptoms. Other instructions For your safety, do not drive or operate machinery until the medicine wears off and you can think clearly. Your doctor may tell you not to drive or operate machinery until the day after your test. Do not sign legal documents or make major decisions until the medicine wears off and you can think clearly. The anesthesia can make it hard for you to fully understand what you are agreeing to. Additional Information for Sedation Patients For patients who received sedation: You may have received medications before and/or during your procedure which effects your judgement and reaction time. Do not drive, operate machinery, drink alcoholic beverages or make important decisions for 24 hours. Be careful on stairs as you may be unsteady on your feet. You may eat a regular diet as tolerated. Do not smoke if you are alone. IV site: Slight redness or tenderness is normal, you can use a warm compress if you would like. If tenderness and/or redness increase or if foul drainage occurs, please contact your Doctor. Please call [phone] before 8pm Mon-Fri with problems, questions or concerns. If you call after 8pm or on weekends, call the Hospital at [phone] and ask to speak to the Carpet Finishing Supervisor banjo repair person and the pony ride operator will contact that person for you. When should you call for help? Call [phone] anytime you think you may need emergency care. For example, call if: You passed out (lost consciousness). You pass maroon or bloody stools. You have trouble breathing. Call your doctor now or seek immediate medical care if: You have pain that does not get better after you take pain medicine. You are sick to your stomach or cannot drink fluids. You have new or worse belly pain. You have blood in your stools. You have a fever. You cannot pass stools or gas. Watch closely for changes in your health, and be sure to contact your doctor if you have any problems. Where can you learn more? [facility] View your After Visit Summary and more online at [email or web address] If you would like to provide feedback about your hospital experience, please call the Office of Patient and Family Relations at . If you have received this After Visit Summary in error, please immediately return it in person to the department, or notify the [facility] Privacy Office by calling toll free at between the hours of 8AM and 5PM to arrange for our retrieval of the documents at no cost to you. Content Version: 12.2 ?? 3846-9037 [employer]. Care instructions adapted under license by [facility]. If you have questions about a medical condition or this instruction, always ask your healthcare professional. [employer] disclaims any warranty or liability for your use of this information.Endoscopic Ultrasound (Oral): What to Expect At Home Your Recovery After you have an endoscopic ultrasound--a test to look for problems in the stomach, liver, gallbladder, and other organs--you will stay at the hospital or clinic for 1 to 2 hours. This will allow the medicine to wear off. You will be able to go home after your doctor or nurse checks to make sure you are not having any problems. You may have a sore throat for a day or two after the test. This care sheet gives you a general idea about what to expect after the test. How can you care for yourself at home? Activity Rest when you feel tired. You can do your normal activities when it feels okay to do so. Diet Follow your doctor's directions for eating. Unless your doctor has told you not to, drink plenty of fluids. Do not drink alcohol. Medicines Your doctor will tell you if and when you can restart your medicines. He or she will also give you instructions about taking any new medicines. If you take blood thinners, such as warfarin (Coumadin), clopidogrel (Plavix), or aspirin, be sure to talk to your doctor. He or she will tell you if and when to start taking those medicines again. Make sure that you understand exactly what your doctor wants you to do. If a biopsy was done during the test, your doctor may tell you not to take aspirin or other anti-inflammatory medicines for a few days. These include ibuprofen (Advil, Motrin) and naproxen (Aleve). If you have a sore throat the day after the procedure, use an bgyp-gpi-znfaqbc spray to numb your throat. Sucking on throat lozenges and gargling with warm salt water may also help relieve your symptoms. Other instructions For your safety, do not drive or operate machinery until the medicine wears off and you can think clearly. Your doctor may tell you not to drive or operate machinery until the day after your test. Do not sign legal documents or make major decisions until the medicine wears off and you can think clearly. The anesthesia can make it hard for you to fully understand what you are agreeing to. Additional Information for Sedation Patients For patients who received sedation: You may have received medications before and/or during your procedure which effects your judgement and reaction time. Do not drive, operate machinery, drink alcoholic beverages or make important decisions for 24 hours. Be careful on stairs as you may be unsteady on your feet. You may eat a regular diet as tolerated. Do not smoke if you are alone. IV site: Slight redness or tenderness is normal, you can use a warm compress if you would like. If tenderness and/or redness increase or if foul drainage occurs, please contact your Doctor. Please call [phone] before 8pm Mon-Fri with problems, questions or concerns. If you call after 8pm or on weekends, call the Hospital at [phone] and ask to speak to the Carpet Finishing Supervisor banjo repair person and the pony ride operator will contact that person for you. When should you call for help? Call [phone] anytime you think you may need emergency care. For example, call if: You passed out (lost consciousness). You pass maroon or bloody stools. You have trouble breathing. Call your doctor now or seek immediate medical care if: You have pain that does not get better after you take pain medicine. You are sick to your stomach or cannot drink fluids. You have new or worse belly pain. You have blood in your stools. You have a fever. You cannot pass stools or gas. Watch closely for changes in your health, and be sure to contact your doctor if you have any problems. Where can you learn more? [facility] View your After Visit Summary and more online at [email or web address] If you would like to provide feedback about your hospital experience, please call the Office of Patient and Family Relations at . If you have received this After Visit Summary in error, please immediately return it in person to the department, or notify the [facility] Privacy Office by calling toll free at between the hours of 8AM and 5PM to arrange for our retrieval of the documents at no cost to you. Content Version: 12.2 ?? 2609-1329 [employer]. Care instructions adapted under license by [facility]. If you have questions about a medical condition or this instruction, always ask your healthcare professional. [employer] disclaims any warranty or liability for your use of this information. * Patient Instructions* Ros Gonzáles MD - 10/27/2023 9:36 AM EDT Instructions on Discharge to Home Dear Mr. Zurita, you initially came to our hospital in the context of nausea, jaundice, pruritus, vomiting. You are found to have a low potassium. We gave you some potassium, gave you IV fluids and now you feel better. Our GI team was also able to do a procedure (ERCP and stenting +EUS). Now he feels better and we are discharging you home today with following recommendation - You need to follow-up with your primary care doctor within 2-3 weeks of discharge from the hospital - Our GI team will give you a call to schedule an appointment as you need to follow-up with them outpatient - You have an appointment with radiation oncology on 11/02/2023 - We did not give you your blood pressure medications while you were in the hospital because you are blood pressure was fairly controlled. - You can check your blood pressure at home and restart your losartan 50 mg nightly if your blood pressure is more than 140/90 mmHg - We would prefer if you can hold your hydrochlorothiazide (as it can cause low potassium) - Continue rest of the medication as before - Our oncology team had reached out to the [facility] ([facility]) New Patient schedulers to keep an eye out for you. GI will call you to schedule a follow up Call your doctor or seek medical attention if you develop the following - chest pain, shortness of breath, fever, cough, weakness in an arm or leg Activity level - no restrictions Diet - no change in previous diet Driving - as before hospitalization Shower/Bath - permitted Wound Care - none Home Oxygen therapy -none Changes in Your Medications: New Medications: None Medication dose changes: None Stop these medications:Hydrochlorothiazide Follow-up: Future Appointments Date Time Provider Department Center 11/02/2023 10:30 AM Adrienne Singh PA [facility] 11/30/2023 9:45 AM Adrienne Singh PA [facility] 11/30/2023 10:30 AM [facility]ION, ROOM [facility] Your Inpatient Doctor: Ros Gonzáles MD Your Primary Care Provider: Jez Vance MD [phone] For questions regarding this document or issues relating to this hospitalization on the Medical Service, please contact your inpatient physician through the [facility] Marine Tower Operator . Issues afterhours and on weekends will be handled by the Hospitalist staff on-call. documented in this encounter Medications at Time of Discharge Medication Sig Dispensed Refills Start Date End Date tamsulosin (Flomax) 0.4 mg capsule Take 1 [...] 8 hours as needed for Pain. 09/02/2005 polyethylene glycoL (Miralax) 17 gram oral powder packet Take 17 g by mouth daily. 14 each 10/28/2023 11/09/2023 senna-docusate (Pericolace) 8.6-50 mg Tablet Take 2 tablets by mouth 2 times daily. 60 tablet 11 10/27/2023 11/09/2023 documented as of this encounter Progress Notes * Rosemary Guzmán RN - 10/27/2023 3:11 PM EDT Pt is A&Ox4 with VSS on RA. Magnesium Sulfate infusion ordered and administered per APR. Dulcolax suppository ordered and administered. Pt successfully had BM after suppository. Pt's IV was removed. Pt's home medications were returned to him. Reviewed pt belongings that he had upon admission and pt verbally stated he was in possession of everything. Reviewed After Visit Summary with Patient and his . They wanted to know where their Rx was called in to. I confirmed the location and they were satisfied. Pt was wheeled out of the unit by a unit CREDIT RISK OFFICER. Pt is discharged to his home and is traveling there in his personal car driven by his . * Ros Gonzáles MD - 10/27/2023 1:56 PM EDT Patient Name: Benny Zurita Patient Age: 83 y.o. Birthdate: 1940 Admit date: 10/23/2023 Attending Physician: Ros Gonzáles MD Hospital Medicine - Attending Day of Discharge Documentation Discharge diagnosis Active Hospital Problems Diagnosis Hypokalemia Painless jaundice Resolved Hospital Problems No resolved problems to display. Secondary Issues Active Non-Hospital Problems Diagnosis Malignant neoplasm of prostate I have personally seen and examined the patient and they are ready for discharge. Select the appropriate statement that describes your involvement and care and omit the other: I spent >30 minutes (Day of Discharge Code 95282) involved in the final examination of the patient, discussion of the hospital stay, instructions for continuing care to all relevant caregivers, and preparation of discharge records, prescriptions and referral forms. Plans Discharge to home Follow-up scheduled with radiation oncology. Patient needs to follow-up with GI, medical oncology. They will call him to schedule an appointment. Please see the Discharge Summary for complete details of any medication changes and additional plans. * Rosemary Guzmán RN - 10/26/2023 8:13 PM EDT Patient Summary Reason for admission: Cholestatic liver disease - presents with one month of jaundice, fatigue, nausea, pruritus and recent diagnosis of pancreaticmass. Relevant PMH: HTN, HLD, mild asthma, and prostate cancer on Lupron Significant 24 hour events: 9/10AM: A/Ox4, VSS on RA. Patient independent in room. Pt's clear diet transitioned to Reg Diet. Senna and Miralax ordered. Potassium Chloride and Senna administered per APR. Consult to oncology. Patient rested in between patient care. 10/24 PM: Received patient in bed, AAOX4, respirations unlabored on room air. Call light within reach, instructed to call for assistance when needed. One dose PRN Toradol given for pain, good results. One dose PRN oxycodone given for pain, good result. MD was contacted this morning to be notified on p[patient's magnesium level today 0.65, new order received. Patient rested in between patient care. Action List Monitor electrolytes Follow pathology results Pain management ( Toradol, oxycodone) Discharge Plan: home Tomorrow 10/26 * Aleida Parrish RN - 10/26/2023 4:06 PM EDT Physician Certification Statement for Non-Emergency Ambulance Services Section I - General Information Benny Zurita 1940 Medicare Number: [id number] Transport Date: 10/26/2023 (PCS is valid for round trips on this date and for all repetitive trips in the 60-day range as noted below.) Origin: [address] Destination: [facility] Is the patient's stay covered under Medicare Part A (PPS/DRG)?: Yes Closest appropriate facility? Yes Transfer Type: Acute to Acute Section II - Medical Necessity Questionnaire Ambulance Transportation is medically necessary only if other means of transport are contraindicated or would be potentially harmful to the patient. To meet this requirement, the patient must be either bed confined or suffer from a condition such that transport by means other than ambulance is contraindicated by the patient's condition. The following questions must be answered by the medical professional signing below for this form to be valid: 1) Describe the MEDICAL CONDITION (physical and/or mental) of this patient AT THE TIME OF AMBULANCETRANSPORT that requires the patient to be transported in an ambulance and why transport by other means is contraindicated by the patient's condition: 83 y.o. year old male with HTN, HLD, mild asthma,and prostate cancer on Lupron who presents with one month of jaundice, fatigue, nausea, pruritus and recent diagnosis of pancreatic mass 2) Is the patient bed confined as defined below? No To be bed confined the patient must satisfy all three of the following conditions: - unable to get up from bed without assistance AND unable to ambulate AND unable to sit in a chair or wheelchair. 3) Can this patient safely be transported by car or wheelchair van (i.e. seated during transport, without medical research tech or monitoring?): No 4) In addition to complete questions 1-3 above, please select any of the following conditions that apply: *Note: supporting documentation for any boxes checked must be maintained in the patient's medical records Acute to acute transfer Section III - Signature of Physician or Healthcare Professional I certify that the above information is true and correct based on my evaluation of this patient, and represent that the patient requires transport by ambulance and that other forms of transport are contraindicated. I understand that this information will be used by the Centers of Medicare and Medicaid Services (CMS) to support the determination of medical necessity for ambulance services, and I represent that I have personal knowledge of the patient's condition at the time of transport. Aleida Parrish RN 10/26/23 Form was electronically signed and dated by the patient's Physician or Healthcare Professional *Form must be signed only by patient's attending physician for scheduled, repetitive transports. 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 ROS: Otherwise negative Active Hospital Problems Diagnosis Hypokalemia Painless jaundice Resolved Hospital Problems No resolved problems to display. PMH Active Non-Hospital Problems Diagnosis Malignant neoplasm of prostate Inpatient Medications: Scheduled senna-docusate 2 tablet Oral BID polyethylene glycoL (MIRALAX) oral powder 17 g Oral Daily montelukast 5 mg Oral Nightly enoxaparin 40 mg Subcutaneous Nightly tamsulosin 0.4 mg Oral Nightly Continuous infusions: PRN: oxyCODONE, ketorolac, melatonin, ondansetron ODT OR ondansetron Objective Physical Exam Vitals Range last 24 hrs Temperature Temp: [36.4 ??C (97.5 ??F)-36.9 ??C (98.4 ??F)] Heart Rate Heart Rate: [49-55] Blood Pressure BP: (104-143)/(37-88) Respiratory Rate Resp: [16-18] SpO2 SpO2: [89 %-100 %] Patient Vitals for the past 24 hrs: Temp Heart Rate From SP02 Pulse Resp BP SpO2 O2 Flow Rate (L/min) O2 Device 10/25/23 1323 -- -- -- -- -- -- -- RA 10/25/23 1337 36.7 ??C (98.1 ??F) -- 55 16 143/51 96 % -- RA 10/25/23 1632 36.4 ??C (97.5 ??F) 69 bpm -- 18 (!) 116/37 (!) 89 % 6 L/min Simple mask 10/25/23 1635 -- 52 bpm -- 18 104/53 100 % -- RA 10/25/23 1640 -- 51 bpm -- 18 114/56 (!) 89 % -- -- 10/25/23 1650 -- 51 bpm -- 18 117/52 99 % -- -- 10/25/23 1700 -- 50 bpm -- 16 109/88 96 % -- -- 10/25/23 1710 -- 52 bpm -- 16 118/63 99 % -- -- 10/25/23 1734 36.6 ??C (97.9 ??F) (!) 48 bpm (!) 49 16 143/57 96 % -- RA 10/25/23 1935 36.8 ??C (98.2 ??F) 60 bpm -- 18 131/71 98 % -- RA 10/26/23 0402 36.9 ??C (98.4 ??F) 54 bpm -- 18 137/63 98 % -- RA Intake/Output Summary (Last 24 hours) at 10/26/2023 1314 Last data filed at 10/26/2023 0800 Gross per 24 hour Intake 1040 ml Output 650 ml Net 390 ml Physical Exam Constitutional: General: He is not in acute distress. Cardiovascular: Rate and Rhythm: Normal rate. Rhythm irregular. Pulmonary: Effort: Pulmonary effort is normal. No respiratory distress. Breath sounds: Normal breath sounds. Abdominal: General: There is no distension. Palpations: Abdomen is soft. Tenderness: There is no abdominal tenderness. There is no guarding. Skin: Coloration: Skin is jaundiced. Neurological: General: No focal deficit present. Mental Status: He is alert and oriented to person, place, and time. Studies reviewed in eDH. Remarkable for the following: LABS: Lab Results Component Value Date WBC 7.51 10/26/2023 HGB 12.2 (L) 10/26/2023 HCT 35.2 (L) 10/26/2023 MCV 92.9 10/26/2023 PLATELET 210 10/26/2023 Lab Results Component Value Date NA 131 (L) 10/26/2023 NA 136 07/01/2023 K 3.6 10/26/2023 K 3.7 07/01/2023 CL 94 (L) 10/26/2023 CL 99 07/01/2023 CO2 24 10/26/2023 CO2 29 07/01/2023 BUN 19 10/26/2023 BUN 15 07/01/2023 CREATININE 0.69 (L) 10/26/2023 CREATININE 0.70 07/01/2023 GLUCOSE 136 10/26/2023 GLUCFASTING 106 07/01/2023 CALCIUM 8.7 10/26/2023 CALCIUM 9.1 07/01/2023 ESTGFR 93 07/01/2023 MICRO: No results for input(s): URINECULTURE in the last 720 hours. No results for input(s): GRAMSTAIN, BFCX, LOWERRESPCX, TISSUECX in the last 720 hours. No results for input(s): BLOODCX in the last 720 hours. ECG: Recent Labs 10/23/23 1340 DIAGLINE Sinus bradycardia with marked sinus arrhythmia Left anterior fascicular block Left ventricular hypertrophy with QRS widening ( R in aVL , [place] product ) Possible Lateral infarct , age undetermined Abnormal ECG No previous ECGs available Confirmed by Devon Leo MD ([id number]) on 10/24/2023 2:23:18 PM QTCCALC 457 IMAGING: CT A/P IMPRESSION 1. Hypodense pancreatic head mass concerning for pancreatic neoplasm, causing marked obstruction intrahepatic and extrahepatic biliary dilatation as well as main pancreatic duct dilatation. 2. No evidence of metastatic disease in abdomen or pelvis or lymphadenopathy 3. See above for other ancillary findings OTHER Studies: Assessment & Plan Assessment and Plan: Benny Zurita is a 83 y.o. year old male with prostate cancer (on Lupron), HTN, HLD, mild asthma and recent finding of pancreatic mass who presents with weakness and nausea and found to have severehypokalemia. # Hypokalemia likely secondary to nausea/vomiting, improved Plan: - Daily BMP - Continue to Hold HCTZ, blood pressure fairly stable - Cardiac monitoring # Pancreatic mass # Obstructive jaundice # Hyperbilirubinemia # Elevated transaminases # Marked intrahepatic/extrahepatic biliary dilatation # Pancreatic duct dilatation # Likely malignant biliary obstruction -Patient has one month of painless obstructive jaundice with CT scan showing pancreatic head mass concerning for malignant obstruction. -Patient almost certainly with new dx of pancreatic cancer. GI already consulted by the ED. 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 Also hold home statin given his LFT's. Plan: - Continue to hold HCTZ and losartan, blood pressure well-controlled - Continue to hold statin # Asthma, not in exacerbation -Continue home dose of Singulair # Bundle FENGI: Regular diet DVT Prophylaxis: LMWH LDA: PIV Anticipated Disposition: home Code Status: Attempt Cardiopulmonary Resuscitation - Inpatient Attestation: IPI Certification I certify that I am a D-H credentialed attending provider with admitting privileges and that the patient meets or has met medical necessity to require an inpatient IPI level of care meeting a minimumof two midnights or is on the [facility] inpatient only procedure list (status C) due to: severe hypokalemia and pancreatic mass requiring EUS/ERCP Team Pager(MD Coverage 07/09): #[phone] PCP: Jez Vance MD [phone] Ros Gonzáles MD 10/26/2023 * Vanesa Vance RN - 10/26/2023 6:30 AM EDT Patient Summary Reason for admission: Cholestatic liver disease - presents with one month of jaundice, fatigue, nausea, pruritus and recent diagnosis of pancreaticmass. Relevant PMH: HTN, HLD, mild asthma, and prostate cancer on Lupron Significant 24 hour events: 10/24 PM: Received patient in bed, AAOX4, respirations unlabored on room air. Call light within reach, instructed to call for assistance when needed. One dose PRN Toradol given for pain, good results. One dose PRN oxycodone given for pain, good result. was contacted this morning to be notified on p[patient's magnesium level today 0.65, new order received. Patient rested in between patient care. Action List Monitor electrolytes Follow pathology results Pain management ( Toradol, oxycodone) Discharge Plan: home * Felicity Potts MD - 10/26/2023 6:19 AM EDT Images from the original note were not included. DIVISION OF GASTROENTEROLOGY & HEPATOLOGY CONSULT PROGRESS NOTE REQUESTING PROVIDER: Ros Gonzáles MD NAME: Benny Zurita : 1940 HPI: Benny Zurita 83 y.o. male with HTN, HLD, mild asthma, and prostate cancer on Lupron who presentswith one month of jaundice, fatigue, nausea, pruritus and recent diagnosis of pancreatic mass. INTERVAL: - EUS ERCP w/ 1.4cm mass in head of pancreas s/p FNB and malignant distal biliary stricture s/p placement of FCSEMS - Afebrile, HDS - Labs: Tbili 8.5 --> 3.6, alk phos ALT AST largely unchanged - Some mild residual pain ROS: 10-system ROS negative other than that noted above PAST MEDICAL: Past Medical History: Diagnosis Date HTN (hypertension) Hyperlipidemia Prostate cancer PAST SURGICAL HX: Past Surgical History: Procedure Laterality Date PROSTATE BIOPSY ROTATOR CUFF REPAIR Bilateral SOCIAL HX: Social History Socioeconomic History Marital status: Spouse name: Not on file Number of children: Not on file Years of education: Not on file Highest education level: Not on file Occupational History Not on file Tobacco Use Smoking status: Never Smokeless tobacco: Never Vaping Use Vaping status: Never Used Substance and Sexual Activity Alcohol use: Yes Alcohol/week: 1.0 standard drink of alcohol Types: 1 Glasses of wine per week Comment: social drinker once a month Drug use: Never Sexual activity: Yes Partners: Female Other Topics Concern Not on file Social History Narrative Not on file Social Determinants of Health Financial Resource Strain: Low Risk (08/06/2022) Overall Financial Resource Strain (CARDIA) Difficulty of Paying Living Expenses: Not hard at all Food Insecurity: No Food Insecurity (10/25/2023) Hunger Vital Sign Worried About Running Out of Food in the Last Year: Never true Ran Out of Food in the Last Year: Never true Transportation Needs: No Transportation Needs (10/25/2023) PRAPARE - Transportation Lack of Transportation (Medical): No Lack of Transportation (Non-Medical): No Physical Activity: Not on file Intimate Partner Violence: Not At Risk (10/23/2023) DH IPV Inpatient Questions Prevent Contact with Others: no Feels Threatened by Someone: no Feels Unsafe at Home: no Physical Signs of Abuse Present: no Housing Stability: Low Risk (10/25/2023) Housing Stability Vital Sign Unable to Pay for Housing in the Last Year: No Number of Times Moved in the Last Year: 1 Homeless in the Last Year: No FAMILY HX: Family History Problem Relation Age of Onset Prostate Cancer Father 83 Heart Disease Father MEDICATIONS Medication list personally reviewed Home Meds: Medications Prior to Admission Medication Sig Dispense Refill Last Dose tamsulosin (Flomax) 0.4 mg capsule Take 1 capsule by mouth daily. (Patient taking differently: Take0.4 mg by mouth every evening.) 90 tablet 3 10/22/2023 simvastatin (Zocor) 10 mg tablet Take 20 mg by mouth daily. 10/23/2023 losartan potassium (COZAAR ORAL) Take 50 mg by mouth nightly. 10/22/2023 hydroCHLOROthiazide (Hydrodiuril) 25 mg tablet Take 25 mg by mouth daily. Indications: high blood pressure 10/23/2023 montelukast (SINGULAIR) 10 mg tablet Take 5 mg by mouth nightly. 10/22/2023 ibuprofen (ADVIL;MOTRIN) 600 mg tablet Take 600 mg by mouth every 8 hours as needed for Pain. Past Week [DISCONTINUED] tadalafiL (Cialis) 5 mg tablet Take 5 mg by mouth as needed. More than a month Current Meds: Scheduled: montelukast 5 mg Oral Nightly enoxaparin 40 mg Subcutaneous Nightly tamsulosin 0.4 mg Oral Nightly Drips: lactated Ringers 100 mL/hr (10/25/23 1343) PRN: melatonin, ondansetron ODT OR ondansetron Allergies: No Known Allergies OBJECTIVE Vitals: T Temp: [36.4 ??C (97.5 ??F)-36.7 ??C (98.1 ??F)] HR Heart Rate: [49-66] BP BP: (104-143)/(37-88) RR Resp: [16-18] SpO2 SpO2: [89 %-100 %] 10/23 700 - 10/24 699 In: 1620 [P.O.:1620] Out: 1150 [Urine:1150] Wt Last 83.9 kg (185 lb) Admit 85.28 kg Physical Exam: Gen: No acute distress, resting comfortably in bed. Jaundice HEENT: PERRLA, EOMI, mild icterus CHEST: regular respiratory effort Abd: Soft, non-tender, non-distended. No guarding or rebound. Ext: No pedal edema. No gross abnormalities. Neuro: Cranially nerves intact. Moving all four extremities. AAOx3 Labs: Labs personally reviewed in eDH CBC: Recent Labs 10/25/2335210/24/2341010/23/23 1232 WBC 4.52 5.21 4.60 HGB 12.2* 12.3* 13.1* PLATELET 193 204 233 MCV 90.7 89.7 90.5 RDWCV 13.9* 13.4 13.2 CHEM: Recent Labs 10/25/23 0353 10/24/23 16110/24/23 04110/23/23 16210/23/23 1232 CREATININE 0.70* 0.68* 0.80 0.85 0.79* BUN 20 17 17 16 17 NA 131* 131* 133* 134* 130* K 3.7 3.5 3.9 2.9* 2.9* CL 97* 94* 99 94* 92* CO2 22 26 22 24 MAGNESIUM -- -- -- 0.76 -- CALCIUM 8.8 9.0 8.8 9.1 9.1 HEPATIC: Recent Labs 10/25/23 0353 10/24/23 04110/23/23 1232 BILITOT 8.5* 7.8* 8.6* ALKPHOS 366* 359* 375* AST 190* 224* 258* ALT 458* 498* 577* ALBUMIN 3.3 3.4 3.8 LIPASE -- -- 49 IMAGING: Reports and images personally reviewed in eDH. Images independently interpreted. XR ERCP Final Result CT Chest w Contrast Final Result No metastatic disease in the chest. Thank you for letting us participate in the care of this patient. If you are a health care provider and have any questions regarding this report, please contact the number below. For patients who have questions please contact the health healthcare sales representative that requested your imaging first. Electronically signed by: Mariam Johnson MD, [facility] ([phone]), at 10/24/2023 5:[address] Abdomen & Pelvis w Contrast Final Result 1. Hypodense pancreatic head mass concerning for pancreatic neoplasm, causing marked obstruction intrahepatic and extrahepatic biliary dilatation as well as main pancreatic duct dilatation. 2. No evidence of metastatic disease in abdomen or pelvis or lymphadenopathy 3. See above for other ancillary findings Thank you for letting us participate in the care of this patient. If you are a health care provider and have any questions regarding this report, please contact the number below. For patients who have questions please contact the health healthcare sales representative that requested your imaging first. Electronically signed by: Davy Sinclair MD, [facility] ([phone]), at 10/23/2023 1:26 PM ENDOSCOPY: Reports and images personally reviewed in [facility] OSH RECORDS: Obtained and personally reviewed ASSESSMENT & PLAN: 83 y.o. male with HTN, HLD, mild asthma, and prostate cancer on Lupron who presents with one month of painless obstructive jaundice with CT scan showing pancreatic head mass concerning for malignant obstruction. Now s/p EUS w/FNB and ERCP w/placement of metal stent for malignant obstruction. Afebrile, HDS and labs trending down nicely. Would advance diet as tolerated, and discussed we will be in touch with path results to determine next steps. We will sign off please call or page if questions. Recommendations: - Trend LFTs - Advance diet as tolerated - Await path Patient seen and discussed with Dr. Angeles Potts MD PGY6 Gastroenterology Associated attestation - Andrew Reynoso MD - 10/26/2023 10:48 AM EDT I have reviewed note as detailed by Dr. Potts. The contents including physical exam, assessment, and recommendation reflect my own impressions. Mr. Zapata report some abdominal pain which is not unexpected. He is well- appearing and tolerating clear liquids. LFTs responding to stenting as expected. Once tolerating a diet, reasonable for discharge. I will contact Mr. Zapata with path results once available and arrange for referrals. * Ros Gonzáles MD - 10/25/2023 6:33 PM EDT [facility] Medicine Attending Daily Progress Note Admit Date: 10/23/2023 Hospital Day 2 days Subjective Interval History: No acute events Does not have any subjective issues. Patient feels great. Patient was happy when we said that he isgoing to get the procedure today ROS: Otherwise negative Active Hospital Problems Diagnosis Hypokalemia Painless jaundice Resolved Hospital Problems No resolved problems to display. PMH Active Non-Hospital Problems Diagnosis Malignant neoplasm of prostate Inpatient Medications: Scheduled montelukast 5 mg Oral Nightly enoxaparin 40 mg Subcutaneous Nightly tamsulosin 0.4 mg Oral Nightly Continuous infusions: lactated Ringers 100 mL/hr (10/25/23 1343) PRN: oxyCODONE, ketorolac, melatonin, ondansetron ODT OR ondansetron Objective Physical Exam Vitals Range last 24 hrs Temperature Temp: [36.4 ??C (97.5 ??F)-36.7 ??C (98.1 ??F)] Heart Rate Heart Rate: [49-66] Blood Pressure BP: (104-143)/(37-88) Respiratory Rate Resp: [16-18] SpO2 SpO2: [89 %-100 %] Patient Vitals for the past 24 hrs: Temp Heart Rate From SP02 Pulse Resp BP SpO2 O2 Flow Rate (L/min) O2 Device 10/24/231948 36.6 ??C (97.9 ??F) (!) 46 bpm -- 18 117/56 98 % -- 10/25/23 0820 36.5 ??C (97.7 ??F) 63 bpm 66 18 104/71 98 % -- 10/25/23 1323 -- -- -- -- -- -- -- 10/25/23 1337 36.7 ??C (98.1 ??F) -- 55 16 143/51 96 % -- RA 10/25/23 1632 36.4 ??C (97.5 ??F) 69 bpm -- 18 (!) 116/37 (!) 89 % 6 L/min Simple mask 10/25/23 1635 -- 52 bpm -- 18 104/53 100 % -- RA 10/25/23 1640 -- 51 bpm -- 18 114/56 (!) 89 % -- -- 10/25/23 1650 -- 51 bpm -- 18 117/52 99 % -- -- 10/25/23 1700 -- 50 bpm -- 16 109/88 96 % -- -- 10/25/23 1710 -- 52 bpm -- 16 118/63 99 % -- -- 10/25/23 1734 36.6 ??C (97.9 ??F) (!) 48 bpm (!) 49 16 143/57 96 % -- RA Intake/Output Summary (Last 24 hours) at 10/25/2023 1833 Last data filed at 10/25/2023 1622 Gross per 24 hour Intake 920 ml Output 850 ml Net 70 ml Physical Exam Constitutional: General: He is not in acute distress. Cardiovascular: Rate and Rhythm: Normal rate. Rhythm irregular. Pulmonary: Effort: Pulmonary effort is normal. No respiratory distress. Breath sounds: Normal breath sounds. Abdominal: General: There is no distension. Palpations: Abdomen is soft. Tenderness: There is no abdominal tenderness. There is no guarding. Skin: Coloration: Skin is jaundiced. Neurological: General: No focal deficit present. Mental Status: He is alert and oriented to person, place, and time. Studies reviewed in eDH. Remarkable for the following: LABS: Lab Results Component Value Date WBC 4.52 10/25/2023 HGB 12.2 (L) 10/25/2023 HCT 34.1 (L) 10/25/2023 MCV 90.7 10/25/2023 PLATELET 193 10/25/2023 Lab Results Component Value Date NA 131 (L) 10/25/2023 NA 136 07/01/2023 K 3.7 10/25/2023 K 3.7 07/01/2023 CL 97 (L) 10/25/2023 CL 99 07/01/2023 CO2 22 10/25/2023 CO2 29 07/01/2023 BUN 20 10/25/2023 BUN 15 07/01/2023 CREATININE 0.70 (L) 10/25/2023 CREATININE 0.70 07/01/2023 GLUCOSE 121 10/25/2023 GLUCFASTING 106 07/01/2023 CALCIUM 8.8 10/25/2023 CALCIUM 9.1 07/01/2023 ESTGFR 93 07/01/2023 MICRO: No results for input(s): URINECULTURE in the last 720 hours. No results for input(s): GRAMSTAIN, BFCX, LOWERRESPCX, TISSUECX in the last 720 hours. No results for input(s): BLOODCX in the last 720 hours. ECG: Recent Labs 10/23/23 1340 DIAGLINE Sinus bradycardia with marked sinus arrhythmia Left anterior fascicular block Left ventricular hypertrophy with QRS widening ( R in aVL , [place] product ) Possible Lateral infarct , age undetermined Abnormal ECG No previous ECGs available Confirmed by Devon Leo MD ([id number]) on 10/24/2023 2:23:18 PM QTCCALC 457 IMAGING: CT A/P IMPRESSION 1. Hypodense pancreatic head mass concerning for pancreatic neoplasm, causing marked obstruction intrahepatic and extrahepatic biliary dilatation as well as main pancreatic duct dilatation. 2. No evidence of metastatic disease in abdomen or pelvis or lymphadenopathy 3. See above for other ancillary findings OTHER Studies: Assessment & Plan Assessment and Plan: Benny Zurita is a 83 y.o. year old male with prostate cancer (on Lupron), HTN, HLD, mild asthma and recent finding of pancreatic mass who presents with weakness and nausea and found to have severehypokalemia. # Hypokalemia, improved Plan: - Daily BMP - Continue to Hold HCTZ - Cardiac monitoring # Pancreatic mass # Obstructive jaundice # Hyperbilirubinemia # Elevated transaminases # Marked intrahepatic/extrahepatic biliary dilatation # Pancreatic duct dilatation # Likely malignant biliary obstruction Patient almost certainly with new dx of pancreatic cancer. GI already consulted by the ED. 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 Also hold home statin given his LFT's. Plan: - Continue to hold HCTZ and losartan - Continue to hold statin # Asthma, not in exacerbation -Continue home dose of Singulair # Bundle FENGI: Clear Liquid DVT Prophylaxis: LMWH LDA: PIV Anticipated Disposition: home Code Status: Attempt Cardiopulmonary Resuscitation - Inpatient Attestation: IPI Certification I certify that I am a D-H credentialed attending provider with admitting privileges and that the patient meets or has met medical necessity to require an inpatient IPI level of care meeting a minimumof two midnights or is on the [facility] inpatient only procedure list (status C) due to: severe hypokalemia and pancreatic mass requiring EUS/ERCP Team Pager(MD Coverage 07/09): #[phone] PCP: Jez Vance MD [phone] Ros Gonzáles MD 10/25/2023 * Alethea Barnes RN - 10/25/2023 5:27 PM EDT Pt infusion LR stopped, IV saline lock flushed after 50 mg fentanyl given per Dr. Reynoso. Pt returned to floor. * Debbie Maxwell RD - 10/25/2023 12:25 PM EDT Nutrition Consult Note Benny Zurita is a 83 y.o. male with prostate cancer (on Lupron), HTN, HLD, mild asthma and recent finding of pancreatic mass who presents with weakness and nausea and found to have severe hypokalemia. Reason for Assessment: MST Evaluation Nutrition Recommendations: NPO today for EUS/ERCP Suggest Regular diet upon advancement Ensure Plus available PRN Encourage 5-6 small meals per day Record % PO intake Monitor and replete lytes as indicated Monitor BM Twice weekly weights to assess trend Current Nutrition Regimen: Active Orders Diet NPO diet (Give Meds) Frequency: Effective Midnight Number of Occurrences: Until Specified Assessment: Lab Results Component Value Date NA 131 (L) 10/25/2023 NA 136 07/01/2023 K 3.7 10/25/2023 K 3.7 07/01/2023 CL 97 (L) 10/25/2023 CL 99 07/01/2023 CO2 22 10/25/2023 CO2 29 07/01/2023 BUN 20 10/25/2023 BUN 15 07/01/2023 CREATININE 0.70 (L) 10/25/2023 CREATININE 0.70 07/01/2023 ESTGFR 93 07/01/2023 MAGNESIUM 0.76 10/23/2023 CALCIUM 8.8 10/25/2023 CALCIUM 9.1 07/01/2023 PHOS 3.6 10/23/2023 AST 190 (H) 10/25/2023 AST 20 07/01/2023 ALT 458 (H) 10/25/2023 ALT 24 07/01/2023 ALKPHOS 366 (H) 10/25/2023 ALKPHOS 42 07/01/2023 BILITOT 8.5 (H) 10/25/2023 BILITOT 0.5 07/01/2023 No results found for: POCGLU Patient Lines/Drains/Airways Status Active Nutritional LDAs Name Placement date Placement time Site Days PIV 10/23/23 1235 18 gauge median cubital vein (antecubital fossa), left 10/23/23 1235 -- 2 Oxygen Therapy / Airway Device: None (Room air) Last Bowel Movement: 10/24/23 Intake/Output Summary (Last 24 hours) at 10/25/2023 1225 Last data filed at 10/25/2023 0820 Gross per 24 hour Intake 620 ml Output 1150 ml Net -530 ml Relevant medications: Lovenox, others reviewed Anthropometrics: Admit Weight: 85.28 kg Estimated body mass index is 27.21 kg/m?? as calculated from the following: Height as of this encounter: 176.5 cm (5' 9.5). Weight as of this encounter: 84.8 kg (186 lb 15.2 oz). Mcclure Body Weight (IBW) (kg): 74.09 Usual Body Weight: 198# Weight Loss: unintentional Duration of Weight Loss: 3 Months Weight Lost: 5.8 kg % of Weight Lost: 6.4% Wt Readings from Last 10 Encounters: 10/23/23 84.8 kg (186 lb 15.2 oz) 10/24/23 84.8 kg (186 lb 15.2 oz) 07/22/23 90.6 kg (199 lb 12.8 oz) 12/04/22 87.2 kg (192 lb 3.2 oz) 11/20/22 89.4 kg (197 lb) 11/13/22 89 kg (196 lb 3.2 oz) 11/06/22 89.3 kg (196 lb 12.8 oz) 11/05/22 89.3 kg (196 lb 12.8 oz) 10/23/22 89.6 kg (197 lb 9.6 oz) 10/08/22 88.7 kg (195 lb 9.6 oz) Patient Vitals for the past 168 hrs: Weight 10/23/23 2032 84.8 kg (186 lb 15.2 oz) 10/23/23 1155 85.3 kg (188 lb) Weight Source: Standing Scale Estimated / Assessed Needs: Kcal / K - 2544 Kcal (25 Kcal/Kg - 30 Kcal/Kg) Estimated Protein Needs: 89 g - 111 g (1.2 g/Kg - 1.5 g/Kg) Nutrition intake and intake history / interview: 10/24: Nutrition consulted for MST evaluation, pt reported 14-23# loss and poor po [employer]. Audio Video Tech met with Benny at bedside (pt's on phone during visit). Benny says that he has had a smaller appetiteand is eating ~50% of his normal sized meals (unable to provide daily intake). He still eats 3 meals per day and some snacks. Audio Video Tech encouraged 5-6 small meals per day to increase intake and suggested trial of ON, pt declined ONS at this time. He notes that he loves potato chips and high fat foods,hopeful to increase intake following EUS/ERCP today. He notes occasional nausea without emesis. He denies dysphagia. He notes UBW 198# with recent loss. He notes that others have commented on his change in appearance, suggesting that he now appears wain with thinning cheeks. NFPE performed, malnutrition not identified. Nutrition Focused Physical Exam: Performed (10/25/23 by HD) . Subcutaneous Fat Loss Orbital region: Mild Upper arm region (triceps/biceps): None present Thoracic and Lumbar regions (ribs, lower back, and maxillary line): None present Lean Muscle Loss Buchanan region (temporalis muscle): None present Clavicle bone region (pectoralis major): Mild Dorsal hand (interosseous muscle): None present Shoulder (deltoid): None present Scapular bone region (latissimus dorsi, trapezius muscles): Not assessed Thigh region (quadriceps muscle): None present Posterior calf region (gastrocnemius muscle): None present Malnutrition Diagnosis: Not identified (Jignesh, JPEN J Parenteral Enteral Nutr. 2011; 36(3): 273-83) Nutrition to continue to follow up while inpatient Debbie Jones, MS, RDN, LD Clinical Nutrition * Vanesa Vance RN - 10/25/2023 5:47 AM EDT Patient Summary Reason for admission: Cholestatic liver disease - presents with one month of jaundice, fatigue, nausea, pruritus and recent diagnosis of pancreaticmass. Relevant PMH: HTN, HLD, mild asthma, and prostate cancer on Lupron Significant 24 hour events: 9/8PM: A/Ox4, VSS on RA. Denied pain. Patient independent in room. To CT this afternoon for CT chest, results negative for mets. Patient aware needs to be NPO at midnight for possible EUS by GI tomorrow. Patient rested in between patient care. Action List NPO @ [place] EUS w/Bx tomorrow by GI? Monitor electrolytes Discharge Plan: home * Rj Rizvi MD - 10/24/2023 7:11 AM EDT Hospital Medicine Attending Daily Progress Note Admit Date: 10/23/2023 Hospital Day 1 day Subjective Interval History: Admitted last night No acute events Feels pretty good this morning, although says he always feels best in the morning No new complaints today ROS: Otherwise negative Active Hospital Problems Diagnosis Painless jaundice Hypokalemia Resolved Hospital Problems No resolved problems to display. PMH Active Non-Hospital Problems Diagnosis Malignant neoplasm of prostate Inpatient Medications: Scheduled montelukast 5 mg Oral Nightly enoxaparin 40 mg Subcutaneous Nightly tamsulosin 0.4 mg Oral Nightly Continuous infusions: PRN: melatonin, ondansetron ODT OR ondansetron Objective Physical Exam Vitals Range last 24 hrs Temperature Temp: [36.4 ??C (97.5 ??F)-36.7 ??C (98.1 ??F)] Heart Rate Heart Rate: [56-77] Blood Pressure BP: (102-137)/(51-70) Respiratory Rate Resp: [14-21] SpO2 SpO2: [93 %-98 %] Patient Vitals for the past 24 hrs: Temp Heart Rate From SP02 Pulse Resp BP SpO2 O2 Device 10/23/23 1155 36.4 ??C (97.5 ??F) -- 77 18 102/57 97 % RA 10/23/23 1230 -- -- 68 14 110/60 -- -- 10/23/23 1300 -- -- 65 16 117/57 98 % -- 10/23/23 1330 -- -- 59 15 118/59 97 % -- 10/23/23 1400 -- -- 64 16 127/69 97 % -- 10/23/23 1430 -- -- 56 18 123/52 93 % -- 10/23/23 1500 -- -- 57 16 117/57 98 % -- 10/23/23 1530 -- -- 75 20 118/67 97 % -- 10/23/23 1600 -- -- 64 18 111/70 98 % -- 10/23/23 1630 -- -- 62 16 114/51 96 % -- 10/23/23 1700 -- -- 64 17 112/59 96 % -- 10/23/23 1730 -- -- 61 15 126/59 97 % -- 10/23/23 1800 -- -- 61 18 122/54 98 % -- 10/23/23 1848 -- -- 70 17 115/68 97 % -- 10/23/23 1900 -- -- 70 21 -- -- -- 10/23/231929 -- -- 67 19 -- 96 % -- 10/23/231958 -- -- -- -- -- -- RA 10/23/232031 36.4 ??C (97.5 ??F) 65 bpm -- 18 137/62 98 % RA 10/24/23 0235 36.7 ??C (98.1 ??F) 55 bpm -- 18 135/60 97 % RA Intake/Output Summary (Last 24 hours) at 10/24/2023 0711 Last data filed at 10/24/2023 0450 Gross per 24 hour Intake 360 ml Output 900 ml Net -540 ml Physical Exam Constitutional: General: He is not in acute distress. Cardiovascular: Rate and Rhythm: Normal rate. Rhythm irregular. Pulmonary: Effort: Pulmonary effort is normal. No respiratory distress. Breath sounds: Normal breath sounds. Abdominal: General: There is no distension. Palpations: Abdomen is soft. Tenderness: There is no abdominal tenderness. There is no guarding. Skin: Coloration: Skin is jaundiced. Neurological: General: No focal deficit present. Mental Status: He is alert and oriented to person, place, and time. Studies reviewed in eDH. Remarkable for the following: LABS: Lab Results Component Value Date WBC 5.21 10/24/2023 HGB 12.3 (L) 10/24/2023 HCT 34.0 (L) 10/24/2023 MCV 89.7 10/24/2023 PLATELET 204 10/24/2023 Lab Results Component Value Date NA 133 (L) 10/24/2023 NA 136 07/01/2023 K 3.9 10/24/2023 K 3.7 07/01/2023 CL 99 10/24/2023 CL 99 07/01/2023 CO2 22 10/24/2023 CO2 29 07/01/2023 BUN 17 10/24/2023 BUN 15 07/01/2023 CREATININE 0.80 10/24/2023 CREATININE 0.70 07/01/2023 GLUCOSE 149 10/24/2023 GLUCFASTING 106 07/01/2023 CALCIUM 8.8 10/24/2023 CALCIUM 9.1 07/01/2023 ESTGFR 93 07/01/2023 MICRO: No results for input(s): URINECULTURE in the last 720 hours. No results for input(s): GRAMSTAIN, BFCX, LOWERRESPCX, TISSUECX in the last 720 hours. No results for input(s): BLOODCX in the last 720 hours. ECG: Recent Labs 10/23/23 1340 DIAGLINE Sinus bradycardia with marked sinus arrhythmia Left anterior fascicular block Left ventricular hypertrophy with QRS widening ( R in aVL , Sanju product ) Possible Lateral infarct , age undetermined Abnormal ECG No previous ECGs available QTCCALC 457 IMAGING: CT A/P IMPRESSION 1. Hypodense pancreatic head mass concerning for pancreatic neoplasm, causing marked obstruction intrahepatic and extrahepatic biliary dilatation as well as main pancreatic duct dilatation. 2. No evidence of metastatic disease in abdomen or pelvis or lymphadenopathy 3. See above for other ancillary findings OTHER Studies: Assessment & Plan Assessment and Plan: Benny Zurita is a 83 y.o. year old male with prostate cancer (on Lupron), HTN, HLD, mild asthma and recent finding of pancreatic mass who presents with weakness and nausea and found to have severehypokalemia. 10/24/2023: Benny is stable, afebrile. Potassium improved (2.9 --> 3.9) with repletion. No dysrhythmias appreciated on telemetry. Will check his electrolytes again later today. If he is able to go for EUS w/biopsy and ERCP w/stenting early in the week, then it would make sense to keep him here forthat in order to expedite his workup. If this won't happen until late in the week, will likely discharge him home so he can do so as an outpatient. Discussed with Benny and he was in agreement. Summary of plan with changes for 10/24/2023: Monitor electrolytes, replace as necessary CT chest for staging Holding diuretics NPO at midnight in event he can go for EUS/ERCP tomorrow Otherwise, consider discharge tomorrow and outpatient procedures # Hypokalemia, improved Check chemistry this afternoon, replete as needed Hold HCTZ Cardiac monitoring # Pancreatic mass # Obstructive jaundice # Hyperbilirubinemia # Elevated transaminases # Marked intrahepatic/extrahepatic biliary dilatation # Pancreatic duct dilatation # Likely malignant biliary obstruction Patient almost certainly with new dx of pancreatic cancer. GI already consulted by the ED. Imagine would benefit from expedited inpatient endoscopic biopsy of the mass as well as biliary stenting, although can't imagine this would happen over the weekend. GI consult Monitor hepatic panel Expect inpatient EUS w/biopsy and ERCP w/biliary stent placement this admit If unable to obtain in next 24-48 hrs, likely discharge and do as outpatient NPO at midnight # HTN # HLD Normotensive, will hold BP meds at this time. Also hold home statin given his LFT's. H/H losartan, HCTZ H/H statin # Asthma, not in exacerbation C/H Singulair # Bundle FENGI: Regular diet DVT Prophylaxis: LMWH LDA: PIV Anticipated Disposition: home Code Status: Attempt Cardiopulmonary Resuscitation - Inpatient Attestation: IPI Certification I certify that I am a [facility] credentialed attending provider with admitting privileges and that the patient meets or has met medical necessity to require an inpatient IPI level of care meeting a minimumof two midnights or is on the [facility] inpatient only procedure list (status C) due to: severe hypokalemia Team Pager(MD Coverage 07/09): [phone] PCP: Jez Vance MD [phone] Rj Rizvi MD 10/24/2023 * Vanesa Vance RN - 10/24/2023 6:03 AM EDT Patient Summary Reason for admission: Cholestatic liver disease - presents with one month of jaundice, fatigue, nausea, pruritus and recent diagnosis of pancreaticmass. Relevant PMH: HTN, HLD, mild asthma, and prostate cancer on Lupron Significant 24 hour events: 10/22 PM: Received patient from ED via stretcher, AAOX4, respirations unlabored on room air. Denied pain. Call light within reach, instructed to call for assistance when needed. Patient rested in between patient care. Action List Expect inpatient EUS w/biopsy and ERCP w/biliary stent placement this admit Likely obtain staging imaging this admission documented in this encounter H&P Notes * Felicity Potts MD - 10/25/2023 5:51 AM EDT Gastroenterology and Hepatology Pre-Procedure History and Physical Exam Procedure: EUS ERCP Indication: pancreas head mass, malignant biliary obstruction Patient Active Problem List Diagnosis Code Malignant neoplasm of prostate C61 Painless jaundice R17 Hypokalemia E87.6 EXAM: HEENT: Airway examined, oropharynx clear Mallampati Score: II (soft palate, uvula, fauces visible) LUNGS: Clear to auscultation HEART: Regular rate and rhythm, normal S1, S2 ABDOMEN: Normal bowel sounds, soft, non tender, non distended A/P: Proceed with the planned endoscopic procedure. ASA 3 - Patient with moderate systemic disease with functional limitations Sedation Plan: anesthesia Risks and benefits of the procedure explained to the patient. Consent form signed and included in the patient's chart. Felicity Potts PGY-6, Gastroenterology * Rj Rizvi MD - 10/23/2023 5:47 PM EDT Inpatient Hospital Medicine - Admission Note CC/ID: 83 y.o. Male presents to [facility] with fatigue and nausea Subjective History of Present Illness: Benny Zurita is a 83 y.o. year old male with HTN, HLD, mild asthma, and prostate cancer on Lupron who presents with one month of jaundice, fatigue, nausea, pruritus and recent diagnosis of pancreatic mass. Patient states was in his usual state of health until about a month ago. He then noticed he startedto turn yellow and felt generally unwell, fatigued, and nauseated. This has gotten progressively worse over the past two weeks. Then 5 days ago said he started to develop diffuse itchiness and his stools turned white. He presented to his PCP, who obtained an abdominal ultrasound concerning for a pancreatic mass and dilated biliary ducts. He was told he would be getting an MRI to further investigate, but he got impatient and was feeling worse so he presented to the ED at [facility]. In the ED, found to have hypokalemia (2.9), mild normocytic anemia (13.1), normal renal function, markedly elevated bilirubin (8.6), elevated LFT's (AST 258 / ALT 577). GI consulted by the ED and medicine paged for admission. Patient lives with his , split between here and [place]. 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 Rare EtOH. Nonsmoker. No illicits. Previously quite healthy aside from prostate cancer on Lupron. ED Course: BP: 122/54, Heart Rate: 61, Temp: 36.4 ??C (97.5 ??F), Temp src: Temporal, Resp: 18, Height: 176.5 cm (5' 9.5), Weight: 85.3 kg (188 lb), SpO2: 98 %, O2 Device: RA, BMI (Calculated): 27.36 Exam: as documented Diagnostics: CT A/P, labs Interventions: potassium Consults: GI Review of Systems: Review of Systems All other systems reviewed and are negative. Problem List: Active Hospital Problems Diagnosis Cholestatic liver disease Resolved Hospital Problems No resolved problems to display. Active Non-Hospital Problems Diagnosis Malignant neoplasm of prostate Past Medical and Surgical History: Past Medical History: Diagnosis Date HTN (hypertension) Hyperlipidemia Prostate cancer Past Surgical History: Procedure Laterality Date PROSTATE BIOPSY ROTATOR CUFF REPAIR Bilateral Prior To Admission Medications: (Not in a hospital admission) Allergies: No Known Allergies Family History: Family History Problem Relation Age of Onset Prostate Cancer Father 83 Heart Disease Father Social History and Habits: Social History Socioeconomic History Marital status: Spouse name: Not on file Number of children: Not on file Years of education: Not on file Highest education level: Not on file Occupational History Not on file Tobacco Use Smoking status: Never Smokeless tobacco: Never Vaping Use Vaping status: Never Used Substance and Sexual Activity Alcohol use: Yes Alcohol/week: 1.0 standard drink of alcohol Types: 1 Glasses of wine per week Comment: social drinker once a month Drug use: Never Sexual activity: Yes Partners: Female Other Topics Concern Not on file Social History Narrative Not on file Social Determinants of Health Financial Resource Strain: Low Risk (08/06/2022) Overall Financial Resource Strain (CARDIA) Difficulty of Paying Living Expenses: Not hard at all Food Insecurity: No Food Insecurity (08/06/2022) Hunger Vital Sign Worried About Running Out of Food in the Last Year: Never true Ran Out of Food in the Last Year: Never true Transportation Needs: No Transportation Needs (08/06/2022) PRAPARE - Transportation Lack of Transportation (Medical): No Lack of Transportation (Non-Medical): No Physical Activity: Not on file Intimate Partner Violence: Not At Risk (10/23/2023) DH IPV Inpatient Questions Prevent Contact with Others: no Feels Threatened by Someone: no Feels Unsafe at Home: no Physical Signs of Abuse Present: no Housing Stability: Low Risk (08/06/2022) Housing Stability Vital Sign Unable to Pay for Housing in the Last Year: No Number of Places Lived in the Last Year: 2 Unstable Housing in the Last Year: No Objective Physical Exam: Last Set of Vitals and range of vitals over past 24 hours: Last value Range last 24 hrs Temperature Temp: 36.4 ??C (97.5 ??F) Temp: [36.4 ??C (97.5 ??F)] Heart Rate Heart Rate: 61 Heart Rate: [56-77] Blood Pressure BP: 122/54 BP: (102-127)/(51-70) Respiratory Rate Resp: 18 Resp: [14-20] SpO2 SpO2: 98 % SpO2: [93 %-98 %] Patient Vitals for the past 24 hrs: Temp Pulse Resp BP SpO2 O2 Device 10/23/23 1155 36.4 ??C (97.5 ??F) 77 18 102/57 97 % RA 10/23/23 1230 -- 68 14 110/60 -- -- 10/23/23 1300 -- 65 16 117/57 98 % -- 10/23/23 1330 -- 59 15 118/59 97 % -- 10/23/23 1400 -- 64 16 127/69 97 % -- 10/23/23 1430 -- 56 18 123/52 93 % -- 10/23/23 1500 -- 57 16 117/57 98 % -- 10/23/23 1530 -- 75 20 118/67 97 % -- 10/23/23 1600 -- 64 18 111/70 98 % -- 10/23/23 1630 -- 62 16 114/51 96 % -- 10/23/23 1700 -- 64 17 112/59 96 % -- 10/23/23 1730 -- 61 15 126/59 97 % -- 10/23/23 1800 -- 61 18 122/54 98 % -- Physical Exam Constitutional: General: He is not in acute distress. HENT: Head: Normocephalic and atraumatic. Cardiovascular: Rate and Rhythm: Normal rate. Rhythm irregular. Heart sounds: Normal heart sounds. Pulmonary: Effort: Pulmonary effort is normal. No respiratory distress. Abdominal: General: There is no distension. Palpations: Abdomen is soft. Tenderness: There is no abdominal tenderness. There is no guarding. Musculoskeletal: Right lower leg: No edema. Left lower leg: No edema. Skin: Coloration: Skin is jaundiced. Neurological: General: No focal deficit present. Mental Status: He is alert and oriented to person, place, and time. Labs: Lab Results Component Value Date WBC 4.60 10/23/2023 HGB 13.1 (L) 10/23/2023 HCT 36.2 (L) 10/23/2023 MCV 90.5 10/23/2023 PLATELET 233 10/23/2023 Lab Results Component Value Date NA 134 (L) 10/23/2023 NA 136 07/01/2023 K 2.9 (CRIT) 10/23/2023 K 3.7 07/01/2023 CL 94 (L) 10/23/2023 CL 99 07/01/2023 CO2 26 10/23/2023 CO2 29 07/01/2023 BUN 16 10/23/2023 BUN 15 07/01/2023 CREATININE 0.85 10/23/2023 CREATININE 0.70 07/01/2023 GLUCOSE 164 10/23/2023 GLUCFASTING 106 07/01/2023 CALCIUM 9.1 10/23/2023 CALCIUM 9.1 07/01/2023 ESTGFR 93 07/01/2023 Lab Results Component Value Date ALT 577 (H) 10/23/2023 AST 258 (H) 10/23/2023 ALKPHOS 375 (H) 10/23/2023 BILITOT 8.6 (H) 10/23/2023 No results found for: CK, CKMB, CKMBINDEX, TROPONINT I have personally reviewed and interpreted the following studies. Notable findings include: Microbiology: Blood Cultures: none Urine Cultures: none COVID-19: none Radiology: CT A/P IMPRESSION 1. Hypodense pancreatic head mass concerning for pancreatic neoplasm, causing marked obstruction intrahepatic and extrahepatic biliary dilatation as well as main pancreatic duct dilatation. 2. No evidence of metastatic disease in abdomen or pelvis or lymphadenopathy 3. See above for other ancillary findings Other Studies: EKG: sinus latrice, LAFB noted - no studies for comparison Echocardiogram: none Assessment & Plan Assessment and Plan: Benny Zurita is a 83 y.o. year old male with prostate cancer (on Lupron), HTN, HLD, mild asthma and recent finding of pancreatic mass who presents with weakness and nausea and found to have severehypokalemia. # Hypokalemia Patient with significant hypokelamia and no improvement following some repletion in the ED. Patientreceived 40 mEq PO and 10 mEq IV in the ED this afternoon. Check Mg and continue cardiac monitoring. Sinus arrhythmia noted on EKG here. Aggressive potassium repletion (10 mEq IV x 6), check K, repeat as needed Check magnesium, phosphorus - replete as indicated Hold HCTZ Cardiac monitoring # Pancreatic mass # Obstructive jaundice # Hyperbilirubinemia # Elevated transaminases # Marked intrahepatic/extrahepatic biliary dilatation # Pancreatic duct dilatation # Likely malignant biliary obstruction Patient almost certainly with new dx of pancreatic cancer. GI already consulted by the ED. Imagine would benefit from expedited inpatient endoscopic biopsy of the mass as well as biliary stenting, although can't imagine this would happen over the weekend. GI consult Monitor hepatic panel Expect inpatient EUS w/biopsy and ERCP w/biliary stent placement this admit Likely obtain staging imaging this admission OK for diet tonight # HTN # HLD Normotensive, will hold BP meds at this time. Also hold home statin given his LFT's. H/H losartan, HCTZ H/H statin # Asthma, not in exacerbation C/H Singulair # Code Discussed with patient. Desires full code. # Bundle: Dispo: Admit to medicine FENGI: No diet orders on file DVT Prophylaxis: LMWH Code Status: Attempt Cardiopulmonary Resuscitation - Inpatient I certify that the patient requires: continued inpatient care status due to hypokalemia, malignant biliary obstruction If currently a smoker - advised about smoking cessation and will provide smoking cessation materialand support. Pneumovax and Influenza Immunizations given as needed. Rj Rizvi MD [facility] Medicine Pager [phone] documented in this encounter ED Notes * Mirna Dean RN - 10/23/2023 8:06 PM EDT Pt reported IV site burning while potassium chloride running. IV assessed, IV patent. Initiated 100ml/hr NS to dilute potassium chloride infusion. * Mirna Dean RN - 10/23/2023 6:49 PM EDT Dinner choices called down * Mirna Dean RN - 10/23/2023 6:13 PM EDT Admitting at bedside * Mirna Dean RN - 10/23/2023 4:12 PM EDT Pt able to tolerate PO intake. Denies any abdominal pain or nausea at this time. notified. * Mirna Dean RN - 10/23/2023 4:00 PM EDT Pt up to ambulate to the bathroom with a steady gait. Denies any lightheadedness or dizziness. Pt ambulated back to room independently and reconnected to [facility]. Denies any further needs or concerns at this time. Stretcher locked in lowest position, side rails raised, cell mejia in reach. * Mirna Dean RN - 10/23/2023 3:31 PM EDT Provided pt with crackers and water for PO challenge. Pt aware to alert nursing staff if nausea occurs. * Mirna Dean RN - 10/23/2023 1:04 PM EDT Pt to CT * Hudson Walker MD - 10/23/2023 12:31 PM EDT ED Resident Note HPI: Benny Zurita is a 83 y.o. male who presents to the Emergency Department with increased fatigue, jaundice, nausea, which has been progressive over the last month. Patient reports that over the lastmonth he has been feeling ill, fatigued, he was seen by his doctor where they obtained an abdominalultrasound this last to evaluate for his jaundice, found him to have a pancreatic mass andwas planning on an MRI. Patient presents today with progressive jaundice, nausea, fatigue, pruritus. With naeem colored stools. No fevers, night sweats, chills, chest pain or shortness of breath. ROS as per HPI Vitals: ED Triage Vitals [10/23/23 1155] BP: 102/57 Heart Rate: 77 Resp: 18 Temp: 36.4 ??C (97.5 ??F) Temp src: Temporal SpO2: 97 % O2 Device: RA O2 Flow Rate (L/min): n/a Physical Exam Constitutional: Comments: Jaundiced HENT: Head: Normocephalic. Eyes: General: Scleral icterus present. Cardiovascular: Rate and Rhythm: Normal rate and regular rhythm. Pulses: Normal pulses. Heart sounds: Normal heart sounds. Pulmonary: Effort: Pulmonary effort is normal. Breath sounds: Normal breath sounds. Abdominal: Palpations: Abdomen is soft. Tenderness: There is abdominal tenderness (Mild right upper quadrant tenderness to palpation). Skin: General: Skin is warm and dry. Coloration: Skin is jaundiced. Neurological: Mental Status: He is alert. Comments: Moving all extremities equally. Psychiatric: Mood and Affect: Mood normal. ED Course: I have reviewed labs and imaging, images and available reports, and they are significant for: Recent Results (from the past 24 hour(s)) Comprehensive metabolic panel Result Value Ref Range Glucose 186 65 - 199 mg/dL Blood Urea Nitrogen 17 10 - 20 mg/dL Creatinine 0.79 (L) 0.80 - 1.50 mg/dL Sodium 130 (L) 135 - 145 mMol/L Potassium 2.9 (CRIT) 3.5 - 5.0 mMol/L Chloride 92 (L) 98 - 107 mMol/L Carbon Dioxide 24 22 - 31 mMol/L Anion Gap 14 5 - 15 mMol/L Calcium 9.1 8.5 - 10.5 mg/dL Protein, Total 6.5 6.1 - 8.0 g/dL Albumin 3.8 3.2 - 5.2 g/dL Aspartate Aminotransferase 258 (H) <=39 unit/L Alanine Aminotransferase 577 (H) 0 - 55 unit/L Alkaline Phosphatase 375 (H) 40 - 130 unit/L Bilirubin, Total 8.6 (H) <=1.3 mg/dL Est Glomerular Filtration Rate - Male 89 mL/min/1.73 m?? Lipase Result Value Ref Range Lipase 49 0 - 60 unit/L Type and screen ([facility]/ANDRE/FREDY) Result Value Ref Range ABORH Type O POSITIVE PATIENT HISTORY Not Found Expires at 0053 on: 10-26-2023 ANTIBODY SCREEN AUTOMATED Negative T&S only valid at [facility] CBC (with Diff) Result Value Ref Range White Blood Cell 4.60 4.00 - 9.50 x10(3)/mcL Red Blood Cell 4.00 (L) 4.58 - 5.54 x10(6)/mcL Hemoglobin 13.1 (L) 13.7 - 16.5 g/dL Hematocrit 36.2 (L) 40.5 - 48.5 % Mean Cell Volume 90.5 82.9 - 93.1 fL Mean Cell Hemoglobin 32.8 (H) 27.5 - 32.1 pg Mean Cell Hemoglobin Concentration 36.2 (H) 32.0 - 35.7 g/dL Platelet 233 145 - 357 x10(3)/mcL Mean Platelet Volume 11.4 7.6 - 12.9 fL RDW Standard Deviation 43.7 36.0 - 45.0 fL RDW coefficient of variation 13.2 11.4 - 13.8 % NRBC% auto 0.0 % NRBC Absolute 0.00 0.00 - 0.00 x10(3)/mcL Neutrophil % 70.4 % Neutrophil Absolute (ANC) - Automated 3.24 1.70 - 6.10 x10(3)/mcL Lymph % 15.4 % Lymph Absolute 0.71 (L) 0.90 - 3.20 x10(3)/mcL Monocyte % 10.0 % Monocyte Absolute 0.46 0.30 - 0.90 x10(3)/mcL Eos % 2.6 % Eos Absolute 0.12 0.00 - 0.40 x10(3)/mcL Basophil % 0.9 % Baso Absolute 0.04 0.00 - 0.10 x10(3)/mcL Immature Gran % 0.7 % Immature Gran Absolute 0.03 0.00 - 0.04 x10(3)/mcL ABORH RECHECK Result Value Ref Range ABORH Recheck O POSITIVE Basic Metabolic Panel Result Value Ref Range Glucose 164 65 - 199 mg/dL Blood Urea Nitrogen 16 10 - 20 mg/dL Creatinine 0.85 0.80 - 1.50 mg/dL Sodium 134 (L) 135 - 145 mMol/L Potassium 2.9 (CRIT) 3.5 - 5.0 mMol/L Chloride 94 (L) 98 - 107 mMol/L Carbon Dioxide 26 22 - 31 mMol/L Anion Gap 14 5 - 15 mMol/L Calcium 9.1 8.5 - 10.5 mg/dL Est Glomerular Filtration Rate - Male 87 mL/min/1.73 m?? CT Abdomen & Pelvis w Contrast Final Result 1. Hypodense pancreatic head mass concerning for pancreatic neoplasm, causing marked obstruction intrahepatic and extrahepatic biliary dilatation as well as main pancreatic duct dilatation. 2. No evidence of metastatic disease in abdomen or pelvis or lymphadenopathy 3. See above for other ancillary findings Thank you for letting us participate in the care of this patient. If you are a health care provider and have any questions regarding this report, please contact the number below. For patients who have questions please contact the health healthcare sales representative that requested your imaging first. Electronically signed by: Davy Sinclair MD, [facility] ([phone]), at 10/23/2023 1:26 PM Procedures Assessment and Plan: 83 y.o. male with progressive jaundice, fatigue, pruritus. Patient with recent ultrasound imaging concerning for pancreatic mass. Will obtain labs to evaluate for other causes of jaundice however suspect that he has obstructive jaundice based on recent ultrasound results (pancreatic mass and distended gall bladder), and will further evaluate with CT abdomen and pelvis and discuss with gastroenterology following this for possible stent placement. Patient with hypokalemia so started on potassium, with mildly low hemoglobin at 13.1, and with elevated bilirubin at 8.6, AST 258, ALT 577, Alk phos 375. CT with pancreatic head mass with dilation ofCBD, intra-extrahepatic ductal dilatation. Patient signed out pending recommendations from GI. Planfor admission. Patient signed out to oncoming ED team. Hudson Walker MD Resident 10/23/231855 Hudson Walker MD Resident 10/23/231856 Associated attestation - Leia Henley MD - 10/24/2023 10:16 AM EDT ED ATTENDING ATTESTATION NOTE The patient was seen in conjunction with the resident physician. I have independently performed thekey portions of the history and physical exam. I have reviewed the diagnostic studies including labs, imaging studies and EKGs. I have discussed the details of the case with the resident and agree with the assessment and plan as described in the resident note unless noted below or in my separate note. * Leia Henley MD - 10/23/2023 12:27 PM EDT ED Attending Note HPI: Benyn Zurita is a 83 y.o. male who presents to the Emergency Department who is had 1 month of pruritus fatigue weight loss and jaundice who was thought to be related to gallbladder pathology but then on had an ultrasound that showed a pancreatic mass. He is here because he feels terrible with weakness nausea. He has naeem colored stools and dark urine. He denies any fevers chills chestpain or shortness of breath. ROS as per HPI Vitals: ED Triage Vitals [10/23/23 1155] BP: 102/57 Heart Rate: 77 Resp: 18 Temp: 36.4 ??C (97.5 ??F) Temp src: Temporal SpO2: 97 % O2 Device: RA O2 Flow Rate (L/min): n/a Physical Exam Vitals and nursing note reviewed. Constitutional: Appearance: He is well-developed. HENT: Head: Normocephalic and atraumatic. Comments: Jaundice Cardiovascular: Rate and Rhythm: Normal rate and regular rhythm. Pulses: Normal pulses. Heart sounds: Normal heart sounds. Pulmonary: Effort: Pulmonary effort is normal. No respiratory distress. Breath sounds: Normal breath sounds. Abdominal: General: There is no distension. Palpations: Abdomen is soft. Tenderness: There is no abdominal tenderness. Musculoskeletal: General: Normal range of motion. Cervical back: Normal range of motion and neck supple. Skin: General: Skin is warm and dry. Neurological: Mental Status: He is alert and oriented to person, place, and time. Comments: PIPER Psychiatric: Behavior: Behavior normal. Thought Content: Thought content normal. Judgment: Judgment normal. ED Course: I have reviewed labs and imaging, images and available reports, and they are significant for: No orders to display ED Course as of 10/23/23 1346 Sat Oct 23, 2023 1336 IMPRESSION 1. Hypodense pancreatic head mass concerning for pancreatic neoplasm, causing marked obstruction intrahepatic and extrahepatic biliary dilatation as well as main pancreatic duct dilatation. 2. No evidence of metastatic disease in abdomen or pelvis or lymphadenopathy 3. See above for other ancillary findings 1337 GI paged 1345 Sinus bradycardia 56 with sinus arrhythmia left and anterior fascicular block left axis deviation QRS [address]-T wave changes no old to compare Assessment and Plan: 83 y.o. male with 1 month of jaundice pruritus fatigue nausea all concerning for biliary obstruction. He had an ultrasound that shows a new pancreatic mass. Plan for full labs and CT to assess for obstructive jaundice. He will likely then need GI consult and possible admission for stent. Patient signed out to my colleague pending labs and CT. Did this case involve critical care? No Leia Henley MD 10/23/23 1309 documented in this encounter Miscellaneous Notes * Care Management Discharge - Aleida Parrish RN - 10/27/2023 9:59 AM EDT CARE MANAGEMENT FINAL DISCHARGE NOTE Chart reviewed, care reviewed with primary team and at interdisciplinary rounds. Patient is medically ready for discharge to home. Needs for Transition of Care: Plan for discharge is: Home w/o Services Outpatient Agency/Support Group Needs: None Agency Referrals & Follow-up Care: Transportation: family or friend will provide Wheelchair van/Ambulance? No Functional status prior to admission: Independent Home Environment: Others in the home: spouse. Current Living Arrangements: home/apartment/condo. Accessibility Concerns:lives in a 2 story house with 3 [address]INA,. Current Functional Ability: Independent DME used at home: cane - straight, walker - standard DME Needed at Discharge: n/a Patient is insured through: Primary Insurance: MEDICARE Payor: MEDICARE / Plan: MEDICARE PART A & B / Product Type: *No Product type* / Secondary Insurance: [facility] Prescription Coverage: Yes This plan was formulated with input from patient, and team. All are in agreement with plan. JUDITH Villaseñor, RN, CM * Care Management - Aleida Parrish RN - 10/27/2023 9:54 AM EDT OFFICE OF CARE MANAGEMENT PROGRESS NOTE LOS: Hospital Day 4 days Chart reviewed, care reviewed with primary team and at interdisciplinary rounds. 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 Current Living Arrangements: home/apartment/condo. Accessibility Concerns: lives in a 2 story house with 3 [address],. Current Functional Ability: Independent DME used at home: cane - straight, walker - standard DME Needed at Discharge: No Patient is insured through: Primary Insurance: MEDICARE Payor: MEDICARE / Plan: MEDICARE PART A & B / Product Type: *No Product type* / Secondary Insurance: [facility] Plan for discharge is: Home w/o Services Outpatient Agency/Support Group Needs: None Agency Referrals: Not applicable Transportation: family or friend will provide Barriers to discharge: Discharge planning Plan going forward: medically ready today, awaiting for BM. Patient has no apparent housing, transportation, insurance, resources concerns identified at this time. Supports in place to achieve a safepost-hospital transition. No identified barriers to accessing necessary care and/or follow-up afterdischarge. Anticipated Date of Discharge: 10/27/2023 JUDITH Villaseñor, RN, CM * Plan of Care - Lorie Samuel RN - 10/25/2023 7:14 PM EDT OUTCOME EVALUATION NOTE: OUTCOME SUMMARY: A/Ox4, VSS on RA. Denied pain. Patient independent in room. To Endo this afternoon for EUS and ERCP. Back in room post procedures at 1730. Reporting pain 3/10 on numeric scale. Patient denied dizziness but reported feeling doozy. Patient aware may only have clear liquids until diet is advanced. Spouse updated on patient's status over the phone, per patient request. Patient rested in between patient care. PLAN MOVING FORWARD: Monitor electrolytes Follow pathology results Pain management INDIVIDUALIZED FALL PREVENTION INTERVENTIONS: Patient-specific fall risk factors per assessment: [current deficits]: malaise Assistance [level of assistance required for transfers and ambulation]: Ind Supervision [direct monitoring required during toileting and ADLs]: Ind Surveillance [continuous indirect monitoring]: continuous masimo, purposeful rounding, call light within reach Patient-specific fall prevention interventions for sensory deficits provided, if applicable: [X] N/A CARE PLAN GOAL OUTCOME EVALUATION: Problem: Adult Inpatient Plan of Care Goal: Plan of Care Review Outcome: Ongoing (Interventions Implemented as Appropriate) Flowsheets Taken 10/25/2023 191 Plan of Care Reviewed With: patient Progress: no change Taken 10/24/2023 182 Outcome Summary: reviewed plan of care with patient at bedside Goal: Optimal Comfort and Wellbeing Outcome: Ongoing (Interventions Implemented as Appropriate) Note: Independent in room Intervention: Monitor Pain and Promote Comfort Note: Fentanyl given at recovery for epigastric pain s/p EUS and ERCP. Paged team for pain regimen orders to be added for pain reports s/p procedure. PRN oxy and toradol added. Intervention: Provide Person-Centered Care Flowsheets (Taken 10/25/2023 5005 by Kelly Nicholson RN) Trust Relationship/Rapport: care explained choices provided emotional support provided empathic listening provided questions encouraged reassurance provided thoughts/feelings acknowledged * Initial Assessments - Aleida Parrish RN - 10/25/2023 10:06 AM EDT Office of Care Management Initial Assessment Aleida Parrish RN reviewed record and discussed patient with Care Team. Source of Information: Team, bedside nurse, medical record, and Patient Introduced self/reviewed role; services accepted. Admitted From: Home Reason for Hospitalization: pancreatic mass Past medical History: Past Medical History: Diagnosis Date HTN (hypertension) Hyperlipidemia Prostate cancer Hospitalizations Within the Past 30 Days: no previous admission in last 30 days Current Decision-Making Capacity: Self If AD's have not been completed the following surrogate Angela Zurita ( spouse) would be surrogatedecision maker per [place] surrogate decision making law. (Only good for 180 days) Any patient receiving care in [place] must abide by [place] law. The hierarchy for surrogate decision making is: (a) Patient???s spouse or civil union partner unless there is a divorce proceeding, separation agreement, or restraining order limiting that person???s relationship with the patient. (b) Any adult son or daughter of the patient. (c) Either parent of the patient. (d) Any adult brother or sister of the patient. (e) Any adult grandchild of the patient. (f) Any grandparent of the patient. (g) Any adult aunt, uncle, niece, or nephew of the patient. (h) A close friend of the patient. (i) The agent with financial power of united states attorney or a conservator appointed in accordance with RSA 464-A. (j) The guardian of the patient???s estate. Advance Care Planning: Attempt Cardiopulmonary Resuscitation - Inpatient <no information> -Advanced Directive: No, need to discuss Current Coping/Education/Information Needs: able to verbalize needs Current Functional Ability: Independent Functional Status Prior to Admission: Independent Prior ADLs & IADLs: Independent with all ADLs & IADLs Home Environment: Others in the home: spouse. Current Living Arrangements: home/apartment/condo. Accessibility Concerns:lives in a 2 story house with 3 [address],. In the last 12 months, was there a time when you were not able to pay the mortgage or rent on time?: No In the past 12 months, how many times have you moved where you were living?: 1 At any time in the past 12 months, were you homeless or living in a residential (including now)?: No In the past 12 months has the electric, gas, oil, or water [employer] threatened to shut off services in your home?: No Within the past 12 months, you worried that your food would run out before you got the money to buymore.: Never true Within the past 12 months, the food you bought just didn't last and you didn't have money to get more.: Never true Resource / Environmental Concerns: Resource/Environmental Concerns: none In the past 12 months, has lack of transportation kept you from medical appointments or from getting medications?: No In the past 12 months, has lack of transportation kept you from meetings, work, or from getting things needed for daily living?: No Current DME: skyler hernandez - [employer] Home Address confirmed as: [address] [address] Social & Family Supports: All names listed below confirmed with patient as current and correct Extended Emergency Contact Information Primary Emergency Contact: Angela Zurita Address: [address] [place] [address] [facility] [place] Relation: Spouse Secondary Emergency Contact: Tiera Washington Address: [address] [place] [address] [facility] Relation: Child Current Care Provided by: self Provides Primary Care For: no one Caregiver if needed: Quality of Family relationships: helpful, involved, supportive Community Resources being provided currently: none Behavioral Health History: currently coping Substance Use/Abuse listed: Social History Tobacco Use Smoking Status Never Smokeless Tobacco Never In the past year have you used an illegal drug or used a prescription medication for non-medical reasons?: No 0 No problems reported 1-2 Low level 3-5 Moderate level 6-8 Substantial level 9- 10 Severe level In the past year have you had 5 or more drinks a day containing alcohol?: No 0 to 7 points: Low risk 8 to 15 points: Medium risk 16 to 19 points: High risk 20 to 40 points: Addiction likely Other Pertinent/Service Specific Information: denies Health/Prescription Coverage: Primary Insurance: MEDICARE Payor: MEDICARE / Plan: MEDICARE PART A & B / Product Type: *No Product type* / Secondary Insurance: [facility] ONLY if patient has Medicare A&B - Does this patient have secondary insurance?: Yes ; Prescription Coverage: Yes Preferred Pharmacy: [address] [address] Status: Patient is a : No Primary Care Provider confirmed: Jez Vance MD [phone] Patient/Caregiver Goals of Treatment: return to home Potential Needs for Transition of Care: Agency Referrals: Not Applicable Transportation: no concerns Transportation Anticipated: family or friend will provide Concerns to be Addressed: denies needs/concerns at this time Assessment: Patient is admitted to medicine service for fatigue and nausea. Plan going forward: Patient has no apparent housing, transportation, insurance, resources concerns identified at this time. Supports in place to achieve a safe post-hospital transition. No identifiedbarriers to accessing necessary care and/or follow-up after discharge. GI consult. Pending clinicalcourse. Will route referral if needed. Care Management team will continue to follow and assist with discharge planing and coordination of care as indicated. JUDITH Villaseñor, RN, CM * Plan of Care - Vanesa Vance RN - 10/24/2023 9:47 PM EDT Patient verbalizes understanding plan of care. Problem: Adult Inpatient Plan of Care Goal: Plan of Care Review Outcome: Ongoing (Interventions Implemented as Appropriate) Goal: Patient-Specific Goal (Individualized) Outcome: Ongoing (Interventions Implemented as Appropriate) Goal: Absence of Hospital-Acquired Illness or Injury Outcome: Ongoing (Interventions Implemented as Appropriate) Goal: Optimal Comfort and Wellbeing Outcome: Ongoing (Interventions Implemented as Appropriate) Goal: Readiness for Transition of Care Outcome: Ongoing (Interventions Implemented as Appropriate) Problem: Nausea and Vomiting Goal: Fluid and Electrolyte Balance Outcome: Ongoing (Interventions Implemented as Appropriate) * Plan of Care - Lorie Samuel RN - 10/24/2023 6:28 PM EDT OUTCOME EVALUATION NOTE: OUTCOME SUMMARY: A/Ox4, VSS on RA. Denied pain. Patient independent in room. To CT this afternoon for CT chest, results negative for mets. Patient aware needs to be NPO at midnight for possible EUS by GI tomorrow. Patient rested in between patient care. PLAN MOVING FORWARD: NPO @ [place] EUS w/Bx tomorrow by GI? Monitor electrolytes INDIVIDUALIZED FALL PREVENTION INTERVENTIONS: Patient-specific fall risk factors per assessment: [current deficits]: malaise Assistance [level of assistance required for transfers and ambulation]: Ind Supervision [direct monitoring required during toileting and ADLs]: Ind Surveillance [continuous indirect monitoring]: continuous masimo, purposeful rounding, call light within reach Patient-specific fall prevention interventions for sensory deficits provided, if applicable: [X] N/A CARE PLAN GOAL OUTCOME EVALUATION: Problem: Adult Inpatient Plan of Care Goal: Plan of Care Review Outcome: Ongoing (Interventions Implemented as Appropriate) Flowsheets (Taken 10/24/20231826) Outcome Summary: reviewed plan of care with patient at bedside Plan of Care Reviewed With: patient Progress: no change Goal: Optimal Comfort and Wellbeing Outcome: Ongoing (Interventions Implemented as Appropriate) Note: Independent in room Intervention: Monitor Pain and Promote Comfort Note: Denied pain Intervention: Provide Person-Centered Care Flowsheets (Taken 10/24/2023 0830) Trust Relationship/Rapport: care explained choices provided Problem: Nausea and Vomiting Goal: Fluid and Electrolyte Balance Outcome: Ongoing (Interventions Implemented as Appropriate) Note: Denied n/v Intervention: Prevent and Manage Nausea and Vomiting Flowsheets (Taken 10/24/20231826) Environmental Support: rest periods encouraged personal routine supported Nausea/Vomiting Interventions: nausea triggers minimized * Plan of Care - Vanesa Vance RN - 10/23/2023 9:29 PM EDT Patient verbalizes understanding plan of care. Problem: Adult Inpatient Plan of Care Goal: Plan of Care Review Outcome: Ongoing (Interventions Implemented as Appropriate) Goal: Patient-Specific Goal (Individualized) Outcome: Ongoing (Interventions Implemented as Appropriate) Goal: Absence of Hospital-Acquired Illness or Injury Outcome: Ongoing (Interventions Implemented as Appropriate) Goal: Optimal Comfort and Wellbeing Outcome: Ongoing (Interventions Implemented as Appropriate) Goal: Readiness for Transition of Care Outcome: Ongoing (Interventions Implemented as Appropriate) Problem: Nausea and Vomiting Goal: Fluid and Electrolyte Balance Outcome: Ongoing (Interventions Implemented as Appropriate) * Consult Note - Estephania Stein RPH - 10/23/2023 9:26 PM EDT TelePharmacy Home Medication List Update for Medication Reconciliation 10/23/23 9:26 PM Benny Zurita 1940 No Known Allergies Person Interviewed: patient Quality of Interview/accuracy of medication list: good Sources used to compile medication list: [x] Epic medication list [x] SureScripts/Dispense Report [] PCP/Specialist list [] Retail pharmacy [x] Patient list [] MAR [] Other Changes made to home medication list: Additions: None Deletions: Cialis Hydroxyzine Potassium chloride Lac hydrin lotion Efudex cream Changes: Hydrochlorothiazide 25mg po daily (was 12.5mg daily) Ibuprofen 600mg po tid prn Losartan 50mg po hs (was 50mg bid) Additional Notes: Updated medication list with information provided by patient. Recommended changes: None The home medication list is now updated to the best of my knowledge and is ready to be reconciled by the provider. Please contact the TelePharmacy Medication Reconciliation Pharmacist at for any questions. Estephania Stein RPH * Consult Note - Norma Nunes MD - 10/23/2023 5:31 PM EDT Images from the original note were not included. DIVISION OF GASTROENTEROLOGY & HEPATOLOGY INITIAL CONSULT REQUESTING PROVIDER: Anjum Biggs MD NAME: Benny Zurita : 1940 HPI: Benny Zurita 83 y.o. male with HTN, HLD, mild asthma, and prostate cancer on Lupron who presentswith one month of jaundice, fatigue, nausea, pruritus and recent diagnosis of pancreatic mass. Reports around a month ago started having some minor symtpoms with some mild epigastric pain after eating. Over last two weeks had increased generalized weakness and poor appetitte from early satiety. Then last week started no notice that his urine was getting darker and he started to have diffuse itching that that worsened. When his bowel movements started to look white a couple of days ago it made him very concerned and prompted him to seen evaluation. He presented to his PCP, who noted that he was looking a bit jaundiced and obtained an abdominal ultrasound concerning for a pancreatic mass and dilated biliary ducts. He was told he would be gettingan MRI to further investigate, but given the concern for possible malignancy he came to the ER to get evaluated. In the ED he was HDS and afebrile and found to have K 2.9. and abnormal LFTS with Tbili 8.6, ALP 375, AST 248, ALT 577. CT a/p obtained which showed pancreatic hypodense mass in the pancreatic head, measuring 1.2 x 1.3x 1.4 cm AP x TV x CC (series 3 image 56). The main pancreatic duct is dilated measuring up to 7 cm with an abrupt transition point at this pancreas mass. There is also marked intrahepatic and extrahepatic ductal dilatation. The CBD is markedly dilated measuring up to 1.6 cm in caliber. The pancreatic mass focally abuts the right lateral margin of the superior SMV and the main portal vein (series 3 image 52). The mass does not involve the celiac trunk or SMA. On interview this afternoon reports feeling ok. Denies any abdominal pain, N/V. No recent fevers, chills, LH/dizziness. Thinks he has lost ~ 10lbs over the past 1-2 months. ROS: 10-system ROS negative other than that noted above PAST MEDICAL: Past Medical History: Diagnosis Date HTN (hypertension) Hyperlipidemia Prostate cancer PAST SURGICAL HX: Past Surgical History: Procedure Laterality Date PROSTATE BIOPSY ROTATOR CUFF REPAIR Bilateral SOCIAL HX: Social History Socioeconomic History Marital status: Spouse name: Not on file Number of children: Not on file Years of education: Not on file Highest education level: Not on file Occupational History Not on file Tobacco Use Smoking status: Never Smokeless tobacco: Never Vaping Use Vaping status: Never Used Substance and Sexual Activity Alcohol use: Yes Alcohol/week: 1.0 standard drink of alcohol Types: 1 Glasses of wine per week Comment: social drinker once a month Drug use: Never Sexual activity: Yes Partners: Female Other Topics Concern Not on file Social History Narrative Not on file Social Determinants of Health Financial Resource Strain: Low Risk (08/06/2022) Overall Financial Resource Strain (CARDIA) Difficulty of Paying Living Expenses: Not hard at all Food Insecurity: No Food Insecurity (08/06/2022) Hunger Vital Sign Worried About Running Out of Food in the Last Year: Never true Ran Out of Food in the Last Year: Never true Transportation Needs: No Transportation Needs (08/06/2022) PRAPARE - Transportation Lack of Transportation (Medical): No Lack of Transportation (Non-Medical): No Physical Activity: Not on file Intimate Partner Violence: Not At Risk (10/23/2023) IPV Inpatient Questions Prevent Contact with Others: no Feels Threatened by Someone: no Feels Unsafe at Home: no Physical Signs of Abuse Present: no Housing Stability: Low Risk (08/06/2022) Housing Stability Vital Sign Unable to Pay for Housing in the Last Year: No Number of Places Lived in the Last Year: 2 Unstable Housing in the Last Year: No FAMILY HX: Family History Problem Relation Age of Onset Prostate Cancer Father 83 Heart Disease Father MEDICATIONS Medication list personally reviewed Home Meds: (Not in a hospital admission) Current Meds: Scheduled: potassium chloride ER 20 mEq Oral Q4H potassium phosphate 10 mmol Intravenous Once Drips: PRN: Allergies: No Known Allergies OBJECTIVE Vitals: T Temp: [36.4 ??C (97.5 ??F)] HR Heart Rate: [56-77] BP BP: (102-127)/(52-70) RR Resp: [14-20] SpO2 SpO2: [93 %-98 %] IO No intake/output data recorded. Wt Last 85.3 kg (188 lb) Admit 85.28 kg Physical Exam: Gen: No acute distress, resting comfortably in bed. Jaundice HEENT: PERRLA, EOMI, mild icterus CHEST: regular respiratory effort Abd: Soft, non-tender, non-distended. No guarding or rebound. Ext: No pedal edema. No gross abnormalities. Neuro: Cranially nerves intact. Moving all four extremities. AAOx3 Labs: Labs personally reviewed in eDH CBC: Recent Labs 10/23/23 1232 WBC 4.60 HGB 13.1* PLATELET 233 MCV 90.5 RDWCV 13.2 CHEM: Recent Labs 10/23/23 1232 CREATININE 0.79* BUN 17 NA 130* K 2.9* CL 92* CO2 24 CALCIUM 9.1 HEPATIC: Recent Labs 10/23/23 1232 BILITOT 8.6* ALKPHOS 375* AST 258* ALT 577* ALBUMIN 3.8 LIPASE 49 IMAGING: Reports and images personally reviewed in e[facility]. Images independently interpreted. CT Abdomen & Pelvis w Contrast Final Result 1. Hypodense pancreatic head mass concerning for pancreatic neoplasm, causing marked obstruction intrahepatic and extrahepatic biliary dilatation as well as main pancreatic duct dilatation. 2. No evidence of metastatic disease in abdomen or pelvis or lymphadenopathy 3. See above for other ancillary findings Thank you for letting us participate in the care of this patient. If you are a health care provider and have any questions regarding this report, please contact the number below. For patients who have questions please contact the health healthcare sales representative that requested your imaging first. Electronically signed by: Davy Sinclair MD, [facility] ([phone]), at 10/23/2023 1:26 PM ENDOSCOPY: Reports and images personally reviewed in e[facility] OSH RECORDS: Obtained and personally reviewed ASSESSMENT & PLAN: 83 y.o. male with HTN, HLD, mild asthma, and prostate cancer on Lupron who presents with one month of painless obstructive jaundice with CT scan today showing pancreatic head mass concerning for malignant obstruction. Fortunately pt is hemodynamically stable and afebrile with minimal symptoms at present. Currently getting admitted to hospital medicine for management of electrolyte derangements and concern for malignant obstruction. Given our concern for new pancreatic cancer causing this obstruction; discussed with patient that he should have and EUS with FNA in order to biopsy mass to get tissue diagnosis as well as ERCP with stent placement to relieve obstruction however given his clinical situation neither of these are emergent, as he has no signs or symptoms of cholangitis. Discussed that may be able to complete early this week pending scheduling availability; likely Wednesday at the earliest. Will continue to follow during admission. Recommendations: - Non-emergent EUS with FNA and ERCP in upcoming days - continue to trend LFTs Patient to be staffed tomorrow AM with Dr. Nunes. Thank you for involving us in the care of thispatient. Please call/page should any further questions arise. Zohreh Vance MD PGY-4, Gastroenterology I saw and examined the patient with Dr. Vance on 10/24/23 and I agree with her assessment and plan as outlined above. The patient has new painless jaundice with a pancreatic head mass on CT and intrahepatic and extrahepatic biliary ductal dilation. Currently no signs of cholangitis. Will plan forEUS for biopsy and ERCP for stent placement this week. Dr. Norma Nunes Director, Endoscopic Bariatric and Met[facility] * ED Triage - Devorah Baca RN - 10/23/2023 11:53 AM EDT Patient presents with concerns of worsening symptoms in context of new diagnosis of mass on pancreas and enlarged gallbladder. I'm getting more yellow and losing weight every day. Urine color changing. Reports dyspnea on exertion. Sclera and skin slight yellow. A&Ox4. Respirations even and unlabored. documented in this encounter Plan of Treatment Upcoming Encounters Date Type Department Care Team (Late st Contact Info) Description 11/30/2023 9:45 AM EDT TH Visit (TeleHealth) Radiation Oncology at [address] [phone] Adrienne Singh PA [facility] HEMATOLOGY [place] [address] 11/30/2023 10:30 AM EDT Infusion Hematology Oncology at [address] [phone] Scheduled Referrals Name Type Priority Associated Diagnoses Order Schedule Referral to Hematology and Oncology Outpatient Referral Routine Pancreatic mass Painless jaundice Malignant neoplasm of prostate Ordered: 10/26/2023 Referral to Gastroenterology Outpatient Referral Routine Pancreatic mass Painless jaundice Malignant neoplasm of prostate Ordered: 10/26/2023 Referral to Gastroenterology Outpatient Referral Routine Pancreatic mass Ordered: 10/27/2023 Referral to General Surgery Outpatient Referral Routine Malignant neoplasm of prostate Ordered: 10/28/2023 documented as of this encounter Procedures Procedure Name Priority Date/Time Associated Diagnosis Comments CBC (WITH DIFF) Routine 10/27/2023 3:35 AM EDT PHOSPHORUS Routine 10/27/2023 3:35 AM EDT MAGNESIUM Routine 10/27/2023 3:35 AM EDT COMPREHENSIVE METABOLIC PANEL Routine 10/27/2023 3:35 AM EDT CBC (WITH DIFF) Routine 10/26/2023 4:00 AM EDT PHOSPHORUS Routine 10/26/2023 4:00 AM EDT MAGNESIUM Routine 10/26/2023 4:00 AM EDT COMPREHENSIVE METABOLIC PANEL Routine 10/26/2023 4:00 AM EDT XR ERCP Routine 10/25/2023 4:40 PM EDT CYTOLOGY FNA Routine 10/25/2023 3:19 PM EDT CYTOLOGY FNA OTHER THAN THYROID Routine 10/25/2023 3:19 PM EDT Ercp Stent Placement Biliary Or Pancreatic Duct([id number]) 10/25/2023 2:37 PM EDT pancreas head mass CHOLANGIOGRAM 10/25/2023 2:37 PM EDT pancreas head mass Ercp Balloon Dilatation Biliary/Pancreatic Duct Or Ampulla Ea Duct ([id number]) 10/25/2023 2:37 PM EDT pancreas head mass Ercp, Sphincterotomy ([id number]) 10/25/2023 2:37 PM EDT pancreas head mass Upgi Endoscopy W/Us Fn Bx ([id number]) 10/25/2023 2:37 PM EDT pancreas head mass Ercp, Diagnostic ([id number]) 10/25/2023 2:37 PM EDT pancreas head mass Endoscopic Us Exam, Esoph ([id number]) 10/25/2023 2:37 PM EDT pancreas head mass ERCP Routine 10/25/2023 2:24 PM EDT UPPER EUS-ENDOSCOPIC ULTRASOUND Routine 10/25/2023 2:23 PM EDT CBC (WITH DIFF) Routine 10/25/2023 3:53 AM EDT COMPREHENSIVE METABOLIC PANEL Routine 10/25/2023 3:53 AM EDT BASIC METABOLIC PANEL Timed 10/24/2023 4:[address] CHEST W CONTRAST Routine 10/24/2023 1 :41 PM EDT CBC (WITH DIFF) Routine 10/24/2023 4:11 AM EDT COMPREHENSIVE METABOLIC PANEL Routine 10/24/2023 4:11 AM EDT PHOSPHORUS STAT Add-On 10/23/2023 4:27 PM EDT MAGNESIUM STAT Add-On 10/23/2023 4:27 PM EDT BASIC METABOLIC PANEL STAT 10/23/2023 4:27 PM EDT EKG 12-LEAD STAT 10/23/2023 1:40 PM EDT ABORH RECHECK STAT 10/23/2023 1:[address] ABDOMEN AND PELVIS W CONTRAST STAT 10/23/2023 1:10 PM EDT CBC (WITH DIFF) STAT 10/23/2023 12:32 PM EDT TYPE AND SCREEN ([facility]/FREDY) STAT 10/23/2023 12:32 PM EDT LIPASE STAT 10/23/2023 12:32 PM EDT COMPREHENSIVE METABOLIC PANEL STAT 10/23/2023 12:32 PM EDT documented in this encounter Results * (ABNORMAL) Comprehensive metabolic panel (10/27/2023 3:35 AM EDT) Glucose 157 65 - 199 mg/dL 10/27/2023 5:56 AM T [facility] Comment:Glucose Concentratio n >=200 mg/dL plus symptoms is consistent with Diabetes Mellitus. Blood Urea Nitrogen 12 10 - 20 mg/dL 10/27/2023 5:56 AM [facility] Creatinine 0.53(L) 0.80 - 1.50 mg/dL 10/27/2023 5:56 AM [facility] Sodium 131(L) 135 - 145 mMol/L 10/27/2023 5:56 AM [facility] Potassium 3.5 3.5 - 5.0 mMol/L 10/27/2023 5:56 AM [facility] Chloride 95(L) 98 - 107 mMol/L 10/27/2023 5:56 AM [facility] Carbon Dioxide 22 22 - 31 mMol/L 10/27/2023 5:56 AM [facility] Anion Gap 14 5 - 15 mMol/L 10/27/2023 5:56 AM [facility] Calcium 8.4(L) 8.5 - 10.5 mg/dL 10/27[facility]23 [facility] Protein, Total 6.2 6.1 - 8.0 g/dL 10/27/2023 5:56 AM EDT [facility] Albumin 3.5 3.2 - 5.2 g/dL 10/27/2023 5:56 AM EDT [facility] Aspartate Aminotransferase 73(H) <=39 unit/L 10/27/2023 5:56 AM EDT [facility] Alanine Aminotransferase 291(H) 0 - 55 unit/L 10/27/2023 5:56 AM [facility] Alkaline Phosphatase 329(H) 40 - 130 unit/L 10/27/2023 5:56 AM [facility] Bilirubin, Total 2.8(H) <=1.3 mg/dL 10/27/2023 5:56 AM [facility] Est Glomerular Filtration Rate - Male 101 mL/min/1. 73 m?? 10/27/2023 5:56 AM [facility] Comment: This patient's estimated GFR was [...] AM EDT Ros Gonzáles MD CHEMISTRY ORDERABLES [facility] [place] [address] * (ABNORMAL) Magnesium (10/27/2023 3:35 AM EDT) Magnesium 0.63(L) 0.69 - 1.07 mMol/L 10/27/2023 5:56 AM EDT [facility] Blood VENOUS BLOOD SPECIMEN / Unknown IP Care Team Draw / Unknown 10/27/2023 3:35 AM EDT 10/27/2023 3:47 AM EDT Ros Gonzáles MD CHEMISTRY ORDERABLES Performing Organization Address City/[facility]/ZIP Co de Phone Number [facility] [place] [address] * (ABNORMAL) Phosphorus (10/27/2023 3:35 AM EDT) Pathologist [facility] Phosphorus 2.4(L) 2.5 - 4.5 mg/dL 10/27/2023 5:56 AM EDT [facility] Blood VENOUS BLOOD SPECIMEN / Unknown IP Care Team Draw / Unknown 10/27/2023 3:35 AM EDT 10/27/2023 3:47 AM EDT Ros Gonzáles MD CHEMISTRY ORDERABLES Performing Organization Address City/[facility]/ZIP Co de Phone Number [facility] [place] [address] * (ABNORMAL) CBC (with Diff) (10/27/2023 3:35 AM EDT) [facility] White Blood Cell 9.79(H) 4.00 - 9.50 x10(3)/mc L 10/27/2023 3:54 AM EDT [facility] Red Blood Cell 3.65(L) 4.58 - 5.54 x10(6)/mc L 10/27/2023 3:54 AM EDT [facility] Hemoglobin 11.9(L) 13.7 - 16.5 g/dL 10/27/2023 3:54 AM EDT [facility] Hematocrit 34.1(L) 40.5 - 48.5 % 10/27/2023 3:54 AM EDT [facility] Mean Cell Volume 93.4(H) 82.9 - 93.1 fL 10/27/2023 3:54 AM [facility] Mean Cell Hemoglobin 32.6(H) 27.5 - 32.1 pg 10/27/2023 3:54 AM [facility] Mean Cell Hemoglobin Concentration 34.9 32.0 - 35.7 g/dL 10/27/2023 3:54 AM [facility] Platelet 196 145 - 357 x10(3)/mc L 10/27/2023 3:54 AM [facility] Mean Platelet Volume 12.0 7.6 - 12.9 fL 10/27/2023 3:54 AM [facility] RDW Standard Deviation 47.1(H) 36.0 - 45.0 fL 10/27/2023 3:54 AM [facility] RDW coefficient of variation 13.9(H) 11.4 - 13.8 % 10/27/2023 3:54 AM [facility] NRBC% auto 0.0 % 10/27/2023 3:54 AM [facility] NRBC Absolute 0.00 0.00 - 0.00 x10(3)/mc L 10/27/2023 3:54 AM [facility] Neutrophil % 80.7 % 10/27/2023 3:54 AM [facility] Neutrophil Absolute (ANC) - Automated 7.90(H) 1.70 - 6.10 x10(3)/mc L 10/27/2023 3:54 AM [facility] Lymph % 8.3 % 10/27/2023 3:54 AM [facility] Lymph Absolute 0.81(L) 0.90 - 3.20 x10(3)/mc L 10/27/2023 3:54 AM [facility] Monocyte % 9.3 % 10/27/2023 3:54 AM [facility] Monocyte Absolute 0.91(H) 0.30 - 0.90 x10(3)/mc L 10/27/2023 3:54 AM EDT [facility] Eos % 0.8 % 10/27/2023 3:54 AM EDT [facility] Eos Absolute 0.08 0.00 - 0.40 x10(3)/mc L 10/27/2023 3:54 AM EDT [facility] Basophil % 0.3 % 10/27/2023 3:54 AM EDT [facility] Baso Absolute 0.03 0.00 - 0.10 x10(3)/mc L 10/27/2023 3:54 AM EDT [facility] Immature Gran % 0.6 % 3:54 AM EDT [facility] Immature Gran Absolute 0.06(H) 0.00 - 0.04 x10(3)/mc L 10/27/2023 3:54 AM EDT [facility] Blood VENOUS BLOOD SPECIMEN / Unknown IP Care Team Draw / Unknown 10/27/2023 3:35 AM EDT 10/27/2023 3:47 AM EDT Ros Gonzáles MD HEMATOLOGY ORDERABLE S [facility] [place] [address] * (ABNORMAL) Comprehensive metabolic panel (10/26/2023 4:00 AM EDT) Glucose 136 65 - 199 mg/dL 10/26/2023 4:45 AM EDT [facility] Comment:Glucose Concentratio n >=200 mg/dL plus symptoms is consistent with Diabetes Mellitus. Blood Urea Nitrogen 19 10 - 20 mg/dL 10/26/2023 4:45 AM EDT [facility] Creatinine 0.69(L) 0.80 - 1.50 mg/dL 10/26/2023 4:45 AM EDT [facility] Sodium 131(L) 135 - 145 mMol/L 10/26/2023 4:45 AM EDT [facility] Potassium 3.6 3.5 - 5.0 mMol/L 10/26/2023 4:45 AM [facility] Chloride 94(L) 98 - 107 mMol/L 10/26/2023 4:45 AM [facility] Carbon Dioxide 24 22 - 31 mMol/L 10/26/2023 4:45 AM [facility] Anion Gap 13 5 - 15 mMol/L 10/26/2023 4:45 AM [facility] Calcium 8.7 8.5 - 10.5 mg/dL 10/26/2023 4:45 AM [facility] Protein, Total 6.2 6.1 - 8.0 g/dL 10/26/2023 4:45 AM [facility] Albumin 3.4 3.2 - 5.2 g/dL 10/26/2023 4:45 AM [facility] Aspartate Aminotransferase 132(H) <=39 unit/L 10/26/2023 4:45 AM [facility] Alanine Aminotransferase 400(H) 0 - 55 unit/L 10/26/2023 4:45 AM [facility] Alkaline Phosphatase 384(H) 40 - 130 unit/L 10/26/2023 4:45 AM [facility] Bilirubin, Total 3.6(H) <=1.3 mg/dL 10/26/2023 4:45 AM [facility] Est Glomerular Filtration Rate - Male 93 mL/min/1. 73 m?? 10/26/2023 4:45 AM [facility] Comment: This patient's estimated GFR was [...] Unknown IP Care Team Draw / Unknown 10/26/2023 4:00 AM EDT 10/26/2023 4:12 AM EDT Ros Gonzáles MD CHEMISTRY ORDERABLES Performing Organization Address City/[facility]/ZIP Co de Phone Number [facility] [place] [address] * (ABNORMAL) Magnesium (10/26/2023 4:00 AM EDT) Magnesium 0.65(L) 0.69 - 1.07 mMol/L 10/26/2023 4:45 AM EDT [facility] Blood VENOUS BLOOD SPECIMEN / Unknown IP Care Team Draw / Unknown 10/26/2023 4:00 AM EDT 10/26/2023 4:12 AM EDT Ros Gonzáles MD CHEMISTRY ORDERABLES Performing Organization Address City/[facility]/ZIP Co de Phone Number [facility] [place] [address] * Phosphorus (10/26/2023 4:00 AM EDT) Phosphorus 3.1 2.5 - 4.5 mg/dL 10/26/2023 4:45 AM EDT [facility] Blood VENOUS BLOOD SPECIMEN / Unknown IP Care Team Draw / Unknown 10/26/2023 4:00 AM EDT 10/26/2023 4:12 AM EDT Ros Gonzáles MD CHEMISTRY ORDERABLES [facility] [place] [address] * (ABNORMAL) CBC (with Diff) (10/26/2023 4:00 AM EDT) White Blood Cell 7.51 4.00 - 9.50 x10(3)/mc L 10/26/2023 4:47 AM [facility] Red Blood Cell 3.79(L) 4.58 - 5.54 x10(6)/mc L 10/26/2023 4:47 AM [facility] Hemoglobin 12.2(L) 13.7 - 16.5 g/dL 10/26/2023 4:47 AM [facility] Hematocrit 35.2(L) 40.5 - 48.5 % 10/26/2023 4:47 AM [facility] Mean Cell Volume 92.9 82.9 - 93.1 fL 10/26/2023 4:47 AM [facility] Mean Cell Hemoglobin 32.2(H) 27.5 - 32.1 pg 10/26/2023 4:47 AM [facility] Mean Cell Hemoglobin Concentration 34.7 32.0 - 35.7 g/dL 10/26/2023 4:47 AM [facility] Platelet 210 145 - 357 x10(3)/ L 10/26/2023 4:47 AM [facility] Mean Platelet Volume 11.7 7.6 - 12.9 fL 10/26/2023 4:47 AM [facility] RDW Standard Deviation 48.8(H) 36.0 - 45.0 fL 10/26/2023 4:47 AM [facility] RDW coefficient of variation 14.3(H) 11.4 - 13.8 % 10/26/2023 4:47 AM [facility] NRBC% auto 0.0 % 10/26/2023 4:47 AM [facility] NRBC Absolute 0.00 0.00 - 0.00 x10(3)/mc L 10/26/2023 4:47 AM [facility] Neutrophil % 80.3 % 10/26/2023 4:47 AM [facility] Neutrophil Absolute (ANC) - Automated 6.04 1.70 - 6.10 x10(3)/mc L 10/26/2023 4:47 AM EDT [facility] Lymph % 11.1 % 10/26/2023 4:47 AM EDT [facility] Lymph Absolute 0.83(L) 0.90 - 3.20 x10(3)/mc L 10/26/2023 4:47 AM EDT [facility] Monocyte % 6.8 % 10/26/2023 4:47 AM EDT [facility] Monocyte Absolute 0.51 0.30 - 0.90 x10(3)/mc L 10/26/2023 4:47 AM EDT [facility] Eos % 1.1 % 10/26/2023 4:47 AM EDT [facility] Eos Absolute 0.08 0.00 - 0.40 x10(3)/mc L 10/26/2023 4:47 AM EDT [facility] Basophil % 0.3 % 10/26/2023 4:47 AM EDT [facility] Baso Absolute 0.02 0.00 - 0.10 x10(3)/mc L 10/26/2023 4:47 AM EDT [facility] Immature Gran % 0.4 % 4:47 AM EDT [facility] Immature Gran Absolute 0.03 0.00 - 0.04 x10(3)/mc L 10/26/2023 4:47 AM EDT [facility] Blood VENOUS BLOOD SPECIMEN / Unknown IP Care Team Draw / Unknown 10/26/2023 4:00 AM EDT 10/26/2023 4:13 AM EDT Ros Gonzáles MD HEMATOLOGY ORDERABLE S [facility] [place] [address] * XR ERCP (10/25/2023 4:40 PM EDT) Narrative [facility] - 10/25/2023 4:45 PM EDT See PACS for result report. Ros Gonzáles MD [facility] [employer] [facility] Ar[facility] * (ABNORMAL) Cytology FNA (10/25/2023 3:19 PM EDT) Case Report Medical Cytology Report ? Case: [id number] ? Authorizing Provider: ??Ros Gonzáles MD ?Collected: ? 10/25/2023 1519 ? Ordering Location: ? Gastroenterology at [facility] ?? Received: ?10/25/2023 1627 ? Pathologist: ? Garrick Vuong MD ? Specimen: ?Pancreas, Head, mass ? 10/28/2023 11:54 AM EDT [facility] Specimen Source Pancreas, Head (EUS-guided FNA) 10/28/2023 11:54 AM EDT [facility] Final Diagnosis Positive for malignancy 10/28/2023 11:54 AM EDT [facility] Diagnosis Discussion Adenocarcinoma. (Cell block was examined.) 10/28/2023 11:54 AM [facility] Specimen Adequacy Satisfactory for evaluation. 10/28/2023 11:54 AM [facility] Additional Studies Block Antibody Result A2 [...] The assays were performed according to the it project coordinator's instructions using anti MLH-1 (ES05), anti-MSH-2 ([id number]), andti-MSH-6 (44), and anti-PMS-2 (MRQ-28) antibodies. 10/28/2023 11:54 AM [facility] Disclaimer(s) Formalin-fixed, paraffin-embedded tissue sections are [...] and other diagnostic tests. 10/28/2023 11:54 AM [facility] Clinical Information 83 yrs old male/EUS/ERCP/ pancreas head mass, malignant biliary obstruction 10/28/2023 11:54 AM [facility] Immediate Assessment Fine Needle Aspiration Immediate [...] Discussion for final interpretation. 10/28/2023 11:54 AM EDT [facility] Gross Description Received in formalin, approximately 45 mL total volume of cloudy, red fluid with clots. Total preparation: Diff-Quik slide(s): 4, Pap Stain slide(s): 4, and Cell Block: 1. 10/28/2023 11:54 AM EDT [facility] Result Note THIS RESULT REQUIRES PHYSICIAN/CRYSTAL FOLLOW UP(A) 10/28/2023 11:54 AM EDT [facility] Fine Needle Aspirate STRUCTURE OF HEAD OF PANCREAS / Unknown Non Blood Collection / Unknown 10/25/2023 3:19 PM EDT 10/25/2023 4:27 PM EDT Ros Gonzáles MD PATHOLOGY/CYTOLOGY O RDERABLES [facility] [place] [address] * ERCP (10/25/2023 2:24 PM EDT) ERCP [facility] Endoscopy Procedure Date: 10/25/2023 2:24 PM ? Patient Name: Benny Zurita ? Date of : 1940 ? Age: 83 ? Order #: [id number] ? Instrument Name: [id number] ? Procedure: ? ERCP Providers: ? Aaron Alvarado ? Mariah Olmos, ? Fountain Supervisor Referring MD: ?Andres Benitez MD Complications: ? [...] (10/25/2023 2:23 PM EDT) UPPER ENDOSCOPIC ULTRASOUND [facility] Endoscopy Procedure Date: 10/25/2023 2:23 PM ? Patient Name: Benny Zurita ? Date of : 1940 ? Age: 83 ? Order #: [id number] ? Instrument Name: [id number] ? Procedure: ? Upper EUS Patient Profile: ? 83m with suspected malignant ? biliary obstruction Providers: ? Aaron Alvarado ? Mariah Olmos, ? Fountain Supervisor Referring MD: ? Medicines: ? See the [...] without invasion ? - Using a 22G Pulsar Vascular needle with stylet through ? Duodenum, FNB [...] GENERAL SURGICAL ORD ERABLES [facility] * (ABNORMAL) CBC (with Diff) (10/25/2023 3:53 AM EDT) White Blood Cell 4.52 4.00 - 9.50 x10(3)/mc L 10/25/2023 4:28 AM EDT [facility] Red Blood Cell 3.76(L) 4.58 - 5.54 x10(6)/mc L 10/25/2023 4:28 AM EDT [facility] Hemoglobin 12.2(L) 13.7 - 16.5 g/dL 10/25/2023 4:28 AM EDT [facility] Hematocrit 34.1(L) 40.5 - 48.5 % 10/25/2023 4:28 AM EDT [facility] Mean Cell Volume 90.7 82.9 - 93.1 fL 10/25/2023 4:28 AM EDT [facility] Mean Cell Hemoglobin 32.4(H) 27.5 - 32.1 pg 10/25/2023 4:28 AM [facility] Mean Cell Hemoglobin Concentration 35.8(H) 32.0 - 35.7 g/dL 10/25/2023 4:28 AM [facility] Platelet 193 145 - 357 x10(3)/mc L 10/25/2023 4:28 AM [facility] Mean Platelet Volume 11.4 7.6 - 12.9 fL 10/25/2023 4:28 AM [facility] RDW Standard Deviation 46.3(H) 36.0 - 45.0 fL 10/25/2023 4:28 AM [facility] RDW coefficient of variation 13.9(H) 11.4 - 13.8 % 10/25/2023 4:28 AM [facility] NRBC% auto 0.0 % 10/25/2023 4:28 AM [facility] NRBC Absolute 0.00 0.00 - 0.00 x10(3)/mc L 10/25/2023 4:28 AM [facility] Neutrophil % 63.6 % 10/25/2023 4:28 AM [facility] Neutrophil Absolute (ANC) - Automated 2.88 1.70 - 6.10 x10(3)/mc L 10/25/2023 4:28 AM [facility] Lymph % 16.8 % 10/25/2023 4:28 AM [facility] Lymph Absolute 0.76(L) 0.90 - 3.20 x10(3)/mc L 10/25/2023 4:28 AM [facility] Monocyte % 11.1 % 10/25/2023 4:28 AM [facility] Monocyte Absolute 0.50 0.30 - 0.90 x10(3)/mc L 10/25/2023 4:28 AM [facility] Eos % 6.9 % 10/25/2023 4:28 AM [facility] Eos Absolute 0.31 0.00 - 0.40 x10(3)/mc L 10/25/2023 4:28 AM EDT [facility] Basophil % 0.9 % 10/25/2023 4:28 AM EDT [facility] Baso Absolute 0.04 0.00 - 0.10 x10(3)/mc L 10/25/2023 4:28 AM EDT [facility] Immature Gran % 0.7 % 4:28 AM EDT [facility] Immature Gran Absolute 0.03 0.00 - 0.04 x10(3)/mc L 10/25/2023 4:28 AM EDT [facility] Blood VENOUS BLOOD SPECIMEN / Unknown IP Care Team Draw / Unknown 10/25/2023 3:53 AM EDT 10/25/2023 4:17 AM EDT Rj Rizvi MD HEMATOLOGY ORDERABLE S [facility] [place] [address] * (ABNORMAL) Comprehensive metabolic panel (10/25/2023 3:53 AM EDT) Glucose 121 65 - 199 mg/dL 10/25/2023 4:45 AM EDT [facility] Comment:Glucose Concentratio n >=200 mg/dL plus symptoms is consistent with Diabetes Mellitus. Blood Urea Nitrogen 20 10 - 20 mg/dL 10/25/2023 4:45 AM EDT [facility] Creatinine 0.70(L) 0.80 - 1.50 mg/dL 10/25/2023 4:45 AM EDT [facility] Sodium 131(L) 135 - 145 mMol/L 10/25/2023 4:45 AM EDT [facility] Potassium 3.7 3.5 - 5.0 mMol/L 10/25/2023 4:45 AM EDT [facility] Chloride 97(L) 98 - 107 mMol/L 10/25/2023 4:45 AM [facility] Carbon Dioxide 22 22 - 31 mMol/L 10/25/2023 4:45 AM [facility] Anion Gap 12 5 - 15 mMol/L 10/25/2023 4:45 AM [facility] Calcium 8.8 8.5 - 10.5 mg/dL 10/25/2023 4:45 AM [facility] Protein, Total 5.9(L) 6.1 - 8.0 g/dL 10/25/2023 4:45 AM [facility] Albumin 3.3 3.2 - 5.2 g/dL 10/25/2023 4:45 AM [facility] Aspartate Aminotransferase 190(H) <=39 unit/L 10/25/2023 4:45 AM [facility] Alanine Aminotransferase 458(H) 0 - 55 unit/L 10/25/2023 4:45 AM [facility] Alkaline Phosphatase 366(H) 40 - 130 unit/L 10/25/2023 4:45 AM [facility] Bilirubin, Total 8.5(H) <=1.3 mg/dL 10/25/2023 4:45 AM [facility] Est Glomerular Filtration Rate - Male 93 mL/min/1. 73 m?? 10/25/2023 4:45 AM [facility] Comment: This patient's estimated GFR was [...] Unknown IP Care Team Draw / Unknown 10/25/2023 3:53 AM EDT 10/25/2023 4:17 AM EDT Rj Rizvi MD CHEMISTRY ORDERABLES [facility] [place] [address] * (ABNORMAL) Basic Metabolic Panel (10/24/2023 4:17 PM EDT) Glucose 147 65 - 199 mg/dL 10/24/2023 4:48 PM EDT [facility] Comment:Glucose Concentratio n >=200 mg/dL plus symptoms is consistent with Diabetes Mellitus. Blood Urea Nitrogen 17 10 - 20 mg/dL 10/24/2023 4:48 PM EDT [facility] Creatinine 0.68(L) 0.80 - 1.50 mg/dL 10/24/2023 4:48 PM EDT [facility] Sodium 131(L) 135 - 145 mMol/L 10/24/2023 4:48 PM EDT [facility] Potassium 3.5 3.5 - 5.0 mMol/L 10/24/2023 4:48 PM EDT [facility] Chloride 94(L) 98 - 107 mMol/L 10/24/2023 4:48 PM EDT [facility] Carbon Dioxide 26 22 - 31 mMol/L 10/24/2023 4:48 PM EDT [facility] Anion Gap 11 5 - 15 mMol/L 10/24/2023 4:48 PM EDT [facility] Calcium 9.0 8.5 - 10.5 mg/dL 10/24/2023 4:48 PM EDT [facility] Est Glomerular Filtration Rate - Male 93 mL/min/1. 73 m?? 10/24/2023 4:48 PM EDT [facility] Comment: This patient's estimated GFR was [...] PM EDT Rj Rizvi MD CHEMISTRY ORDERABLES [facility] [place] [address] * CT Chest w Contrast (10/24/2023 1:41 PM EDT) WORKSTATION ID [id number] RAD Anatomical Region Laterality Modality Chest Computed Tomogra phy Impressions 10/24/2023 5:21 PM EDT No metastatic disease in the chest. Thank you for letting us participate in the care of this patient. ??If you are a health care provider and have any questions regarding this report, please contact the number below. ??For patients who have questions please contact the health healthcare sales representative that requested your imaging first. ? Electronically signed by: Mariam Johnson MD, [facility] ([phone]), at 10/24/2023 5:21 PM Narrative 10/24/2023 5:21 PM EDT EXAMINATION: CT [...] patients who have questions please contactthe health healthcare sales representative that requested your imaging first. Electronically signed by: Mariam Johnson MD, [facility]([phone]), at 10/24/2023 5:21 PM Rj Rizvi MD IMG CT ORDERABLES * (ABNORMAL) CBC (with Diff) (10/24/2023 4:11 AM EDT) White Blood Cell 5.21 4.00 - 9.50 x10(3)/mc L 10/24/2023 4:53 AM [facility] Red Blood Cell 3.79(L) 4.58 - 5.54 x10(6)/mc L 10/24/2023 4:53 AM [facility] Hemoglobin 12.3(L) 13.7 - 16.5 g/dL 10/24/2023 4:53 AM [facility] Hematocrit 34.0(L) 40.5 - 48.5 % 10/24/2023 4:53 AM [facility] Mean Cell Volume 89.7 82.9 - 93.1 fL 10/24/2023 4:53 AM [facility] Mean Cell Hemoglobin 32.5(H) 27.5 - 32.1 pg 10/24/2023 4:53 AM [facility] Mean Cell Hemoglobin Concentration 36.2(H) 32.0 - 35.7 g/dL 10/24/2023 4:53 AM [facility] Platelet 204 145 - 357 x10(3)/mc L 10/24/2023 4:53 AM [facility] Mean Platelet Volume 11.6 7.6 - 12.9 fL 10/24/2023 4:53 AM [facility] RDW Standard Deviation 44.2 36.0 - 45.0 fL 10/24/2023 4:53 AM [facility] RDW coefficient of variation 13.4 11.4 - 13.8 % 10/24/2023 4:53 AM [facility] NRBC% auto 0.0 % 10/24/2023 4:53 AM [facility] NRBC Absolute 0.00 0.00 - 0.00 x10(3)/mc L 10/24/2023 4:53 AM EDT [facility] Neutrophil % 70.5 % 10/24/2023 4:53 AM EDT [facility] Neutrophil Absolute (ANC) - Automated 3.68 1.70 - 6.10 x10(3)/mc L 10/24/2023 4:53 AM EDT [facility] Lymph % 15.2 % 10/24/2023 4:53 AM EDT [facility] Lymph Absolute 0.79(L) 0.90 - 3.20 x10(3)/mc L 10/24/2023 4:53 AM EDT [facility] Monocyte % 10.6 % 10/24/2023 4:53 AM EDT [facility] Monocyte Absolute 0.55 0.30 - 0.90 x10(3)/mc L 10/24/2023 4:53 AM EDT [facility] Eos % 2.5 % 10/24/2023 4:53 AM EDT [facility] Eos Absolute 0.13 0.00 - 0.40 x10(3)/mc L 10/24/2023 4:53 AM EDT [facility] Basophil % 0.6 % 10/24/2023 4:53 AM EDT [facility] Baso Absolute 0.03 0.00 - 0.10 x10(3)/mc L 10/24/2023 4:53 AM EDT [facility] Immature Gran % 0.6 % 4:53 AM EDT [facility] Immature Gran Absolute 0.03 0.00 - 0.04 x10(3)/mc L 10/24/2023 4:53 AM EDT [facility] Blood VENOUS BLOOD SPECIMEN / Unknown IP Care Team Draw / Unknown 10/24/2023 4:11 AM EDT 10/24/2023 4:43 AM EDT Rj Rizvi MD HEMATOLOGY ORDERABLE S [facility] [place] [address] * (ABNORMAL) Comprehensive metabolic panel (10/24/2023 4:11 AM EDT) Glucose 149 65 - 199 mg/dL 10/24/2023 5:55 AM [facility] Comment:Glucose Concentratio n >=200 mg/dL plus symptoms is consistent with Diabetes Mellitus. Blood Urea Nitrogen 17 10 - 20 mg/dL 10/24/2023 5:55 AM [facility] Creatinine 0.80 0.80 - 1.50 mg/dL 10/24/2023 5:55 AM [facility] Sodium 133(L) 135 - 145 mMol/L 10/24/2023 5:55 AM [facility] Potassium 3.9 3.5 - 5.0 mMol/L 10/24/2023 5:55 AM [facility] Chloride 99 98 - 107 mMol/L 10/24/2023 5:55 AM [facility] Carbon Dioxide 22 22 - 31 mMol/L 10/24/2023 5:55 AM [facility] Anion Gap 12 5 - 15 mMol/L 10/24/2023 5:55 AM [facility] Calcium 8.8 8.5 - 10.5 mg/dL 10/24/2023 5:55 AM [facility] Protein, Total 6.0(L) 6.1 - 8.0 g/dL 10/24/2023 5:55 AM [facility] Albumin 3.4 3.2 - 5.2 g/dL 10/24/2023 5:55 AM [facility] Aspartate Aminotransferase 224(H) <=39 unit/L 10/24/2023 5:55 AM [facility] Alanine Aminotransferase 498(H) 0 - 55 unit/L 10/24/2023 5:55 AM [facility] Alkaline Phosphatase 359(H) 40 - 130 unit/L 10/24/2023 5:55 AM EDT [facility] Bilirubin, Total 7.8(H) <=1.3 mg/dL 10/24/2023 5:55 AM EDT [facility] Est Glomerular Filtration Rate - Male 89 mL/min/1. 73 m?? 10/24/2023 5:55 AM EDT [facility] Comment: This patient's estimated GFR was [...] IP Care Team Draw / Unknown 10/24/2023 4:11 AM EDT 10/24/2023 4:43 AM EDT Rj Rizvi MD CHEMISTRY ORDERABLES [facility] [place] [address] * Phosphorus (10/23/2023 4:27 PM EDT) Phosphorus 3.6 2.5 - 4.5 mg/dL 10/23/2023 7:35 PM EDT [facility] Blood VENOUS BLOOD SPECIMEN / Unknown IP Care Team Draw / Unknown 10/23/2023 4:27 PM EDT 10/23/2023 4:35 PM EDT Rj Rizvi MD CHEMISTRY ORDERABLES [facility] [place] [address] * Magnesium (10/23/2023 4:27 PM EDT) Pathologist [facility] Magnesium 0.76 0.69 - 1.07 mMol/L 10/23/2023 7:35 PM EDT [facility] Blood VENOUS BLOOD SPECIMEN / Unknown IP Care Team Draw / Unknown 10/23/2023 4:27 PM EDT 10/23/2023 4:35 PM EDT Rj Rizvi MD CHEMISTRY ORDERABLES [facility] [place] [address] * (ABNORMAL) Basic Metabolic Panel (10/23/2023 4:27 PM EDT) [facility] Glucose 164 65 - 199 mg/dL 10/23/2023 5:36 PM EDT [facility] Comment:Glucose Concentratio n >=200 mg/dL plus symptoms is consistent with Diabetes Mellitus. Blood Urea Nitrogen 16 10 - 20 mg/dL 10/23/2023 5:36 PM EDT [facility] Creatinine 0.85 0.80 - 1.50 mg/dL 10/23/2023 5:36 PM EDT [facility] Sodium 134(L) 135 - 145 mMol/L 10/23/2023 5:36 PM EDT [facility] Potassium 2.9(LLL) 3.5 - 5.0 mMol/L 10/23/2023 5:36 PM EDT [facility] Chloride 94(L) 98 - 107 mMol/L 10/23/2023 5:36 PM EDT [facility] Carbon Dioxide 26 22 - 31 mMol/L 10/23/2023 5:36 PM EDT [facility] Anion Gap 14 5 - 15 mMol/L 10/23/2023 5:36 PM EDT [facility] Calcium 9.1 8.5 - 10.5 mg/dL 10/23/2023 5:36 PM EDT [facility] Est Glomerular Filtration Rate - Male 87 mL/min/1. 73 m?? 10/23/2023 5:36 PM EDT [facility] Comment: This patient's estimated GFR was [...] IP Care Team Draw / Unknown 10/23/2023 4:27 PM EDT 10/23/2023 4:35 PM EDT Anjum Biggs MD CHEMISTRY ORDERABLES [facility] [place] [address] * EKG 12 Lead (10/23/2023 1:40 PM EDT) Ventricular rate 56 BPM MUSE SYSTEM Atrial Rate 56 BPM MUSE SYSTEM P-R Interval 146 ms MUSE SYSTEM QRS Duration 122 ms MUSE SYSTEM Q-T Interval 474 ms MUSE SYSTEM QTC Calculated (Bezet) 457 ms MUSE SYSTEM Calculated P [place] 46 degrees MUSE SYSTEM Calculated R [place] -59 degrees MUSE SYSTEM Calculated T [place] 43 degrees MUSE SYSTEM INTERPRETATION Sinus bradycardia with marked sinus arrhythmia Left anterior fascicular block Left ventricular hypertrophy with QRS widening ( R in aVL , [place] product ) Possible Lateral infarct , age undetermined Abnormal ECG No previous ECGs available Confirmed by Devon Leo MD ([id number]) on 10/24/2023 2:23:18 PM MUSE SYSTEM 10/23/2023 1:40 PM EDT 10/24/2023 2:23 PM EDT Leia Rincon MD ECG ORDERABLES MUSE SYSTEM * ABORH RECHECK (10/23/2023 1:24 PM EDT) AB[facility] Recheck O POSITIVE 10/23/2023 2:12 PM EDT [facility] Blood VENOUS BLOOD SPECIMEN / Unknown IP Care Team Draw / Unknown 10/23/2023 1:24 PM EDT 10/23/2023 1:29 PM EDT Leia Rincon MD BLOOD BANK LAB ORDER RICHELLE [facility] [place] [address] * CT Abdomen & Pelvis w Contrast (10/23/2023 1:10 PM EDT) [facility] [place] WORKSTATION ID [id number] [facility] Anatomical Region Laterality Modality Abdomen, Pelvis Computed [...] who have questions please contact the health healthcare sales representative that requested your imaging first. ? Electronically signed by: Davy Sinclair MD, [facility] ([phone]), at 10/23/2023 1:26 PM Narrative 10/23/2023 1:26 [...] patients who have questions please contactthe health healthcare sales representative that requested your imaging first. Electronically signed by: Davy Sinclair MD, [facility]([phone]), at 10/23/2023 1:26 PM Leia Rincon MD [facility] CT ORDERABLES * (ABNORMAL) CBC (with Diff) (10/23/2023 12:32 PM EDT) White Blood Cell 4.60 4.00 - 9.50 x10(3)/mc L 10/23/2023 1:17 PM [facility] Red Blood Cell 4.00(L) 4.58 - 5.54 x10(6)/mc L 10/23/2023 1:17 PM [facility] Hemoglobin 13.1(L) 13.7 - 16.5 g/dL 10/23/2023 1:17 PM [facility] Hematocrit 36.2(L) 40.5 - 48.5 % 10/23/2023 1:17 PM [facility] Mean Cell Volume 90.5 82.9 - 93.1 fL 10/23/2023 1:17 PM [facility] Mean Cell Hemoglobin 32.8(H) 27.5 - 32.1 pg 10/23/2023 1:17 PM [facility] Mean Cell Hemoglobin Concentration 36.2(H) 32.0 - 35.7 g/dL 10/23/2023 1:17 PM [facility] Platelet 233 145 - 357 x10(3)/mc L 10/23/2023 1:17 PM [facility] Mean Platelet Volume 11.4 7.6 - 12.9 fL 10/23/2023 1:17 PM [facility] RDW Standard Deviation 43.7 36.0 - 45.0 fL 10/23/2023 1:17 PM [facility] RDW coefficient of variation 13.2 11.4 - 13.8 % 10/23/2023 1:17 PM [facility] NRBC% auto 0.0 % 10/23/2023 1:17 PM [facility] NRBC Absolute 0.00 0.00 - 0.00 x10(3)/mc L 10/23/2023 1:17 PM EDT [facility] Neutrophil % 70.4 % 10/23/2023 1:17 PM EDT [facility] Neutrophil Absolute (ANC) - Automated 3.24 1.70 - 6.10 x10(3)/mc L 10/23/2023 1:17 PM EDT [facility] Lymph % 15.4 % 10/23/2023 1:17 PM EDT [facility] Lymph Absolute 0.71(L) 0.90 - 3.20 x10(3)/mc L 10/23/2023 1:17 PM EDT [facility] Monocyte % 10.0 % [facility] Mon[facility] Absolute 0.46 0.30 - 0.90 x10(3)/mc L 10/23/2023 1:17 PM EDT [facility] Eos % 2.6 % 10/23/2023 1:17 PM EDT [facility] Eos Absolute 0.12 0.00 - 0.40 x10(3)/mc L 10/23/2023 1:17 PM EDT [facility] Basophil % 0.9 % 10/23/2023 1:17 PM EDT [facility] Baso Absolute 0.04 0.00 - 0.10 x10(3)/mc L 10/23/2023 1:17 PM EDT [facility] Immature Gran % 0.7 % 1:17 PM EDT [facility] Immature Gran Absolute 0.03 0.00 - 0.04 x10(3)/mc L 10/23/2023 1:[facility] Blood VENOUS BLOOD SPECIMEN / Unknown Venipuncture / Unknown 10/23/2023 12:32 PM EDT 10/23/2023 12:41 PM EDT Leia Rincon MD HEMATOLOGY ORDERABLE S [facility] [place] [address] * Type and screen ([facility]/FREDY) (10/23/2023 12:32 PM EDT) [facility] ABORH Type O POSITIVE 10/23/2023 1:31 PM EDT [facility] PATIENT HISTORY Not Found 10/23/2023 1:31 PM EDT [facility] Expires at [id number] on: 10-26-2023 10/23/2023 1:31 PM EDT [facility] ANTIBODY SCREEN AUTOMATED Negative 10/23/2023 1:31 PM EDT [facility] T&S only valid at [facility] 10/23/2023 1:31 PM EDT [facility] Blood VENOUS BLOOD SPECIMEN / Unknown Venipuncture / Unknown 10/23/2023 12:32 PM EDT 10/23/2023 12:37 PM EDT Narrative [facility] - 10/23/2023 1:31 PM EDT This Type and Screen result is only valid at the [facility] Leia Rincon MD BLOOD BANK LAB ORDER RICHELLE [facility] [place] [place] [address] * Lipase (10/23/2023 12:32 PM EDT) [facility] Lipase 49 0 - 60 unit/L 10/23/2023 1:11 PM EDT [facility] Blood VENOUS BLOOD SPECIMEN / Unknown Venipuncture / Unknown 10/23/2023 12:32 PM EDT 10/23/2023 12:41 PM EDT Leia Rincon MD CHEMISTRY ORDERABLES [facility] [place] [address] * (ABNORMAL) Comprehensive metabolic panel (10/23/2023 12:32 PM EDT) Glucose 186 65 - 199 mg/dL 10/23/2023 1:13 PM [facility] Comment:Glucose Concentratio n >=200 mg/dL plus symptoms is consistent with Diabetes Mellitus. Blood Urea Nitrogen 17 10 - 20 mg/dL 10/23/2023 1:13 PM [facility] Creatinine 0.79(L) 0.80 - 1.50 mg/dL 10/23/2023 1:13 PM [facility] Sodium 130(L) 135 - 145 mMol/L 10/23/2023 1:13 PM [facility] Potassium 2.9(LLL) 3.5 - 5.0 mMol/L 10/23/2023 1:13 PM [facility] Chloride 92(L) 98 - 107 mMol/L 10/23/2023 1:13 PM [facility] Carbon Dioxide 24 22 - 31 mMol/L 10/23/2023 1:13 PM [facility] Anion Gap 14 5 - 15 mMol/L 10/23/2023 1:13 PM [facility] Calcium 9.1 8.5 - 10.5 mg/dL 10/23/2023 1:13 PM [facility] Protein, Total 6.5 6.1 - 8.0 g/dL 10/23/2023 1:13 PM [facility] Albumin 3.8 3.2 - 5.2 g/dL 10/23/2023 1:13 PM [facility] Aspartate Aminotransferase 258(H) <=39 unit/L 10/23/2023 1:13 PM [facility] Alanine Aminotransferase 577(H) 0 - 55 unit/L 10/23/2023 1:13 PM [facility] Alkaline Phosphatase 375(H) 40 - 130 unit/L 10/23/2023 1:13 PM [facility] Bilirubin, Total 8.6(H) <=1.3 mg/dL 10/23/2023 1:13 PM EDT [facility] Est Glomerular Filtration Rate - Male 89 mL/min/1. 73 m?? 10/23/2023 1:13 PM EDT [facility] Comment: This patient's estimated GFR was [...] Foundation Blood VENOUS BLOOD SPECIMEN / Unknown Venipuncture / Unknown 10/23/2023 12:32 PM EDT 10/23/2023 12:41 PM EDT Leia Rincon MD CHEMISTRY ORDERABLES [facility] [place] [phone] documented in this encounter Visit Diagnoses Not on filedocumented in this encounter Admitting Diagnoses Diagnosis Cholestatic liver disease Other specified disorders of liver documented in this encounter Administered Medications Inactive Administered Medications - up to 3 most recent administrations Medication Order MAR Action Action Date Dose Rate Site bisacodyL (Dulcolax) suppository 10 mg 10 mg, Rectal, DAILY PRN, Starting on Wed10/27/23 at 0830, Until Wed10/27/23 at 1717, Constipation, Routine Given 10/27/2023 12:24 PM EDT 10 mg enoxaparin (Lovenox) (40 mg/0.4 mL) subcutaneous injection 40 mg 40 mg, Subcutaneous, NIGHTLY, First dose on Wed10/23/23 at 2100, Until Discontinued, Routine Given 10/26/2023 9:34 PM EDT 40 mg Given 10/25/2023 8:57 PM EDT 40 mg Given 10/24/2023 8:39 PM EDT 40 mg ketorolac (Toradol) (30 mg/mL) injection 15 mg 15 mg, Intravenous, EVERY 8 HOURS PRN, Starting on 10/25/23 at 1755, Until Wed10/27/23 at 1717, Pain, first line pain, Routine Given 10/26/2023 12:00 AM EDT 15 mg melatonin tablet 3 mg 3 mg, Oral, NIGHTLY PRN, Starting on 10/23/23 at 2027, Until Wed10/27/23 at 1717, Sleep, Sleep, Routine Given 10/26/2023 9:34 PM EDT 3 mg Given 10/25/2023 8:58 PM EDT 3 mg Given 10/24/2023 8:40 PM EDT 3 mg montelukast (Singulair) tablet 5 mg 5 mg, Oral, NIGHTLY, First dose on 10/23/23 at 2100, Until Discontinued, Routine Given 10/26/2023 9:34 PM EDT 5 mg Given 10/25/2023 8:58 PM EDT 5 mg Given 10/24/2023 8:39 PM EDT 5 mg ondansetron (pf) (Zofran) (2 mg/mL) injection 4 mg 4 mg, Intravenous, EVERY 8 HOURS PRN, Starting on 10/23/23 at 2027, Until Wed10/27/23 at 1717, Nausea, 4 mg,Oral,EVERY 8 HOURS PRN, Nausea,Vomiting If multiple antiemetics are ordered, use ondansetron first. May repeat times one in 30 minutes if ineffective. ondansetron ODT (Zofran-ODT) disintegrating tablet 4 mg 4 mg, Oral, EVERY 8 HOURS PRN, Starting on 10/23/23 at 2027, Until Wed10/27/23 at 1717, Nausea, If multiple antiemetics are ordered, use ondansetron first. PO Preferred. If patient unable to take PO, may give IV if ordered. May repeat times one in 45 minutes if ineffective. , Routine Given 10/26/2023 2:11 PM EDT 4 mg oxyCODONE (Roxicodone) tablet 5 mg 5 mg, Oral, EVERY 4 HOURS PRN, Starting on 10/25/23 at 1754, Until Wed10/27/23 at 1717, Pain, 2nd line pain, Routine Given 10/26/2023 4:45 AM EDT 5 mg polyethylene glycoL (Miralax) packet 17 g 17 g, Oral, DAILY, First dose on Wed10/26/23 at 2100, Until Discontinued, Routine Given 10/26/2023 9:34 PM EDT 17 g senna-docusate (Pericolace) 8.6-50 mg per tablet 2 tablet 2 tablet, Oral, 2 TIMES DAILY, First dose on Wed10/26/23 at 1030, Until Discontinued, Routine Given 10/27/2023 8:13 AM EDT 2 tablets Given 10/26/2023 9:35 PM EDT 2 tablets Given 10/26/2023 10:26 AM EDT 2 tablets tamsulosin (Flomax) capsule 0.4 mg 0.4 mg, Oral, NIGHTLY, First dose (after last modification) on Wed10/23/23 at 2115, Until Discontinued, DO NOT CRUSH OR CHEW, Routine Given 10/26/2023 9:35 PM EDT 0.4 mg Given 10/25/2023 8:57 PM EDT 0.4 mg Given 10/24/2023 8:39 PM EDT 0.4 mg documented in this encounter Active and Recently Administered Medications Times are shown in EDT. Scheduled Medication Order 10/25/2023 10/26/2023 10/27/2023 enoxaparin (Lovenox) (40 mg/0.4 mL) subcutaneous injection 40 mg 40 mg, Subcutaneous, NIGHTLY, First dose on Wed10/23/23 at 2100, Until Discontinued, Routine 1337 (MAR Hold - Provider: Admin Adt - Reason: Transfer to a Procedural area)1726 (MAR Unhold - Provider: Admin Adt)2056 (Given - Provider: Vanesa Vance RN) 2133 (Given - Provider: Peter Dixon RN) fentaNYL (PF) (50 mcg/mL) injection 50 mcg (COMPLETED) 50 mcg, Intravenous, ONCE, 1 dose, On Wed10/25/23 at 1700, Endoscopy (Recovery-Hospital Unit), Routine 1700 (Given - Provider: Alethea Barnes RN) magnesium oxide (Mag-Ox) tablet 400 mg (COMPLETED) 400 mg, Oral, ONCE, 1 dose, On Wed10/26/23 at 0600, Routine 0636 (Given - Provider: Vanesa Vance, CARISSA) magnesium sulfate 2 g in sterile water 50 mL infusion (COMPLETED) 2 g, Intravenous, ONCE, 1 dose, On Wed10/27/23 at 0845, Administer over 120 Minutes 0942 (New Bag - Provider: Rosemary Guzmán RN)1142 (Stopped - Provider: Rosemary Guzmán, CARISSA) montelukast (Singulair) tablet 5 mg 5 mg, Oral, NIGHTLY, First dose on Wed10/23/23 at 2100, Until Discontinued, Routine 1337 (APR Hold - Provider: Admin Adt - Reason: Transfer to a Procedural area)1726 (APR Unhold - Provider: Admin Adt)2057 (Given - Provider: Vanesa Vance RN) 2133 (Given - Provider: Peter Dixon RN) polyethylene glycoL (Miralax) packet 17 g 17 g, Oral, DAILY, First dose on Wed10/26/23 at 2100, Until Discontinued, Routine 2133 (Given - Provider: Peter Dixon RN) potassium chloride ER (Klor-Con M) crystal tablet 40 mEq (COMPLETED) 40 mEq, Oral, ONCE, 1 dose, On Wed10/26/23 at 1345, potassium chloride ER particle/crystal tablets (Klor-Con M) may be broken in half and each half swallowed separately. Tablets can be dissolved in ~4 ounces of water; allow ~2 minutes to dissolve, stir well and drink immediately. Do not crush, chew, or suck on tablet., Routine 1403 (Given - Provider: Rosemary Guzmán RN) senna-docusate (Pericolace) 8.6-50 mg per tablet 2 tablet 2 tablet, Oral, 2 TIMES DAILY, First dose on Wed10/26/23 at 1030, Until Discontinued, Routine 1026 (Given - Provider: Rosemary Guzmán RN)2134 (Given - Provider: Peter Dixon RN) 0813 (Given - Provider: Rosemary Guzmán, CARISSA) tamsulosin (Flomax) capsule 0.4 mg 0.4 mg, Oral, NIGHTLY, First dose (after last modification) on Wed10/23/23 at 2115, Until Discontinued, DO NOT CRUSH OR CHEW, Routine 1337 (APR Hold - Provider: Admin Adt - Reason: Transfer to a Procedural area)1725 (APR Unhold - Provider: Admin Adt)2056 (Given - Provider: Vanesa Vance, CRAISSA) 2134 (Given - Provider: Peter Dixon, RN) Continuous Medication Order 10/25/2023 10/26/2023 10/27/2023 lactated ringers infusion (CANCELED) 100 mL/hr, Intravenous, CONTINUOUS, Starting on 10/25/23 at 1400, Until Wed10/26/23 at 0826 1343 (New Bag - Provider: Alethea Barnes, RN) 0826 (Stopped - Provider: Rosemary Guzmán, RN) PRN Medication Order 10/25/2023 10/26/2023 10/27/2023 bisacodyL (Dulcolax) suppository 10 mg 10 mg, Rectal, DAILY PRN, Starting on Wed10/27/23 at 0830, Until Wed10/27/23 at 1717, Constipation, Routine 1224 (Given - Provider: Rosemary Guzmán, CARISSA) ketorolac (Toradol) (30 mg/mL) injection 15 mg 15 mg, Intravenous, EVERY 8 HOURS PRN, Starting on Wed10/25/23 at 1755, Until Wed10/27/23 at 1717, Pain, first line pain, Routine 0000 (Given - Provider: Vanesa Vance, CARISSA) melatonin tablet 3 mg 3 mg, Oral, NIGHTLY PRN, Starting on 10/23/23 at 202, Until Wed10/27/23 at 1717, Sleep, Sleep, Routine 1337 (APR Hold - Provider: Admin Adt - Reason: Transfer to a Procedural area)1725 (APR Unhold - Provider: Admin Adt)2057 (Given - Provider: Vanesa Vance, CARISSA) 2133 (Given - Provider: Peter Dixon, RN) ondansetron (pf) (Zofran) (2 mg/mL) injection 4 mg(Linked Group 1) 4 mg, Intravenous, EVERY 8 HOURS PRN, Starting on 10/23/23 at 2028, Until Wed10/27/23 at 1717, Nausea, 4 mg,Oral,EVERY 8 HOURS PRN, Nausea,Vomiting If multiple antiemetics are ordered, use ondansetron first. May repeat times one in 30 minutes if ineffective. 1337 (MAR Hold - Provider: Admin Adt - Reason: Transfer to a Procedural area)1726 (MAR Unhold - Provider: Admin Adt) 1411 (See Alternative - Provider: Rosemary Guzmán, CARISSA) ondansetron ODT (Zofran-ODT) disintegrating tablet 4 mg(Linked Group 1) 4 mg, Oral, EVERY 8 HOURS PRN, Starting on 10/23/23 at 2027, Until Wed10/27/23 at 1717, Nausea, If multiple antiemetics are ordered, use ondansetron first. PO Preferred. If patient unable to take PO, may give IV if ordered. May repeat times one in 45 minutes if ineffective. , Routine 1337 (MAR Hold - Provider: Admin Adt - Reason: Transfer to a Procedural area)172 (MAR Unhold - Provider: Admin Adt) 1411 (Given - Provider: Rosemary Guzmán, CARISSA) oxyCODONE (Roxicodone) tablet 5 mg 5 mg, Oral, EVERY 4 HOURS PRN, Starting on 10/25/23 at 1754, Until Wed10/27/23 at 1717, Pain, 2nd line pain, Routine 0445 (Given - Provider: Vanesa Vance RN) Linked Groups Order Group 1: ondansetron ODT (Zofran-ODT) disintegrating tablet 4 mgJump to med 4 mg, Oral, EVERY 8 HOURS PRN, Starting on 10/23/23 at 2027, Until Wed10/27/23 at 1717, Nausea, If multiple antiemetics are ordered, use ondansetron first. PO Preferred. If patient unable to take PO, may give IV if ordered. May repeat times one in 45 minutes if ineffective. , Routine Or ondansetron (pf) (Zofran) (2 mg/mL) injection 4 mgJump to med 4 mg, Intravenous, EVERY 8 HOURS PRN, Starting on 10/23/23 at 202, Until Wed10/27/23 at 1717, Nausea, 4 mg,Oral,EVERY 8 HOURS PRN, Nausea,Vomiting If multiple antiemetics are ordered, use ondansetron first. May repeat times one in 30 minutes if ineffective. documented in this encounter Care Teams Veterinary Medical Officer Relationship Specialty Start Date End Date Jez Vance MD [address] [place] [address] PCP - General 01/07/10 documented as of this encounter
--- OUTSIDE RECORDS SUMMARY | 2023-11-21 00:08 | XMS_ITS | Encounter Summary ---
[place] [address] Care Team Providers Care Film Examiner Name Role Phone Jez Vance MD Primary Care Provider [phone] Reason for Visit * Auth/Cert (Routine) Specialty Diagnoses / Procedures Referred By Deena yao Referred To Contact Diagnoses Cholestatic liver [place] [address] [facility] Referral ID Status Reason Start Date Expiration Date Visits Re quested Visits Authorized [id number] 1 1 Encounter Details Date Type Department Care Team (Late st Contact Info) Description 10/25/2023 1:55 PM EDT Ancillary Procedure [place] [phone] Social History Tobacco Use Types Packs/Day Years Used Date Smoking Tobacco: Never Smokeless Tobacco: Never Alcohol Use Standard Drinks/Week Comments Yes 1 (1 standard drink = 0.6 oz pur e alcohol) social drinker once a month [facility] Utilities Answer Date Recorded In the past [...] place to sleep or slept in a usp (including now)? No 08/06/2022 Housing Stability Vital Sign Answer Omari e Recorded In the last 12 months, was t here a time when you were not able to pay the mortgage or rent on time? No 10/25/2023 In the past 12 months, how m any times have you moved where you were living? 1 10/25/2023 At any time in the past 12 m [facility], were you homeless or living in a usp (including now)? No 10/25/2023 IPV Inpatient Questions [...] EDT TH Visit (TeleHealth) Radiation Oncology at [address] [phone] Adrienne Singh PA [facility] DR [place] [address] 11/30/2023 10:30 AM EDT Infusion Hematology Oncology at [address] [phone] documented as of this encounter Procedures Procedure Name Priority Date/Time Associated Diagnosis Comments XR ERCP Routine 10/25/2023 4:40 PM EDT documented in this encounter Results * XR ERCP (10/25/2023 4:40 PM EDT) Narrative [facility] - 10/25/2023 4:45 PM EDT See PACS for result report. Ros Gonzáles MD IM FILM LIBRARY ORD ERABLES Performing Organization Address City/State/[facility] Co de Phone Number [place], [place] documented in this encounter Visit Diagnoses Not on filedocumented in this encounter Care Teams Film Examiner Relationship Specialty Start Date End Date Jez Vance MD [address] [place], [place] [id number] PCP - General 01/07/10 documented as of this encounter
--- OUTSIDE RECORDS SUMMARY | 2023-11-21 00:08 | XMS_ITS | Encounter Summary ---
Author Organization [facility] Address [facility] [place] [address] Care Team Providers Care Sand And Gravel Plant Operator Name Role Phone Jez Vance MD Primary Care Provider [phone] Encounter Details Date Type Department Care Team (Late st Contact Info) Description 10/25/2023 Notes [place] [address] Patrizia Bassett Social History Tobacco Use Types Packs/Day Years Used Date Smoking Tobacco: Never Smokeless Tobacco: Never Alcohol Use Standard Drinks/Week Comments Yes 1 (1 standard drink = 0.6 oz pur e alcohol) social drinker once a month [facility] Utilities Answer Date Recorded In the past [...] to sleep or slept in a senior living (including now)? No 08/06/2022 Housing Stability Vital Sign Answer Omari e Recorded In the last 12 months, was t here a time when you were not able to pay the mortgage or rent on time? No 10/25/2023 In the past 12 months, how m any times have you moved where you were living? 1 10/25/2023 At any time in the past 12 m [facility], were you homeless or living in a senior living (including now)? No 10/25/2023 IPV Inpatient Questions [...] as of this encounter Progress Notes * Patrizia Bassett - 10/25/2023 2:27 PM EDT SOCCER: Study Of forCeps Cannulation during ERcp PI: Kamari Esquivel MD MS Velos # [id number] Objective of visit: Patrizia Rogel , research coordinator, and Dr. Reynoso met with Benny Zurita in [facility] to provide information regarding protocol [id number], answer questions or concerns about study plan, and evaluate their interest in study participation. Information Provided: Protocol was reviewed with Benny Zurita including, a description of the proposed care, treatment, services, medications, interventions, procedures, and follow-up including duration of subject's participation in study. Purpose of the study was also reviewed with the patient. Potential discomforts and risks were reviewed. The patient was informed regarding the uncertainties, both in terms of benefits as well as risks that are part of participation in clinical trials. Discussed confidentiality of patient's health information as specified in the protocol. Patient was advised that they may discontinue treatment at any time and that refusing to participate or discontinuing treatment will not compromise the patient's access to treatment options or care. Financial considerations in the context of clinical trials reviewed. The patient was given written information regarding the protocol during their visit on 10/25/23 andwas offered adequate time to review the information. The patient was given adequate time to ask questions and review concerns, all of which were answered to the patient's satisfaction by Dr. Reynoso The PI/Sub I was available to answer any medical related questions if applicable. Benny Zurita inquired if being in the study would put him a greater risk for adverse events, Dr. Reynoso and I reassured him that it did not. Assessment/Outcome: Benny Zurita verbalized understanding of the protocol and consents for treatment by using the teach-back method and being able to relay the purpose of the study and known possible risks/side effects of the procedure and treatment. Benny Zurita signed and dated consent version 1 on 10/25/23 . A copy of the signed consent form was given to them for their records. Original, signed informed consent document will be scanned into the patient's electronic medical record and stored in the subject's study binder. Written informed consent was obtained prior to any study related procedures being done. Plan: Benny Zurita agreed to participate in the above mentioned clinical trial. Informed consent form signed Patient will continue to be screened on study [id number] to determine if patient meets criteria during the procedure During ERCP for Benny Zurita , the patient did not meet intraprocedural criteria. The patient was consequently not enrolled in the SOCCER study. Patient will be informed that they are no longer inthe study following the procedure and will continue to be treated with standard of care. documented in this encounter Plan of Treatment Upcoming Encounters Date Type Department Care Team (Late st Contact Info) Description 11/30/2023 9:45 AM EDT TH Visit (TeleHealth) Radiation Oncology at [address] [phone] Adrienne Singh PA [facility] DR [place] [address] 11/30/2023 10:30 AM EDT Infusion Hematology Oncology at [address] [phone] documented as of this encounter Visit Diagnoses Not on filedocumented in this encounter Care Teams Sand And Gravel Plant Operator Relationship Specialty Start Date End Date Jez Vance MD [address] [place] [address] PCP - General 01/07/10 documented as of this encounter
--- OUTSIDE RECORDS SUMMARY | 2023-11-21 00:08 | XMS_ITS | Encounter Summary ---
Author Organization [facility] Address [facility] [place] [address] Care Team Providers Care License Clerk Name Role Phone Jez Vance MD Primary Care Provider [phone] Encounter Details Date Type Department Care Team (Late st Contact Info) Description 10/28/2023 Orders [place] [address] Andrew Reynoso MD [facility] [place] [address] Social History Tobacco Use Types Packs/Day Years Used Date Smoking Tobacco: Never Smokeless Tobacco: Never Alcohol Use Standard Drinks/Week Comments Yes 1 (1 standard drink = 0.6 oz pur e alcohol) social drinker once a month [facility] Utilities Answer Date Recorded In the past 12 months has [employer], gas, oil, or water [employer] threatened to shut off services in your [...] any time in the past 12 m [facility], were you homeless or living in a alf (including now)? No 10/25/2023 DH IPV Inpatient [...] EDT TH Visit (TeleHealth) Radiation Oncology at [address] [phone] Adrienne Singh PA [facility] HEMATOLOGY [place] [address] 11/30/2023 10:30 AM EDT Infusion Hematology Oncology at [address] [phone] documented as of this encounter Visit Diagnoses Not on filedocumented in this encounter Care Teams License Clerk Relationship Specialty Start Date End Date Jez Vance MD [address] [place], [place] [id number] PCP - General 01/07/10 documented as of this encounter
--- OUTSIDE RECORDS SUMMARY | 2023-11-21 00:08 | XMS_ITS | Encounter Summary ---
Author Organization [facility] [place] [address] Care Team Providers Care Sanitary Landfill Supervisor Name Role Phone Jez Vance MD Primary Care Provider [phone] Reason for Visit * Auth/Cert (Routine) Specialty Diagnoses / Procedures Referred By Deena yao Referred To Contact Diagnoses Cholestatic liver disease Rj Rizvi MD [facility] [place] [address] [facility] Referral ID Status Reason Start Date Expiration Date Visits Re quested Visits Authorized [id number] 1 1 Encounter Details Date Type Department Care Team (Late st Contact Info) Description 10/25/2023 2:39 PM EDT Anesthesia [place] [address] [facility] [place] [address] [address]isca Hernández MD [facility] [place] [address] Anesthesia Record Procedure Summary Procedure Name Responsible Anesthesiologist Anesthesia Start Time Anesthesia Stop Time UPPER EUS- ENDOSCOPIC ULTRASOUND (WRVU 3.47) (Trunk) Kenyatta Sarmiento MD 10/25/23 1439 10/25/23 1631 Events Date Time Event Comment 10/25/2023 1417 1439 AN Verify 1439 Start 1439 An Start Data 1446 An Induction 1448 An Intubation 1449 Anesthesia Ready 1554 Break/Relief In I assumed ca re for Break Relief before which we: 1. Identified the patient 2. Identified the responsible provider(s) 3. Reviewed the pertinent medical history 4. Discussed the surgical plan and course 5. Reviewed intra-op anesthesia management and issues during anesthesia 6. Set expectations for the relief (and/or post-procedure) period 7. Allowed opportunity for questions and acknowledgement of understanding Irma Hernandez CRNA 1614 Break/Relief Out 1627 Extubation/LMA Out 1629 an stop data 1631 Recovery or ICU Handoff Vivian ent care was transferred to the destination unit staff after review of the patient's medical history, current anesthetic/surgical status and plan, according to the Provider Handoff Checklist. 1631 Stop Meds Name Total propofoL 90 mg propofol INF 444.67 mg succinylcholine 100 mg PHENYLephrine 1,200 mcg ondansetron 4 mg lactated ringers 800 mL * Agents Name O2 Sevoflurane (et) * Blood No blood administrations on file. Lines, Drains, and Airways Type Details Placement Removal PIV 10/23/23; 1235; [id number]-liv-[id number] catheter system; 18 gauge; median cubital vein (antecubital fossa), left; Anatomical Landmarks; US Not Used; CARISSA Owen; distraction, appears comfortable, age-appropriate response; removed per policy/procedure, removed per physician; 10/27/23; 1403 10/23/23 1235 by Mirna Dean RN 10/27/23 1403 by Jersey Sotelo ETT Mask Ventilation: Ea sy (1); ETT Type: Cuffed, Oral; ETT Size: 7 mm; Mac Blade: 4; Notes: Asleep, Pre-O2, Cricoid Pressure, Stylette; Attempts: 1; Laryngoscopy Grade: 2; ETT Placement Verified By: Auscultation, Capnometry, Visual; Secured at Teeth: 23 cm; Inserted by: Nadia PAUL; Removal Date: 10/25/23; Removal Time: 162610/25/23 1448 by Pascale Zuniga CRNA 10/25/23 1627 by Pascale Zuniga CRNA documented in this encounter Social History Tobacco Use Types Packs/Day Years Used Date Smoking Tobacco: Never Smokeless Tobacco: Never Alcohol Use Standard Drinks/Week Comments Yes 1 (1 standard drink = 0.6 oz pur e alcohol) social drinker once a month [facility] Utilities Answer Date Recorded [...] time in the past 12 m [facility], were you homeless or living in a fpc (including now)? No 10/25/2023 IPV Inpatient Questions [...] OR Notes * Anesthesia Postprocedure Evaluation - Kenyatta Sarmiento MD - 10/27/2023 10:01 AM EDT Department of Anesthesiology Post-procedure Note Patient: Benny Zurita Procedure Summary Date: 10/25/23 Room / Location: [facility] ENDO 3 / [facility] ENDOSCOPY Anesthesia Start: 1439 Anesthesia Stop: 163 Procedures: UPPER EUS- ENDOSCOPIC ULTRASOUND (WRVU 3.47) (Trunk) ERCP (WRVU 5.85) (Trunk) EGD, W US GUIDED FINE NEEDLE ASPIRATION/BIOPSY (WRVU 4.16) ERCP W/SPHINCTEROTOMY/PAPILLOTOMY (WRVU 6.5) ERCP, W BALLOON DILATION OF BILIARY/PANCREATIC DUCT (WRVU 6.9) CHOLANGIOGRAM ERCP, W PLCMNT ENDOSCOPIC STENT BILIARY OR PANCREATIC DUCT (WRVU 8.48) Diagnosis: (pancreas head mass) Surgeons: Andrew Reynoso MD Responsible Provider: Kenyatta Sarmiento MD Anesthesia Type: general ASA Status: 3 All Anesthesia Providers: Anesthesiologist: Kenyatta Sarmiento MD ACOUSTICAL INSTALLER: Pascale Zuniga CRNA Vitals Value Taken Time BP 118/63 10/25/23 1710 Temp Pulse Resp 16 10/25/23 1710 SpO2 98 % 10/25/23 1712 Pain Level 2 10/25/23 1720 Vitals shown include unfiled device data. Patient Location: PACU/[facility] Level of Consciousness: Awake and Alert Pain Management: Satisfactory Analgesia PONV: None Cardiovascular Status: At Baseline and Hemodynamically Stable Respiratory Status: At Baseline and Room Air Postoperative Fluid Status: Intravascular EUvolemia Possible Anesthetic Complications: NONE apparent at time of evaluation Final Primary Anesthesia Type: General (The anesthetic type performed was the same as planned.) Comments: KENYATTA SARMIENTO MD * Anesthesia Preprocedure Evaluation - Kenyatta Sarmiento MD - 10/25/2023 12:21 PM EDT Pre-Anesthesia Evaluation for: Benny Zurita a 83 y.o. male. Procedure(s): UPPER EUS- ENDOSCOPIC ULTRASOUND (WRVU 3.47) ERCP (WRVU 5.85) Patient Active Problem List Diagnosis Date Noted ??? *Hypokalemia 10/24/2023 ??? Painless jaundice 10/23/2023 ??? Malignant neoplasm of prostate 07/31/2022 Past Medical History: Diagnosis Date ??? HTN (hypertension) ??? Hyperlipidemia ??? Prostate cancer Past Surgical History: Procedure Laterality Date ??? PROSTATE BIOPSY ??? ROTATOR CUFF REPAIR [...] Physical Exam: Preprocedure Vitals Current as of 10/25/23 1221 BP: 104/71 Pulse: 66 Resp: 18 SpO2: 98 Temp: 36.5 ??C (97.7 ??F) Height: 176.5 cm (5' 9.49) (10/24/23) Weight: 84.8 kg (186 lb 15.2 oz) (10/24/23) BMI: 27.22 IBW: 71.8 kg (158 lb 5.4 oz) Last edited 10/25/23 0820 by Airway Assessment: Mallampati: II TM distance: >3 FB Neck ROM: limited Cardiovascular Assessment: system normal Pulmonary Assessment: pulmonary exam normal Dental Assessment: - normal exam Misc Assessment: IV access: Peripheral line Last Filed Perioperative Cognitive Screening None Anesthesia Plan: ASA 3 general, with a(n) intravenous induction 83 y.o. male s/f EUS with biopsy and ERCP HPI: Pt with recent finding of pancreatic mass. Presented on this admission with weakness and nausea and found to have severe hypokalemia. 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 The patient verbalized understanding of the anesthesia plan including risks and alternatives and agreed to proceed. All questions were answered. Joslyn Sarmiento MD. Region - Other Informed Consent: Anesthetic plan and risks discussed with patient. Plan discussed with attending and ACOUSTICAL INSTALLER. Anesthesia Screening documented in this encounter Plan of Treatment Upcoming Encounters Date Type Department Care Team (Late st Contact Info) Description 11/30/2023 9:45 AM EDT TH Visit (TeleHealth) Radiation Oncology at [address] [phone] [facility] DR [place] [address] 11/30/2023 10:30 AM EDT Infusion Hematology Oncology at [address] [phone] documented as of this encounter Visit Diagnoses Not on filedocumented in this encounter Administered Medications Inactive Administered Medications - up to 3 most recent administrations Medication Order MAR Action Action Date Dose Rate Site lactated ringers infusion Intravenous, CONTINUOUS PRN, Starting on Wed10/25/23 at 1435, Until Wed10/25/23 at 1637, Anesthesia Intra-op New Bag 10/25/2023 2:35 PM EDT ondansetron (pf) (Zofran) (2 mg/mL) injection Intravenous, PRN, Starting on Wed10/25/23 at 1536, Until Wed10/25/23 at 1637, Anesthesia Intra-op, Routine Given 10/25/2023 3:36 PM EDT 4 mg PHENYLephrine in NS (PF) (NOE-SYNEPHRINE) 0.8 mg/10 mL (80 mcg/mL) multi-dose injection Syringe Intravenous, PRN, Starting on Wed10/25/23 at 1500, Until Wed10/25/23 at 1637, Anesthesia Intra-op, Routine Given 10/25/2023 4:07 PM EDT 80 mcg Given 10/25/2023 3:36 PM EDT 160 mcg Given 10/25/2023 3:32 PM EDT 160 mcg propofoL (Diprivan) (10 mg/mL) infusion Intravenous, CONTINUOUS PRN, Starting on Wed10/25/23 at 1453, Until Wed10/25/23 at 1637, Anesthesia Intra-op, Routine Rate/Dose Change 10/25/2023 3:13 PM EDT 100 mcg/kg/min 50.34 mL/hr New Bag 10/25/2023 2:53 PM EDT 150 mcg/kg/min 75.51 mL/ hr propofoL (Diprivan) 10 mg/mL bolus injection (Anesthesia) Intravenous, PRN, Starting on Wed10/25/23 at 1446, Until Wed10/25/23 at 1637, Anesthesia Intra-op Given 10/25/2023 2:46 PM EDT 90 mg succinylcholine (Anectine;Quelicin) (20 mg/mL) injection Intravenous, PRN, Starting on Wed10/25/23 at 1446, Until Wed10/25/23 at 1637, Anesthesia Intra-op, Routine Given 10/25/2023 2:46 PM EDT 100 mg documented in this encounter Care Teams Sanitary Landfill Supervisor Relationship Specialty Start Date End Date Jez Vance MD [address] [place] [address] PCP - General 01/07/10 documented as of this encounter
--- OUTSIDE RECORDS SUMMARY | 2023-11-21 00:08 | XMS_ITS | Encounter Summary ---
Author Organization [facility] [place] [address] Care Team Providers Care Head Of Geography Name Role Phone Jez Vance MD Primary Care Provider [phone] Reason for Referral * Surgical (Routine) - Closed Specialty Diagnoses / Procedures Referred By Contac t Referred To Contact General Surgery Diagnoses Malignant neoplasm of prostate Ros Gonzá[place] [address] [facility] [address] [place] [phone] Referral ID Status Reason Start Date Expiration Date V isits Requested Visits Authorized [id number] Closed Consult, Test & Treat 10/28/2023 10/27/2024 1 1 * Consultation (Routine) - Closed Specialty Diagnoses / Procedures Referred By Contac t Referred To Contact Gastroenterology Diagnoses Pancreatic mass [place] Gonzá[place] [address] [facility] [address] [place] [phone] Referral ID Status Reason Start Date Expiration Date V isits Requested Visits Authorized [id number] Closed Specialty Service Requested 10/27/2023 10/26/2024 1 1 * Consultation (Routine) - Closed Specialty Diagnoses / Procedures Referred By Deena yao Referred To Contact Gastroenterology Diagnoses Pancreatic mass Painless jaundice Malignant neoplasm of prostate [place] [address] [facility] [address] [place] [address] Referral ID Status Reason Start Date Expiration Date V isits Requested Visits Authorized [id number] Closed Consult, Test & Treat 10/26/2023 10/25/2024 1 1 * Consultation (Routine) - Closed Specialty Diagnoses / Procedures Referred By Deena yao Referred To Contact Hematology and Oncology Diagnoses Pancreatic mass Painless jaundice Malignant neoplasm of prostate [place] [address] [facility] Onc [address] [place] [address] Referral ID Status Reason Start Date Expiration Date V isits Requested Visits Authorized [id number] Closed Consult, Test & Treat 10/26/2023 10/25/2024 1 1 Reason for Visit * Reason Comments Jaundice * Auth/Cert (Routine) Specialty Diagnoses / Procedures Referred By Deena yao Referred To Contact Diagnoses Cholestatic liver [place] [address] [facility] Referral ID Status Reason Start Date Expiration Date Visits Re quested Visits Authorized [id number] 1 1 Encounter Details Date Type Department Care Team (Latest Contact Info) Description 10/23/2023 12:17 PM EDT - 10/27/2023 3:16 PM EDT Hospital Encounter Hematology/Oncology Unit Level 1 [place] [address] Leia Henley MD [facility] [place] [address] Anjum Biggs [place] [facility] [place] [address] [place] [address] [place] [address] Jaundice; Pancreatic mass; Hypokalemia; Painless jaundice; Malignant neoplasm of prostate Discharge Disposition: Home Social History Tobacco Use Types Packs/Day Years Used Date Smoking Tobacco: Never Smokeless Tobacco: Never Alcohol Use Standard Drinks/Week Comments Yes 1 (1 standard drink = 0.6 oz pur e alcohol) social drinker once a month [facility] Utilities Answer Date Recorded In the past 12 months has e milabent, gas, oil, or water [employer] threatened to shut off services in your [...] place to sleep or slept in a detention (including now)? No 08/06/2022 Housing Stability Vital [...] were you homeless or living in a detention (including now)? No 10/25/2023 IPV Inpatient Questions [...] Sign Reading Time Taken Comments Blood Pressure 139/60 10/27/2023 1:22 PM EDT Pulse 49 10/25/2023 5:34 PM EDT Temperature 36.7 ??C (98.1 ??F) 10/27/2023 1:22 PM ED T Respiratory Rate 18 10/27/2023 1:22 PM EDT Oxygen Saturation 96% 10/27/2023 1:22 PM EDT Inhaled Oxygen Concentration - - [...] so he presented to the ED at [facility]. In the ED, found to have hypokalemia (2.9), mild normocytic anemia (13.1), normal renal function, markedly elevated bilirubin (8.6), elevated LFT's (AST 258 / ALT 577). GI consulted by the ED and medicine paged for admission. Patient lives with his , split between here and [place]. 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 Rare EtOH. Nonsmoker. No [...] oncology team had reached out to the [facility] ([facility]) New Patient schedulers to keep an eye [...] Important Studies and Lab Data: Recent Labs 10/27/2333410/26/2339910/25/23 0353 WBC 9.79* 7.51 4.52 HGB 11.9* 12.2* 12.2* HCT 34.1* 35.2* 34.1* PLATELET 196 210 193 Recent Labs 10/27/2333410/26/23 0400 10/25/23 0353 10/24/23 0411 10/23/23 1627 [...] in this interval not displayed. Recent Labs 10/27/2333410/26/230 10/25/23 0353 BILITOT 2.8* 3.6* 8.5* AST [...] 10/23/2023 1:10 PM) Result Value WORKSTATION ID [id number] Impression 1. Hypodense pancreatic head mass concerning [...] who have questions please contact the health home health care social worker that requested your imaging first. Chest w Contrast (Exam End: 10/24/2023 1:41 PM) Result Value WORKSTATION ID [id number] Impression No metastatic disease in the chest. Thank you for letting us participate in the care of this patient. If you are a health care provider and have any questions regarding this report, please contact the number below. For patients who have questions please contact the health home health care social worker that requested your imaging first. Electronically signed by: Mariam Johnson MD, [facility] ([phone]), at 10/24/2023 5:21 PM Discharge Conditions/Prognosis: Stable; [...] oncology team had reached out to the [facility] ([facility]) New Patient schedulers to keep an eye [...] Center 11/02/2023 10:30 AM Adrienne Singh PA [facility] 11/30/2023 9:45 AM Adrienne Singh PA [facility] 11/30/2023 10:30 AM [facility], ROOM [facility] Your Inpatient Doctor: Ros Gonzáles MD Your Primary Care Provider: Jez Vance MD [phone] For questions regarding this document or issues relating to this hospitalization on the Medical Service, please contact your inpatient physician through the [facility] Construction Mgr . Issues afterhours and on weekends will [...] the day after the procedure, use an mkhn-wpt-ysixbsh spray to numb your throat. Sucking on [...] occurs, please contact your Doctor. Please call [phone] before 8pm Mon-Fri with problems, questions or concerns. If you call after 8pm or on weekends, call the Hospital at [phone] and ask to speak to the Chair Springer educational specialist and the combiner operator will contact that person for you. When should you call for help? Call [phone] anytime you think you may need emergency [...] problems, like Where can you learn more? [facility] View your After Visit Summary and more online at [email or web address] If you would like to provide feedback about your hospital experience, please call the Office of Patient and Family Relations at . If you have received this After Visit Summary in error, please immediately return it in person to the department, or notify the [facility] Privacy Office by calling toll free at between the hours of 8AM and 5PM to arrange for our retrieval of the documents at no cost to you. Content Version: 12.2 ?? 3268-1596 [employer]. Care instructions adapted under license by [facility]. If you have questions about a medical condition or this instruction, always ask your healthcare professional. [employer] disclaims any warranty or liability for your [...] the day after the procedure, use an kfej-xln-zkiljdk spray to numb your throat. Sucking on [...] occurs, please contact your Doctor. Please call [phone] before 8pm Mon-Fri with problems, questions or concerns. If you call after 8pm or on weekends, call the Hospital at [phone] and ask to speak to the Chair Springer educational specialist and the combiner operator will contact that person for you. When should you call for help? Call [phone] anytime you think you may need emergency [...] any problems. Where can you learn more? [facility] View your After Visit Summary and more online at [email or web address] If you would like to provide feedback about your hospital experience, please call the Office of Patient and Family Relations at . If you have received this After Visit Summary in error, please immediately return it in person to the department, or notify the [facility] Privacy Office by calling toll free at between the hours of 8AM and 5PM to arrange for our retrieval of the documents at no cost to you. Content Version: 12.2 ?? 2702-1846 [employer]. Care instructions adapted under license by [facility]. If you have questions about a medical condition or this instruction, always ask your healthcare professional. [employer] disclaims any warranty or liability for your [...] the day after the procedure, use an gfma-ngf-stjsqjw spray to numb your throat. Sucking on [...] occurs, please contact your Doctor. Please call [phone] before 8pm Mon-Fri with problems, questions or concerns. If you call after 8pm or on weekends, call the Hospital at [phone] and ask to speak to the Chair Springer educational specialist and the combiner operator will contact that person for you. When should you call for help? Call [phone] anytime you think you may need emergency [...] any problems. Where can you learn more? [facility] View your After Visit Summary and more online at [email or web address] If you would like to provide feedback about your hospital experience, please call the Office of Patient and Family Relations at . If you have received this After Visit Summary in error, please immediately return it in person to the department, or notify the [facility] Privacy Office by calling toll free at between the hours of 8AM and 5PM to arrange for our retrieval of the documents at no cost to you. Content Version: 12.2 ?? 8706-8809 [employer]. Care instructions adapted under license by [facility]. If you have questions about a medical condition or this instruction, always ask your healthcare professional. [employer] disclaims any warranty or liability for your use of this information. Future Appointments and Orders Future Appointments and Orders Future Appointments Provider Department Dept Phone 11/02/2023 10:30 AM Adrienne Singh PA Radiation Oncology at [facility] Arrive at: Home [phone] 11/30/2023 9:45 AM Adrienne Singh PA Radiation Oncology at [facility] Arrive at: Home [phone] 11/30/2023 10:30 AM [facility], ROOM Hematology Oncology at [facility] Arrive at: [facility] door at end of hallway [phone] Future Orders Complete By Expires Referral to Gastroenterology [REF25 Custom] As directed Process Instructions: If requesting a colonoscopy please use [id number] AMB REFERRAL TO COLONOSCOPY PROCEDURE. This referral request is for evaluation and treatment of gastrointestinal health concerns. Scheduling Instructions: Questions: My question or request is: Status post ERCP and EUS for pancreatic cancer Referral to Gastroenterology [REF25 Custom] As directed Process Instructions: If requesting a colonoscopy please use [id number] AMB REFERRAL TO COLONOSCOPY PROCEDURE. This referral [...] cancer Provider Contact Information: Jez Vance MD [address] [facility] [address] Discharge References/Attachments: Discharge References/Attachments None documented in [...] the day after the procedure, use an mulq-egx-xnesire spray to numb your throat. Sucking on [...] occurs, please contact your Doctor. Please call [phone] before 8pm Mon-Fri with problems, questions or concerns. If you call after 8pm or on weekends, call the Hospital at [phone] and ask to speak to the Chair Springer educational specialist and the combiner operator will contact that person for you. When should you call for help? Call [phone] anytime you think you may need emergency [...] problems, like Where can you learn more? [facility] View your After Visit Summary and more online at [email or web address] If you would like to provide feedback about your hospital experience, please call the Office of Patient and Family Relations at . If you have received this After Visit Summary in error, please immediately return it in person to the department, or notify the - Privacy Office by calling toll free at between the hours of 8AM and 5PM to arrange for our retrieval of the documents at no cost to you. Content Version: 12.2 ?? 6994-7110 [employer]. Care instructions adapted under license by [facility]. If you have questions about a medical condition or this instruction, always ask your healthcare professional. [employer] disclaims any warranty or liability for your [...] the day after the procedure, use an hchv-zsl-cjbguks spray to numb your throat. Sucking on [...] occurs, please contact your Doctor. Please call [phone] before 8pm Mon-Fri with problems, questions or concerns. If you call after 8pm or on weekends, call the Hospital at [phone] and ask to speak to the Chair Springer educational specialist and the combiner operator will contact that person for you. When should you call for help? Call [phone] anytime you think you may need emergency [...] any problems. Where can you learn more? [facility] View your After Visit Summary and more online at [email or web address] If you would like to provide feedback about your hospital experience, please call the Office of Patient and Family Relations at . If you have received this After Visit Summary in error, please immediately return it in person to the department, or notify the [facility] Privacy Office by calling toll free at between the hours of 8AM and 5PM to arrange for our retrieval of the documents at no cost to you. Content Version: 12.2 ?? 6242-6133 [employer]. Care instructions adapted under license by [facility]. If you have questions about a medical condition or this instruction, always ask your healthcare professional. [employer] disclaims any warranty or liability for your [...] the day after the procedure, use an xwvd-vcp-xlluxot spray to numb your throat. Sucking on [...] occurs, please contact your Doctor. Please call [phone] before 8pm Mon-Fri with problems, questions or concerns. If you call after 8pm or on weekends, call the Hospital at [phone] and ask to speak to the Chair Springer educational specialist and the combiner operator will contact that person for you. [...] any problems. Where can you learn more? [facility] View your After Visit Summary and more online at [email or web address] If you would like to provide feedback about your hospital experience, please call the Office of Patient and Family Relations at . If you have received this After Visit Summary in error, please immediately return it in person to the department, or notify the [facility] Privacy Office by calling toll free at between the hours of 8AM and 5PM to arrange for our retrieval of the documents at no cost to you. Content Version: 12.2 ?? 2331-7491 [employer]. Care instructions adapted under license by [facility]. If you have questions about a medical condition or this instruction, always ask your healthcare professional. [employer] disclaims any warranty or liability for your [...] oncology team had reached out to the [facility] ([facility]) New Patient schedulers to keep an eye [...] Center 11/02/2023 10:30 AM Adrienne Singh PA [facility] 11/30/2023 9:45 AM Adrienne Singh PA [facility] 11/30/2023 10:30 AM [facility], ROOM [facility] Your Inpatient Doctor: Ros Gonzáles MD Your Primary Care Provider: Jez Vance MD [phone] For questions regarding this document or issues relating to this hospitalization on the Medical Service, please contact your inpatient physician through the [facility] Construction Mgr . Issues afterhours and on weekends will [...] out of the unit by a unit SCREEN VENT BINDER. Pt is discharged to his home and [...] spent >30 minutes (Day of Discharge Code 47360) involved in the final examination of the [...] General Information Benny Zurita 1940 Medicare Number: [id number] Transport Date: 10/26/2023 (PCS is valid for round trips on this date and for all repetitive trips in the 60-day range as noted below.) Origin: [address] Destination: [facility] Is the patient's stay covered under Medicare [...] wheelchair van (i.e. seated during transport, without biomedical engineering professor or monitoring?): No 4) In addition to [...] the Centers of Medicare and Medicaid Services ([facility]) to support the determination of medical necessity [...] -- 55 16 143/51 96 % -- 10/25/23 1632 36.4 ??C (97.5 ??F) 69 bpm -- 18 (!) 116/37 (!) 89 % 6 L/min Simple mask 10/25/23 1635 -- 52 bpm -- 18 104/53 100 % -- 10/25/23 1640 -- 51 bpm -- 18 [...] (!) 49 16 143/57 96 % -- 10/25/23 1935 36.8 ??C (98.2 ??F) 60 [...] minimumof two midnights or is on the [facility] inpatient only procedure list (status C) due to: severe hypokalemia and pancreatic mass requiring EUS/ERCP Team Pager(MD Coverage 07/09): #[phone] PCP: Jez Vance MD [phone] Ros Gonzáles MD 10/26/2023 * Vanesa Vance [...] Resp: [16-18] SpO2 SpO2: [89 %-100 %] IO 10/23 0701 - 10/24 0700 In: 1620 [P.O.:1620] Out: 1150 [Urine:1150] Wt [...] personally reviewed in eDH CBC: Recent Labs 10/25/23 0353 10/24/2341010/23/23 1232 WBC 4.52 5.21 4.60 HGB 12.2* 12.3* 13.1* PLATELET 193 204 233 MCV 90.7 89.7 90.5 RDWCV 13.9* 13.4 13.2 CHEM: Recent Labs 10/25/23 0353 10/24/23 1617 10/24/2341010/23/23 1627 10/23/23 1232 CREATININE 0.70* 0.68* 0.80 0.85 0.79* BUN 20 17 17 16 17 NA 131* 131* 133* 134* 130* K 3.7 3.5 3.9 2.9* 2.9* CL 97* 94* 99 94* 92* CO2 22 26 22 26 24 MAGNESIUM -- -- -- 0.76 -- CALCIUM 8.8 9.0 8.8 9.1 9.1 HEPATIC: Recent Labs 10/25/23 03510/24/2341010/23/23 1232 BILITOT 8.5* 7.8* 8.6* ALKPHOS 366* [...] who have questions please contact the health home health care social worker that requested your imaging first. Electronically signed by: Mariam Johnson MD, [facility] ([phone]), at 10/24/2023 5:[address] Abdomen & [...] who have questions please contact the health home health care social worker that requested your imaging first. SCOPY: Reports and images personally reviewed in eDH [...] Gonzáles MD - 10/25/2023 6:[address] [facility] Medicine Attending Daily Progress Note Admit [...] SpO2 O2 Flow Rate (L/min) O2 Device 10/24/23 1949 36.6 ??C (97.9 ??F) (!) 46 bpm -- 18 117/56 98 % -- 10/25/23 0820 36.5 ??C (97.7 ??F) 63 bpm 66 18 104/71 98 % -- 10/25/23 1323 -- -- -- -- -- -- -- 10/25/23 1337 36.7 ??C (98.1 ??F) -- 55 16 143/51 96 % -- 10/25/23 1632 36.4 ??C (97.5 ??F) 69 bpm -- 18 (!) 116/37 (!) 89 % 6 L/min Simple mask 10/25/23 1635 -- 52 bpm -- 18 104/53 100 % -- 10/25/23 1640 -- 51 bpm -- 18 [...] QRS widening ( R in aVL , [place] product ) Possible Lateral infarct , age undetermined Abnormal ECG No previous ECGs available Confirmed by Devon Leo MD (Angel) on 10/24/2023 2:23:18 PM QTCCALC [id number] IMAGING: [...] minimumof two midnights or is on the [facility] inpatient only procedure list (status C) due to: severe hypokalemia and pancreatic mass requiring EUS/ERCP Team Pager( Coverage 07/09): #[phone] PCP: Jez Vance MD [phone] Ros Gonzáles MD 10/25/2023 * Alethea Barnes [...] encounter: 84.8 kg (186 lb 15.2 oz). [place] Body Weight (IBW) (kg): 74.09 Usual Body [...] pt reported 14-23# loss and poor po FAMILY PRACTICE PHYSICIAN. Assistant Operator met with Benny at bedside (pt's on phone during visit). Benny says that he has had a smaller appetiteand is eating ~50% of his normal sized meals (unable to provide daily intake). He still eats 3 meals per day and some snacks. Assistant Operator encouraged 5-6 small meals per day to [...] Nutrition Focused Physical Exam: Performed (10/25/23 by SEGUN) . Subcutaneous Fat Loss Orbital region: Mild Upper arm region (triceps/biceps): None present Thoracic and Lumbar regions (ribs, lower back, and maxillary line): None present Lean Muscle Loss Jewish region (temporalis muscle): None present Clavicle bone [...] to continue to follow up while inpatient ThanksDebbie, MS, RDN, LD Clinical Nutrition * Vanesa [...] -- -- 70 21 -- -- -- 10/23/23 1930 -- -- 67 19 -- 96 % [...] minimumof two midnights or is on the [facility] inpatient only procedure list (status C) due to: severe hypokalemia Team Pager(MD Coverage 07/09): #[phone] PCP: Jez Vance MD [phone] Rj Rizvi MD 10/24/2023 * Vanesa Vance [...] Note CC/ID: 83 y.o. Male presents to [facility] with fatigue and nausea Subjective [...] so he presented to the ED at [facility]. In the ED, found to [...] Immunizations given as needed. Rj Rizvi MD [facility] Medicine Pager [phone] documented in this encounter ED Notes * [...] abdominal pain or nausea at this time. MD notified. * Mirna Dean RN - 10/23/2023 4:00 PM EDT Pt up to ambulate to the bathroom with a steady gait. Denies any lightheadedness or dizziness. Pt ambulated back to room independently and reconnected to [facility]. Denies any further needs or concerns [...] 0 - 60 unit/L Type and screen ([facility]/ANDRE/FREDY) Result Value Ref Range ABORH Type O POSITIVE PATIENT HISTORY Not Found Expires at 2359 on: 10-26-2023 ANTIBODY SCREEN AUTOMATED Negative T&S only valid at [facility] LAB CBC (with Diff) Result [...] who have questions please contact the health home health care social worker that requested your imaging first. Procedures Assessment and Plan: 83 y.o. male [...] oncoming ED team. Hudson Walker MD Resident 10/23/23 8157 Hudson Walker MD Resident 10/23/237 Associated attestation - Leia Henley MD - [...] 12:27 PM EDT ED Attending Note HPI: Benny Zurita is a 83 [...] Type: *No Product type* / Secondary Insurance: [facility] Prescription Coverage: Yes This plan was [...] Type: *No Product type* / Secondary Insurance: [facility] Plan for discharge is: Home w/o [...] (Interventions Implemented as Appropriate) Flowsheets Taken 10/25/2023 1913 Plan of Care Reviewed With: patient Progress: [...] Intervention: Provide Person-Centered Care Flowsheets (Taken 10/25/2023 0825 by Kelly Nicholson RN) Trust Relationship/Rapport: care [...] ( spouse) would be surrogatedecision maker per [place] surrogate decision making law. (Only good for 180 days) Any patient receiving care in [place] must abide by [place] law. The hierarchy for surrogate decision making [...] (i) The agent with financial power of employment attorney or a conservator appointed in accordance [...] were you homeless or living in a detention (including now)?: No In the past 12 months has the milabent, gas, oil, or water [employer] threatened to shut off services in your [...] needed for daily living?: No Current DME: cane - straight, walker - standard Home Address confirmed as: [address] [place] [address] Social & Family Supports: All names listed below confirmed with patient as current and correct Extended Emergency Contact Information Primary Emergency Contact: Angela Zurita Address: [address] [place] [address] [facility] Relation: Spouse Secondary Emergency Contact: Tiera Washington Address: [address] [place] [address] [facility] Relation: Child Current Care Provided by: [...] Type: *No Product type* / Secondary Insurance: [facility] ONLY if patient has Medicare A&B - Does this patient have secondary insurance?: Yes ; Prescription Coverage: Yes Preferred Pharmacy: [facility] [address] [place] [id number] [place] Status: Patient is a : No Primary Care Provider confirmed: Jez Vance MD [phone] Patient/Caregiver Goals of Treatment: return to home [...] Intervention: Provide Person-Centered Care Flowsheets (Taken 10/24/2023 4330) Trust Relationship/Rapport: care explained choices provided Problem: [...] for Medication Reconciliation 10/23/23 9:26 PM Benny Zruita 1940 No Known Allergies Person Interviewed: patient [...] who have questions please contact the health home health care social worker that requested your imaging first. SCOPY: Reports and images personally reviewed in eDH [...] EDT TH Visit (TeleHealth) Radiation Oncology at [address] [phone] Adrienne Singh PA [facility] [place] [address] 11/30/2023 10:30 AM EDT Infusion Hematology Oncology at [address] [phone] Scheduled Referrals Name Type Priority Associated Diagnoses [...] EDT Ercp Stent Placement Biliary Or Pancreatic Duct(23730) 10/25/2023 2:37 PM EDT pancreas head mass CHOLANGIOGRAM 10/25/2023 2:37 PM EDT pancreas head mass Ercp Balloon Dilatation Biliary/Pancreatic Duct Or Ampulla Ea Duct (53680) 10/25/2023 2:37 PM EDT pancreas head mass Ercp, Sphincterotomy (15383) 10/25/2023 2:37 PM EDT pancreas head mass [facility] W/Us Fn Bx ([id number]) 10/25/2023 2:37 PM EDT pancreas head mass Ercp, Diagnostic ([id number]) 10/25/2023 2:37 PM EDT pancreas head mass Endoscopic Us Exam, Esoph ([id number]) 10/25/2023 2:37 PM EDT pancreas head mass [...] 10/23/2023 12:32 PM EDT TYPE AND SCREEN (MC/CGP/FREDY) STAT 10/23/2023 12:32 PM EDT LIPASE STAT 10/23/2023 12:32 PM EDT COMPREHENSIVE METABOLIC PANEL STAT 10/23/2023 12:32 PM EDT documented in this encounter Results * (ABNORMAL) Comprehensive metabolic panel (10/27/2023 3:35 AM EDT) Glucose 157 65 - 199 mg/dL 10/27/2023 5:56 AM [facility] Comment:Glucose Concentratio n >=200 mg/dL plus symptoms is consistent with Diabetes Mellitus. Blood Urea Nitrogen 12 10 - 20 mg/dL 10/27/2023 5:56 AM [facility] Creatinine 0.53(L) 0.80 - 1.50 mg/dL 10/27/2023 5:56 AM [facility] Sodium 131(L) 135 - 145 mMol/L 10/27/2023 5:56 AM [facility] Potassium 3.5 3.5 - 5.0 mMol/L 10/27/2023 5:56 AM [facility] Chloride 95(L) 98 - 107 mMol/L 10/27/2023 5:56 AM [facility] Carbon Dioxide 22 22 - 31 mMol/L 10/27/2023 5:56 AM [facility] Anion Gap 14 5 - 15 mMol/L 10/27/2023 5:56 AM [facility] Calcium 8.4(L) 8.5 - 10.5 mg/dL 10/27/2023 5:56 AM [facility] Protein, Total 6.2 6.1 - 8.0 g/dL 10/27/2023 5:56 AM [facility] Albumin 3.5 3.2 - 5.2 g/dL 10/27/2023 5:56 AM [facility] Aspartate Aminotransferase 73(H) <=39 unit/L 10/27/2023 5:56 AM [facility] Alanine Aminotransferase 291(H) 0 - 55 unit/L 10/27/2023 5:56 AM [facility] Alkaline Phosphatase 329(H) 40 - 130 unit/L 10/27/2023 5:56 AM [facility] Bilirubin, Total 2.8(H) <=1.3 mg/dL 10/27/2023 5:56 AM EDT [facility] Est Glomerular Filtration Rate - Male 101 mL/min/1. 73 m?? 10/27/2023 5:56 AM EDT [facility] Comment: This patient's estimated GFR [...] Gonzáles MD CHEMISTRY ORDERABLES Performing Organization Address City/[facility]/ZIP Co de Phone Number [facility] [place] [address] * (ABNORMAL) Magnesium (10/27/2023 3:35 AM EDT) Magnesium 0.63(L) 0.69 - 1.07 mMol/L 10/27/2023 5:56 AM EDT [facility] Blood VENOUS BLOOD SPECIMEN / Unknown IP Care Team Draw / Unknown 10/27/2023 3:35 AM EDT 10/27/2023 3:47 AM EDT Ros Gonzáles MD CHEMISTRY ORDERABLES [facility] [place] [address] * (ABNORMAL) Phosphorus (10/27/2023 3:35 AM EDT) Phosphorus 2.4(L) 2.5 - 4.5 mg/dL 10/27/2023 5:56 AM EDT [facility] Blood VENOUS BLOOD SPECIMEN / Unknown IP Care Team Draw / Unknown 10/27/2023 3:35 AM EDT 10/27/2023 3:47 AM EDT Ros Gonzáles MD CHEMISTRY ORDERABLES [facility] [place] [address] * (ABNORMAL) CBC (with Diff) (10/27/2023 3:35 AM EDT) White Blood Cell 9.79(H) 4.00 - 9.50 x10(3)/mc L 10/27/2023 3:54 AM EDT [facility] Red Blood Cell 3.65(L) 4.58 - 5.54 x10(6)/mc L 10/27/2023 3:54 AM EDT [facility] Hemoglobin 11.9(L) 13.7 - 16.5 g/dL 10/27/2023 3:54 AM T [facility] Hematocrit 34.1(L) 40.5 - 48.5 % 10/27/2023 3:54 AM [facility] Mean Cell Volume 93.4(H) 82.9 - 93.1 fL 10/27/2023 3:54 AM [facility] Mean Cell Hemoglobin 32.6(H) 27.5 - 32.1 pg 10/27/2023 3:54 AM EDT [facility] Mean Cell Hemoglobin Concentration 34.9 32.0 - 35.7 g/dL 10/27/2023 3:54 AM [facility] Platelet 196 145 - 357 x10(3)/mc L 10/27/2023 3:54 [facility] Mean Platelet Volume 12.0 7.6 - 12.9 fL 10/27/2023 3:54 AM [facility] RDW Standard Deviation 47.1(H) 36.0 - 45.0 fL 10/27/2023 3:54 AM [facility] RDW coefficient of variation 13.9(H) 11.4 - 13.8 % 10/27/2023 3:54 AM [facility] NRBC% auto 0.0 % 10/27/2023 3:54 AM [facility] NRBC Absolute 0.00 0.00 - 0.00 x10(3)/mc L 10/27/2023 3:54 AM [facility] Neutrophil % 80.7 % 10/27/2023 3:54 AM [facility] Neutrophil Absolute (ANC) - Automated 7.90(H) 1.70 - 6.10 x10(3)/mc L 10/27/2023 3:54 AM [facility] Lymph % 8.3 % 10/27/2023 3:54 AM [facility] Lymph Absolute 0.81(L) 0.90 - 3.20 x10(3)/mc L 10/27/2023 3:54 AM [facility] Monocyte % 9.3 % 10/27/2023 3:54 AM [facility] Monocyte Absolute 0.91(H) 0.30 - 0.90 x10(3)/mc L 10/27/2023 3:54 AM [facility] Eos % 0.8 % 10/27/2023 3:54 AM [facility] Eos Absolute 0.08 0.00 - 0.40 x10(3)/mc L 10/27/2023 3:54 AM [facility] Basophil % 0.3 % 10/27/2023 3:54 AM [facility] Baso Absolute 0.03 0.00 - 0.10 x10(3)/mc L 10/27/2023 3:54 AM [facility] Immature Gran % 0.6 % 3:54 AM [facility] Immature Gran Absolute 0.06(H) 0.00 - 0.04 x10(3)/mc L 10/27/2023 3:54 AM EDT [facility] Blood VENOUS BLOOD SPECIMEN / Unknown IP Care Team Draw / Unknown 10/27/2023 3:35 AM EDT 10/27/2023 3:47 AM EDT Ros Gonzáles MD HEMATOLOGY ORDERABLE S [facility] [address] [place] [address] * (ABNORMAL) Comprehensive metabolic panel (10/26/2023 4:00 AM EDT) Glucose 136 65 - 199 mg/dL 10/26/2023 4:45 AM EDT [facility] Comment:Glucose Concentratio n >=200 mg/dL plus symptoms is consistent with Diabetes Mellitus. Blood Urea Nitrogen 19 10 - 20 mg/dL 10/26/2023 4:45 AM EDT [facility] Creatinine 0.69(L) 0.80 - 1.50 mg/dL 10/26/2023 4:45 AM EDT [facility] Sodium 131(L) 135 - 145 mMol/L 10/26/2023 4:45 AM EDT [facility] Potassium 3.6 3.5 - 5.0 mMol/L 10/26/2023 4:45 AM EDT [facility] Chloride 94(L) 98 - 107 mMol/L 10/26/2023 4:45 [facility] Carbon Dioxide 24 22 - 31 mMol/L 10/26/2023 4:45 AM [facility] Anion Gap 13 5 - 15 mMol/L 10/26/2023 4:45 AM [facility] Calcium 8.7 8.5 - 10.5 mg/dL 10/26/2023 4:45 AM [facility] Protein, Total 6.2 6.1 - 8.0 g/dL 10/26/2023 4:45 AM EDT [facility] Albumin 3.4 3.2 - 5.2 g/dL 10/26/2023 4:45 AM [facility] Aspartate Aminotransferase 132(H) <=39 unit/L 10/26/2023 4:45 AM [facility] Alanine Aminotransferase 400(H) 0 - 55 unit/L 10/26/2023 4:45 AM [facility] Alkaline Phosphatase 384(H) 40 - 130 unit/L 10/26/2023 4:45 AM [facility] Bilirubin, Total 3.6(H) <=1.3 mg/dL 10/26/2023 4:45 AM [facility] Est Glomerular Filtration Rate - Male 93 mL/min/1. 73 m?? 10/26/2023 4:45 AM [facility] Comment: This patient's estimated [...] AM EDT Ros Gonzáles MD CHEMISTRY ORDERABLES [facility] [place] [address] * (ABNORMAL) Magnesium (10/26/2023 4:00 AM EDT) Magnesium 0.65(L) 0.69 - 1.07 mMol/L 10/26/2023 4:45 AM EDT [facility] Blood VENOUS BLOOD SPECIMEN / Unknown IP Care Team Draw / Unknown 10/26/2023 4:00 AM EDT 10/26/2023 4:12 AM EDT Ros Gonzáles MD CHEMISTRY ORDERABLES [facility] [place] [address] * Phosphorus (10/26/2023 4:00 AM EDT) Pathologist [facility] Phosphorus 3.1 2.5 - 4.5 mg/dL 10/26/2023 4:45 AM EDT [facility] Blood VENOUS BLOOD SPECIMEN / Unknown IP Care Team Draw / Unknown 10/26/2023 4:00 AM EDT 10/26/2023 4:12 AM EDT Ros Gonzáles MD CHEMISTRY ORDERABLES [facility] [place] [address] * (ABNORMAL) CBC (with Diff) (10/26/2023 4:00 AM EDT) [facility] White Blood Cell 7.51 4.00 - 9.50 x10(3)/mc L 10/26/2023 4:47 AM EDT [facility] Red Blood Cell 3.79(L) 4.58 - 5.54 x10(6)/mc L 10/26/2023 4:47 AM EDT [facility] Hemoglobin 12.2(L) 13.7 - 16.5 g/dL 10/26/2023 4:47 AM EDT [facility] Hematocrit 35.2(L) 40.5 - 48.5 % 10/26/2023 4:47 AM EDT [facility] Mean Cell Volume 92.9 82.9 - 93.1 fL 10/26/2023 4:47 AM [facility] Mean Cell Hemoglobin 32.2(H) 27.5 - 32.1 pg 10/26/2023 4:47 AM [facility] Mean Cell Hemoglobin Concentration 34.7 32.0 - 35.7 g/dL 10/26/2023 4:47 AM [facility] Platelet 210 145 - 357 x10(3)/mc L 10/26/2023 4:47 AM [facility] Mean Platelet Volume 11.7 7.6 - 12.9 fL 10/26/2023 4:47 AM [facility] RDW Standard Deviation 48.8(H) 36.0 - 45.0 fL 10/26/2023 4:47 AM [facility] RDW coefficient of variation 14.3(H) 11.4 - 13.8 % 10/26/2023 4:47 AM [facility] NRBC% auto 0.0 % 10/26/2023 4:47 AM [facility] NRBC Absolute 0.00 0.00 - 0.00 x10(3)/mc L 10/26/2023 4:47 AM [facility] Neutrophil % 80.3 % 10/26/2023 4:47 AM [facility] Neutrophil Absolute (ANC) - Automated 6.04 1.70 - 6.10 x10(3)/mc L 10/26/2023 4:47 AM [facility] Lymph % 11.1 % 10/26/2023 4:47 AM [facility] Lymph Absolute 0.83(L) 0.90 - 3.20 x10(3)/mc L 10/26/2023 4:47 AM [facility] Monocyte % 6.8 % 10/26/2023 4:47 AM [facility] Monocyte Absolute 0.51 0.30 - 0.90 x10(3)/mc L 10/26/2023 4:47 AM [facility] Eos % 1.1 % 10/26/2023 4:47 AM EDT [facility] Eos Absolute 0.08 0.00 - 0.40 x10(3)/mc L 10/26/2023 4:47 AM EDT [facility] Basophil % 0.3 % 10/26/2023 4:47 AM EDT [facility] Baso Absolute 0.02 0.00 - 0.10 x10(3)/mc L 10/26/2023 4:47 AM EDT [facility] Immature Gran % 0.4 % 4:47 AM EDT [facility] Immature Gran Absolute 0.03 0.00 - 0.04 x10(3)/mc L 10/26/2023 4:47 AM EDT [facility] Blood VENOUS BLOOD SPECIMEN / Unknown IP Care Team Draw / Unknown 10/26/2023 4:00 AM EDT 10/26/2023 4:13 AM EDT Ros Gonzáles MD HEMATOLOGY ORDERABLE S Performing Organization Address [facility]/ZIP Co de Phone Number [facility] [place] [address] * XR ERCP (10/25/2023 4:40 PM EDT) Narrative [facility] - 10/25/2023 4:45 PM EDT See PACS for result report. Ros Gonzáles MD IM FILM LIBRARY ORD ERABLES Performing Organization Address City/[facility]/ZIP Co de Phone Number [place], [place] * (ABNORMAL) Cytology FNA (10/25/2023 3:19 PM EDT) Case Report Medical Cytology Report ? Case: [id number] ? Authorizing Provider: ??Ros Gonzáles MD ?Collected: ? 10/25/2023 1519 ? Ordering Location: ? Gastroenterology at [facility] ?? Received: ?10/25/2023 1627 ? Pathologist: ? Garrick Vuong MD ? Specimen: ?Pancreas, Head, mass ? 10/28/2023 11:54 AM [facility] Specimen Source Pancreas, Head (EUS-guided FNA) 10/28/2023 11:54 AM [facility] Final Diagnosis Positive for malignancy 10/28/2023 11:54 AM [facility] Diagnosis Discussion Adenocarcinoma. 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 10/28/2023 11:54 AM [facility] Additional Studies Block Antibody [...] The assays were performed according to the agricultural research technician's instructions using anti MLH-1 (ES05), anti-MSH-2 ([id number]), andti-MSH-6 (44), and anti-PMS-2 (MRQ-28) antibodies. 10/28/2023 11:54 AM [facility] Disclaimer(s) Formalin-fixed, paraffin-embedded tissue [...] and other diagnostic tests. 10/28/2023 11:54 AM [facility] Clinical Information 83 yrs old male/EUS/ERCP/ pancreas head mass, malignant biliary obstruction 10/28/2023 11:54 AM [facility] Immediate Assessment Fine Needle [...] Discussion for final interpretation. 10/28/2023 11:54 AM [facility] Gross Description Received in formalin, approximately 45 mL total volume of cloudy, red fluid with clots. Total preparation: Diff-Quik slide(s): 4, Pap Stain slide(s): 4, and Cell Block: 1. 10/28/2023 11:54 AM [facility] Result Note THIS RESULT REQUIRES PHYSICIAN/CRYSTAL FOLLOW UP(A) 10/28/2023 11:54 AM EDT [facility] Fine Needle Aspirate STRUCTURE OF HEAD OF PANCREAS / Unknown Non Blood Collection / Unknown 10/25/2023 3:19 PM EDT 10/25/2023 4:27 PM EDT Ros Gonzáles MD PATHOLOGY/CYTOLOGY O RDERAMARVEL [facility] [place] [address] * ERCP (10/25/2023 2:24 PM EDT) ERCP [facility] Endoscopy Procedure Date: 10/25/2023 2:24 PM ? Patient Name: Benny Zurita ? Date of : 1940 ? Age: 83 ? Order #: [id number] ? Instrument Name: [id number] ? Procedure: ? ERCP Providers: ? Aaron Alvarado ? Mariah Olmos, ? Service Desk Lead Referring MD: ?Andres Benitez MD Complications: ? [...] (10/25/2023 2:23 PM EDT) UPPER ENDOSCOPIC ULTRASOUND [facility] Endoscopy Procedure Date: 10/25/2023 2:23 PM ? Patient Name: Benny Zurita ? Date of : 1940 ? Age: 83 ? Order #: [id number] ? Instrument Name: [id number] ? Procedure: ? Upper EUS Patient Profile: ? 83m with suspected malignant ? biliary obstruction Providers: ? Andrew Reynoso, Aaron Schmitt ? Mariah Olmos, ? Service Desk Lead Referring MD: ? Medicines: ? See the [...] without invasion ? - Using a 22G sharkcore needle with stylet through ? Duodenum, FNB [...] 9.50 x10(3)/mc L 10/25/2023 4:28 AM EDT [facility] Red Blood Cell 3.76(L) 4.58 - 5.54 x10(6)/mc L 10/25/2023 4:28 AM [facility] Hemoglobin 12.2(L) 13.7 - 16.5 g/dL 10/25/2023 4:28 AM [facility] Hematocrit 34.1(L) 40.5 - 48.5 % 10/25/2023 4:28 AM [facility] Mean Cell Volume 90.7 82.9 - 93.1 fL 10/25/2023 4:28 AM [facility] Mean Cell Hemoglobin 32.4(H) 27.5 - 32.1 pg 10/25/2023 4:28 AM [facility] Mean Cell Hemoglobin Concentration 35.8(H) 32.0 - 35.7 g/dL 10/25/2023 4:28 AM [facility] Platelet 193 145 - 357 x10(3)/mc L 10/25/2023 4:28 AM [facility] Mean Platelet Volume 11.4 7.6 - 12.9 fL 10/25/2023 4:28 AM [facility] RDW Standard Deviation 46.3(H) 36.0 - 45.0 fL 10/25/2023 4:28 AM [facility] RDW coefficient of variation 13.9(H) 11.4 - 13.8 % 10/25/2023 4:28 AM [facility] NRBC% auto 0.0 % 10/25/2023 4:28 AM [facility] NRBC Absolute 0.00 0.00 - 0.00 x10(3)/mc L 10/25/2023 4:28 AM [facility] Neutrophil % 63.6 % 10/25/2023 4:28 AM [facility] Neutrophil Absolute (ANC) - Automated 2.88 1.70 - 6.10 x10(3)/mc L 10/25/2023 4:28 AM [facility] Lymph % 16.8 % 10/25/2023 4:28 AM [facility] Lymph Absolute 0.76(L) 0.90 - 3.20 x10(3)/mc L 10/25/2023 4:28 AM [facility] Monocyte % 11.1 % 10/25/2023 4:28 AM [facility] Monocyte Absolute 0.50 0.30 - 0.90 x10(3)/mc L 10/25/2023 4:28 AM [facility] Eos % 6.9 % 10/25/2023 4:28 AM [facility] Eos Absolute 0.31 0.00 - 0.40 x10(3)/mc L 10/25/2023 4:28 AM [facility] Basophil % 0.9 % 10/25/2023 4:28 AM [facility] Baso Absolute 0.04 0.00 - 0.10 x10(3)/mc L 10/25/2023 4:28 AM [facility] Immature Gran % 0.7 % 4:28 AM [facility] Immature Gran Absolute 0.03 0.00 - 0.04 x10(3)/mc L 10/25/2023 4:28 AM [facility] Blood VENOUS BLOOD SPECIMEN / Unknown IP Care Team Draw / Unknown 10/25/2023 3:53 AM EDT 10/25/2023 4:17 AM EDT Rj Rizvi MD HEMATOLOGY ORDERABLE S [facility] [place] [address] * (ABNORMAL) Comprehensive metabolic panel (10/25/2023 3:53 AM EDT) Glucose 121 65 - 199 mg/dL 10/25/2023 4:45 AM [facility] Comment:Glucose Concentratio n >=200 mg/dL plus symptoms is consistent with Diabetes Mellitus. Blood Urea Nitrogen 20 10 - 20 mg/dL 10/25/2023 4:45 AM [facility] Creatinine 0.70(L) 0.80 - 1.50 mg/dL 10/25/2023 4:45 AM [facility] Sodium 131(L) 135 - 145 mMol/L 10/25/2023 4:45 AM [facility] Potassium 3.7 3.5 - 5.0 mMol/L 10/25/2023 4:45 AM [facility] Chloride 97(L) 98 - 107 mMol/L 10/25/2023 4:45 AM [facility] Carbon Dioxide 22 22 - 31 mMol/L 10/25/2023 4:45 AM [facility] Anion Gap 12 5 - 15 mMol/L 10/25/2023 4:45 AM [facility] Calcium 8.8 8.5 - 10.5 mg/dL 10/25/2023 4:45 AM [facility] Protein, Total 5.9(L) 6.1 - 8.0 g/dL 10/25/2023 4:45 AM [facility] Albumin 3.3 3.2 - 5.2 g/dL 10/25/2023 4:45 AM EDT [facility] Aspartate Aminotransferase 190(H) <=39 unit/L 10/25/2023 4:45 AM EDT [facility] Alanine Aminotransferase 458(H) 0 - 55 unit/L 10/25/2023 4:45 AM EDT [facility] Alkaline Phosphatase 366(H) 40 - 130 unit/L 10/25/2023 4:45 AM EDT [facility] Bilirubin, Total 8.5(H) <=1.3 mg/dL 10/25/2023 4:45 AM T [facility] Est Glomerular Filtration Rate - Male 93 mL/min/1. 73 m?? 10/25/2023 4:45 AM T [facility] Comment: This patient's estimated GFR [...] AM EDT Rj Rizvi MD CHEMISTRY ORDERABLES [facility] [place] [address] * (ABNORMAL) Basic Metabolic Panel (10/24/2023 4:17 PM EDT) Glucose 147 65 - 199 mg/dL 10/24/2023 4:48 PM EDT [facility] Comment:Glucose Concentratio n >=200 mg/dL plus symptoms is consistent with Diabetes Mellitus. Blood Urea Nitrogen 17 10 - 20 mg/dL 10/24/2023 4:48 PM EDT [facility] Creatinine 0.68(L) 0.80 - 1.50 mg/dL 10/24/2023 4:48 PM EDT [facility] Sodium 131(L) 135 - 145 mMol/L 10/24/2023 4:48 PM [facility] Potassium 3.5 3.5 - 5.0 mMol/L 10/24/2023 4:48 PM [facility] Chloride 94(L) 98 - 107 mMol/L 10/24/2023 4:48 PM [facility] Carbon Dioxide 26 22 - 31 mMol/L 10/24/2023 4:48 PM [facility] Anion Gap 11 5 - 15 mMol/L 10/24/2023 4:48 PM [facility] Calcium 9.0 8.5 - 10.5 mg/dL 10/24/2023 4:48 PM [facility] Est Glomerular Filtration Rate - Male 93 mL/min/1. 73 m?? 10/24/2023 4:48 PM [facility] Comment: This patient's estimated [...] PM EDT Rj Rizvi MD CHEMISTRY ORDERABLES [facility] [place] [address] * CT Chest w Contrast (10/24/2023 1:41 PM EDT) WORKSTATION ID [id number] RAD Anatomical Region Laterality Modality Chest Computed Tomogra phy Impressions 10/24/2023 5:21 PM EDT No metastatic disease in the chest. Thank you for letting us participate in the care of this patient. ??If you are a health care provider and have any questions regarding this report, please contact the number below. ??For patients who have questions please contact the health home health care social worker that requested your imaging first. ? Narrative [...] patients who have questions please contactthe health home health care social worker that requested your imaging first. Rj Rizvi MD IMG CT ORDERABLES * (ABNORMAL) CBC (with Diff) (10/24/2023 4:11 AM EDT) White Blood Cell 5.21 4.00 - 9.50 x10(3)/mc L 10/24/2023 4:53 AM EDT [facility] Red Blood Cell 3.79(L) 4.58 - 5.54 x10(6)/mc L 10/24/2023 4:53 AM EDT [facility] Hemoglobin 12.3(L) 13.7 - 16.5 g/dL 10/24/2023 4:53 AM EDT [facility] Hematocrit 34.0(L) 40.5 - 48.5 % 10/24/2023 4:53 AM [facility] Mean Cell Volume 89.7 82.9 - 93.1 fL 10/24/2023 4:53 AM [facility] Mean Cell Hemoglobin 32.5(H) 27.5 - 32.1 pg 10/24/2023 4:53 AM [facility] Mean Cell Hemoglobin Concentration 36.2(H) 32.0 - 35.7 g/dL 10/24/2023 4:53 AM [facility] Platelet 204 145 - 357 x10(3)/mc L 10/24/2023 4:53 AM [facility] [facility] Mean Platelet Volume 11.6 7.6 - 12.9 fL 10/24/2023 4:53 AM [facility] RDW Standard Deviation 44.2 36.0 - 45.0 fL 10/24/2023 4:53 AM [facility] RDW coefficient of variation 13.4 11.4 - 13.8 % 10/24/2023 4:53 AM [facility] NRBC% auto 0.0 % 10/24/2023 4:53 AM [facility] NRBC Absolute 0.00 0.00 - 0.00 x10(3)/mc L 10/24/2023 4:53 AM [facility] Neutrophil % 70.5 % 10/24/2023 4:53 AM [facility] Neutrophil Absolute (ANC) - Automated 3.68 1.70 - 6.10 x10(3)/mc L 10/24/2023 4:53 AM [facility] Lymph % 15.2 % 10/24/2023 4:53 AM [facility] Lymph Absolute 0.79(L) 0.90 - 3.20 x10(3)/mc L 10/24/2023 4:53 AM [facility] Monocyte % 10.6 % 10/24/2023 4:53 AM EDT [facility] Monocyte Absolute 0.55 0.30 - 0.90 x10(3)/mc L 10/24/2023 4:53 AM EDT [facility] Eos % 2.5 % 10/24/2023 4:53 AM EDT [facility] Eos Absolute 0.13 0.00 - 0.40 x10(3)/mc L 10/24/2023 4:53 AM EDT [facility] Basophil % 0.6 % 10/24/2023 4:53 AM EDT [facility] Baso Absolute 0.03 0.00 - 0.10 x10(3)/mc L 10/24/2023 4:53 AM EDT [facility] Immature Gran % 0.6 % 4:53 AM EDT [facility] Immature Gran Absolute 0.03 0.00 - 0.04 x10(3)/mc L 10/24/2023 4:53 AM EDT [facility] Blood VENOUS BLOOD SPECIMEN / Unknown IP Care Team Draw / Unknown 10/24/2023 4:11 AM EDT 10/24/2023 4:43 AM EDT Rj Rizvi MD HEMATOLOGY ORDERABLE S [facility] [place] [address] * (ABNORMAL) Comprehensive metabolic panel (10/24/2023 4:11 AM EDT) Glucose 149 65 - 199 mg/dL 10/24/2023 5:55 AM EDT [facility] Comment:Glucose Concentratio n >=200 mg/dL plus symptoms is consistent with Diabetes Mellitus. Blood Urea Nitrogen 17 10 - 20 mg/dL 10/24/2023 5:55 AM EDT [facility] Creatinine 0.80 0.80 - 1.50 mg/dL 10/24/2023 5:55 AM EDT [facility] Sodium 133(L) 135 - 145 mMol/L 10/24/2023 5:55 AM [facility] Potassium 3.9 3.5 - 5.0 mMol/L 10/24/2023 5:55 AM [facility] Chloride 99 98 - 107 mMol/L 10/24/2023 5:55 AM [facility] Carbon Dioxide 22 22 - 31 mMol/L 10/24/2023 5:55 AM [facility] Anion Gap 12 5 - 15 mMol/L 10/24/2023 5:55 AM [facility] Calcium 8.8 8.5 - 10.5 mg/dL 10/24/2023 5:55 AM [facility] Protein, Total 6.0(L) 6.1 - 8.0 g/dL 10/24/2023 5:55 AM [facility] Albumin 3.4 3.2 - 5.2 g/dL 10/24/2023 5:55 AM [facility] Aspartate Aminotransferase 224(H) <=39 unit/L 10/24/2023 5:55 AM [facility] Alanine Aminotransferase 498(H) 0 - 55 unit/L 10/24/2023 5:55 AM [facility] Alkaline Phosphatase 359(H) 40 - 130 unit/L 10/24/2023 5:55 AM [facility] Bilirubin, Total 7.8(H) <=1.3 mg/dL 10/24/2023 5:55 AM [facility] Est Glomerular Filtration Rate - Male 89 mL/min/1. 73 m?? 10/24/2023 5:55 AM [facility] Comment: This patient's estimated [...] AM EDT Rj Rizvi MD CHEMISTRY ORDERABLES [facility] [place] [address] * Phosphorus (10/23/2023 4:27 PM EDT) Phosphorus 3.6 2.5 - 4.5 mg/dL 10/23/2023 7:35 PM EDT [facility] Blood VENOUS BLOOD SPECIMEN / Unknown IP Care Team Draw / Unknown 10/23/2023 4:27 PM EDT 10/23/2023 4:35 PM EDT Rj Rizvi MD CHEMISTRY ORDERABLES Performing Organization Address City/[facility]/ZIP Co de Phone Number [facility] [place] [address] * Magnesium (10/23/2023 4:27 PM EDT) Magnesium 0.76 0.69 - 1.07 mMol/L 10/23/2023 7:35 PM EDT [facility] Blood VENOUS BLOOD SPECIMEN / Unknown IP Care Team Draw / Unknown 10/23/2023 4:27 PM EDT 10/23/2023 4:35 PM EDT Rj Rizvi MD CHEMISTRY ORDERABLES Performing Organization Address City/[facility]/ZIP Co de Phone Number [facility] [place] [address] * (ABNORMAL) Basic Metabolic Panel (10/23/2023 4:27 PM EDT) Glucose 164 65 - 199 mg/dL 10/23/2023 5:36 PM [facility] Comment:Glucose Concentratio n >=200 mg/dL plus symptoms is consistent with Diabetes Mellitus. Blood Urea Nitrogen 16 10 - 20 mg/dL 10/23/2023 5:36 PM [facility] Creatinine 0.85 0.80 - 1.50 mg/dL 10/23/2023 5:36 PM [facility] Sodium 134(L) 135 - 145 mMol/L 10/23/2023 5:36 PM [facility] Potassium 2.9(LLL) 3.5 - 5.0 mMol/L 10/23/2023 5:36 PM [facility] Chloride 94(L) 98 - 107 mMol/L 10/23/2023 5:36 PM [facility] Carbon Dioxide 26 22 - 31 mMol/L 10/23/2023 5:36 PM [facility] Anion Gap 14 5 - 15 mMol/L 10/23/2023 5:36 PM [facility] Calcium 9.1 8.5 - 10.5 mg/dL 10/23/2023 5:36 PM [facility] Est Glomerular Filtration Rate - Male 87 mL/min/1. 73 m?? 10/23/2023 5:36 PM [facility] Comment: This patient's estimated [...] PM EDT Anjum Biggs MD CHEMISTRY ORDERABLES Performing Organization Address City/[facility]/ZIP Co de Phone Number [facility] [place] [address] * EKG 12 Lead (10/23/2023 1:40 PM EDT) Ventricular rate 56 BPM MUSE SYSTEM Atrial Rate 56 BPM MUSE SYSTEM P-R Interval 146 ms MUSE SYSTEM QRS Duration 122 ms MUSE SYSTEM Q-T Interval 474 ms MUSE SYSTEM QTC Calculated (Bezet) 457 ms MUSE SYSTEM Calculated P [place] 46 degrees MUSE SYSTEM Calculated R [place] -59 degrees MUSE SYSTEM Calculated T [place] 43 degrees MUSE SYSTEM INTERPRETATION Sinus bradycardia with marked sinus arrhythmia Left anterior fascicular block Left ventricular hypertrophy with QRS widening ( R in aVL , Sanju product ) Possible Lateral infarct , age undetermined Abnormal ECG No previous ECGs available Confirmed by Devon Leo MD ([id number]) on 10/24/2023 2:23:18 PM MUSE SYSTEM 10/23/2023 1:40 PM EDT 10/24/2023 2:23 PM EDT Leia Rincon MD ECG ORDERABLES Performing Organization Address [facility] Co de Phone Number MUSE SYSTEM * ABORH RECHECK (10/23/2023 1:24 PM EDT) ABORH Recheck O POSITIVE 10/23/2023 2:12 PM EDT [facility] Blood VENOUS BLOOD SPECIMEN / Unknown IP Care Team Draw / Unknown 10/23/2023 1:24 PM EDT 10/23/2023 1:29 PM EDT Leia Rincon MD BLOOD BANK LAB ORDER RICHELLE Performing Organization Address City/[facility]/ZIP Co de Phone Number [facility] [place] [address] * CT Abdomen & Pelvis w Contrast (10/23/2023 1:10 PM EDT) WORKSTATION ID [id number] RAD Anatomical Region Laterality Modality Abdomen, Pelvis [...] who have questions please contact the health home health care social worker that requested your imaging first. ? Narrative 10/23/2023 1:26 PM EDT EXAMINATION: CT [...] patients who have questions please contactthe health home health care social worker that requested your imaging first. Leia Rincon MD [facility] CT ORDERABLES * (ABNORMAL) CBC (with Diff) (10/23/2023 12:32 PM EDT) White Blood Cell 4.60 4.00 - 9.50 x10(3)/mc L 10/23/2023 1:17 PM EDT [facility] Red Blood Cell 4.00(L) 4.58 - 5.54 x10(6)/mc L 10/23/2023 1:17 PM EDT [facility] Hemoglobin 13.1(L) 13.7 - 16.5 g/dL 10/23/2023 1:17 PM EDT [facility] Hematocrit 36.2(L) 40.5 - 48.5 % 10/23/2023 1:17 PM [facility] Mean Cell Volume 90.5 82.9 - 93.1 fL 10/23/2023 1:17 PM [facility] Mean Cell Hemoglobin 32.8(H) 27.5 - 32.1 pg 10/23/2023 1:17 PM [facility] Mean Cell Hemoglobin Concentration 36.2(H) 32.0 - 35.7 g/dL 10/23/2023 1:17 PM [facility] Platelet 233 145 - 357 x10(3)/mc L 10/23/2023 1:17 PM [facility] Mean Platelet Volume 11.4 7.6 - 12.9 fL 10/23/2023 1:17 PM [facility] RDW Standard Deviation 43.7 36.0 - 45.0 fL 10/23/2023 1:17 PM [facility] RDW coefficient of variation 13.2 11.4 - 13.8 % 10/23/2023 1:17 PM [facility] NRBC% auto 0.0 % 10/23/2023 1:17 PM [facility] NRBC Absolute 0.00 0.00 - 0.00 x10(3)/mc L 10/23/2023 1:17 PM [facility] Neutrophil % 70.4 % 10/23/2023 1:17 PM [facility] Neutrophil Absolute (ANC) - Automated 3.24 1.70 - 6.10 x10(3)/mc L 10/23/2023 1:17 PM [facility] Lymph % 15.4 % 10/23/2023 1:17 PM [facility] Lymph Absolute 0.71(L) 0.90 - 3.20 x10(3)/mc L 10/23/2023 1:17 PM [facility] Monocyte % 10.0 % 10/23/2023 1:17 PM EDT [facility] Monocyte Absolute 0.46 0.30 - 0.90 x10(3)/mc L 10/23/2023 1:17 PM EDT [facility] Eos % 2.6 % 10/23/2023 1:17 PM EDT [facility] Eos Absolute 0.12 0.00 - 0.40 x10(3)/mc L 10/23/2023 1:17 PM EDT [facility] Basophil % 0.9 % 10/23/2023 1:17 PM EDT [facility] Baso Absolute 0.04 0.00 - 0.10 x10(3)/mc L 10/23/2023 1:17 PM EDT [facility] Immature Gran % 0.7 % 1:17 PM EDT [facility] Immature Gran Absolute 0.03 0.00 - 0.04 x10(3)/mc L 10/23/2023 1:17 PM EDT [facility] Blood VENOUS BLOOD SPECIMEN / Unknown Venipuncture / Unknown 10/23/2023 12:32 PM EDT 10/23/2023 12:41 PM EDT Leia Rincon MD HEMATOLOGY ORDERABLE S [facility] [place] [address] * Type and screen ([facility]/FREDY) (10/23/2023 12:32 PM EDT) ABORH Type O POSITIVE 10/23/2023 1:31 PM EDT [facility] PATIENT HISTORY Not Found 10/23/2023 1:31 PM EDT [facility] Expires at 1833 on: 10-26-2023 10/23/2023 1:31 PM EDT [facility] ANTIBODY SCREEN AUTOMATED Negative 10/23/2023 1:31 PM EDT [facility] T&S only valid at [facility] 10/23/2023 1:31 PM EDT [facility] Blood VENOUS BLOOD SPECIMEN / Unknown Venipuncture / Unknown 10/23/2023 12:32 PM EDT 10/23/2023 12:37 PM EDT Narrative [facility] - 10/23/2023 1:31 PM EDT This Type and Screen result is only valid at the [facility] Leia Rincon MD BLOOD BANK LAB ORDER RICHELLE [facility] [place] [address] * Lipase (10/23/2023 12:32 PM EDT) Pathologist [facility] Lipase 49 0 - 60 unit/L 10/23/2023 1:11 PM EDT [facility] Blood VENOUS BLOOD SPECIMEN / Unknown Venipuncture / Unknown 10/23/2023 12:32 PM EDT 10/23/2023 12:41 PM EDT Leia Rincon MD CHEMISTRY ORDERABLES Performing Organization Address City/[facility]/ZIP Co de Phone Number [facility] [place] [address] * (ABNORMAL) Comprehensive metabolic panel (10/23/2023 12:32 PM EDT) Pathologist [facility] Glucose 186 65 - 199 mg/dL 10/23/2023 1:13 PM EDT [facility] Comment:Glucose Concentratio n >=200 mg/dL plus symptoms is consistent with Diabetes Mellitus. Blood Urea Nitrogen 17 10 - 20 mg/dL 10/23/2023 1:13 PM EDT [facility] Creatinine 0.79(L) 0.80 - 1.50 mg/dL 10/23/2023 1:13 PM EDT [facility] Sodium 130(L) 135 - 145 mMol/L 10/23/2023 1:13 PM EDT [facility] Potassium 2.9(LLL) 3.5 - 5.0 mMol/L 10/23/2023 1:13 PM [facility] Chloride 92(L) 98 - 107 mMol/L 10/23/2023 1:13 PM [facility] Carbon Dioxide 24 22 - 31 mMol/L 10/23/2023 1:13 PM [facility] Anion Gap 14 5 - 15 mMol/L 10/23/2023 1:13 PM [facility] Calcium 9.1 8.5 - 10.5 mg/dL 10/23/2023 1:13 PM [facility] Protein, Total 6.5 6.1 - 8.0 g/dL 10/23/2023 1:13 PM [facility] Albumin 3.8 3.2 - 5.2 g/dL 10/23/2023 1:13 PM [facility] Aspartate Aminotransferase 258(H) <=39 unit/L 10/23/2023 1:13 PM [facility] Alanine Aminotransferase 577(H) 0 - 55 unit/L 10/23/2023 1:13 PM [facility] Alkaline Phosphatase 375(H) 40 - 130 unit/L 10/23/2023 1:13 PM [facility] Bilirubin, Total 8.6(H) <=1.3 mg/dL 10/23/2023 1:13 PM [facility] Est Glomerular Filtration Rate - Male 89 mL/min/1. 73 m?? 10/23/2023 1:13 PM [facility] Comment: This patient's estimated [...] PM EDT Leia Rincon [place] [address] documented in this encounter Visit Diagnoses Diagnosis Hypokalemia- Primary Hypopotassemia Jaundice Jaundice, unspecified, not of Pancreatic mass Unspecified disease of pancreas Hypokalemia Hypopotassemia Painless jaundice Malignant neoplasm of prostate Painless jaundice Malignant neoplasm of prostate- Primary Androgen deprivation therapy Encounter for therapeutic drug monitoring S/P radiotherapy Convalescence following radiotherapy documented in this encounter Admitting Diagnoses Diagnosis Cholestatic [...] 40 mg, Subcutaneous, NIGHTLY, First dose on 10/23/23 at 2100, Until Discontinued, Routine Given 10/26/2023 9:34 PM EDT 40 mg Given 10/25/2023 8:57 PM EDT 40 mg Given 10/24/2023 8:39 PM EDT 40 mg fentaNYL (PF) (50 mcg/mL) injection 50 mcg 50 mcg, Intravenous, ONCE, 1 dose, On 10/25/23 at 1700, Endoscopy (Recovery-Hospital Unit), Routine Given 10/25/2023 5:00 PM EDT 50 mcg iohexoL (Omnipaque) (350 mg/mL) solution 0-200 mL 0-200 mL, Intravenous, ONCE PRN, 1 dose, Starting on 10/23/23 at 1305, Until 10/23/23 at 1305, Per Protocol, Warning Vesicant/Irritant Medication , Radiology Contrast, Routine Given 10/23/2023 1:05 PM EDT 109 mLs iohexoL (Omnipaque) (350 mg/mL) solution 0-200 mL 0-200 mL, Intravenous, ONCE PRN, 1 dose, Starting on Wed10/24/23 at 1341, Until Wed10/24/23 at 1342, Per Protocol, Warning Vesicant/Irritant Medication , Radiology Contrast, Routine Given 10/24/2023 1:42 PM EDT 120 mLs ketorolac (Toradol) (30 mg/mL) injection 15 mg 15 mg, Intravenous, EVERY 8 HOURS PRN, Starting on Wed10/25/23 at 1755, Until Wed10/27/23 at 1717, Pain, first line pain, Routine Given 10/26/2023 12:00 AM EDT 15 mg lactated ringers infusion 100 mL/hr, Intravenous, CONTINUOUS, Starting on Wed10/25/23 at 1400, Until Wed10/26/23 at 0826 New Bag 10/25/2023 1:43 PM EDT 100 mL/hr 100 mL/hr magnesium oxide (Mag-Ox) tablet 400 mg 400 mg, Oral, ONCE, 1 dose, On Wed10/26/23 at 0600, Routine Given 10/26/2023 6:36 AM EDT 400 mg magnesium sulfate 2 g in sterile water 50 mL infusion 2 g, Intravenous, ONCE, 1 dose, On Wed10/27/23 at 0845, Administer over 120 Minutes New Bag 10/27/2023 9:42 AM EDT 2 g 25 mL/hr melatonin tablet 3 mg 3 mg, Oral, NIGHTLY PRN, Starting on 10/23/23 at 2028, Until Wed10/27/23 at 1717, Sleep, Sleep, Routine [...] mg/mL) injection 4 mg 4 mg, Intravenous, ONCE, 1 dose, On 10/23/23 at 1330, STAT Given 10/23/2023 1:37 PM EDT 4 mg ondansetron (pf) (Zofran) (2 mg/mL) injection [...] Oral, EVERY 8 HOURS PRN, Starting on Wed10/23/23 at 2027, Until Wed10/27/23 at 1717, Nausea, If multiple antiemetics are ordered, use ondansetron first. PO Preferred. If patient unable to take PO, may give IV if ordered. May repeat times one in 45 minutes if ineffective. , Routine Given 10/26/2023 2:11 PM EDT 4 mg oxyCODONE (Roxicodone) tablet 5 mg 5 mg, Oral, EVERY 4 HOURS PRN, Starting on Wed10/25/23 at 1754, Until Wed10/27/23 at 1717, Pain, 2nd line pain, Routine Given 10/26/2023 4:45 AM EDT 5 mg polyethylene glycoL (Miralax) packet 17 g 17 g, Oral, DAILY, First dose on Wed10/26/23 at 2100, Until Discontinued, Routine Given 10/26/2023 9:34 PM EDT 17 g potassium chloride 10 mEq in sterile water 100 mL infusion 10 mEq, Intravenous, EVERY HOUR, 6 doses, First dose on 10/23/23 at 1900, Last dose on Wed10/24/23 at 0000, Administer over 60 Minutes, For serum K less than 3.3 mMol/L - Give 10 mEq IV x six doses (60 mEq total) Serum potassium levels should be re-checked 1.5 hours after completion of last dose & prior to administration of any additional doses. Warning Vesicant/Irritant Medication New Bag 10/24/2023 12:18 AM EDT 10 mEq 100 mL/hr New Bag 10/24/2023 12:00 AM EDT 10 mEq 100 mL/hr New Bag 10/23/2023 11:18 PM EDT 10 mEq 100 mL/hr potassium chloride ER (Klor-Con M) crystal tablet 20 mEq 20 mEq, Oral, EVERY 4 HOURS, 3 doses, First dose on Wed10/23/23 at 1340, Last dose on Wed10/23/23 at 2140, potassium chloride ER particle/crystal tablets (Klor-Con M) may be broken in half and each half swallowed separately. Tablets can be dissolved in ~4 ounces of water; allow ~2 minutes to dissolve, stir well and drink immediately. Do not crush, chew, or suck on tablet., Routine Given 10/23/2023 3:30 PM EDT 20 mEq Given 10/23/2023 1:37 PM EDT 20 mEq potassium chloride ER (Klor-Con M) crystal tablet 40 mEq 40 mEq, Oral, ONCE, 1 dose, On Wed10/26/23 at 1345, potassium chloride ER particle/crystal tablets (Klor-Con M) may be broken in half and each half swallowed separately. Tablets can be dissolved in ~4 ounces of water; allow ~2 minutes to dissolve, stir well and drink immediately. Do not crush, chew, or suck on tablet., Routine Given 10/26/2023 2:03 PM EDT 40 mEq potassium phosphate 10 mMol in sodium chloride 0.9% 100 mL infusion 10 mmol, Intravenous, ONCE, 1 dose, On 10/23/23 at 1410, Administer over 4 Hours, Administer over 4-6 hours New Bag 10/23/2023 2:56 PM EDT 10 mmol 25 mL /hr senna-docusate (Pericolace) 8.6-50 mg per tablet 2 tablet 2 tablet, Oral, 2 TIMES DAILY, First dose on Wed10/26/23 at 1030, Until Discontinued, Routine Given 10/27/2023 8:13 AM EDT 2 tablets Given 10/26/2023 9:35 PM EDT 2 tablets Given 10/26/2023 10:26 AM EDT 2 tablets tamsulosin (Flomax) capsule 0.4 mg 0.4 mg, Oral, NIGHTLY, First dose (after last modification) on 10/23/23 at 2115, Until Discontinued, DO NOT CRUSH [...] 40 mg, Subcutaneous, NIGHTLY, First dose on 10/23/23 at 2100, Until Discontinued, Routine 1337 (APR Hold - Provider: Admin Adt - Reason: Transfer to a Procedural area)172 (MAR Unhold - Provider: Admin Adt)2056 (Given - Provider: Vanesa Vance, CARISSA) 2133 (Given - Provider: Peter Dixon, CARISSA) fentaNYL (PF) (50 mcg/mL) injection 50 mcg (COMPLETED) 50 mcg, Intravenous, ONCE, 1 dose, On Wed10/25/23 at 1700, Endoscopy (Recovery-Hospital Unit), Routine 1700 (Given - Provider: Alethea Barnes, CARISSA) magnesium oxide (Mag-Ox) tablet 400 mg (COMPLETED) 400 mg, Oral, ONCE, 1 dose, On Wed10/26/23 at 0600, Routine 0636 (Given - Provider: Vanesa Vance, CARISSA) magnesium sulfate 2 g in sterile water 50 mL infusion (COMPLETED) 2 g, Intravenous, ONCE, 1 dose, On Wed10/27/23 at 0845, Administer over 120 Minutes 0942 (New Bag - Provider: Rosemary Guzmán, CARISSA)1142 (Stopped - Provider: Rosemary Guzmán, RN) montelukast (Singulair) tablet 5 mg 5 mg, Oral, NIGHTLY, First dose on 10/23/23 at 2100, Until Discontinued, Routine 1337 (APR Hold - Provider: Admin Adt - Reason: Transfer to a Procedural area)1725 ([employer] [facility] Unhold - Provider: Admin Adt)2057 (Given - Provider: Vanesa Vance, CARISSA) 2133 (Given - Provider: Peter Dixon, RN) polyethylene glycoL (Miralax) packet 17 g 17 g, Oral, DAILY, First dose on Wed10/26/23 at 2100, Until Discontinued, Routine 2133 (Given - Provider: Peter Dixon, RN) potassium chloride ER (Klor-Con M) crystal [...] tablet., Routine 1403 (Given - Provider: Rosemary Guzmán, CARISSA) senna-docusate (Pericolace) 8.6-50 mg per tablet 2 tablet 2 tablet, Oral, 2 TIMES DAILY, First dose on Wed10/26/23 at 1030, Until Discontinued, Routine 1026 (Given - Provider: Rosemary Guzmán, CARISSA)2134 (Given - Provider: Peter Dixon, CARISSA) 0813 (Given - Provider: Rosemary Guzmán, CARISSA) tamsulosin (Flomax) capsule 0.4 mg 0.4 mg, Oral, NIGHTLY, First dose (after last modification) on Wed10/23/23 at 2115, Until Discontinued, DO NOT CRUSH OR CHEW, Routine 1337 ([facility] Hold - Provider: Admin Adt - Reason: Transfer to a Procedural area)1725 ([facility] Unhold - Provider: Admin Adt)2056 (Given - Provider: Vanesa Vance, CARISSA) 2134 (Given - Provider: Peter Dixon, RN) Continuous Medication Order 10/25/2023 10/26/2023 10/27/2023 lactated ringers infusion (CANCELED) 100 mL/hr, Intravenous, CONTINUOUS, Starting on Wed10/25/23 at 1400, Until Wed10/26/23 at 0826 1343 (New Bag - Provider: Alethea Barnes, RN) 0826 (Stopped - Provider: Rosemary Guzmán, RN) PRN Medication Order 10/25/2023 10/26/2023 10/27/2023 bisacodyL (Dulcolax) suppository 10 mg 10 mg, Rectal, DAILY PRN, Starting on Wed10/27/23 at 0830, Until Wed10/27/23 at 1717, Constipation, Routine 1224 (Given - Provider: Rosemary Guzmán, RN) ketorolac (Toradol) (30 mg/mL) injection 15 mg 15 mg, Intravenous, EVERY 8 HOURS PRN, Starting on 10/25/23 at 1755, Until Wed10/27/23 at 1717, Pain, first line pain, Routine 0000 (Given - Provider: Vanesa Vance, CARISSA) melatonin tablet 3 mg 3 mg, Oral, NIGHTLY PRN, Starting on 10/23/23 at 2027, Until Wed10/27/23 at 1717, Sleep, Sleep, Routine 1337 (MAR Hold - Provider: Admin Adt - Reason: Transfer to a Procedural area)172 (MAR Unhold - Provider: Admin Adt)2057 (Given - Provider: Vanesa Vance, CARISSA) 2133 (Given - Provider: Peter Dixon, CARISSA) ondansetron (pf) (Zofran) (2 mg/mL) injection 4 [...] at 202, Until Wed10/27/23 at 1717, Nausea, If multiple antiemetics are ordered, use ondansetron first. PO Preferred. If patient unable to take PO, may give IV if ordered. May repeat times one in 45 minutes if ineffective. , Routine 1337 (APR Hold - Provider: Admin Adt - Reason: Transfer to a Procedural area)1726 (MAR Unhold - Provider: Admin Adt) 1411 (Given - Provider: Rosemary Guzmán, CARISSA) oxyCODONE (Roxicodone) tablet 5 mg 5 mg, Oral, EVERY 4 HOURS PRN, Starting on 10/25/23 at 1754, Until 10/27/23 at 1717, Pain, 2nd line pain, Routine 0445 (Given - Provider: Vanesa Vance RN) Linked Groups Order Group 1: ondansetron ODT (Zofran-ODT) disintegrating tablet 4 mgJump to med 4 mg, Oral, EVERY 8 HOURS PRN, Starting on 10/23/23 at 2028, Until Wed10/27/23 at 1717, Nausea, If multiple antiemetics are ordered, use ondansetron first. PO Preferred. If patient unable to take PO, may give IV if ordered. May repeat times one in 45 minutes if ineffective. , Routine Or ondansetron (pf) (Zofran) (2 mg/mL) injection 4 mgJump to med 4 mg, Intravenous, EVERY 8 HOURS PRN, Starting on 10/23/23 at 2028, Until 10/27/23 at 1717, Nausea, 4 mg,Oral,EVERY 8 HOURS PRN, Nausea,Vomiting If multiple antiemetics are ordered, use ondansetron first. May repeat times one in 30 minutes if ineffective. documented in this encounter Care Teams Head Of Geography Relationship Specialty Start Date End Date Jez Vance MD [address] [place] [address] PCP - General 01/07/10 documented as of this encounter
--- OUTSIDE RECORDS SUMMARY | 2023-11-21 00:08 | XMS_ITS | Encounter Summary ---
[facility] Organization [facility] Address [facility] [place] [address] Care Team Providers Care Mutual Funds Agent Name Role Phone Jez Vance MD Primary Care Provider +1 [phone] Encounter Details Date Type Department Care Team (Late st Contact Info) Description 10/29/2023 Telephone [place] [phone] Carmen Obrien MD [facility] [place] [address] Social History Tobacco Use Types Packs/Day Years Used Date Smoking Tobacco: Never Smokeless Tobacco: Never Alcohol Use Standard Drinks/Week Comments Yes 1 (1 standard drink = 0.6 oz pur e alcohol) social drinker once a month [facility] Utilities Answer Date Recorded In the past 12 months has [employer], gas, oil, or water [employer] threatened to shut off services in your [...] in the past 12 m [facility], were you homeless or living in a usp (including now)? No 10/25/2023 DH IPV Inpatient [...] encounter Miscellaneous Notes * Telephone Encounter - Carmen Obrien MD - 10/29/2023 9:36 AM EDT Pancreas tumor clinic triage note Mr. Zurita is an 83-year-old man from [place], [place]. His past medical history is notable forprostate cancer on Lupron, hypertension, hyperlipidemia, and mild asthma. He presented with progressive weakness and nausea and was found to be hypokalemic with abnormal LFTs. He underwent a workup at [facility] as detailed below. 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 10/25/[address] Reynoso showed a 14 mm hypoechoic mass obstructing the bile duct and pancreatic duct in close proximity to the portal venous confluence without invasion. FNB was performed. 10/24/2023 CT chest showed no evidence of metastatic disease. 10/23/2023 CT abdomen pelvis with IV contrast showed a subtle mass in the head of the pancreas obstructing the bile duct and pancreatic duct with possible abutment, no venous deformity, along the lateral aspect of the portal vein for less than 180 degrees. The primary tumor will be designated technically resectable. 10/27/2023 discharged to home from hospital medicine at [facility]. Patient needs evaluation at the Pancreas Tumor Clinic (PTC) and presentation the GI tumor board. Shorty Obrien MD 10/29/2023 9:39 AM documented in this encounter Plan of Treatment Upcoming Encounters Date Type Department Care Team (Late st Contact Info) Description 11/30/2023 9:45 AM EDT TH Visit (TeleHealth) Radiation Oncology at [address] [phone] Adrienne Singh PA [facility] DR HEMATOLOGY [place] [address] 11/30/2023 10:30 AM EDT Infusion Hematology Oncology at [address] [phone] documented as of this encounter Visit Diagnoses Not on filedocumented in this encounter Care Teams Mutual Funds Agent Relationship Specialty Start Date End Date Jez Vance MD [address] [place] [address] PCP - General 01/07/10 documented as of this encounter
--- OUTSIDE RECORDS SUMMARY | 2023-11-21 00:08 | XMS_ITS | Encounter Summary ---
Author Organization [facility] Address [facility] [place] [address] Care Team Providers Care Director Sports Name Role Phone Jez Vance MD Primary Care Provider +1 [phone] Encounter Details Date Type Department Care Team (Late st Contact Info) Description 10/28/2023 Orders [place] [address] Andrew Reynoso MD [facility] [place] [address] Social History Tobacco Use Types Packs/Day Years Used Date Smoking Tobacco: Never Smokeless Tobacco: Never Alcohol Use Standard Drinks/Week Comments Yes 1 (1 standard drink = 0.6 oz pur e alcohol) social drinker once a month [facility] Utilities Answer Date Recorded In the past 12 months has [employer], gas, oil, or water [employer] threatened to shut off services in your [...] place to sleep or slept in a custodial (including now)? No 08/06/2022 Housing Stability Vital Sign Answer Omari e Recorded In the last 12 months, was t here a time when you were not able to pay the mortgage or rent on time? No 10/25/2023 In the past 12 months, how m any times have you moved where you were living? 1 10/25/2023 At any time in the past 12 m [facility], were you homeless or living in a custodial (including now)? No 10/25/2023 DH IPV Inpatient [...] EDT TH Visit (TeleHealth) Radiation Oncology at [address] [phone] Adrienne Singh PA [facility] HEMATOLOGY [place] [address] 11/30/2023 10:30 AM EDT Infusion Hematology Oncology at [address] [phone] documented as of this encounter Visit Diagnoses Not on filedocumented in this encounter Care Teams Director Sports Relationship Specialty Start Date End Date Jez Vance MD [address] [place], [place] [id number] PCP - General 01/07/10 documented as of this encounter
--- OUTSIDE RECORDS SUMMARY | 2023-11-21 00:09 | XMS_ITS | Encounter Summary ---
Author Organization [facility] Address [facility] [place] [address] Care Team Providers Care Structural Engineering Drafting Officer Name Role Phone Jez Vance MD Primary Care Provider +1 [phone] Encounter Details Date Type Department Care Team (Latest Contact Info) Description 07/15/2023 Travel Social History Tobacco Use Types Packs/Day Years Used Date Smoking Tobacco: Never Smokeless Tobacco: Never Alcohol Use Standard Drinks/Week Comments Yes 1 (1 standard drink = 0.6 oz pur e alcohol) social drinker once a month Overall Financial Resource Strain (CARDIA) Answe r [...] the money to buy more. Never true 08/07/19 23 Within the past 12 months, t he food you bought just didn't last and you didn't have money to get more. Never true 08/06/2022 PRAPARE - Transportation Answer Date Re corded In the past 12 months, has l ack of transportation kept you from medical appointments or from getting medications? No 07/17 In the past 12 months, has l ack of transportation kept you from meetings, work, or from getting things needed for daily living? No 08/06/2022 Housing Stability Vital Sign Answer [...] in a longterm (including now)? No 08/06/2022 Sex and Gender Information Value Date Recorded Sex Assigned at Not on file Gender Identity Not on file Sexual Orientation Not on file documented as of this encounter Plan of Treatment Upcoming Encounters Date Type Department Care Team (Late st Contact Info) Description 11/30/2023 9:45 AM EDT TH Visit (TeleHealth) Radiation Oncology at [address] [phone] Adrienne Singh PA [facility] [place] [address] 11/30/2023 10:30 AM EDT Infusion Hematology Oncology at [address] [phone] documented as of this encounter Visit Diagnoses Not on filedocumented in this encounter Care Teams Structural Engineering Drafting Officer Relationship Specialty Start Date End Date Jez Vance MD [address] [place] [address] PCP - General 01/07/10 documented as of this encounter
--- OUTSIDE RECORDS SUMMARY | 2023-11-21 00:09 | XMS_ITS | Encounter Summary ---
Author Organization [facility] Address [facility] [place] [address] Care Team Providers Care Design Drafter Name Role Phone Jez Vance MD Primary Care Provider [phone] [phone] Encounter Details Date Type Department Care Team (Late st Contact Info) Description 12/28/2022 Telephone Radiation Oncology at [address] [phone] Joanie Ma Social History Tobacco Use Types Packs/Day Years [...] place to sleep or slept in a fdc (including now)? No 08/06/2022 Sex and Gender Information Value Date Recorded Sex Assigned at Not on file Gender Identity Not on file Sexual Orientation Not on file documented as of this encounter Miscellaneous Notes * Telephone Encounter - Joanie Jean - 12/28/2022 12:43 PM EST Benny called in to cancel his end of treatment call with Dr. Hayes because he is on his was to [place] for the winter and was assisting with a family emergency. I called Benny to get an estimate onwhen he plans to return to the area so we can set up a placeholder follow up. Benny said it is hardto tell in this moment in time but he said he typically likes to be back at the end of June. I offered him the option of planning to return to the clinic at the beginning of July and Benny felt it patricia appropriate timeline. Benny stated again that he is feeling fine and was so grateful to have been treated at the clinic. He felt that he had a positive experience on something that is generally negative. Benny confirmed he will plan to call in the interim with concerns if they arise. documented in this encounter Plan of Treatment Upcoming Encounters Date Type Department Care Team (Late st Contact Info) Description 11/30/2023 9:45 AM EDT TH Visit (TeleHealth) Radiation Oncology at [address] [phone] Adrienne Singh PA [facility] H[place]AT[place] [address] 11/30/2023 10:30 AM EDT Infusion Hematology Oncology at [address] [phone] documented as of this encounter Visit Diagnoses Not on filedocumented in this encounter Care Teams Design Drafter Relationship Specialty Start Date End Date Jez Vance MD [address] [place] [address] PCP - General 01/07/10 documented as of this encounter
--- OUTSIDE RECORDS SUMMARY | 2023-11-21 00:09 | XMS_ITS | Encounter Summary ---
Author Organization [facility] Address [facility] [place] [address] Care Team Providers Care Master In Chancery Name Role Phone Jez Vance MD Primary Care Provider [phone] [phone] Encounter Details Date Type Department Care Team (Late st Contact Info) Description 10/21/2023 Interpretation Only [address] [phone] Jez Vance MD [address] [place] [address] Social History Tobacco Use Types Packs/Day Years [...] in a residential (including now)? No 08/06/2022 Sex and Gender Information Value Date Recorded Sex Assigned at Not on file Gender Identity Not on file Sexual Orientation Not on file documented as of this encounter Plan of Treatment Upcoming Encounters Date Type Department Care Team (Late st Contact Info) Description 11/30/2023 9:45 AM EDT TH Visit (TeleHealth) Radiation Oncology at [address] [phone] Adrienne Singh PA [facility] DR [place] [address] 11/30/2023 10:30 AM EDT Infusion Hematology Oncology at [address] [phone] documented as of this encounter Procedures Procedure Name Priority Date/Time Associated Diagnosis Comments US ABDOMEN LIMITED Routine 10/21/2023 9: 40 AM EDT documented in this encounter Results * US Abdomen Limited (10/21/2023 9:40 AM EDT) PT CLASS O RAD ADMITDTTM [id number] RAD PT RAD INFO [id number]^Genere aux^Jez^H RAD EXAM DESC UABDLIM^US Abdomen Limited^RIS [...] who have questions please contact the health rn intensive care unit that requested your imaging first. ? Electronically signed by: Milton Klein MD, [facility] ([phone]), at 10/21/2023 11:12 AM Narrative 10/21/2023 11:12 [...] patients who have questions please contactthe health rn intensive care unit that requested your imaging first. Electronically signed by: Milton Klein MD, [facility]([phone]), at 10/21/2023 11:12 AM Jez Vance MD IMG US GEN ORDERA BLES documented in this encounter Visit Diagnoses Not on filedocumented in this encounter Care Teams Master In Chancery Relationship Specialty Start Date End Date Jez Vance MD [address] [place] [address] PCP - General 01/07/10 documented as of this encounter
--- OUTSIDE RECORDS SUMMARY | 2023-11-21 00:09 | XMS_ITS | Encounter Summary ---
Author Organization [facility] Address [facility] [place] [address] Care Team Providers Care Concrete Float Maker Name Role Phone Jez Vance MD Primary Care Provider +1 [phone] Encounter Details Date Type Department Care Team (Late st Contact Info) Description 07/01/2023 External Results [place] [address] Adrienne Singh MD [facility] [place] [address] Social History Tobacco Use Types Packs/Day Years [...] in a snf (including now)? No 08/06/2022 Sex and Gender Information Value Date Recorded Sex Assigned at Not on file Gender Identity Not on file Sexual Orientation Not on file documented as of this encounter Plan of Treatment Upcoming Encounters Date Type Department Care Team (Late st Contact Info) Description 11/30/2023 9:45 AM EDT TH Visit (TeleHealth) Radiation Oncology at [address] [phone] Adrienne Singh PA [facility] HEMATOLOGY [place] [address] 11/30/2023 10:30 AM EDT Infusion Hematology Oncology at [address] [phone] documented as of this encounter Procedures Procedure Name Priority Date/Time Associated Diagnosis Comments [facility] RESULT Routine 07/01/2023 9:45 AM EDT CBC (WITH DIFF) Routine 07/01/2023 9:45 AM EDT TESTOSTERONE, TOTAL Routine 07/01/2023 9 :45 AM EDT COMPREHENSIVE METABOLIC PANEL Routine 07/01/2023 9:45 AM EDT documented in this encounter Results * (ABNORMAL) Testosterone, total (07/01/2023 9:45 AM EDT) Testosterone 11(L) [facility] 07/01/2023 9:45 AM EDT 07/01/2023 9:48 AM EDT Narrative [facility] - 07/11/2023 5:00 PM EDT Component ? Value ?RefRange ??Units ? Status Abn? TESTOSTERONE, TOTAL, MALES ?11 ? 250-827 ?? ng/dL ? F ?L (ADULT), [place] ? In hypogonadal males, Testosterone, Total, LC/MS/MS, ? is the recommended assay due to the diminished ? accuracy of immunoassay at levels below 250 ng/dL. ? This test code (07549) must be collected in a ? red-top tube with no gel. ? REPORT COMMENT: ? FASTING:NO Adrienne Singh MD CHEMISTRY ORDERABLES [facility] [address] [place] [address] FLOOR, [place] [address] * (ABNORMAL) CBC (with Diff) (07/01/2023 9:45 AM EDT) White Blood Cell 4.2 3.8 - 10.8 Thousand/ uL [facility] Red Blood Cell 4.18(L) 4.20 - 5.80 Million/u L [facility] Hemoglobin 13.8 13.2 - 17.1 g/dL [facility] Hematocrit 40.7 38.5 - 50.0 % [facility] Mean Cell Volume 97.4 80.0 - 100.0 fL [facility] Mean Cell Hemoglobin 33.0 27.0 - 33.0 pg [facility] Mean Cell Hemoglobin Concentration 33.9 32.0 - 36.0 g/dL [facility] RDW coefficient of variation 12.8 11.0 - 15.0 % [facility] Platelet 203 140 - 400 Thousand/ uL [facility] Mean Platelet Volume 10.8 7.5 - 12.5 fL [facility] Neutrophil Absolute (ANC) - Automated 2780 1500 - 7800 cells/uL [facility] Lymphocytes Abs 739(L) 850 - 3900 cells/uL [facility] Monocyte Abs 466 200 - 950 cells/uL [facility] Eosinophils Abs 193 15 - 500 cells/uL [facility] Baso Absolute 21 0 - 200 cells/uL [facility] Neutrophil % 66.2 % [facility] Lymph % 17.6 % [facility] Monocyte % 11.1 % [facility] Eos % 4.6 % [facility] Basophil % 0.5 % [facility] 07/01/2023 9:45 AM EDT 07/01/2023 9:48 AM EDT Adrienne Singh MD HEMATOLOGY ORDERABLE S [facility] [address] [facility] [address], [place] [address] [facility] [address] [place] [address] * [facility] Result (07/01/2023 9:45 AM EDT) [facility] Result PSA, POST-PROST ATECTOMY [facility] Comment: Test performed by: [facility] [address] [place], [place] ??[address] Resident Director: ??HAMZAH CANDELARIO MD,PHD,[place] 07/01/2023 9:45 AM EDT 07/01/2023 9:48 AM EDT Narrative [facility] - 07/11/2023 5:00 PM EDT Component ? Value ?RefRange ??Units ? Status Abn? PSA, ICMA ? <0.02 ?ng/mL ? F ? REFERENCE RANGES for PSA: ? LESS THAN 0.10 ng/mL AFTER RADICAL PROSTATECTOMY. ? 4.0 ng/mL OR LESS IN HEALTHY MALES WITHOUT PROSTATECTOMY. ? PSA values obtained with different assay methods or kits ? cannot be used interchangeably. ? This test was performed using the [employer] DxI ? method. PSA, ICMA is not to be used as a diagnostic ? procedure without confirmation of the diagnosis by another ? established product or procedure. ? The lower limit of accurate quantification for this assay is ? 0.02 ng/mL. PSA values less than 0.02 ng/mL cannot be ? accurately measured and will be reported as less than 0.02 ? ng/mL. Specimens with PSA levels below the lower limit of ? accurate quantification should be considered as negative. In ? patients with a negative result for post prostatectomy PSA, ? serial monitoring of PSA levels at regular intervals, along ? with physical examinations and other tests, may help to ? detect recurrent prostate cancer. Adrienne Singh MD POINT OF CARE TEST O RDERABLES [facility] [address] [facility] [address]LO[address], [place] [address] [facility] [address] [place] [address] * Comprehensive metabolic panel (non-fasting) (07/01/2023 9:45 AM EDT) Glucose Fasting 106 65 - 139 mg/dL [facility] Comment: ? Non-fasting reference interval Blood Urea Nitrogen 15 7 - 25 mg/dL [facility] Creatinine 0.70 0.70 - 1.22 mg/dL [facility] Est Glomerular Filtration Rate 93 > OR = 60 mL/min/1 .73m2 [facility] BUN/Cre Ratio SEE NOTE: 6 - 22 (calc) [facility] Comment: ?? Not Reported: BUN and Creatinine are within ?? reference range. ? Sodium 136 135 - 146 mmol/L [facility] Potassium 3.7 3.5 - 5.3 mmol/L [facility] Chloride 99 98 - 110 mmol/L [facility] Carbon Dioxide 29 20 - 32 mmol/L [facility] Calcium 9.1 8.6 - 10.3 mg/dL [facility] Protein, Total 6.1 6.1 - 8.1 g/dL [facility] Albumin 4.0 3.6 - 5.1 g/dL [facility] Globulin 2.1 1.9 - 3.7 g/dL (calc) [facility] Alb/Globulin Ratio 1.9 1.0 - 2.5 (calc) [facility] Bilirubin, Total 0.5 0.2 - 1.2 mg/dL [facility] Alkaline Phosphatase 42 35 - 144 U/L [facility] Aspartate Aminotransferase 20 10 - 35 U/L [facility] Alanine Aminotransferase 24 9 - 46 U/L [facility] 07/01/2023 9:45 AM EDT 07/01/2023 9:48 AM EDT Adrienne Singh MD CHEMISTRY ORDERABLES [facility] [address] [facility] [address]LO[address], [place] [address] [facility] [address] [place] [address] documented in this encounter Visit Diagnoses Not on filedocumented in this encounter Care Teams Concrete Float Maker Relationship Specialty Start Date End Date Jez Vance MD [address] [place] [address] PCP - General 01/07/10 documented as of this encounter
--- OUTSIDE RECORDS SUMMARY | 2023-11-21 00:09 | XMS_ITS | Encounter Summary ---
Author Organization [facility] Address [facility] [place] [address] Care Team Providers Care E Commerce Solution Architect Name Role Phone Jez Vance MD Primary Care Provider [phone] [phone] Encounter Details Date Type Department Care Team (Latest Contact Info) Description 11/09/2022 Travel Social History Tobacco Use Types Packs/Day [...] place to sleep or slept in a halfway (including now)? No 08/06/2022 Sex and Gender Information Value Date Recorded Sex Assigned at Not on file Gender Identity Not on file Sexual Orientation Not on file documented as of this encounter Plan of Treatment Upcoming Encounters Date Type Department Care Team (Late st Contact Info) Description 11/30/2023 9:45 AM EDT TH Visit (TeleHealth) Radiation Oncology at [address] [phone] Adrienne Singh PA [facility] [place] [address] 11/30/2023 10:30 AM EDT Infusion Hematology Oncology at [address] [phone] documented as of this encounter Visit Diagnoses Not on filedocumented in this encounter Care Teams E Commerce Solution Architect Relationship Specialty Start Date End Date Jez Vance MD [address] [place] [address] PCP - General 01/07/10 documented as of this encounter
--- OUTSIDE RECORDS SUMMARY | 2023-11-21 00:09 | XMS_ITS | Encounter Summary ---
Author Organization [facility] Address [facility] [place] [address] Care Team Providers Care Traveling Representative Name Role Phone Jez Vance MD Primary Care Provider +1 [phone] Encounter Details Date Type Department Care Team (Late st Contact Info) Description 06/25/2023 Orders Only Radiation Oncology at [address] [phone] Adrienne Singh PA [facility] DR [place] [address] Malignant neoplasm of prostate (Primary Dx); Androgen deprivation therapy; S/P radiotherapy Social History Tobacco Use Types Packs/Day Years [...] in a half-way (including now)? No 08/06/2022 Sex and Gender Information Value Date Recorded Sex Assigned at Not on file Gender Identity Not on file Sexual Orientation Not on file documented as of this encounter Plan of Treatment Upcoming Encounters Date Type Department Care Team (Late st Contact Info) Description 11/30/2023 9:45 AM EDT TH Visit (TeleHealth) Radiation Oncology at [address] [phone] Adrienne Singh PA [facility] DR [place] [address] 11/30/2023 10:30 AM EDT Infusion Hematology Oncology at [address] [phone] documented as of this encounter Visit Diagnoses Diagnosis Malignant neoplasm of prostate- Primary Androgen deprivation therapy Encounter for therapeutic drug monitoring S/P radiotherapy Convalescence following radiotherapy Malignant neoplasm of prostate- Primary Androgen deprivation therapy Encounter for therapeutic drug monitoring S/P radiotherapy Convalescence following radiotherapy documented in this encounter Care Teams Traveling Representative Relationship Specialty Start Date End Date Jez Vance MD [address] [place] [address] PCP - General 01/07/10 documented as of this encounter
--- OUTSIDE RECORDS SUMMARY | 2023-11-21 00:09 | XMS_ITS | Encounter Summary ---
Author Organization [facility] Address [facility] [place] [address] Care Team Providers Care Kiln Tester Name Role Phone Jez Vance MD Primary Care Provider +1 [phone] Encounter Details Date Type Department Care Team (Latest Contact Info) Description 11/16/2022 Travel Social History Tobacco Use Types Packs/Day [...] place to sleep or slept in a nursing home (including now)? No 08/06/2022 Sex and Gender Information Value Date Recorded Sex Assigned at Not on file Gender Identity Not on file Sexual Orientation Not on file documented as of this encounter Plan of Treatment Upcoming Encounters Date Type Department Care Team (Late st Contact Info) Description 11/30/2023 9:45 AM EDT TH Visit (TeleHealth) Radiation Oncology at [address] [phone] Adrienne Singh PA [facility] [place] [address] 11/30/2023 10:30 AM EDT Infusion Hematology Oncology at [address] [phone] documented as of this encounter Visit Diagnoses Not on filedocumented in this encounter Care Teams Kiln Tester Relationship Specialty Start Date End Date Jez Vance MD [address] [place] [address] PCP - General 01/07/10 documented as of this encounter
--- OUTSIDE RECORDS SUMMARY | 2023-11-21 00:09 | XMS_ITS | Encounter Summary ---
Author Organization [facility] Address One [facility] [place] [address] Care Team Providers Care Inventory Auditor Name Role Phone Jez Vance MD Primary Care Provider [phone] Encounter Details Date Type Department Care Team (Late st Contact Info) Description 11/20/2022 7:55 AM EDT Office Visit Radiation Oncology at [address] [phone] Toro Hayes MD [address] [place] [address] [place] [address] Malignant neoplasm of prostate Social History Tobacco [...] place to sleep or slept in a long term (including now)? No 08/06/2022 Sex and Gender Information Value Date Recorded Sex Assigned at Not on file Gender Identity Not on file Sexual Orientation Not on file documented as of this encounter Last Filed Vital Signs Vital Sign Reading Time Taken Comments Blood Pressure 152/64 11/20/2022 8:01 AM EDT Pulse 71 11/20/2022 8:01 AM EDT Temperature 36.3 ??C (97.3 ??F) 11/20/2022 8:01 AM ED T Respiratory Rate 18 11/20/2022 8:01 AM EDT Oxygen Saturation 98% 11/20/2022 8:01 AM EDT Inhaled Oxygen Concentration - - Weight 89.4 kg (197 lb) 11/20/2022 8:01 AM EDT Height - - Body Mass Index 29.08 11/05/2022 7:00 AM EDT documented in this encounter Progress Notes * Toro Hayes MD - 11/20/2022 7:55 AM EDT Images from the original note were not included. [facility] Medicine Radiation Oncology Radiation Oncology On-treatment Visit Note Patient ID Patient name: Benny Zurita Date of : 1940 Referring: Dr. Jesus Cuellar PCP: Dr. 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 GI Stools are loose. Not following LRD, or taking Imodium. Nocturia up to 5-6x nightly (stable) up from 2-3 x/nt at baseline. Taking Flomax 0.4mg qhs and he is emptying well. Takes ibuprofen around noon, Aleve occasionally aswell. No Daytime issues. Baseline IPSS history is listed below. 08/06/2022 8:27 AM Prostate Today's Scores Sexual Health Inventory for Men 23 International Prostate Symptom Score 12 (Moderate LUTS) Pain: Pain score today is 0/10. Performance Status KPS Score ECOG Grade Definition XX 90-100 0 Fully active, able to carry on all pre-disease performance without restriction 70-80 1 Restricted in physically strenuous activity but ambulatory and able to carry out work of a light or sedentary nature, e.g., light house work, office work 50-60 2 Ambulatory and capable of all selfcare but unable to carry out any work activities; up and about more than 50% of waking hours 30-40 3 Capable of only limited selfcare; confined to bed or chair more than 50% of waking hours 10-20 4 Completely disabled; cannot carry on any selfcare; totally confined to bed or chair Medications Medications 11/20/22 0806 Medication Sig Taking? tamsulosin (Flomax) 0.4 mg capsule Take 1 capsule by mouth daily. Yes simvastatin (Zocor) 10 mg tablet 20 mg nightly. Yes tadalafiL (Cialis) 5 mg tablet 5 mg. Yes losartan potassium (COZAAR ORAL) Take 50 mg by mouth 2 times daily. 50mg in am and 25mg @ HS Yes hydroCHLOROthiazide (Hydrodiuril) 25 mg tablet Take 12.5 mg by mouth daily. Indications: high bloodpressure Yes montelukast (SINGULAIR) 10 mg tablet Take 5 mg by mouth. Yes ibuprofen (ADVIL;MOTRIN) 600 mg tablet Yes Exam Patient Vitals for the past 24 hrs: Temp Pulse Resp BP SpO2 11/20/22 0801 36.3 ??C (97.3 ??F) 71 18 152/64 98 % General: Appears well, in no distress Imaging/Labs Interval setup imaging has been checked and approved. See [facility] for details. 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 Continue as planned. ADT - Next Lupron due 12/04/22 - [place] plans to go to [place] immediately after his final treatment so thiswould need to occur in [place] LUTS Rec Flomax to 0.4mg --> 0.8mg qhs and ibuprofen 400-600mg QHS PRN. Emergency ISC teaching to be provided next week, given he is driving to [place] immediately after completing RT. Followup: Return to clinic next week for on treatment check. PSA recheck at end of treatment ([facility] or [facility]) No orders of the defined types were placed in this encounter. [facility] [place] ([facility]) [facility] [employer] Commission on Cancer (ACS [place]) Accredited Cancer Program [employer] (A[employer]) Accredited Radiation Oncology Program documented in this encounter Plan of Treatment Upcoming Encounters Date Type Department Care Team (Late st Contact Info) Description 11/30/2023 9:45 AM EDT TH Visit (TeleHealth) Radiation Oncology at [address] [phone] Adrienne Singh PA [facility] DR HEMATOLOGY [place] [address] 11/30/2023 10:30 AM EDT Infusion Hematology Oncology at [address] [phone] documented as of this encounter Visit Diagnoses Diagnosis Malignant neoplasm of prostate Malignant neoplasm of prostate- Primary Androgen deprivation therapy Encounter for therapeutic drug monitoring S/P radiotherapy Convalescence following radiotherapy documented in this encounter Care Teams Inventory Auditor Relationship Specialty Start Date End Date Jez Vance MD [address] [place] [address] PCP - General 01/07/10 documented as of this encounter
--- OUTSIDE RECORDS SUMMARY | 2023-11-21 00:09 | XMS_ITS | Encounter Summary ---
Author Organization [facility] Address [facility] [place] [address] Care Team Providers Care Fruit Or Nut Farmer Name Role Phone Jez Vance MD Primary Care Provider [phone] Reason for Visit * Reason Comments Injections Lupron * Treatment/Therapy Plan Authorization (Routine) - Authorized Specialty Diagnoses / Procedures Referred By Deena yao Referred To Contact Radiation Oncology / Hematology and Oncology Diagnoses Malignant neoplasm of prostate Procedures TC LEUPROLIDE ACETATE 7.5MG, FOR DEPOST SUSPENSION (LUPRON DEPOT) [id number] LUPRON DEPOT Toro Hayes MD [address] [place] [address] [place] [address] Toro Hayes MD [address] [place] [address] [place] [address] Referral ID Status Reason Start Date Expiration Date V isits Requested Visits Authorized [id number] Authorized 11/06/2022 11/06/2023 99 99 Encounter Details Date Type Department Care Team (Late st Contact Info) Description 12/04/2022 8:30 AM EDT Infusion Hematology Oncology at [address] [phone] Malignant neoplasm of prostate Social History Tobacco [...] in a fpc (including now)? No 08/06/2022 Sex and Gender Information Value Date Recorded Sex Assigned at Not on file Gender Identity Not on file Sexual Orientation Not on file documented as of this encounter Last Filed Vital Signs Vital Sign Reading Time Taken Comments Blood Pressure 130/59 12/04/2022 8:13 AM EDT Pulse 63 12/04/2022 8:13 AM EDT Temperature 36.1 ??C (96.9 ??F) 12/04/2022 8:13 AM ED T Respiratory Rate 16 12/04/2022 8:13 AM EDT Oxygen Saturation 99% 12/04/2022 8:13 AM EDT Inhaled Oxygen Concentration - - Weight 87.2 kg (192 lb 3.2 oz) 12/04/2022 8:13 A M EDT Height 175.3 cm (5' 9.02) 12/04/2022 8:13 AM ED T Body Mass Index 28.37 12/04/2022 8:13 AM EDT documented in this encounter Progress Notes * Esther Araya RN - 12/04/2022 8:30 AM EDT Infusion Note Diagnosis: Prostate Cancer Treatment: Lupron Injection Lupron injected in RIGHT gluteal. Patient instructed on side effects of Lupron. Patient states understanding of teaching and patient aware to call clinic with any questions or concerns. Plan: Pt getting 6 month Lupron today as he is leaving for [place] for the winter. He will get next dosein May in [place] and let us know when he plans to return to our area so we can schedule him accordingly. documented in this encounter Plan of Treatment Upcoming Encounters Date Type Department Care Team (Late st Contact Info) Description 11/30/2023 9:45 AM EDT TH Visit (TeleHealth) Radiation Oncology at [address] [phone] Adrienne Singh PA [facility] [place] [address] 11/30/2023 10:30 AM EDT Infusion Hematology Oncology at [address] [phone] documented as of this encounter Visit Diagnoses Diagnosis Malignant neoplasm of prostate Malignant neoplasm of prostate- Primary Androgen deprivation therapy Encounter for therapeutic drug monitoring S/P radiotherapy Convalescence following radiotherapy documented in this encounter Administered Medications Inactive Administered Medications - up to 3 most recent administrations Medication Order MAR Action Action Date Dose Rate Site leuprolide acetate (6 month) (LUPRON DEPOT) injection 45 mg 45 mg, Intramuscular, ONCE, 1 dose, On Wed12/04/22 at 0830, Last injection site was... leuprolide IM injection site: L Gluteal (11/05/2022 8:47 AM) , Routine, This agent is restricted to outpatient use. Is this drug being given as an outpatient? Yes Given 12/04/2022 8:26 AM EDT 45 mg documented in this encounter Care Teams Fruit Or Nut Farmer Relationship Specialty Start Date End Date Genereaux, Jez H, MD [address] [place] [address] PCP - General 01/07/10 documented as of this encounter
--- OUTSIDE RECORDS SUMMARY | 2023-11-21 00:09 | XMS_ITS | Encounter Summary ---
Author Organization [facility] Address [facility] [place] [place] [address] Care Team Providers Care Wildlife Protector Name Role Phone Jez Vance MD Primary Care Provider [phone] Encounter Details Date Type Department Care Team (Late st Contact Info) Description 07/22/2023 1:00 PM EDT Office Visit Radiation Oncology at [address] [phone] Adrienne Singh PA [facility] DR [place] [address] Malignant neoplasm of prostate (Primary Dx); S/P radiotherapy; Androgen deprivation therapy; Asymptomatic menopausal state; At risk for loss of bone density Social History Tobacco Use Types Packs/Day Years [...] Sign Reading Time Taken Comments Blood Pressure 145/55 07/22/2023 12:52 PM EDT Pulse 78 07/22/2023 12:52 PM EDT Temperature 37 ??C (98.6 ??F) 07/22/2023 12: 52 PM EDT Respiratory Rate 18 07/22/2023 12:5 2 PM EDT Oxygen Saturation 98% 07/22/2023 12: 52 PM EDT Inhaled Oxygen Concentration - - Weight 90.6 kg (199 lb 12.8 oz) 024 12:52 PM EDT Height 175.3 cm (5' 9.02) 07/22/2023 1 2:52 PM EDT Body Mass Index 29.49 07/22/2023 12:52 PM EDT documented in this encounter Progress Notes * Adrienne Singh PA - 07/22/2023 1:00 PM EDT [facility] [place] [address] FOLLOW-UP: Patient: Benny Zurita : 1940 PCP: Jez Vance MD ([place]); Troy Arce MD ([place], [place]; [phone]) Urologist: Gordo Kaplan MD ([facility] [place], [place], [place]) Radiation Oncologist: Toro Hayes MD (Consult Date: 08/06/22) Chief Complaint: Follow-up for high-risk prostate cancer (Stage IIC: cT1c, cN0, cM0; Leslie 4+4, PSA 11.9) HPI: Date of Diagnosis (Biopsy): 07/06/22 Treatment Intent: Definitive (Curative) Radiation Therapy: Completion Date Treatment Site Modality Dose per Fraction (Gy) # Fractions Total Dose (Gy) 11/30/22 Prostate, Proximal SV; Pelvis VMAT 2.5; 1.8 28; 28 70; 50.4 Concurrent Therapy: LT-ADT (Leuprolide [Lupron Depot] IM, planned 18 months) Date Dose (mg) 08/13/22 7.5 09/10/22 7.5 10/08/22 7.5 11/05/22 7.5 12/04/22 45 06/11/23 45 Current treatment: Lupron (has received 16 months of coverage prior to today's appointment) Interval Symptoms Since Last Visit on 11/30/22: General: Doing well. Pain: 0/10 Fatigue/Activity Level: Spends the winter in [place], got back 3 weeks ago. Usually has some fatigue shortly after each Lupron dose. Weight/Appetite/Diet: No recent changes in appetite. Denies unintentional weight loss/gain. Respiratory: Denies SOB or cough. Cardiovascular: Denies chest pain, palpitations, calf pain/swelling, or other peripheral edema. GI: Last colonoscopy was 10 years ago, has aged our of further screening. Reports softer stools since RT. Denies N/V/D/C, melena, or hematochezia. : No acute concerns. Continues to have nocturia x 2-3, but states this is because he is a poor sleeper, and decides to urinate while he is already awake. On nights he sleeps well, he only wakes up onceto urinate. During the day he usually urinates once every 4-5 hours. Takes Flomax 0.4 mg QHS and feels like he fully empties his bladder. Did not need to self-cath s/p RT. Denies hematuria, dysuria, difficulty initiating urination, leakage, increased urgency or frequency. Endocrine: Denies hot flashes. Sexual Health: Has Cialis, but not currently taking it because it makes him dizzy in combination with the Flomax. Musculoskeletal: Denies decreased strength. Bone Health: Denies recent fracture or bone pain. Takes OTC Vitamin D and Calcium supplement. Neurological: Denies headaches, seizures, peripheral neuropathy. Mood: Denies mood swings or feeling depressed. Tobacco Use: Smoked ~8 cigarettes per day x 2 years, quit in late 1960s. Alcohol Use: 1 drink per month. Social Support: . IPSS and MARCIA (patient entered, provider reviewed), last 5 values: Prostate IPSS and MARCIA(Pt Entered): last 5 values 08/06/2022 8:27 AM 07/15/2023 10:15 AM 07/15/2023 10:17 AM Prostate Today's Scores Sexual Health Inventory for Men 23 5 (Severe ED) 2 (Severe ED) International Prostate Symptom Score 12 (Moderate LUTS) 7 ( Mild LUTS) Allergies: No Known Allergies Current Medications: Current Outpatient Medications on File Prior to Visit Medication Sig Dispense Refill tamsulosin (Flomax) 0.4 mg capsule Take 1 capsule by mouth daily. 90 tablet 3 simvastatin (Zocor) 10 mg tablet 20 mg nightly. losartan potassium (COZAAR ORAL) Take 50 mg by mouth 2 times daily. 50mg in am and 25mg @ HS hydroCHLOROthiazide (Hydrodiuril) 25 mg tablet Take 12.5 mg by mouth daily. Indications: high bloodpressure montelukast (SINGULAIR) 10 mg tablet Take 5 mg by mouth. ibuprofen (ADVIL;MOTRIN) 600 mg tablet tadalafiL (Cialis) 5 mg tablet 5 mg. No current facility-administered medications on file prior to visit. Performance Status: KPS Score ECOG Grade Definition X 90-100 0 Fully active, able to carry [...] selfcare; totally confined to bed or chair Physical Examination: Patient Vitals for the past 24 hrs: Temp Pulse Resp BP SpO2 07/22/23 1252 37 ??C (98.6 ??F) 78 18 145/55 98 % Constitutional: well-groomed, conversant. NAD. HEENT: normocephalic. PERRL, EOMI, sclerae anicteric, conjunctivae non-injected. Moist mucous membranes, no thrush or oral lesion. Neck: supple, trachea midline. No adenopathy. Respiratory: non-labored respirations with symmetrical expansion. Lungs CTA bilaterally. Cardiovascular: RRR without murmurs or gallops. No peripheral edema. Musculoskeletal: moving all extremities ad steven. JORGE. No swelling or deformity. Neurologic: alert and oriented x 3. Speech clear and coherent. Cranial nerves II-XII grossly intact. Normal gait, ambulates without assistance. Skin: warm, dry, pink, intact. Psychiatric: mood is euthymic, affect is congruent. Insight and judgement are good. Labs Reviewed This Visit: Date PSA Testosterone (250-827) Notes 09/04/20 4.7 07/22/21 6.32 03/31/22 11.892 08/13/22 Started ADT 11/30/22 Completed RT 02/12/23 < 0.008 07/01/23 < 0.02 11 CBC and CMP WNL Assessment & Plan: #Prostate cancer: - Labs reviewed from 07/01/23: CBC and CMP WNL. PSA < 0.02, undetectable. Testosterone 11, below normal as expected while on ADT. - No concerning reported symptoms or physical exam findings. - Patient last received Lupron 45 mg on 06/11/23 in [place], so his next dose is due on or shortly after 11/26/23. Patient requests that next Lupron dose be 22.5 mg to finish his planned course of treatment (18 months planned; 19 months of total coverage), will order. - Next labs (CBC, CMP, PSA, Testosterone) due before next Lupron injection. #Effects of EBRT: - Completed definitive RT to prostate, proximal SV, pelvis (see HPI) on 11/30/22. - Acute and late effects of radiation were reviewed with the patient, who currently new denies issues with the below lists. - Patient is aware that if he develops any of the late effects of radiation listed below (difficulty or changes in urine flow, blood in urine or stool) in between his regularly scheduled appointmentswith our office, then he should seek medical evaluation. Acute: LUTS (lower urinary tract symptoms) Bowel dysfunction Sexual health/Erectile Dysfunction Fatigue Mood changes Late: Changes in urinary flow/difficulty passing urine (scarring from radiation) Blood in urine: may be infection, inflammation of bladder wall (cystitis), formation of telangiectasia (small, thin blood vessels that are dilated or broken near the surface of the bladder and may bleed), or bladder/genitourinary cancer Blood in stool: may be from hemorrhoids, telangiectasia from radiation, or colorectal cancer #Survivorship: - Body weight/nutrition: recommend a well-balanced diet with adequate hydration. - Exercise: recommend at least 150 minutes of cardiovascular exercise per week, stretching twice per week, and 2 days of resistance/strength training per week. - Bone Health: baseline DXA not done prior to start of ADT, will order. To be done before next appointment. Patient already takes OTC Vitamin D/Calcium supplement. - Alcohol: recommend 1 drink per day for women, 2 drinks per day for men. - Sleep: recommend 7-8 hours per night. - Sunscreen: encourage SPF 30 or higher, and wearing protective clothing/hats while outside. - Follow with PCP on regular basis for: annual exam/health maintenance, immunizations, and cancer screenings (colonoscopy, lung cancer screening if appliable, etc). #Resources provided: none #Referrals placed: none Follow-Up: Next visit (Site Video Visit): on 11/26/23 with Lupron (has Treatment Plan for 22.5 mg dose = last injection) Labs ([facility]): PSA, Testosterone, CBC, CMP Imaging Due ([facility]): DXA scan before next appointment Benny Zurita had the opportunity to ask questions, which were answered to the best of my knowledge. Benny Zurita agreed to contact Radiation Oncology in between visits if he has any questions/concerns or new symptoms in regards to his radiation therapy/prostate cancer. Adrienne Singh PA-C Radiation Oncology documented in this encounter Plan of Treatment Upcoming Encounters Date Type Department Care Team (Late st Contact Info) Description 11/30/2023 9:45 AM EDT TH Visit (TeleHealth) Radiation Oncology at [address] [phone] Adrienne Singh PA [facility] [place] [address] 11/30/2023 10:30 AM EDT Infusion Hematology Oncology at [address] [phone] Scheduled Orders Name Type Priority Associated Diagnoses Orde r Schedule DXA Central Spine, Hip, and/or Whole Body (Generic) Imaging Routine Malignant neoplasm of prostate Androgen deprivation therapy Asymptomatic menopausal state At risk for loss of bone density Expected: 11/19/2023 (Approximate), Expires: 05/20/2024 documented as of this encounter Visit Diagnoses Diagnosis Malignant neoplasm of prostate- Primary S/P radiotherapy Convalescence following radiotherapy Androgen deprivation therapy Encounter for therapeutic drug monitoring Asymptomatic menopausal state Asymptomatic postmenopausal status (age-related) (natural) At risk for loss of bone density Other specified conditions influencing health status Malignant neoplasm of prostate- Primary Androgen deprivation therapy Encounter for therapeutic drug monitoring S/P radiotherapy Convalescence following radiotherapy documented in this encounter Care Teams Wildlife Protector Relationship Specialty Start Date End Date Jez Vance MD [address] [place] [address] PCP - General 01/07/10 documented as of this encounter
--- OUTSIDE RECORDS SUMMARY | 2023-11-21 00:09 | XMS_ITS | Encounter Summary ---
Author Organization [facility] Address [facility] [place] [address] Care Team Providers Care Central Supply Clerk Name Role Phone Jez Vance MD Primary Care Provider [phone] Encounter Details Date Type Department Care Team (Latest Contact Info) Description 10/29/2022 Travel Social History Tobacco Use Types Packs/Day [...] in a chcf (including now)? No 08/06/2022 Sex and Gender Information Value Date Recorded Sex Assigned at Not on file Gender Identity Not on file Sexual Orientation Not on file documented as of this encounter Plan of Treatment Upcoming Encounters Date Type Department Care Team (Late st Contact Info) Description 11/30/2023 9:45 AM EDT TH Visit (TeleHealth) Radiation Oncology at [address] [phone] Adrienne Singh PA [facility] [place] [address] 11/30/2023 10:30 AM EDT Infusion Hematology Oncology at [address] [phone] documented as of this encounter Visit Diagnoses Not on filedocumented in this encounter Care Teams Central Supply Clerk Relationship Specialty Start Date End Date Jez Vance MD [address] [place] [address] PCP - General 01/07/10 documented as of this encounter
--- OUTSIDE RECORDS SUMMARY | 2023-11-21 00:09 | XMS_ITS | Encounter Summary ---
Author Organization Formerly [facility] Address One [facility] [place] [address] Care Team Providers Care Developer Programmer Name Role Phone Jez Vance MD Primary Care Provider +1 [phone] Encounter Details Date Type Department Care Team (Late st Contact Info) Description 11/13/2022 7:55 AM EDT Office Visit Radiation Oncology at [address] [phone] Toro Hayes MD [address] [place] [address] [place] [address] Malignant neoplasm of prostate Social [...] in a assisted (including now)? No 08/06/2022 Sex and Gender Information Value Date Recorded Sex Assigned at Not on file Gender Identity Not on file Sexual Orientation Not on file documented as of this encounter Last Filed Vital Signs Vital Sign Reading Time Taken Comments Blood Pressure 129/49 11/13/2022 8:07 AM EDT Pulse 75 11/13/2022 8:07 AM EDT Temperature 36.5 ??C (97.7 ??F) 11/13/2022 8:07 AM ED T Respiratory Rate 16 11/13/2022 8:07 AM EDT Oxygen Saturation 97% 11/13/2022 8:07 AM EDT Inhaled Oxygen Concentration - - Weight 89 kg (196 lb 3.2 oz) 11/13/2022 8:07 AM EDT Height - - Body Mass Index 28.96 11/05/2022 7:00 AM EDT documented in this encounter Progress Notes * Gina Villafana MD - 11/13/2022 7:55 AM EDT Images from the original note were not included. [facility] Medicine Radiation Oncology Radiation Oncology On-treatment Visit [...] 50.4 Gy in 28 fractions Current Dose: 42.5 Gy in 17 fractions Interval Clinical Course General No changes since last seen. GI Stools are loose. Not following LRD, or taking Imodium. Nocturia up to 5-6x nightly up from 2-3 x/nt at baseline. Taking Flomax 0.4mg qhs and he is emptying well. Takes ibuprofen around noon. No Daytime issues. Baseline IPSS history is [...] confined to bed or chair Medications Medications 11/06/22 0816 Medication Sig Taking? tamsulosin (Flomax) 0.4 mg capsule Take 1 capsule by mouth daily. simvastatin (Zocor) 10 mg tablet 20 mg nightly. tadalafiL (Cialis) 5 mg tablet 5 mg. losartan potassium (COZAAR ORAL) Take 50 mg by mouth 2 times daily. 50mg in am and 25mg @ HS hydroCHLOROthiazide (Hydrodiuril) 25 mg tablet Take 12.5 mg by mouth daily. Indications: high bloodpressure montelukast (SINGULAIR) 10 mg tablet Take 5 mg by mouth. ibuprofen (ADVIL;MOTRIN) 600 mg tablet Exam No data found. General: Appears well, in no distress Imaging/Labs Interval setup imaging has been checked and approved. See [facility] for details. 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 Continue as planned. ADT - Next Lupron due 12/04/22 - he wants a 6 month shot at that time although will check in with us beforehand to confirm. LUTS Rec Flomax to 0.4mg qhs and ibuprofen 400-600mg QHS PRN. Followup: Return to clinic next week for on treatment check. PSA recheck at end of treatment ([facility] or [facility]) No orders of the defined types were placed in this encounter. [facility] [place] ([facility]) [facility] [employer] on Cancer (ACS [place]) Accredited Cancer Program [employer] (A[employer]) Accredited Radiation Oncology Program I have seen the patient in person, reviewed and edited the resident's above history and I agree with the details as written. The assessment and plan were formulated in discussion with me and I agree with them as documented. Toro Hayes MD, MS Captain Waiter/Waitress Radiation Oncology documented in this encounter Plan of Treatment Upcoming Encounters Date Type Department Care Team (Late st Contact Info) Description 11/30/2023 9:45 AM EDT TH Visit (TeleHealth) Radiation Oncology at [address] [phone] Adrienne Singh PA [facility] DR HEMATOLOGY [place] [address] 11/30/2023 10:30 AM EDT Infusion Hematology Oncology at [address] [phone] documented as of this encounter Visit Diagnoses Diagnosis Malignant neoplasm of prostate Malignant neoplasm of prostate- Primary Androgen deprivation therapy Encounter for therapeutic drug monitoring S/P radiotherapy Convalescence following radiotherapy documented in this encounter Care Teams Developer Programmer Relationship Specialty Start Date End Date Jez Vance MD [address] [place] [address] PCP - General 01/07/10 documented as of this encounter
--- OUTSIDE RECORDS SUMMARY | 2023-11-21 00:09 | XMS_ITS | Encounter Summary ---
Author Organization [facility] Address One [facility] [place] [address] Care Team Providers Care Color Mixer Name Role Phone Jez Vance MD Primary Care Provider [phone] [phone] Encounter Details Date Type Department Care Team (Latest Contact Info) Description 11/12/2022 Travel Social History Tobacco Use Types Packs/Day [...] in a alf (including now)? No 08/06/2022 Sex and Gender Information Value Date Recorded Sex Assigned at Not on file Gender Identity Not on file Sexual Orientation Not on file documented as of this encounter Plan of Treatment Upcoming Encounters Date Type Department Care Team (Late st Contact Info) Description 11/30/2023 9:45 AM EDT TH Visit (TeleHealth) Radiation Oncology at [address] [phone] Adrienne Singh PA [facility] [place] [address] 11/30/2023 10:30 AM EDT Infusion Hematology Oncology at [address] [phone] documented as of this encounter Visit Diagnoses Not on filedocumented in this encounter Care Teams Color Mixer Relationship Specialty Start Date End Date Jez Vance MD [address] [place] [address] PCP - General 01/07/10 documented as of this encounter
--- OUTSIDE RECORDS SUMMARY | 2023-11-21 00:09 | XMS_ITS | Encounter Summary ---
Author Organization [facility] Address One [facility] [place] [address] Care Team Providers Care Senior Database Administrator Name Role Phone Jez Vance MD Primary Care Provider [phone] [phone] Encounter Details Date Type Department Care Team (Latest Contact Info) Description 10/23/2023 Travel Social History Tobacco Use Types Packs/Day [...] in a halfway (including now)? No 08/06/2022 DH IPV Inpatient Questions Answer Date Recorded [...] TH Visit (TeleHealth) Radiation Oncology at [address] [phone] Adrienne Singh PA [facility] DR [place] [address] 11/30/2023 10:30 AM EDT Infusion Hematology Oncology at [address] [phone] documented as of this encounter Visit Diagnoses Not on filedocumented in this encounter Care Teams Senior Database Administrator Relationship Specialty Start Date End Date Jez Vance MD [address] [place] [address] PCP - General 01/07/10 documented as of this encounter
--- OUTSIDE RECORDS SUMMARY | 2023-11-21 00:09 | XMS_ITS | Encounter Summary ---
Author Organization [facility] Address One [facility] [place] [address] Care Team Providers Care In Home Aide Name Role Phone Jez Vance MD Primary Care Provider +1 [phone] Encounter Details Date Type Department Care Team (Late st Contact Info) Description 12/23/2022 Telephone Radiation Oncology at [address] [phone] Kelly Buchanan Social History Tobacco [...] a senior living (including now)? No 08/06/2022 Sex and Gender Information Value Date Recorded Sex Assigned at Not on file Gender Identity Not on file Sexual Orientation Not on file documented as of this encounter Miscellaneous Notes * Telephone Encounter - Kelly Buchanan - 12/23/2022 10:04 AM EST Benny called to cancel his TOV for End of Treatment check in. He will be unavailable and is unsure what his schedule is going to look like in the next few weeks. Benny feels that he is doing great and does not need a follow up phone call with Dr. Hayes. documented in this encounter Plan of Treatment Upcoming Encounters Date Type Department Care Team (Late st Contact Info) Description 11/30/2023 9:45 AM EDT TH Visit (TeleHealth) Radiation Oncology at [address] [phone] Adrienne Singh PA [facility] DR HEMATOLOGY [place] [address] 11/30/2023 10:30 AM EDT Infusion Hematology Oncology at [address] [phone] documented as of this encounter Visit Diagnoses Not on filedocumented in this encounter Care Teams In Home Aide Relationship Specialty Start Date End Date Jez Vance MD [address] [place] [address] PCP - General 01/07/10 documented as of this encounter
--- OUTSIDE RECORDS SUMMARY | 2023-11-21 00:09 | XMS_ITS | Encounter Summary ---
Author Organization [facility] Address One [facility] [place] [address] Care Team Providers Care School Psychology Professor Name Role Phone Jez Vance MD Primary Care Provider +1 [phone] Encounter Details Date Type Department Care Team (Latest Contact Info) Description 11/02/2022 Travel Social History Tobacco Use Types Packs/Day [...] TH Visit (TeleHealth) Radiation Oncology at [address] [phone] Adrienne Singh PA [facility] HEMATOLOGY [place] [address] 11/30/2023 10:30 AM EDT Infusion Hematology Oncology at [address] [phone] documented as of this encounter Visit Diagnoses Not on filedocumented in this encounter Care Teams School Psychology Professor Relationship Specialty Start Date End Date Jez Vance MD [address] [place] [address] PCP - General 01/07/10 documented as of this encounter
--- OUTSIDE RECORDS SUMMARY | 2023-11-21 00:09 | XMS_ITS | Encounter Summary ---
Author Organization [facility] Address [facility] [place] [address] Care Team Providers Care Coring Machine Operator Name Role Phone Jez Vance MD Primary Care Provider [phone] [phone] Reason for Visit * Reason Comments Injections * Treatment/Therapy Plan Authorization (Routine) - Closed Specialty Diagnoses / Procedures Referred By Deena yao Referred To Contact Radiation Oncology / Hematology and Oncology Diagnoses Malignant neoplasm of prostate Procedures TC LEUPROLIDE ACETATE 7.5MG, FOR DEPOST SUSPENSION (LUPRON DEPOT) [id number] LUPRON DEPOT Toro Hayes MD [address] [place] [address] DR [place] [address] Toro Hayes MD [address] [place] [address] [place] [address] Referral ID Status Reason Start Date Expiration Date Visits Re quested Visits Authorized [id number] Closed 08/06/2022 08/06/2023 1 99 Encounter Details Date Type Department Care Team (Late st Contact Info) Description 11/05/2022 8:00 AM EDT Infusion Hematology Oncology at [address] [phone] Malignant neoplasm of prostate Social History Tobacco [...] place to sleep or slept in a [place] care facility (including now)? No 08/06/2022 Sex and Gender Information Value Date Recorded Sex Assigned at Not on file Gender Identity Not on file Sexual Orientation Not on file documented as of this encounter Last Filed Vital Signs Vital Sign Reading Time Taken Comments Blood Pressure 143/56 11/05/2022 7:00 AM EDT Pulse 54 11/05/2022 7:00 AM EDT Temperature 36.2 ??C (97.1 ??F) 11/05/2022 7:00 AM ED T Respiratory Rate 18 11/05/2022 7:00 AM EDT Oxygen Saturation 99% 11/05/2022 7:00 AM EDT Inhaled Oxygen Concentration - - Weight 89.3 kg (196 lb 12.8 oz) 11/05/2022 7:00 AM EDT Height 175.3 cm (5' 9.02) 11/05/2022 7:00 AM ED T Body Mass Index 29.05 11/05/2022 7:00 AM EDT documented in this encounter Progress Notes * Belkys Gusman, RN - 11/05/2022 8:00 AM EDT Infusion Note Diagnosis: Prostate Cancer Treatment: Lupron Injection Lupron injected in left gluteal. Patient instructed on side effects of Lupron. Patient states understanding of teaching and patient aware to call clinic with any questions or concerns. Plan: Return to clinic as scheduled. documented in this encounter Plan of Treatment Upcoming Encounters Date Type Department Care Team (Late st Contact Info) Description 11/30/2023 9:45 AM EDT TH Visit (TeleHealth) Radiation Oncology at [address] [phone] Adrienne Singh PA [facility] [place] [address] 11/30/2023 10:30 AM EDT Infusion Hematology Oncology at [address] [phone] documented as of this encounter Visit Diagnoses Diagnosis Malignant neoplasm of prostate Malignant neoplasm of prostate- Primary Androgen deprivation therapy Encounter for therapeutic drug monitoring S/P radiotherapy Convalescence following radiotherapy documented in this encounter Administered Medications Inactive Administered Medications - up to 3 most recent administrations Medication Order MAR Action Action Date Dose Rate Site leuprolide (Lupron Depot) injection 7.5 mg 7.5 mg, Intramuscular, ONCE, 1 dose, On Mae 11/05/22 at 0845, Last injection site was... leuprolide IM injection site: R Gluteal (09/10/2022 9:20 AM) , STAT, This agent is restricted to outpatient use. Is this drug being given as an outpatient? Yes Given 11/05/2022 8:47 AM EDT 7.5 mg documented in this encounter Care Teams Coring Machine Operator Relationship Specialty Start Date End Date Jez Vance MD [address] [place] [address] PCP - General 01/07/10 documented as of this encounter
--- OUTSIDE RECORDS SUMMARY | 2023-11-21 00:09 | XMS_ITS | Encounter Summary ---
Author Organization [facility] Address One [facility] [place] [address] Care Team Providers Care Customer Support Assistant Name Role Phone Jez Vance MD Primary Care Provider +1 -[phone] Encounter Details Date Type Department Care Team (Late st Contact Info) Description 11/20/2022 Orders Only Radiation Oncology at [address] [phone] Toro Hayes MD [address] [place] [address] [place] [address] Social History Tobacco Use Types Packs/Day Years [...] in a jail (including now)? No 08/06/2022 Sex and Gender Information Value Date Recorded Sex Assigned at Not on file Gender Identity Not on file Sexual Orientation Not on file documented as of this encounter Plan of Treatment Upcoming Encounters Date Type Department Care Team (Late st Contact Info) Description 11/30/2023 9:45 AM EDT TH Visit (TeleHealth) Radiation Oncology at [address] [phone] Adrienne Singh PA [facility] DR [place] [address] 11/30/2023 10:30 AM EDT Infusion Hematology Oncology at [address] [phone] documented as of this encounter Visit Diagnoses Not on filedocumented in this encounter Care Teams Customer Support Assistant Relationship Specialty Start Date End Date Jez Vance MD [address] [place] [address] PCP - General 01/07/10 documented as of this encounter
--- OUTSIDE RECORDS SUMMARY | 2023-11-21 00:09 | XMS_ITS | Encounter Summary ---
Author Organization [facility] Address One [facility] [place] [address] Care Team Providers Care Stack Supervisor Name Role Phone Jez Vance MD Primary Care Provider [phone] -[phone] Encounter Details Date Type Department Care Team (Latest Contact Info) Description 11/20/2022 Travel Social History Tobacco Use Types Packs/Day [...] place to sleep or slept in a [facility] (including now)? No 08/06/2022 Sex and Gender Information Value Date Recorded Sex Assigned at Not on file Gender Identity Not on file Sexual Orientation Not on file documented as of this encounter Plan of Treatment Upcoming Encounters Date Type Department Care Team (Late st Contact Info) Description 11/30/2023 9:45 AM EDT TH Visit (TeleHealth) Radiation Oncology at [address] [phone] Adrienne Singh PA [facility] HEMATOLOGY [place] [address] 11/30/2023 10:30 AM EDT Infusion Hematology Oncology at [address] [phone] documented as of this encounter Visit Diagnoses Not on filedocumented in this encounter Care Teams Stack Supervisor Relationship Specialty Start Date End Date Jez Vance MD [address] [place] [address] PCP - General 01/07/10 documented as of this encounter
--- OUTSIDE RECORDS SUMMARY | 2023-11-21 00:09 | XMS_ITS | Encounter Summary ---
Author Organization [facility] Address One [facility] [place] [address] Care Team Providers Care Post Tensioning Ironworker Helper Name Role Phone Jez Vance MD Primary Care Provider +1 -[phone] Encounter Details Date Type Department Care Team (Latest Contact Info) Description 12/04/2022 Travel Social History Tobacco Use Types Packs/Day [...] place to sleep or slept in a long-term (including now)? No 08/06/2022 Sex and Gender Information Value Date Recorded Sex Assigned at Not on file Gender Identity Not on file Sexual Orientation Not on file documented as of this encounter Plan of Treatment Upcoming Encounters Date Type Department Care Team (Late st Contact Info) Description 11/30/2023 9:45 AM EDT TH Visit (TeleHealth) Radiation Oncology at [address] [phone] Adrienne Singh PA [facility] [place] [address] 11/30/2023 10:30 AM EDT Infusion Hematology Oncology at [address] [phone] documented as of this encounter Visit Diagnoses Not on filedocumented in this encounter Care Teams Post Tensioning Ironworker Helper Relationship Specialty Start Date End Date Jez Vance MD [address] [place] [address] PCP - General 01/07/10 documented as of this encounter
--- OUTSIDE RECORDS SUMMARY | 2023-11-21 00:09 | XMS_ITS | Encounter Summary ---
Author Organization [facility] Address One [facility] [place] [address] Care Team Providers Care Publisher Assistant Name Role Phone Jez Vance MD Primary Care Provider +1 -[phone] Encounter Details Date Type Department Care Team (Latest Contact Info) Description 11/06/2022 Travel Social History Tobacco Use Types Packs/Day [...] EDT TH Visit (TeleHealth) Radiation Oncology at [address] [phone] Adrienne Singh PA [facility] [place] [address] 11/30/2023 10:30 AM EDT Infusion Hematology Oncology at [address] [phone] documented as of this encounter Visit Diagnoses Not on filedocumented in this encounter Care Teams Publisher Assistant Relationship Specialty Start Date End Date Jez Vance MD [address] [place] [address] PCP - General 01/07/10 documented as of this encounter
--- OUTSIDE RECORDS SUMMARY | 2023-11-21 00:09 | XMS_ITS | Encounter Summary ---
[place] [address] Care Team Providers Care Equipment Operating Engineer Name Role Phone Jez Vance MD Primary Care Provider +1 -[phone] Reason for Visit * Auth/Cert (Routine) Specialty Diagnoses / Procedures Referred By Deena yao Referred To Contact Diagnoses Cholestatic liver [place] [address] [facility] Referral ID Status Reason Start Date Expiration Date Visits Re quested Visits Authorized [id number] 1 1 Encounter Details Date Type Department Care Team (Late st Contact Info) Description 10/21/2023 [place] [address] Brielle Lowry PA [address] [place] [id number] Other specified diseases of pancreas; Abnormal weight loss; Pruritus, unspecified; Unspecified abdominal pain Social History Tobacco Use Types Packs/Day Years Used Date Smoking Tobacco: Never Smokeless Tobacco: Never Alcohol Use Standard Drinks/Week Comments Yes 1 (1 standard drink = 0.6 oz pur e alcohol) social drinker once a month [facility] Utilities Answer Date Recorded In the past 12 months has [employer], gas, oil, or water company threatened to [...] place to sleep or slept in a retirement (including now)? No 08/06/2022 Housing Stability Vital [...] were you homeless or living in a retirement (including now)? No 10/25/2023 DH IPV Inpatient [...] TH Visit (TeleHealth) Radiation Oncology at [address] [phone] Adrienne Singh PA [facility] DR [place] [address] 11/30/2023 10:30 AM EDT Infusion Hematology Oncology at [address] [phone] documented as of this encounter Procedures Procedure Name Priority Date/Time Associated Diagnosis Comments CARBOHYDRATE ANTIGEN 19-9 Routine 10/21/2023 3:09 PM EDT Other specified diseases of pancreas Abnormal weight loss Pruritus, unspecified Unspecified abdominal pain documented in this encounter Results * (ABNORMAL) Carbohydrate Antigen 19-9 (10/21/2023 3:09 PM EDT) CA 19-9 79.0(H) <=35.0 units/mL 10/21/2023 10:53 PM EDT [facility] Comment:This result was gene rated using a Doreen Danis immunoassay. Results obtained from other methods or manufacturers cannot be used interchangeably with this method. Blood VENOUS BLOOD SPECIMEN / Unknown 10/21/2023 3:09 PM EDT 10/21/2023 10:27 PM EDT ISMAEL Avila CHEMISTRY ORDERAB LES [facility] [place] [address] documented in this encounter Visit Diagnoses Diagnosis Other specified diseases of pancreas Abnormal weight loss Loss of weight Pruritus, unspecified Unspecified abdominal pain Malignant neoplasm of prostate- Primary Androgen deprivation therapy Encounter for therapeutic drug monitoring S/P radiotherapy Convalescence following radiotherapy documented in this encounter Care Teams Equipment Operating Engineer Relationship Specialty Start Date End Date Jez Vance MD [address] [place] [address] PCP - General 01/07/10 documented as of this encounter
--- OUTSIDE RECORDS SUMMARY | 2023-11-21 00:09 | XMS_ITS | Encounter Summary ---
Author Organization [facility] Address One [facility] [place] [address] Care Team Providers Care Printer Slotter Helper Name Role Phone Jez Vance MD Primary Care Provider [phone] [phone] Encounter Details Date Type Department Care Team (Latest Contact Info) Description 11/10/2022 Travel Social History Tobacco Use Types Packs/Day [...] TH Visit (TeleHealth) Radiation Oncology at [address] [phone] Adrienne Singh PA [facility] HEMATOLOGY [place] [address] 11/30/2023 10:30 AM EDT Infusion Hematology Oncology at [address] [phone] documented as of this encounter Visit Diagnoses Not on filedocumented in this encounter Care Teams Printer Slotter Helper Relationship Specialty Start Date End Date Jez Vance MD [address] [place] [address] PCP - General 01/07/10 documented as of this encounter
--- OUTSIDE RECORDS SUMMARY | 2023-11-21 00:09 | XMS_ITS | Encounter Summary ---
Author Organization [facility] Address One [facility] [place] [address] Care Team Providers Care Furnace Mechanic Name Role Phone Jez Vance MD Primary Care Provider +1 [phone] Encounter Details Date Type Department Care Team (Late st Contact Info) Description 11/30/2022 8:00 AM EDT Notes Only Radiation Oncology at [address] [phone] Toro Hayes MD [address] [place] [address] [place] [address] Social History Tobacco Use Types [...] as of this encounter Progress Notes * Toro Hayes MD - 11/30/2022 8:00 AM EDT Images from the original note were not included. [facility] Medicine Radiation Oncology Radiation Therapy Completion Note Patient ID Patient name: Benny Zurita [...] fractions / 50.4 Gy in 28 fractions Start Date End Date Elapsed Days 10/22/22 11/30/22 39d Clinical Course Treatment tolerance: With regard to side effects noted during radiotherapy, the patient tolerated treatment extremely well with no significant acute (Grade 3 or above) toxicity or unplanned breaks. Treatment response: The patient's response to treatment was undetermined, as he was largely asymptomatic at the time ofpresentation. Future assessment will be determined via serial PSA measurement. Follow up plan: Follow-up phone visit with Radiation Oncology in [facility] is scheduled for 01/01/23; he has received instructions to call this office or seek the help of the local emergency room if any further problems should arise prior to followup. TORO HAYES MD 12/04/2022 National Cancer [place] (NCI) [facility] [employer] Commission on Cancer (ACS [place]) Accredited Cancer Program [employer] (ACR) Accredited Radiation Oncology Program documented in this encounter Plan of Treatment Upcoming Encounters Date Type Department Care Team (Late st Contact Info) Description 11/30/2023 9:45 AM EDT TH Visit (TeleHealth) Radiation Oncology at [address] [phone] Adrienne Singh PA [facility] DR HEMATOLOGY [place] [address] 11/30/2023 10:30 AM EDT Infusion Hematology Oncology at [address] [phone] documented as of this encounter Visit Diagnoses Not on filedocumented in this encounter Care Teams Furnace Mechanic Relationship Specialty Start Date End Date Jez Vance MD [address] [place] [address] PCP - General 01/07/10 documented as of this encounter
--- OUTSIDE RECORDS SUMMARY | 2023-11-21 00:09 | XMS_ITS | Encounter Summary ---
Author Organization [facility] Address One [facility] [place] [address] Care Team Providers Care Health Education Director Name Role Phone Jez Vance MD Primary Care Provider +1 [phone] Encounter Details Date Type Department Care Team (Latest Contact Info) Description 11/27/2022 Travel Social History Tobacco Use Types Packs/Day [...] in a custodial (including now)? No 08/06/2022 Sex and Gender Information Value Date Recorded Sex Assigned at Not on file Gender Identity Not on file Sexual Orientation Not on file documented as of this encounter Plan of Treatment Upcoming Encounters Date Type Department Care Team (Late st Contact Info) Description 11/30/2023 9:45 AM EDT TH Visit (TeleHealth) Radiation Oncology at [address] [phone] Adrienne Singh PA [facility] [place] [address] 11/30/2023 10:30 AM EDT Infusion Hematology Oncology at [address] [phone] documented as of this encounter Visit Diagnoses Not on filedocumented in this encounter Care Teams Health Education Director Relationship Specialty Start Date End Date Jez Vance MD [address] [place] [address] PCP - General 01/07/10 documented as of this encounter
--- OUTSIDE RECORDS SUMMARY | 2023-11-21 00:09 | XMS_ITS | Encounter Summary ---
Author Organization [facility] Address One [facility] [place] [address] Care Team Providers Care Target Aircraft Controller Name Role Phone Jez Vance MD Primary Care Provider +1 [phone] Encounter Details Date Type Department Care Team (Late st Contact Info) Description 11/06/2022 7:55 AM EDT Office Visit Radiation Oncology at [address] [phone] Toro Hayes MD [address] [place] [address] [place] [address] Malignant neoplasm of prostate Social [...] a care home (including now)? No 08/06/2022 Sex and Gender Information Value Date Recorded Sex Assigned at Not on file Gender Identity Not on file Sexual Orientation Not on file documented as of this encounter Last Filed Vital Signs Vital Sign Reading Time Taken Comments Blood Pressure 130/63 11/06/2022 8:16 AM EDT Pulse 66 11/06/2022 8:16 AM EDT Temperature 36.4 ??C (97.5 ??F) 11/06/2022 8:16 AM ED T Respiratory Rate 16 11/06/2022 8:16 AM EDT Oxygen Saturation 98% 11/06/2022 8:16 AM EDT Inhaled Oxygen Concentration - - Weight 89.3 kg (196 lb 12.8 oz) 11/06/2022 8:16 AM EDT Height - - Body Mass Index 29.05 11/05/2022 7:00 AM EDT documented in this encounter Progress Notes * Toro Hayes MD - 11/06/2022 7:55 AM EDT Images from the original note were not included. [facility] Medicine Radiation Oncology Radiation Oncology On-treatment Visit Note Patient ID Patient name: Benny Zurita Date of : 1940 Referring: Dr. Jesus Cuellar PCP: Dr. 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 GI Stools are loose. Not following LRD, or taking Imodium. Nocturia up to 6-7x nightly up from 2-3 x/nt at baseline. Started Flomax 0.4mg qhs last week and heis emptying better although still with double voiding. No Daytime issues. Baseline IPSS history is [...] 10 mg tablet 20 mg nightly. Yes losartan potassium (COZAAR ORAL) Take 50 mg by mouth 2 times daily. 50mg in am and 25mg @ HS Yes hydroCHLOROthiazide (Hydrodiuril) 25 mg tablet Take 12.5 mg by mouth daily. Indications: high bloodpressure Yes montelukast (SINGULAIR) 10 mg tablet Take 5 mg by mouth. Yes ibuprofen (ADVIL;MOTRIN) 600 mg tablet Yes tadalafiL (Cialis) 5 mg tablet 5 mg. Exam Patient Vitals for the past 24 hrs: Temp Pulse Resp BP SpO2 11/06/22 0816 36.4 ??C (97.5 ??F) 66 16 130/63 98 % General: Appears well, in no [...] Flomax to 0.4mg qhs and ibuprofen 400-600mg QHS. Followup: Return to clinic next week for on treatment check. PSA recheck at end of treatment ([facility] or [facility]) No orders of the defined types were placed in this encounter. National Cancer [place] (NCI) Comprehensive Cancer Center [employer] Commission on Cancer (ACS [place]) Accredited Cancer Program [employer] (ACR) Accredited Radiation Oncology Program documented in this encounter Plan of Treatment Upcoming Encounters Date Type Department Care Team (Late st Contact Info) Description 11/30/2023 9:45 AM EDT TH Visit (TeleHealth) Radiation Oncology at [address] [phone] Adrienne Singh PA [facility] DR HEMATOLOGY [place] [address] 11/30/2023 10:30 AM EDT Infusion Hematology Oncology at [address] [phone] documented as of this encounter Visit Diagnoses Diagnosis Malignant neoplasm of prostate Malignant neoplasm of prostate- Primary Androgen deprivation therapy Encounter for therapeutic drug monitoring S/P radiotherapy Convalescence following radiotherapy documented in this encounter Care Teams Target Aircraft Controller Relationship Specialty Start Date End Date Jez Vance MD [address] [place] [address] PCP - General 01/07/10 documented as of this encounter
--- OUTSIDE RECORDS SUMMARY | 2023-11-21 00:09 | XMS_ITS | Encounter Summary ---
Author Organization [facility] Address One [facility] [place] [address] Care Team Providers Care Psychological Examiner Name Role Phone Jze Vance MD Primary Care Provider +1 [phone] Encounter Details Date Type Department Care Team (Late st Contact Info) Description 11/27/2022 10:25 AM EDT Office Visit Radiation Oncology at [address] [phone] Toro Hayes MD [address] [place] [address] [place] [address] Malignant neoplasm of prostate Social [...] Sign Reading Time Taken Comments Blood Pressure 138/72 11/27/2022 10:26 AM EDT Pulse 63 11/27/2022 10:26 AM EDT Temperature 36.5 ??C (97.7 ??F) 11/27/2022 10:26 AM E DT Respiratory Rate 18 11/27/2022 10:26 AM EDT Oxygen Saturation 100% 11/27/2022 10:26 AM EDT Inhaled Oxygen Concentration - - Weight - - Height - - Body Mass Index - - documented in this encounter Progress Notes * Toro Hayes MD - 11/27/2022 10:25 AM EDT Images from the original note were not included. [facility] Medicine Radiation Oncology Radiation Oncology On-treatment [...] 50.4 Gy in 28 fractions Current Dose: 67.5 Gy in 27 fractions Interval Clinical Course General No changes since last seen. GI No diarrhea. Nocturia up to 5-6x nightly (stable) up from 2-3 x/nt at baseline. Taking Flomax 0.4mg qhs and he is emptying well. Takes ibuprofen around noon, Aleve occasionally aswell PRN but tries to avoid these given h/o PUD. No Daytime issues. Baseline IPSS history is [...] confined to bed or chair Medications Medications 11/27/22 1026 Medication Sig Taking? tamsulosin (Flomax) 0.4 mg [...] 24 hrs: Temp Pulse Resp BP SpO2 11/27/22 1026 36.5 ??C (97.7 ??F) 63 18 138/72 100 % General: Appears well, in no distress Imaging/Labs Interval setup imaging has been checked and approved. See [facility] for details. 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 Continue as planned. Completes next week. ADT - Next Lupron due 12/04/22 - he plans to go to [place] immediately after this LUTS Rec Flomax to 0.4mg --> 0.8mg qhs and ibuprofen 400-600mg QHS PRN. Emergency ISC teaching provided earlier this week, given he is driving to [place] immediately after completing RT. Followup: Phone visit in 4-6 weeks, or sooner PRN. PSA recheck in January in [place] (his urologist will arrange). He will get a Lupron in May there as well, and then notify us when he plans to come back to [place]. No orders of the defined types were placed in this encounter. National Cancer [place] (NCI) Comprehensive Cancer Center [employer] Commission on Cancer (ACS [place]) Accredited Cancer Program [employer] (ACR) Accredited Radiation Oncology Program documented in this encounter Plan of Treatment Upcoming Encounters Date Type Department Care Team (Late st Contact Info) Description 11/30/2023 9:45 AM EDT TH Visit (TeleHealth) Radiation Oncology at [address] [phone] Adrienne Singh PA [facility] DR HEMATOLOGY [place] [address] 11/30/2023 10:30 AM EDT Infusion Hematology Oncology at [address] [phone] documented as of this encounter Visit Diagnoses Diagnosis Malignant neoplasm of prostate Malignant neoplasm of prostate- Primary Androgen deprivation therapy Encounter for therapeutic drug monitoring S/P radiotherapy Convalescence following radiotherapy documented in this encounter Care Teams Psychological Examiner Relationship Specialty Start Date End Date Jez Vance MD [address] [facility] [place] [address] PCP - General 01/07/10 documented as of this encounter
--- OUTSIDE RECORDS SUMMARY | 2023-11-21 00:09 | XMS_ITS | Encounter Summary ---
Author Organization [facility] Address One [facility] [place] [address] Care Team Providers Care Laboratory Scientist Name Role Phone Jez Vance MD Primary Care Provider +1 [phone] Encounter Details Date Type Department Care Team (Latest Contact Info) Description 11/18/2022 Travel Social History Tobacco Use Types Packs/Day [...] EDT TH Visit (TeleHealth) Radiation Oncology at [address] [phone] Adrienne Singh PA [facility] [place] [address] 11/30/2023 10:30 AM EDT Infusion Hematology Oncology at [address] [phone] documented as of this encounter Visit Diagnoses Not on filedocumented in this encounter Care Teams Laboratory Scientist Relationship Specialty Start Date End Date Jez Vance MD [address] [place] [address] PCP - General 01/07/10 documented as of this encounter
--- OUTSIDE RECORDS SUMMARY | 2023-11-21 00:09 | XMS_ITS | Encounter Summary ---
Author Organization [facility] Address One [facility] [place] [address] Care Team Providers Care Test Pilot Name Role Phone Jez Vance MD Primary Care Provider +1 -[phone] Encounter Details Date Type Department Care Team (Latest Contact Info) Description 11/23/2022 Travel Social History Tobacco Use Types Packs/Day [...] EDT TH Visit (TeleHealth) Radiation Oncology at [address] [phone] Adrienne Singh PA [facility] [place] [address] 11/30/2023 10:30 AM EDT Infusion Hematology Oncology at [address] [phone] documented as of this encounter Visit Diagnoses Not on filedocumented in this encounter Care Teams Test Pilot Relationship Specialty Start Date End Date Jez Vance MD [address] [place] [address] PCP - General 01/07/10 documented as of this encounter
--- OUTSIDE RECORDS SUMMARY | 2023-11-21 00:09 | XMS_ITS | Encounter Summary ---
Author Organization [facility] Address One [facility] [place] [address] Care Team Providers Care Physician Practice Coordinator Name Role Phone Jez Vance MD Primary Care Provider +1 -[phone] Encounter Details Date Type Department Care Team (Latest Contact Info) Description 11/25/2022 Travel Social History Tobacco Use Types Packs/Day [...] a senior care (including now)? No 08/06/2022 Sex and Gender Information Value Date Recorded Sex Assigned at Not on file Gender Identity Not on file Sexual Orientation Not on file documented as of this encounter Plan of Treatment Upcoming Encounters Date Type Department Care Team (Late st Contact Info) Description 11/30/2023 9:45 AM EDT TH Visit (TeleHealth) Radiation Oncology at [address] [phone] Adrienne Singh PA [facility] [place] [address] 11/30/2023 10:30 AM EDT Infusion Hematology Oncology at [address] [phone] documented as of this encounter Visit Diagnoses Not on filedocumented in this encounter Care Teams Physician Practice Coordinator Relationship Specialty Start Date End Date Jez Vance MD [address] [place] [address] PCP - General 01/07/10 documented as of this encounter
--- OUTSIDE RECORDS SUMMARY | 2023-11-21 00:09 | XMS_ITS | Encounter Summary ---
Author Organization [facility] Address One [facility] [place] [address] Care Team Providers Care Pediatric Physiatrist Name Role Phone Jez Vance MD Primary Care Provider +1 -[phone] Encounter Details Date Type Department Care Team (Latest Contact Info) Description 11/30/2022 Travel Social History Tobacco Use Types Packs/Day [...] TH Visit (TeleHealth) Radiation Oncology at [address] [phone] Adrienne Singh PA [facility] HEMATOLOGY [place] [address] 11/30/2023 10:30 AM EDT Infusion Hematology Oncology at [address] [phone] documented as of this encounter Visit Diagnoses Not on filedocumented in this encounter Care Teams Pediatric Physiatrist Relationship Specialty Start Date End Date Jez Vance MD [address] [place] [address] PCP - General 01/07/10 documented as of this encounter
--- OUTSIDE RECORDS SUMMARY | 2023-11-21 00:09 | XMS_ITS | Encounter Summary ---
Author Organization [facility] Address One [facility] [place] [address] Care Team Providers Care Development Professional Name Role Phone Jez Vance MD Primary Care Provider +1 -[phone] Encounter Details Date Type Department Care Team (Late st Contact Info) Description 08/20/2023 Interpretation Only [address] [phone] Beba Muller, CARISSA [address] [address] Social History Tobacco Use Types Packs/Day Years [...] EDT TH Visit (TeleHealth) Radiation Oncology at [address] [phone] Adrienne Singh PA [facility] DR HEMATOLOGY [place] [address] 11/30/2023 10:30 AM EDT Infusion Hematology Oncology at [address] [phone] documented as of this encounter Procedures Procedure Name Priority Date/Time Associated Diagnosis Comments DXA CENTRAL SPINE, HIP, AND/OR WHOLE BODY (GENERIC) Routine 08/20/2023 10:14 AM EDT documented in this encounter Results * DXA Central Spine, Hip, and/or Whole Body (Generic) (08/20/2023 10:14 AM EDT) PT CLASS O RAD ADMITDTTM [id number] RAD PT RAD INFO [id number]^Unavailable ^Physician RAD EXAM DESC XDXAC^BD Bone Density DEXA Axial Skeleton^RIS [facility] WORKSTATION ID [id number] [facility] Anatomical Region Laterality Modality C-spine, Hip N/A Radiographic Katerina ging 08/20/2023 10:0 2 AM EDT Impressions 08/20/2023 1:04 PM EDT Normal. FRAX ten-year fracture risk: Major osteoporotic fracture: 6.2%. Hip fracture: 1.9%. Thank you for letting us participate in the care of this patient. ??If you are a health care provider and have any questions regarding this report, please contact the number below. ??For patients who have questions please contact the health career education teacher that requested your imaging first. ? Narrative 08/20/2023 1:04 PM EDT EXAMINATION: BD Bone Density DEXA Axial Skeleton CLINICAL HISTORY: snf (current) use of other agents affecting estrogen receptors and estrogen levels TECHNIQUE: Scans were acquired at the lumbar spine, left hip. COMPARISON: None. 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 COMPARISON: None. FINDINGS: Lowest T score at a diagnostic region of interest: T score: -0.9, JEFF:Femoral neck, WHO diagnosis: Normal IMPRESSION Normal. FRAX ten-year fracture risk: Major osteoporotic fracture: 6.2%. Hip fracture: 1.9%. Thank you for letting us participate in the care of this patient. If youare a health care provider and have any questions regarding this report,please contact the number below. For patients who have questions please contactthe health career education teacher that requested your imaging first. Unknown IMG DEXA ORDERABLES documented in this encounter Visit Diagnoses Not on filedocumented in this encounter Care Teams Development Professional Relationship Specialty Start Date End Date Jez Vance MD [address] [place] [address] PCP - General 01/07/10 documented as of this encounter
--- OUTSIDE RECORDS SUMMARY | 2023-11-21 00:09 | XMS_ITS | Encounter Summary ---
Author Organization [facility] Address One [facility] [place] [address] Care Team Providers Care Motor Inspection Mechanic Name Role Phone Jez Vance MD Primary Care Provider +1 -[phone] Encounter Details Date Type Department Care Team (Late st Contact Info) Description 11/25/2022 Notes Only Radiation Oncology at [address] [phone] Daina Montalvo, CARISSA Social History Tobacco Use Types Packs/Day Years [...] on file documented as of this encounter Patient Instructions * Attachments The following attachments cannot be sent through Care Everywhere. * Self-Catheterization: Intermittent: Male (Swazi) documented in this encounter Progress Notes * Daina Colby RN - 11/25/2022 8:22 AM EDT Self Catheterizing Instructions: Please catheterize as instructed by the nurses while you were in the clinic. Perform straight catheterization every four hours after attempting to void OR after every void as needed. Please follow instructions attached to the AVS. If you are feeling that you are voiding well and not feeling like you are unable to empty your bladder, you do not need to continue to self-cath. Call [facility] with any further questions or concerns. [phone] and ask to speak with the Rad/Onc triage nurse. After hours, weekends, and holidays: [phone] and ask for the combination welder radiation oncologist. documented in this encounter Plan of Treatment Upcoming Encounters Date Type Department Care Team (Late st Contact Info) Description 11/30/2023 9:45 AM EDT TH Visit (TeleHealth) Radiation Oncology at [address] [phone] Adrienne Singh PA [facility] DR [place] [address] 11/30/2023 10:30 AM EDT Infusion Hematology Oncology at [address] [phone] documented as of this encounter Visit Diagnoses Not on filedocumented in this encounter Care Teams Motor Inspection Mechanic Relationship Specialty Start Date End Date Jez Vance MD [address] [place] [address] PCP - General 01/07/10 documented as of this encounter
--- OUTSIDE RECORDS SUMMARY | 2023-11-21 00:09 | XMS_ITS | Encounter Summary ---
Author Organization [facility] Address One [facility] [place] [address] Care Team Providers Care Seconds Grader Name Role Phone Jez Vance MD Primary Care Provider +1 [phone] Encounter Details Date Type Department Care Team (Latest Contact Info) Description 07/22/2023 Travel Social History Tobacco Use Types Packs/Day [...] EDT TH Visit (TeleHealth) Radiation Oncology at [address] [phone] Adrienne Singh PA [facility] HEMATOLOGY [place] [address] 11/30/2023 10:30 AM EDT Infusion Hematology Oncology at [address] [phone] documented as of this encounter Visit Diagnoses Not on filedocumented in this encounter Care Teams Seconds Grader Relationship Specialty Start Date End Date Jez Vance MD [address] [place] [address] PCP - General 01/07/10 documented as of this encounter
--- OUTSIDE RECORDS SUMMARY | 2023-11-21 00:09 | XMS_ITS | Encounter Summary ---
Author Organization [facility] Address One [facility] [place] [address] Care Team Providers Care Electrical Troubleshooter Name Role Phone Jez Vance MD Primary Care Provider [phone] [phone] Encounter Details Date Type Department Care Team (Latest Contact Info) Description 11/04/2022 Travel Social History Tobacco Use Types Packs/Day [...] in a [facility] (including now)? No 08/06/2022 Sex and Gender Information Value Date Recorded Sex Assigned at Not on file Gender Identity Not on file Sexual Orientation Not on file documented as of this encounter Plan of Treatment Upcoming Encounters Date Type Department Care Team (Late st Contact Info) Description 11/30/2023 9:45 AM EDT TH Visit (TeleHealth) Radiation Oncology at [address] [phone] Adrienne Singh PA [facility] HEMATOLOGY [place] [address] 11/30/2023 10:30 AM EDT Infusion Hematology Oncology at [address] [phone] documented as of this encounter Visit Diagnoses Not on filedocumented in this encounter Care Teams Electrical Troubleshooter Relationship Specialty Start Date End Date Jez Vance MD [address] [place] [address] PCP - General 01/07/10 documented as of this encounter
--- OUTSIDE RECORDS SUMMARY | 2023-11-21 00:09 | XMS_ITS | Encounter Summary ---
Author Organization Count Includes [facility] Address One [facility] [place] [address] Care Team Providers Care Bellows Filler Name Role Phone Jez Vance MD Primary Care Provider [phone] [phone] Encounter Details Date Type Department Care Team (Late st Contact Info) Description 10/30/2022 8:55 AM EDT Office Visit Radiation Oncology at [address] [phone] Toro Hayes MD [address] [place] [address] [place] [address] Malignant neoplasm of prostate Social [...] Sign Reading Time Taken Comments Blood Pressure 131/61 10/30/2022 8:38 AM EDT Pulse 56 10/30/2022 8:38 AM EDT Temperature 36.4 ??C (97.5 ??F) 10/30/2022 8:38 AM ED T Respiratory Rate 16 10/30/2022 8:38 AM EDT Oxygen Saturation 99% 10/30/2022 8:38 AM EDT Inhaled Oxygen Concentration - - Weight - - Height - - Body Mass Index - - documented in this encounter Progress Notes * Gina Villafana MD - 10/30/2022 8:55 AM EDT Images from the original note were not included. [facility] Medicine Radiation Oncology Radiation Oncology On-treatment Visit [...] 50.4 Gy in 28 fractions Current Dose: 17.5 Gy in 7 fractions Interval Clinical Course General No changes since last seen. Started last week. GI No diarrhea. Nocturia up to 6-7x nightly up from 2-3 x/nt at baseline. No Daytime issues. Baseline IPSS history is [...] confined to bed or chair Medications Medications 10/30/22 0844 Medication Sig Taking? simvastatin (Zocor) 10 mg tablet 20 mg [...] 24 hrs: Temp Pulse Resp BP SpO2 10/30/22 0838 36.4 ??C (97.5 ??F) 56 16 131/61 99 % General: Appears well, in no distress Imaging/Labs Interval setup imaging has been checked and approved. See [employer] for details. 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 Continue as planned. ADT - Next Lupron due 11/05/22 (1 month shot). He would prefer a 6 month shot on on 12/04/22 so that[place] go to [place] for the winter. LUTS Discontinue Cialis and begin Flomax 0.4mg qhs (sent to pharmacy). NSAIDS prn. Will reassess next week. Followup: Return to clinic next week for on treatment check. PSA recheck at end of treatment ([facility] or [facility]) No orders of the defined types were placed in this encounter. [employer] (NCI) [facility] [employer] Commission on Cancer (ACS [place]) Accredited Cancer Program [employer] ([employer]) Accredited Radiation Oncology Program I have seen the patient in person, reviewed and edited the resident's above history and I agree with the details as written. The assessment and plan were formulated in discussion with me and I agree with them as documented. Pertinent History: Patient stable. Pertinent Exam: Appears well, in no distress. Major issues addressed: Assess for toxic effects of radiation therapy and whether to continue. Assessment / Plan: he is tolerating treating as expected. No significant toxicity noted other than those described above. Continue RT without changes. LUTS mgmt per above. Toro Hayes MD, MS Margarine Churn Operator Radiation Oncology documented in this encounter Plan of Treatment Upcoming Encounters Date Type Department Care Team (Late st Contact Info) Description 11/30/2023 9:45 AM EDT TH Visit (TeleHealth) Radiation Oncology at [address] [phone] Adrienne Singh PA [facility] HEMATOLOGY [place] [address] 11/30/2023 10:30 AM EDT Infusion Hematology Oncology at [address] [phone] documented as of this encounter Visit Diagnoses Diagnosis Malignant neoplasm of prostate Malignant neoplasm of prostate- Primary Androgen deprivation therapy Encounter for therapeutic drug monitoring S/P radiotherapy Convalescence following radiotherapy documented in this encounter Care Teams Bellows Filler Relationship Specialty Start Date End Date Jez Vance MD [address] [place] [address] PCP - General 01/07/10 documented as of this encounter
--- OUTSIDE RECORDS SUMMARY | 2023-11-21 00:10 | XMS_ITS | Encounter Summary ---
Author Organization [facility] Address One [facility] [place] [address] Care Team Providers Care Sky Cap Name Role Phone Jez Vance MD Primary Care Provider [phone] [phone] Encounter Details Date Type Department Care Team (Late st Contact Info) Description 09/09/2022 3:00 PM EDT Telephone Radiation Oncology at [address] [phone] Rad Nurse, [facility] [place] Social History Tobacco Use Types Packs/Day Years [...] in a penitentiary (including now)? No 08/06/2022 Sex and Gender Information Value Date Recorded Sex Assigned at Not on file Gender Identity Not on file Sexual Orientation Not on file documented as of this encounter Miscellaneous Notes * Telephone Encounter - Alanis Meyer RN - 09/14/2022 6:38 PM EDT Erroneous encounter documented in this encounter Plan of Treatment Upcoming Encounters Date Type Department Care Team (Late st Contact Info) Description 11/30/2023 9:45 AM EDT TH Visit (TeleHealth) Radiation Oncology at [address] [phone] Adrienne Singh PA [facility] DR HEMATOLOGY [place] [address] 11/30/2023 10:30 AM EDT Infusion Hematology Oncology at [address] [phone] documented as of this encounter Visit Diagnoses Not on filedocumented in this encounter Care Teams Sky Cap Relationship Specialty Start Date End Date Jez Vance MD [address] [place], [place] [id number] PCP - General 01/07/10 documented as of this encounter
--- OUTSIDE RECORDS SUMMARY | 2023-11-21 00:10 | XMS_ITS | Encounter Summary ---
Author Organization [facility] Address [facility] [place] [address] Care Team Providers Care Spar Machine Operator Name Role Phone Jez Vance MD Primary Care Provider [phone] [phone] Reason for Visit * Reason Comments Injections Lupron * Treatment/Therapy Plan Authorization (Routine) - Closed Specialty Diagnoses / Procedures Referred By Deena yao Referred To Contact Radiation Oncology / Hematology and Oncology Diagnoses Malignant neoplasm of prostate Procedures TC LEUPROLIDE ACETATE 7.5MG, FOR DEPOST SUSPENSION (LUPRON DEPOT) [id number] LUPRON DEPOT Toro Hayes MD [address] [place] [address] [place] [address] Toro Hayes MD [address] [place] [address] [place] [address] Referral ID Status Reason Start Date Expiration Date Visits Re quested Visits Authorized [id number] Closed 08/06/2022 08/06/2023 1 99 Encounter Details Date Type Department Care Team (Late st Contact Info) Description 09/10/2022 9:00 AM EDT Infusion Hematology Oncology at [address] [phone] Malignant neoplasm of prostate Social History Tobacco [...] Sign Reading Time Taken Comments Blood Pressure 141/72 09/10/2022 9:13 AM EDT Pulse 56 09/10/2022 9:13 AM EDT Temperature 36.6 ??C (97.8 ??F) 09/10/2022 9:13 AM ED T Respiratory Rate 18 09/10/2022 9:13 AM EDT Oxygen Saturation 98% 09/10/2022 9:13 AM EDT Inhaled Oxygen Concentration - - Weight 88.1 kg (194 lb 4.8 oz) 09/10/2022 9:13 A M EDT Height 175.3 cm (5' 9) 09/10/2022 9:13 AM EDT Body Mass Index 28.69 09/10/2022 9:13 AM EDT documented in this encounter Progress Notes * Esther Araya RN - 09/10/2022 9:00 AM EDT Infusion Note Diagnosis: Prostate Cancer Treatment: Lupron Injection Lupron injected in right gluteal. Patient instructed on side effects of Lupron. Patient states understanding of teaching and patient aware to call clinic with any questions or concerns. Plan: Return to clinic as scheduled. documented in this encounter Plan of Treatment Upcoming Encounters Date Type Department Care Team (Late st Contact Info) Description 11/30/2023 9:45 AM EDT TH Visit (TeleHealth) Radiation Oncology at [address] [phone] Adrienne Singh PA [facility] DR [place] [address] 11/30/2023 10:30 AM EDT Infusion Hematology Oncology at [address] [phone] documented as of this encounter Visit Diagnoses [...] mg, Intramuscular, ONCE, 1 dose, On Mae 09/10/22 at 0900, , STAT, This agent is restricted to outpatient use. Is this drug being given as an outpatient? Yes Given 09/10/2022 9:20 AM EDT 7.5 mg Ri ght Gluteal documented in this encounter Care Teams Spar Machine Operator Relationship Specialty Start Date End Date Jez Vance MD [address] [place] [address] PCP - General 01/07/10 documented as of this encounter
--- OUTSIDE RECORDS SUMMARY | 2023-11-21 00:10 | XMS_ITS | Encounter Summary ---
Author Organization [facility] Address [facility] [place] [address] Care Team Providers Care Fitness Director Name Role Phone Jez Vance MD Primary Care Provider [phone] [phone] Encounter Details Date Type Department Care Team (Late st Contact Info) Description 07/23/2022 Telephone Radiation Oncology at [address] [phone] Joanie Ma Social History Tobacco Use Types Packs/Day Years Used Date Smoking Tobacco: Never Assessed Sex and Gender Information Value Date Recorded Sex Assigned at Not on file Gender Identity Not on file Sexual Orientation Not on file documented as of this encounter Miscellaneous Notes * Telephone Encounter - Joanie Jean - 07/23/2022 11:59 AM EDT Radiation Oncology New Patient Scheduling Note I called Benny to inform him that Dr. Cuellar has referred him to see Dr. Hayes for a radiation newpatient consultation. I have confirmed his appointments on 08/06 will include a 30 minute visit at 0830 to see our clinic nurse, followed by a [address] Hayes. I have requested that he arrive 15 minutes early in order to complete paperwork. I confirmed our address and answered all of his questions, and our contact information should any further questions or concerns arise. documented in this encounter Plan of Treatment Upcoming Encounters Date Type Department Care Team (Late st Contact Info) Description 11/30/2023 9:45 AM EDT TH Visit (TeleHealth) Radiation Oncology at [address] [phone] Adrienne Singh PA [facility] HEMATOLOGY [place] [address] 11/30/2023 10:30 AM EDT Infusion Hematology Oncology at [address] [phone] documented as of this encounter Visit Diagnoses Not on filedocumented in this encounter Care Teams Fitness Director Relationship Specialty Start Date End Date Jez Vance MD [address] [place] [address] PCP - General 01/07/10 documented as of this encounter
--- OUTSIDE RECORDS SUMMARY | 2023-11-21 00:10 | XMS_ITS | Encounter Summary ---
Author Organization [facility] Address One [facility] [place] [address] Care Team Providers Care Director Of Music Name Role Phone Jez Vance MD Primary Care Provider [phone] [phone] Encounter Details Date Type Department Care Team (Latest Contact Info) Description 10/26/2022 Travel Social History Tobacco Use Types Packs/Day [...] place to sleep or slept in a skilled nursing (including now)? No 08/06/2022 Sex and Gender Information Value Date Recorded Sex Assigned at Not on file Gender Identity Not on file Sexual Orientation Not on file documented as of this encounter Plan of Treatment Upcoming Encounters Date Type Department Care Team (Late st Contact Info) Description 11/30/2023 9:45 AM EDT TH Visit (TeleHealth) Radiation Oncology at [address] [phone] Adrienne Singh PA [facility] [place] [address] 11/30/2023 10:30 AM EDT Infusion Hematology Oncology at [address] [phone] documented as of this encounter Visit Diagnoses Not on filedocumented in this encounter Care Teams Director Of Music Relationship Specialty Start Date End Date Jez Vance MD [address] [place] [address] PCP - General 01/07/10 documented as of this encounter
--- OUTSIDE RECORDS SUMMARY | 2023-11-21 00:10 | XMS_ITS | Encounter Summary ---
Author Organization [facility] Address One [facility] [place] [address] Care Team Providers Care Subassembly Supervisor Name Role Phone Jez Vance MD Primary Care Provider [phone] [phone] Encounter Details Date Type Department Care Team (Latest Contact Info) Description 09/22/2022 Travel Social History Tobacco Use Types Packs/Day [...] EDT TH Visit (TeleHealth) Radiation Oncology at [address] [phone] [facility] [place] [address] 11/30/2023 10:30 AM EDT Infusion Hematology Oncology at [address] [phone] documented as of this encounter Visit Diagnoses Not on filedocumented in this encounter Care Teams Subassembly Supervisor Relationship Specialty Start Date End Date Jez Vance MD [address] [place] [address] PCP - General 01/07/10 documented as of this encounter
--- OUTSIDE RECORDS SUMMARY | 2023-11-21 00:10 | XMS_ITS | Encounter Summary ---
Author Organization [facility] Address One [facility] [place] [address] Care Team Providers Care Nuclear Fuels Reclamation Engineer Name Role Phone Jez Vance MD Primary Care Provider [phone] [phone] Encounter Details Date Type Department Care Team (Late st Contact Info) Description 09/16/2022 12:00 PM EDT Procedure visit Radiation Oncology at [address] [phone] Toro Hayes MD [address] [place] [address] [place] [address] Malignant neoplasm of prostate Social [...] Sign Reading Time Taken Comments Blood Pressure 125/63 09/16/2022 2:06 PM EDT Pulse 58 09/16/2022 2:06 PM EDT Temperature 36.9 ??C (98.4 ??F) 09/16/2022 2:06 PM ED T Respiratory Rate 20 09/16/2022 2:06 PM EDT Oxygen Saturation 98% 09/16/2022 2:06 PM EDT Inhaled Oxygen Concentration - - Weight 88.2 kg (194 lb 8 oz) 09/16/2022 11:15 AM EDT Height - - Body Mass Index 28.72 09/10/2022 9:13 AM EDT documented in this encounter Patient Instructions * Patient Instructions* Maryjo Reina RN - 09/16/2022 12:00 PM EDT After Your Gold Coil Implantation Procedure: You may resume normal activity. You may resume intercourse in one week. You may take extra-strength Tylenol for any discomfort. Avoid NSAID's such as ibuprofen and aspirinfor 48 hours after procedure as these medications could cause bleeding. Take your dexamethasone as directed. This medication helps to control swelling. Do not take on an empty stomach. Do not take after 2-3 pm as this can cause insomnia / keep you awake. Resume your :[ Ibuprofen ] after 48 hours. Call us if you notice any unusual swelling, pain, bleeding or if you have any other concerns. A CT Simulation appointment will be at [facility] on: [ Date: 10/07/22 ] [ Arrive at: 10:30 am ] Arrive for your appointment with a comfortably full bladder. How to reach us: [phone] After Hours/Weekends- Please ask for the Radiation Oncologist to be paged documented in this encounter Progress Notes * Maryjo Reina RN - 09/16/2022 12:00 PM EDT Radiation Oncology Nurse Note [facility] [place], [place] Radiation Oncology Procedure Nursing Note Procedure: Prostate fiducial by Dr Toro Hayes and Gina Villafana Fusion Coil Lot Numbers: [ [id number] ] Time of patient arrival to clinic: 11:10 am See flowsheet for all vital signs and medication list updated info. Pre procedure questions: [N/A] If Applicable: He confirms taking lorazepam 1mg po at (time): He comes to clinic accompanied by a snaker tractor driver. [ X ] reviewed allergies. Specifically confirmed that he is not allergic to contrast dye. ( for Space Oar w/contrast) [ X ] if Applicable: He confirms holding blood thinner as directed. [ X] He confirms taking Levaquin( antibiotic) this morning at , Time: 10:35 am [ X ] He administered fleets enema as directed; last night and this AM, with good results. [ X ] He confirms eating breakfast or at least a small meal prior to procedure to avoid low blood sugar. Patient states all his questions are answered and he is ready to proceed. Procedure Time out/start time: See timeout flow sheet for details. Assessment: Patient tolerated procedure well with no complaint of pain. Time procedure ended: 1:05 pm After procedure,he was assisted to stretcher and transported to stretcher/emergency equipment bay for further monitoring. Time: 1:50 pm assisted to recliner. He denied lightheadedness. Vitals stable. Time: 2:10 pm dressed self with supervision Gait steady. >> See AVS for printed instructions which were reviewed with him. He has [place] [facility] [place] and verbalized understanding to ask for the front office developer radiation oncologist if he needs to call after clinic hours. [ N/A ] If applicable: He was reminded to not drive home due to Lorazepam. Technical Business Systems Analyst: Self Time of discharge: 2:20 pm vital signs stable,and gait steady. * Gina Villafana MD - 09/16/2022 12:00 PM EDT Identification: Benny Zurita is a 82 y.o. 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 who has consented for external beam radiotherapy. Procedure: Gold coil fiducial marker placement within the prostate for radiation localization during therapy. Physician: Toro Hayes MD & Gina Villafana MD Anesthesia: Local lidocaine with bicarbonate Description of Procedure: Benny Zurita was placed in the lithotomy position. A transrectal ultrasound probe was placed within the rectum and stabilized using the placement positioning system. The perineum was prepped, anesthetized with subcutaneous lidocaine, and draped with the graticule fixed in position on the ultrasound stabilizer. A needle was then placed trans-perineally into the right lobe of the prostate under ultrasound guidance with the graticule serving for stabilization and position verification. The ultrasound was used to monitor the advancement of the needle, and lidocaine was locally applied as the needle was advanced. Once it was properly positioned, a 0.5 cm length of gold coil was placed within the right lobe, then repeated for a 2nd coil and the needle was removed. This procedure was repeatedwithin the left prostate for a single coil. Following placement of 3 coils, the ultrasound probe and the stabilizer system were removed. The patient was then discharged. Complications: None Estimated Blood Loss: scant Disposition: Benny Zurita tolerated the treatment well. He described very minimal discomfort during the course of the procedure primarily related to placement of the rectal probe, and also with needle insertion through the perineum. He will return shortly for CT-based simulation on 10/07 and treatment planning, and a referral has been placed for the patient to undergo MRI of the prostate [place] [facility] [place]. Attending MD Attestation: I was present for the above procedure. I agree with the details as written above. Toro Hayes MD, MS Clam Shucking Machine Tender Radiation Oncology documented in this encounter Plan of Treatment Upcoming Encounters Date Type Department Care Team (Late st Contact Info) Description 11/30/2023 9:45 AM EDT TH Visit (TeleHealth) Radiation Oncology at [address] [phone] Adrienne Singh PA [facility] DR HEMATOLOGY [place] [address] 11/30/2023 10:30 AM EDT Infusion Hematology Oncology at [address] [phone] documented as of this encounter Visit Diagnoses Diagnosis Malignant neoplasm of prostate Malignant neoplasm of prostate- Primary Androgen deprivation therapy Encounter for therapeutic drug monitoring S/P radiotherapy Convalescence following radiotherapy documented in this encounter Care Teams Nuclear Fuels Reclamation Engineer Relationship Specialty Start Date End Date Jez Vance MD [address] [place] [address] PCP - General 01/07/10 documented as of this encounter
--- OUTSIDE RECORDS SUMMARY | 2023-11-21 00:10 | XMS_ITS | Encounter Summary ---
Author Organization [facility] Address One [facility] [place] [address] Care Team Providers Care Automation Control Technician Name Role Phone Jez Vance MD Primary Care Provider [phone] [phone] Encounter Details Date Type Department Care Team (Late st Contact Info) Description 10/07/2022 Notes Only Radiation Oncology at [address] [phone] Hiral Roger, CYCLE MANAGER OFFICE OF CARE MANAGEMENT Social History Tobacco Use Types Packs/Day Years [...] as of this encounter Progress Notes * Hiral Roger, CYCLE MANAGER - 10/07/2022 11:41 AM EDT Reason for Referral: Brief assessment of social and emotional needs. Met with Benny after his sim today to introduce myself and role of health care social worker to assess/address barriers to getting to and through treatments; address support needs and connect with community services and resources as needed. Family/Social Supports: Benny identified his as his primary support. They have a daughter and a son. Their daughter is [employer] [facility] [employer] [facility] and their son is in [place]. He indicated he has good supports. Living Situation/Daily Activities/Transportation: Benny manages his daily chores and activities. Heis expecting 28 RT treatments. He does not expect any issues with transportation. Work/Finances/Insurance: Benny is retired. He has Medicare and [employer] [facility] for insurance. He did not have any concerns re finances or insurance. Advance Directives: Benny has completed his advance directive. Utilization of Community Resources: None at this time. Adjustment to Illness/Mental Health Concerns: Benny shared the family is dealing with significant health issues for his son in law and 18 yr old granddaughter. He needs to be the rock for the family right now. Offered support. Identified Needs: Benny did not identify any specific needs at this time. Referrals: None at this time. Social Work Interventions: Brief assessment Supportive Counseling Plan: Informed pt of CYCLE MANAGER availability and contact information. Will follow to assess/address psychosocial needs. IZA De Paz, PORTRAIT CONSULTANT, OSW-C Lift Truck Operator [facility] documented in this encounter Plan of Treatment Upcoming Encounters Date Type Department Care Team (Late st Contact Info) Description 11/30/2023 9:45 AM EDT TH Visit (TeleHealth) Radiation Oncology at [address] [phone] Adrienne Singh PA [facility] DR HEMATOLOGY [place] [address] 11/30/2023 10:30 AM EDT Infusion Hematology Oncology at [address] [phone] documented as of this encounter Visit Diagnoses Not on filedocumented in this encounter Care Teams Automation Control Technician Relationship Specialty Start Date End Date Jez Vance MD [address] [place] [address] PCP - General 01/07/10 documented as of this encounter
--- OUTSIDE RECORDS SUMMARY | 2023-11-21 00:10 | XMS_ITS | Encounter Summary ---
Author Organization [facility] Address One [facility] [place] [address] Care Team Providers Care Salad Counter Attendant Name Role Phone Jez Vance MD Primary Care Provider [phone] [phone] Encounter Details Date Type Department Care Team (Latest Contact Info) Description 08/06/2022 Travel Social History Tobacco Use Types Packs/Day [...] TH Visit (TeleHealth) Radiation Oncology at [address] [phone] Adrienne Singh PA [facility] [place] [address] 11/30/2023 10:30 AM EDT Infusion Hematology Oncology at [address] [phone] documented as of this encounter Visit Diagnoses Not on filedocumented in this encounter Care Teams Salad Counter Attendant Relationship Specialty Start Date End Date Jez Vance MD [address] [place] [address] PCP - General 01/07/10 documented as of this encounter
--- OUTSIDE RECORDS SUMMARY | 2023-11-21 00:10 | XMS_ITS | Encounter Summary ---
Author Organization [facility] Address One [facility] [place] [address] Care Team Providers Care Frame Wirer Name Role Phone Jez Vance MD Primary Care Provider [phone] [phone] Encounter Details Date Type Department Care Team (Latest Contact Info) Description 10/22/2022 Travel Social History Tobacco Use Types Packs/Day [...] EDT TH Visit (TeleHealth) Radiation Oncology at [address] [phone] Adrienne Singh PA [facility] [place] [address] 11/30/2023 10:30 AM EDT Infusion Hematology Oncology at [address] [phone] documented as of this encounter Visit Diagnoses Not on filedocumented in this encounter Care Teams Frame Wirer Relationship Specialty Start Date End Date Jez Vance MD [address] [place] [address] PCP - General 01/07/10 documented as of this encounter
--- OUTSIDE RECORDS SUMMARY | 2023-11-21 00:10 | XMS_ITS | Encounter Summary ---
Author Organization [facility] Address One [facility] [place] [address] Care Team Providers Care Occupational Health Manager Name Role Phone Jez Vance MD Primary Care Provider [phone] [phone] Encounter Details Date Type Department Care Team (Latest Contact Info) Description 10/07/2022 Travel Social History Tobacco Use Types Packs/Day [...] EDT TH Visit (TeleHealth) Radiation Oncology at [address] [phone] Adrienne Singh PA [facility] [place]EMATOLOGY [place] [address] 11/30/2023 10:30 AM EDT Infusion Hematology Oncology at [address] [phone] documented as of this encounter Visit Diagnoses Not on filedocumented in this encounter Care Teams Occupational Health Manager Relationship Specialty Start Date End Date Jez Vance MD [address] [place] [address] PCP - General 01/07/10 documented as of this encounter
--- OUTSIDE RECORDS SUMMARY | 2023-11-21 00:10 | XMS_ITS | Encounter Summary ---
Author Organization [facility] Address One [facility] [place] [address] Care Team Providers Care Implant Coordinator Name Role Phone Jez Vance MD Primary Care Provider [phone] Encounter Details Date Type Department Care Team (Late st Contact Info) Description 09/09/2022 Refill Radiation Oncology at [address] [phone] Alanis Meyer, RN Malignant neoplasm of prostate Social History Tobacco [...] Telephone Encounter - Alanis Meyer RN - 09/09/2022 4:01 PM EDT Patient Information for Prostate Fiducial Placement. Procedure Date: 09/16/2022 Arrival Time: 11:30 Time of Procedure: 12:00 Location: [place], [place] Why Fiducial Placement or also known as ???gold coils?? ? You and your doctor have discussed treatment options and have decided that prostate fiducial placement, ???Gold coils, would be helpful in your external beam radiation treatment. The coil is a very small, 24-karat gold coil that will sit within the prostate and help to locate it on the planning CT scan. Usually 3 coils are inserted in the gland. Some patients also receive the Space Oar Implant during this procedure: WHY A SPACEOAR IMPLANT? The SpaceOAR will help avoid rectal injury during radiation treatment. The space between the prostate and the rectum can be increased by an absorbable gel spacer. The SpaceOAR System is a soft gel-like material that temporarily moves the rectum 1/2 away from the high dose radiation area protecting the rectum. It will stay in your body for three months while you are receiving your radiation treatment, and is then naturally absorbed by your body and cleared in your urine in approximately six months. THE WEEK BEFORE THE PROCEDURE: STOP TAKING BLOOD THINNERS Stop taking medications that might thin your blood(anticoagulants) 1 week before your cold coil is scheduled to be placed i.e.; aspirin, ibuprofen, gingko biloba, Coumadin, Lovenox, etc. Please ask if you are not sure about any of your medications. For you this means stop taking ibuprofen. Prescriptions to get filled: Prescription for Antibiotic: to prevent infection [ x ] Levofloxacin 500 mg 1 hour before the procedure. Prescription to help you relax (optional, if needed) [ ] Lorazepam 1 mg po 1 hour prior to procedure. Bring 2nd pill with you to procedure in case you need a repeat dose. You must have someone drive you home if you take this medication due to its sedative properties. [ x]2 fleet enemas- you will need to pick this up over the encounter. No prescription needed. Prescription for steroid: to prevent swelling at implant site. [ x ] dexamethasone: 2 mg twice a day for 3 days > Start day of procedure, once you get back home after procedure 2 mg once a day for 3 days THE DAY BEFORE THE PROCEDURE: Eat a normal dinner (evening meal) Administer one fleets enema before bedtime THE MORNING AND DAY OF THE PROCEDURE: Administer the second fleets enema (2-3 hours prior to scheduled time of procedure) Eat a normal meal and take your usual daily medications (except anticoagulants) Take antibiotic levofloxacin 1 hour prior to procedure. If ordered: take Lorazepam 1 mg, po 1 hour prior to procedure. Plan to arrive in the Radiation/Oncology Department 30 minutes before scheduled procedure. See above arrival time. You will be asked to change in to a hospital gown (remove everything from your waist down.) How is the procedure done? You will be brought into a procedure room and asked to lie on your back with your legs placed in leg supports.. After application of lidocaine lubricant, an ultrasound probe will be inserted into your rectum in order to visualize your prostate gland. After you are given a local anesthetic, the 2 needles containing the coils will be gently inserted through the skin into your prostate gland. AFTER THE GOLD COIL IMPLANT PROCEDURE: You may resume normal activity ( no bike riding, horseback riding, snowmobiling, or ATV riding for a couple days to avoid discomfort) You may resume sexual intercourse in 1 week. You may take extra-strength or regular Tylenol for any discomfort. Start dexamethasone as directed. 1 pill twice a day for 3 days, then 1 pill once a day for 3 days. Always take this medication with food. Avoid taking too late in the evening as it may causes insomnia. It may cause temporary elevation of blood sugar for diabetic patients. You may resume any NSAIDs 48 hours after the procedure. Call us if you notice any unusual swelling, difficulty with urination, pain or if you have any other concerns. Future Appointments: MRI : You will receive separate instructions specifically from the hospital concerning your exact arrival time and what you need to do to prepare for this. Date: 09/22/2022 Your planning session (simulation) will be done at : [ ] [facility] at the Radiation Oncology Department section 2K [ x ] [facility] [place], [place] [Date:10/07/2022 ] [Time: arrive at 10:30 ] For proper visualization of prostate, it is required that you have a moderately full bladder. This will require you to arrive 30 minutes before scheduled appointment and drink 2 glasses of water upon arrival. There are no restrictions with eating. How to reach us: [facility] [phone] For weekends and after hours: Call [facility] ask for the home economist radiation oncologist documented in this encounter Plan of Treatment Upcoming Encounters Date Type Department Care Team (Late st Contact Info) Description 11/30/2023 9:45 AM EDT TH Visit (TeleHealth) Radiation Oncology at [address] [phone] Adrienne Singh PA [facility] DR HEMATOLOGY [place] [address] 11/30/2023 10:30 AM EDT Infusion Hematology Oncology at [address] [phone] documented as of this encounter Visit Diagnoses Diagnosis Malignant neoplasm of prostate Malignant neoplasm of prostate- Primary Androgen deprivation therapy Encounter for therapeutic drug monitoring S/P radiotherapy Convalescence following radiotherapy documented in this encounter Care Teams Implant Coordinator Relationship Specialty Start Date End Date Jez Vance MD [address] [place] [address] PCP - General 01/07/10 documented as of this encounter
--- OUTSIDE RECORDS SUMMARY | 2023-11-21 00:10 | XMS_ITS | Encounter Summary ---
Author Organization [facility] Address One [facility] [place] [address] Care Team Providers Care Academic Counselor Name Role Phone Jez Vance MD Primary Care Provider [phone] [phone] Encounter Details Date Type Department Care Team (Latest Contact Info) Description 10/27/2022 Travel Social History Tobacco Use Types Packs/Day [...] TH Visit (TeleHealth) Radiation Oncology at [address] [phone] Adrienne Singh PA [facility] [place] [address] 11/30/2023 10:30 AM EDT Infusion Hematology Oncology at [address] [phone] documented as of this encounter Visit Diagnoses Not on filedocumented in this encounter Care Teams Academic Counselor Relationship Specialty Start Date End Date Jez Vance MD [address] [place] [address] PCP - General 01/07/10 documented as of this encounter
--- OUTSIDE RECORDS SUMMARY | 2023-11-21 00:10 | XMS_ITS | Encounter Summary ---
Author Organization [facility] Address One [facility] [place] [address] Care Team Providers Care Tester Wafer Substrate Name Role Phone Jez Vance MD Primary Care Provider [phone] [phone] Encounter Details Date Type Department Care Team (Latest Contact Info) Description 09/09/2022 Travel Social History Tobacco Use Types Packs/Day [...] TH Visit (TeleHealth) Radiation Oncology at [address] [phone] Adrienne Singh PA [facility] HEMATOLOGY [place] [address] 11/30/2023 10:30 AM EDT Infusion Hematology Oncology at [address] [phone] documented as of this encounter Visit Diagnoses Not on filedocumented in this encounter Care Teams Tester Wafer Substrate Relationship Specialty Start Date End Date Jez Vance MD [address] [place] [address] PCP - General 01/07/10 documented as of this encounter
--- OUTSIDE RECORDS SUMMARY | 2023-11-21 00:10 | XMS_ITS | Encounter Summary ---
Author Organization [facility] Address One [facility] [place] [address] Care Team Providers Care Maritime Officer Name Role Phone Jez Vance MD Primary Care Provider [phone] [phone] Encounter Details Date Type Department Care Team (Latest Contact Info) Description 09/30/2022 Travel Social History Tobacco Use Types Packs/Day [...] EDT TH Visit (TeleHealth) Radiation Oncology at [address] [phone] Adrienne Singh PA [facility] [place] [address] 11/30/2023 10:30 AM EDT Infusion Hematology Oncology at [address] [phone] documented as of this encounter Visit Diagnoses Not on filedocumented in this encounter Care Teams Maritime Officer Relationship Specialty Start Date End Date Jez Vance MD [address] [place] [address] PCP - General 01/07/10 documented as of this encounter
--- OUTSIDE RECORDS SUMMARY | 2023-11-21 00:10 | XMS_ITS | Encounter Summary ---
[place] [address] Care Team Providers Care Records Associate Name Role Phone Jez Vance MD Primary Care Provider [phone] Reason for Referral * Consultation (Routine) - Closed Specialty Diagnoses / Procedures Referred By Deena yao Referred To Contact Radiation Oncology Diagnoses Malignant neoplasm of prostate Procedures Simulation for Radiation Therapy Planning David Hayes MD [address] [place] [address] [place] [address] [facility] Onc Office [address] [place] [phone] Referral ID Status Reason Start Date Expiration Date V isits Requested Visits Authorized [id number] Closed Consult, Test & Treat 08/06/2022 08/06/2023 1 1 * Diagnostic Test (Routine) - Closed Specialty Diagnoses / Procedures Referred By Deena yao Referred To Contact Radiology Diagnoses Malignant neoplasm of prostate Procedures MRI Pelvis wo (Prostate) David Hayes MD [address] [place] [address] [place] [address] [facility] [place] [address] Referral ID Status Reason Start Date Expiration Date V isits Requested Visits Authorized [id number] Closed Specialty Service Requested 08/06/2022 02/06/2024 1 1 Reason for Visit * Consultation (Routine) - Closed Specialty Diagnoses / Procedures Referred By Contac t Referred To Contact Radiation Oncology Diagnoses Malignant neoplasm of prostate Procedures treatment options Jesus Cuellar MD [address] [place] [address] David Hayes MD [address] [place] [address] [place] [address] Referral ID Status Reason Start Date Expiration Date Visits Re quested Visits Authorized [id number] Closed 07/23/2022 07/23/2023 1 1 Encounter Details Date Type Department Care Team (Late st Contact Info) Description 08/06/2022 9:00 AM EDT Office Visit Radiation Oncology at [address] [phone] David Hayes MD [address] [place] [address] DR RADIATION ONCOLOGY [place], [place] [id number] Malignant neoplasm of prostate Social History Tobacco [...] Sign Reading Time Taken Comments Blood Pressure 129/59 08/06/2022 8:47 AM EDT Pulse 60 08/06/2022 8:47 AM EDT Temperature 36.4 ??C (97.5 ??F) 08/06/2022 8:47 AM ED T Respiratory Rate 18 08/06/2022 8:47 AM EDT Oxygen Saturation 98% 08/06/2022 8:47 AM EDT Inhaled Oxygen Concentration - - Weight 87.7 kg (193 lb 6.4 oz) 08/06/2022 8:47 A M EDT Height - - Body Mass Index - - documented in this encounter Patient Instructions * Patient Instructions* David Hayes MD - 08/06/2022 9:00 AM EDT Images from the original note were not included. Dear Dr. Polo Kerns asked for me to see you to discuss how radiation therapy can be used to treat your prostate cancer and this note is to recap our discussion regarding use of radiation treatments. As your radiation oncologist, I work closely with your other healthcare providers and most importantly, with you to make sure that the treatments we discuss and offer keep your personal preferences and goals in mind. We discussed the following next steps as part of your cancer evaluation and/or treatment: 1. The aggressiveness of your prostate cancer: You technically have high risk prostate cancer, which is a risk given to your cancer of coming back after treatment. This is based on three things 1. Your PSA (the blood test) was 11.9. PSA values below 10 are considered low risk and 10-20 are considered medium risk and above 20 are considered high risk. 2. Your highest Leslie Group score was 4 (this is how aggressive your prostate cancer looks under the microscope). Leslie scores for cancer range from 1-5, and 1 is considered lowest risk, while 5 is highest risk. 3. How aggressive your prostate cancer felt when Dr. Cuellar did the prostate exam (through the rectum) and how aggressive it appeared on the MRI, which showed no evidence of cancer outside of the prostate. The decision to treat prostate cancer is based on both the risk that the cancer can kill you and your general overall health. I agree with Dr. Cuellar's recommendation that this should be treated sincewe would otherwise expect you to live a normal length of life. 2. Radiation Treatment Options: There are a few ways radiation can be given here in [facility]. Either: 5.5 weeks of daily radiation (M-F) with external beam radiation alone 5 treatments total (given every other day Mon/Weds/Fri) of external beam radiation alone It is important to know that for higher risk prostate cancer such as yours the effectiveness of shorter courses of radiation are not as well studied. 3. Fiducial marker and SpaceOAR gel implants: If you decide to choose external beam radiation by itself, the first step will be for you to return to our clinic so that we can place small gold markers(called fiducials) into the prostate, which help us visualize the prostate on a daily basis prior to treating you with radiation. These small gold seeds are about the size of a grain of rice, and we will place one into each side of the prostate. At the same time I will also implant a gel called SpaceOAR, which involves an injection of the gel into the space between the prostate and rectum, to decrease the amount of radiation that goes to the rectum. Some early data suggests it may be helpful in reducing radiation injury to the rectum. These procedures will be performed here in our clinic, and our nursing team will provide you instructions with how to prepare yourself. It takes approximately 2 hours from when you arrive to when you leave the building. 4. Radiation Therapy and Planning: Radiation therapy involves using high energy radiation which kills cancer but also normal healthy tissues. In order to make sure the radiation goes to the canceroustissues and to also avoid radiating the normal tissues, we design radiation beams beams into special shapes which come from various different directions. Because no two people and no two cancers are completely identical, the radiation plan we create for you will be unique to you and your body. In order to figure out how many beams to use, how much radiation to give, which angles they should come from, and how they should be shaped, we have asked you to undergo 2 mapping scans: one is done here in our department known as a CT simulation, or CT sim, for short. This is essentially a CAT-scan similar to scans which you may have received before, but slightly different in a few ways: First, it allows us to place you in the exact same position which you should expect to be placed during each of your radiation treatment sessions. Second, it lets us better understand where the radiation targets and the normal tissues that we want to avoid exist, in relation to each other and the radiation beams. The second scan is a prostate MRI which will show us the position of the markers and improve our ability to see your prostate. Following these scans, we then perform additional calculations and measurements to create the absolute best plan possible for you. Depending on the complexity of the plan, these processes can take from just few hours to several days, and for that we ask for your patience. If you have any questions about the planning process or your custom radiation plan, I would be more than happy to review the plan with you during your first week of treatment. During your radiation treatments, you can expect to see me once per week so that I can examine you to make sure you are tolerating radiation treatments and so that we can monitor your response to treatment. 5. SIDE EFFECTS - Short Term: We discussed some common temporary side effects that you may experience during radiation. Common side effects may include irritative symptoms of the bladder or prostate,which can result in more frequent urination or defecation. Other common side effects mahy include weakened urinary stream or burning with urination. If you experience any of these, please let us knowso that we can help to treat them. These typically resolve within 4-6 weeks of completion radiation. 6. SIDE EFFECTS - Fdc: These can include be permanent damage of the radiated tissues, including the rectum/bowel, bladder, prostate and surrounding tissues. Potential serious injury is rare, but can include poor wound healing, bleeding, or destruction of healthy tissue that may require surgery to repair and may result in a colostomy (bag for defecation) or urostomy (bag for urination). There may be a slow, longwall headgate operator decrease in your sexual function as well, which is partly due to the aging process but also partly due to radiation side effects. This is typically responsive to medicationslike Viagra. Finally, there is a risk that radiation to your prostate increases the chance of getting another cancer caused by radiation, possibly of the prostate, bladder, rectum or surrounding tissues. This risk is overall quite low (approximately 1% above your normal risk for each 10 years you are alive), but is something to be aware of. 7. Hormone therapy: For high risk prostate cancers such as yours, I recommend a course of anti-testosterone therapy for at least 18 months (typically starting 2 months before radiation, contiuing for2 months during radiation and ongoing after radiation is completed). This is usually given as a shot that lasts for 3 months at a time. The reason we recommend this is that the male hormone testosterone is used by prostate cancer as a fuel. By decreasing the body's production of testosterone, we can 'starve' the prostate cancer. The main side effects of hormone therapy include hot flashes, night sweats, weight gain, depressed mood, loss of sexual interest and impotence. There is also a very low risk of heart attack among men who have recently had a heart attack. These side effects usually reverse within 3-6 months of stopping the hormone therapy when testosterone recovers, although it can take up to a full year. 8. Clinical Trial: We know that not all prostate cancers behave the same. To better tailor treatment, we have a clinical trial, titled NRG--009 which uses a tests your previous biopsy sample to seeif it has aggressive genetics. If it does not have aggressive genetics, you would be randomized (by coin flip) to either 1 year vs2 years of hormone therapy. If your biopsy sample does have aggressive genetics, then you would be randomized (by coin flip) toeither 2 years of hormone therapy as above or the same hormone therapy with a new oral (pill) medication called Apalutamide (the trademark name is Erleada), also for 2 years. (If you end up in this group, you would stop taking the Casodex pill described above.) Your radiation would have to be provided here in [facility] to be on this trial. Please do not hesitate to call me at [phone] with any other questions or concerns you have. IfI am not here, one of our radiation oncology nurses can assist you or help you get in touch with me. A Radiation Oncology doctor is also supervisor ornamental ironworking after our normal hours and on weekends for urgent questions or concerns related to radiation treatments that can not wait until normal business hours. To reach the on-call doctor after-hours, just call and have the electric shipyard operator page the Radiation Oncologist supervisor ornamental ironworking. And, as always, if you experience any life-threatening emergencies which any include the following,you need to seek emergency care immediately by calling 911: 1. Sudden and unexpected breathing difficulty without any exertion 2. Sudden onset of chest pain 3. Sudden onset of severe pain or uncontrolled pain 4. Sudden onset of severe weakness and/or unable to walk 5. Sudden new onset of a seizure 6. Fall resulting in injury 7. Uncontrollable bleeding Sincerely, David Hayes MD, MS Radiation Oncology documented in this encounter Progress Notes * David Hayes MD - 08/06/2022 9:00 AM EDT Images from the original note were not included. Radiation Oncology Prostate Cancer Consult Note David Hayes MD, MS [facility] [phone] PATIENT IDENTIFICATION: PATIENT NAME: Benny Zurita DATE OF : 1940 REFERRING PROVIDER: Dr Cuellar PRIMARY CARE PROVIDER: Dr Vance REASON FOR CONSULTATION : Cancer Staging Malignant neoplasm of prostate Staging form: Prostate, AJCC 8th Edition - Clinical: Stage IIC (cT1c, cN0, cM0, PSA: 11.9, Grade Group: 4) - Signed by David Hayes MD on 07/31/2022 HISTORY OF PRESENT ILLNESS: Benny Zurita is a 82 y.o. male recently diagnosed with a high-risk prostate cancer. Presenting Symptoms / Duration: ePSA Prior consultations / recommendations: Dr Cuellar - Office Note 07/21/22 - Rec ADT/XRT and baseline bone scan PSA History: 03/31/22 - 11.9 Pathology Results / Location: Dr Cuellar - TRUS bx 07/06/22 Gl 4+4 x 1 (RT) Gl 4+3 x 2 (RT) Gl 3+4 x 2 (RT) Gl 3+3 x 1 (RT) Pertinent Imaging Studies: mpMRI 06/01/22 55cc gland P5 lesion right mid/apex No ELOISA but lesion abuts capsule No SVI/LAD Bone scan 08/04/22 No metastases noted Benny is here today to discuss radiation therapy for treatment of his recently diagnosed prostate cancer. REVIEW OF SYSTEMS: 08/06/2022 8:25 AM REVIEW OF SYSTEMS Constitutional None of the above Ear / nose / throat / mouth Hearing difficulty None of the above Eyes None of the above Respiratory None of the above Cardiovascular None of the above Gastrointestinal None of the above Skin, hair None of the above Musculoskeletal Back pain Neurological None of the above Hematologic / Lymphatic None of the above Genitourinary Frequent urination Decreased urinary flow Most recent colonoscopy was 10 yrs ago (he has aged out of further screening). A comprehensive 14 point review of systems was conducted with this patient and is otherwise negative except as documented above. Baseline MARCIA and IPSS are as below: 08/06/2022 8:27 AM Prostate Scores and Responses Confidence, level - past 6 months Moderate Penetration - past 6 months Almost always or always Penetration, maintain - past 6 months Almost always or always Erection, maintain - past 6 months Not difficult Sexual satisfaction - past 6 months Almost always or always Sexual Health in Men 23 Incomplete emptying Less than half the time Frequency Less than 1 time in 5 Intermittency About half the time Urgency Not at all Weak Stream More than half the time Straining Not at all Nocturia 2 times Quality of life Mostly satisfied Total IPSS Score 12 (MODERATE LUTS) 08/06/2022 8:23 AM EPIC-PC Responses Urinary Incontinence Symptom Score 0 Urinary Irritation/Obstructive Symptom Score 5 Bowel Symptom Score 0 Sexual Symptoms Score 4 Vitality/Hormonal Symptom Score 2 Overall Prostate Cancer QOL Score 11 Bloody Stool Score 0 Urinary function problem Moderate problem Urinary control Total control # of pads used per day None Urinary dripping/leakage problem No problem Pain or burning with urination No problem Weak urine stream/incomplete bladder emptying Moderate problem Need to urinate frequently Small problem Rectal pain or urgency of bowel movements No problem Increased frequency of your bowel movements No problem Overall problems with your bowel movements No problem Bloody stools No problem Ability to reach orgasm Fair Quality of your erections Firm enough for intercourse Problem with sexual function or lack of it Small problem Hot flashes or breast tenderness/enlargement No problem Feeling depressed Very small problem Lack of energy Very small problem PAST MEDICAL HISTORY Past Medical History: Diagnosis Date HTN (hypertension) Hyperlipidemia Prostate cancer Past Surgical History: Procedure Laterality Date PROSTATE BIOPSY ROTATOR CUFF REPAIR Bilateral CONTRAINDICATIONS TO RADIATION THERAPY: None Prior radiation therapy: No Active Lupus: No Systemic Scleroderma: No MEDICATIONS / ALLERGIES: Medications 08/06/22 0908 Medication Sig Taking? 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 man diagnosed with high-risk prostate cancer (cT1c, Gl 4+4, PSA 11.9). Today we reviewed the risks, benefits, rationale, implications and alternatives of the various management options, which include radical prostatectomy, radiation therapy, and active surveillance withdelayed curative intent. Active surveillance was not reviewed in detail, given advanced histology. With regard to his radiation options, we reviewed the following: SBRT to the prostate Moderately hypofractionated RT to the prostate +/- pelvic RT Given high risk disease, SBRT was discussed but not recommended as first line treatment due to relative lack of longwall headgate operator follow-up. However given increased convenience of treatment this regimens were discussed and offered. Brachytherapy was not discussed given his age, the added morbidity and - asyet - uncertain benefits in terms of disease-specific survival endpoints. In the short term, I reviewed the common irritative bowel and bladder side effects associated with all forms of radiotherapy. In the longwall headgate operator, I explained there is an approximately 2% chance of serious bladder or rectal toxicity as well as a very low risk of inducing a secondary malignancy. I alsoreviewed that with radiation there are few reliable salvage curative options. Logistics of external beam treatment were also reviewed, including the role of fiducial marker placement with spaceOAR hydrogel placement, simulation, and treatment. I also reviewed the role of long-term ADT and side effects associated with this treatment. He understands there is an overall survival survival benefit when ADT is added to radiotherapy, including also a decreased risk for salvage therapies. We reviewed side effects which can occur, including diminished libido, hot flashes, weight gain, mood swings, depression and/or osteoporosis. Clinical trials were also reviewed briefly. He may be a candidate for [facility] - 009, a randomized study for high risk prostate cancer patients, which stratifies patients based on Decipher molecular score to either an escalated or de- escalated 2 year androgen deprivation therapy regimens. Given that hespends 1/2 of the year in [place] he has declined participation. On balance, Benny wishes to proceed with longwall headgate operator ADT and RT. Follow-up appointments will be made accordingly, including Lupron next week. Informed consent for fiducial marker placement, spaceOAR hydrogel insertion, and radiotherapy were obtained today in clinic. All of his questions were answeredto his satisfaction, and we have provided him with our contact information should any further questions or concerns arise. SUMMARY OF PLAN / RECOMMENDATION: Intent of therapy: Curative Clinical Trial Availability: Yes - NRG 009, but declined Informed consent obtained for radiotherapy to the pelvis, anticipate 28 fractions to be delivered in [facility] next week for Lupron Time Attestation: I certify spending at least 60 minutes in providing care to this patient today, 08/06/22 as reflected by the following activities: - review of his medical record in the chart, including interpretation of imaging, laboratory and pathologic studies referenced above - discussion of the above with the patient as part of shared medical decision making - documenting the outcome of today's visit as above DAVID HAYES MD, MS * Maryjo Reina RN - 08/06/2022 9:00 AM EDT RADIATION ONCOLOGY NURSING INITIAL NURSING ASSESSMENT IDENTIFICATION: Benny Zurita is a 82 y.o. year-old male with Prostate CA PRESENTING SYMPTOMS/CHIEF COMPLAINT: NPW REVIEW OF SYSTEMS: Review of Systems - Oncology 08/06/2022 8:25 AM REVIEW OF SYSTEMS Constitutional None of the above Ear / nose / throat / mouth Hearing difficulty None of the above Eyes None of the above Respiratory None of the above Cardiovascular None of the above Gastrointestinal None of the above Skin, hair None of the above Musculoskeletal Back pain Neurological None of the above Hematologic / Lymphatic None of the above Genitourinary Frequent urination Decreased urinary flow IN THE PAST 12 MONTHS HAVE YOU: Fallen more than one time? No Injured yourself as result of the fall? No Experienced difficulty with walking/problems with balance? No Do you use any assistive devices? No Any history of collagen vascular diseases:No Any Implanted Devices/Hardware: No If yes please put alert in ARIA patient summary Prior Radiotherapy: No Prior Chemotherapy: No Prior Hormone Therapy: No Other: Patient denies history of Scleroderma and Lupus LEARNING ASSESSMENT REVIEWED: N/A ADVANCED DIRECTIVE: Not discussed today. PAIN ASSESSMENT: [0] out of 10 *eD-H Adult PCS Flow Sheet if 4 or above SOCIAL ASSESSMENT: See EDH social assessment information entered. Support Systems: Angela Barriers to treatment: none Referrals/Interventions: pet crematory worker visit on day per routine. RADIATION SPECIFIC TEACHING:Will provide the following information on simulation day [facility] Radiation Therapy and You Site specific teaching : Other: PLAN: Per Answers submitted by the patient for this visit: (Submitted on 08/06/2022) Distress: 5 documented in this encounter Plan of Treatment Upcoming Encounters Date Type Department Care Team (Late st Contact Info) Description 11/30/2023 9:45 AM EDT TH Visit (TeleHealth) Radiation Oncology at [address] [phone] Adrienne Singh PA [facility] [place] [address] 11/30/2023 10:30 AM EDT Infusion Hematology Oncology at [address] [phone] Scheduled Orders Name Type Priority Associated Diagnoses Orde r Schedule Simulation for Radiation Therapy Planning Procedures Routine Malignant neoplasm of prostate Ordered: 08/06/2022 documented as of this encounter Results * MRI Pelvis wo (Prostate) (09/22/2022 4:57 PM EDT) Anatomical Region Laterality Modality Pelvis Magnetic Resonan ce Impressions 09/22/2022 9:55 PM EDT MRI for radiation treatment planning purposes. Thank you for letting us participate in the care of this patient. ??If you are a health care provider and have any questions regarding this report, please contact the number below. ??For patients who have questions please contact the health care transitions manager that requested your imaging first. ? Electronically signed by: Lalo Cristobal MD, [facility] ([phone]), at 09/22/2022 9:55 PM Narrative 09/22/2022 9:55 PM EDT EXAMINATION: MRI PELVIS WO (PROSTATE) CLINICAL HISTORY: prostate cancer s/p ADT, fiducial marker and hydrogel placement. MRI for radiation planning, please use volumetric study sequence if possible (e.g. SWANSON or the like) TECHNIQUE: MRI of the prostate without contrast. COMPARISON: None FINDINGS: The prostate measures 3.8 x 4.7 x 5.9 cm for calculated volume of 54.8 cc. No pelvic lymphadenopathy. No osseous metastases identified. Unremarkable appearance of the urinary bladder and the rectum. Procedure Note Lalo Cristobal MD - 09/22/2022 EXAMINATION: MRI PELVIS WO (PROSTATE) CLINICAL HISTORY: prostate cancer s/p ADT, fiducial marker and hydrogel placement. MRI for radiation planning, please use volumetric studysequence if possible (e.g. SWANSON or the like) TECHNIQUE: MRI of the prostate without contrast. COMPARISON: None FINDINGS: The prostate measures 3.8 x 4.7 x 5.9 cm for calculated volume of 54.8 cc.No pelvic lymphadenopathy. No osseous metastases identified. Unremarkable appearance of the urinary bladder and the rectum. IMPRESSION MRI for radiation treatment planning purposes. Thank you for letting us participate in the care of this patient. If youare a health care provider and have any questions regarding this report,please contact the number below. For patients who have questions please contactthe health care transitions manager that requested your imaging first. Electronically signed by: Lalo Cristobal MD, [facility]([phone]), at 09/22/2022 9:55 PM David Hayes MD IMG MRI ORDERABLES documented in this encounter Visit Diagnoses Diagnosis Malignant neoplasm of prostate Malignant neoplasm of prostate Malignant neoplasm of prostate- Primary Androgen deprivation therapy Encounter for therapeutic drug monitoring S/P radiotherapy Convalescence following radiotherapy documented in this encounter Care Teams Records Associate Relationship Specialty Start Date End Date Jez Vance MD [address] [place] [address] PCP - General 01/07/10 documented as of this encounter
--- OUTSIDE RECORDS SUMMARY | 2023-11-21 00:10 | XMS_ITS | Encounter Summary ---
Author Organization [facility] Address One [facility] [place] [address] Care Team Providers Care Viscose Cellar Charge Hand Name Role Phone Jez Vance MD Primary Care Provider +1 [phone] Encounter Details Date Type Department Care Team (Latest Contact Info) Description 08/12/2022 Travel Social History Tobacco Use Types Packs/Day [...] TH Visit (TeleHealth) Radiation Oncology at [address] [phone] Adrienne Singh PA [facility] [place] [address] 11/30/2023 10:30 AM EDT Infusion Hematology Oncology at [address] [phone] documented as of this encounter Visit Diagnoses Not on filedocumented in this encounter Care Teams Viscose Cellar Charge Hand Relationship Specialty Start Date End Date Jez Vance MD [address] [place] [address] PCP - General 01/07/10 documented as of this encounter
--- OUTSIDE RECORDS SUMMARY | 2023-11-21 00:10 | XMS_ITS | Encounter Summary ---
Author Organization [facility] Address One [facility] [place] [address] Care Team Providers Care Business Writer Name Role Phone Jez Vance MD Primary Care Provider [phone] [phone] Encounter Details Date Type Department Care Team (Late st Contact Info) Description 10/23/2022 8:55 AM EDT Office Visit Radiation Oncology at [address] [phone] Toro Hayes MD [address] [place] [address] [place] [address] Malignant neoplasm of prostate Social [...] Sign Reading Time Taken Comments Blood Pressure 134/59 10/23/2022 9:32 AM EDT Pulse 68 10/23/2022 9:32 AM EDT Temperature 36.6 ??C (97.9 ??F) 10/23/2022 9:32 AM ED T Respiratory Rate 18 10/23/2022 9:32 AM EDT Oxygen Saturation 98% 10/23/2022 9:32 AM EDT Inhaled Oxygen Concentration - - Weight 89.6 kg (197 lb 9.6 oz) 10/23/2022 9:32 A M EDT Height - - Body Mass Index 29.17 10/08/2022 8:22 AM EDT documented in this encounter Progress Notes * Gina Villafana MD - 10/23/2022 8:55 AM EDT Images from the original note were not included. [facility] Medicine Radiation Oncology Radiation Oncology On-treatment [...] 50.4 Gy in 28 fractions Current Dose: 5 Gy in 2 fractions Interval Clinical Course General No changes since last seen. Started this week. GI No diarrhea. Nocturia 2-3 x/nt at baseline. Baseline IPSS history is listed below. 08/06/2022 [...] confined to bed or chair Medications Medications 10/23/22 0932 Medication Sig Taking? simvastatin (Zocor) 10 mg [...] 24 hrs: Temp Pulse Resp BP SpO2 10/23/22 0932 36.6 ??C (97.9 ??F) 68 18 134/59 98 % General: Appears well, in no distress Imaging/Labs Interval setup imaging has been checked and approved. See [facility] for details. Impression/Plan Tolerance to radiotherapy/ADT: Tolerating as anticipated. Continue as planned. Next Lupron due 11/05/22 (1 month shot) He would prefer a 6 month shot on on 12/04/22 so that he can go to [place] for the winter. PSA recheck at end of treatment ([facility]) Followup: Return to clinic next week for on treatment check. No orders of the defined types were placed in this encounter. National Cancer [place] ([facility]) Comprehensive Cancer Center [employer] Commission on Cancer (ACS [place]) Accredited Cancer Program [employer] (ACR) Accredited Radiation Oncology [...] those described above. Continue RT without changes. Toro Hayes MD, MS Oral Hygienist Radiation Oncology documented in this encounter Plan of Treatment Upcoming Encounters Date Type Department Care Team (Late st Contact Info) Description 11/30/2023 9:45 AM EDT TH Visit (TeleHealth) Radiation Oncology at [address] [phone] Adrienne Singh PA [facility] [place] [address] 11/30/2023 10:30 AM EDT Infusion Hematology Oncology at [address] [phone] documented as of this encounter Visit Diagnoses Diagnosis Malignant neoplasm of prostate Malignant neoplasm of prostate- Primary Androgen deprivation therapy Encounter for therapeutic drug monitoring S/P radiotherapy Convalescence following radiotherapy documented in this encounter Care Teams Business Writer Relationship Specialty Start Date End Date Jez Vance MD [address] [place] [address] PCP - General 01/07/10 documented as of this encounter
--- OUTSIDE RECORDS SUMMARY | 2023-11-21 00:10 | XMS_ITS | Encounter Summary ---
Author Organization [facility] Address [facility] [place] [address] Care Team Providers Care Transitional Living Specialist Name Role Phone Jez Vance MD Primary Care Provider [phone] [phone] Reason for Visit * Reason Comments Injections Lupron * Treatment/Therapy Plan Authorization (Routine) - Closed Specialty Diagnoses / Procedures Referred By Deena yao Referred To Contact Radiation Oncology / Hematology and Oncology Diagnoses Malignant neoplasm of prostate Procedures TC LEUPROLIDE ACETATE 7.5MG, FOR DEPOST SUSPENSION (LUPRON DEPOT) [id number] LUPRON DEPOT Toro Hayes MD [address] [place] [address] [place] [address] Toro Hayes MD [address] [place] [address] [place] [address] Referral ID Status Reason Start Date Expiration Date Visits Re quested Visits Authorized [id number] Closed 08/06/2022 08/06/2023 1 99 Encounter Details Date Type Department Care Team (Late st Contact Info) Description 08/13/2022 8:00 AM EDT Infusion Hematology Oncology at [address] [phone] Malignant neoplasm of prostate Social History Tobacco [...] Sign Reading Time Taken Comments Blood Pressure 143/71 08/13/2022 8:15 AM EDT Pulse 66 08/13/2022 8:15 AM EDT Temperature 36.2 ??C (97.1 ??F) 08/13/2022 8:15 AM ED T Respiratory Rate 16 08/13/2022 8:15 AM EDT Oxygen Saturation 98% 08/13/2022 8:15 AM EDT Inhaled Oxygen Concentration - - Weight - - Height - - Body Mass Index - - documented in this encounter Progress Notes * Emelia Obregon RN - 08/13/2022 8:00 AM EDT Infusion Note Diagnosis:Prostate Cancer Treatment: Lupron Injection Lupron injected in left gluteal Patient instructed on side effects of Lupron. Patient states understanding of teaching, Patient aware to call clinic with any questions or concerns. Plan: Return to clinic as scheduled. documented in this encounter Plan of Treatment Upcoming Encounters Date Type Department Care Team (Late st Contact Info) Description 11/30/2023 9:45 AM EDT TH Visit (TeleHealth) Radiation Oncology at [address] [phone] Adrienne Singh PA [facility] DR HEMATOLOGY [place] [address] 11/30/2023 10:30 AM EDT Infusion Hematology Oncology at [address] [phone] documented as of this encounter Visit Diagnoses [...] mg, Intramuscular, ONCE, 1 dose, On Mae 08/13/22 at 0830, , STAT, This agent is restricted to outpatient use. Is this drug being given as an outpatient? Yes Given 08/13/2022 8:28 AM EDT 7.5 mg Le ft Gluteal documented in this encounter Care Teams Transitional Living Specialist Relationship Specialty Start Date End Date Jez Vance MD [address] [place] [address] PCP - General 01/07/10 documented as of this encounter
--- OUTSIDE RECORDS SUMMARY | 2023-11-21 00:10 | XMS_ITS | Encounter Summary ---
Author Organization [facility] Address [facility] [place] [address] Care Team Providers Care Exchange Engineer Name Role Phone Jez Vance MD Primary Care Provider [phone] [phone] Reason for Visit * Consultation (Routine) - Closed Specialty Diagnoses / Procedures Referred By Deena yao Referred To Contact Radiation Oncology Diagnoses Malignant neoplasm of prostate Procedures Simulation for Radiation Therapy Planning Toro Hayes MD [address] [place] [address] [place] [address] [facility] Rad Onc Office [address] [place] [phone] Referral ID Status Reason Start Date Expiration Date V isits Requested Visits Authorized [id number] Closed Consult, Test & Treat 08/06/2022 08/06/2023 1 1 Encounter Details Date Type Department Care Team (Latest Contact Info) Description 10/07/2022 11:00 AM EDT Ancillary Appointment Radiation Oncology at [address] [phone] Toro Hayes MD [address] [place] [address] [place] [address] Malignant neoplasm of prostate Social [...] as of this encounter Progress Notes * Gina Villafana MD - 10/07/2022 11:00 AM EDT Simulation Note for External Beam Radiation Treatment Planning [facility] Ramin Zurita is a 82 y.o. year old male with high risk (Gl 8, PSA 11.9, cT1c) prostate cancer who was simulated for definitive radiotherapy to the pelvis and prostate today. No changes were made from the plan as documented in the original simulation order and instructions. After confirming informed consent, a retrograde urethrogram was performed using a small amount of contrast dye, and then a 2.5mm slice thickness CT scan of the patient's pelvis was obtained. This scan was performed to delineate both target volumes and organs/structures at risk. These images will beused to create a customized treatment plan employing multileaf collimators and beams-eye view to treat the target to prescription dose while maximally sparing organs at risk, with the overall goal ofmaximizing the likelihood of a favorable disease response while minimizing the likelihood of any short term side effects or long-term complications of therapy. I anticipate his prescription dose will be 70 Gy to the prostate, delivered in daily 2.5 Gy fractions over the course of 5.5 weeks plus monitor and storage bin tender hormone therapy. Anticipate therapy to begin within the next 10 days. Furthermore, I anticipate this patient will require IMRT or VMAT treatment planningand delivery as the critical treatment volume of interest (in this case, pelvic lymphatics, seminalvesicles, and prostate) is/are irregular and in close proximity to sensitive structures which must be protected (including his femurs, bladder, rectum, small bowel, and penile bulb). The patient tolerated this procedure well, and was provided instructions with regard to upcoming appointments. Attending MD Attestation: I agree with the details as written above. Toro Hayes MD, MS Business Services Officer Radiation Oncology documented in this encounter Plan of Treatment Upcoming Encounters Date Type Department Care Team (Late st Contact Info) Description 11/30/2023 9:45 AM EDT TH Visit (TeleHealth) Radiation Oncology at [address] [phone] Adrienne Singh PA [facility] DR [place] [address] 11/30/2023 10:30 AM EDT Infusion Hematology Oncology at [address] [phone] Scheduled Orders Name Type Priority Associated Diagnoses Orde r Schedule Simulation for Radiation Therapy Planning Procedures Routine Malignant neoplasm of prostate Ordered: 08/06/2022 documented as of this encounter Visit Diagnoses Diagnosis Malignant neoplasm of prostate Malignant neoplasm of prostate- Primary Androgen deprivation therapy Encounter for therapeutic drug monitoring S/P radiotherapy Convalescence following radiotherapy documented in this encounter Care Teams Exchange Engineer Relationship Specialty Start Date End Date Jez Vance MD [address] [place] [address] PCP - General 01/07/10 documented as of this encounter
--- OUTSIDE RECORDS SUMMARY | 2023-11-21 00:10 | XMS_ITS | Encounter Summary ---
Author Organization [facility] Address [facility] [place] [address] Care Team Providers Care Respiratory Coordinator Name Role Phone Jez Vance MD Primary Care Provider [phone] [phone] Reason for Visit * Reason Comments Injections * Treatment/Therapy Plan Authorization (Routine) - Closed Specialty Diagnoses / Procedures Referred By Deena yao Referred To Contact Radiation Oncology / Hematology and Oncology Diagnoses Malignant neoplasm of prostate Procedures TC LEUPROLIDE ACETATE 7.5MG, FOR DEPOST SUSPENSION (LUPRON DEPOT) [id number] LUPRON DEPOT Toro Hayes MD [address] [place] [address] [place] [address] Toro Hayes MD [address] [place] [address] [place] [address] Referral ID Status Reason Start Date Expiration Date Visits Re quested Visits Authorized [id number] Closed 08/06/2022 08/06/2023 1 99 Encounter Details Date Type Department Care Team (Late st Contact Info) Description 10/08/2022 8:30 AM EDT Infusion Hematology Oncology at [address] [phone] Malignant neoplasm of prostate Social History Tobacco [...] Sign Reading Time Taken Comments Blood Pressure 141/59 10/08/2022 8:22 AM EDT Pulse 60 10/08/2022 8:22 AM EDT Temperature 36.2 ??C (97.1 ??F) 10/08/2022 8:22 AM ED T Respiratory Rate 18 10/08/2022 8:22 AM EDT Oxygen Saturation 97% 10/08/2022 8:22 AM EDT Inhaled Oxygen Concentration - - Weight 88.7 kg (195 lb 9.6 oz) 10/08/2022 8:22 A M EDT Height 175.3 cm (5' 9.02) 10/08/2022 8:22 AM ED T Body Mass Index 28.87 10/08/2022 8:22 AM EDT documented in this encounter Progress Notes * Belkys Gusman, RN - 10/08/2022 8:30 AM EDT Infusion Note Diagnosis: Prostate [...] EDT TH Visit (TeleHealth) Radiation Oncology at [address] [phone] Adrienne Singh PA [facility] DR HEMATOLOGY [place] [address] 11/30/2023 10:30 AM EDT Infusion Hematology Oncology at [address] [phone] documented as of this encounter Visit Diagnoses [...] mg, Intramuscular, ONCE, 1 dose, On Mae 10/08/22 at 0845, Last injection site was... leuprolide IM injection site: L Gluteal (08/13/2022 8:28 AM) , STAT, This agent is restricted to outpatient use. Is this drug being given as an outpatient? Yes Given 10/08/2022 8:32 AM EDT 7.5 mg documented in this encounter Care Teams Respiratory Coordinator Relationship Specialty Start Date End Date Jez Vance MD [address] [place] [address] PCP - General 01/07/10 documented as of this encounter
--- OUTSIDE RECORDS SUMMARY | 2023-11-21 00:10 | XMS_ITS | Encounter Summary ---
Author Organization [facility] Address One [facility] [place] [address] Care Team Providers Care Sheet Rocker Name Role Phone Jez Vance MD Primary Care Provider [phone] [phone] Encounter Details Date Type Department Care Team (Latest Contact Info) Description 09/15/2022 Travel Social History Tobacco Use Types Packs/Day [...] TH Visit (TeleHealth) Radiation Oncology at [address] [phone] Adrienne Singh PA [facility] HEMATOLOGY [place] [address] 11/30/2023 10:30 AM EDT Infusion Hematology Oncology at [address] [phone] documented as of this encounter Visit Diagnoses Not on filedocumented in this encounter Care Teams Sheet Rocker Relationship Specialty Start Date End Date Jez Vance MD [address] [place] [address] PCP - General 01/07/10 documented as of this encounter
--- OUTSIDE RECORDS SUMMARY | 2023-11-21 00:10 | XMS_ITS | Encounter Summary ---
Author Organization [facility] Address One [facility] [place] [address] Care Team Providers Care Chief Substation Operator Name Role Phone Jez Vance MD Primary Care Provider [phone] [phone] Encounter Details Date Type Department Care Team (Latest Contact Info) Description 10/01/2022 Travel Social History Tobacco Use Types Packs/Day [...] EDT TH Visit (TeleHealth) Radiation Oncology at [address] [phone] Adrienne Singh PA [facility] [place] [address] 11/30/2023 10:30 AM EDT Infusion Hematology Oncology at [address] [phone] documented as of this encounter Visit Diagnoses Not on filedocumented in this encounter Care Teams Chief Substation Operator Relationship Specialty Start Date End Date Jez Vance MD [address] [place] [address] PCP - General 01/07/10 documented as of this encounter
--- OUTSIDE RECORDS SUMMARY | 2023-11-21 00:10 | XMS_ITS | Encounter Summary ---
[place] [address] Care Team Providers Care Pricing Strategist Name Role Phone Jez Vance MD Primary Care Provider [phone] [phone] Reason for Referral * Diagnostic Test (Routine) - Closed Specialty Diagnoses / Procedures Referred By Contac t Referred To Contact Radiology Diagnoses Malignant neoplasm of prostate Procedures MRI Pelvis wo (Prostate) Toro Hayes MD [address] [place] [address] [place] [address] [place] [address] Referral ID Status Reason Start Date Expiration Date V isits Requested Visits Authorized [id number] Closed Specialty Service Requested 08/06/2022 02/06/2024 1 1 Reason for Visit * Diagnostic Test (Routine) - Closed Specialty Diagnoses / Procedures Referred By Contac t Referred To Contact Radiology Diagnoses Malignant neoplasm of prostate Procedures MRI Pelvis wo (Prostate) Toro Hayes MD [address] [place] [address] [place] [address] [place] [address] Referral ID Status Reason Start Date Expiration Date V isits Requested Visits Authorized [id number] Closed Specialty Service Requested 08/06/2022 02/06/2024 1 1 Encounter Details Date Type Department Care Team (Latest Contact Info) Description 09/22/2022 2:56 PM EDT - 09/22/2022 11:59 PM EDT Hospital Encounter MRI at [facility] [place] [address] Toro Hayes MD [address] [place] [address] [place] [address] Malignant neoplasm of prostate Discharge Disposition: Home [...] Sig Dispensed Refills Start Date End Date simvastatin (Zocor) 10 mg tablet Take 20 mg by mouth daily. losartan potassium (COZAAR ORAL) Take 50 mg by mouth nightly. montelukast (SINGULAIR) 10 mg tablet Take 5 mg by mouth nightly. 09/02/2005 ibuprofen (ADVIL;MOTRIN) 600 mg tablet Take 600 mg by mouth every 8 hours as needed for Pain. 09/02/2005 levoFLOXacin (Levaquin) 500 mg tabletIndications:Candace lugo neoplasm of prostate Take 1 hour before procedure 1 tablet 09/10/2022 10/23/2022 dexAMETHasone (Decadron) 2 mg tabletIndications:Malig nant neoplasm of prostate Start taking day of procedure after you get home- 2 mg twice a day for 3 days with food then 2 mg once a day for 3 days with food. 9 tablet 09/10/2022 10/23/2022 tadalafiL (Cialis) 5 mg tablet Take 5 mg by mouth as needed. 04/05/2022 10/23/2023 hydroCHLOROthiazide (Hydrodiuril) 25 mg tabletIndications:hyper tension Take 25 mg by mouth daily. Indications: high blood pressure 10/27/2023 documented as of this encounter Plan of Treatment Upcoming Encounters Date Type Department Care Team (Late st Contact Info) Description 11/30/2023 9:45 AM EDT TH Visit (TeleHealth) Radiation Oncology at [address] [phone] Adrienne Singh PA [facility] DR HEMATOLOGY [place] [address] 11/30/2023 10:30 AM EDT Infusion Hematology Oncology at [address] [phone] documented as of this encounter Procedures Procedure Name Priority Date/Time Associated Diagnosis Comments MRI PELVIS WO (PROSTATE) Routine 09/22/2022 4:57 PM EDT Malignant neoplasm of prostate documented in this encounter Results * MRI Pelvis wo [...] have questions please contact the health career representative that requested your imaging first. ? Electronically signed by: Lalo Cristobal MD, [facility] ([phone]), at 09/22/2022 9:55 PM Narrative 09/22/2022 9:55 [...] who have questions please contactthe health career representative that requested your imaging first. Electronically signed by: Lalo Cristobal MD, [facility]([phone]), at 09/22/2022 9:55 PM Toro Hayes MD [facility] MRI ORDERABLES documented in this encounter Visit Diagnoses Diagnosis Malignant neoplasm of prostate Malignant neoplasm of prostate- Primary Androgen deprivation therapy Encounter for therapeutic drug monitoring S/P radiotherapy Convalescence following radiotherapy documented in this encounter Care Teams Pricing Strategist Relationship Specialty Start Date End Date Jez Vance MD [address] [place] [address] PCP - General 01/07/10 documented as of this encounter
[2023-12-05] MEDS: Normal Saline Flush 10 ML SYR IVP (11:25)
== END 2023-12-16 23:59 | disposition home or self-care (01) ==
LOC: INF 03:47
PROVIDERS: PCP Family Medicine; Visit Provider Internal Medicine Hematology & Oncology
DX: Z45.2 Encounter for adjustment and management of vascular access device
CPT/HCPCS: 96523

== ENCOUNTER 2024-01-01 00:22 | Outpatient (RCR) | payer MEDICARE, OTHER, SELFPAY ==
[2023-12-19] MEDS: Normal Saline Flush 10 ML SYR IVP (11:54)
[2024-01-01] MEDS: Normal Saline Flush 10 ML SYR IVP (13:36)
== END 2024-01-15 23:59 | disposition home or self-care (01) ==
LOC: INF 00:22
PROVIDERS: PCP Family Medicine; Visit Provider Internal Medicine Hematology & Oncology
DX: Z45.2 Encounter for adjustment and management of vascular access device (principal)
CPT/HCPCS: 36591; 80053; 96523; 85025; 86301

== ENCOUNTER 2024-01-14 01:08 | Outpatient (RCR) | payer MEDICARE, OTHER, SELFPAY ==
--- OUTSIDE RECORDS SUMMARY | 2023-12-17 01:44 | XMS_ITS ---
Author Organization [facility] Address [address] [place] [id number] Care Team Providers Care Senior Pensions Administrator Name Role Phone Rajiv MERCEDES, Jez Primary Care Provider Results Component Value Reference Range Notes CMP Reviewed date:11/23/2023 10:09:21 AM Interpretation: Performing Lab:NL[facility], [facility] [id number] [place], [place] [address] Jocelyn Muniz M.D. Notes/Report: Received Date: NON-FASTING [...] Reviewed date:11/23/2023 10:09:35 AM Interpretation: Performing Lab:[facility] [address] Jocelyn Muniz M.D. Notes/Report: Received Date: NON-FASTING NON-FASTING NON-FASTING NON-FASTING NON-FASTING PSA, POST PROSTATECTOMY <0.02 PSA values obtained with different assay methods or kits cannot be used interchangeably. This test was performed using the Space Pencil DxI method. PSA, ICMA is not to [...] Reviewed date:11/23/2023 10:09:41 AM Interpretation: Performing Lab:[facility] [address] Jocelyn Muniz M.D. Notes/Report: Received Date: [id number] NON-FASTING NON-FASTING NON-FASTING NON-FASTING NON-FASTING CA 19-9 181 <34 U/mL This test was performed using the Siemens chemiluminescent method. Values obtained from different assay methods cannot be used interchangeably. CA 19-9 levels, regardless of value, should not be interpreted as absolute evidence of the presence or absence of disease. CBC WITH DIFF Reviewed date:11/23/2023 10:09:54 AM Interpretation: Performing Lab:[facility] [address] Jocelyn Muniz M.D. Notes/Report: Received Date: [...] MPV 11.4 7.5-12.5 fL ABSOLUTE NEUTROPHILS 3595 1159-3130 cells/uL ABSOLUTE LYMPHOCYTES 196 668-3283 cells/uL ABSOLUTE MONOCYTES 250 200-950 cells/uL ABSOLUTE EOSINOPHILS 270 15-500 cells/uL ABSOLUTE BASOPHILS 30 0-200 cells/uL NEUTROPHILS 71.9 LYMPHOCYTES 17.1 MONOCYTES 5.0 EOSINOPHILS 5.4 BASOPHILS 0.6 TESTOSTERONE TOTAL SERUM Reviewed date:11/23/2023 10:09:28 AM Interpretation: Performing Lab:[facility], [facility] [address] Jocelyn Muniz M.D. Notes/Report: Received Date: NON-FASTING NON-FASTING NON-FASTING NON-FASTING NON-FASTING TESTOSTERONE, TOTAL, MALES (ADULT), IA <10 250-827 ng/dL In hypogonadal males, Testosterone, Total, LC/MS/MS, is the recommended assay due to the diminished accuracy of immunoassay at levels below 250 ng/dL. This test code (23398) must be collected in a red-top tube with no gel. REASON FOR VISIT Labs for Oncology- CBC, CMP, Total Testosterone, PSA Ultra Sensitive, CA 19 Social History Sex Assigned At : Social History Observation Description Sex Assigned At Male Encounters Encounter Location Date Provider Diagnosis [address] [phone] 11/17/2023 Jez Vance MD Prostate CA C61 and nursing home (current) use of other agents affecting estrogen receptors and estrogen levels Z79.818 Assessments Encounter Date Diagnosis (ICD Code) Assessment Notes Treatment Notes Treatment Clinical Notes 11/17/2023 Prostate CA (ICD-10 - C61) 11/17/2023 nursing home (current) use of other agents affecting estrogen receptors and estrogen levels (ICD-10 - Z79.818) 11/17/2023 Other Left ac venipun cture done with 23 g needle. Successful first attempt. Pt tolerated it well. Bandaid applied Lab sent to [facility]. CARISSA Ftizpatrick Plan Of Treatment Treatment Notes Assessment Notes Other Left ac venipuncture done with 23 g needle. Successful first attempt. Pt tolerated it well. Bandaid applied Lab sent to [facility]. CARISSA Fitzpatrick Progress Notes * [place] SHAWOB:1940 (83 yo M)Acc No.[id number]:11/17/2023 Progress Note Patient:?Benny SHAW Provider:?Jez Vance M.D. :1940???Age:83 Y???Sex:Male Omari e:11/17/2023 Address:[address], [id number] Subjective: * Chief Complaints: * ???1. Labs for Oncology- CBC , CMP, Total Testosterone, PSA Ultra Sensitive, CA 19. * Medical History:? Objective: * Vitals:? Assessment: * Assessment: 1.?Prostate CA - C61 (Primar y)???2.?nursing home (current) use of other agents affecting estrogen receptors and estrogen levels - Z79.818??? Plan: * Treatment: 2.?intermediate accountant (current) use o f other agents affecting [...] it well. Bandaid applied Lab sent to [facility]. CARISSA Fitzpatrick?? * * Sign off status: Completed true * Provider:?Jez Vance M.D. Omari e:?11/17/2023 Generated for Jovanna dejesus/Allyson/Rosioitting on:?12/17/2023 01:41 AM EDT
--- OUTSIDE RECORDS SUMMARY | 2023-12-17 01:44 | XMS_ITS | Continuity of Care Document ---
Author Organization [facility] Address [address] [place] [id number] Care Team Providers Care Trackless Trolley Driver Name Role Phone Jez Vance Primary Care Physician [phone] Encounter [facility] [id number] Date(s): 10/21/23 - 10/21/[address] [address]- Encounter Diagnosis Pancreatic mass(Discharge Diagnosis) - 10/21/23 Weight loss(Discharge Diagnosis) - 10/21/23 Pruritic condition(Discharge Diagnosis) - 10/21/23 Abdominal pain(Discharge Diagnosis) - 10/21/23 Hypokalemia(Discharge Diagnosis) - 10/21/23 Elevated liver enzymes(Discharge Diagnosis) - 10/21/23 Discharge Disposition: Home or Self Care Attending Physician: Brielle Lowry V Allergies, Adverse Reactions, Alerts Substance Criticality Severity Reaction Reaction Severity Status rosuvastatin Unable to assess criticality Unknown Muscle ache Active Pollen Unable to assess criticality Unknown Active Assessment and Plan Future Scheduled Tests Radiology* MRI Abdomen w/ + w/o Contrast 10/21/23 Functional Status 10/21/23 COVID-19 Screening None Family Member Travel History No recent t ravel Recent Travel History No recent travel Medications Bev Allergy 60 mg oral tablet 60 mg = 1 tab, Oral, Daily, # 20 tab, 0 Refill(s) Start Date: 10/21/23 Status: Ordered atorvastatin 20 mg oral tablet 20 mg = 1 tab, Oral, Daily, # 30 tab, 0 Refill(s) Start Date: 10/21/23 Status: Ordered hydroCHLOROthiazide 50 mg oral tablet Oral, Daily, Take one half tab daily orally once a day., 0 Refill(s) Start Date: 10/21/23 Status: Ordered hydrOXYzine hydrochloride 10 mg oral tablet 10 mg = 1 tab, Oral, BID, Take 1-2 tabs during day time for pruritus, # 60 tab, 1 Refill(s), Pharmacy: [id number], 177.8, cm, 10/21/23 14:04:00 EDT, Height, 91.08, kg, 10/21/23 14:06:00 EDT,Weight Dosing Start Date: 10/21/23 Status: Ordered hydrOXYzine hydrochloride 25 mg oral tablet 25 mg = 1 tab, Oral, Daily, Before going to bed, # 30 tab, 0 Refill(s), Pharmacy: [id number], 177.8, cm, 10/21/23 14:04:00 EDT, Height, 91.08, kg, 10/21/23 14:06:00 EDT, Weight Dosing Start Date: 10/21/23 Status: Ordered ibuprofen 400 mg oral tablet Oral, 1-2 tabs with food or milk as needed once a day at bedtime, 0 Refill(s) Start Date: 10/21/23 Status: Ordered lisinopril 5 mg oral tablet 5 mg = 1 tab, Oral, Daily, # 30 tab, 0 Refill(s) Start Date: 10/21/23 Status: Ordered losartan 50 mg oral tablet 50 mg = 1 tab, Oral, BID, 0 Refill(s) Start Date: 10/21/23 Status: Ordered Lupron Depot 45 mg/6 months intramuscular kit 45 mg =, Intramuscular, every 6 mo, # 1 EA, 0 Refill(s) Start Date: 10/21/23 Stop Date: 04/18/24 Status: Ordered montelukast 10 mg oral tablet 10 mg = 1 tab, Oral, every evening, 0 Refill(s) Start Date: 10/21/23 Status: Ordered nitroglycerin 0.4 mg sublingual tablet 0.4 mg = 1 tab, Sublingual, every 5 min, PRN as needed for chest pain, not to exceed 3 doses/15 min--if pain persists, seek medical attention, # 25 tab, 0 Refill(s) Start Date: 10/21/23 Status: Ordered omeprazole 20 mg oral delayed release capsule 20 mg = 1 cap, Oral, Daily, # 30 cap, 0 Refill(s) Start Date: 10/21/23 Status: Ordered Potassium Chloride (Eqv-K-Tab) 20 mEq oral tablet, extended release 20 mEq = 1 tab, Oral, TID, # 90 tab, 0 Refill(s), Pharmacy: [id number], 177.8, cm, 10/21/23 14:04:00 EDT, Height, 91.08, kg, 10/21/23 14:06:00 EDT, Weight Dosing Start Date: 10/21/23 Status: Ordered simvastatin 20 mg oral tablet 20 mg = 1 tab, Oral, every evening, 0 Refill(s) Start Date: 10/21/23 Status: Ordered tamsulosin 0.4 mg oral capsule 0.8 mg = 2 cap, Oral, every night at bedtime, # 90 cap, 0 Refill(s) Start Date: 10/21/23 Status: Ordered Problem List Condition Confirmation Course Effective Dates Status H ealth Status Informant Abdominal pain Confirmed Active Benign prostatic hyperplasia with lower urinary tract symptoms Confirmed Active Angelica onychomycosis Confirmed Active Chronic pain Confirmed Active Urinary hesitancy Confirmed Active Diverticulosis 1 Confirmed Active Shortness of breath on exertion Confirmed Active GERD without esophagitis Confirmed Active Hyperlipidemia Confirmed Active HTN (hypertension) Confirmed Active Hypokalemia Confirmed Active Elevated liver enzymes Confirmed Active Prostate CA 2 Confirmed Active Pancreatic mass Confirmed Active Depression with anxiety Confirmed Active RAEANN on CPAP Confirmed Active BMI 28.0-28.9,adult Confirmed Active Numbness and tingling of foot Confirmed Active Polymyalgia rheumatica Confirmed Active Gallbladder polyp Confirmed Active Prediabetes Confirmed Active Pruritic condition Confirmed Active Psoriasis Confirmed Active Sensorineural hearing loss Confirmed Active Weight loss Confirmed Active 1HX of 2Being treated separate issue is 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 Vital Signs Most recent to oldest [Reference Range]: 1 Temperature Oral [35.8-37.3 Deg C] 36.7 Deg C (10/21/23 2:04 PM) Temperature Oral (DegF) [96.4-99.1 Deg F ] 98 Deg F (10/21/23 2:04 PM) Peripheral Pulse Rate [60-100 bpm] 65 bp m (10/21/23 2:04 PM) Blood Pressure [90-140/60-90 mmHg] 128/6 8mmHg (10/21/23 2:04 PM) Weight Measured (lbs) 200.797 lb (10/21/23 2:04 PM) Weight Dosing 91.080 kg (10/21/23 2:04 PM) Humphrey Body Weight Calculated 73 kg (10/21/23 2:04 PM) Height/Length Measured (inches) 70 inch (10/21/23 2:04 PM) BSA Measured 2.12 m2 (10/21/23 2:04 PM) Body Mass Index 28.81 kg/m2 (10/21/23 2:04 PM) Height 177.80 cm (10/21/23 2:04 PM) Weight 91.08 kg (10/21/23 2:04 PM) Social History Social History Type Response Tobacco Never tobacco user T obacco Use:. Sex Male Physician Outpatient Note * Brielle Lowry V: PERFORM Event Display: Office Clinic Note Physician Authored Date: [id number] KIA SHAW Devon :1940 Age:83 years Sex:Male Visit Date:10/21/2023 Primary Care Physician: Jez Vance Chief Complaint GALLBLADDER REFERRAL History of Present Illness This was a visit initially scheduled for gall bladder issues. ?? The pt has not been feeling well for the last 2 weeks, every day the symptoms have been getting worse. The symptoms are??feeling bloated and having a discomfort on the right side of the abdomen. Bowels have changed for one month, diarrhea alternating with constipation.? The pt says he has been itching like crazy, 2 weeks, the sleep has been bad because of it. The symptoms have been worse during night time.??Asking??to??send a??medication that can help with the symptoms.? Feeling tired and fatigued for a whole summer.? Lost 8 months, does not have an appetite. ?? Review of Systems As above.?? Physical Exam Vitals & Measurements T:??36.7?C ??(Oral)?? HR:??65??(Peripheral)?? BP:??128/68?? SpO2:??97%?? HT:??177.80??cm?? WT:??91.08??kg?? BMI:??28.81?? BSA:??2.12?? CONSTITUTIONAL: The pt alert and oriented x 3, noted to have skin??and sclera??jaundice.?? Scab tissue on the skin - due to excessive pruritus. RESPIRATORY: Lungs are clear to auscultation bilaterally.?? Good bilateral breath sounds are noted. CARDIOVASCULAR: No jugular venous distension or carotid bruits. There is no murmur. Normal S1 and S2 sounds are noted without gallop. ABDOMEN: Soft to palpation in all four quadrants. There is no organomegaly and no rebound tenderness. Bowel sounds are normal.?? Tenderness to palpation in the right abdomen, more in the RLQ. Assessment/Plan 1.??Pancreatic mass??K86.89 ??Conversation with the pt - informed about the pancreatic??mass - needs further imaging. ?? Reviewed abdominal US - noted pancreatic mass in the head of pancreas and recommended MRI??with??pancreatic protocol with and without contrast. MRI was ordered today.?? Blood work was initiated - noted K 2.9, elevated liver enzymes, alk phosphatase, lipase, bilirubin 6.?? Contacted hospitalist Dr. Vargas -??recommended to initiate KCh 20??TID, recheck potassium on Wednesday.? Called pt, left message at 06:01 pm.?? Recommended to go to ER if the symptoms get worse. ?? Ordered: CA 19-9 [facility], Blood, Routine, 10/21/23 15:08:00 EDT, Once, Lab Collect, Pancreatic mass Weight loss Pruritic condition Abdominal pain MRI Abdomen w/ + w/o Contrast, 10/21/23, Routine, Reason: pancreatic mass on US, weight loss, jaundice, abdominal pain, No, No, Please, proceed with pancreatic protocol with and without contrast, Transport Mode: Ambulatory, Pancreatic mass Weight loss Pruritic condition Abdom... ?? 2.??Weight loss??R63.4 ??Look at the note above. Ordered: hydrOXYzine hydrochloride 25 mg oral tablet, 25 mg = 1 tab, Oral, Daily, Before going to bed, # 30 tab, 0 Refill(s), Pharmacy: [id number], 177.8, cm, 10/21/23 14:04:00 EDT, Height, 91.08, kg, 10/21/23 14:06:00 EDT, Weight Dosing hydrOXYzine hydrochloride 10 mg oral tablet, 10 mg = 1 tab, Oral, BID, Take 1-2 tabs during day time for pruritus, # 60 tab, 1 Refill(s), Pharmacy: [id number], 177.8, cm, 10/21/23 14:04:00 EDT, Height, 91.08, kg, 10/21/23 14:06:00 EDT, Weight Dosing CA 199 [facility], Blood, Routine, 10/21/23 15:08:00 EDT, Once, Lab Collect, Pancreatic mass Weight loss Pruritic condition Abdominal pain MRI Abdomen w/ + w/o Contrast, 10/21/23, Routine, Reason: pancreatic mass on US, weight loss, jaundice, abdominal pain, No, No, Please, proceed with pancreatic protocol with and without contrast, Transport Mode: Ambulatory, Pancreatic mass Weight loss Pruritic condition Abdom... ?? 3.??Pruritic condition??L29.9 ??I sent prescription for hydroxyzine 25 mg q night and 10 mg as needed during day time. Ordered: hydrOXYzine hydrochloride 25 mg oral tablet, 25 mg = 1 tab, Oral, Daily, Before going to bed, # 30 tab, 0 Refill(s), Pharmacy: [id number], 177.8, cm, 10/21/23 14:04:00 EDT, Height, 91.08, kg, 10/21/23 14:06:00 EDT, Weight Dosing hydrOXYzine hydrochloride 10 mg oral tablet, 10 mg = 1 tab, Oral, BID, Take 1-2 tabs during day time for pruritus, # 60 tab, 1 Refill(s), Pharmacy: [id number], 177.8, cm, 10/21/23 14:04:00 EDT, Height, 91.08, kg, 10/21/23 14:06:00 EDT, Weight Dosing CA 19-9 [facility], Blood, Routine, 10/21/23 15:08:00 EDT, Once, Lab Collect, Pancreatic mass Weight loss Pruritic condition Abdominal pain MRI Abdomen w/ + w/o Contrast, 10/21/23, Routine, Reason: pancreatic mass on US, weight loss, jaundice, abdominal pain, No, No, Please, proceed with pancreatic protocol with and without contrast, Transport Mode: Ambulatory, Pancreatic mass Weight loss Pruritic condition Abdom... ?? 4.??Abdominal pain??R10.9 We talked about pain: the pt described symptoms as discomfort - no pain meds??needed at this time. Ordered: hydrOXYzine hydrochloride 25 mg oral tablet, 25 mg = 1 tab, Oral, Daily, Before going to bed, # 30 tab, 0 Refill(s), Pharmacy: [id number], 177.8, cm, 10/21/23 14:04:00 EDT, Height, 91.08, kg, 10/21/23 14:06:00 EDT, Weight Dosing hydrOXYzine hydrochloride 10 mg oral tablet, 10 mg = 1 tab, Oral, BID, Take 1-2 tabs during day time for pruritus, # 60 tab, 1 Refill(s), Pharmacy: [id number], 177.8, cm, 10/21/23 14:04:00 EDT, Height, 91.08, kg, 10/21/23 14:06:00 EDT, Weight Dosing CA 19-9 [facility], Blood, Routine, 10/21/23 15:08:00 EDT, Once, Lab Collect, Pancreatic mass Weight loss Pruritic condition Abdominal pain MRI Abdomen w/ + w/o Contrast, 10/21/23, Routine, Reason: pancreatic mass on US, weight loss, jaundice, abdominal pain, No, No, Please, proceed with pancreatic protocol with and without contrast, Transport Mode: Ambulatory, Pancreatic mass Weight loss Pruritic condition Abdom... ?? 5.??Hypokalemia??E87.6 ??Look at the note above. Ordered: Potassium Chloride (Eqv-K-Tab) 20 mEq oral tablet, extended release, 20 mEq = 1 tab, Oral, TID, # 90 tab, 0 Refill(s), Pharmacy: [id number], 177.8, cm, 10/21/23 14:04:00 EDT, Height, 91.08, kg, 10/21/23 14:06:00 EDT, Weight Dosing ?? 6.??Elevated liver enzymes??R74.8 ??Look at the note above. ?? Future Orders MRI Abdomen w/ + w/o Contrast, 10/21/23, Routine, Reason: pancreatic mass on US, weight loss, jaundice, abdominal pain, No, No, Please, proceed with pancreatic protocol with and without contrast, Transport Mode: Ambulatory, Pancreatic mass Weight loss Pruritic condition Abdom... Problem List/Past Medical History Ongoing Abdominal pain Benign prostatic hyperplasia with lower urinary tract symptoms BMI 28.0-28.9,adult Angelica onychomycosis Chronic pain Depression with anxiety Diverticulosis Elevated liver enzymes Gallbladder polyp GERD without esophagitis HTN (hypertension) Hyperlipidemia Hypokalemia Numbness and tingling of foot RAEANN on CPAP Pancreatic mass Polymyalgia rheumatica Prediabetes Prostate CA Pruritic condition Psoriasis Sensorineural hearing loss Shortness of breath on exertion Urinary hesitancy Weight loss Historical No qualifying data Medications Bev Allergy 60 mg oral tablet, 60 mg= 1 tab, Oral, Daily atorvastatin 20 mg oral tablet, 20 mg= 1 tab, Oral, Daily hydroCHLOROthiazide 50 mg oral tablet, Oral, Daily hydrOXYzine hydrochloride 10 mg oral tablet, 10 mg= 1 tab, Oral, BID, 1 refills hydrOXYzine hydrochloride 25 mg oral tablet, 25 mg= 1 tab, Oral, Daily ibuprofen 400 mg oral tablet, Oral lisinopril 5 mg oral tablet, 5 mg= 1 tab, Oral, Daily losartan 50 mg oral tablet, 50 mg= 1 tab, Oral, BID Lupron Depot 45 mg/6 months intramuscular kit, 45 mg, Intramuscular, every 6 mo montelukast 10 mg oral tablet, 10 mg= 1 tab, Oral, every evening nitroglycerin 0.4 mg sublingual tablet, 0.4 mg= 1 tab, Sublingual, every 5 min, PRN omeprazole 20 mg oral delayed release capsule, 20 mg= 1 cap, Oral, Daily Potassium Chloride (Eqv-K-Tab) 20 mEq oral tablet, extended release, 20 mEq= 1 tab, Oral, TID simvastatin 20 mg oral tablet, 20 mg= 1 tab, Oral, every evening tamsulosin 0.4 mg oral capsule, 0.8 mg= 2 cap, Oral, every night at bedtime Allergies Pollen rosuvastatin??(Muscle ache) Social History Electronic Cigarette/Vaping Electronic Cigarette Use: Never. Tobacco Never tobacco user Tobacco Use:. Electronically Signed on 10/21/2023 18:18 EDT Brielle Lowry V Patient Care team information Care Team Personnel Name: Jez Vance Position: No Access Member Role: Primary Care Physician Address: Address: [address] [place] [address]- Care Team Related Persons Name: LIAM SHAW Address: Home [address] [facility], [id number]
--- OUTSIDE RECORDS SUMMARY | 2023-12-17 01:44 | XMS_ITS | Encounter Summary ---
Author Organization [facility] Address [address] [place] [id number] Care Team Providers Care Physician Neonatology Name Role Phone Devorah Flowers MD Primary Care Provider [phone] Encounter Details Date Type Department Care Team (Latest Contact Info) Description 08/15/2014 15:18 EDT - 08/15/2014 23:59 EDT Hospital Encounter [address] [address] Unknown, Provider, Discharge Disposition: Home or Self Care Social History Tobacco Use Types Packs/Day Years Used Date Smoking Tobacco: Never Assessed Sex and Gender Information Value Date Recorded Sex Assigned at Not on file Gender Identity Not on file Sexual Orientation Not on file documented as of this encounter Discharge Disposition Disposition Code Departure Means Destination Home or Self Mcfp documented in this encounter Plan of Treatment Not on file documented as of this encounter Visit Diagnoses Not on filedocumented in this encounter Care Teams Physician Neonatology Relationship Specialty Start Date End Date Devorah Flowers MD [address] [place] [phone] PCP - General 08/15/09 08/19/14 documented as of this encounter
--- OUTSIDE RECORDS SUMMARY | 2023-12-17 01:44 | XMS_ITS | Continuity of Care Document ---
Author Organization [facility] Address [address] [place] [id number] Care Team Providers Care Documentation Consultant Name Role Phone Jez Vance Primary Care Physician Encounter [facility] [id number] Date(s): 10/21/23 - 10/21/[address] [address] Discharge Disposition: Home or Self Care Attending Physician: Jez Vance Admitting Physician: Jez Vance Referring Physician: Jez Vance Allergies, Adverse Reactions, Alerts Substance Criticality Severity Reaction Reaction Severity Status rosuvastatin Unable to assess criticality Unknown Muscle ache Active Pollen Unable to assess criticality Unknown Active Assessment and Plan Future Scheduled Tests Radiology* MRI Abdomen w/ + w/o Contrast 10/21/23 Medications Bev Allergy 60 mg oral tablet [...] pruritus, # 60 tab, 1 Refill(s), Pharmacy: [id number], 177.8, cm, 10/21/23 14:04:00 EDT, Height, 91.08, kg, 10/21/23 14:06:00 EDT,Weight Dosing Start Date: 10/21/23 Status: Ordered hydrOXYzine hydrochloride 25 mg oral tablet 25 mg = 1 tab, Oral, Daily, Before going to bed, # 30 tab, 0 Refill(s), Pharmacy: [id number], 177.8, cm, 10/21/23 14:04:00 [...] TID, # 90 tab, 0 Refill(s), Pharmacy: [id number], 177.8, cm, 10/21/23 14:04:00 [...] is bowel 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 Results Radiology Reports * Exam Date Time Procedure Performing Provider Status 10/21/23 9:40 AM US Abdomen Limited Suzette Rodríguez; Melyssa (Verified) Notes: (US Abdomen Limited) Reason For Exam: Abdominal discomfort US Abdomen Limited EXAMINATION: US Abdomen Limited CLINICAL HISTORY: Abdominal [...] who have questions please contact the health professional healthcare representative that requested your imaging first. Social History Social History Type Response Tobacco Never tobacco user T obacco Use:. Sex Male Patient Care team information Care Team Personnel Name: Jez Vance Position: No Access Member Role: Primary Care Physician Address: Address: [address] [place] [id number] Care Team Related Persons Name: LIAM SHAW Address: Home [address] [facility], [id number]
--- OUTSIDE RECORDS SUMMARY | 2023-12-17 01:44 | XMS_ITS | Patient Health Record ---
Author Organization [facility] Address [address], [place] [id number] Care Team Providers Care Herb Counselor Name Role Phone Jez Vance MD Primary Care Provider [phone] Allergies Allergen (clinical drug ingredient) Drug/Non Drug Allergy documented on EMR Reaction Allergy Type Onset Date Status Environmental Unknown Drug Allergy Act heaven Results Component Value Reference Range Notes CMP Reviewed date:11/23/2023 10:09:21 AM Interpretation: Performing Lab:NL1, [facility] [id number] [place], [place] [id number] Jocelyn Muniz M.D. Notes/Report: Received Date: NON-FASTING [...] POST-PROSTATECTOMY Reviewed date:11/23/2023 10:09:35 AM Interpretation: Performing Lab:[facility] [address] Jocelyn Muniz M.D. Notes/Report: Received Date: NON-FASTING NON-FASTING NON-FASTING NON-FASTING NON-FASTING PSA, POST PROSTATECTOMY <0.02 PSA values obtained with different assay methods or kits cannot be used interchangeably. This test was performed using the [employer] World DxI method. PSA, ICMA is not to [...] 19-9 Reviewed date:11/23/2023 10:09:41 AM Interpretation: Performing Lab:[facility] [address] Jocelyn Muniz M.D. Notes/Report: Received Date: [id number] NON-FASTING NON-FASTING NON-FASTING NON-FASTING NON-FASTING CA 19-9 181 <34 U/mL This test was performed using the Siemens chemiluminescent method. Values obtained from different assay methods cannot be used interchangeably. CA 19-9 levels, regardless of value, should not be interpreted as absolute evidence of the presence or absence of disease. CBC WITH DIFF Reviewed date:11/23/2023 10:09:54 AM Interpretation: Performing Lab:[facility] [address] Jocelyn Muniz M.D. Notes/Report: Received Date: [...] MPV 11.4 7.5-12.5 fL ABSOLUTE NEUTROPHILS [phone] cells/uL ABSOLUTE LYMPHOCYTES 862 951-4192 cells/uL ABSOLUTE MONOCYTES 250 200-950 cells/uL ABSOLUTE EOSINOPHILS 270 15-500 cells/uL ABSOLUTE BASOPHILS 30 0-200 cells/uL NEUTROPHILS 71.9 LYMPHOCYTES 17.1 MONOCYTES 5.0 EOSINOPHILS 5.4 BASOPHILS 0.6 TESTOSTERONE TOTAL SERUM Reviewed date:11/23/2023 10:09:28 AM Interpretation: Performing Lab:NL1, [facility] [address] Jocelyn Muniz M.D. Notes/Report: Received Date: NON-FASTING NON-FASTING NON-FASTING NON-FASTING NON-FASTING TESTOSTERONE, TOTAL, MALES (ADULT), IA <10 250-827 ng/dL In hypogonadal males, Testosterone, Total, LC/MS/MS, is the recommended assay due to the diminished accuracy of immunoassay at levels below 250 ng/dL. This test code (22293) must be collected in a red-top tube with no gel. ZIO PATCH Reviewed date:12/14/2023 08:11:29 PM Interpretation: Performing Lab: Notes/Report: Echocardiogram Reviewed date:12/07/2023 09:12:18 AM Interpretation:>60% Performing Lab: Notes/Report: >60% Ejection Fraction % >60% US Abdomen Limited Reviewed date:11/03/2023 01:54:28 AM [...] who have questions please contact the health housekeeper caregiver that requested your imaging first. Electronically signed by: Milton Klein MD, [facility] ([phone]), at 10/21/2023 11:12 AM US Abdomen Limited [...] MRCP. US Abdomen Limited Thank you for alexx oneil participate in the care of this patient. If you are a US Abdomen Limited health care provider and have any questions regarding this report, please US Abdomen Limited contact the number below. For patients who have questions please contact the US Abdomen Limited health housekeeper caregiver that requested your imaging first. US Abdomen Limited Electronically paul d by: Milton Klein MD, [facility] ([phone]), at 10/21/2023 11:12 AM Ultrasound Abdominal Limited IH Reviewed date:10/20/2023 02:22:04 PM Interpretation: Performing Lab: Notes/Report: ELECTROCARDIOGRAM EKG IH Reviewed date:10/20/2023 02:20:52 PM Interpretation: Performing Lab: Notes/Report: CBC WITH DIFF Reviewed date:11/03/2023 01:54:29 AM Interpretation: Performing Lab:NL1, [facility] [id number] [place], [place] [phone] Jocelyn Muniz M.D. Notes/Report: Received Date: NON-FASTING NON-FASTING WHITE BLOOD CELL COUNT 4.7 3.8-10.8 Thousand/uL RED BLOOD CELL COUNT 4.18 4.20-5.80 Million/uL HEMOGLOBIN 13.7 13.2-17.1 g/dL HEMATOCRIT 42.2 38.5-50.0 % MCV 101.0 80.0-100.0 fL MCH 32.8 27.0-33.0 pg MCHC 32.5 32.0-36.0 g/dL RDW 12.3 11.0-15.0 % PLATELET COUNT 263 140-400 Thousand/uL MPV 11.3 7.5-12.5 fL ABSOLUTE NEUTROPHILS 3149 2362-2599 cells/uL ABSOLUTE LYMPHOCYTES 770 426-7294 cells/uL ABSOLUTE MONOCYTES 437 200-950 cells/uL ABSOLUTE EOSINOPHILS 179 15-500 cells/uL ABSOLUTE BASOPHILS 28 0-200 cells/uL NEUTROPHILS 67 LYMPHOCYTES 19.3 MONOCYTES 9.3 EOSINOPHILS 3.8 BASOPHILS 0.6 CMP Reviewed date:11/03/2023 01:54:29 AM Interpretation: Performing Lab:NL1, [facility] [id number] [place], [place] [id number] Jocelyn Muniz M.D. Notes/Report: Received Date: NON-FASTING [...] 9-46 U/L Verified by rep eat analysis. CMP Reviewed date:11/03/2023 01:54:28 AM Interpretation: Performing Lab: Notes/Report: [id number] [address] [address] [place], [place] [id number] [facility] [id number] SELF Sodium Level 134 136-145 mmol/L Potassium [...] m2 BUN/Creat Ratio 21 A/G Ratio 1.8 CBC w/ Diff Reviewed date:11/03/2023 01:54:28 AM Interpretation: Performing Lab: Notes/Report: [id number] [address] [address] [place], [place] [id number] [facility] [id number] SELF Instr WBC 4.74 WBC 4.74 4.80-10.80 x10 RBC 4.21 4.20-5.90 x10 Hgb 13.7 13.5-17.5 g/dL Hct 38.8 40.0-50.0 % MCH 32.5 27.5-32.1 pg MCHC 35.3 33.0-36.0 g/dL MPV 10.6 6.0-10.0 fL MCV 92.2 80.0-97.0 fL Platelets 223 150-400 x10 Breakpoint RDW-CV 12.8 11.6-14.8 % Auto Diff Reviewed date:11/03/2023 01:54:28 AM Interpretation: Performing Lab: Notes/Report: [id number] [address] [address] [place], [place] [id number] [facility] [id number] SELF Neutro Auto 66.1 40.0-74.0 /100(WBCs) Lymph Auto 19.8 19.0-48.0 /100(WBCs) [place] Auto 10.5 3.0-10.0 /100(WBCs) Eos, Auto 3.2 1.0-7.0 /100(WBCs) Basophil Auto 0.20 0.00-2.00 /100(WBCs) Neutro Absolute 3.13 1.20-6.70 x10 Lymph Absolute 0.94 1.20-3.40 x10 [place] Absolute 0.50 0.11-0.70 x10 Eos Absolute 0.15 0.00-0.70 x10 Baso Absolute 0.01 0.00-0.20 x10 Breakpoint Imm Gran Auto 0.2 Imm Gran Absolute 0.01 0.00-0.04 x10 Lipase Reviewed date:11/03/2023 01:54:28 AM Interpretation: Performing Lab: Notes/Report: [id number] [address] [address] [place], [place] [id number] [facility] [id number] SELF Lipase Level 75 13-60 unit/L Bili Dir Reviewed date:11/03/2023 01:54:28 AM Interpretation: Performing Lab: Notes/Report: Order placed by GL_COTT_RFLX_BILI rule [id number] [address] [address] [place], [place] [id number] [facility] [id number] SELF Bilirubin Direct 5.0 0.0-0.3 mg/dL Amylase Reviewed date:11/03/2023 01:54:28 AM Interpretation: Performing Lab: Notes/Report: [id number] [address] [address] [place], [place] [id number] [facility] [id number] SELF Amylase Level 45 28-100 unit/L CA 19-9 [facility] Reviewed date:11/03/2023 01:54:28 AM Interpretation: Performing Lab: Notes/Report: [id number] [address] [address] [place], [place] [id number] [facility] KIA SHAW [id number] SELF CA 19-9 [facility] 79.0 <=35.0 This result was generated using a Doreen Danis immunoassay. Results obtained from other methods or manufacturers cannot be used interchangeably with this method. Test performed at: [facility] [place] [address] LIPID PANEL Reviewed date:09/15/2023 02:03:07 PM Interpretation: Performing Lab:NL1, [facility] [place], [place] [phone] Jocelyn Muniz M.D. Notes/Report: Received Date: [id number] NON-FASTING NON-FASTING NON-FASTING CHOLESTEROL, TOTAL 140 <200 mg/dL HDL CHOLESTEROL 44 > OR = 40 mg/dL TRIGLYCERIDES 109 <150 mg/dL LDL-CHOLESTEROL 77 Reference range: <100 Desirable range <100 mg/dL for primary prevention; <70 mg/dL for patients with CHD or diabetic patients with > or = 2 CHD risk factors. LDL-C is now calculated using the Anthony-Kimble calculation, which is a validated novel method providing better accuracy than the Friedewald equation in the estimation of LDL-C. Anthony SS et al. ADONAY. 2013;310(19): 7738-8278 (http://education.[employer].com/faq/F AQ164) CHOL/HDLC RATIO 3.2 <5.0 (calc) NON HDL CHOLESTEROL 96 <130 mg/dL (calc) For patients with diabetes plus 1 major ASCVD risk factor, treating to a non-HDL-C goal of <100 mg/dL (LDL-C of <70 mg/dL) is considered a therapeutic option. PSA TOTAL Reviewed date:09/15/2023 02:02:54 PM Interpretation: Performing Lab:NL1, [facility] [address] Jocelyn Muniz M.D. Notes/Report: Received Date: NON-FASTING NON-FASTING NON-FASTING PSA, TOTAL <0.04 < OR = 4.00 ng/mL The total PSA value from this assay system is standardized against the WHO standard. The test result will be approximately 20% lower when compared to the equimolar-standardized total PSA (Stefania Miguel Angel). Comparison of serial PSA results should be interpreted with this fact in mind. This test was performed using the Siemens chemiluminescent method. Values obtained from different assay methods cannot be used interchangeably. PSA levels, regardless of value, should not be interpreted as absolute evidence of the presence or absence of disease. BMP Reviewed date:09/15/2023 02:03:21 PM Interpretation: Performing Lab:NL1, [facility] [id number] [place], [place] [id number] Jocelyn Muniz M.D. Notes/Report: Received Date: NON-FASTING [...] 28 20-32 mmol/L CALCIUM 9.1 8.6-10.3 mg/dL HGA1C FINGERSTICK Reviewed date:09/17/2023 10:05:13 AM Interpretation:5.4 Performing Lab: Notes/Report: 5.4 HGA1C 5.4 4 - 7 Reason For Referral Reason Pt seen 10/21/23, no sukumar scanned to chart for provider review 11/08/23 LR -- APPT 10/21/23 LR -- FAXED TO 10/20/23 LR -- [facility] GEN SURGERY - NEEDS SURGICAL CONSULT RE GB OBSTRUCTION - LABS AND FORMAL SONO PENDING Please contact our office within 7 days to notify [facility] of scheduled appointment Diagnosis 1 SOB (shortness of br eath) on exertion (R06.02) Referral Organization [facility] Yoel Bailon Referring Provider First Name Jez Referring Provider Last Name Rajiv Gates [facility] Referred Provider [facility] Referred Provider Specialty General Surg matt General Notes Pallavi Campos 05/2023 04:55:13 PM >FAXED TO GEN SURG, Pallavi Campos 10/21/2023 03:42:14 PM >Per Sheyla pt had appt 10/21/23 at 2:00pm, notes pending completion and signature., Pallavi Campos 11/08/2023 10:23:44 AM >Pt seen 10/21/23, notes scanned to chart for provider review. Referral Priority Routine Referral Appointment Date 10/21/2023 Reason FAXED TO URGENT P CL 12/15/23 LP. Please eval and treat. Please contact our office within 1-2 days for this urgent referral's scheduled appointment. Diagnosis 1 PSVT (paroxysmal sup raventricular tachycardia) (I47.10) Referral Organization [facility] [place] Referring Provider First Name Jez Referring Provider Last Name Rajiv Gates Referring Provider Speciality [facility] daniel Referred Provider [facility], Cardiology Referred Provider Specialty Cardiology General Notes Catalina Kaiser 11/17 12:03:58 PM >Pt needs cardiac clearance for Whipple procedure in Feb at [facility]. Pt has been having PSVT. Needs to see cardiology to see if meds are needed prior to surgery. Has recent ECHO and Zio Reports (attached)., Catalina Kaiser 12/15/2023 12:05:31 PM >FAXED TO URGENT PCL Referral Priority Urgent Medications Medication SIG (Take, Route, Frequency, Duration) [...] Administration Date Status Comme nts TDaP Adult [facility] [id number] Unknown 09/07/2007 Administered TD 7 and Up [facility] 15892 IM Intramuscular 11/19/2017 Administered SHINGRIX [facility] [id number] Unknown 09/18/2018 Administered SHINGRIX [facility] 26025 IM Intramuscular 09/19/2018 Administered Prevnar PCV 13 Adult 65+ Purchased [id number] Unknown 10/24/2017 Administered Lot# [id number] Exp 05/2019 [place] Pneumovax 23 Adult 65+ Purchased [id number] Unknown 09/03/2020 Administered Influenza Adult FluBlok high dose PURCHASED IM Intramuscular 10/15/2017 Administered Influenza Adult FluBlok high dose PURCHASED IM Intramuscular 11/15/2019 Administered Influenza Adult FluBlok high dose PURCHASED IM Intramuscular 11/11/2021 Administered Influenza 3 Yrs and up [employer] [id number] Unknown 11/17/2010 Administered INFLUENZA 18 YRS TO [...] 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 Stress is when someone feels tense, nervous, anxious, or can't sleep at night because their mind is troubled Quite a bit In the past year have you sp ent more than 2 nights in a row in a assisted, skilled nursing, longterm center, or juvenile correctional facility? No Are [...] Problem Status W/U Status Risk Notes Problem 958799118 Mixed hyperlipidemia (E78.2) Active confirmed Problem 18247554 Other chronic pa in (G89.29) Active confirmed Problem 966815605 Annual physical exam (Z00.00) Active confirmed Problem Elevated fasting lipid profile (289970514997) Elevated lipids (E78.5) Active confirmed Problem 62715255 Essential hypertension (I10) Active confirmed Problem 908772187 Prostate CA (C61) Active confirmed Problem 775576317 Gastroesophageal reflux disease without esophagitis (K21.9) Active confirmed Problem 70830634 Angelica onychomycosis (B37.2) Active confirmed Problem 4036420 Urinary hesitanc y (R39.11) Active confirmed Problem Skin sensation disturbance (72141488) Numbness and tingling of foot (R20.2) Active confirmed Problem 838118551 Benign prostatic hyperplasia with lower urinary tract symptoms (N40.1) Active confirmed Problem Paroxysmal SVT (supraventricular tachycardia) (I47.10) Active confirmed Vital Signs Heart Rate 46 BPM 10/20/2023 BIGEMINY WITH R ATE ~50 Temperature 97.6 degrees Fahrenheit 10/20/2023 BIGE ANUSHKA WITH RATE ~50 Respiratory Rate 18 /min 09/17/2023 Blood pressure diastolic 66 mmHg 10/20/2023 BIG EMINY WITH RATE ~50 Oximetry 97 % 10/20/2023 BIGEMINY WITH R ATE ~50 Height 69.5 in 10/20/2023 BIGEMINY WITH R ATE ~50 Blood pressure systolic 122 mmHg 10/20/2023 BIGE ANUSHKA WITH RATE ~50 Weight 187 lbs 10/20/2023 BIGEMINY WITH R ATE ~50 BMI 27.22 kg/m2 10/20/2023 BIGEMINY WITH R ATE ~50 Encounters Encounter Location Date Provider Diagnosis [address] [address] 07/01/2023 Jez Vance MD [address] [address] 09/14/2023 Jez Vance MD Essential hypertension I10 ; Mixed hyperlipidemia E78.2 and Benign prostatic hyperplasia with lower urinary tract symptoms N40.[address] [address] 09/17/2023 Jez Vance MD Encounter for annual wellness visit (AWV) in Medicare patient Z00.00 ; Essential hypertension I10 ; Prostate CA C61 and Numbness and tingling of foot R20.[address] [address] 10/20/2023 Jez Vance MD SOB (shortness of breath) on exertion R06.02 ; Dilated gallbladder K82.8 and Abdominal discomfort R10.[address] [address] 11/16/2023 Jez Vance MD Bigeminy I49.[address] [address] 11/17/2023 Jez Vance MD Prostate CA C61 and senior living (current) use of other agents affecting estrogen receptors and estrogen levels Z79.[address] [address] 07/13/2023 Jez Vance MD Annual physical exam Z00.[address] [address] 09/13/2023 Jez Vance MD Essential hypertension I10 ; Mixed hyperlipidemia E78.2 and Benign prostatic hyperplasia with lower urinary tract symptoms N40.[address] [place] [address] 09/17/2023 Jez Vance MD PRAPARE POSITIVE PRAP [facility] [address] [facility] [address] 10/19/2023 Jez Vance MD [address] [place] [address] 10/21/2023 Jez Vance MD [address] [place] [address] 10/28/2023 Jez Vance MD [address] [place] [address] 10/28/2023 Jez Vance MD [facility] [address] [place] [address] 11/03/2023 Jez Vance MD [address] [place] [address] 11/12/2023 Jez Vacne MD [address] [place] [address] 11/22/2023 Jez Vance MD [address] [place] [address] 12/14/2023 Jez Vance MD PSVT (paroxysmal supraventricular tachycardia) I47.10 Assessments Encounter Date Diagnosis (ICD Code) Assessment Notes Treat ment Notes Treatment Clinical Notes 07/13/2023 Annual physical exam (ICD-10 - Z00.00) 09/13/2023 Mixed hyperlipidemia (ICD-10 - E78.2) 09/13/2023 Essential hypertensi on (ICD-10 - I10) 09/17/2023 Encounter for annual wellness visit (AWV) in Medicare patient (ICD-10 - Z00.00) 09/17/2023 PRAPARE POSITIVE (ICD9-CM - PRAP) 10/20/2023 SOB (shortness of breath) on exertion (ICD-10 - R06.02) 10/20/2023 Dilated gallbladder (ICD-10 - K82.8) 10/28/2023 [facility] (ICD9-CM - HOSP) 12/14/2023 PSVT (paroxysmal supraventricular tachycardia) (ICD-10 - I47.10) 09/17/2023 Essential hypertensi on (ICD-10 - I10) 11/17/2023 Prostate CA (ICD-10 - C61) 11/16/2023 Bigeminy (ICD-10 - I49.8) 09/14/2023 Essential hypertensi on (ICD-10 - I10) Left ac venipuncture done with 23 g needle. Successful first attempt. Pt tolerated it well. Lab sent to [facility].carmen prabhakar 09/14/2023 Mixed hyperlipidemia (ICD-10 - E78.2) 09/17/2023 Prostate CA (ICD-10 - C61) 10/20/2023 Abdominal discomfort (ICD-10 - R10.9) Venipuncture right AC with 23G butterfly needle. Pt tolerated well. Millie Duong MA 09/13/2023 Benign prostatic hyperplasia with lower urinary tract symptoms (ICD-10 - N40.1) 11/17/2023 intermediate frame tender (current) use of other agents affecting estrogen receptors and estrogen levels (ICD-10 - Z79.818) 09/17/2023 Numbness and tinglin g of foot (ICD-10 - R20.2) 09/14/2023 Benign prostatic hyperplasia with lower urinary tract symptoms (ICD-10 - N40.1) 09/17/[address] Jez Vance by Kenny Sy, [employer] biomedical service engineer, on 09/17/2023. I, Dr. Jez Vance, have personally reviewed and agreed with the information entered by the scribe. 11/16/[address] Jez Vance by Kenny Sy [employer] biomedical service engineer, on 11/16/2023. I, Dr. Jez Vance, have personally reviewed and agreed with the information entered by the scribe. 11/17/2023 Other Left ac venipuncture done with 23 g needle. Successful first attempt. Pt tolerated it well. Bandaid applied Lab sent to [facility]. 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
--- OUTSIDE RECORDS SUMMARY | 2023-12-17 01:44 | XMS_ITS | Clinical Summary ---
Author Organization [facility] Address [address] [place] [address] Care Team Providers Care Cuff Matcher Name Role Phone Jez Vance MD Primary Care Provider [phone] Encounters Date Type Department Care Team Description 12/03/2023 Lab Requisition [facility] Pathology & Laboratory Medicine - [address] [address] Outr Resulting Lab, Provider from Last 3 Months Social History Tobacco Use Types Packs/Day Years [...] Screening 06/22/2007 COVID-19 Vaccine ( season) 2023 Procedures Procedure Name Priority Date/Time Associated Diagnosis Comments CA 19-9 Routine 12/03/2023 7:10 EDT from Last 3 Months Results * (ABNORMAL) CA 19-9 (NEW SIEMENS METHOD IN USE 02/19/15) (12/03/2023 7:10 EDT) CA 19-9 104(H) <35 U/mL 12/03/2023 20:07 EDT [facility] Comment: NOTE: Serum CA 19-9 concentration should not be interpreted as absolute evidence for the presence or absence of malignant disease. Assayed on Siemens ADVIA Centaur XPT using chemiluminescent technology. ??Values obtained by using different assay methods cannot be used interchangeably. Blood VENOUS BLOOD / Unknown 12/03/2023 7:10 EDT 12/03/2023 16:46 EDT Provider Outr Resulting Lab CHEMISTRY & BLOOD GAS ORDERABLES [facility] [address] [place] [address] from Last 3 Months Care Teams Cuff Matcher Relationship Specialty Start Date End Date Jez Vance MD [address] [place] [id number] PCP - General 08/20/14
--- OUTSIDE RECORDS SUMMARY | 2023-12-17 01:44 | XMS_ITS | Continuity of Care Document ---
Author Organization [facility] Address [address] [place] [address] Care Team Providers Care Professor Of History Name Role Phone Jez Vance Primary Care Physician Elena Nunes Unavailable Unavailable Encounter [facility] [id number] Date(s): 11/24/23 - 11/24/[address] [address] Discharge Disposition: Home or Self Care Attending Physician: Jez Vance Admitting Physician: Jez Vance Referring Physician: Jez Vance Allergies, Adverse Reactions, Alerts Substance Criticality Severity Reaction Reaction Severity Status rosuvastatin Unable to assess criticality Unknown Muscle ache Active Pollen Unable to assess criticality Unknown Active Assessment and Plan Future Scheduled Tests Laboratory* CBC w/ Diff 11/23/23 * CBC w/ Diff 11/23/23 * CBC w/ Diff 12/07/23 * CBC w/ Diff 12/21/23 * CBC w/ Diff 01/04/24 * CBC w/ Diff 01/18/24 * CBC w/ Diff 02/01/24 * CBC w/ Diff 02/15/24 * CBC w/ Diff 02/29/24 * CBC w/ Diff 03/14/24 * CBC w/ Diff 03/28/24 * CBC w/ Diff 04/11/24 * CBC w/ Diff 04/25/24 * Comprehensive Metabolic Panel 11/23/23 * Comprehensive Metabolic Panel 12/07/23 * Comprehensive Metabolic Panel 12/21/23 * Comprehensive Metabolic Panel 01/04/24 * Comprehensive Metabolic Panel 01/18/24 * Comprehensive Metabolic Panel 02/01/24 * Comprehensive Metabolic Panel 02/15/24 * Comprehensive Metabolic Panel 02/29/24 * Comprehensive Metabolic Panel 03/14/24 * Comprehensive Metabolic Panel 03/28/24 * Comprehensive Metabolic Panel 04/11/24 * Comprehensive Metabolic Panel 04/25/24 * Comprehensive Metabolic Panel 11/23/23 * CA 19-9 [facility] 11/23/23 * [place] 19[place]9 [facility] [place]/07/23 * [place] 19[place]9 [facility] [place]/21/23 * [place] 19-9 [facility] 01[facility]04/24 * [place] 19-9 [facility] 01/18/24 * [place] 19-9 [facility] 02/01/24 * [place] 19-9 [facility] 02/15/24 * [place] 19-9 [facility] 02/29/24 * [place] 19-9 [facility] 03/14/24 * CA 19-9 [facility] 03/28/24 * CA 19-9 [facility] 04/11/24 * CA 19-9 [facility] 04/25/24 * PSA (Ultrasensitive), Total and Free [facility] 11/23/23 * Testosterone Level Total [facility] 11/23/23 Radiology* MRI Abdomen w/ + w/o Contrast [...] pruritus, # 60 tab, 1 Refill(s), Pharmacy: [facility], 177.8, cm, 10/21/23 14:04:00 EDT, Height, 91.08, kg, 10/21/23 14:06:00 EDT,Weight Dosing Start Date: 10/21/23 Status: Ordered hydrOXYzine hydrochloride 25 mg oral tablet 25 mg = 1 tab, Oral, Daily, Before going to bed, # 30 tab, 0 Refill(s), Pharmacy: [facility], 177.8, cm, 10/21/23 14:04:00 EDT, [...] # 90 tab, 0 Refill(s), Pharmacy: [facility], 177.8, cm, 10/21/23 14:04:00 EDT, [...] is bowel changes in past 2-3 weeks 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 Social History Social History Type Response Tobacco Never tobacco user T obacco Use:. 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
--- OUTSIDE RECORDS SUMMARY | 2023-12-17 01:44 | XMS_ITS | Continuity of Care Document ---
Author Organization [facility] Address [address] [place] [address] Care Team Providers Care Welder Tack Name Role Phone Jez Vance Primary Care Physician Encounter [facility] [id number] Date(s): 10/21/23 - 10/21/[address] Encounter Diagnosis Pancreatic mass(Discharge Diagnosis) - 10/21/23 Weight loss(Discharge Diagnosis) - 10/21/23 Pruritic condition(Discharge Diagnosis) - 10/21/23 Abdominal pain(Discharge Diagnosis) - 10/21/23 Discharge Disposition: Home or Self Care Attending Physician: Brielle Lowry V Admitting Physician: Brielle Lowry V Referring Physician: Jez Vance Allergies, Adverse Reactions, [...] pruritus, # 60 tab, 1 Refill(s), Pharmacy: [facility], 177.8, cm, 10/21/23 14:04:00 EDT, Height, 91.08, kg, 10/21/23 14:06:00 EDT,Weight Dosing Start Date: 10/21/23 Status: Ordered hydrOXYzine hydrochloride 25 mg oral tablet 25 mg = 1 tab, Oral, Daily, Before going to bed, # 30 tab, 0 Refill(s), Pharmacy: [facility], 177.8, cm, 10/21/23 14:04:00 [...] TID, # 90 tab, 0 Refill(s), Pharmacy: [facility], 177.8, cm, 10/21/23 14:04:00 [...] is 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 Results Laboratory List Name Date Amylase Level 10/21/23 [place] 19-[place] [facility] [place] 10/21/23 CBC w/ Diff 10/21/23 Comprehensive Metabolic Panel (CMP) Lipase Level 10/21/23 Automated Diff 10/21/23 Bilirubin Direct 10/21/23 Most recent to oldest [Reference Range]: 1 WBC [4.80-10.80 x10^3/mcL] 4.74 x10^3/mc L *LOW* (10/21/23 3:09 PM) RBC [4.20-5.90 x10^6/mcL] 4.21 x10^6/mcL (10/21/23 3:09 PM) Neutro Auto [40.0-74.0 /100(WBCs)] 66.1 /100(WBCs) (10/21/23 3:09 PM) Lymph Auto [19.0-48.0 /100(WBCs)] 19.8 / 100(WBCs) (10/21/23 3:09 PM) [place] Auto [3.0-10.0 /100(WBCs)] 10.5 /10 0(WBCs) *HI* (10/21/23 3:09 PM) Basophil Auto [0.00-2.00 /100(WBCs)] 0.2 0 /100(WBCs) (10/21/23 3:09 PM) BUN [8.0-23.0 mg/dL] 18.7 mg/dL (10/21/23 3:09 PM) Glucose Level [70-100 mg/dL] 223 mg/dL *HI* (10/21/23 3:09 PM) Potassium Level [3.5-5.0 mmol/L] 2.9 mmo l/L 1 *CRIT* (10/21/23 3:09 PM) Baso Absolute [0.00-0.20 x10^3/mcL] 0.01 x10^3/mcL (10/21/23 3:09 PM) MCV [80.0-97.0 fL] 92.2 fL (10/21/23 3:09 PM) AST [10-50 unit/L] 276 unit/L *HI* (10/21/23 3:09 PM) Amylase Level [28-100 unit/L] 45 unit/L (10/21/23 3:09 PM) ALT [5-55 unit/L] 670 unit/L *HI* (10/21/23 3:09 PM) MCHC [33.0-36.0 g/dL] 35.3 g/dL (10/21/23 3:09 PM) Sodium Level [136-145 mmol/L] 134 mmol/L *LOW* (10/21/23 3:09 PM) Lymph Absolute [1.20-3.40 x10^3/mcL] 0.9 4 x10^3/mcL *LOW* (10/21/23 3:09 PM) Hct [40.0-50.0 %] 38.8 % *LOW* (10/21/23 3:09 PM) Lipase Level [13-60 unit/L] 75 unit/L *HI* (10/21/23 3:09 PM) Calcium Level [8.8-10.2 mg/dL] 9.6 mg/dL (10/21/23 3:09 PM) [place] Absolute [0.11-0.70 x10^3/mcL] 0.50 x10^3/mcL (10/21/23 3:09 PM) Albumin Level [3.5-5.2 g/dL] 4.2 g/dL (10/21/23 3:09 PM) Protein Total [6.1-8.0 g/dL] 6.5 g/dL (10/21/23 3:09 PM) MCH [27.5-32.1 pg] 32.5 pg *HI* (10/21/23 3:09 PM) Neutro Absolute [1.20-6.70 x10^3/mcL] 3. 13 x10^3/mcL (10/21/23 3:09 PM) Bilirubin Total [<=1.20 mg/dL] 6.07 mg/d L *HI* (10/21/23 3:09 PM) Hgb [13.5-17.5 g/dL] 13.7 g/dL (10/21/23 3:09 PM) Alk Phos [40-129 unit/L] 364 unit/L *HI* (10/21/23 3:09 PM) MPV [6.0-10.0 fL] 10.6 fL *HI* (10/21/23 3:09 PM) Bilirubin Direct [0.0-0.3 mg/dL] 5.0 mg/ dL *HI* (10/21/23 3:09 PM) Platelets [150-400 x10^3/mcL] 223 x10^3/ mcL (10/21/23 3:09 PM) CO2 [22-29 mmol/L] 28 mmol/L (10/21/23 3:09 PM) Eos Absolute [0.00-0.70 x10^3/mcL] 0.15 x10^3/mcL (10/21/23 3:09 PM) eGFR Non-AA [>=60 mL/min/1.73 m2] 82 mL/ min/1.73 m2 (10/21/23 3:09 PM) eGFR AA [>=60 mL/min/1.73 m2] 100 mL/min /1.73 m2 (10/21/23 3:09 PM) Chloride Level [98-107 mmol/L] 94 mmol/L *LOW* (10/21/23 3:09 PM) A/G Ratio 1.8 *NA* (10/21/23 3:09 PM) BUN/Creat Ratio 21 ratio *NA* (10/21/23 3:09 PM) Imm Gran Absolute [0.00-0.04 x10^3/mcL] 0.01 x10^3/mcL (10/21/23 3:09 PM) Imm Gran Auto 0.2 /100(WBCs) *NA* (10/21/23 3:09 PM) Creatinine Level [0.70-1.20 mg/dL] 0.89 mg/dL 2 (10/21/23 3:09 PM) RDW-CV [11.6-14.8 %] 12.8 % (10/21/23 3:09 PM) [place] 19-[place] [facility] [<=35.0] 79.0 3 *HI* (10/21/23 3:09 PM) Anion Gap [5-15 mmol/L] 15 mmol/L (10/21/23 3:09 PM) Eos, Auto [1.0-7.0 /100(WBCs)] 3.2 /100( WBCs) (10/21/23 3:09 PM) 1Result Comment: Critical value verified and results called to Maritza Moar and read back at 1646_ by tech: gar_ 2Result Comment: Specimen icteric; result may be invalid. Interpret with caution. 3Result Comment: This result was generated using a Doreen Danis immunoassay. Results obtained from other methods or manufacturers cannot be used interchangeably with this method. Test performed at: [facility] [place] [address] Social History Social History Type Response Tobacco Never tobacco user T obacco Use:. Sex Male Patient Care team information Care Team Personnel Name: Jez Vance Position: No Access Member Role: Primary Care Physician Address: Address: [address] [place] [address]- Care Team Related Persons Name: COLIN, LIAM Address: Home [address], [id number]
--- OUTSIDE RECORDS SUMMARY | 2023-12-17 01:44 | XMS_ITS ---
Author Organization [facility] Address [address] [place], [place] [id number] Care Team Providers Care Supervisor Vat House Name Role Phone Rajiv MERCEDES, Jez Primary Care Provider [phone] REASON FOR VISIT heart monitor Social History Sex Assigned At : Social History Observation Description Sex Assigned At Male Encounters Encounter Location Date Provider Diagnosis [address] [address] 11/22/2023 Jez Vance MD Plan Of Treatment No Information Progress Notes * [place] SHAWOB:1940 (83 yo M)Acc No.[id number]:11/22/2023 Patient:?Benny SHAW :1940???Age:83 Y???Sex:Male Address:[address] [place] [address] * true * Date:? Generated for Kizzyi anjelica/Allyson/eTransmitting on:?12/17/2023 01:41 AM EDT
--- OUTSIDE RECORDS SUMMARY | 2023-12-17 01:44 | XMS_ITS | Referral Summary ---
Author Organization [facility] Address [address] [place] [address] Care Team Providers Care Sewing Machine Operator Name Role Phone Jez Vance MD Primary Care Provider [phone] Encounters Date Type Department Care Team Description 12/03/2023 Lab Requisition [facility] Pathology & Laboratory Medicine - [address] [address] Outr Resulting Lab, Provider from Last 3 Months Social History Tobacco Use Types Packs/Day Years Used Date Smoking Tobacco: Never Assessed Sex and Gender Information Value Date Recorded Sex Assigned at Not on file Gender Identity Not on file Sexual Orientation Not on file Plan of Treatment Not on file Procedures Procedure Name Priority Date/Time Associated Diagnosis Comments CA 19-9 Routine 12/03/2023 7:10 EDT from Last 3 Months Results * (ABNORMAL) CA 19-9 (NEW SIEMENS METHOD IN USE 02/19/15) (12/03/2023 7:10 EDT) CA 19-9 104(H) <35 U/mL 12/03/2023 20:07 EDT [facility] Comment: NOTE: Serum CA [...] Resulting Lab CHEMISTRY & BLOOD GAS ORDERABLES [facility] [address] [place], [place] [address] from Last 3 Months Care Teams Sewing Machine Operator Relationship Specialty Start Date End Date Jez Vance MD [address] [place] [address] PCP - General 08/20/14
--- OUTSIDE RECORDS SUMMARY | 2023-12-17 01:44 | XMS_ITS | Continuity of Care Document ---
Author Organization [facility] Address [address] [place] [address] Care Team Providers Care Lunch Counter Manager Name Role Phone Jez Vance Primary Care Physician Elena Nunes Unavailable Unavailable Encounter [facility] [id number] Date(s): 11/22/23 - 11/22/[address] [address] Discharge Disposition: Home or Self Care Attending Physician: Jez Vance Admitting Physician: Jez Vance Referring Physician: Jez Vance Allergies, Adverse Reactions, Alerts Substance Criticality Severity Reaction Reaction Severity Status rosuvastatin Unable to assess criticality Unknown Muscle ache Active Pollen Unable to assess criticality Unknown Active Assessment and Plan Future Appointments Future Scheduled Tests Radiology* MRI Abdomen w/ + w/o Contrast 10/21/23 * US Echo 2D Comp w/ Color Flow Doppler 11/24/23 Medications Bev Allergy 60 mg oral tablet [...] pruritus, # 60 tab, 1 Refill(s), Pharmacy: [facility], 177.8, cm, 10/21/23 14:04:00 EDT, Height, 91.08, kg, 10/21/23 14:06:00 EDT,Weight Dosing Start Date: 10/21/23 Status: Ordered hydrOXYzine hydrochloride 25 mg oral tablet 25 mg = 1 tab, Oral, Daily, Before going to bed, # 30 tab, 0 Refill(s), Pharmacy: [facility], 177.8, cm, 10/21/23 14:04:00 [...] TID, # 90 tab, 0 Refill(s), Pharmacy: [facility], 177.8, cm, 10/21/23 14:04:00 [...] is bowel changes 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 Social History Social History Type Response Tobacco Never tobacco user T obacco Use:. Sex Male Cardiology * Gareth Botello: PERFORM Event Display: Holter Monitor Authored Date: [id number] Ziopatch was placed today and will be worn for [address] Littlejohn was assigned for interpretation. Electronically Signed on 11/22/2023 14:18 EDT Gareth Botello Patient Care team information Care Team Personnel Name: Jez Vance Position: No Access Member Role: Primary Care Physician Address: Address: [address] [place] [address]- Name: Elena Nunes Position: Ambulatory - End Finder Forming Department Member Role: End Finder Forming Department Care Team Related Persons Name: LIAM SHAW Address: Home [address] [facility], [id number]
--- OUTSIDE RECORDS SUMMARY | 2023-12-17 01:44 | XMS_ITS | Encounter Summary ---
Author Organization [facility] Address [address] [place] [address] Care Team Providers Care String Cutter Name Role Phone Jez Vance MD Primary Care Provider [phone] Encounter Details Date Type Department Care Team (Late st Contact Info) Description 12/03/2023 Lab Requisition [facility] Pathology & Laboratory Medicine - [address] [address] Outr Resulting Lab, Provider Social History Tobacco Use Types Packs/Day Years [...] Comments CA 19-9 Routine 12/03/2023 7:10 EDT documented in this encounter Results * (ABNORMAL) CA 19-9 (NEW SIEMENS METHOD IN USE 02/19/15) (12/03/2023 7:10 EDT) CA 19-9 104(H) <35 U/mL 12/03/2023 20:07 EDT [facility] Comment: NOTE: Serum CA 19-9 concentration should not be interpreted as absolute evidence for the presence or absence of malignant disease. Assayed on Siemens ADVIA Centaur XPT using chemiluminescent technology. ??Values obtained by using different assay methods cannot be used interchangeably. Blood VENOUS BLOOD / Unknown 12/03/2023 7:10 EDT 12/03/2023 16:46 EDT Provider Outr Resulting Lab CHEMISTRY & BLOOD GAS ORDERABLES [facility] [address] [place] [address] documented in this encounter Visit Diagnoses Not on filedocumented in this encounter Care Teams String Cutter Relationship Specialty Start Date End Date Jez Vance MD [address] [place] [address] PCP - General 08/20/14 documented as of this encounter
--- OUTSIDE RECORDS SUMMARY | 2023-12-17 01:44 | XMS_ITS | Encounter Summary ---
Author Organization [facility] Address [address] [place] [address] Care Team Providers Care Sustainable Design Consultant Name Role Phone Devorah Flowers MD Primary Care Provider [phone] Encounter Details Date Type Department Care Team (Late st Contact Info) Description 08/14/2009 Results Only [facility] - [facility] [place] [address] [place] [phone] Jair Thomas MD [address] [place] [address] Social History Tobacco Use Types Packs/Day [...] COLIN, KIA L ? Accession #: ? [id number] ? : ? 1940 (Age: 69) ??M [...] EDT Jair Thomas MD PATHOLOGY ORDERABLES [facility] [facility] [address] [place] [address] documented in this encounter Visit Diagnoses Not on filedocumented in this encounter Care Teams Sustainable Design Consultant Relationship Specialty Start Date End Date Devorah Flowers MD [address] [place] [address] PCP - General 08/15/09 08/19/14 documented as of this encounter
--- OUTSIDE RECORDS SUMMARY | 2023-12-17 01:44 | XMS_ITS | Continuity of Care Document ---
Author Organization [facility] Address [address] [place] [address] Care Team Providers Care Ramp Service Employee Name Role Phone Adrienne Singh Primary Care Physician [phone] Encounter [facility] [id number] Date(s): 08/20/23 - 08/20/[address] [address] Discharge Disposition: Home or Self Care Attending Physician: Adrienne Singh Admitting Physician: Adrienne Singh Referring Physician: Adrienne Singh Results Radiology Reports * Exam Date Time Procedure Performing Provider Status 08/20/23 10:14 AM BD Bone Density DEXA Axial Skeleton Regine Orozco; Auth (Verified) Notes: (BD Bone Density DEXA Axial Skeleton) Reason For Exam: residential (current) use of other agents affecting estrogen receptors and estrogen levels BD Bone Density DEXA Axial Skeleton EXAMINATION: BD Bone Density DEXA Axial Skeleton CLINICAL HISTORY: residential (current) use of other agents affecting estrogen receptors and estrogen levels TECHNIQUE: Scans were acquired at the lumbar spine, left hip. COMPARISON: None. FINDINGS: Lowest T score at a diagnostic region of interest: T score: -0.9, JEFF:Femoral neck, WHO diagnosis: Normal IMPRESSION: Normal. FRAX ten-year fracture risk: Major osteoporotic fracture: 6.2%. Hip fracture: 1.9%. Thank you for letting us participate in the care of this patient. If you are a health care provider and have any questions regarding this report, please contact the number below. For patients who have questions please contact the health progressive care unit registered nurse that requested your imaging first. Electronically signed by: Milton Klein MD, [facility] ([phone]), at 08/20/2023 1:04 PM Social History Social History Type Response Sex Male Patient Care team information Care Team Personnel Name: Adrienne Singh Position: No Access Member Role: Primary Care Physician Address: Address: [address] [place] [address] [place]
--- OUTSIDE RECORDS SUMMARY | 2023-12-17 01:44 | XMS_ITS ---
Author Organization [facility] Address [address] [place], [place] [id number] Care Team Providers Care Stud Sheep Farmer Name Role Phone Rajiv MERCEDES, Jez Primary Care Provider [phone] Reason For Referral Reason FAXED TO URGENT P CL 12/15/23 LP. Please eval and treat. Please contact our office within 1-2 days for this urgent referral's scheduled appointment. Diagnosis 1 PSVT (paroxysmal sup raventricular tachycardia) (I47.10) Referral Organization [facility] Referring Provider First Name Jez Referring Provider Last Name Rajiv Gates Referring Provider Speciality Family Med icine Referred Provider [facility], Cardiology Referred Provider Specialty Cardiology General Notes Catalina Kaiser 11/17 12:03:58 PM >Pt needs cardiac clearance for Whipple procedure in Feb at [facility]. Pt has been having PSVT. Needs to see cardiology to see if meds are needed prior to surgery. Has recent ECHO and Zio Reports (attached)., Catalina Kaiser 12/15/2023 12:05:31 PM >FAXED TO URGENT [facility] Referral Priority Urgent REASON FOR VISIT Cardiology Referral Social History Sex Assigned At : Social History Observation Description Sex Assigned At Male Problems Problem Type SNOMED Code ICD Code Onset Dates Problem Status W/U Status Risk Notes Problem Paroxysmal SVT (supraventricula r tachycardia) (I47.10) Active confirmed Encounters Encounter Location Date Provider Diagnosis [facility] [address] [place] [address] 12/14/2023 Jez Vance MD PSVT (paroxysmal supraventricular tachycardia) I47.10 Assessments Encounter Date Diagnosis (ICD Code) Assessment Notes Treat ment Notes Treatment Clinical Notes 12/14/2023 PSVT (paroxysmal supraventricular tachycardia) (ICD-10 - I47.10) Plan Of Treatment Referrals Referral Date Details 12/15/2023 12/15/2023, FAXED TO URGENT [facility] 12/15/23 LP. Please eval and treat. Please contact our office within 1-2 days for this urgent referral's scheduled appointment., Cardiology [facility] Progress Notes * Brooklyn SHAWOB:1940 (83 yo M)Acc No.[id number]:12/14/2023 Patient:?Benny SHAW :1940???Age:83 Y???Sex:Male Address:[facility] [address], [place] [address] Subjective: * Chief Complaints: * ???Cardiology Referral * Medical History:? * Surgical History:? * Hospitalization/Major Diagno stic Procedure:? * Medications:? Objective: * Vitals:? * Physical Examination:? Assessment: * Assessment: 1.?PSVT (paroxysmal supraven tricular tachycardia) - I47.10 (Primary)??? Plan: * Treatment: * Procedure Codes:? * true * Date:? Generated for Jovanna dejesus/Allyson/eTransmitting on:?12/17/2023 01:40 AM EDT Consultation Request Notes Referral Date Referring Provider Referred Provider Not es 12/15/2023 Jez Vance MD [facility], Cardiology FA XED TO URGENT PCL 12/15/23 LP. Please eval and treat. Please contact our office within 1-2 days for this urgent referral's scheduled appointment.
--- OUTSIDE RECORDS SUMMARY | 2023-12-17 01:44 | XMS_ITS | Encounter Summary ---
Author Organization [facility] Address [address] [place] [address] Care Team Providers Care Wild Life Photographer Name Role Phone Jez Vance MD Primary Care Provider +1 -[phone] Encounter Details Date Type Department Care Team (Late st Contact Info) Description 07/06/[address] [facility] Pathology & Laboratory Medicine - [address] [address] Jesus Cuellar MD [address] [place] [address] [place] [phone] Encounter for other general examination Social History [...] management options, if applicable. 07/09/2022 13:43 EDT [facility] Final Diagnosis A. PROSTATE, RIGHT BASE LATERAL, BIOPSY (1): - Prostatic adenocarcinoma, acinar type, involving 1 of 1 core; 0.5% involvement. - Core 1 (18.4 mm): Winthrop patterns 4 and 3, 0.1 mm B. [...] 1 (Leslie score <=6) Grade Group 2 (Winthrop score 3+4=7) Grade Group 3 (Leslie score 4+3=7) Grade Group 4 (Leslie score 8) Grade Group 5 (Winthrop scores 9-10) * Taya SARABIA et al: A Contemporary Prostate Cancer Grading System: A Validated Alternative to the Leslie Score. Eur Uro 2015 69(3):428-435 07/09/2022 13:43 [facility] Attestation By the signature below, the attending physician certifies that they have 1) personally conducted a gross and/or microscopic examination of the described specimen(s), and/or personally interpreted the results of laboratory testing of the described specimen(s), and 2) personally rendered or confirmed the above diagnosis. 07/09/2022 13:43 [facility] at 1343 Clinical History Abnormal prostate MRI, elevated PSA 07/09/2022 13:43 [facility] Gross Description A. Received [...] L1. ISMAEL SERRATO(ASCP) 07/07/2022 9:01 07/09/2022 13:43 [facility] Performing Lab [facility] 07/09/2022 13:43 [facility] Scanned Images 07/09/2022 13:43 [facility] Tissue ENTIRE APEX OF [...] EDT Jesus Cuellar MD PATHOLOGY ORDERAB LES [facility] [address] [place] [address] documented in this encounter Visit Diagnoses Diagnosis Encounter for other general examination documented in this encounter Care Teams Wild Life Photographer Relationship Specialty Start Date End Date Jez Vance MD NPI: [id number] [place] [id number] PCP - General 08/20/14 documented as of this encounter
--- OUTSIDE RECORDS SUMMARY | 2023-12-17 01:44 | XMS_ITS | Encounter Summary ---
Author Organization [facility] Address [address] [place] [address] Care Team Providers Care Diamond Sorter Name Role Phone Devorah Flowers MD Primary Care Provider +1 [phone] Encounter Details Date Type Department Care Team (Late st Contact Info) Description 08/15/2014 Results Only [facility] [phone] Jair Thomas MD [address] [place] [address] Social History Tobacco Use Types Packs/Day [...] ? KIA SHAW ? Accession #: ? [id number] ? : ? 1940 (Age: 74) ??M [...] Guillen 08/16/2014 10:38 AM End of Report [facility] 08/15/2014 9:09 EDT 08/16/2014 9:09 EDT Jair Thomas MD PATHOLOGY ORDERABLES [facility] [address] [place] [address] documented in this encounter Visit Diagnoses Not on filedocumented in this encounter Care Teams Diamond Sorter Relationship Specialty Start Date End Date Devorah Flowers MD [address] [place] [phone] PCP - General 08/15/09 08/19/14 documented as of this encounter
--- OUTSIDE RECORDS SUMMARY | 2023-12-17 01:44 | XMS_ITS | Continuity of Care Document ---
Author Organization [facility] Address [address] [place] [id number] Care Team Providers Care Rug Dry Room Attendant Name Role Phone Jez Vance Primary Care Physician Elena Nunes Unavailable Unavailable Encounter [facility] [id number] Date(s): 10/22/23 - 10/22/[address] [address] Discharge Disposition: Home or Self Care Allergies, Adverse Reactions, Alerts Substance Criticality Severity [...] pruritus, # 60 tab, 1 Refill(s), Pharmacy: [id number], 177.8, cm, 10/21/23 14:04:00 EDT, Height, 91.08, kg, 10/21/23 14:06:00 EDT,Weight Dosing Start Date: 10/21/23 Status: Ordered hydrOXYzine hydrochloride 25 mg oral tablet 25 mg = 1 tab, Oral, Daily, Before going to bed, # 30 tab, 0 Refill(s), Pharmacy: [facility] [id number], 177.8, cm, 10/21/23 14:04:00 [...] TID, # 90 tab, 0 Refill(s), Pharmacy: [facility], 177.8, cm, 10/21/23 14:04:00 [...] is 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 Social History Social History Type Response Tobacco Never tobacco user T obacco Use:. Sex Male Patient Care team information Care Team Personnel Name: Jez Vance Position: No Access Member Role: Primary Care Physician Address: Address: [address] [place] [id number] Name: Elena Nunes Position: Ambulatory - Road Roller Operator Hot Mix Member Role: Road Roller Operator Hot Mix Care Team Related Persons Name: LIAM SHAW Address: Home [address] [place] [address], [id number]
--- OUTSIDE RECORDS SUMMARY | 2023-12-17 01:45 | XMS_ITS | Encounter Summary ---
Author Organization [facility] Address [facility] [place] [address] Care Team Providers Care Bell Hole Digger Name Role Phone Jez Vance MD Primary Care Provider +1 [phone] Encounter Details Date Type Department Care Team (Late st Contact Info) Description 11/17/2023 Orders Only Hematology [place] [address] Antonio Brownlee MD [facility] [place] [address] Social History Tobacco Use Types Packs/Day Years [...] from your doctor or pharmacy? Never 11/04/2023 [facility] Utilities Answer Date Recorded In the [...] a long term (including now)? No 08/06/2022 Housing Stability Vital Sign Answer Omari e Recorded In the last 12 months, was t here a time when you were not able to pay the mortgage or rent on time? No 11/04/2023 In the past 12 months, how m any times have you moved where you were living? 1 11/04/2023 At any time in the past 12 m [facility], were you homeless or living in a long term (including now)? No 11/04/2023 DH IPV Inpatient [...] Care Team (Late st Contact Info) Description 12/17/2023 8:30 AM EDT Office Visit Hematology/Oncology at [address] [phone] Antonio Brownlee MD [facility] [place] [address] [address] HEMATOLOGY AND ONCOLOGY [place], [place] [phone] 12/17/2023 9:00 AM EDT Infusion Hematology Oncology at [address] [address] 12/17/2023 10:00 AM EDT Clinical Support Hematology/Oncology at [address] [phone] [facility] DR [place] [address] 12/24/2023 10:40 AM EST Office Visit Cardiology at [address] [phone] Cory Sellers MD [facility] [place] [address] 12/30/2023 9:00 AM EST Office Visit Hematology/Oncology at [address] [phone] Antonio Brownlee MD [facility] [place] [address] Fani Haskins, [address] HEMATOLOGY AND ONCOLOGY [place], [place] [phone] 12/30/2023 9:30 AM EST Infusion Hematology Oncology at [address] [phone] 04/04/2024 9:45 AM EST TH Visit (TeleHealth) Radiation Oncology at [address] [phone] Adrienne Singh PA [facility] DR [place] [address] documented as of this encounter Visit Diagnoses Not on filedocumented in this encounter Care Teams Bell Hole Digger Relationship Specialty Start Date End Date Jez Vance MD [address] [place] [address] PCP - General 01/07/10 documented as of this encounter
--- OUTSIDE RECORDS SUMMARY | 2023-12-17 01:45 | XMS_ITS | Encounter Summary ---
Author Organization [facility] Address [facility] [place] [address] Care Team Providers Care Nursing Admin Name Role Phone Jez Vance MD Primary Care Provider +1 [phone] Encounter Details Date Type Department Care Team (Late st Contact Info) Description 12/03/2023 8:00 AM EDT Office Visit Hematology/Oncology at [address] [phone] Antonio Brownlee MD [facility] [place] [address] Fani Haskins [address] HEMATOLOGY AND ONCOLOGY [place], [place] [phone] Malignant neoplasm of head of pancreas Social [...] from your doctor or pharmacy? Never 11/04/2023 [facility] Utilities Answer Date [...] Sign Reading Time Taken Comments Blood Pressure 122/55 12/03/2023 7:48 AM EDT Pulse 90 12/03/2023 7:48 AM EDT Temperature 36.6 ??C (97.9 ??F) 12/03/2023 7:48 AM ED T Respiratory Rate 18 12/03/2023 7:48 AM EDT Oxygen Saturation 99% 12/03/2023 7:48 AM EDT Inhaled Oxygen Concentration - - Weight 84.1 kg (185 lb 6.4 oz) 12/03/2023 7:48 A M EDT Height 177.8 cm (5' 10) 12/03/2023 7:48 AM EDT Body Mass Index 26.6 12/03/2023 7:48 AM EDT documented in this encounter Progress Notes * Antonio Brownlee MD - 12/03/2023 8:00 AM EDT Subjective Patient ID: Benny Zurita [...] results of restaging evaluation. E. Diagnostic lap 11/12/23 - Findings: No metastatic disease. Small umbilical hernia with omentum. F. 11/19/23 - Began therapy with mFolfirinox 2. Prostate cancer Diagnosed in 06/2022 High-risk prostate cancer (Stage IIC: cT1c, cN0, cM0; Leslie 4+4, PSA 11.9 S/p radiation, completed in 11/2023 Concurrent ADT 3. HTN 4. HLD 5. Asthma 6. MHA's 7. Genetic testing 10/2023 - Result: [employer]'s CancerNext-Expanded +Yuanpei Translation Panel showed no pathogenic mutations were detected. HPI Benny Zurita is seen in f/u of pancreatic cancer. The history is summarized above. On 11/19/23 he began neoadjuvant therapy with mFolfirinox, s/p 1 cycle Benny is accompanied to clinic today by his Angela. He tolerated the first cycle of therapy well. He had slight nausea but did not need to take anything for it. His appetite is good. His weight is stable. He is taking creon (2 with a meal and 1 with a snack, 3 per day) and thinks that is helping. He has some gassiness and loose stools. No pain. He tires easily but has remained active. No problems with cold sensitivity. 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 Coordination: Coordination normal. Labs: WBC/ANC - 4., Hgb/Hct - 12.6/36, Plts - 172,000. BUN/Cr - 10/0.7. Gluose - 166, Alk phos - 122, alb - 3.1. Lytes and LFTs o/w unremarkable CA 19-9 12/03/23 11/19/23 181 11/09/23 110 PGX - DPYD *1/*2A; UGT1A1 - *1/*28 (Recommended dosing - 50% dose reduction of 5FU; irinotecan - nodose change) Assessment and Plan Benny Zurita is 83 [...] I would plan for upfront dose reduction. PGX testing showed *1/*2A genotype. A 50% dose reduction of 5FU was recommended to start. UGT1A1 showed a *1/*28 genotype and no dosing action was recommended. He began chemotherapy with mFolfirinox on 11/19/23, s/p 1 cycle. The 5FU dose was reduced by 50% dueto DPYD abnormality. Irinotecan and oxaliplatin were reduced by 20% per provider discretion. He tolerated therapy well. We will increase the irinotecan and oxaliplatin to full dose and will keep the 5FU dose the same. We will see him in two weeks. He is being followed by our Clinical Dog Barber, Nadege Howell. I asked him to increase the creon to 3 with meals, 1 with snacks. documented in this encounter Plan of Treatment Upcoming Encounters Date Type Department Care Team (Late st Contact Info) Description 12/17/2023 8:30 AM EDT Office Visit Hematology/Oncology at [address] [phone] Antonio Brownlee MD [facility] [place] [address] [address] HEMATOLOGY AND ONCOLOGY [place], [place] [phone] 12/17/2023 9:00 AM EDT Infusion Hematology Oncology at [address] [phone] 12/17/2023 10:00 AM EDT Clinical Support Hematology/Oncology at [address] [phone] [facility] DR HEMATOLOGY [place] [address] 12/24/2023 10:40 AM EST Office Visit Cardiology at [address] [phone] Cory Sellers MD [facility] [place] [address] 12/30/2023 9:00 AM EST Office Visit Hematology/Oncology at [address] [phone] Antonio Brownlee MD [facility] [place] [address] HEMATOLOGY AND ONCOLOGY [place], [place] [phone] 12/30/2023 9:30 AM EST Infusion Hematology Oncology at [address] [phone] 04/04/2024 9:45 AM EST TH Visit (TeleHealth) Radiation Oncology at [address] [phone] Adrienne Singh PA [facility] DR HEMATOLOGY [place] [address] documented as of this encounter Visit Diagnoses Diagnosis 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
--- OUTSIDE RECORDS SUMMARY | 2023-12-17 01:45 | XMS_ITS | Encounter Summary ---
Author Organization [facility] Address [facility] [place] [address] Care Team Providers Care Contract Post Office Clerk Name Role Phone Jez Vance MD Primary Care Provider +1 [phone] Encounter Details Date Type Department Care Team (Late st Contact Info) Description 11/29/2023 Telephone Radiation Oncology at [address] [phone] Sapna Cox Social History Tobacco [...] from your doctor or pharmacy? Never 11/04/2023 [facility] Utilities Answer Date Recorded In the past 12 months has e [employer], gas, oil, or water [employer] threatened to shut off services in your [...] health care facility (including now)? No 08/06/2022 Housing Stability Vital Sign Answer Omari e Recorded In the last 12 months, was t here a time when you were not able to pay the mortgage or rent on time? No 11/04/2023 In the past 12 months, how m any times have you moved where you were living? 1 11/04/2023 At any time in the past 12 m [facility], were you homeless or living in a [place] health care facility (including now)? No 11/04/2023 DH IPV Inpatient [...] 8:30 AM EDT Office Visit Hematology/Oncology at [address] [phone] Antonio Brownlee MD [facility] [address] HEMATOLOGY AND ONCOLOGY [place], [place] [phone] 12/17/2023 9:00 AM EDT Infusion Hematology Oncology at [address] [phone] 12/17/2023 10:00 AM EDT Clinical Support Hematology/Oncology at [address] [phone] [facility] DR [place] [address] 12/24/2023 10:40 AM EST Office Visit Cardiology at [address] [phone] Cory Sellers MD [facility] [place] [address] 12/30/2023 9:00 AM EST Office Visit Hematology/Oncology at [address] [phone] Antonio Brownlee MD [facility] [place] [address] Fani Haskins [address] HEMATOLOGY AND ONCOLOGY [place], [place] [phone] 12/30/2023 9:30 AM EST Infusion Hematology Oncology at [address] [phone] 04/04/2024 9:45 AM EST TH Visit (TeleHealth) Radiation Oncology at [address] [phone] Adrienne Singh PA [facility] DR [place] [address] documented as of this encounter Visit Diagnoses Not on filedocumented in this encounter Care Teams Contract Post Office Clerk Relationship Specialty Start Date End Date Jez Vance MD [address] [place] [address] PCP - General 01/07/10 documented as of this encounter
--- OUTSIDE RECORDS SUMMARY | 2023-12-17 01:45 | XMS_ITS | Encounter Summary ---
Author Organization [facility] Address [facility] [place] [address] Care Team Providers Care Ice Delivery Driver Name Role Phone Jez Vance MD Primary Care Provider +1 [phone] Encounter Details Date Type Department Care Team [...] your doctor or pharmacy? Never 11/04/2023 [facility] Utilities Answer Date Recorded In the [...] in a intermediate (including now)? No 11/04/2023 IPV Inpatient Questions [...] AM EDT Office Visit Hematology/Oncology at [address] [phone] Antonio Brownlee MD [facility] [place] [address] Fani Haskins APRN [address] [place] [address] DR HEMATOLOGY AND ONCOLOGY [place], [place] [phone] 12/17/2023 9:00 AM EDT Infusion Hematology Oncology at [address] [phone] 12/17/2023 10:00 AM EDT Clinical Support Hematology/Oncology at [address] [phone] [facility] DR HEMATOLOGY [place] [address] 12/24/2023 10:40 AM EST Office Visit Cardiology at [address] [phone] Cory Sellers MD [facility] [place] [address] 12/30/2023 9:00 AM EST Office Visit Hematology/Oncology at [address] [phone] Antonio Brownlee MD [facility] [place] [address] Fani Haskins [address] HEMATOLOGY AND ONCOLOGY [place], [place] [phone] 12/30/2023 9:30 AM EST Infusion Hematology Oncology at [address] [phone] 04/04/2024 9:45 AM EST TH Visit (TeleHealth) Radiation Oncology at [address] [phone] Adrienne Singh PA [facility] HEMATOLOGY [place] [address] documented as of this encounter Visit Diagnoses Not on filedocumented in this encounter Care Teams Ice Delivery Driver Relationship Specialty Start Date End Date Jez Vance MD [address] [place] [address] PCP - General 01/07/10 documented as of this encounter
--- OUTSIDE RECORDS SUMMARY | 2023-12-17 01:45 | XMS_ITS | Encounter Summary ---
Author Organization [facility] Kody [place] [address] Care Team Providers Care Technician Terminal And Repeater Name Role Phone Jez Vance MD Primary Care Provider +1 [phone] Encounter Details Date Type Department Care Team (Latest Contact Info) Description 11/19/2023 10:30 AM EDT Clinical Support Hematology/Oncology at [address] [phone] Nadege Howell, PALLAVI [facility] DR [place] [address] Malignant neoplasm of head of pancreas Social [...] from your doctor or pharmacy? Never 11/04/2023 [facility] Utilities Answer Date Recorded In the past 12 months has [employer], gas, oil, or water [employer] threatened to shut off services in your [...] in the past 12 m [facility], were you homeless or living [...] on on 11/08 Social History: Lives in [place], [place]. 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 PMH: Prostate cancer (treated with [...] AM EDT Office Visit Hematology/Oncology at [address] [phone] Antonio Brownlee MD [facility] [place] [address] Fani Haskins APRN [address] [place] [address] DR HEMATOLOGY AND ONCOLOGY [place], [place] [id number] 12/17/2023 9:00 AM EDT Infusion Hematology Oncology at [address] [phone] 12/17/2023 10:00 AM EDT Clinical Support Hematology/Oncology at [address] [phone] [facility] [place] [address] 12/24/2023 10:40 AM EST Office Visit Cardiology at [address] [phone] Cory Sellers MD [facility] [place] [address] 12/30/2023 9:00 AM EST Office Visit Hematology/Oncology at [address] [phone] Antonio Brownlee MD [facility] [place] [address] Fani Haskins APRN [address] [place] [address] DR HEMATOLOGY AND ONCOLOGY [place], [place] [phone] 12/30/2023 9:30 AM EST Infusion Hematology Oncology at [address] [phone] 04/04/2024 9:45 AM EST TH Visit (TeleHealth) Radiation Oncology at [address] [phone] Adrienne Singh PA [facility] DR [place] [address] documented as of this encounter Visit Diagnoses Diagnosis 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
--- OUTSIDE RECORDS SUMMARY | 2023-12-17 01:45 | XMS_ITS | Encounter Summary ---
Author Organization [facility] Address [facility] [place] [address] Care Team Providers Care Sample Weaver Name Role Phone Jez Vance MD Primary Care Provider +1 [phone] Encounter Details Date Type Department Care Team [...] Never 11/04/2023 [facility] Utilities Answer Date Recorded In the [...] AM EDT Office Visit Hematology/Oncology at [address] [phone] Antonio Brownlee MD [facility] [place] [address] Fani Haskins APRN [address] [place] [address] DR HEMATOLOGY AND ONCOLOGY [place], [place] [phone] 12/17/2023 9:00 AM EDT Infusion Hematology Oncology at [address] [phone] 12/17/2023 10:00 AM EDT Clinical Support Hematology/Oncology at [address] [phone] [facility] DR [place] [address] 12/24/2023 10:40 AM EST Office Visit Cardiology at [address] [phone] Cory Sellers MD [facility] [place] [place] [address] 12/30/2023 9:00 AM EST Office Visit Hematology/Oncology at [address] [phone] Antonio Brownlee MD [facility] [place] [address] F[address] Haskins [address] HEMATOLOGY AND ONCOLOGY [place], [place] [phone] 12/30/2023 9:30 AM EST Infusion Hematology Oncology at [address] [phone] 04/04/2024 9:45 AM EST TH Visit (TeleHealth) Radiation Oncology at [address] [phone] Adrienne Singh PA [facility] [place] [address] documented as of this encounter Visit Diagnoses Not on filedocumented in this encounter Care Teams Sample Weaver Relationship Specialty Start Date End Date Jez Vance MD [address] [place] [address] PCP - General 01/07/10 documented as of this encounter
--- OUTSIDE RECORDS SUMMARY | 2023-12-17 01:45 | XMS_ITS | Clinical Summary ---
Author Organization [facility] Address One [facility] [place] [address] Care Team Providers Care Remelter Name Role Phone Jez Vance MD Primary Care Provider [phone] Allergies Active Allergy Reactions Criticality Noted Date [...] mouth daily. 90 tablet 3 10/30/2022 Active bxlbiv-secewxln-khw lase DR (Creon 24) 24,000-76,000 -120,000 unit [...] Encounters Date Type Department Care Team Description 12/17/2023 9:00 AM EDT Infusion Hematology Oncology at [address] [phone] 12/15/2023 Transcribe Orders eDH Incoming Referrals [phone] Jze Vance MD PSVT (paroxysmal supraventricular tachycardia) 12/10/2023 Travel 12/09/2023 10:00 AM EDT TH Visit (TeleHealth) Hematology/Oncol ogy at [address] [phone] Malignant neoplasm of head of pancreas 12/03/2023 9:00 AM EDT Clinical Support Hematology/Oncol ogy at [address] [phone] Malignant neoplasm of head of pancreas 12/03/2023 8:30 AM EDT Infusion Hematology Oncology at [address] [phone] Malignant neoplasm of head of pancreas; Malignant neoplasm of prostate 12/03/2023 8:00 AM EDT Office Visit Hematology/Oncol ogy at [address] [phone] Antonio Brownlee MD LaRoza, Stephanie A, APRN Malignant neoplasm of head of pancreas 12/03/2023 Travel 12/02/2023 Telephone Hematology [place] [phone] Kemal Matthews LGC 12/02/2023 Orders Only Hematology [place] [phone] Antonio Brownlee MD 11/30/2023 2:30 PM EDT TH Visit (TeleHealth) Radiation Oncology at [address] [phone] Adrienne Singh PA Malignant neoplasm of prostate (Primary Dx); Androgen deprivation therapy; S/P radiotherapy 11/29/2023 Telephone Radiation Oncology at [address] [phone] Sapna Cox 11/26/2023 Travel 11/24/2023 Telephone Hematology/Oncol ogy at [address] [phone] Marbella Hermosillo, RN 11/24/2023 Interpretation Only [address] [phone] Jez Vance MD 11/23/2023 Travel 11/22/2023 Telephone Hematology/Oncol ogy at [address] [phone] Emelia Obregon, RN Other (Check in after first chemo- FOLFIRINOX) 11/19/2023 10:30 AM EDT Infusion Hematology Oncology at [address] [phone] Malignant neoplasm of head of pancreas 11/19/2023 10:30 AM EDT Clinical Support Hematology/Oncol ogy at [address] [phone] Malignant neoplasm of head of pancreas 11/19/2023 10:00 AM EDT Office Visit Hematology/Oncol ogy at [address] [phone] Antonio Brownlee MD LaRoza, Stephanie A, OCCUPATIONAL THERAPY INSTRUCTOR Malignant neoplasm of head of pancreas; Chemotherapy induced nausea and vomiting 11/18/2023 Travel 11/17/2023 Orders Only Hematology and Oncology at [place] [phone] Antonio Brownlee MD 11/17/2023 Notes Only Hematology and Oncology at [place] [phone] Larry Mike, [facility] 11/14/2023 Multidisciplinary Ca re Committee General Surgery at [place] [phone] Carmen Orbien MD 11/12/2023 9:38 AM EDT Anesthesia Event [facility] [place] [phone] Lore Maxwell MD Butler, Eric J, BANQUET CHEF 11/12/2023 9:29 AM EDT - 11/12/2023 11:14 AM EDT Surgery [facility] [place] [phone] Carmen Obrien MD YUNG\NGUYEN.CATHETER,TUNN ELED, WITH SQ PORT OR PUMP OVER 5YR (WRVU 5.79) 11/12/2023 7:40 AM EDT - 11/12/2023 12:00 PM EDT Hospital Encounter [facility] [place] [phone] Carmen Obrien MD Cardiac arrhythmia, unspecified cardiac arrhythmia type Discharge Disposition: Home 11/12/2023 Travel 11/09/2023 1:30 PM EDT Clinical Support Hematology and Oncology at [place] [phone] Estrella Tompkins, PALLAVI Malignant neoplasm of prostate 11/09/2023 12:28 PM EDT - 11/09/2023 11:59 PM EDT Hospital Encounter Hematology and Oncology at [place] [phone] Malignant neoplasm of head of pancreas; Malignant neoplasm of prostate Discharge Disposition: Home 11/09/2023 11:00 AM EDT Office Visit Hematology and Oncology at [place] [phone] Antonio Brownlee MD Malignant neoplasm of head of pancreas; Exocrine pancreatic insufficiency 11/09/2023 10:30 AM EDT Office Visit Hematology [place] [phone] Kemal Matthews LGC Malignant neoplasm of head of pancreas; Malignant neoplasm of prostate; Family history of prostate cancer 11/09/2023 9:30 AM EDT Office Visit [place] [phone] Carmen Obrien MD Malignant neoplasm of head of pancreas 11/09/2023 Telephone Hematology/Oncol ogy at [address] [phone] Kelly Buchanan 11/08/2023 Travel 11/08/2023 Orders Only Hematology [place] [phone] Kemal Matthews LGC Malignant neoplasm of head of pancreas; Malignant neoplasm of prostate 11/04/2023 Travel 11/01/2023 Telephone Radiation Oncology at [address] [phone] Sapna Cox 10/30/2023 Travel 10/29/2023 Telephone [place] [phone] Carmen Obrien MD 10/28/2023 Orders Only [place] [phone] Andrew Reynoso MD 10/28/2023 Orders Only [place] [phone] Andrew Reynoso MD 10/25/2023 2:39 PM EDT Anesthesia Event [place] [phone] Kenyatta Sarmiento MD Wen, Louise Y, MD 10/25/2023 1:55 PM EDT Ancillary Procedure [place] [phone] 10/25/2023 1:53 PM EDT - 10/25/2023 3:08 PM EDT Surgery Gastroenterology at [place] [phone] Andrew Reynoso MD UPPER EUS- ENDOSCOPIC ULTRASOUND (WRVU 3.47) 10/25/2023 Notes Only Gastroenterology at [place] [phone] Patrizia Bassett 10/23/2023 12:17 PM EDT - 10/27/2023 3:16 PM EDT Hospital Encounter Hematology/Oncol ogy Unit Level 1 Wing D at [place] [phone] Leia Henley MD Gruber, MD Belkys Buitrago, MD Eliecer Quevedo Ashik, MD Jaundice; Pancreatic mass; Hypokalemia; Painless jaundice; Malignant neoplasm of prostate Discharge Disposition: Home 10/23/2023 Travel 10/21/2023 Lab Requisition Laboratory [place] [address] Brielle Lowry PA Other specified diseases of pancreas; Abnormal weight loss; Pruritus, unspecified; Unspecified abdominal pain 10/21/2023 Interpretation Only [address] [phone] Jez Vance MD from Last 3 Months [...] from your doctor or pharmacy? Never 11/04/2023 [facility] Utilities Answer Date Recorded In the [...] Mass Index 26.6 12/03/2023 7:48 AM EDT Plan of Treatment Upcoming Encounters Date Type Department Care Team (Late st Contact Info) Description 12/17/2023 8:30 AM EDT Office Visit Hematology/Oncology at [address] [phone] Antonio Brownlee MD [facility] [place] [address] Fani Haskins APRN [address] [place] [address] HEMATOLOGY AND ONCOLOGY [place], [place] [phone] 12/17/2023 9:00 AM EDT Infusion Hematology Oncology at [address] [phone] 12/17/2023 10:00 AM EDT Clinical Support Hematology/Oncology at [address] [phone] [facility] DR [place] [address] 12/24/2023 10:40 AM EST Office Visit Cardiology at [address] [phone] Cory Sellers MD [facility] [place] [address] 12/30/2023 9:00 AM EST Office Visit Hematology/Oncology at [address] [phone] Antonio Brownlee MD [facility] [place] [address] Fani Haskins APRN [address] [place] [address] DR HEMATOLOGY AND ONCOLOGY [place], [place] [phone] 12/30/2023 9:30 AM EST Infusion Hematology Oncology at [address] [phone] 04/04/2024 9:45 AM EST TH Visit (TeleHealth) Radiation Oncology at [address] [phone] Adrienne Singh PA [facility] [address] [place] [address] Health Maintenance Due Date Last Done Comments Tetanus/Diphtheria/Pertussis Vaccines (1 - Tdap) 06/21 Zoster vaccine (1 of 2) 1992 Pneumoccocal Vaccine: 65+ (1 of 1 - PCV) 06/22/2007 Covid-19 Vaccine (1 - 2022-24 season) 2023 Influenza (Flu) vaccine (1 o f 1 - Influenza standard series) 10/17/2023 Medical Devices Implanted Type Area Water Treatment Specialist Device Identifier Shelf Expiration Date Model / Serial / Lot Stent Wallflex [id number] Rx Platinol Fully Covered ([id number]) - [id number] Implanted:Qty: 1 on 10/25/2023 by Andrew Reynoso MD at [facility] IMPLANTS Bile Duct [employer] - Gluco[employer]ient [id number] 07/21/2025 [id number] / / [id number] Port Infusion 8fr Cath Power Lp Ct Plastic Dignity ([id number]) - [id number] Implanted:Qty: 1 on 11/12/2023 by Carmen Obrien MD at [facility] IMPLANTS N/A: Chest [employer] - MEDCOMP [place] 05/15/2028 [id number] / / [id number] Procedures Procedure Name Priority Date/Time Associated Diagnosis Comments LAB SCAN 12/03/2023 12:00 AM EDT LAB SCAN 12/03/2023 12:00 AM EDT PROPERTY CLAIM REP SCAN 12/02/2023 12:00 AM EDT ECHO SCAN (SCAN) 11/24/2023 12:0 0 AM EDT LAB SCAN 11/19/2023 12:00 AM EDT LAB SCAN 11/17/2023 12:00 AM EDT XR CHEST ONE VIEW Routine 11/12/2023 11: 33 AM EDT EKG 12-LEAD STAT 11/12/2023 11:23 AM EDT Cardiac arrhythmia, unspecified cardiac arrhythmia type XR FLUORO NO RAD <1HR - OR USE Routine 11/12/2023 10:35 AM EDT Fluoroscopy Exam Up To 1 Hr Phy Or Oth Hlth Care Prov (03408) Yes 11/12/2023 9:38 AM EDT PANCREAS CANCER Insert Tunneled CV Cath w SubQ Port, Age 5 Yrs or Older (12671) Yes 11/12/2023 9:38 AM EDT PANCREAS CANCER Lap, Diagnostic Abdomen (24232) Yes 11/12/2023 9:38 AM EDT PANCREAS CANCER [...] EDT Ercp Stent Placement Biliary Or Pancreatic Duct(11745) 10/25/2023 2:37 PM EDT pancreas head mass CHOLANGIOGRAM 10/25/2023 2:37 PM EDT pancreas head mass Ercp Balloon Dilatation Biliary/Pancreatic Duct Or Ampulla Ea Duct (51754) 10/25/2023 2:37 PM EDT pancreas head mass Ercp, Sphincterotomy (23733) 10/25/2023 2:37 PM EDT pancreas head mass Upgi Endoscopy W/Us Fn Bx (98649) 10/25/2023 2:37 PM EDT pancreas head mass Ercp, Diagnostic (86296) 10/25/2023 2:37 PM EDT pancreas head mass Endoscopic Us Exam, Esoph (45968) 10/25/2023 2:37 PM EDT pancreas head mass [...] 10/23/2023 1:10 PM EDT TYPE AND SCREEN ([facility]/CGP/FREDY) STAT 10/23/2023 12:32 PM EDT CBC (WITH DIFF) STAT 10/23/2023 12:32 PM EDT LIPASE STAT 10/23/2023 12:32 PM EDT COMPREHENSIVE METABOLIC PANEL STAT 10/23/2023 12:32 PM EDT CARBOHYDRATE ANTIGEN 19-9 Routine 10/21/2023 3:09 PM EDT Other specified diseases of pancreas Abnormal weight loss Pruritus, unspecified Unspecified abdominal pain US ABDOMEN LIMITED Routine 10/21/2023 9: 40 AM EDT from Last 3 Months Results * Scan Doc: Lab (12/03/2023 12:00 AM EDT) Only the most recent of4 resultswithin the time period is included. Narrative 12/03/2023 12:00 AM EDT Ordered by an unspecified provider. Scanning Provider MEDIA MGR SCAN EXT O RDR/RSLT * Scan Doc: Senior Oracle Applications Developer (12/02/2023 12:00 AM EDT) Anatomical Region Laterality Modality Other Narrative 12/02/2023 12:00 AM EDT Ordered by an unspecified provider. Scanning Provider MEDIA MGR SCAN EXT O RDR/RSLT * Scan Doc: Echo (11/24/2023 12:00 AM EDT) Anatomical Region Laterality Modality Cardiac Other Narrative 11/24/2023 12:00 AM EDT Ordered by an unspecified provider. Scanning Provider MEDIA MGR SCAN EXT O RDR/RSLT * XR Chest One View (11/12/2023 11:33 AM EDT) Drippler Signature WORKSTATION ID [id number] RAD Anatomical Region Laterality Modality Chest N/A [...] who have questions please contact the health medicare specialist that requested your imaging first. ? Narrative [...] patients who have questions please contactthe health medicare specialist that requested your imaging first. Carmen Obrien [...] (Bezet) 474 ms MUSE SYSTEM Calculated P [place] 49 degrees MUSE SYSTEM Calculated R [place] -55 degrees MUSE SYSTEM Calculated T [place] 8 degrees MUSE SYSTEM INTERPRETATION Sinus bradycardia [...] (ABNORMAL) PGx Oncology (11/09/2023 12:35 PM EDT) [facility] NGS Report Status Abnormal(A ) 11/17/2023 9:14 AM EDT [facility] Blood VENOUS BLOOD SPECIMEN / Unknown Venipuncture / Unknown 11/09/2023 12:35 PM EDT 11/09/2023 12:36 PM EDT Antonio Brownlee MD MOLECULAR ORDERABLES Performing Organization Address [facility]/ZIP Co de Phone Number [facility] [place] [address] * (ABNORMAL) Carbohydrate Antigen 19-9 (11/09/2023 12:35 PM EDT) Only the most recent of2 resultswithin the time period is included. [facility] CA 19-9 110.0(H) <=35.0 units/mL 11/09/2023 1:35 PM EDT [facility] Comment:This result was gene rated using a Doreen Danis immunoassay. Results obtained from other methods or manufacturers cannot be used interchangeably with this method. Blood VENOUS BLOOD SPECIMEN / Unknown Venipuncture / Unknown 11/09/2023 12:35 PM EDT 11/09/2023 12:36 PM EDT Antonio Brownlee MD CHEMISTRY ORDERABLES Performing Organization Address City/[facility]/ZIP Co de Phone Number [facility] [place] [address] * (ABNORMAL) CBC (with Diff) (11/09/2023 12:35 PM EDT) Only the most recent of6 resultswithin the time period is included. [facility] White Blood Cell 7.04 4.00 - 9.50 x10(3)/mc L 11/09/2023 1:00 PM [facility] Red Blood Cell 3.81(L) 4.58 - 5.54 x10(6)/mc L 11/09/2023 1:00 PM [facility] Hemoglobin 12.5(L) 13.7 - 16.5 g/dL 11/09/2023 1:00 PM [facility] Hematocrit 36.5(L) 40.5 - 48.5 % 11/09/2023 1:00 PM [facility] Mean Cell Volume 95.8(H) 82.9 - 93.1 fL 11/09/2023 1:00 PM [facility] Mean Cell Hemoglobin 32.8(H) 27.5 - 32.1 pg 11/09/2023 1:00 PM [facility] Mean Cell Hemoglobin Concentration 34.2 32.0 - 35.7 g/dL 11/09/2023 1:00 PM [facility] Platelet 256 145 - 357 x10(3)/mc L 11/09/2023 1:00 PM [facility] Mean Platelet Volume 10.7 7.6 - 12.9 fL 11/09/2023 1:00 PM [facility] RDW Standard Deviation 44.8 36.0 - 45.0 fL 11/09/2023 1:00 PM [facility] RDW coefficient of variation 12.8 11.4 - 13.8 % 11/09/2023 1:00 PM [facility] NRBC% auto 0.0 % 11/09/2023 1:00 PM [facility] NRBC Absolute <0.01 <0.01 x10(3)/mc L 11/09/2023 1:00 PM [facility] Neutrophil % 74.7 % 11/09/2023 1:00 PM [facility] Neutrophil Absolute (ANC) - Automated 5.26 1.70 - 6.10 x10(3)/mc L 11/09/2023 1:00 PM EDT [facility] Lymph % 14.9 % 11/09/2023 1:00 PM EDT [facility] Lymph Absolute 1.05 0.90 - 3.20 x10(3)/mc L 11/09/2023 1:00 PM EDT [facility] Monocyte % 7.5 % 11/09/2023 1:00 PM EDT [facility] Monocyte Absolute 0.53 0.30 - 0.90 x10(3)/mc L 11/09/2023 1:00 PM EDT [facility] Eos % 2.0 % 11/09/2023 1:00 PM EDT [facility] Eos Absolute 0.14 0.00 - 0.40 x10(3)/mc L 11/09/2023 1:00 PM EDT [facility] Basophil % 0.6 % 11/09/2023 1:00 PM EDT [facility] Baso Absolute 0.04 0.00 - 0.10 x10(3)/mc L 11/09/2023 1:00 PM EDT [facility] Immature Gran % 0.3 % 1:00 PM EDT [facility] Immature Gran Absolute <0.04 0.00 - 0.04 x10(3)/mc L 11/09/2023 1:00 PM EDT [facility] Blood VENOUS BLOOD SPECIMEN / Unknown Venipuncture / Unknown 11/09/2023 12:35 PM EDT 11/09/2023 12:36 PM EDT Antonio Brownlee MD HEMATOLOGY ORDERABLE S [facility] [place] [address] * (ABNORMAL) Comprehensive metabolic panel Non-fasting (11/09/2023 12:35 PM EDT) Only the most recent of6 resultswithin the time period is included. Glucose 115 65 - 199 mg/dL 11/09/2023 1:29 PM [facility] Comment:Glucose Concentratio n >=200 mg/dL plus symptoms is consistent with Diabetes Mellitus. Blood Urea Nitrogen 15 10 - 20 mg/dL 11/09/2023 1:29 PM [facility] Creatinine 0.68(L) 0.80 - 1.50 mg/dL 11/09/2023 1:29 PM [facility] Sodium 138 135 - 145 mMol/L 11/09/2023 1:29 PM [facility] Potassium 4.0 3.5 - 5.0 mMol/L 11/09/2023 1:29 PM [facility] Chloride 102 98 - 107 mMol/L 11/09/2023 1:29 PM [facility] Carbon Dioxide 24 22 - 31 mMol/L 11/09/2023 1:29 PM [facility] Anion Gap 12 5 - 15 mMol/L 11/09/2023 1:29 PM [facility] Calcium 8.9 8.5 - 10.5 mg/dL 11/09/2023 1:29 PM [facility] Protein, Total 6.6 6.1 - 8.0 g/dL 11/09/2023 1:29 PM [facility] Albumin 4.2 3.2 - 5.2 g/dL 11/09/2023 1:29 PM [facility] Aspartate Aminotransferase 21 <=39 unit/L 11/09/2023 1:29 PM [facility] Alanine Aminotransferase 50 0 - 55 unit/L 11/09/2023 1:29 PM [facility] Alkaline Phosphatase 159(H) 40 - 130 unit/L 11/09/2023 1:29 PM [facility] Bilirubin, Total 0.9 <=1.3 mg/dL 11/09/2023 1:29 PM EDT [facility] Est Glomerular Filtration Rate - Male 93 mL/min/1. 73 m?? 11/09/2023 1:29 PM EDT [facility] Comment: This patient's estimated [...] Fasting Status No 11/09/2023 1:29 PM EDT [facility] Blood VENOUS BLOOD SPECIMEN / Unknown Venipuncture / Unknown 11/09/2023 12:35 PM EDT 11/09/2023 12:36 PM EDT Antonio Brownlee MD CHEMISTRY ORDERABLES [facility] [place] [address] * (ABNORMAL) Phosphorus (10/27/2023 3:35 AM EDT) Only the most recent of3 resultswithin the time period is included. Phosphorus 2.4(L) 2.5 - 4.5 mg/dL 10/27/2023 5:56 AM EDT [facility] Blood VENOUS BLOOD SPECIMEN / Unknown IP Care Team Draw / Unknown 10/27/2023 3:35 AM EDT 10/27/2023 3:47 AM EDT Ros Gonzáles MD CHEMISTRY ORDERABLES [facility] [place] [address] * (ABNORMAL) Magnesium (10/27/2023 3:35 AM EDT) Only the most recent of3 resultswithin the time period is included. Magnesium 0.63(L) 0.69 - 1.07 mMol/L 10/27/2023 5:56 AM EDT [facility] Blood VENOUS BLOOD SPECIMEN / Unknown IP Care Team Draw / Unknown 10/27/2023 3:35 AM EDT 10/27/2023 3:47 AM EDT Ros Gonzáles MD CHEMISTRY ORDERABLES Performing Organization Address [facility] de Phone Number [facility] [place] [address] * XR ERCP (10/25/2023 4:40 PM EDT) Narrative [facility] - 10/25/2023 4:45 PM EDT See PACS for result report. Ros Gonzáles MD IMG FILM LIBRARY ORD ERABLES Performing Organization Address [facility] de Phone Number [place], [place] * (ABNORMAL) Cytology FNA (10/25/2023 3:19 PM EDT) Pathologist [facility] Case Report Medical Cytology Report ? Case: [id number] ? Authorizing Provider: ??Ros Gonzáles MD ?Collected: ? 10/25/2023 1519 ? Ordering Location: ? Gastroenterology at [facility] ?? Received: ?10/25/2023 1627 ? Pathologist: ? Garrick Vuong MD ? Specimen: ?Pancreas, Head, mass ? 10/28/2023 11:54 AM [facility] Specimen Source Pancreas, Head (EUS-guided FNA) 10/28/2023 11:54 AM [facility] Final Diagnosis Positive for malignancy 10/28/2023 11:54 AM [facility] Diagnosis Discussion Adenocarcinoma. (Cell block was examined.) 10/28/2023 11:54 AM [facility] Specimen Adequacy Satisfactory for evaluation. 10/28/2023 11:54 AM [facility] Additional Studies Block Antibody [...] The assays were performed according to the steamboat inspector's instructions using anti MLH-1 (ES05), anti-MSH-2 ([id number]), andti-MSH-6 (44), and anti-PMS-2 (MRQ-28) antibodies. 10/28/2023 11:54 AM [facility] Disclaimer(s) Formalin-fixed, paraffin-embedded tissue [...] and other diagnostic tests. 10/28/2023 11:54 AM EDT [facility] Clinical Information 83 yrs old male/EUS/ERCP/ pancreas head mass, malignant biliary obstruction 10/28/2023 11:54 AM EDT [facility] Immediate Assessment Fine Needle [...] for final interpretation. 10/28/2023 11:54 AM EDT [facility] Gross Description Received in formalin, approximately 45 mL total volume of cloudy, red fluid with clots. Total preparation: Diff-Quik slide(s): 4, Pap Stain slide(s): 4, and Cell Block: 1. 10/28/2023 11:54 AM EDT [facility] Result Note THIS RESULT REQUIRES PHYSICIAN/CRYSTAL FOLLOW UP(A) 10/28/2023 11:54 AM EDT [facility] Fine Needle Aspirate STRUCTURE OF HEAD OF PANCREAS / Unknown Non Blood Collection / Unknown 10/25/2023 3:19 PM EDT 10/25/2023 4:27 PM EDT Ros Gonzáles MD PATHOLOGY/CYTOLOGY O RDERABLES [facility] [place] [address] * ERCP (10/25/2023 2:24 PM EDT) ERCP [facility] Endoscopy Procedure Date: 10/25/2023 2:24 PM ? Patient Name: Benny Zurita ? Date of : 1940 ? Age: 83 ? Order #: [id number] ? Instrument Name: [id number] ? Procedure: ? ERCP Providers: ? Aaron Alvarado ? Mariah Olmos, ? Medication Aid Referring MD: ?Andres Benitez MD Complications: ? [...] (10/25/2023 2:23 PM EDT) UPPER ENDOSCOPIC ULTRASOUND [facility] Endoscopy Procedure Date: 10/25/2023 2:23 PM ? Patient Name: Benny Zurita ? Date of : 1940 ? Age: 83 ? Order #: [id number] ? Instrument Name: [id number]- [id number] ? Procedure: ? Upper EUS Patient Profile: ? 83m with suspected malignant ? biliary obstruction Providers: ? Andrew Reynoso, Aaron Schmitt ? Mariah Olmos, ? Medication Aid Referring MD: ? Medicines: ? See the [...] without invasion ? - Using a 22G TripConnectcore needle with stylet through ? Duodenum, FNB [...] 65 - 199 mg/dL 10/24/2023 4:48 PM [facility] Comment:Glucose Concentratio n >=200 mg/dL plus symptoms is consistent with Diabetes Mellitus. Blood Urea Nitrogen 17 10 - 20 mg/dL 10/24/2023 4:48 PM [facility] Creatinine 0.68(L) 0.80 - 1.50 mg/dL 10/24/2023 4:48 PM [facility] Sodium 131(L) 135 - 145 mMol/L 10/24/2023 4:48 PM [facility] [facility] Potassium 3.5 3.5 - 5.0 mMol/L 10/24/2023 4:48 PM [facility] Chloride 94(L) 98 - 107 mMol/L 10/24/2023 4:48 PM [facility] Carbon Dioxide 26 22 - 31 mMol/L 10/24/2023 4:48 PM [facility] Anion Gap 11 5 - 15 mMol/L 10/24/2023 4:48 PM [facility] Calcium 9.0 8.5 - 10.5 mg/dL 10/24/2023 4:48 PM [facility] Est Glomerular Filtration Rate - Male 93 mL/min/1. 73 m?? 10/24/2023 4:48 PM [facility] Comment: This patient's estimated [...] EDT Rj Rizvi MD CHEMISTRY ORDERABLES [facility] One [facility] [place] [facility] [place] [address] * CT Chest w Contrast (10/24/2023 1:41 PM EDT) WORKSTATION ID [id number] RAD Anatomical Region Laterality Modality Chest Computed Tomogra phy Impressions 10/24/2023 5:21 PM EDT No metastatic disease in the chest. Thank you for letting us participate in the care of this patient. ??If you are a health care provider and have any questions regarding this report, please contact the number below. ??For patients who have questions please contact the health medicare specialist that requested your imaging first. ? Narrative [...] patients who have questions please contactthe health medicare specialist that requested your imaging first. Rj Rizvi MD IMG CT ORDERABLES * ABORH RECHECK (10/23/2023 1:24 PM EDT) ABORH Recheck O POSITIVE 10/23/2023 2:12 PM EDT [facility] Blood VENOUS BLOOD SPECIMEN / Unknown IP Care Team Draw / Unknown 10/23/2023 1:24 PM EDT 10/23/2023 1:29 PM EDT Leia Rincon MD BLOOD BANK LAB ORDER RICHELLE [facility] [place] [address] * CT Abdomen & Pelvis w Contrast (10/23/2023 1:10 PM EDT) [employer] WORKSTATION ID [id number] RAD Anatomical Region Laterality Modality Abdomen, Pelvis [...] who have questions please contact the health medicare specialist that requested your imaging first. ? Narrative [...] patients who have questions please contactthe health medicare specialist that requested your imaging first. Leia Rincon MD IMG CT ORDERABLES * Type and screen ([facility]) (10/23/2023 12:32 PM EDT) ABORH Type O POSITIVE 10/23/2023 1:31 PM EDT [facility] PATIENT HISTORY Not Found 10/23/2023 1:31 PM EDT [facility] Expires at [id number] on: 10-26-2023 10/23/2023 1:31 PM EDT [facility] ANTIBODY SCREEN AUTOMATED Negative 10/23/2023 1:31 PM EDT [facility] T&S only valid at [facility] 10/23/2023 1:31 PM EDT [facility] Blood VENOUS BLOOD SPECIMEN / Unknown Venipuncture / Unknown 10/23/2023 12:32 PM EDT 10/23/2023 12:37 PM EDT Narrative [facility] - 10/23/2023 1:31 PM EDT This Type and Screen result is only valid at the [facility] Leia Rincon MD BLOOD BANK LAB ORDER RICHELLE [facility] [place] [address] * Lipase (10/23/2023 12:32 PM EDT) Lipase 49 0 - 60 unit/L 10/23/2023 1:11 PM EDT [facility] Blood VENOUS BLOOD SPECIMEN / Unknown Venipuncture / Unknown 10/23/2023 12:32 PM EDT 10/23/2023 12:41 PM EDT Leia Rincon MD CHEMISTRY ORDERABLES Performing Organization Address City/[facility]/ZIP Co de Phone Number [facility] [place] [address] * US Abdomen Limited (10/21/2023 9:40 AM EDT) PT CLASS O RAD ADMITDTTM [id number] RAD PT RAD INFO [id number]^Genere aux^Jez^H RAD EXAM DESC UABDLIM^US Abdomen Limited^RIS [...] who have questions please contact the health medicare specialist that requested your imaging first. ? Narrative [...] patients who have questions please contactthe health medicare specialist that requested your imaging first. 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
--- OUTSIDE RECORDS SUMMARY | 2023-12-17 01:45 | XMS_ITS | Encounter Summary ---
[facility] Organization [facility] Address [facility] [place] [address] Care Team Providers Care Road Maker Name Role Phone Jez Vance MD Primary Care Provider [phone] Reason for Visit * Reason Onset Date Comments Other 11/22/2023 Check in after f irst chemo- FOLFIRINOX Encounter Details Date Type Department Care Team (Late st Contact Info) Description 11/22/2023 Telephone Hematology/Oncology at [address] [phone] Emelia Obregon RN Other (Check [...] from your doctor or pharmacy? Never 11/04/2023 [facility] Utilities Answer Date Recorded In the [...] any time in the past 12 m [facility], were you homeless or living [...] Education provided: noted above Plan: Reinforced to patient/care-shot blast equipment operator to call facility 07/09 with any new/worsening signs and symptoms orconcerns or questions. Phone number provided. Pt verbalized understanding and is in agreement with plan. documented in this encounter Plan of Treatment Upcoming Encounters Date Type Department Care Team (Late st Contact Info) Description 12/17/2023 8:30 AM EDT Office Visit Hematology/Oncology at [address] [phone] Antonio Brownlee MD [facility] [place] [address] Fani Haskins APRN [address] [place] [address] DR HEMATOLOGY AND ONCOLOGY [place], [place] [phone] 12/17/2023 9:00 AM EDT Infusion Hematology Oncology at [address] [phone] 12/17/2023 10:00 AM EDT Clinical Support Hematology/Oncology at [address] [phone] [facility] DR [place] [address] 12/24/2023 10:40 AM EST Office Visit Cardiology at [address] [phone] Cory Sellers MD [facility] [place] [address] 12/30/2023 9:00 AM EST Office Visit Hematology/Oncology at [address] [phone] Antonio Brownlee MD [facility] [place] [address] Fani Haskins [address] HEMATOLOGY AND ONCOLOGY [place], [place] [phone] 12/30/2023 9:30 AM EST Infusion Hematology Oncology at [address] [phone] 04/04/2024 9:45 AM EST TH Visit (TeleHealth) Radiation Oncology at [address] [phone] Adrienne Singh PA [facility] [place] [address] documented as of this encounter Visit Diagnoses Not on filedocumented in this encounter Care Teams Road Maker Relationship Specialty Start Date End Date Jez Vance MD [address] [facility] [place] [address] PCP - General 01/07/10 documented as of this encounter
--- OUTSIDE RECORDS SUMMARY | 2023-12-17 01:45 | XMS_ITS | Encounter Summary ---
Author Organization [facility] Address [facility] [place] [address] Care Team Providers Care Gun Sealing Machine Operator Name Role Phone Jez Vance MD Primary Care Provider [phone] [phone] Encounter Details Date Type Department Care Team (Late st Contact Info) Description 11/24/2023 Telephone Hematology/Oncology at [address] [phone] Marbella Hermosillo, RN Social History Tobacco Use Types Packs/Day Years [...] from your doctor or pharmacy? Never 11/04/2023 [facility] Utilities Answer Date Recorded In the past 12 months has [employer], gas, oil, or water [employer] threatened to shut off services in your [...] any time in the past 12 m [facility], were you homeless or living in [...] 2:09 PM EDT Consulted with Fani Haskins, JAZMÍN, pt ok to have Lupron same day as Folfox on 12/02. Call to Angela to let her know, she was thankful for the call. * Telephone Encounter - Marbella Hermosillo RN - 11/24/2023 2:05 PM EDT ----- Message from Kelly B sent at 11/24/2023 10:51 AM EDT ----- Benny and , Angela, called in to see if they could do his Lupron on 12/02 along with his Folirinox. Then they can do a - video from home on 11/29 and save themselves a trip. I wasn't sure of any contraindications with the two medications on the same day, so wanted to double check first. documented in this encounter Plan of Treatment Upcoming Encounters Date Type Department Care Team (Late st Contact Info) Description 12/17/2023 8:30 AM EDT Office Visit Hematology/Oncology at [address] [phone] Antonio Brownlee MD [facility] [place] [address] Fani Haskins [address] HEMATOLOGY [place] [address] 12/17/2023 9:00 AM EDT Infusion Hematology Oncology at [address] [phone] 12/17/2023 10:00 AM EDT Clinical Support Hematology/Oncology at [address] [phone] [facility] DR HEMATOLOGY [place] [address] 12/24/2023 10:40 AM EST Office Visit Cardiology at [address] [phone] Cory Sellers MD [facility] [place] [address] 12/30/2023 9:00 AM EST Office Visit Hematology/Oncology at [address] [phone] Antonio Brownlee MD [facility] [place] [address] Fani Haskins INSPECTOR [employer]IN[employer] [address] [place] [address] DR HEMATOLOGY AND ONCOLOGY [place], [place] [phone] 12/30/2023 9:30 AM EST Infusion Hematology Oncology at [address] [phone] 04/04/2024 9:45 AM EST TH Visit (TeleHealth) Radiation Oncology at [address] [phone] Adrienne Singh PA [facility] DR HEMATOLOGY [place] [address] documented as of this encounter Visit Diagnoses Not on filedocumented in this encounter Care Teams Gun Sealing Machine Operator Relationship Specialty Start Date End Date Jez Vance MD [address] [place] [address] PCP - General 01/07/10 documented as of this encounter
--- OUTSIDE RECORDS SUMMARY | 2023-12-17 01:45 | XMS_ITS | Encounter Summary ---
Author Organization [facility] Address [facility] [place] [address] Care Team Providers Care Remote Sensing Research Scientist Name Role Phone Jez Vance MD Primary Care Provider [phone] [phone] Encounter Details Date Type Department Care Team (Late st Contact Info) Description 12/02/2023 Telephone [place]ematology [place] [phone] [facility] [address] Social History Tobacco Use Types Packs/Day Years [...] from your doctor or pharmacy? Never 11/04/2023 [facility] Utilities Answer Date Recorded In the [...] any time in the past 12 m [facility], were you homeless or living in a [...] is provided below. Please be advised that [place] law requires that all health care workers respect the confidentiality of this information and not pass it along to other health care providers, insurance companies, or individuals without the written permission of the patient. The Familial Cancer Program welcomes any questions about these matters. Our phone number is: [phone]. On 11/09/2023 Benny was seen for genetic counseling and subsequently underwent genetic testing for a hereditary predisposition to cancers in eight major organ systems including breast, gynecologic, gastrointestinal, endocrine, genitourinary, skin, brain/nervous system, sarcoma and hematologic. Following are the results of this test. Result: [employer]'s CancerNext-Expanded +iSTAR Medical Panel showed no pathogenic mutations were detected. [...] NF1, NF2, NTHL1, PALB2, PHOX2B, PMS2, POT1, IYLVM0K, PTCH1, PTEN, RAD51C, RAD51D, RB1, RET, SDHA, SDHAF2, SDHB, SDHC, SDHD, SMAD4, SMARCA4, SMARCB1, SMARCE1, STK11, SUFU, GRBW944, TP53, TSC1, TSC2 and VHL (sequencing and [...] the genes with no increased cancer risks. [employer] is continually collecting and analyzing their data, [...] 8:30 AM EDT Office Visit Hematology/Oncology at [address] [phone] Antonio Brownlee MD [facility] [place] [address] Fani Haskins APRN [address] [place] [address] DR HEMATOLOGY [place] [address] 12/17/2023 9:00 AM EDT Infusion Hematology Oncology at [address] [phone] 12/17/2023 10:00 AM EDT Clinical Support Hematology/Oncology at [address] [phone] [facility] DR [place] [address] 12/24/2023 10:40 AM EST Office Visit Cardiology at [address] [phone] Cory Sellers MD [facility] [place] [address] 12/30/2023 9:00 AM EST Office Visit Hematology/Oncology at [address] [phone] Antonio Brownlee MD [facility] [place] [address] Fani Haskins APRN [address] [place] [address] DR HEMATOLOGY AND ONCOLOGY [place], [place] [phone] 12/30/2023 9:30 AM EST Infusion Hematology Oncology at [address] [phone] 04/04/2024 9:45 AM EST TH Visit (TeleHealth) Radiation Oncology at [address] [phone] Adrienne Singh PA [facility] DR [place] [address] documented as of this encounter Visit Diagnoses Not on filedocumented in this encounter Care Teams Remote Sensing Research Scientist Relationship Specialty Start Date End Date Jez Vance MD [address] [place] [address] PCP - General 01/07/10 documented as of this encounter
--- OUTSIDE RECORDS SUMMARY | 2023-12-17 01:45 | XMS_ITS | Encounter Summary ---
Author Organization [facility] Address [facility] [place] [address] Care Team Providers Care Motorcoach Driver Name Role Phone Jez Vance MD Primary Care Provider [phone] [phone] Encounter Details Date Type Department Care Team [...] from your doctor or pharmacy? Never 11/04/2023 [facility] Utilities Answer Date Recorded In the [...] any time in the past 12 m [facility], were you homeless or living in a senior living (including now)? No 11/04/2023 IPV Inpatient Questions [...] AM EDT Office Visit Hematology/Oncology at [address] [phone] Antonio Brownlee MD [facility] [place] [address] Fani Haskins APRN [address] [place] [address] DR HEMATOLOGY AND ONCOLOGY [place], [place] [phone] 12/17/2023 9:00 AM EDT Infusion Hematology Oncology at [address] [phone] 12/17/2023 10:00 AM EDT Clinical Support Hematology/Oncology at [address] [phone] [facility] DR [place]ATOLOG[place] [address] 12/24/2023 10:40 AM EST Office Visit Cardiology at [address] [phone] Cory Sellers MD [facility] [place] [place] [address] 12/30/2023 9:00 AM EST Office Visit Hematology/Oncology at [address] [phone] Antonio Brownlee MD [facility] [place] [address] Fani Haskins [address] HEMATOLOGY AND ONCOLOGY [place], [place] [phone] 12/30/2023 9:30 AM EST Infusion Hematology Oncology at [address] [phone] 04/04/2024 9:45 AM EST TH Visit (TeleHealth) Radiation Oncology at [address] [phone] Adrienne Singh PA [facility] [place] [address] documented as of this encounter Visit Diagnoses Not on filedocumented in this encounter Care Teams Motorcoach Driver Relationship Specialty Start Date End Date Jez Vance MD [address] [place] [address] PCP - General 01/07/10 documented as of this encounter
--- OUTSIDE RECORDS SUMMARY | 2023-12-17 01:45 | XMS_ITS | Encounter Summary ---
Author Organization [facility] Address [facility] [place] [address] Care Team Providers Care Gis Physical Scientist Name Role Phone Jez Vance MD Primary Care Provider [phone] Reason for Visit * Treatment/Therapy Plan Authorization (Routine) - Authorized Specialty Diagnoses / Procedures Referred By Deena yao Referred To Contact Diagnoses Malignant neoplasm of head of pancreas Procedures INFUSION Antonio Brownlee MD [facility] [place] [address] Stj Hem Onc Infusion [address] [place] [phone] Referral ID Status Reason Start Date Expiration Date V isits Requested Visits Authorized [id number] Authorized 11/09/2023 11/08/2024 1 99 Encounter Details Date Type Department Care Team (Late st Contact Info) Description 12/17/2023 9:00 AM EDT Infusion Hematology Oncology at [address] [phone] Social History Tobacco Use Types [...] from your doctor or pharmacy? Never 11/04/2023 [facility] Utilities Answer Date Recorded In [...] time in the past 12 m [facility], were you homeless or living in a prison (including now)? No 11/04/2023 IPV Inpatient Questions [...] AM EDT Office Visit Hematology/Oncology at [address] [phone] Antonio Brownlee MD [facility] [place] [address] Fani Haskins [address] HEMATOLOGY AND ONCOLOGY [place], [place] [phone] 12/17/2023 10:00 AM EDT Clinical Support Hematology/Oncology at [address] [phone] [facility] DR [place] [address] 12/24/2023 10:40 AM EST Office Visit Cardiology at [address] [phone] Cory Sellers MD [facility] [place] [place] [address] 12/30/2023 9:00 AM EST Office Visit Hematology/Oncology at [address] [phone] Antonio Brownlee MD [facility] [place] [address] Fani Haskins [address] HEMATOLOGY AND ONCOLOGY [place], [place] [address] 12/30/2023 9:30 AM EST Infusion Hematology Oncology at [address] [phone] 04/04/2024 9:45 AM EST TH Visit (TeleHealth) Radiation Oncology at [address] [phone] Adrienne Singh PA [facility] DR [place] [address] documented as of this encounter Visit Diagnoses Not on filedocumented in this encounter Care Teams Gis Physical Scientist Relationship Specialty Start Date End Date Jez Vance MD [address] [place] [address] PCP - General 01/07/10 documented as of this encounter
--- OUTSIDE RECORDS SUMMARY | 2023-12-17 01:45 | XMS_ITS ---
Author Organization [facility] Address [facility] [place] [address] Care Team Providers Care Cart Attendant Name Role Phone Jez Vance MD Primary Care Provider [phone] [phone] Active Problems Problem Noted Date Diagnosed Date Malignant neoplasm of head of pancreas Hypokalemia 10/24/2023 Painless jaundice 10/23/2023 Malignant neoplasm of prostate 07/31/2022 Cancer Staging:Clinical:Stage IIC(cT1c, cN0, cM0, PSA: 11.9, Grade Group: 4) - Signed by Toro Hayes MD on 07/31/2022 Current Oncology Plans [facility] AMB ONC GI PANCREATIC CANCER - MODIFIED FOLFIRINOX (IRINOtecan 150 MG/M2) * Plan Start Date:11/19/2023 Plan Provider:Antonio Brownlee MD Linked Problems Malignant neoplasm of head o f pancreas Treatment Medications Current Day (Day 1 , Cycle 3 - Planned for 12/17/2023) Next Day (Day 3, Cycle 3 - Planned for 12/19/2023) fluorouraciL (AdruciL) in sodium chloride 0.9% 138 [...] - For Home Use) 2,424 mgIRINOtecan (Camptosar) 300 mg in dextrose 5% 515 mL infusionleucovorin (Wellcovorin) 350 mg in dextrose 5% 85 mL infusionOXALIplatin (Eloxatin) 172 mg in dextrose 5% 284.4 mL infusion Home Infusion: Pump Disconnect Leuprolide (Lupron Depot) injection ([facility] OBMETHODIST [facility], [facility], [facility])* Plan Start Date:12/04/2022 Plan Provider:Toro Hayes MD Linked Problems Malignant neoplasm of prosta te Treatment Medications No medications scheduled. Leuprolide (Lupron Depot) Injection ([facility], [facility] OBMETHODIST [facility], [facility], [facility]) Adult* Plan Start Date:12/03/2023 Plan Provider:Adrienne Singh PA Linked Problems Malignant neoplasm of prosta te Treatment Medications No medications scheduled. Past Plans Therapy Plan 1 Plan Name Start Date Discontinue Date Treatment Medications Discontinue Reason Plan Provider Leuprolide (Lupron Depot) Injection ([facility], [facility]) 7.5 mg Every Month 08/13/2022 11/06/2022 No medications scheduled. Patient Preference Toro Hayes MD Radiation Treatments * No radiation treatments are documented for this patient in [facility]. Treatments may have been administered in another system.
--- OUTSIDE RECORDS SUMMARY | 2023-12-17 01:45 | XMS_ITS | Encounter Summary ---
Author Organization [facility] Address [facility] [place] [address] Care Team Providers Care Parquet Floor Layer'S Helper Name Role Phone Jez Vance MD Primary Care Provider +1 [phone] Encounter Details Date Type Department Care Team (Latest Contact Info) Description 11/30/2023 2:30 PM EDT TH Visit (TeleHealth) Radiation Oncology at [address] [phone] Adrienne Singh PA [facility] DR HEMATOLOGY [place] [address] Malignant neoplasm of prostate (Primary Dx); Androgen [...] from your doctor or pharmacy? Never 11/04/2023 [facility] Utilities Answer Date Recorded In the past [...] Singh PA - 11/30/2023 2:30 PM EDT [facility] [place] [address] TELEHEALTH FOLLOW-UP: Patient: Benny Zurtia : 1940 PCP: Jez Vance MD ([place]); Troy Arce MD ([place], [place]; [phone]) Urologist: Gordo Kaplan MD ([facility] [place], [place]) Radiation Oncologist: Toro Hayes MD (Consult Date: 08/06/22) Chief Complaint: Follow-up for high-risk prostate cancer (Stage IIC: cT1c, cN0, cM0; [place] 4+4, PSA 11.9) HPI: Date of Diagnosis [...] Last Visit on 07/22/23: 10/22-01/08: IP at [facility] for hypokalemia, mild normocytic anemia (HGB 13.1) and obstructive jaundice. Found to have a pancreatic head mass c/f malignant obstruction. Underwent EUS and ERCP with stent placement, pathology positive for adenocarcinoma. 11/09/23: seen by General Surgery with plan for chemotherapy x 4 months, minimally-invasive robotic Whipple, and then 2 months of post-operative chemotherapy. 11/19/23: Started FOLFOX with Dr. Brownlee. General: Not going to [place] this winter since he is being treated [...] Prior to Visit Medication Sig Dispense Refill womxis-rbpqchwm-nmptrjl (Creon 24) 24,000-76,000 -120,[address] capsule [...] Labs Reviewed This Visit: Date PSA Testosterone ([phone]) Notes 09/04/20 4.7 07/22/21 6.32 03/31/22 11.892 [...] Follow-Up: Next visit (Telehealth): 4-6 months Labs ([facility]): PSA, Testosterone Benny Zurita had the opportunity [...] AM EDT Office Visit Hematology/Oncology at [address] [phone] Antonio Brownlee MD [facility] [place] [address] Fani Haskins [address] [place] [address] 12/17/2023 9:00 AM EDT Infusion Hematology Oncology at [address] [phone] 12/17/2023 10:00 AM EDT Clinical Support Hematology/Oncology at [address] [phone] [facility] DR HEMATOLOGY [place] [address] 12/24/2023 10:40 AM EST Office Visit Cardiology at [address] [phone] Cory Sellers MD [facility] [place] [address] 12/30/2023 9:00 AM EST Office Visit Hematology/Oncology at [address] [phone] Antonio Brownlee MD [facility] [place] [address] Fani Haskins APRN [address] [place] [address] DR HEMATOLOGY AND ONCOLOGY [place], [place] [id number] 12/30/2023 9:30 AM EST Infusion Hematology Oncology at [address] [phone] 04/04/2024 9:45 AM EST TH Visit (TeleHealth) Radiation Oncology at [address] [phone] Adrienne Singh PA [facility] DR HEMATOLOGY [place] [address] Scheduled Orders Name Type Priority Associated Diagnoses [...] pancreas documented in this encounter Care Teams Parquet Floor Layer'S Helper Relationship Specialty Start Date End Date Jez Vance MD [address] [place] [address] PCP - General 01/07/10 documented as of this encounter
--- OUTSIDE RECORDS SUMMARY | 2023-12-17 01:45 | XMS_ITS | Encounter Summary ---
Author Organization [facility] Address [facility] [place] [address] Care Team Providers Care Transmitter Tester Name Role Phone Jez Vance MD Primary Care Provider [phone] [phone] Encounter Details Date Type Department Care Team (Latest Contact Info) Description 12/10/2023 Travel Social History Tobacco Use Types Packs/Day [...] doctor or pharmacy? Never 11/04/2023 [facility] Utilities Answer Date Recorded In [...] a nursing home (including now)? No 08/06/2022 Housing Stability [...] any time in the past 12 m [facility], were you homeless or living in a nursing home (including now)? No 11/04/2023 IPV Inpatient [...] AM EDT Office Visit Hematology/Oncology at [address] [phone] Antonio Brownlee MD [facility] [place] [address] Fani Haskins APRN [address] [place] [address] DR HEMATOLOGY AND ONCOLOGY [place], [place] [id number] 12/17/2023 9:00 AM EDT Infusion Hematology Oncology at [address] [phone] 12/17/2023 10:00 AM EDT Clinical Support Hematology/Oncology at [address] [phone] [facility] DR [place] [address] 12/24/2023 10:40 AM EST Office Visit Cardiology at [address] [phone] Cory Sellers MD [facility] [place] [place] [address] 12/30/2023 9:00 AM EST Office Visit Hematology/Oncology at [address] [phone] Antonio Brownlee MD [facility] [place] [address] Fani Haskins [address] HEMATOLOGY AND ONCOLOGY [place], [place] [phone] 12/30/2023 9:30 AM EST Infusion Hematology Oncology at [address] [phone] 04/04/2024 9:45 AM EST TH Visit (TeleHealth) Radiation Oncology at [address] [phone] Adrienne Singh PA [facility] [place] [address] documented as of this encounter Visit Diagnoses Not on filedocumented in this encounter Care Teams Transmitter Tester Relationship Specialty Start Date End Date Jez Vance MD [address] [place] [address] PCP - General 01/07/10 documented as of this encounter
--- OUTSIDE RECORDS SUMMARY | 2023-12-17 01:45 | XMS_ITS | Encounter Summary ---
Author Organization [facility] Address [facility] [place] [address] Care Team Providers Care Wire Bound Box Machine Operator Name Role Phone Jez Vance MD Primary Care Provider +1 [phone] Encounter Details Date Type Department Care Team (Late st Contact Info) Description 11/14/2023 Multidisciplinary Ca re Committee [place] [address] Carmen Obrien MD [facility] [place] [address] Social History Tobacco Use Types Packs/Day Years [...] any time in the past 12 m [facility], were you homeless or living [...] AM EDT Office Visit Hematology/Oncology at [address] [phone] Antonio Brownlee MD [facility] [place] [address] Fani Haskins APRN [address] [place] [address] H[place]ATOLOGY [place] [address] 12/17/2023 9:00 AM EDT Infusion Hematology Oncology at [address] [phone] 12/17/2023 10:00 AM EDT Clinical Support Hematology/Oncology at [address] [phone] [facility] DR HEMATOLOGY [place] [address] 12/24/2023 10:40 AM EST Office Visit Cardiology at [address] [phone] Cory Sellers MD [facility] [place] [address] 12/30/2023 9:00 AM EST Office Visit Hematology/Oncology at [address] [phone] Antonio Brownlee MD [facility] [place] [address] Fani Haskins [facility] [address] [place] [address] DR HEMATOLOGY AND ONCOLOGY [place], [place] [id number] 12/30/2023 9:30 AM EST Infusion Hematology Oncology at [address] [phone] 04/04/2024 9:45 AM EST TH Visit (TeleHealth) Radiation Oncology at [address] [phone] Adrienne Singh PA [facility] DR [place] [address] documented as of this encounter Visit Diagnoses Not on filedocumented in this encounter Care Teams Wire Bound Box Machine Operator Relationship Specialty Start Date End Date Jez Vance MD [address] [place] [address] PCP - General 01/07/10 documented as of this encounter
--- OUTSIDE RECORDS SUMMARY | 2023-12-17 01:45 | XMS_ITS | Encounter Summary ---
Author Organization [facility] Address [facility] [place] [address] Care Team Providers Care Conditioner Tumbler Operator Name Role Phone Jez Vance MD Primary Care Provider [phone] [phone] Encounter Details Date Type Department Care Team (Late st Contact Info) Description 11/17/2023 Notes Only Hematology [place] [address] Larry Mike, [facility] Social History Tobacco Use Types Packs/Day Years [...] doctor or pharmacy? Never 11/04/2023 [facility] Utilities Answer Date Recorded In the past 12 months has [employer], gas, oil, or water [employer] threatened to shut off services in your [...] any time in the past 12 m [facility], were you homeless or [...] this encounter Progress Notes * Larry Mike, [facility] - 11/17/2023 12:10 PM EDT Clinical Oncology Pharmacist Note Oncology PGx Results PATIENT ID: Benny Zurita is a 83 y.o. male with pancreatic adenocarcinoma. The patient's currenttreatment plan includes: FOLFIRINOX. Pharmacist interpretation of Oncology PGx results is as follows: Interpretation: Gene Based on most recent FDA, CPIC (Clinical Pharmacogenetics Implementation Consortium), and DPWG([place] pharmacogenetics working group) guidelines: DPYD Intermediate metabolizer [...] is recommended. UGT1A1*1/*93 impact: The *93 allele ([id number]) is commonly seen in linkage with the [...] Belinostat, Irinotecan, and Sacituzumab govitecan-hziy (brand name TrodelvSaranas). Please do not hesitate to reach out with any questions. Larry Mike RPH 11/17/23 documented in this encounter Plan of Treatment Upcoming Encounters Date Type Department Care Team (Late st Contact Info) Description 12/17/2023 8:30 AM EDT Office Visit Hematology/Oncology at [address] [phone] Antonio Brownlee MD [facility] [place] [place] [address] Fani Haskins APRN [address] [place] [address] DR HEMATOLOGY AND ONCOLOGY [place], [place] [phone] 12/17/2023 9:00 AM EDT Infusion Hematology Oncology at [address] [phone] 12/17/2023 10:00 AM EDT Clinical Support Hematology/Oncology at [address] [phone] Nadege Howell, PALLAVI [facility] DR [place] [address] 12/24/2023 10:40 AM EST Office Visit Cardiology at [address] [phone] Cory Sellers MD [facility] [place] [address] 12/30/2023 9:00 AM EST Office Visit Hematology/Oncology at [address] [phone] Antonio Brownlee MD [facility] [place] [address] Fani Haskins APRN [address] [place] [address] DR HEMATOLOGY [place] [address] 12/30/2023 9:30 AM EST Infusion Hematology Oncology at [address] [phone] 04/04/2024 9:45 AM EST TH Visit (TeleHealth) Radiation Oncology at [address] [phone] Adrienne Signh PA [facility] DR [place] [address] documented as of this encounter Visit Diagnoses Not on filedocumented in this encounter Care Teams Conditioner Tumbler Operator Relationship Specialty Start Date End Date Jez Vance MD [address] [place] [address] PCP - General 01/07/10 documented as of this encounter
--- OUTSIDE RECORDS SUMMARY | 2023-12-17 01:45 | XMS_ITS | Encounter Summary ---
Author Organization [facility] [place] [address] Care Team Providers Care Sales And Service Advisor Name Role Phone Jez Vance MD Primary Care Provider [phone] [phone] Encounter Details Date Type Department Care Team (Latest Contact Info) Description 12/03/2023 9:00 AM EDT Clinical Support Hematology/Oncology at [address] [phone] Nadege Howell, PALLAVI [facility] DR H[place]AT[place] [address] Malignant neoplasm of head of pancreas Social [...] your doctor or pharmacy? Never 11/04/2023 [facility] Utilities Answer Date Recorded In the past 12 months has [employer], gas, oil, or water [employer] threatened to shut off services in your [...] living in a residential (including now)? No 11/04/2023 IPV Inpatient Questions [...] Progress Notes * Nadege Howell, RD - 12/03/2023 9:00 AM EDT Nutrition Note Spoke with Benny during treatment today. 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 Patient reports decreased appetite during first week of C1 and was only able to eat 1/2 his usual portions. Then the second week he was able to eat very well. Patient was started on Creon 24: 2 per meal and 1 per snack on 11/08. He is still having some gas, and BM's are soft-sergio but not diarrhea. BM's are brown in color (had been light prior to initiationof Creon). His weight has been stable for the past 5 weeks. Wt Readings from Last 10 Encounters: 12/03/23 84.1 kg (185 lb 6.4 oz) 11/19/23 84.1 kg (185 lb 6.4 oz) 11/12/23 83.5 kg (184 lb) 11/09/23 83.9 kg (185 lb) 10/25/23 83.9 kg (185 lb) 10/24/23 84.8 kg (186 lb 15.2 oz) 07/22/23 90.6 kg (199 lb 12.8 oz) 12/04/22 87.2 kg (192 lb 3.2 oz) 11/20/22 89.4 kg (197 lb) 11/13/22 89 kg (196 lb 3.2 oz) 07/22/2023 Oncology Vitals Weight (lb) 199 lb 12.8 oz BMI 26.6 Weight stable for past 5 weeks 10/23-12/02 (started treatment on 11/18) 14# loss in three months 07/21-10/24 (7.0% body weight) - not significant Diet: Eats 3 meals/day, follows regular diet. Drinks: juice, water, coffee, sometimes Ensure Plus 1/day in afternoon. Creon 24: 2 per meal, 1 per snack started on on 11/08 Medications: Compazine prn, Creon 24 (2 per meal and 1 per snack), Flomax, Simvastatin, Losartan, Singular, Ibuprofen Labs on 12/02: Ca 8.8, BG 166H, BUN 10, Creat 0.7, Alb 3.1, Tbili 0.48, AlkPhos 122, Na 142, K 3.7,AST 13, ALT 30 Nutrition Problem: Altered GI function related to LINDSAY in setting of pancreatic cancer as evidenced by light colored stools, gas, difficulty re-gaining weight. Continued gas + soft BM's, improvement in BM's becoming more dark in color Recommendations: Continue with regular diet, encouraged eating meals/snacks every 2-3 hours to maintain weight. Appetite/intake decreased during first week of cycle then improves the second week. Encouraged adequate hydration. Creon 24: increase to 3 per snack and 1 per meal for gas and continued loose stools (though darker in color now). Patient has high OOP cost for Creon but is not interested in applying for financial assistance as he has new insurance starting in February which should provide better coverage of Creon. Will f/u on 12/16 documented in this encounter Plan of Treatment Upcoming Encounters Date Type Department Care Team (Late st Contact Info) Description 12/17/2023 8:30 AM EDT Office Visit Hematology/Oncology at [address] [phone] Antonio Brownlee MD [facility] [place] [address] Fani Haskins APRN [address] [place] [address] DR HEMATOLOGY [place] [address] 12/17/2023 9:00 AM EDT Infusion Hematology Oncology at [address] [phone] 12/17/2023 10:00 AM EDT Clinical Support Hematology/Oncology at [address] [phone] [facility] DR HEMATOLOGY [place] [address] 12/24/2023 10:40 AM EST Office Visit Cardiology at [address] [phone] Cory Sellers MD [facility] [place] [address] 12/30/2023 9:00 AM EST Office Visit Hematology/Oncology at [address] [phone] Antonio Brownlee MD [facility] [place] [place] [address] Fani Haskins APRN [address] [place] [address] DR HEMATOLOGY AND ONCOLOGY [place], [place] [address] 12/30/2023 9:30 AM EST Infusion Hematology Oncology at [address] [phone] 04/04/2024 9:45 AM EST TH Visit (TeleHealth) Radiation Oncology at [address] [phone] Adrienne Singh PA [facility] DR HEMATOLOGY [place] [address] documented as of this encounter Visit Diagnoses Diagnosis Malignant neoplasm of head of pancreas Malignant neoplasm of head of pancreas documented in this encounter Care Teams Sales And Service Advisor Relationship Specialty Start Date End Date Jez Vance MD [address] [place] [address] PCP - General 01/07/10 documented as of this encounter
--- OUTSIDE RECORDS SUMMARY | 2023-12-17 01:45 | XMS_ITS | Encounter Summary ---
Author Organization [facility] Address [facility] [place] [address] Care Team Providers Care Counter Attendant Name Role Phone Jez Vance MD Primary Care Provider [phone] [phone] Encounter Details Date Type Department Care Team (Late st Contact Info) Description 12/02/2023 Orders Only [place]ematology [place] [address] Antonio Brownlee MD [facility] [place] [address] Social History Tobacco Use Types Packs/Day Years [...] in a residential (including now)? No 11/04/2023 [facility] IPV Inpatient [...] AM EDT Office Visit Hematology/Oncology at [address] [phone] Antonio Brownlee MD [facility] [place] [address] HEMATOLOGY AND ONCOLOGY [place], [place] [phone] 12/17/2023 9:00 AM EDT Infusion Hematology Oncology at [address] [phone] 12/17/2023 10:00 AM EDT Clinical Support Hematology/Oncology at [address] [phone] [facility] DR [place] [address] 12/24/2023 10:40 AM EST Office Visit Cardiology at [address] [phone] Cory Sellers MD [facility] [place] [address] 12/30/2023 9:00 AM EST Office Visit Hematology/Oncology at [address] [phone] Antonio Brownlee MD [facility] [place] [address] Fani Haskins, [address] HEMATOLOGY AND ONCOLOGY [place], [place] [id number] 12/30/2023 9:30 AM EST Infusion Hematology Oncology at [address] [phone] 04/04/2024 9:45 AM EST TH Visit (TeleHealth) Radiation Oncology at [address] [phone] Adrienne Singh PA [facility] DR [place] [address] documented as of this encounter Visit Diagnoses Not on filedocumented in this encounter Care Teams Counter Attendant Relationship Specialty Start Date End Date Jez Vance MD [address] [place] [address] PCP - General 01/07/10 documented as of this encounter
--- OUTSIDE RECORDS SUMMARY | 2023-12-17 01:45 | XMS_ITS | Encounter Summary ---
Author Organization [facility] Address [facility] [place] [address] Care Team Providers Care Machine Engraver Name Role Phone Jez Vance MD Primary Care Provider [phone] [phone] Encounter Details Date Type Department Care Team (Latest Contact Info) Description 12/03/2023 Travel Social History Tobacco Use Types Packs/Day [...] from your doctor or pharmacy? Never 11/04/2023 [facility] Utilities Answer Date Recorded In [...] living in a retirement (including now)? No 11/04/2023 IPV Inpatient Questions [...] 8:30 AM EDT Office Visit Hematology/Oncology at [address] [phone] Antonio Brownlee MD [facility] [address] Fani Haskins APRN [address] [place] [address] DR HEMATOLOGY AND ONCOLOGY [place], [place] [id number] 12/17/2023 9:00 AM EDT Infusion Hematology Oncology at [address] [phone] 12/17/2023 10:00 AM EDT Clinical Support Hematology/Oncology at [address] [phone] [facility] DR [place] [address] 12/24/2023 10:40 AM EST Office Visit Cardiology at [address] [phone] Cory Sellers MD [facility] [place] [address] 12/30/2023 9:00 AM EST Office Visit Hematology/Oncology at [address] [phone] Antonio Brownlee MD [facility] [place] [address] F[address] Haskins [address] HEMATOLOGY AND ONCOLOGY [place], [place] [phone] 12/30/2023 9:30 AM EST Infusion Hematology Oncology at [address] [phone] 04/04/2024 9:45 AM EST TH Visit (TeleHealth) Radiation Oncology at [address] [phone] Adrienne Singh PA [facility] [place] [address] documented as of this encounter Visit Diagnoses Not on filedocumented in this encounter Care Teams Machine Engraver Relationship Specialty Start Date End Date Jez Vance MD [address] [place] [address] PCP - General 01/07/10 documented as of this encounter
--- OUTSIDE RECORDS SUMMARY | 2023-12-17 01:45 | XMS_ITS | Encounter Summary ---
Author Organization [facility] Address [facility] [place] [address] Care Team Providers Care Emergency Management Director Name Role Phone Jez Vance MD Primary Care Provider [phone] [phone] Reason for Visit * Reason Comments Chemotherapy Injections * Treatment/Therapy Plan Authorization (Routine) - Authorized Specialty Diagnoses / Procedures Referred By Deena yao Referred To Contact Diagnoses Malignant neoplasm of head of pancreas Procedures INFUSION Antonio Brownlee MD [facility] [place] [address] Stj Hem Onc Infusion [address] [place] [phone] Referral ID Status Reason Start Date Expiration Date V isits Requested Visits Authorized [id number] Authorized 11/09/2023 11/08/2024 1 99 Encounter Details Date Type Department Care Team (Late st Contact Info) Description 12/03/2023 8:30 AM EDT Infusion Hematology Oncology at [address] [phone] Malignant neoplasm of head of pancreas; Malignant [...] doctor or pharmacy? Never 11/04/2023 [facility] Utilities Answer Date Recorded In the [...] any time in the past 12 m [facility], were you homeless or living [...] of this encounter Progress Notes * Marbella Hermosillo, RN - 12/03/2023 8:30 AM EDT INFUSION THERAPY ADMINISTRATION NOTES DIAGNOSIS: Pancreas CYCLE #: C2D1 REASON FOR VISIT: Lupron injection and FOLFIRINOX infusion and initiation of continunous home 5FU infusion via CADD pump provided by [employer] SUBJECTIVE Benny offers no complaints, he met with Dr. Brownlee prior to infusion, ready for treatment. OBJECTIVE [...] infusion chemotherapy via CADD pump provided by [employer]. Amount infused verified by double RN check after 15 minutes and appropriate amount had infused. REACTIONS (DESCRIPTION, TIME, INTERVENTION AND EFFECTIVENESS) none ASSESSMENT Benny was awake, alert and tolerated treatment well. Lupron injection administered in right gluteal Patient instructed on side effects of Lupron. Patient states understanding of teaching, Patient aware to call clinic with any questions or concerns. Pt. chemo teaching instructions included: During clinic hours (8am-5pm Wednesday-Wednesday): pt. can call [phone] with questions or concerns. After clinic hours (5pm-8am Wednesday-Wednesday and weekends) pt can call [phone] and ask for the peer financial counselor/oncologist tobacco prevention health educator. Benny Zurita verbalized understanding of potential chemotherapy [...] for home useafter chemotherapy. PLAN Disconnect at [facility] on Monday 12/04 at 1115. documented in this encounter Plan of Treatment Upcoming Encounters Date Type Department Care Team (Late st Contact Info) Description 12/17/2023 8:30 AM EDT Office Visit Hematology/Oncology at [address] [phone] Antonio Brownlee MD [facility] [place] [address] Fani Haskins APRN [address] [place] [address] DR HEMATOLOGY AND ONCOLOGY [place], [place] [id number] 12/17/2023 9:00 AM EDT Infusion Hematology Oncology at [address] [phone] 12/17/2023 10:00 AM EDT Clinical Support Hematology/Oncology at [address] [phone] [facility] [place] [address] 12/24/2023 10:40 AM EST Office Visit Cardiology at [address] [phone] Cory Sellers MD [facility] [place] [address] 12/30/2023 9:00 AM EST Office Visit Hematology/Oncology at [address] [phone] 68 Antonio Brownlee MD [facility] [place] [address] Fani Haskins APRN [address] [place] [address] DR HEMATOLOGY AND ONCOLOGY [place], [place] [id number] 12/30/2023 9:30 AM EST Infusion Hematology Oncology at [address] [phone] 04/04/2024 9:45 AM EST TH Visit (TeleHealth) Radiation Oncology at [address] [phone] Adrienne Singh PA [facility] DR [place] [address] documented as of this encounter Visit Diagnoses [...] over 2 Minutes, ONCE, 1 dose, On Wed12/03/23 at 0845, Alternative administration of IV push over 2 minutes is a recommendation from the electro tech. Administer prior to chemotherapy., Routine Given 12/03/2023 8:47 AM EDT 130 mg atropine (0.1 mg/mL) injection 0.5 mg 0.5 mg, Intravenous, Administer over 1 Minutes, ONCE, 1 dose, On Wed12/03/23 at 0845, Administer prior to IRINOtecan, Routine Given 12/03/2023 11:30 AM EDT 0.5 mg dexAMETHasone (Decadron) tablet 10 mg 10 mg, Oral, ONCE, 1 dose, On Wed12/03/23 at 0915, Administer prior to chemotherapy, Routine Given 12/03/2023 8:39 AM EDT 10 mg fluorouraciL (AdruciL) in sodium chloride 0.9% 138 mL infusion (46 Hour - For Home Use) 2,424 mg 2,424 mg (1,200 mg/m2/dose ? 2.02 m2 Treatment Plan BSA from Recorded weight), Intravenous, ONCE, 1 dose, On Wed12/03/23 at 1315, Administer over 46 Hours, Warning Vesicant/Irritant Medication To be infused via an ambulatory infusion CADD Díaz pump continuously IV at 3 mL/hr for 46 hours. Pump provides 1200 mg/m2 IV over 46 hours. Given 12/03/2023 1:16 PM EDT 2,424 mg 3 mL/hr IRINOtecan (Camptosar) 300 mg in dextrose 5% 515 mL infusion 300 mg (rounded from 303 mg = 150 mg/m2/dose ? 2.02 m2 Treatment Plan BSA from Recorded weight), Intravenous, ONCE, 1 dose, On Wed12/03/23 at 0945, Administer over 90 Minutes, Warning Vesicant/Irritant Medication Administer 30 minutes after the start of the leucovorin. New Bag 12/03/2023 11:31 AM EDT 300 mg 343.3 mL/hr leucovorin (Wellcovorin) 350 mg in dextrose 5% 85 mL infusion 350 mg, Intravenous, ONCE, 1 dose, On Wed12/03/23 at 0945, Administer over 120 Minutes, Administer upon completion of OXALIplatin infusion. Do not administer at a rate faster than 160 milligrams/minute. New Bag 12/03/2023 11:03 AM EDT 350 mg 42.5 mL/hr leuprolide (Lupron Depot) 22.5 mg (3 month) intramuscular syringe kit 22.5 mg 22.5 mg, Intramuscular, ONCE, 1 dose, On Wed12/03/23 at 0915, Routine, This agent is restricted to outpatient use. Is this drug being given as an outpatient? Yes Given 12/03/2023 1:14 PM EDT 22.5 mg Right Gluteal OXALIplatin (Eloxatin) 172 mg in dextrose 5% 284.4 mL infusion 172 mg (rounded from 171.7 mg = 85 mg/m2/dose ? 2.02 m2 Treatment Plan BSA from Recorded weight), Intravenous, ONCE, 1 dose, On Wed12/03/23 at 0945, Administer over 85 Minutes, Administer first. Compatible with dextrose-containing solution only. Warning Vesicant/Irritant Medication New Bag 12/03/2023 9:24 AM EDT 172 mg 200.8 mL/hr palonosetron (Aloxi) (0.05 mg/mL) injection 0.25 mg 0.25 mg, Intravenous, ONCE, 1 dose, On Wed12/03/23 at 0845, Administer over 30 seconds., Routine Given 12/03/2023 8:45 AM EDT 0.25 mg documented in this encounter Care Teams Emergency Management Director Relationship Specialty Start Date End Date Jez Vance MD [address] [place] [address] PCP - General 01/07/10 documented as of this encounter
--- OUTSIDE RECORDS SUMMARY | 2023-12-17 01:45 | XMS_ITS | Encounter Summary ---
Author Organization [facility] Address [facility] [place] [address] Care Team Providers Care Dust Box Tender Name Role Phone Jez Vance MD Primary Care Provider [phone] Encounter Details Date Type Department Care Team [...] from your doctor or pharmacy? Never 11/04/2023 [facility] Utilities Answer Date Recorded In [...] time in the past 12 m [facility], were you homeless or living in a fdc (including now)? No 11/04/2023 IPV Inpatient Questions [...] AM EDT Office Visit Hematology/Oncology at [address] [phone] Antonio Brownlee MD [facility] [place] [address] Fani Haskins APRN [address] [place] [address] DR HEMATOLOGY AND ONCOLOGY [place], [place] [id number] 12/17/2023 9:00 AM EDT Infusion Hematology Oncology at [address] [phone] 12/17/2023 10:00 AM EDT Clinical Support Hematology/Oncology at [address] [phone] [facility] DR HEMATOLOGY [place] [address] 12/24/2023 10:40 AM EST Office Visit Cardiology at [address] [phone] Cory Sellers MD [facility] [place] [address] 12/30/2023 9:00 AM EST Office Visit Hematology/Oncology at [address] [phone] Antonio Brownlee MD [facility] [place] [address] Fani Haskins [address] HEMATOLOGY AND ONCOLOGY [place], [place] [phone] 12/30/2023 9:30 AM EST Infusion Hematology Oncology at [address] [phone] 04/04/2024 9:45 AM EST TH Visit (TeleHealth) Radiation Oncology at [address] [phone] Adrienne Singh PA [facility] HEMATOLOGY [place] [address] documented as of this encounter Visit Diagnoses Not on filedocumented in this encounter Care Teams Dust Box Tender Relationship Specialty Start Date End Date Jez Vance MD [address] [place] [address] PCP - General 01/07/10 documented as of this encounter
--- OUTSIDE RECORDS SUMMARY | 2023-12-17 01:45 | XMS_ITS | Encounter Summary ---
Author Organization [facility] Address [facility] [place] [address] Care Team Providers Care Electrical Tryout Person Name Role Phone Jez Vance MD Primary Care Provider [phone] [phone] Encounter Details Date Type Department Care Team (Late st Contact Info) Description 11/19/2023 10:00 AM EDT Office Visit Hematology/Oncology at [address] [phone] Antonio Brownlee MD [facility] [place] [address] Fani Haskins [address] HEMATOLOGY AND ONCOLOGY [place], [place] [phone] Malignant neoplasm of head of pancreas; Chemotherapy [...] from your doctor or pharmacy? Never 11/04/2023 [facility] Utilities Answer Date Recorded In the [...] any time in the past 12 m [facility], were you homeless or [...] but tires easily. 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 [place] Fam Hx: Father - Mother - Sibs [...] CA 19-9 11/17/23 181 11/12/23 110 (at [facility]) 10/21/23 79 (at [facility]) PGX Assessment and Plan Benny Zurita is [...] AM EDT Office Visit Hematology/Oncology at [address] [phone] Antonio Brownlee MD [facility] [place] [address] Fani Haskins APRN [address] [place] [address] DR HEMATOLOGY AND ONCOLOGY [place], [place] [id number] 12/17/2023 9:00 AM EDT Infusion Hematology Oncology at [address] [phone] 12/17/2023 10:00 AM EDT Clinical Support Hematology/Oncology at [address] [phone] [facility] DR HEMATOLOGY [place] [address] 12/24/2023 10:40 AM EST Office Visit Cardiology at [address] [phone] Cory Sellers MD [facility] [place] [place] [address] 12/30/2023 9:00 AM EST Office Visit Hematology/Oncology at [address] [phone] Antonio Brownlee MD [facility] [place] [address] Fani Haskins [address] HEMATOLOGY AND ONCOLOGY [place], [place] [phone] 12/30/2023 9:30 AM EST Infusion Hematology Oncology at [address] [phone] 04/04/2024 9:45 AM EST TH Visit (TeleHealth) Radiation Oncology at [address] [phone] Adrienne Singh PA [facility] DR HEMATOLOG[place] [address] documented as of this encounter Visit Diagnoses Diagnosis Malignant neoplasm of head of pancreas Chemotherapy induced nausea and vomiting Nausea with vomiting Malignant neoplasm of head of pancreas documented in this encounter Care Teams Electrical Tryout Person Relationship Specialty Start Date End Date Jez Vance MD [address] [place] [address] PCP - General 01/07/10 documented as of this encounter
--- OUTSIDE RECORDS SUMMARY | 2023-12-17 01:45 | XMS_ITS | Encounter Summary ---
Author Organization [facility] Address [facility] [place] [address] Care Team Providers Care Wool Hat Flanger Name Role Phone Jez Vance MD Primary Care Provider [phone] [phone] Reason for Referral * Consultation (Urgent) - Authorized Specialty Diagnoses / Procedures Referred By Deena yao Referred To Contact Cardiology Diagnoses PSVT (paroxysmal supraventricular tachycardia) PT NEEDS CARDIAC CLEARANCE FOR WHIPPLE PROC IN FEB AT [facility]. PT HAS BEEN HAVING PSVT. NEEDS TO SEE CARDIO TO SEE IF MEDS ARE NEEDED PRIOR TO SURG. HAVE SENT RECENT ECHO AND ZIO REPORTS Jez Vance MD [address] [place] [address] [facility] Cardiology [address] [place] [address] Referral ID Status Reason Start Date Expiration Date Visits Requested Visits Authorized [id number] Authorized Consult, Test & Treat PCP Updated and/or Approved 4 12/14/2024 6 6 Encounter Details Date Type Department Care Team (Latest Contact Info) Description 12/15/2023 Transcribe Orders eDH Incoming Referrals [phone] Jez Vance MD [address] [place], [place] [id number] PSVT (paroxysmal supraventricular tachycardia) Social History Tobacco Use Types Packs/Day Years [...] your doctor or pharmacy? Never 11/04/2023 [facility] Utilities Answer Date Recorded In [...] in the past 12 m [facility], were you homeless [...] AM EDT Office Visit Hematology/Oncology at [address] [phone] Antonio Brownlee MD [facility] [place] [address] Fani Haskins APRN [address] [place] [address] DR HEMATOLOGY AND ONCOLOGY [place], [place] [address] 12/17/2023 9:00 AM EDT Infusion Hematology Oncology at [address] [phone] 12/17/2023 10:00 AM EDT Clinical Support Hematology/Oncology at [address] [phone] [facility] HEMATOLOGY [place] [address] 12/24/2023 10:40 AM EST Office Visit Cardiology at [address] [phone] Cory Sellers MD [facility] [place] [address] 12/30/2023 9:00 AM EST Office Visit Hematology/Oncology at [address] [phone] Antonio Brownlee MD [facility] [place] [address] Fani Haskins APRN [address] [place] [address] DR HEMATOLOGY AND ONCOLOGY [place], [place] [address] 12/30/2023 9:30 AM EST Infusion Hematology Oncology at [address] [phone] 04/04/2024 9:45 AM EST TH Visit (TeleHealth) Radiation Oncology at [address] [phone] Adrienne Singh PA [facility] DR [place] [address] Scheduled Referrals Name Type Priority Associated Diagnoses Orde r Schedule Referral to Cardiology Outpatient Referral Urgent PSVT (paroxysmal supraventricular tachycardia) Ordered: 12/15/2023 documented as of this encounter Visit Diagnoses Diagnosis PSVT (paroxysmal supraventricular tachycardia) Paroxysmal supraventricular tachycardia Malignant neoplasm of head of pancreas documented in this encounter Care Teams Wool Hat Flanger Relationship Specialty Start Date End Date Jez Vance MD [address] [place] [address] PCP - General 01/07/10 documented as of this encounter
--- OUTSIDE RECORDS SUMMARY | 2023-12-17 01:45 | XMS_ITS | Encounter Summary ---
Author Organization [facility] Address [facility] [place] [address] Care Team Providers Care Erisa Attorney Name Role Phone Jez Vance MD Primary Care Provider [phone] [phone] Reason for Visit * Reason Comments Chemotherapy * Treatment/Therapy Plan Authorization (Routine) - Authorized Specialty Diagnoses / Procedures Referred By Deena yao Referred To Contact Diagnoses Malignant neoplasm of head of pancreas Procedures INFUSION Antonio Brownlee MD [facility] [place] [address] Stj Hem Onc Infusion [address] [place] [phone] Referral ID Status Reason Start Date Expiration Date V isits Requested Visits Authorized [id number] Authorized 11/09/2023 11/08/2024 1 99 Encounter Details Date Type Department Care Team (Late st Contact Info) Description 11/19/2023 10:30 AM EDT Infusion Hematology Oncology at [address] [phone] Malignant neoplasm of head of [...] your doctor or pharmacy? Never 11/04/2023 [facility] Utilities Answer Date Recorded In [...] time in the past 12 m [facility], were you homeless or living [...] Progress Notes * Marbella Hermosillo, RN - 11/19/2023 10:30 AM EDT INFUSION [...] height, weight and BSA by Marbella Hermosillo, RN and staff pharmacists. At time of administration [...] clinic hours (8am-5pm Wednesday-Wednesday): pt. can call [phone] with questions or concerns. After clinic hours (5pm-8am Wednesday-Wednesday and weekends) pt can call [phone] and ask for the wheel setter/oncologist acquisitions analyst. Benny Zurita verbalized understanding of potential chemotherapy [...] 8:30 AM EDT Office Visit Hematology/Oncology at [address] [phone] Antonio Brownlee MD [facility] [place] [address] [address] HEMATOLOGY AND ONCOLOGY [place], [place] [id number] 12/17/2023 9:00 AM EDT Infusion Hematology Oncology at [address] [phone] 12/17/2023 10:00 AM EDT Clinical Support Hematology/Oncology at [address] [phone] [facility] DR [place] [address] 12/24/2023 10:40 AM EST Office Visit Cardiology at [address] [phone] Cory Sellers MD [facility] [place] [address] 12/30/2023 9:00 AM EST Office Visit Hematology/Oncology at [address] [phone] Antonio Brownlee MD [facility] [place] [address] F[address]askins [address] HEMATOLOGY AND ONCOLOGY [place], [place] [phone] 12/30/2023 9:30 AM EST Infusion Hematology Oncology at [address] [phone] 04/04/2024 9:45 AM EST TH Visit (TeleHealth) Radiation Oncology at [address] [phone] Adrienne Singh PA [facility] DR HEMATOLOGY [place] [address] documented as of this encounter Visit Diagnoses [...] 2 minutes is a recommendation from the automation/controls manager. Administer prior to chemotherapy., Routine Given 11/19/2023 [...] mg documented in this encounter Care Teams Erisa Attorney Relationship Specialty Start Date End Date Jez Vance MD [address] [place] [address] PCP - General 01/07/10 documented as of this encounter
--- OUTSIDE RECORDS SUMMARY | 2023-12-17 01:45 | XMS_ITS | Encounter Summary ---
[facility] Organization [facility] Address [facility] [place] [address] Care Team Providers Care Network Architect Manager Name Role Phone Jez Vance MD Primary Care Provider [phone] [phone] Encounter Details Date Type Department Care Team (Latest Contact Info) Description 12/09/2023 10:00 AM EDT TH Visit (TeleHealth) Hematology/Oncology at [address] [phone] Malignant neoplasm of head of [...] from your doctor or pharmacy? Never 11/04/2023 [facility] Utilities Answer Date Recorded In the [...] any time in the past 12 m [facility], were you homeless or [...] as of this encounter Progress Notes * Lanny Marshall, [facility] - 12/09/2023 10:00 AM EDT Oncology Clinical Pharmacist Consultation: Cycle 2, Day 1 follow-up Visit Type: Telehealth Subjective: Patient ID: Benny Zurita is an 83 y.o. male diagnosed with pancreatic adenocarcinoma who received cycle 2, day 1 of FOLFIRINOX on 12/03/23. Chemotherapy regimen including supportive care was reviewed during the telephone office visit with the patient. Allergies and Drug intolerance: Allergies Allergen Reactions Capecitabine Other (See Comments) Intermediate metabolizer. See pharmacist note from 11/17/2023 for dosing recommendations. Fluorouracil Other (See Comments) Intermediate metabolizer. See pharmacist note from 11/17/2023 for dosing recommendations. Tegafur Other (See Comments) Intermediate metabolizer. See pharmacist note from 11/17/2023 for dosing recommendations. Chemotherapy Regimen includes the following agents: Oxaliplatin 85 mg/m2 (172 mg) IV every 14 days Irinotecan 150 mg/m2 (300 mg) IV every 14 days Fluorouracil 1200 mg/m2 (2424 mg) continuous IV infusion over 46 hours every 14 days Current Supportive Care Regimen Administered in Clinic on Day of Treatment: Aprepitant 130 mg IV pre-chemotherapy Palonosetron 0.25 mg IV pre-chemotherapy Dexamethasone 10 mg IV/PO pre-chemotherapy Atropine 0.5 mg IV pre-irinotecan Leucovorin 350 mg IV Current Home Supportive Care Regimen: Prochlorperazine 10 mg PO every 6 hours as needed Common side effects of this regimen include, but are not limited to: Decreased white and red blood cell counts (increased risk for infection/bleeding) Cold sensitivity/peripheral neuropathy Diarrhea/constipation Increased bodily fluid production (particularly sweat, tears, saliva, runny nose) Nausea/vomiting (generally mild) Decreased appetite Fatigue Hair thinning/loss Mucositis Eye/vision changes Patient reports the following side effects during cycle 1: Fatigue Mucositis Decreased appetite/weight loss Assessment and Recommendations: Assessment Benny Zurita is an 83 y.o. male diagnosed with pancreatic adenocarcinoma who received cycle 2, day 1 of FOLFIRINOX on 12/03/23. Benny reported the following side effects: mild fatigue, mild mouth sore, mild weight loss. The chemotherapy schedule, supportive care, common side effects, and ways tomanage side effects were discussed with the patient during the telephone office visit today. The following side effect mitigation and management strategies were discussed with the patient: eBnny reports feeling extremely fatigued during Day1-3 of his treatment. I reassured him this is completely normal and to rest as much as he needs. Benny states his fatigue does not generally carry into the following days and to contact us if he feels it starts affecting his ability to care for himself. Benny reported having one mouth sore that is somewhat bothersome but mild. I recommended trying a baking soda rinse 1-3 times a day and to avoid spicy and acidic foods as much as possible. Benny's biggest concern was weight loss. We talked about adding protein shakes into his daily diet which he has at home and will try. His appetite although decreased during cycle 1 has improved sincethen and reports eating about 75% of his meals. Benny is not using his compazine but I reminded himthat it may be helpful especially during the first few days of treatment to curb any nausea that could be affecting his appetite. Additional Recommendations: Benny has historically been a big coffee drinker but stopped. I assured him that it's still okay todrink and to have a cup in the morning that he very much enjoys which may help with his mild fatigue. I reinforced to stay adequately hydrated with non-caffeine fluids through out the day and to use the baking soda rinse afterwards to help with his mild mouth sore as coffee can be irritating given its acidity. F/u needed? yes - Benny would like to meet again after Cycle 3. Benny was provided with clinic pharmacist contact information. Pt understands no changes to current drug regimen were made at the appointment and that [facility] is providing recommendations for provider review and follow up. Lanny Marshall RPH 12/09/23 20 minutes were spent providing patient education. documented in this encounter Plan of Treatment Upcoming Encounters Date Type Department Care Team (Late st Contact Info) Description 12/17/2023 8:30 AM EDT Office Visit Hematology/Oncology at [address] [phone] Antonio Brownlee MD [facility] [place] [address] Fani Haskins APRN [address] [place] [address] [place] [address] 12/17/2023 9:00 AM EDT Infusion Hematology Oncology at [address] [phone] 12/17/2023 10:00 AM EDT Clinical Support Hematology/Oncology at [address] [phone] [facility] DR [place] [address] 12/24/2023 10:40 AM EST Office Visit Cardiology at [address] [phone] Cory Sellers MD [facility] [place] [address] 12/30/2023 9:00 AM EST Office Visit Hematology/Oncology at [address] [phone] Antonio Brownlee MD [facility] [place] [address] Fani Haskins [address] HEMATOLOGY AND ONCOLOGY [place], [place] [phone] 12/30/2023 9:30 AM EST Infusion Hematology Oncology at [address] [phone] 04/04/2024 9:45 AM EST TH Visit (TeleHealth) Radiation Oncology at [address] [phone] Adrienne Singh PA [facility] DR [place] [address] documented as of this encounter Visit Diagnoses Diagnosis 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
--- OUTSIDE RECORDS SUMMARY | 2023-12-17 01:45 | XMS_ITS | Encounter Summary ---
Author Organization [facility] Address [facility] [place] [address] Care Team Providers Care Lpn Cma Name Role Phone Jez Vance MD Primary Care Provider [phone] [phone] Encounter Details Date Type Department Care Team (Late st Contact Info) Description 11/24/2023 Interpretation Only [address] [phone] Jez Vance MD [address] [place] [address] Social History Tobacco Use Types Packs/Day Years [...] from your doctor or pharmacy? Never 11/04/2023 [facility] Utilities Answer Date Recorded In the [...] any time in the past 12 m [facility], were you homeless or living [...] 8:30 AM EDT Office Visit Hematology/Oncology at [address] [phone] Antonio Brownlee MD [facility] [place] [address] Fani Haskins, [address] HEMATOLOGY AND ONCOLOGY [place], [place] [address] 12/17/2023 9:00 AM EDT Infusion Hematology Oncology at [address] [phone] 12/17/2023 10:00 AM EDT Clinical Support Hematology/Oncology at [address] [phone] [facility] DR H[place]AT[place] [address] 12/24/2023 10:40 AM EST Office Visit Cardiology at [address] [phone] Cory Sellers MD [facility] [place] [address] 12/30/2023 9:00 AM EST Office Visit Hematology/Oncology at [address] [phone] Antonio Brownlee MD [facility] [place] [address] Fani Haskins, [address] HEMATOLOGY AND ONCOLOGY [place], [place] [address] 12/30/2023 9:30 AM EST Infusion Hematology Oncology at [address] [phone] 04/04/2024 9:45 AM EST TH Visit (TeleHealth) Radiation Oncology at [address] [phone] Adrienne Singh PA [facility] DR [place] [address] Pending Results Name Type Priority Associated Diagnoses Date /Time US Echocardiogram Imaging Routine 024 10:00 AM EDT documented as of this encounter Visit Diagnoses Not on filedocumented in this encounter Care Teams Lpn Cma Relationship Specialty Start Date End Date Jez Vance MD [address] [place] [address] PCP - General 01/07/10 documented as of this encounter
--- OUTSIDE RECORDS SUMMARY | 2023-12-17 01:46 | XMS_ITS | Encounter Summary ---
Author Organization [facility] Address [facility] [place] [address] Care Team Providers Care Position Classification Specialist Name Role Phone Jez Vance MD Primary Care Provider [phone] Encounter Details Date Type Department Care Team (Late st Contact Info) Description 11/12/2023 9:29 AM EDT - 11/12/2023 11:14 AM EDT Surgery [place] [phone] Carmen Obrien MD [facility] [place] [address] [email or web address],TUNN ELED, WITH SQ PORT OR PUMP [...] from your doctor or pharmacy? Never 11/04/2023 [facility] Utilities Answer Date Recorded In the [...] any time in the past 12 m [facility], were you homeless or living in a correction (including now)? No 11/04/2023 IPV Inpatient Questions [...] closest emergency room or call the hospital photo booth operator at [phone] and ask for physician railroad crossing protection maintainer covering for your physician. Questions or problems after 5pm or on a weekend: Call the [facility] photo booth operator at and ask for the physician railroad crossing protection maintainer covering for your doctor. * Patient Instructions* [...] please call the surgery clinic nurses at [phone]. If you have any concerns at night or when the clinic is closed then please call the main [facility] number and ask to speak with the general surgery resident railroad crossing protection maintainer. That number is [phone]. Dr. Obrien will see you back after you finish the neoadjuvant therapy. documented in this encounter Medications at Time of Discharge Medication Sig Dispensed Refills Start Date End Date htfjlk-yhixmptl-lbicmzl () 24,000-76,000 -120,000 unit capsuleIndications:Malign ant neoplasm of [...] in the preoperative holding area at the [facility]. He is here today with his -Scar. We discussed a plan to proceed with a laparoscopy to complete the staging workup and the Mediport placement to facilitate systemic chemotherapy with Dr. Brownlee. Informed consent was obtained. Shorty Obrien MD 11/12/2023 9:51 AM documented in this encounter Miscellaneous Notes * Op Note - Carmen Obrien MD - 11/12/2023 10:13 AM EDT [facility] Operative Note Patient Name: Benny Zurita : [id number] MR#: [id number] Case Date: 11/12/2023 Surgeon: Surgeons and Role: [...] AM EDT Office Visit Hematology/Oncology at [address] [phone] Antonio Brownlee MD [facility] [address] Fani Haskins APRN [address] [place] [address] DR HEMATOLOGY AND ONCOLOGY [place], [place] [phone] 12/17/2023 9:00 AM EDT Infusion Hematology Oncology at [address] [phone] 12/17/2023 10:00 AM EDT Clinical Support Hematology/Oncology at [address] [phone] [facility] HEMATOLOGY [place] [address] 12/24/2023 10:40 AM EST Office Visit Cardiology at [address] [phone] Cory Sellers MD [facility] [place] [address] 12/30/2023 9:00 AM EST Office Visit Hematology/Oncology at [address] [phone] Antonio Brownlee MD [facility] [address] Fani Haskins APRN [address] [place] [address] DR HEMATOLOGY AND ONCOLOGY [place], [place] [phone] 12/30/2023 9:30 AM EST Infusion Hematology Oncology at [address] [phone] 04/04/2024 9:45 AM EST TH Visit (TeleHealth) Radiation Oncology at [address] [phone] Adrienne Singh PA [facility] DR [place]ATOLOGY [place] [address] documented as of this encounter Procedures Procedure Name Priority Date/Time Associated Diagnosis Comments XR CHEST ONE VIEW Routine 11/12/2023 11: 33 AM EDT EKG 12-LEAD STAT 11/12/2023 11:23 AM EDT Cardiac arrhythmia, unspecified cardiac arrhythmia type XR FLUORO NO RAD <1HR - OR USE Routine 11/12/2023 10:35 AM EDT Fluoroscopy Exam Up To [facility] Hr [facility] ([id number]) Yes 11/12/2023 9:38 AM EDT [facility] Insert Tunneled CV Cath w SubQ Port, Age 5 Yrs or Older (35023) Yes 11/12/2023 9:38 AM EDT [facility] Lap, Diagnostic Abdomen (23755) Yes 11/12/2023 9:38 AM EDT [facility] documented in this encounter Results * XR Chest One View (11/12/2023 11:33 AM EDT) WORKSTATION ID [id number] RAD Anatomical Region Laterality Modality Chest N/A [...] questions please contact the health lawn care worker that requested your imaging first. ? [...] have questions please contactthe health lawn care worker that requested your imaging first. Electronically signed by: Elton Marshall MD, [facility]([phone]), at 11/12/2023 3:22 PM Carmen Obrien MD IMG DX ORDERABLES * EKG 12 Lead (11/12/2023 11:23 AM EDT) Ventricular rate 55 BPM MUSE SYSTEM Atrial Rate 55 BPM MUSE SYSTEM P-R Interval 150 ms MUSE SYSTEM QRS Duration 108 ms MUSE SYSTEM Q-T Interval 496 ms MUSE SYSTEM QTC Calculated (Bezet) 474 ms MUSE SYSTEM Calculated P Graford 49 degrees MUSE SYSTEM Calculated R Graford -55 degrees MUSE SYSTEM Calculated T Graford 8 degrees MUSE SYSTEM INTERPRETATION Sinus bradycardia with Premature atrial complexes in a pattern of bigeminy Left anterior fascicular block Abnormal ECG When compared with ECG of 23-OCT-2023 13:40, Premature atrial complexes are now Present Confirmed by MD Devin, Clyde Rasmussen ([id number]) on 11/12/2023 12:06:49 PM MUSE SYSTEM 11/12/2023 [...] (New Bag - Prov ider: Anjum Saul, SUPERINTENDENT CEMETERY) PRN Medication Order 11/10/2023 11/11/2023 11/12/2023 BUPivacaine [...] Comment: 1000 units mixed with 100ml of qj6432 units mixed with 10ml of ns) documented in this encounter Care Teams Position Classification Specialist Relationship Specialty Start Date End Date Jez Vance MD [address] [place] [address] PCP - General 01/07/10 documented as of this encounter
--- OUTSIDE RECORDS SUMMARY | 2023-12-17 01:46 | XMS_ITS | Encounter Summary ---
Author Organization [facility] Address [facility] [place] [address] Care Team Providers Care Disk Grinder Name Role Phone Jez Vance MD Primary Care Provider [phone] [phone] Encounter Details Date Type Department Care Team (Late st Contact Info) Description 10/29/2023 Telephone [place] [address] Carmen Obrien MD [facility] [address] Social History Tobacco Use Types Packs/Day Years Used Date Smoking Tobacco: Never Smokeless Tobacco: Never Alcohol Use Standard Drinks/Week Comments Yes 1 (1 standard drink = 0.6 oz pur e alcohol) social drinker once a month [facility] Utilities Answer Date Recorded In the past 12 months has [employer], gas, oil, or water [employer] threatened to shut off services in your [...] in a long-term (including now)? No 08/06/2022 Housing Stability Vital [...] were you homeless or living in a long-term (including now)? No 10/25/2023 IPV Inpatient Questions [...] Mr. Zurita is an 83-year-old man from [place], [place]. His past medical history is notable forprostate cancer on Lupron, hypertension, hyperlipidemia, and mild asthma. He presented with progressive weakness and nausea and was found to be hypokalemic with abnormal LFTs. He underwent a workup at [facility] as detailed below. Resectability status for newly [...] discharged to home from hospital medicine at [facility]. Patient needs evaluation at the [facility] (PT[facility]) and presentation the GI tumor board. Shorty Obrien MD 10/29/2023 9:39 AM documented in this encounter Plan of Treatment Upcoming Encounters Date Type Department Care Team (Late st Contact Info) Description 12/17/2023 8:30 AM EDT Office Visit Hematology/Oncology at [address] [phone] Antonio Brownlee MD [facility] [place] [address] Fani Haskins, PULP TESTER [address] [place] [address] DR HEMATOLOGY AND ONCOLOGY [place], [place] [phone] 12/17/2023 9:00 AM EDT Infusion Hematology Oncology at [address] [phone] 12/17/2023 10:00 AM EDT Clinical Support Hematology/Oncology at [address] [phone] [facility] HEMATOLOGY [place] [address] 12/24/2023 10:40 AM EST Office Visit Cardiology at [address] [phone] Cory Sellers MD [facility] [place] [address] 12/30/2023 9:00 AM EST Office Visit Hematology/Oncology at [address] [phone] Antonio Brownlee MD [facility] [place] [address] Fani Haskins APRN [address] [place] [address] DR HEMATOLOGY AND ONCOLOGY [place], [place] [address] 12/30/2023 9:30 AM EST Infusion Hematology Oncology at [address] [phone] 04/04/2024 9:45 AM EST TH Visit (TeleHealth) Radiation Oncology at [address] [phone] Adrienne Singh PA [facility] DR HEMATOLOGY [place] [address] documented as of this encounter Visit Diagnoses Not on filedocumented in this encounter Care Teams Disk Grinder Relationship Specialty Start Date End Date Jez Vance MD [address] [place] [address] PCP - General 01/07/10 documented as of this encounter
--- OUTSIDE RECORDS SUMMARY | 2023-12-17 01:46 | XMS_ITS | Encounter Summary ---
Author Organization [facility] Address [facility] [place] [address] Care Team Providers Care Neuropsychology Medical Consultant Name Role Phone Jez Vance MD Primary Care Provider [phone] [phone] Encounter Details Date Type Department Care Team (Latest Contact Info) Description 11/09/2023 12:28 PM EDT - 11/09/2023 11:59 PM EDT Hospital Encounter [place] [address] Malignant neoplasm of head of pancreas; Malignant [...] Recorded In the past 12 months has [employer] electric, gas, oil, or water company threatened [...] any time in the past 12 m [facility], were you homeless or [...] Sig Dispensed Refills Start Date End Date guurlz-cdlysbcm-czndiha (Creon 24) 24,000-76,000 -120,000 unit capsuleIndications:Malign ant [...] AM EDT Office Visit Hematology/Oncology at [address] [phone] Antonio Brownlee MD [facility] [place] [address] Fani Haskins APRN [address] [place] [address] DR HEMATOLOGY [place] [address] 12/17/2023 9:00 AM EDT Infusion Hematology Oncology at [address] [phone] 12/17/2023 10:00 AM EDT Clinical Support Hematology/Oncology at [address] [phone] [facility] DR HEMATOLOGY [place] [address] 12/24/2023 10:40 AM EST Office Visit Cardiology at [address] [phone] Cory Sellers MD [facility] [place] [address] 12/30/2023 9:00 AM EST Office Visit Hematology/Oncology at [address] [phone] Antonio Brownlee MD [facility] [place] [address] Fani Haskins APRN [address] [place] [address] DR HEMATOLOGY AND ONCOLOGY [place], [place] [address] 12/30/2023 9:30 AM EST Infusion Hematology Oncology at [address] [phone] 04/04/2024 9:45 AM EST TH Visit (TeleHealth) Radiation Oncology at [address] [phone] Adrienne Singh PA [facility] DR HEMATOLOGY [place] [address] documented as of this encounter Procedures Procedure [...] Status Abnormal(A ) 11/17/2023 9:[address] [facility] Blood VENOUS BLOOD SPECIMEN / Unknown Venipuncture / Unknown 11/09/2023 12:35 PM EDT 11/09/2023 12:36 PM EDT Antonio Brownlee MD MOLECULAR ORDERABLES Performing Organization Address City/[facility]/ZIP Co de Phone Number [facility] [place] [place] [address] * (ABNORMAL) Carbohydrate Antigen 19-9 (11/09/2023 12:35 PM EDT) CA 19-9 110.0(H) <=35.0 units/mL 11/09/2023 1:35 PM EDT [facility] Comment:This result was gene rated using a Doreen Danis immunoassay. Results obtained from other methods or manufacturers cannot be used interchangeably with this method. Blood VENOUS BLOOD SPECIMEN / Unknown Venipuncture / Unknown 11/09/2023 12:35 PM EDT 11/09/2023 12:36 PM EDT Antonio Brownlee MD CHEMISTRY ORDERABLES Performing Organization Address [facility] Co de Phone Number [facility] [place] [address] * (ABNORMAL) Comprehensive metabolic panel Non-fasting (11/09/2023 12:35 PM EDT) Glucose 115 65 - 199 mg/dL 11/09/2023 1:29 PM EDT [facility] Comment:Glucose Concentratio n >=200 mg/dL plus symptoms is consistent with Diabetes Mellitus. Blood Urea Nitrogen 15 10 - 20 mg/dL 11/09/2023 1:29 PM EDT [facility] Creatinine 0.68(L) 0.80 - 1.50 mg/dL 11/09/2023 1:29 PM EDT [facility] Sodium 138 135 - 145 mMol/L 11/09/2023 1:29 PM EDT [facility] Potassium 4.0 3.5 - 5.0 mMol/L 11/09/2023 1:29 PM EDT [facility] Chloride 102 98 - 107 mMol/L 11/09/2023 1:29 PM EDT [facility] Carbon Dioxide 24 22 - 31 mMol/L 11/09/2023 1:29 PM [facility] Anion Gap 12 5 - 15 mMol/L 11/09/2023 1:29 PM [facility] Calcium 8.9 8.5 - 10.5 mg/dL 11/09/2023 1:29 PM [facility] Protein, Total 6.6 6.1 - 8.0 g/dL 11/09/2023 1:29 PM [facility] Albumin 4.2 3.2 - 5.2 g/dL 11/09/2023 1:29 PM [facility] Aspartate Aminotransferase 21 <=39 unit/L 11/09/2023 1:29 PM [facility] Alanine Aminotransferase 50 0 - 55 unit/L 11/09/2023 1:29 PM [facility] Alkaline Phosphatase 159(H) 40 - 130 unit/L 11/09/2023 1:29 PM [facility] Bilirubin, Total 0.9 <=1.3 mg/dL 11/09/2023 1:29 PM [facility] Est Glomerular Filtration Rate - Male 93 mL/min/1. 73 m?? 11/09/2023 1:29 PM [facility] Comment: This patient's estimated GFR [...] Foundation Fasting Status No 11/09/2023 1:29 PM [facility] Blood VENOUS BLOOD SPECIMEN / Unknown Venipuncture / Unknown 11/09/2023 12:35 PM EDT 11/09/2023 12:36 PM EDT Antonio Brownlee MD CHEMISTRY ORDERABLES [facility] [place] [place] [address] * (ABNORMAL) CBC (with Diff) (11/09/2023 12:35 PM EDT) White Blood Cell 7.04 4.00 - 9.50 x10(3)/mc L 11/09/2023 1:00 PM EDT [facility] Red Blood Cell 3.81(L) 4.58 - 5.54 x10(6)/mc L 11/09/2023 1:00 PM EDT [facility] Hemoglobin 12.5(L) 13.7 - 16.5 g/dL 11/09/2023 1:00 PM EDT [facility] Hematocrit 36.5(L) 40.5 - 48.5 % 11/09/2023 1:00 PM EDT [facility] Mean Cell Volume 95.8(H) 82.9 - 93.1 fL 11/09/2023 1:00 PM EDT [facility] Mean Cell Hemoglobin 32.8(H) 27.5 - 32.1 pg 11/09/2023 1:00 PM EDT [facility] Mean Cell Hemoglobin Concentration 34.2 32.0 - 35.7 g/dL 11/09/2023 1:00 PM EDT [facility] Platelet 256 145 - 357 x10(3)/mc L 11/09/2023 1:00 PM EDT [facility] Mean Platelet Volume 10.7 7.6 - 12.9 fL 11/09/2023 1:00 PM EDT [facility] RDW Standard Deviation 44.8 36.0 - 45.0 fL 11/09/2023 1:00 PM EDT [facility] RDW coefficient of variation 12.8 11.4 - 13.8 % 11/09/2023 1:00 PM [facility] NRBC% auto 0.0 % 11/09/2023 1:00 [facility] NRBC Absolute <0.01 <0.01 x10(3)/mc L 11/09/2023 1:00 PM [facility] Neutrophil % 74.7 % 11/09/2023 1:00 PM [facility] Neutrophil Absolute (ANC) - Automated 5.26 1.70 - 6.10 x10(3)/mc L 11/09/2023 1:00 PM [facility] Lymph % 14.9 % 11/09/2023 1:00 PM [facility] Lymph Absolute 1.05 0.90 - 3.20 x10(3)/mc L 11/09/2023 1:00 PM [facility] Monocyte % 7.5 % 11/09/2023 1:00 PM [facility] Monocyte Absolute 0.53 0.30 - 0.90 x10(3)/mc L 11/09/2023 1:00 PM [facility] Eos % 2.0 % 11/09/2023 1:00 PM [facility] Eos Absolute 0.14 0.00 - 0.40 x10(3)/mc L 11/09/2023 1:00 PM [facility] Basophil % 0.6 % 11/09/2023 1:00 PM [facility] Baso Absolute 0.04 0.00 - 0.10 x10(3)/mc L 11/09/2023 1:00 PM [facility] Immature Gran % 0.3 % 1:00 PM [facility] Immature Gran Absolute <0.04 0.00 - 0.04 x10(3)/mc L 11/09/2023 1:00 PM [facility] Blood VENOUS BLOOD SPECIMEN / Unknown Venipuncture / Unknown 11/09/2023 12:35 PM EDT 11/09/2023 12:36 PM EDT Antonio Brownlee MD HEMATOLOGY ORDERABLE S [facility] [place] [place] [address] documented in this encounter Visit Diagnoses Diagnosis 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
--- OUTSIDE RECORDS SUMMARY | 2023-12-17 01:46 | XMS_ITS | Encounter Summary ---
Author Organization [facility] Address [facility] [place] [address] Care Team Providers Care Tax Accountant Name Role Phone Jez Vance MD Primary Care Provider [phone] Encounter Details Date Type Department Care Team (Late st Contact Info) Description 10/28/2023 Orders [place] [address] Andrew Reynoso MD [facility] [place] [address] Social History Tobacco Use Types Packs/Day Years Used Date Smoking Tobacco: Never Smokeless Tobacco: Never Alcohol Use Standard Drinks/Week Comments Yes 1 (1 standard drink = 0.6 oz pur e alcohol) social drinker once a month [facility] Utilities Answer Date Recorded In the past 12 months has [employer], gas, oil, or water [employer] threatened to shut off services in your [...] time in the past 12 m [facility], were you homeless or living in [...] AM EDT Office Visit Hematology/Oncology at [address] [phone] Antonio Brownlee MD [facility] [place] [address] HEMATOLOGY AND ONCOLOGY [place], [place] [address] 12/17/2023 9:00 AM EDT Infusion Hematology Oncology at [address] [phone] 12/17/2023 10:00 AM EDT Clinical Support Hematology/Oncology at [address] [phone] [facility] DR [place] [address] 12/24/2023 10:40 AM EST Office Visit Cardiology at [address] [phone] Cory Sellers MD [facility] [place] [address] 12/30/2023 9:00 AM EST Office Visit Hematology/Oncology at [address] [phone] Antonio Brownlee MD [facility] [place] [address] [address] HEMATOLOGY AND ONCOLOGY [place], [place] [phone] 12/30/2023 9:30 AM EST Infusion Hematology Oncology at [address] [phone] 04/04/2024 9:45 AM EST TH Visit (TeleHealth) Radiation Oncology at [address] [phone] Adrienne Singh PA [facility] HEMATOLOGY [place] [address] documented as of this encounter Visit Diagnoses Not on filedocumented in this encounter Care Teams Tax Accountant Relationship Specialty Start Date End Date Jez Vance MD [address] [place] [address] PCP - General 01/07/10 documented as of this encounter
--- OUTSIDE RECORDS SUMMARY | 2023-12-17 01:46 | XMS_ITS | Encounter Summary ---
Author Organization [facility] Address [facility] [place] [address] Care Team Providers Care Registered Nurse Surgical Services Name Role Phone Jez Vance MD Primary Care Provider [phone] Encounter Details Date Type Department Care Team [...] from your doctor or pharmacy? Never 11/04/2023 [facility] Utilities Answer Date Recorded In the [...] any time in the past 12 m [facility], were you homeless or [...] AM EDT Office Visit Hematology/Oncology at [address] [phone] Antonio Brownlee MD [facility] [place] [address] Fani Haskins APRN [address] [place] [address] DR HEMATOLOGY AND ONCOLOGY [place], [place] [phone] 12/17/2023 9:00 AM EDT Infusion Hematology Oncology at [address] [phone] 12/17/2023 10:00 AM EDT Clinical Support Hematology/Oncology at [address] [phone] [facility] DR [place] [address] 12/24/2023 10:40 AM EST Office Visit Cardiology at [address] [phone] Cory Sellers MD [facility] [place] [address] 12/30/2023 9:00 AM EST Office Visit Hematology/Oncology at [address] [phone] Antonio Brownlee MD [facility] [place] [address] Fani Haskins [address] HEMATOLOGY AND ONCOLOGY [place], [place] [phone] 12/30/2023 9:30 AM EST Infusion Hematology Oncology at [address] [phone] 04/04/2024 9:45 AM EST TH Visit (TeleHealth) Radiation Oncology at [address] [phone] Adrienne Singh PA [facility] [place] [address] documented as of this encounter Visit Diagnoses Not on filedocumented in this encounter Care Teams Registered Nurse Surgical Services Relationship Specialty Start Date End Date Jez Vance MD [address] [place] [address] PCP - General 01/07/10 documented as of this encounter
--- OUTSIDE RECORDS SUMMARY | 2023-12-17 01:46 | XMS_ITS | Encounter Summary ---
Author Organization [facility] Address [facility] [place] [address] Care Team Providers Care Mandolin Repairer Name Role Phone Jez Vance MD Primary Care Provider [phone] Encounter Details Date Type Department Care Team (Latest Contact Info) Description 10/30/2023 Travel Social History Tobacco Use Types Packs/Day Years Used Date Smoking Tobacco: Never Smokeless Tobacco: Never Alcohol Use Standard Drinks/Week Comments Yes 1 (1 standard drink = 0.6 oz pur e alcohol) social drinker once a month [facility] Utilities [...] living in a mcfp (including now)? No 10/25/2023 DH IPV Inpatient [...] AM EDT Office Visit Hematology/Oncology at [address] [phone] Antonio Brownlee MD [facility] [place] [address] Fani Haskins APRN [address] [place] [address] DR HEMATOLOGY AND ONCOLOGY [place], [place] [phone] 12/17/2023 9:00 AM EDT Infusion Hematology Oncology at [address] [phone] 12/17/2023 10:00 AM EDT Clinical Support Hematology/Oncology at [address] [phone] [facility] DR HEMATOLOGY [place] [address] 12/24/2023 10:40 AM EST Office Visit Cardiology at [address] [phone] Cory Sellers MD [facility] [place] [address] 12/30/2023 9:00 AM EST Office Visit Hematology/Oncology at [address] [phone] Antonio Brownlee MD [facility] [place] [address] [address] HEMATOLOGY AND ONCOLOGY [place], [place] [phone] 12/30/2023 9:30 AM EST Infusion Hematology Oncology at [address] [phone] 04/04/2024 9:45 AM EST TH Visit (TeleHealth) Radiation Oncology at [address] [phone] Adrienne Singh PA [facility] DR HEMATOLOGY [place] [address] documented as of this encounter Visit Diagnoses Not on filedocumented in this encounter Care Teams Mandolin Repairer Relationship Specialty Start Date End Date Jez Vance MD [address] [place] [address] PCP - General 01/07/10 documented as of this encounter
--- OUTSIDE RECORDS SUMMARY | 2023-12-17 01:46 | XMS_ITS | Encounter Summary ---
Author Organization [facility] [place] [address] Care Team Providers Care Appellate Court Judge Name Role Phone Jez Vance MD Primary Care Provider [phone] Encounter Details Date Type Department Care Team (Late st Contact Info) Description 11/12/2023 9:38 AM EDT Anesthesia Event [facility] [address] Lore Maxwell MD [facility] [place] [address] Anjum Saul CRNA [facility] [place] [address] Anesthesia Record Procedure Summary Procedure Name Responsible [...] Time: 1105 11/12/23 0943 by Anjum Saul CRNA 11/12/23 1105 by Anjum Saul CRNA documented [...] doctor or pharmacy? Never 11/04/2023 [facility] Utilities Answer Date Recorded In [...] any time in the past 12 m [facility], were you homeless or living in [...] Procedure Summary Date: 11/12/23 Room / Location: [facility] OR [address] [place] [address] OSC Anesthesia Start: 937 Anesthesia Stop: 1105 Procedures: LAPAROSCOPY, DIAGNOSTIC, ABDOMEN (WRVU 5.14) (Abdomen) YUNG\NGUYEN.CATHETER,TUNNELED, WITH SQ PORT OR PUMP OVER 5YR (WRVU 5.79) (Chest) FLUOROSCOPY (WRVU 0.3) Diagnosis: (PANCREAS CANCER) Surgeons: Carmen Obrien MD Responsible Provider: Lore Maxwell MD Anesthesia Type: general ASA Status: 3 All Anesthesia Providers: Anesthesiologist: Lore Maxwell MD DIRECTOR POST: Anjum Saul CRNA Vitals Value Taken Time BP 156/64 11/12/23 1115 Temp 36.2 ??C (97.2 ??F) 11/12/23 1106 Pulse 58 11/12/23 1119 Resp 16 11/12/23 1106 SpO2 100 % 11/12/23 1119 Pain Level 0 11/12/23 1106 Vitals shown include unfiled device data. Patient Location: PACU/[facility] Level of Consciousness: Awake and Alert Pain [...] looks like bigeminy pattern. P waves present. MO interval not prolonged. Patient sleeping comfortably, asymptomatic. [...] 3.47) performed by Andrew Reynoso MD at [facility] ENDOSCOPY ??? PRO ERCP BALLOON DILATATION BILIARY/PANCREATIC DUCT OR AMPULLA EA DUCT 10/25/2023 ERCP, W BALLOON DILATION OF BILIARY/PANCREATIC DUCT (WRVU 6.9) performed by Andrew Reynoso MD at [facility] ENDOSCOPY ??? PRO ERCP STENT PLACEMENT BILIARY OR PANCREATIC DUCT 10/25/2023 ERCP, W PLCMNT ENDOSCOPIC STENT BILIARY OR PANCREATIC DUCT (WRVU 8.48) performed by Andrew Reynoso MD at [facility] ENDOSCOPY ??? PRO ERCP, SPHINCTEROTOMY 10/25/2023 ERCP W/SPHINCTEROTOMY/PAPILLOTOMY (WRVU 6.5) performed by Andrew Reynoso MD at [facility] ENDOSCOPY ??? PRO ERCP,DIAGNOSTIC N/A 10/25/2023 ERCP (WRVU 5.85) performed by Andrew Reynoso MD at [facility] ENDOSCOPY ??? PRO UPGI ENDOSCOPY W/US FN BX 10/25/2023 EGD, W US GUIDED FINE NEEDLE ASPIRATION/BIOPSY (WRVU 4.16) performed by Andrew Reynoso MD at [facility] ENDOSCOPY ??? PROSTATE BIOPSY ??? ROTATOR CUFF [...] risks discussed with patient. Plan discussed with DIRECTOR POST. Anesthesia Screening documented in this encounter Plan of Treatment Upcoming Encounters Date Type Department Care Team (Late st Contact Info) Description 12/17/2023 8:30 AM EDT Office Visit Hematology/Oncology at [address] [phone] Antonio Brownlee MD [facility] [place] [address] Fani Haskins, [address] HEMATOLOGY AND ONCOLOGY [place], [place] [address] 12/17/2023 9:00 AM EDT Infusion Hematology Oncology at [address] [phone] 12/17/2023 10:00 AM EDT Clinical Support Hematology/Oncology at [address] [phone] [facility] DR [place]AT[place] [address] 12/24/2023 10:40 AM EST Office Visit Cardiology at [address] [phone] Cory Sellers MD [facility] [place] [address] 12/30/2023 9:00 AM EST Office Visit Hematology/Oncology at [address] [phone] Antonio Brownlee MD [facility] [place] [address] Fani Haskins, [address] HEMATOLOGY AND ONCOLOGY [place], [place] [phone] 12/30/2023 9:30 AM EST Infusion Hematology Oncology at [address] [phone] 04/04/2024 9:45 AM EST TH Visit (TeleHealth) Radiation Oncology at [address] [phone] Adrienne Singh PA [facility] DR HEMATOLOGY [place] [address] documented as of this encounter Visit Diagnoses [...] mg documented in this encounter Care Teams Appellate Court Judge Relationship Specialty Start Date End Date Jez Vance MD [address] [place] [address] PCP - General 01/07/10 documented as of this encounter
--- OUTSIDE RECORDS SUMMARY | 2023-12-17 01:46 | XMS_ITS | Encounter Summary ---
Author Organization [facility] Address [facility] [place] [address] Care Team Providers Care Escort Patients Name Role Phone Jez Vance MD Primary Care Provider [phone] Encounter Details Date Type Department Care Team (Late st Contact Info) Description 11/12/2023 7:40 AM EDT - 11/12/2023 12:00 PM EDT Hospital Encounter [place] [phone] Carmen Obrien MD [facility] [place] [address] Cardiac arrhythmia, unspecified cardiac arrhythmia type Discharge [...] from your doctor or pharmacy? Never 11/04/2023 [facility] Utilities Answer Date Recorded In [...] [facility] were you [facility] or living in [...] Discharge Instructions * Discharge Instructions* Tiera Biggs, CARISSA - 11/12/2023 8:17 AM EDT General Anesthesia [...] closest emergency room or call the hospital dye line operator at [phone] and ask for physician freedom of information officer covering for your physician. Questions or problems after 5pm or on a weekend: Call the [facility] dye line operator at and ask for the physician freedom of information officer covering for your doctor. * Patient Instructions* [...] please call the surgery clinic nurses at [phone]. If you have any concerns at night or when the clinic is closed then please call the main [facility] number and ask to speak with the general surgery resident freedom of information officer. That number is [phone]. Dr. Obrien will see you back after you finish the neoadjuvant therapy. documented in this encounter Medications at Time of Discharge Medication Sig Dispensed Refills Start Date End Date yomvhh-myzywtro-pnckzbs () 24,000-76,000 -120,000 unit capsuleIndications:Malign ant neoplasm [...] in the preoperative holding area at the [facility]. He is here today with his -Scar. We discussed a plan to proceed with a laparoscopy to complete the staging workup and the Mediport placement to facilitate systemic chemotherapy with Dr. Brownlee. Informed consent was obtained. Shorty Obrien MD 11/12/2023 9:51 AM documented in this encounter Miscellaneous Notes * Op Note - Carmen Obrien MD - 11/12/2023 10:13 AM EDT [facility] Operative Note Patient Name: Benny Zurita : [id number] MR#: [id number] Case Date: 11/12/2023 Surgeon: Surgeons and Role: [...] 8:30 AM EDT Office Visit Hematology/Oncology at [address] [phone] Antonio Brownlee MD [facility] [place] [address] Fani Haskins APRN [address] [place] [address] DR HEMATOLOGY AND ONCOLOGY [place], [place] [id number] 12/17/2023 9:00 AM EDT Infusion Hematology Oncology at [address] [phone] 12/17/2023 10:00 AM EDT Clinical Support Hematology/Oncology at [address] [phone] [facility] [place] [address] 12/24/2023 10:40 AM EST Office Visit Cardiology at [address] [phone] Cory Sellers MD [facility] [place] [address] 12/30/2023 9:00 AM EST Office Visit Hematology/Oncology at [address] [phone] Antonio Brownlee MD [facility] [place] [address] Fani Haskins APRN [address] [place] [address] DR HEMATOLOGY AND ONCOLOGY [place], [place] [id number] 12/30/2023 9:30 AM EST Infusion Hematology Oncology at [address] [phone] 04/04/2024 9:45 AM EST TH Visit (TeleHealth) Radiation Oncology at [address] [phone] Adirenne Singh PA [facility] [place] [address] documented as of this encounter Procedures Procedure Name Priority Date/Time Associated Diagnosis Comments XR CHEST ONE VIEW Routine 11/12/2023 11: 33 AM EDT EKG 12-LEAD STAT 11/12/2023 11:23 AM EDT Cardiac arrhythmia, unspecified cardiac arrhythmia type XR FLUORO NO RAD <1HR - OR USE Routine 11/12/2023 10:35 AM EDT Fluoroscopy Exam Up To 1 Hr Phy Or Oth Hlth Care Prov ([address]) Yes 11/12/2023 9:38 AM EDT [facility] Insert Tunneled CV Cath w SubQ Port, Age 5 Yrs or Older ([address]) Yes 11/12/2023 9:38 AM EDT [facility] Lap, Diagnostic Abdomen ([address]) Yes 11/12/2023 9:38 AM EDT [facility] documented in this encounter Results * XR Chest One View (11/12/2023 11:33 AM EDT) WORKSTATION ID [id number] RAD Anatomical Region Laterality Modality Chest N/A [...] have questions please contact the health child day care center worker that requested your imaging first. ? [...] who have questions please contactthe health child day care center worker that requested your imaging first. Electronically signed by: Elton Marshall MD, [facility]([phone]), at 11/12/2023 3:22 PM Carmen Obrien MD IMG DX ORDERABLES * EKG 12 Lead (11/12/2023 11:23 AM EDT) Ventricular rate 55 BPM MUSE SYSTEM Atrial Rate 55 BPM MUSE SYSTEM P-R Interval 150 ms MUSE SYSTEM QRS Duration 108 ms MUSE SYSTEM Q-T Interval 496 ms MUSE SYSTEM QTC Calculated (Bezet) 474 ms MUSE SYSTEM Calculated P [place] 49 degrees MUSE SYSTEM Calculated R [place] -55 degrees MUSE SYSTEM Calculated T [place] 8 degrees MUSE SYSTEM INTERPRETATION Sinus bradycardia [...] (New Bag - Prov ider: Anjum Saul, BRAKE ENGINEER) PRN Medication Order 11/10/2023 11/11/2023 11/12/2023 BUPivacaine [...] Comment: 1000 units mixed with 100ml of [id number] units mixed with 10ml of ns) documented in this encounter Care Teams Escort Patients Relationship Specialty Start Date End Date Jez Vance MD [address] [place] [address] PCP - General 01/07/10 documented as of this encounter
--- OUTSIDE RECORDS SUMMARY | 2023-12-17 01:46 | XMS_ITS | Encounter Summary ---
Author Organization [facility] Address [facility] [place] [address] Care Team Providers Care Racquet Maker Name Role Phone Jez Vance MD Primary Care Provider [phone] Encounter Details Date Type Department Care Team (Late st Contact Info) Description 11/09/2023 Telephone Hematology/Oncology at [address] [phone] Kelly Buchanan Social History Tobacco [...] from your doctor or pharmacy? Never 11/04/2023 [facility] Utilities Answer Date Recorded In the past 12 months has e [employer], gas, oil, or water [employer] threatened to shut off services in your [...] in a retirement (including now)? No 11/04/2023 [facility] IP[facility] Inpatient [...] his labs done 1-2 days prior at [facility]. Benny also confirmed that he knows the location for this appointment in [facility]. documented in this encounter Plan of Treatment Upcoming Encounters Date Type Department Care Team (Late st Contact Info) Description 12/17/2023 8:30 AM EDT Office Visit Hematology/Oncology at [address] [phone] Antonio Brownlee MD [facility] [place] [address] [address] HEMATOLOGY AND ONCOLOGY [place], [place] [phone] 12/17/2023 9:00 AM EDT Infusion Hematology Oncology at [address] [phone] 12/17/2023 10:00 AM EDT Clinical Support Hematology/Oncology at [address] [phone] [facility] DR HEMATOLOGY [place] [address] 12/24/2023 10:40 AM EST Office Visit Cardiology at [address] [phone] Cory Sellers MD [facility] [place] [address] 12/30/2023 9:00 AM EST Office Visit Hematology/Oncology at [address] [phone] Antonio Brownlee MD [facility] [address] [address] HEMATOLOGY AND ONCOLOGY [place], [place] [phone] 12/30/2023 9:30 AM EST Infusion Hematology Oncology at [address] [phone] 04/04/2024 9:45 AM EST TH Visit (TeleHealth) Radiation Oncology at [address] [phone] Adrienne Singh PA [facility] DR HEMATOLOGY [place] [address] documented as of this encounter Visit Diagnoses Not on filedocumented in this encounter Care Teams Racquet Maker Relationship Specialty Start Date End Date Jez Vance MD [address] [place] [address] PCP - General 01/07/10 documented as of this encounter
--- OUTSIDE RECORDS SUMMARY | 2023-12-17 01:46 | XMS_ITS | Encounter Summary ---
Author Organization [facility] Address [facility] [place] [address] Care Team Providers Care Branch Library Clerk Name Role Phone Jez Vance MD Primary Care Provider [phone] Reason for Referral * Surgical (Routine) - Closed Specialty Diagnoses / Procedures Referred By Contac t Referred To Contact General Surgery Diagnoses Malignant neoplasm of prostate Ros Gonzá[place] [address] [facility] [address] [place] [phone] Referral ID Status Reason Start Date Expiration Date V isits Requested Visits Authorized [id number] Closed Consult, Test & Treat 10/28/2023 10/27/2024 1 1 * Consultation (Routine) - Closed Specialty Diagnoses / Procedures Referred By Contac t Referred To Contact Gastroenterology Diagnoses Pancreatic mass Ros Gonzá[place] [address] [facility] [address] [place] [phone] Referral ID Status Reason Start Date Expiration Date V isits Requested Visits Authorized [id number] Closed Specialty Service Requested 10/27/2023 10/26/2024 1 1 * Consultation (Routine) - Closed Specialty Diagnoses / Procedures Referred By Deena yao Referred To Contact Gastroenterology Diagnoses Pancreatic mass Painless jaundice Malignant neoplasm of prostate [place] [address] [facility] [address] [place] [address] Referral ID Status Reason Start Date Expiration Date V isits Requested Visits Authorized [id number] Closed Consult, Test & Treat 10/26/2023 10/25/2024 1 1 * Consultation (Routine) - Closed Specialty Diagnoses / Procedures Referred By Deena yao Referred To Contact Hematology and Oncology Diagnoses Pancreatic mass Painless jaundice Malignant neoplasm of prostate [place] [address] [facility] [address] [place] [address] Referral ID Status Reason Start Date Expiration Date V isits Requested Visits Authorized [id number] Closed Consult, Test & Treat 10/26/2023 10/25/2024 1 1 Reason for Visit * Reason Comments Jaundice * Auth/Cert (Routine) Specialty Diagnoses / Procedures Referred By Deena yao Referred To Contact Diagnoses Cholestatic liver disease [place] [address] [facility] Referral ID Status Reason Start Date Expiration Date Visits Re quested Visits Authorized [id number] 1 1 Encounter Details Date Type Department Care Team (Latest Contact Info) Description 10/23/2023 12:17 PM EDT - 10/27/2023 3:16 PM EDT Hospital Encounter Hematology/Oncology Unit Level 1 [place] [address] Leia Henley MD [facility] [place] [address] Anjum Biggs MD [facility] [place] [address] [place] [address] [place] [address] Jaundice; Pancreatic mass; Hypokalemia; Painless jaundice; Malignant neoplasm of prostate Discharge Disposition: Home Social History Tobacco Use Types Packs/Day Years Used Date Smoking Tobacco: Never Smokeless Tobacco: Never Alcohol Use Standard Drinks/Week Comments Yes 1 (1 standard drink = 0.6 oz pur e alcohol) social drinker once a month [facility] Utilities Answer Date Recorded In the past 12 months has [employer], gas, oil, or water [employer] threatened to shut off services in your [...] a senior living (including now)? No 10/25/2023 DH IPV Inpatient [...] so he presented to the ED at [facility]. In the ED, found to have hypokalemia (2.9), mild normocytic anemia (13.1), normal renal function, markedly elevated bilirubin (8.6), elevated LFT's (AST 258 / ALT 577). GI consulted by the ED and medicine paged for admission. Patient lives with his , split between [place] and [place]. 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 Rare EtOH. Nonsmoker. No [...] oncology team had reached out to the [facility] ([facility]) New Patient schedulers to keep an eye [...] 34.1* PLATELET 196 210 193 Recent Labs 10/27/2333410/26/2339910/25/23 0353 10/24/23 0411 10/23/23 1627 NA 131* [...] in this interval not displayed. Recent Labs 10/27/2333410/26/2339910/25/23 0353 BILITOT 2.8* 3.6* 8.5* AST 73* [...] 10/23/2023 1:10 PM) Result Value WORKSTATION ID [id number] Impression 1. Hypodense pancreatic head mass concerning [...] services officer that requested your imaging first. Electronically signed by: Davy Sinclair MD, [facility] ([phone]), at 10/23/2023 1:[address] Chest w Contrast (Exam End: 10/24/2023 1:41 PM) Result Value WORKSTATION ID [id number] Impression No metastatic disease in the chest. Thank you for letting us participate in the care of this patient. If you are a health care provider and have any questions regarding this report, please contact the number below. For patients who have questions please contact the health career services officer that requested your imaging first. Electronically signed by: Mariam Johnson MD, [facility] ([phone]), at 10/24/2023 5:21 PM Discharge Conditions/Prognosis: Stable; [...] oncology team had reached out to the [facility] ([facility]) New Patient schedulers to keep an eye [...] AM Adrienne Singh PA [facility] 11/30/2023 9:45 AM Adrienne Singh PA [facility] 11/30/2023 10:30 AM [facility] INFUSION, ROOM [facility] Your Inpatient Doctor: Ros Gonzáles MD Your Primary Care Provider: Jez Vance MD [phone] For questions regarding this document or issues relating to this hospitalization on the Medical Service, please contact your inpatient physician through the [facility] Script Worker . Issues afterhours and on weekends will [...] the day after the procedure, use an eaur-iue-uxekmhn spray to numb your throat. Sucking on [...] occurs, please contact your Doctor. Please call [phone] before 8pm Mon-Fri with problems, questions or concerns. If you call after 8pm or on weekends, call the Hospital at [phone] and ask to speak to the Supplier Manager numerical control machine operator and the tiger machine operator will contact that person for you. When should you call for help? Call [phone] anytime you think you may need emergency [...] problems, like Where can you learn more? [facility] View your After Visit Summary and more online at [email or web address] If you would like to provide feedback about your hospital experience, please call the Office of Patient and Family Relations at . If you have received this After Visit Summary in error, please immediately return it in person to the department, or notify the [facility] Privacy Office by calling toll free at between the hours of 8AM and 5PM to arrange for our retrieval of the documents at no cost to you. Content Version: 12.2 ?? 1438-6906 [employer]. Care instructions adapted under license by [facility]. If you have questions about a medical condition or this instruction, always ask your healthcare professional. [employer] disclaims any warranty or liability for your [...] the day after the procedure, use an spsn-zaz-rdarmjt spray to numb your throat. Sucking on [...] occurs, please contact your Doctor. Please call [phone] before 8pm Mon-Fri with problems, questions or concerns. If you call after 8pm or on weekends, call the Hospital at [phone] and ask to speak to the Supplier Manager numerical control machine operator and the tiger machine operator will contact that person for you. When should you call for help? Call [phone] anytime you think you may need emergency [...] any problems. Where can you learn more? [facility] View your After Visit Summary and more online at [email or web address] If you would like to provide feedback about your hospital experience, please call the Office of Patient and Family Relations at . If you have received this After Visit Summary in error, please immediately return it in person to the department, or notify the [facility] Privacy Office by calling toll free at between the hours of 8AM and 5PM to arrange for our retrieval of the documents at no cost to you. Content Version: 12.2 ?? 8664-3470 [employer]. Care instructions adapted under license by [facility]. If you have questions about a medical condition or this instruction, always ask your healthcare professional. [employer] disclaims any warranty or liability for your [...] the day after the procedure, use an lkji-rka-ktzawhf spray to numb your throat. Sucking on [...] occurs, please contact your Doctor. Please call [phone] before 8pm Mon-Fri with problems, questions or concerns. If you call after 8pm or on weekends, call the Hospital at [phone] and ask to speak to the Supplier Manager numerical control machine operator and the tiger machine operator will contact that person for you. When should you call for help? Call [phone] anytime you think you may need emergency [...] any problems. Where can you learn more? [facility] View your After Visit Summary and more online at [email or web address] If you would like to provide feedback about your hospital experience, please call the Office of Patient and Family Relations at . If you have received this After Visit Summary in error, please immediately return it in person to the department, or notify the [facility] Privacy Office by calling toll free at between the hours of 8AM and 5PM to arrange for our retrieval of the documents at no cost to you. Content Version: 12.2 ?? 1658-5099 [employer]. Care instructions adapted under license by [facility]. If you have questions about a medical condition or this instruction, always ask your healthcare professional. [employer] disclaims any warranty or liability for your use of this information. Future Appointments and Orders Future Appointments and Orders Future Appointments Provider Department Dept Phone 11/02/2023 10:30 AM Adrienne Singh PA Radiation Oncology at [facility] Arrive at: Home [phone] 11/30/2023 9:45 AM Adrienne Singh PA Radiation Oncology at [facility] Arrive at: Home [phone] 11/30/2023 10:30 AM [facility] INFUSION, ROOM Hematology Oncology at [facility] Arrive at: [facility] door at end of hallway [phone] Future Orders Complete By Expires Referral to Gastroenterology [REF25 Custom] As directed Process Instructions: If requesting a colonoscopy please use [id number] AMB REFERRAL TO COLONOSCOPY PROCEDURE. This referral request is for evaluation and treatment of gastrointestinal health concerns. Scheduling Instructions: Questions: My question or request is: Status post ERCP and EUS for pancreatic cancer Referral to Gastroenterology [REF25 Custom] As directed Process Instructions: If requesting a colonoscopy please use RRB242 AMB REFERRAL TO COLONOSCOPY PROCEDURE. This referral [...] Vance MD [address] [facility] [address] Discharge References/Attachments: Discharge References/Attachments None documented in [...] the day after the procedure, use an nslq-mny-qszznrr spray to numb your throat. Sucking on [...] occurs, please contact your Doctor. Please call [phone] before 8pm Mon-Fri with problems, questions or concerns. If you call after 8pm or on weekends, call the Hospital at [phone] and ask to speak to the Supplier Manager numerical control machine operator and the tiger machine operator will contact that person for you. When should you call for help? Call [phone] anytime you think you may need emergency [...] problems, like Where can you learn more? [facility] View your After Visit Summary and more online at [email or web address] If you would like to provide feedback [...] cost to you. Content Version: 12.2 ?? 7688-7063 [employer]. Care instructions adapted under license by [facility]. If you have questions about a medical condition or this instruction, always ask your healthcare professional. [employer] disclaims any warranty or liability for your [...] the day after the procedure, use an njhx-bud-tdqieyp spray to numb your throat. Sucking on [...] occurs, please contact your Doctor. Please call [phone] before 8pm Mon-Fri with problems, questions or concerns. If you call after 8pm or on weekends, call the Hospital at [phone] and ask to speak to the Supplier Manager numerical control machine operator and the tiger machine operator will contact that person for you. When should you call for help? Call [phone] anytime you think you may need emergency [...] any problems. Where can you learn more? [facility] View your After Visit Summary and more online at [email or web address] If you would like to provide feedback about your hospital experience, please call the Office of Patient and Family Relations at . If you have received this After Visit Summary in error, please immediately return it in person to the department, or notify the [facility] Privacy Office by calling toll free at between the hours of 8AM and 5PM to arrange for our retrieval of the documents at no cost to you. Content Version: 12.2 ?? 3091-2389 [employer]. Care instructions adapted under license by [facility]. If you have questions about a medical condition or this instruction, always ask your healthcare professional. [employer] disclaims any warranty or liability for your [...] the day after the procedure, use an texu-meh-ecpcica spray to numb your throat. Sucking on [...] occurs, please contact your Doctor. Please call [phone] before 8pm Mon-Fri with problems, questions or concerns. If you call after 8pm or on weekends, call the Hospital at [phone] and ask to speak to the Supplier Manager numerical control machine operator and the tiger machine operator will contact that person for [...] any problems. Where can you learn more? [facility] View your After Visit Summary and more online at [email or web address] If you would like to provide feedback about your hospital experience, please call the Office of Patient and Family Relations at . If you have received this After Visit Summary in error, please immediately return it in person to the department, or notify the [facility] Privacy Office by calling toll free at between the hours of 8AM and 5PM to arrange for our retrieval of the documents at no cost to you. Content Version: 12.2 ?? 7953-4636 [employer]. Care instructions adapted under license by [facility]. If you have questions about a medical condition or this instruction, always ask your healthcare professional. [employer] disclaims any warranty or liability for your [...] oncology team had reached out to the [facility] ([facility]) New Patient schedulers to keep an eye [...] AM Adrienne Singh PA [facility] 11/30/2023 9:45 AM Adrienne Singh PA [facility] 11/30/2023 10:30 AM [facility] INFUSION, ROOM [facility] Your Inpatient Doctor: Ros Gonzáles MD Your Primary Care Provider: Jez Vance MD [phone] For questions regarding this document or issues relating to this hospitalization on the Medical Service, please contact your inpatient physician through the [facility] Script Worker . Issues afterhours and on weekends will [...] out of the unit by a unit PUMP HOUSE ENGINEER. Pt is discharged to his home and [...] spent >30 minutes (Day of Discharge Code 40309) involved in the final examination of the [...] General Information Benny Zurita 1940 Medicare Number: [id number] Transport Date: 10/26/2023 (PCS is valid for round trips on this date and for all repetitive trips in the 60-day range as noted below.) Origin: [address] Destination: [facility] Is the patient's stay covered [...] van (i.e. seated during transport, without medical radiation therapist or monitoring?): No 4) In addition to [...] the Centers of Medicare and Medicaid Services ([facility]) to support the determination of medical necessity [...] QRS widening ( R in aVL , [place] product ) Possible Lateral infarct , [...] minimumof two midnights or is on the [facility] inpatient only procedure list (status C) due to: severe hypokalemia and pancreatic mass requiring EUS/ERCP Team Pager(MD Coverage 07/09): #[phone] PCP: Jez Vance MD [phone] Ros Gonzáles MD 10/26/2023 * Vanesa Vance [...] in eDH CBC: Recent Labs 10/25/23 0353 10/24/23 04110/23/23 1232 WBC 4.52 5.21 4.60 HGB 12.2* [...] services officer that requested your imaging first. Electronically signed by: Mariam Johnson MD, [facility] ([phone]), at 10/24/2023 5:[address] Abdomen & [...] services officer that requested your imaging first. Electronically signed by: Davy Sinclair MD, [facility] ([phone]), at 10/23/2023 1:26 PM ENDOSCOPY: Reports and [...] Gonzáles MD - 10/25/2023 6:33 PM EDT Hospital Medicine Attending Daily Progress [...] Leo MD (1957) on 10/24/2023 2:23:18 PM QTCCALC 457 IMAGING: [...] minimumof two midnights or is on the [facility] inpatient only procedure list (status C) due to: severe hypokalemia and pancreatic mass requiring EUS/ERCP Team Pager( Coverage 07/09): #[phone] PCP: Jez Vance MD [phone] Ros Gonzáles MD 10/25/2023 * Alethea Barnes [...] encounter: 84.8 kg (186 lb 15.2 oz). [place] Body Weight (IBW) (kg): 74.09 Usual Body [...] pt reported 14-23# loss and poor po [employer]. Trip Rider met with Benny at bedside (pt's on phone during visit). Benny says that he has had a smaller appetiteand is eating ~50% of his normal sized meals (unable to provide daily intake). He still eats 3 meals per day and some snacks. Trip Rider encouraged 5-6 small meals per day to [...] maxillary line): None present Lean Muscle Loss [place] region (temporalis muscle): None present Clavicle bone region (pectoralis major): Mild Dorsal hand (interosseous muscle): None present Shoulder (deltoid): None present Scapular bone region (latissimus dorsi, trapezius muscles): Not assessed Thigh region (quadriceps muscle): None present Posterior calf region (gastrocnemius muscle): None present Malnutrition Diagnosis: Not identified (White et al, JPEN J Parenteral Enteral Nutr. 2011; 36(3): 273-83) Nutrition to continue to follow up while inpatient ThanksDebbie, MS, RDN, LD Clinical Nutrition * Vanesa Vnace RN - 10/25/2023 5:47 AM EDT Patient [...] between patient care. Action List NPO @ AL EUS w/Bx tomorrow by GI? Monitor electrolytes [...] minimumof two midnights or is on the [facility] inpatient only procedure list (status C) due to: severe hypokalemia Team Pager(MD Coverage 07/09): #[phone] PCP: Jez Vance MD [phone] Rj Rizvi MD 10/24/2023 * Vanesa Vance [...] and included in the patient's chart. Felicity Toddnida PGY-6, Gastroenterology * Rj Rizvi MD - 10/23/2023 5:47 PM EDT Inpatient Hospital Medicine - Admission Note CC/ID: 83 y.o. Male presents to [facility] with fatigue and nausea [...] so he presented to the ED at [facility]. In the ED, found [...] Immunizations given as needed. Rj Rizvi MD [facility] Medicine Pager [phone] documented in this encounter ED Notes * [...] back to room independently and reconnected to [facility]. Denies any further needs or concerns [...] 0 - 60 unit/L Type and screen ([facility]/Romeo/FREDY) Result Value Ref Range ABORH Type O POSITIVE PATIENT HISTORY Not Found Expires at 2359 on: 10-26-2023 ANTIBODY SCREEN AUTOMATED Negative T&S only valid at [facility] LAB CBC (with Diff) [...] services officer that requested your imaging first. Electronically signed by: Davy Sinclair MD, [facility] ([phone]), at 10/23/2023 1:26 PM Procedures Assessment and [...] ED team. Hudson Walker MD Resident 10/23/23 5297 Hudson Walker MD Resident 10/23/237 Associated attestation [...] Type: *No Product type* / Secondary Insurance: [email or web address] [place] Prescription Coverage: Yes This plan was formulated [...] in a 2 story house with 3 CAIR[place],. Current Functional Ability: Independent DME used at home: cane - straight, walker - standard DME Needed at Discharge: No Patient is insured through: Primary Insurance: MEDICARE Payor: MEDICARE / Plan: MEDICARE PART A & B / Product Type: *No Product type* / Secondary Insurance: [facility] Plan for discharge is: Home w/o [...] Care Flowsheets (Taken 10/25/2023 0825 by Kelly Nicholson, RN) Trust Relationship/Rapport: care explained choices provided [...] ( spouse) would be surrogatedecision maker per [place] surrogate decision making law. (Only good for 180 days) Any patient receiving care in [place] must abide by [place] law. The hierarchy for surrogate decision making [...] (i) The agent with financial power of chief deputy coroner or a conservator appointed in accordance with [...] or living in a senior living (including now)?: No In the past 12 months has the [employer], gas, oil, or water [employer] threatened to shut off services in your [...] standard Home Address confirmed as: [address] [facility] [address] Social & Family Supports: All names listed below confirmed with patient as current and correct Extended Emergency Contact Information Primary Emergency Contact: Angela Zurita Address: [address] [place] [address] [facility] [place] Relation: Spouse Secondary Emergency Contact: Tiera Washington Address: [address] [place] [address] [facility] Relation: Child Current Care Provided [...] Product type* / Secondary Insurance: [facility] ONLY if patient has Medicare A&B - Does this patient have secondary insurance?: Yes ; Prescription Coverage: Yes Preferred Pharmacy: [facility] [address] [place] [phone] [place] Status: Patient is a : No Primary Care Provider confirmed: Jez H Genereaux, MD [phone] Patient/Caregiver Goals of Treatment: return to home [...] CM * Plan of Care - Vanesa Vanec RN - 10/24/2023 9:47 PM EDT Patient [...] Intervention: Provide Person-Centered Care Flowsheets (Taken 10/24/2023 9332) Trust Relationship/Rapport: care explained choices provided Problem: [...] Stein RPH - 10/23/2023 9:26 PM EDT [facility] Medication List Update for Medication Reconciliation [...] services officer that requested your imaging first. Electronically signed by: Davy Sinclair MD, [facility] ([phone]), at 10/23/2023 1:26 PM ENDOSCOPY: Reports and [...] AM EDT Office Visit Hematology/Oncology at [address] [phone] Antonio Brownlee MD [facility] [place] [address] Fani Haskins APRN [address] [place] [address] [place] [address] 12/17/2023 9:00 AM EDT Infusion Hematology Oncology at [address] [phone] 12/17/2023 10:00 AM EDT Clinical Support Hematology/Oncology at [address] [phone] [facility] [place] [address] 12/24/2023 10:40 AM EST Office Visit Cardiology at [address] [phone] Cory Sellers MD [facility] [place] [address] 12/30/2023 9:00 AM EST Office Visit Hematology/Oncology at [address] [phone] Antonio Brownlee MD [facility] [place] [place] [address] Fani Haskins APRN [address] [place] [address] DR HEMATOLOGY AND ONCOLOGY [place], [place] [id number] 12/30/2023 9:30 AM EST Infusion Hematology Oncology at [address] [phone] 04/04/2024 9:45 AM EST TH Visit (TeleHealth) Radiation Oncology at [address] [phone] Adrienne Singh PA [facility] DR HEMATOLOGY [place] [address] Scheduled Referrals Name Type Priority Associated Diagnoses [...] EDT Ercp Stent Placement Biliary Or Pancreatic Duct(36503) 10/25/2023 2:37 PM EDT pancreas head mass CHOLANGIOGRAM 10/25/2023 2:37 PM EDT pancreas head mass Ercp Balloon Dilatation Biliary/Pancreatic Duct Or Ampulla Ea Duct ([id number]) 10/25/2023 2:37 PM EDT pancreas head mass Ercp, Sphincterotomy ([id number]) 10/25/2023 2:37 PM EDT pancreas head mass Upgi Endoscopy W/Us Fn Bx ([id number]) 10/25/2023 2:37 PM EDT pancreas head mass Ercp, Diagnostic (36342) 10/25/2023 2:37 PM EDT pancreas head mass Endoscopic Us Exam, Esoph ([id number]) 10/25/2023 2:37 PM EDT pancreas head mass [...] Comprehensive metabolic panel (10/27/2023 3:35 AM EDT) [facility] Glucose 157 65 - 199 mg/dL 10/27/2023 5:56 AM EDT [facility] Comment:Glucose Concentratio n >=200 mg/dL plus symptoms is consistent with Diabetes Mellitus. Blood Urea Nitrogen 12 10 - 20 mg/dL 10/27/2023 5:56 AM [facility] Creatinine 0.53(L) 0.80 - 1.50 mg/dL 10/27/2023 5:56 AM [facility] Sodium 131(L) 135 - 145 mMol/L 10/27/2023 5:56 AM [facility] Potassium 3.5 3.5 - 5.0 mMol/L 10/27/2023 5:56 AM [facility] Chloride 95(L) 98 - 107 mMol/L 10/27/2023 5:56 AM [facility] Carbon Dioxide 22 22 - 31 mMol/L 10/27/2023 5:56 AM [facility] Anion Gap 14 5 - 15 mMol/L 10/27/2023 5:56 AM [facility] Calcium 8.4(L) 8.5 - 10.5 mg/dL 10/27/2023 5:56 AM [facility] Protein, Total 6.2 6.1 - 8.0 g/dL 10/27/2023 5:56 AM [facility] Albumin 3.5 3.2 - 5.2 g/dL 10/27/2023 5:56 AM [facility] Aspartate Aminotransferase 73(H) <=39 unit/L 10/27/2023 5:56 AM [facility] Alanine Aminotransferase 291(H) 0 - 55 unit/L 10/27/2023 5:56 AM [facility] Alkaline Phosphatase 329(H) 40 - 130 unit/L 10/27/2023 5:56 AM [facility] Bilirubin, Total 2.8(H) <=1.3 mg/dL 10/27/2023 5:56 AM [facility] Est Glomerular Filtration Rate - Male 101 mL/min/1. 73 m?? 10/27/2023 5:56 AM [facility] Comment: This patient's estimated [...] Gonzáles MD CHEMISTRY ORDERABLES Performing Organization Address City/[facility]/ZIP Co de Phone Number [facility] [place] [address] * (ABNORMAL) Magnesium (10/27/2023 3:35 AM EDT) Magnesium 0.63(L) 0.69 - 1.07 mMol/L 10/27/2023 5:56 AM EDT [facility] Blood VENOUS BLOOD SPECIMEN / Unknown IP Care Team Draw / Unknown 10/27/2023 3:35 AM EDT 10/27/2023 3:47 AM EDT Ros Gonzáles MD CHEMISTRY ORDERABLES [facility] [place] [address] * (ABNORMAL) Phosphorus (10/27/2023 3:35 AM EDT) Phosphorus 2.4(L) 2.5 - 4.5 mg/dL 10/27/2023 5:56 AM EDT [facility] Blood VENOUS BLOOD SPECIMEN / Unknown IP Care Team Draw / Unknown 10/27/2023 3:35 AM EDT 10/27/2023 3:47 AM EDT Ros Gonzáles MD CHEMISTRY ORDERABLES [facility] [place] [address] * (ABNORMAL) CBC (with Diff) (10/27/2023 3:35 AM EDT) White Blood Cell 9.79(H) 4.00 - 9.50 x10(3)/mc L 10/27/2023 3:54 AM EDT [facility] Red Blood Cell 3.65(L) 4.58 - 5.54 x10(6)/mc L 10/27/2023 3:54 AM EDT [facility] Hemoglobin 11.9(L) 13.7 - 16.5 g/dL 10/27/2023 3:54 AM EDT [facility] Hematocrit 34.1(L) 40.5 - 48.5 % 10/27/2023 3:54 AM EDT [facility] Mean Cell Volume 93.4(H) 82.9 - 93.1 fL 10/27/2023 3:54 AM EDT [facility] Mean Cell Hemoglobin 32.6(H) 27.5 - 32.1 pg 10/27/2023 3:54 AM EDT [facility] Mean Cell Hemoglobin Concentration 34.9 32.0 - 35.7 g/dL 10/27/2023 3:54 AM EDT [facility] Platelet 196 145 - 357 x10(3)/mc L 10/27/2023 3:54 AM EDT [facility] Mean Platelet Volume 12.0 7.6 - 12.9 fL 10/27/2023 3:54 AM EDT [facility] RDW Standard Deviation 47.1(H) 36.0 - 45.0 fL 10/27/2023 3:54 AM EDT [facility] RDW coefficient of variation 13.9(H) 11.4 - 13.8 % 10/27/2023 3:54 AM [facility] NRBC% auto 0.0 % 10/27/2023 3:54 AM [facility] NRBC Absolute 0.00 0.00 - 0.00 x10(3)/mc L 10/27/2023 3:54 AM [facility] Neutrophil % 80.7 % 10/27/2023 3:54 AM [facility] Neutrophil Absolute (ANC) - Automated 7.90(H) 1.70 - 6.10 x10(3)/mc L 10/27/2023 3:54 AM [facility] Lymph % 8.3 % 10/27/2023 3:54 AM [facility] Lymph Absolute 0.81(L) 0.90 - 3.20 x10(3)/mc L 10/27/2023 3:54 AM [facility] Monocyte % 9.3 % 10/27/2023 3:54 AM [facility] Monocyte Absolute 0.91(H) 0.30 - 0.90 x10(3)/mc L 10/27/2023 3:54 AM [facility] Eos % 0.8 % 10/27/2023 3:54 AM [facility] Eos Absolute 0.08 0.00 - 0.40 x10(3)/mc L 10/27/2023 3:54 AM [facility] Basophil % 0.3 % 10/27/2023 3:54 AM [facility] Baso Absolute 0.03 0.00 - 0.10 x10(3)/mc L 10/27/2023 3:54 AM [facility] Immature Gran % 0.6 % 3:54 AM [facility] Immature Gran Absolute 0.06(H) 0.00 - 0.04 x10(3)/mc L 10/27/2023 3:54 AM [facility] Blood VENOUS BLOOD SPECIMEN / Unknown IP Care Team Draw / Unknown 10/27/2023 3:35 AM EDT 10/27/2023 3:47 AM EDT Ros Gonzáles MD HEMATOLOGY ORDERABLE S [facility] [place] [address] * (ABNORMAL) Comprehensive metabolic panel (10/26/2023 4:00 AM EDT) Glucose 136 65 - 199 mg/dL 10/26/2023 4:45 AM EDT [facility] Comment:Glucose Concentratio n >=200 mg/dL plus symptoms is consistent with Diabetes Mellitus. Blood Urea Nitrogen 19 10 - 20 mg/dL 10/26/2023 4:45 AM EDT [facility] Creatinine 0.69(L) 0.80 - 1.50 mg/dL 10/26/2023 4:45 AM EDT [facility] Sodium 131(L) 135 - 145 mMol/L 10/26/2023 4:45 [facility] Potassium 3.6 3.5 - 5.0 mMol/L 10/26/2023 4:45 AM [facility] Chloride 94(L) 98 - 107 mMol/L 10/26/2023 4:45 AM [facility] Carbon Dioxide 24 22 - 31 mMol/L 10/26/2023 4:45 AM EDT [facility] Anion Gap 13 5 - 15 mMol/L 10/26/2023 4:45 AM [facility] Calcium 8.7 8.5 - 10.5 mg/dL 10/26/2023 4:45 AM EDT [facility] Protein, Total 6.2 6.1 - 8.0 g/dL 10/26/2023 4:45 AM [facility] Albumin 3.4 3.2 - 5.2 g/dL 10/26/2023 4:45 AM EDT [facility] Aspartate Aminotransferase 132(H) <=39 unit/L 10/26/2023 4:45 AM EDT [facility] Alanine Aminotransferase 400(H) 0 - 55 unit/L 10/26/2023 4:45 AM EDT [facility] Alkaline Phosphatase 384(H) 40 - 130 unit/L 10/26/2023 4:45 AM EDT [facility] Bilirubin, Total 3.6(H) <=1.3 mg/dL 10/26/2023 4:45 AM EDT [facility] Est Glomerular Filtration Rate - Male 93 mL/min/1. 73 m?? 10/26/2023 4:45 AM EDT [facility] Comment: This patient's estimated GFR [...] AM EDT Ros Gonzáles MD CHEMISTRY ORDERABLES [facility] [place] [address] * (ABNORMAL) Magnesium (10/26/2023 4:00 AM EDT) Magnesium 0.65(L) 0.69 - 1.07 mMol/L 10/26/2023 4:45 AM EDT [facility] Blood VENOUS BLOOD SPECIMEN / Unknown IP Care Team Draw / Unknown 10/26/2023 4:00 AM EDT 10/26/2023 4:12 AM EDT Ros Gonzáles MD CHEMISTRY ORDERABLES [facility] [place] [address] * Phosphorus (10/26/2023 4:00 AM EDT) Phosphorus 3.1 2.5 - 4.5 mg/dL 10/26/2023 4:45 AM EDT [facility] Blood VENOUS BLOOD SPECIMEN / Unknown IP Care Team Draw / Unknown 10/26/2023 4:00 AM EDT 10/26/2023 4:12 AM EDT Ros Gonzáles MD CHEMISTRY ORDERABLES Performing Organization Address City/[facility]/ZIP Co de Phone Number [facility] [place] [address] * (ABNORMAL) CBC (with Diff) (10/26/2023 4:00 AM EDT) Pathologist [facility] White Blood Cell 7.51 4.00 - 9.50 x10(3)/mc L 10/26/2023 4:47 AM EDT [facility] Red Blood Cell 3.79(L) 4.58 - 5.54 x10(6)/mc L 10/26/2023 4:47 AM EDT [facility] Hemoglobin 12.2(L) 13.7 - 16.5 g/dL 10/26/2023 4:47 AM EDT [facility] Hematocrit 35.2(L) 40.5 - 48.5 % 10/26/2023 4:47 AM EDT [facility] Mean Cell Volume 92.9 82.9 - 93.1 fL 10/26/2023 4:47 AM EDT [facility] Mean Cell Hemoglobin 32.2(H) 27.5 - 32.1 pg 10/26/2023 4:47 AM EDT [facility] Mean Cell Hemoglobin Concentration 34.7 32.0 - 35.7 g/dL 10/26/2023 4:47 AM [facility] Platelet 210 145 - 357 x10(3)/mc L 10/26/2023 4:47 AM [facility] Mean Platelet Volume 11.7 7.6 - 12.9 fL 10/26/2023 4:47 AM [facility] RDW Standard Deviation 48.8(H) 36.0 - 45.0 fL 10/26/2023 4:47 AM [facility] RDW coefficient of variation 14.3(H) 11.4 - 13.8 % 10/26/2023 4:47 AM [facility] NRBC% auto 0.0 % 10/26/2023 4:47 AM [facility] NRBC Absolute 0.00 0.00 - 0.00 x10(3)/mc L 10/26/2023 4:47 AM [facility] Neutrophil % 80.3 % 10/26/2023 4:47 AM [facility] Neutrophil Absolute (ANC) - Automated 6.04 1.70 - 6.10 x10(3)/mc L 10/26/2023 4:47 AM [facility] Lymph % 11.1 % 10/26/2023 4:47 AM [facility] Lymph Absolute 0.83(L) 0.90 - 3.20 x10(3)/mc L 10/26/2023 4:47 AM [facility] Monocyte % 6.8 % 10/26/2023 4:47 AM [facility] Monocyte Absolute 0.51 0.30 - 0.90 x10(3)/mc L 10/26/2023 4:47 AM [facility] Eos % 1.1 % 10/26/2023 4:47 AM [facility] Eos Absolute 0.08 0.00 - 0.40 x10(3)/mc L 10/26/2023 4:47 AM EDT [facility] Basophil % 0.3 % 10/26/2023 4:47 AM EDT [facility] Baso Absolute 0.02 0.00 - 0.10 x10(3)/mc L 10/26/2023 4:47 AM EDT [facility] Immature Gran % 0.4 % 4:47 AM EDT [facility] Immature Gran Absolute 0.03 0.00 - 0.04 x10(3)/mc L 10/26/2023 4:47 AM EDT [facility] Blood VENOUS BLOOD SPECIMEN / Unknown IP Care Team Draw / Unknown 10/26/2023 4:00 AM EDT 10/26/2023 4:13 AM EDT Ros Gonzáles MD HEMATOLOGY ORDERABLE S Performing Organization Address City[facility] Co de Phone Number [facility] [place] [address] * XR ERCP (10/25/2023 4:40 PM EDT) Narrative [facility] 10/25/2023 4:45 PM EDT See PACS for result report. Ros Gonzáles MD IM FILM LIBRARY ORD ERABLES Performing Organization Address [facility] de Phone Number [place], [place] * (ABNORMAL) Cytology FNA (10/25/2023 3:19 PM EDT) Case Report Medical Cytology Report ? Case: [id number] ? Authorizing Provider: ??Ros Gonzáles MD ?Collected: ? 10/25/2023 1519 ? Ordering Location: ? Gastroenterology at [facility] ?? Received: ?10/25/2023 1627 ? Pathologist: ? Garrick Vuong MD ? Specimen: ?Pancreas, Head, mass ? 10/28/2023 11:54 AM [facility] Specimen Source Pancreas, Head (EUS-guided FNA) 10/28/2023 11:54 AM [facility] Final Diagnosis Positive for malignancy 10/28/2023 11:54 AM [facility] Diagnosis Discussion Adenocarcinoma. 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 10/28/2023 11:54 AM [facility] Additional Studies Block Antibody [...] The assays were performed according to the vocational nursing instructor's instructions using anti MLH-1 (ES05), anti-MSH-2 ([id number]), andti-MSH-6 (44), and anti-PMS-2 (MRQ-28) antibodies. 10/28/2023 11:54 AM [facility] Disclaimer(s) Formalin-fixed, paraffin-embedded tissue [...] and other diagnostic tests. 10/28/2023 11:54 AM [facility] Clinical Information 83 yrs old male/EUS/ERCP/ pancreas head mass, malignant biliary obstruction 10/28/2023 11:54 AM [facility] Immediate Assessment Fine Needle [...] Discussion for final interpretation. 10/28/2023 11:54 AM [facility] Gross Description Received in formalin, approximately 45 mL total volume of cloudy, red fluid with clots. Total preparation: Diff-Quik slide(s): 4, Pap Stain slide(s): 4, and Cell Block: 1. 10/28/2023 11:54 AM [facility] Result Note THIS RESULT REQUIRES PHYSICIAN/CRYSTAL FOLLOW UP(A) 10/28/2023 11:54 AM [facility] Fine Needle Aspirate STRUCTURE OF HEAD OF PANCREAS / Unknown Non Blood Collection / Unknown 10/25/2023 3:19 PM EDT 10/25/2023 4:27 PM EDT Ros Gonzáles MD PATHOLOGY/CYTOLOGY O RDERABLES Performing Organization Address [facility]/State/ZIP Co de Phone Number [facility] [place] [address] * ERCP (10/25/2023 2:24 PM EDT) ERCP [facility] Endoscopy Procedure Date: 10/25/2023 2:24 PM ? Patient Name: Benny Zurita ? Date of : 1940 ? Age: 83 ? Order #: [id number] ? Instrument Name: [id number] ? Procedure: ? ERCP Providers: ? Andrew Reynoos, Aaron Schmitt ? Mariah Olmos, ? Spray Painter Referring MD: ?Andres Benitez MD Complications: ? [...] (10/25/2023 2:23 PM EDT) UPPER ENDOSCOPIC ULTRASOUND [facility] Endoscopy Procedure Date: 10/25/2023 2:23 PM ? Patient Name: Benny Zurita ? Date of : 1940 ? Age: 83 ? Order #: [id number] ? Instrument Name: [id number] ? Procedure: ? Upper EUS Patient Profile: ? 83m with suspected malignant ? biliary obstruction Providers: ? Andrew Reynoso, Aaron Schmitt ? Mariah Olmos, ? Spray Painter Referring MD: ? Medicines: ? See the [...] without invasion ? - Using a 22G [employer] needle with stylet through ? Duodenum, FNB [...] 9.50 x10(3)/mc L 10/25/2023 4:28 AM EDT [facility] Red Blood Cell 3.76(L) 4.58 - 5.54 x10(6)/mc L 10/25/2023 4:28 AM EDT [facility] Hemoglobin 12.2(L) 13.7 - 16.5 g/dL 10/25/2023 4:28 AM [facility] Hematocrit 34.1(L) 40.5 - 48.5 % 10/25/2023 4:28 AM [facility] Mean Cell Volume 90.7 82.9 - 93.1 fL 10/25/2023 4:28 AM [facility] Mean Cell Hemoglobin 32.4(H) 27.5 - 32.1 pg 10/25/2023 4:28 AM [facility] Mean Cell Hemoglobin Concentration 35.8(H) 32.0 - 35.7 g/dL 10/25/2023 4:28 AM [facility] Platelet 193 145 - 357 x10(3)/mc L 10/25/2023 4:28 AM [facility] Mean Platelet Volume 11.4 7.6 - 12.9 fL 10/25/2023 4:28 AM [facility] RDW Standard Deviation 46.3(H) 36.0 - 45.0 fL 10/25/2023 4:28 AM [facility] RDW coefficient of variation 13.9(H) 11.4 - 13.8 % 10/25/2023 4:28 AM [facility] NRBC% auto 0.0 % 10/25/2023 4:28 AM [facility] NRBC Absolute 0.00 0.00 - 0.00 x10(3)/mc L 10/25/2023 4:28 AM [facility] Neutrophil % 63.6 % 10/25/2023 4:28 AM [facility] Neutrophil Absolute (ANC) - Automated 2.88 1.70 - 6.10 x10(3)/mc L 10/25/2023 4:28 AM [facility] Lymph % 16.8 % 10/25/2023 4:28 AM [facility] Lymph Absolute 0.76(L) 0.90 - 3.20 x10(3)/mc L 10/25/2023 4:28 AM [facility] Monocyte % 11.1 % 10/25/2023 4:28 AM [facility] Monocyte Absolute 0.50 0.30 - 0.90 x10(3)/mc L 10/25/2023 4:28 AM [facility] Eos % 6.9 % 10/25/2023 4:28 AM [facility] Eos Absolute 0.31 0.00 - 0.40 x10(3)/mc L 10/25/2023 4:28 AM [facility] Basophil % 0.9 % 10/25/2023 4:28 AM [facility] Baso Absolute 0.04 0.00 - 0.10 x10(3)/mc L 10/25/2023 4:28 AM [facility] Immature Gran % 0.7 % 4:28 AM [facility] Immature Gran Absolute 0.03 0.00 - 0.04 x10(3)/mc L 10/25/2023 4:28 AM [facility] Blood VENOUS BLOOD SPECIMEN / Unknown IP Care Team Draw / Unknown 10/25/2023 3:53 AM EDT 10/25/2023 4:17 AM EDT Rj Rizvi MD HEMATOLOGY ORDERABLE S [facility] [place] [address] * (ABNORMAL) Comprehensive metabolic panel (10/25/2023 3:53 AM EDT) Glucose 121 65 - 199 mg/dL 10/25/2023 4:45 AM EDT [facility] Comment:Glucose Concentratio n >=200 mg/dL plus symptoms is consistent with Diabetes Mellitus. Blood Urea Nitrogen 20 10 - 20 mg/dL 10/25/2023 4:45 AM EDT [facility] Creatinine 0.70(L) 0.80 - 1.50 mg/dL 10/25/2023 4:45 AM EDT [facility] Sodium 131(L) 135 - 145 mMol/L 10/25/2023 4:45 AM EDT [facility] Potassium 3.7 3.5 - 5.0 mMol/L 10/25/2023 4:45 AM [facility] Chloride 97(L) 98 - 107 mMol/L 10/25/2023 4:45 AM [facility] Carbon Dioxide 22 22 - 31 mMol/L 10/25/2023 4:45 AM EDT [facility] Anion Gap 12 5 - 15 mMol/L 10/25/2023 4:45 AM EDT [facility] Calcium 8.8 8.5 - 10.5 mg/dL 10/25/2023 4:45 AM [facility] Protein, Total 5.9(L) 6.1 - 8.0 g/dL 10/25/2023 4:45 AM EDT [facility] Albumin 3.3 3.2 - 5.2 g/dL 10/25/2023 4:45 AM EDT [facility] Aspartate Aminotransferase 190(H) <=39 unit/L 10/25/2023 4:45 AM EDT [facility] Alanine Aminotransferase 458(H) 0 - 55 unit/L 10/25/2023 4:45 AM EDT [facility] Alkaline Phosphatase 366(H) 40 - 130 unit/L 10/25/2023 4:45 AM EDT [facility] Bilirubin, Total 8.5(H) <=1.3 mg/dL 10/25/2023 4:45 AM EDT [facility] Est Glomerular Filtration Rate - Male 93 mL/min/1. 73 m?? 10/25/2023 4:45 AM EDT [facility] Comment: This patient's estimated GFR [...] AM EDT Rj Rizvi MD CHEMISTRY ORDERABLES [facility] [place] [address] * (ABNORMAL) Basic Metabolic Panel (10/24/2023 4:17 PM EDT) Glucose 147 65 - 199 mg/dL 10/24/2023 4:48 PM EDT [facility] Comment:Glucose Concentratio n >=200 mg/dL plus symptoms is consistent with Diabetes Mellitus. Blood Urea Nitrogen 17 10 - 20 mg/dL 10/24/2023 4:48 PM EDT [facility] Creatinine 0.68(L) 0.80 - 1.50 mg/dL 10/24/2023 4:48 PM EDT [facility] Sodium 131(L) 135 - 145 mMol/L 10/24/2023 4:48 PM EDT [facility] Potassium 3.5 3.5 - 5.0 mMol/L 10/24/2023 4:48 PM EDT [facility] Chloride 94(L) 98 - 107 mMol/L 10/24/2023 4:48 PM EDT [facility] Carbon Dioxide 26 22 - 31 mMol/L 10/24/2023 4:48 PM EDT [facility] Anion Gap 11 5 - 15 mMol/L 10/24/2023 4:48 PM EDT [facility] Calcium 9.0 8.5 - 10.5 mg/dL 10/24/2023 4:48 PM EDT [facility] Est Glomerular Filtration Rate - Male 93 mL/min/1. 73 m?? 10/24/2023 4:48 PM EDT [facility] Comment: This patient's estimated GFR [...] PM EDT Rj Rizvi MD CHEMISTRY ORDERABLES [facility] [place] [address] * CT Chest w Contrast (10/24/2023 1:41 PM EDT) WORKSTATION ID [id number] RAD Anatomical Region Laterality Modality Chest Computed [...] officer that requested your imaging first. ? Electronically signed by: Mariam Johnson MD, [facility] ([phone]), at 10/24/2023 5:21 PM Narrative 10/24/2023 5:21 [...] services officer that requested your imaging first. Electronically signed by: Mariam Johnson MD, [facility]([phone]), at 10/24/2023 5:21 PM Rj Rizvi MD IMG CT ORDERABLES * (ABNORMAL) CBC (with Diff) (10/24/2023 4:11 AM EDT) White Blood Cell 5.21 4.00 - 9.50 x10(3)/mc L 10/24/2023 4:53 AM [facility] Red Blood Cell 3.79(L) 4.58 - 5.54 x10(6)/mc L 10/24/2023 4:53 AM EDT [facility] Hemoglobin 12.3(L) 13.7 - 16.5 g/dL 10/24/2023 4:53 AM [facility] Hematocrit 34.0(L) 40.5 - 48.5 % 10/24/2023 4:53 AM [facility] Mean Cell Volume 89.7 82.9 - 93.1 fL 10/24/2023 4:53 AM [facility] Mean Cell Hemoglobin 32.5(H) 27.5 - 32.1 pg 10/24/2023 4:53 AM [facility] Mean Cell Hemoglobin Concentration 36.2(H) 32.0 - 35.7 g/dL 10/24/2023 4:53 AM [facility] Platelet 204 145 - 357 x10(3)/mc L 10/24/2023 4:53 AM [facility] Mean Platelet Volume 11.6 7.6 - 12.9 fL 10/24/2023 4:53 AM [facility] RDW Standard Deviation 44.2 36.0 - 45.0 fL 10/24/2023 4:53 AM [facility] RDW coefficient of variation 13.4 11.4 - 13.8 % 10/24/2023 4:53 AM [facility] NRBC% auto 0.0 % 10/24/2023 4:53 AM [facility] NRBC Absolute 0.00 0.00 - 0.00 x10(3)/mc L 10/24/2023 4:53 AM [facility] Neutrophil % 70.5 % 10/24/2023 4:53 AM [facility] Neutrophil Absolute (ANC) - Automated 3.68 1.70 - 6.10 x10(3)/mc L 10/24/2023 4:53 AM [facility] Lymph % 15.2 % 10/24/2023 4:53 AM [facility] Lymph Absolute 0.79(L) 0.90 - 3.20 x10(3)/mc L 10/24/2023 4:53 AM [facility] Monocyte % 10.6 % 10/24/2023 4:53 AM [facility] Monocyte Absolute 0.55 0.30 - 0.90 x10(3)/mc L 10/24/2023 4:53 AM [facility] Eos % 2.5 % 10/24/2023 4:53 AM EDT [facility] Eos Absolute 0.13 0.00 - 0.40 x10(3)/mc L 10/24/2023 4:53 AM EDT [facility] Basophil % 0.6 % 10/24/2023 4:53 AM EDT [facility] Baso Absolute 0.03 0.00 - 0.10 x10(3)/mc L 10/24/2023 4:53 AM EDT [facility] Immature Gran % 0.6 % 4:53 AM EDT [facility] Immature Gran Absolute 0.03 0.00 - 0.04 x10(3)/mc L 10/24/2023 4:53 AM EDT [facility] Blood VENOUS BLOOD SPECIMEN / Unknown IP Care Team Draw / Unknown 10/24/2023 4:11 AM EDT 10/24/2023 4:43 AM EDT Rj Rizvi MD HEMATOLOGY ORDERABLE S [facility] [place] [address] * (ABNORMAL) Comprehensive metabolic panel (10/24/2023 4:11 AM EDT) Glucose 149 65 - 199 mg/dL 10/24/2023 5:55 AM EDT [facility] Comment:Glucose Concentratio n >=200 mg/dL plus symptoms is consistent with Diabetes Mellitus. Blood Urea Nitrogen 17 10 - 20 mg/dL 10/24/2023 5:55 AM EDT [facility] Creatinine 0.80 0.80 - 1.50 mg/dL 10/24/2023 5:55 AM EDT [facility] Sodium 133(L) 135 - 145 mMol/L 10/24/2023 5:55 AM EDT [facility] Potassium 3.9 3.5 - 5.0 mMol/L 10/24/2023 5:55 AM [facility] Chloride 99 98 - 107 mMol/L 10/24/2023 5:55 AM [facility] Carbon Dioxide 22 22 - 31 mMol/L 10/24/2023 5:55 AM [facility] Anion Gap 12 5 - 15 mMol/L 10/24/2023 5:55 AM [facility] Calcium 8.8 8.5 - 10.5 mg/dL 10/24/2023 5:55 AM [facility] Protein, Total 6.0(L) 6.1 - 8.0 g/dL 10/24/2023 5:55 AM [facility] Albumin 3.4 3.2 - 5.2 g/dL 10/24/2023 5:55 AM [facility] Aspartate Aminotransferase 224(H) <=39 unit/L 10/24/2023 5:55 AM [facility] Alanine Aminotransferase 498(H) 0 - 55 unit/L 10/24/2023 5:55 AM [facility] Alkaline Phosphatase 359(H) 40 - 130 unit/L 10/24/2023 5:55 AM [facility] Bilirubin, Total 7.8(H) <=1.3 mg/dL 10/24/2023 5:55 AM [facility] Est Glomerular Filtration Rate - Male 89 mL/min/1. 73 m?? 10/24/2023 5:55 AM [facility] Comment: This patient's estimated [...] AM EDT Rj Rizvi MD CHEMISTRY ORDERABLES [facility] [place] [address] * Phosphorus (10/23/2023 4:27 PM EDT) Phosphorus 3.6 2.5 - 4.5 mg/dL 10/23/2023 7:35 PM EDT [facility] Blood VENOUS BLOOD SPECIMEN / Unknown IP Care Team Draw / Unknown 10/23/2023 4:27 PM EDT 10/23/2023 4:35 PM EDT Rj Rizvi MD CHEMISTRY ORDERABLES Performing Organization Address City/[facility]/ZIP Co de Phone Number [facility] [place] [address] * Magnesium (10/23/2023 4:27 PM EDT) Magnesium 0.76 0.69 - 1.07 mMol/L 10/23/2023 7:35 PM EDT [facility] Blood VENOUS BLOOD SPECIMEN / Unknown IP Care Team Draw / Unknown 10/23/2023 4:27 PM EDT 10/23/2023 4:35 PM EDT Rj Rizvi MD CHEMISTRY ORDERABLES Performing Organization Address [facility]/ZIP Co de Phone Number [facility] [place] [address] * (ABNORMAL) Basic Metabolic Panel (10/23/2023 4:27 PM EDT) Glucose 164 65 - 199 mg/dL 10/23/2023 5:36 PM EDT [facility] Comment:Glucose Concentratio n >=200 mg/dL plus symptoms is consistent with Diabetes Mellitus. Blood Urea Nitrogen 16 10 - 20 mg/dL 10/23/2023 5:36 PM [facility] Creatinine 0.85 0.80 - 1.50 mg/dL 10/23/2023 5:36 PM [facility] Sodium 134(L) 135 - 145 mMol/L 10/23/2023 5:36 PM [facility] Potassium 2.9(LLL) 3.5 - 5.0 mMol/L 10/23/2023 5:36 PM [facility] Chloride 94(L) 98 - 107 mMol/L 10/23/2023 5:36 PM [facility] Carbon Dioxide 26 22 - 31 mMol/L 10/23/2023 5:36 PM [facility] Anion Gap 14 5 - 15 mMol/L 10/23/2023 5:36 PM [facility] Calcium 9.1 8.5 - 10.5 mg/dL 10/23/2023 5:36 PM [facility] Est Glomerular Filtration Rate - Male 87 mL/min/1. 73 m?? 10/23/2023 5:36 PM [facility] Comment: This patient's estimated [...] PM EDT Anjum Biggs MD CHEMISTRY ORDERABLES [facility] [place] [address] * EKG 12 Lead (10/23/2023 1:40 PM EDT) Ventricular rate 56 BPM MUSE SYSTEM Atrial Rate 56 BPM MUSE SYSTEM P-R Interval 146 ms MUSE SYSTEM QRS Duration 122 ms MUSE SYSTEM Q-T Interval 474 ms MUSE SYSTEM QTC Calculated (Bezet) 457 ms MUSE SYSTEM Calculated P [place] 46 degrees MUSE SYSTEM Calculated R [place] -59 degrees MUSE SYSTEM Calculated T [place] 43 degrees MUSE SYSTEM INTERPRETATION Sinus bradycardia with marked sinus arrhythmia Left anterior fascicular block Left ventricular hypertrophy with QRS widening ( R in aVL , [place] product ) Possible Lateral infarct , age undetermined Abnormal ECG No previous ECGs available Confirmed by Devon Leo MD ([id number]) on 10/24/2023 2:23:18 PM MUSE SYSTEM 10/23/2023 1:40 PM EDT 10/24/2023 2:23 PM EDT Leia Rincon MD ECG ORDERABLES Performing Organization Address [facility]/ZIP Co de Phone Number MUSE SYSTEM * ABORH RECHECK (10/23/2023 1:24 PM EDT) Pathologist [facility] ABORH Recheck O POSITIVE 10/23/2023 2:12 PM EDT [facility] Blood VENOUS BLOOD SPECIMEN / Unknown IP Care Team Draw / Unknown 10/23/2023 1:24 PM EDT 10/23/2023 1:29 PM EDT Leia Rincon MD BLOOD BANK LAB ORDER RICHELLE Performing Organization Address [facility]/ZIP Co de Phone Number [facility] [place] [address] * CT Abdomen & Pelvis w Contrast (10/23/2023 1:10 PM EDT) WORKSTATION ID [id number] RAD Anatomical Region Laterality Modality Abdomen, Pelvis [...] officer that requested your imaging first. ? Electronically signed by: Davy Sinclair MD, [facility] ([phone]), at 10/23/2023 1:26 PM Narrative 10/23/2023 1:26 [...] services officer that requested your imaging first. Leia Rincon MD [facility] ORDERABLES * (ABNORMAL) CBC (with Diff) (10/23/2023 12:32 PM EDT) White Blood Cell 4.60 4.00 - 9.50 x10(3)/mc L 10/23/2023 1:17 PM EDT [facility] Red Blood Cell 4.00(L) 4.58 - 5.54 x10(6)/mc L 10/23/2023 1:17 PM EDT [facility] Hemoglobin 13.1(L) 13.7 - 16.5 g/dL 10/23/2023 1:17 PM EDT [facility] Hematocrit 36.2(L) 40.5 - 48.5 % 10/23/2023 1:17 PM EDT [facility] Mean Cell Volume 90.5 82.9 - 93.1 fL 10/23/2023 1:17 PM [facility] Mean Cell Hemoglobin 32.8(H) 27.5 - 32.1 pg 10/23/2023 1:17 PM [facility] Mean Cell Hemoglobin Concentration 36.2(H) 32.0 - 35.7 g/dL 10/23/2023 1:17 PM [facility] Platelet 233 145 - 357 x10(3)/mc L 10/23/2023 1:17 PM [facility] Mean Platelet Volume 11.4 7.6 - 12.9 fL 10/23/2023 1:17 PM [facility] RDW Standard Deviation 43.7 36.0 - 45.0 fL 10/23/2023 1:17 PM [facility] RDW coefficient of variation 13.2 11.4 - 13.8 % 10/23/2023 1:17 PM [facility] NRBC% auto 0.0 % 10/23/2023 1:17 PM [facility] NRBC Absolute 0.00 0.00 - 0.00 x10(3)/mc L 10/23/2023 1:17 PM [facility] Neutrophil % 70.4 % 10/23/2023 1:17 PM [facility] Neutrophil Absolute (ANC) - Automated 3.24 1.70 - 6.10 x10(3)/mc L 10/23/2023 1:17 PM [facility] Lymph % 15.4 % 10/23/2023 1:17 PM [facility] Lymph Absolute 0.71(L) 0.90 - 3.20 x10(3)/mc L 10/23/2023 1:17 PM [facility] Monocyte % 10.0 % 10/23/2023 1:17 PM [facility] Monocyte Absolute 0.46 0.30 - 0.90 x10(3)/mc L 10/23/2023 1:17 PM EDT [facility] Eos % 2.6 % 10/23/2023 1:17 PM EDT [facility] Eos Absolute 0.12 0.00 - 0.40 x10(3)/mc L 10/23/2023 1:17 PM EDT [facility] Basophil % 0.9 % 10/23/2023 1:17 PM EDT [facility] Baso Absolute 0.04 0.00 - 0.10 x10(3)/mc L 10/23/2023 1:17 PM EDT [facility] Immature Gran % 0.7 % 1:17 PM EDT [facility] Immature Gran Absolute 0.03 0.00 - 0.04 x10(3)/mc L 10/23/2023 1:17 PM EDT [facility] Blood VENOUS BLOOD SPECIMEN / Unknown Venipuncture / Unknown 10/23/2023 12:32 PM EDT 10/23/2023 12:41 PM EDT Leia Rincon MD HEMATOLOGY ORDERABLE S [facility] [place] [address] * Type and screen ([facility]P/FREDY) (10/23/2023 12:32 PM EDT) ABORH Type O POSITIVE 10/23/2023 1:31 PM EDT [facility] PATIENT HISTORY Not Found 10/23/2023 1:31 PM EDT [facility] Expires at [id number] on: 10-26-2023 10/23/2023 1:31 PM EDT [facility] ANTIBODY SCREEN AUTOMATED Negative 10/23/2023 1:31 PM EDT [facility] T&S only valid at [facility] 10/23/2023 1:31 PM EDT [facility] Blood VENOUS BLOOD SPECIMEN / Unknown Venipuncture / Unknown 10/23/2023 12:32 PM EDT 10/23/2023 12:37 PM EDT Narrative [facility] - 10/23/2023 1:31 PM EDT This Type and Screen result is only valid at the [facility] Leia Rincon MD BLOOD BANK LAB ORDER RICHELLE Performing Organization Address [facility]/ZIP Co de Phone Number [facility] [place] [address] * Lipase (10/23/2023 12:32 PM EDT) Pathologist [facility] Lipase 49 0 - 60 unit/L 10/23/2023 1:11 PM EDT [facility] Blood VENOUS BLOOD SPECIMEN / Unknown Venipuncture / Unknown 10/23/2023 12:32 PM EDT 10/23/2023 12:41 PM EDT Leia Rincon MD CHEMISTRY ORDERABLES Performing Organization Address [facility]/ZIP Co de Phone Number [facility] [place] [address] * (ABNORMAL) Comprehensive metabolic panel (10/23/2023 12:32 PM EDT) [facility] Glucose 186 65 - 199 mg/dL 10/23/2023 1:13 PM EDT [facility] Comment:Glucose Concentratio n >=200 mg/dL plus symptoms is consistent with Diabetes Mellitus. Blood Urea Nitrogen 17 10 - 20 mg/dL 10/23/2023 1:13 PM EDT [facility] Creatinine 0.79(L) 0.80 - 1.50 mg/dL 10/23/2023 1:13 PM EDT [facility] Sodium 130(L) 135 - 145 mMol/L 10/23/2023 1:13 PM EDT [facility] Potassium 2.9(LLL) 3.5 - 5.0 mMol/L 10/23/2023 1:13 PM EDT [facility] Chloride 92(L) 98 - 107 mMol/L 10/23/2023 1:13 PM [facility] Carbon Dioxide 24 22 - 31 mMol/L 10/23/2023 1:13 PM [facility] Anion Gap 14 5 - 15 mMol/L 10/23/2023 1:13 PM [facility] Calcium 9.1 8.5 - 10.5 mg/dL 10/23/2023 1:13 PM [facility] Protein, Total 6.5 6.1 - 8.0 g/dL 10/23/2023 1:13 PM [facility] Albumin 3.8 3.2 - 5.2 g/dL 10/23/2023 1:13 PM [facility] Aspartate Aminotransferase 258(H) <=39 unit/L 10/23/2023 1:13 PM [facility] Alanine Aminotransferase 577(H) 0 - 55 unit/L 10/23/2023 1:13 PM [facility] Alkaline Phosphatase 375(H) 40 - 130 unit/L 10/23/2023 1:13 PM [facility] Bilirubin, Total 8.6(H) <=1.3 mg/dL 10/23/2023 1:13 PM [facility] Est Glomerular Filtration Rate - Male 89 mL/min/1. 73 m?? 10/23/2023 1:13 PM [facility] Comment: This patient's estimated [...] 12:32 PM EDT 10/23/2023 12:41 PM EDT eLia Rincon MD CHEMISTRY ORDERABLES [facility] [place] [address] documented in this encounter Visit Diagnoses Diagnosis [...] Intravenous, ONCE PRN, 1 dose, Starting on 10/24/23 at 1341, Until Wed10/24/23 at 1342, Per [...] Procedural area)1725 (MAR Unhold - Provider: Admin Adt)2056 (Given - Provider: Vanesa Vance, CARISSA) 2133 (Given - Provider: Peter Dixon, RN) fentaNYL (PF) (50 mcg/mL) injection 50 [...] Guzmán, RN)1142 (Stopped - Provider: Rosemary Guzmán, RN) montelukast [...] RN)2134 (Given - Provider: Peter Dixon RN) 08 (Given - Provider: Rosemary Guzmán, CARISSA) [...] Vance RN) 2134 (Given - Provider: Peter Dixon RN) Continuous Medication Order 10/25/2023 10/26/2023 10/27/2023 lactated ringers infusion (CANCELED) 100 mL/hr, Intravenous, CONTINUOUS, Starting on Wed10/25/23 at 1400, Until Wed10/26/23 at 0826 1343 (New Bag - Provider: Alethea Barnes RN) 0826 (Stopped - Provider: Rosemary Guzmán, CARISSA) PRN Medication Order 10/25/2023 10/26/2023 10/27/2023 bisacodyL [...] ineffective. documented in this encounter Care Teams Branch Library Clerk Relationship Specialty Start Date End Date Jez Vance MD [address] [place] [address] PCP - General 01/07/10 documented as of this encounter
--- OUTSIDE RECORDS SUMMARY | 2023-12-17 01:46 | XMS_ITS | Encounter Summary ---
Author Organization [facility] Address [facility] [place] [address] Care Team Providers Care Single End Sewer Name Role Phone Jez Vance MD Primary Care Provider [phone] Encounter Details Date Type Department Care Team (Late st Contact Info) Description 11/08/2023 Orders Only [place] [address] Kemal Matthews V, [facility] Hematology/[place] [address] Malignant neoplasm of head of pancreas; Malignant [...] from your doctor or pharmacy? Never 11/04/2023 [facility] Utilities Answer Date Recorded In the past 12 months has [employer], gas, oil, or water [employer] threatened to shut off services in your [...] AM EDT Office Visit Hematology/Oncology at [address] [phone] Antonio Brownlee MD [facility] [place] [address] Fani Haskins, [address] HEMATOLOGY AND ONCOLOGY [place], [place] [phone] 12/17/2023 9:00 AM EDT Infusion Hematology Oncology at [address] [phone] 12/17/2023 10:00 AM EDT Clinical Support Hematology/Oncology at [address] [phone] [facility] DR [place] [address] 12/24/2023 10:40 AM EST Office Visit Cardiology at [address] [phone] Cory Sellers MD [facility] [place] [address] 12/30/2023 9:00 AM EST Office Visit Hematology/Oncology at [address] [phone] Antonio Brownlee MD [facility] [place] [place] [address] Fani Haskins, [address] HEMATOLOGY AND ONCOLOGY [place], [place] [phone] 12/30/2023 9:30 AM EST Infusion Hematology Oncology at [address] [phone] 04/04/2024 9:45 AM EST TH Visit (TeleHealth) Radiation Oncology at [address] [phone] Adrienne Singh PA [facility] DR [place] [address] documented as of this encounter Visit Diagnoses Diagnosis 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
--- OUTSIDE RECORDS SUMMARY | 2023-12-17 01:46 | XMS_ITS | Encounter Summary ---
Author Organization [facility] Address [facility] [place] [address] Care Team Providers Care Detention Deputy Name Role Phone Jez Vance MD Primary Care Provider [phone] Reason for Visit * Consultation (Routine) - Closed Specialty Diagnoses / Procedures Referred By Deena yao Referred To Contact Hematology and Oncology Diagnoses Pancreatic mass Painless jaundice Malignant neoplasm of prostate Ros Gonzáles MD [facility] [place] [address] [facility] Hem Onc [address] [place] [address] Referral ID Status Reason Start Date Expiration Date V isits Requested Visits Authorized [id number] Closed Consult, Test & Treat 10/26/2023 10/25/2024 1 1 Encounter Details Date Type Department Care Team (Latest Contact Info) Description 11/09/2023 11:00 AM EDT Office Visit [place]ology [place] [address] Antonio Bowie MD [facility] [place] [address] Malignant neoplasm of head of pancreas; Exocrine [...] doctor or pharmacy? Never 11/04/2023 [facility] [...] any time in the past 12 m [facility], were you homeless or living [...] prostate cancer (Stage IIC: cT1c, cN0, cM0; [place] 4+4, PSA 11.9 S/p radiation, completed in [...] active buttires easily. 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 He was given [...] meet with our genetic counselor and Clinical Circle Cutting Saw Operator, Estrella Tompkins today. Consueloll plan to start [...] AM EDT Office Visit Hematology/Oncology at [address] [phone] Antonio Bowie MD [facility] [place] [address] [address] HEMATOLOGY AND ONCOLOGY [place], [place] [phone] 12/17/2023 9:00 AM EDT Infusion Hematology Oncology at [address] [phone] 12/17/2023 10:00 AM EDT Clinical Support Hematology/Oncology at [address] [phone] [facility] [address] [place] [address] 12/24/2023 10:40 AM EST Office Visit Cardiology at [address] [phone] Cory Sellers MD [facility] [place] [address] 12/30/2023 9:00 AM EST Office Visit Hematology/Oncology at [address] [phone] Antonio Bowie MD [facility] [place] [address] Fani Haskins, [address] HEMATOLOGY AND ONCOLOGY [place], [place] [phone] 12/30/2023 9:30 AM EST Infusion Hematology Oncology at [address] [phone] 04/04/2024 9:45 AM EST TH Visit (TeleHealth) Radiation Oncology at [address] [phone] Adrienne Singh PA [facility] DR [place]AT[place] [address] Scheduled Orders Name Type Priority Associated Diagnoses [...] Abnormal(A ) 11/17/2023 9:[address] [facility] Blood VENOUS BLOOD SPECIMEN / Unknown Venipuncture / Unknown 11/09/2023 12:35 PM EDT 11/09/2023 12:36 PM EDT Antonio Bowie MD MOLECULAR ORDERABLES Performing Organization Address City/[facility]/ZIP Co de Phone Number [facility] [place] [address] * (ABNORMAL) Carbohydrate Antigen 19-9 (11/09/2023 12:35 PM EDT) Pathologist [facility] [place] 19-9 110.0(H) <=35.0 units/mL 11/09/2023 1:35 PM EDT [facility] Comment:This result was gene rated using a Doreen Danis immunoassay. Results obtained from other methods or manufacturers cannot be used interchangeably with this method. Blood VENOUS BLOOD SPECIMEN / Unknown Venipuncture / Unknown 11/09/2023 12:35 PM EDT 11/09/2023 12:36 PM EDT Antonio Bowie MD CHEMISTRY ORDERABLES [facility] [place] [address] * (ABNORMAL) Comprehensive metabolic panel Non-fasting (11/09/2023 12:35 PM EDT) Glucose 115 65 - 199 mg/dL 11/09/2023 1:29 PM [facility] Comment:Glucose Concentratio n >=200 mg/dL plus symptoms is consistent with Diabetes Mellitus. Blood Urea Nitrogen 15 10 - 20 mg/dL 11/09/2023 1:29 PM [facility] Creatinine 0.68(L) 0.80 - 1.50 mg/dL 11/09/2023 1:29 PM [facility] Sodium 138 135 - 145 mMol/L 11/09/2023 1:29 PM [facility] Potassium 4.0 3.5 - 5.0 mMol/L 11/09/2023 1:29 PM [facility] Chloride 102 98 - 107 mMol/L 11/09/2023 1:29 PM [facility] Carbon Dioxide 24 22 - 31 mMol/L 11/09/2023 1:29 PM [facility] Anion Gap 12 5 - 15 mMol/L 11/09/2023 1:29 PM [facility] Calcium 8.9 8.5 - 10.5 mg/dL 11/09/2023 1:29 PM [facility] Protein, Total 6.6 6.1 - 8.0 g/dL 11/09/2023 1:29 PM [facility] Albumin 4.2 3.2 - 5.2 g/dL 11/09/2023 1:29 PM [facility] Aspartate Aminotransferase 21 <=39 unit/L 11/09/2023 1:29 PM [facility] Alanine Aminotransferase 50 0 - 55 unit/L 11/09/2023 1:29 PM [facility] Alkaline Phosphatase 159(H) 40 - 130 unit/L 11/09/2023 1:29 PM EDT [facility] Bilirubin, Total 0.9 <=1.3 mg/dL 11/09/2023 1:29 PM EDT [facility] Est Glomerular Filtration Rate - Male 93 mL/min/1. 73 m?? 11/09/2023 1:29 PM EDT [facility] Comment: This patient's [...] Fasting Status No 11/09/2023 1:29 PM EDT [facility] Blood VENOUS BLOOD SPECIMEN / Unknown Venipuncture / Unknown 11/09/2023 12:35 PM EDT 11/09/2023 12:36 PM EDT Antonio Bowie MD CHEMISTRY ORDERABLES [facility] [place] [address] * (ABNORMAL) CBC (with Diff) (11/09/2023 12:35 PM EDT) White Blood Cell 7.04 4.00 - 9.50 x10(3)/mc L 11/09/2023 1:00 PM EDT [facility] Red Blood Cell 3.81(L) 4.58 - 5.54 x10(6)/mc L 11/09/2023 1:00 PM EDT [facility] Hemoglobin 12.5(L) 13.7 - 16.5 g/dL 11/09/2023 1:00 PM EDT [facility] Hematocrit 36.5(L) 40.5 - 48.5 % 11/09/2023 1:00 PM [facility] Mean Cell Volume 95.8(H) 82.9 - 93.1 fL 11/09/2023 1:00 PM [facility] Mean Cell Hemoglobin 32.8(H) 27.5 - 32.1 pg 11/09/2023 1:00 PM [facility] Mean Cell Hemoglobin Concentration 34.2 32.0 - 35.7 g/dL 11/09/2023 1:00 PM [facility] Platelet 256 145 - 357 x10(3)/mc L 11/09/2023 1:00 PM [facility] Mean Platelet Volume 10.7 7.6 - 12.9 fL 11/09/2023 1:00 PM [facility] RDW Standard Deviation 44.8 36.0 - 45.0 fL 11/09/2023 1:00 PM [facility] RDW coefficient of variation 12.8 11.4 - 13.8 % 11/09/2023 1:00 PM [facility] NRBC% auto 0.0 % 11/09/2023 1:00 PM [facility] NRBC Absolute <0.01 <0.01 x10(3)/mc L 11/09/2023 1:00 PM [facility] Neutrophil % 74.7 % 11/09/2023 1:00 PM [facility] Neutrophil Absolute (ANC) - Automated 5.26 1.70 - 6.10 x10(3)/mc L 11/09/2023 1:00 PM [facility] Lymph % 14.9 % 11/09/2023 1:00 PM [facility] Lymph Absolute 1.05 0.90 - 3.20 x10(3)/mc L 11/09/2023 1:00 PM [facility] Monocyte % 7.5 % 11/09/2023 1:00 PM [facility] Monocyte Absolute 0.53 0.30 - 0.90 x10(3)/mc L 11/09/2023 1:00 PM EDT [facility] Eos % 2.0 % 11/09/2023 1:00 PM EDT [facility] Eos Absolute 0.14 0.00 - 0.40 x10(3)/mc L 11/09/2023 1:00 PM EDT [facility] Basophil % 0.6 % 11/09/2023 1:00 PM EDT [facility] Baso Absolute 0.04 0.00 - 0.10 x10(3)/mc L 11/09/2023 1:00 PM EDT [facility] Immature Gran % 0.3 % 1:00 PM EDT [facility] Immature Gran Absolute <0.04 0.00 - 0.04 x10(3)/mc L 11/09/2023 1:00 PM EDT [facility] Blood VENOUS BLOOD SPECIMEN / Unknown Venipuncture / Unknown 11/09/2023 12:35 PM EDT 11/09/2023 12:36 PM EDT Antonio Bowie MD HEMATOLOGY ORDERABLE S [facility] [place] [address] documented in this encounter Visit Diagnoses Diagnosis 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
--- OUTSIDE RECORDS SUMMARY | 2023-12-17 01:46 | XMS_ITS | Encounter Summary ---
Author Organization [facility] Address One [facility] [place] [address] Care Team Providers Care Hog Man Name Role Phone Jez Vance MD Primary Care Provider +1 [phone] Encounter Details Date Type Department Care Team (Late st Contact Info) Description 11/01/2023 Telephone Radiation Oncology at [address] [phone] Sapna Cox Social History Tobacco Use Types Packs/Day Years Used Date Smoking Tobacco: Never Smokeless Tobacco: Never Alcohol Use Standard Drinks/Week Comments Yes 1 (1 standard drink = 0.6 oz pur e alcohol) social drinker once a month [facility] Utilities Answer Date Recorded In [...] AM EDT Office Visit Hematology/Oncology at [address] [phone] Antonio Brownlee MD [facility] [place] [address] Fani Haskins APRN [address] [place] [address] DR HEMATOLOGY AND ONCOLOGY [place], [place] [phone] 12/17/2023 9:00 AM EDT Infusion Hematology Oncology at [address] [phone] 12/17/2023 10:00 AM EDT Clinical Support Hematology/Oncology at [address] [phone] [facility] DR HEMATOLOGY [place] [address] 12/24/2023 10:40 AM EST Office Visit Cardiology at [address] [phone] Cory Sellers MD [facility] [place] [address] 12/30/2023 9:00 AM EST Office Visit Hematology/Oncology at [address] [phone] Antonio Brownlee MD [facility] [place] [address] Fani Haskins APRN [address] [place] [address] DR HEMATOLOGY AND ONCOLOGY [place], [place] [id number] 12/30/2023 9:30 AM EST Infusion Hematology Oncology at [address] [phone] 04/04/2024 9:45 AM EST TH Visit (TeleHealth) Radiation Oncology at [address] [phone] Adrienne Singh PA [facility] DR HEMATOLOGY [place] [address] documented as of this encounter Visit Diagnoses Not on filedocumented in this encounter Care Teams Hog Man Relationship Specialty Start Date End Date Jez Vance MD [address] [place] [address] PCP - General 01/07/10 documented as of this encounter
--- OUTSIDE RECORDS SUMMARY | 2023-12-17 01:46 | XMS_ITS | Encounter Summary ---
Author Organization [facility] Address [facility] [place] [address] Care Team Providers Care Museum Specialist Name Role Phone Jez Vance MD Primary Care Provider +1 [phone] Encounter Details Date Type Department Care Team (Late st Contact Info) Description 11/09/2023 1:30 PM EDT Clinical Support [place]emat[place] [address] Davey Reed, PALLAVI [facility] [place] [address] Malignant neoplasm of prostate Social History Tobacco [...] In the past 12 months has e [employer], gas, oil, or water company threatened to [...] in a snf (including now)? No 11/04/2023 IPV Inpatient Questions [...] Reed, RD - 11/09/2023 1:30 PM EDT [facility] Initial Assessment Patient Name: Benny Zurita [...] more shot to go) Typically lives in [place] November to June but will be here [...] Information Height 175.3 cm Weight 83.915 kg Fleming Body Weight (IBW) (kg) 73.73 BMI (Calculated) 27.3 Estimated calorie needs 1850 at 25 kcals/Kg Estimated protein needs 96 grams/D Usual weight : 198 pounds to 200 pounds (Gains weight when down in [place]) 11/10/2023 Nutrition Diagnosis Problems Altered GI function;Involuntary [...] refer Benny to Nadege Howell RD at [facility] to re-evaluate. I have provided him with my card and contact information should he have any questions in the meantime. Thank you for this consult. DAVEY REED RD documented in this encounter Plan of Treatment Upcoming Encounters Date Type Department Care Team (Late Contact Info) Description 12/17/2023 8:30 AM EDT Office Visit Hematology/Oncology at [address] [phone] Antonio Brownlee MD [facility] [place] [address] Fani Haskins APRN [address] [place] [address] DR HEMATOLOGY AND ONCOLOGY [place], [place] [id number] 12/17/2023 9:00 AM EDT Infusion Hematology Oncology at [address] [phone] 12/17/2023 10:00 AM EDT Clinical Support Hematology/Oncology at [address] [phone] [facility] DR [place] [address] 12/24/2023 10:40 AM EST Office Visit Cardiology at [address] [phone] Cory Sellers MD [facility] [place] [address] 12/30/2023 9:00 AM EST Office Visit Hematology/Oncology at [address] [phone] Antonio Brownlee MD [facility] [place] [address] Fani Haskins [address] HEMATOLOGY AND ONCOLOGY [place], [place] [phone] 12/30/2023 9:30 AM EST Infusion Hematology Oncology at [address] [phone] 04/04/2024 9:45 AM EST TH Visit (TeleHealth) Radiation Oncology at [address] [phone] Adrienne Singh PA [facility] DR [place] [address] documented as of this encounter Visit Diagnoses Diagnosis Malignant neoplasm of prostate Malignant neoplasm of head of pancreas documented in this encounter Care Teams Museum Specialist Relationship Specialty Start Date End Date Jez Vance MD [address] [place] [address] PCP - General 01/07/10 documented as of this encounter
--- OUTSIDE RECORDS SUMMARY | 2023-12-17 01:46 | XMS_ITS | Encounter Summary ---
Author Organization [facility] Address [facility] [place] [address] Care Team Providers Care Engineering Group Leader Name Role Phone Jez Vance MD Primary Care Provider +1 [phone] Encounter Details Date Type Department Care Team (Late st Contact Info) Description 10/28/2023 Orders [place] [address] Andrew Reynoso MD [facility] [place] [address] Social History Tobacco Use Types Packs/Day Years Used Date Smoking Tobacco: Never Smokeless Tobacco: Never Alcohol Use Standard Drinks/Week Comments Yes 1 (1 standard drink = 0.6 oz pur e alcohol) social drinker once a month [facility] Utilities Answer Date Recorded In the past 12 months has [employer], gas, oil, or water [employer] threatened to shut off services in your [...] AM EDT Office Visit Hematology/Oncology at [address] [phone] Antonio Brownlee MD [facility] [place] [address] HEMATOLOGY AND ONCOLOGY [place], [place] [address] 12/17/2023 9:00 AM EDT Infusion Hematology Oncology at [address] [phone] 12/17/2023 10:00 AM EDT Clinical Support Hematology/Oncology at [address] [phone] [facility] DR HEMATOLOGY [place] [address] 12/24/2023 10:40 AM EST Office Visit Cardiology at [address] [phone] Cory Sellers MD [facility] [place] [address] 12/30/2023 9:00 AM EST Office Visit Hematology/Oncology at [address] [phone] Antonio Brownlee MD [facility] [place] [address] [address] HEMATOLOGY AND ONCOLOGY [place], [place] [phone] 12/30/2023 9:30 AM EST Infusion Hematology Oncology at [address] [phone] 04/04/2024 9:45 AM EST TH Visit (TeleHealth) Radiation Oncology at [address] [phone] Adrienne Singh PA [facility] HEMATOLOGY [place] [address] documented as of this encounter Visit Diagnoses Not on filedocumented in this encounter Care Teams Engineering Group Leader Relationship Specialty Start Date End Date Jez Vance MD [address] [place] [address] PCP - General 01/07/10 documented as of this encounter
--- OUTSIDE RECORDS SUMMARY | 2023-12-17 01:46 | XMS_ITS | Encounter Summary ---
Author Organization [facility] Address [facility] [place] [address] Care Team Providers Care Clean Room Operator Name Role Phone Jez Vance MD Primary Care Provider [phone] [phone] Encounter Details Date Type Department Care Team [...] living in a long-term (including now)? No 11/04/2023 IPV Inpatient Questions [...] 8:30 AM EDT Office Visit Hematology/Oncology at [address] [phone] Antonio Brownlee MD [facility] [place] [address] Fani Haskins APRN [address] [place] [address] DR HEMATOLOGY AND ONCOLOGY [place], [place] [phone] 12/17/2023 9:00 AM EDT Infusion Hematology Oncology at [address] [phone] 12/17/2023 10:00 AM EDT Clinical Support Hematology/Oncology at [address] [phone] [facility] DR HEMATOLOGY [place] [address] 12/24/2023 10:40 AM EST Office Visit Cardiology at [address] [phone] Cory Sellers MD [facility] [place] [address] 12/30/2023 9:00 AM EST Office Visit Hematology/Oncology at [address] [phone] Antonio Brownlee MD [facility] [place] [address] Fani Haskins [address] HEMATOLOGY AND ONCOLOGY [place], [place] [phone] 12/30/2023 9:30 AM EST Infusion Hematology Oncology at [address] [phone] 04/04/2024 9:45 AM EST TH Visit (TeleHealth) Radiation Oncology at [address] [address] Adrienne Singh PA [facility] HEMATOLOGY [place] [address] documented as of this encounter Visit Diagnoses Not on filedocumented in this encounter Care Teams Clean Room Operator Relationship Specialty Start Date End Date Jez Vance MD [address] [place] [address] PCP - General 01/07/10 documented as of this encounter
--- OUTSIDE RECORDS SUMMARY | 2023-12-17 01:46 | XMS_ITS | Encounter Summary ---
Author Organization [facility] Address [facility] [place] [address] Care Team Providers Care Shipping Technician Name Role Phone Jez Vance MD Primary Care Provider +1 [phone] Reason for Visit * Reason Comments Genetic Evaluation Encounter Details Date Type Department Care Team (Late st Contact Info) Description 11/09/2023 10:30 AM EDT Office Visit Hematology [place] [address] [facility]emat[facility]/[place] [address] Malignant neoplasm of head of pancreas; Malignant [...] from your doctor or pharmacy? Never 11/04/2023 [facility] Utilities Answer Date Recorded [...] encounter Progress Notes * Kemal Matthews V, [facility] - 11/09/2023 10:30 AM EDT Benny Zurita was seen by Kemal Matthews [facility] in consultation at the request of Ros [...] Father 83 metastatic Maternal ethnic background is Gabonese, Azeri. Paternal ethnic background is Australian. There is no known Ashkenazi Gnosticist ancestry. Genetic risk assessment Based on personal [...] impact pancreatic cancer treatment such as with algaaciq chemotherapy and/or PARP inhibitors as well as [...] gene alteration. Benny opted for testing with [employer]' CancerNext-Expanded +RNAinsight Panel, a next generation sequencing panel that simultaneously analyzes 71 genes, including BRCA1 and BRCA2, that contribute to increased risk for cancer. Benny was consented. His blood sample will be drawn today and sent to [facility]. Testing will take up to 3 weeks [...] AM EDT Office Visit Hematology/Oncology at [address] [phone] Antonio Brownlee MD [facility] [place] [address] Fani Haskins APRN [address] [place] [address] [place] [address] 12/17/2023 9:00 AM EDT Infusion Hematology Oncology at [address] [phone] 12/17/2023 10:00 AM EDT Clinical Support Hematology/Oncology at [address] [phone] [facility] DR [place] [address] 12/24/2023 10:40 AM EST Office Visit Cardiology at [address] [phone] Cory Sellers MD [facility] [place] [place] [address] 12/30/2023 9:00 AM EST Office Visit Hematology/Oncology at [address] [phone] Antonio Brownlee MD [facility] [place] [address] Fani Haskins [address] HEMATOLOGY AND ONCOLOGY [place], [place] [phone] 12/30/2023 9:30 AM EST Infusion Hematology Oncology at [address] [phone] 04/04/2024 9:45 AM EST TH Visit (TeleHealth) Radiation Oncology at [address] [address] Adrienne Singh PA [facility] DR [place] [address] documented as of this encounter Visit Diagnoses Diagnosis Malignant neoplasm of head of pancreas Malignant neoplasm of prostate Family history of prostate cancer Family history of malignant neoplasm of prostate Malignant neoplasm of head of pancreas documented in this encounter Care Teams Shipping Technician Relationship Specialty Start Date End Date Jez Vance MD [address] [place] [address] PCP - General 01/07/10 documented as of this encounter
--- OUTSIDE RECORDS SUMMARY | 2023-12-17 01:46 | XMS_ITS | Encounter Summary ---
Author Organization [facility] Address [facility] [address] Care Team Providers Care Title Attorney Name Role Phone Jez Vance MD Primary Care Provider [phone] [phone] Reason for Visit * Surgical (Routine) - Closed Specialty Diagnoses / Procedures Referred By Deena yao Referred To Contact General Surgery Diagnoses Malignant neoplasm of prostate Ros Gonzáles MD [facility] [place] [address] [facility] Gen Surgery [address] [place] [address] Referral ID Status Reason Start Date Expiration Date V isits Requested Visits Authorized [id number] Closed Consult, Test & Treat 10/28/2023 10/27/2024 1 1 Encounter Details Date Type Department Care Team (Late st Contact Info) Description 11/09/2023 9:30 AM EDT Office [place] [address] Carmen Obrien MD [facility] [place] [address] Malignant neoplasm of head of [...] your doctor or pharmacy? Never 11/04/2023 [facility] Utilities Answer Date Recorded In the past [...] time in the past 12 m [facility], were you homeless or living [...] Mr. Jones is an 83-year-old man from [place], [place]. He presented to his primary care physician with nausea, fatigue and progressive jaundice symptoms. A workup was initiated with ultrasound suggesting possible mass in the pancreas with obstructed dilated intrahepatic and extrahepatic bile ducts. MRI was ordered though awaiting scheduling he felt progressively unwell and with worsening jaundice and presented to [facility]. 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 He drinks alcohol very rarely. Geris not smoke. Family History: He has no brothers, 1 sister, 1 son and 1 daughter. His son-in-law has a history ofmetastatic colon cancer and is a patient of Dr. Brownlee's. His mother at the age of 98 [...] will be scheduled this 11/12/2023 at the [facility]. He is eager to have the other pancreas tumor clinic evaluations with Byron Storey and Dr. Brownlee who is mzpvnd-ex-don's oncologist for metastatic colon cancer. Time Spent With Patient: 60 minutes of this 80 minute visit were spent in [id number] discussion and counseling the patient as detailed above. documented in this encounter Plan of Treatment Upcoming Encounters Date Type Department Care Team (Late st Contact Info) Description 12/17/2023 8:30 AM EDT Office Visit Hematology/Oncology at [address] [phone] Antonio Brownlee MD [facility] [place] [address] Fani Haskins [address] HEMATOLOGY AND ONCOLOGY [place], [place] [phone] 12/17/2023 9:00 AM EDT Infusion Hematology Oncology at [address] [phone] 12/17/2023 10:00 AM EDT Clinical Support Hematology/Oncology at [address] [phone] [facility] DR [place] [address] 12/24/2023 10:40 AM EST Office Visit Cardiology at [address] [phone] Cory Sellers MD [facility] [place] [place] [address] 12/30/2023 9:00 AM EST Office Visit Hematology/Oncology at [address] [phone] Antonio Brownlee MD [facility] [place] [address] Fani Haskins [address] HEMATOLOGY AND ONCOLOGY [place], [place] [phone] 12/30/2023 9:30 AM EST Infusion Hematology Oncology at [address] [phone] 04/04/2024 9:45 AM EST TH Visit (TeleHealth) Radiation Oncology at [address] [phone] Adrienne Singh PA [facility] DR [place] [address] Scheduled Referrals Name Type Priority Associated Diagnoses Orde r Schedule Referral to General Surgery Outpatient Referral Routine Malignant neoplasm of prostate Ordered: 10/28/2023 documented as of this encounter Visit Diagnoses Diagnosis 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
--- OUTSIDE RECORDS SUMMARY | 2023-12-17 01:47 | XMS_ITS | Encounter Summary ---
Author Organization [facility] Address One [facility] [place] [address] Care Team Providers Care Vp Cardiovascular Name Role Phone Jez Vance MD Primary Care Provider [phone] [phone] Encounter Details Date Type Department Care Team (Late st Contact Info) Description 12/28/2022 Telephone Radiation Oncology at [address] [phone] Joanie Ma Social History Tobacco [...] because he is on his was to [place] for the winter and was assisting with [...] 8:30 AM EDT Office Visit Hematology/Oncology at [address] [phone] Antonio Brownlee MD [facility] [place] [address] Fani Haskins APRN [address] [place] [address] DR HEMATOLOGY [place] [address] 12/17/2023 9:00 AM EDT Infusion Hematology Oncology at [address] [phone] 12/17/2023 10:00 AM EDT Clinical Support Hematology/Oncology at [address] [phone] [facility] HEMATOLOGY [place] [address] 12/24/2023 10:40 AM EST Office Visit Cardiology at [address] [phone] Cory Sellers MD [facility] [place] [address] 12/30/2023 9:00 AM EST Office Visit Hematology/Oncology at [address] [phone] Anotnio Brownlee MD [facility] [place] [address] HEMATOLOGY AND ONCOLOGY [place], [place] [phone] 12/30/2023 9:30 AM EST Infusion Hematology Oncology at [address] [phone] 04/04/2024 9:45 AM EST TH Visit (TeleHealth) Radiation Oncology at [address] [phone] Adrienne Singh PA [facility] HEMATOLOGY [place] [address] documented as of this encounter Visit Diagnoses Not on filedocumented in this encounter Care Teams Vp Cardiovascular Relationship Specialty Start Date End Date Jez Vance MD [address] [place] [address] PCP - General 01/07/10 documented as of this encounter
--- OUTSIDE RECORDS SUMMARY | 2023-12-17 01:47 | XMS_ITS | Encounter Summary ---
Author Organization [facility] Address [facility] [place] [address] Care Team Providers Care Gas Pumping Station Helper Name Role Phone Jez Vance MD Primary Care Provider [phone] [phone] Reason for Visit * Reason Comments Injections Lupron * Treatment/Therapy Plan Authorization (Routine) - Authorized Specialty Diagnoses / Procedures Referred By Deena yao Referred To Contact Radiation Oncology / Hematology and Oncology Diagnoses Malignant neoplasm of prostate Procedures TC LEUPROLIDE ACETATE 7.5MG, FOR DEPOST SUSPENSION (LUPRON DEPOT) [id number] LUPRON DEPOT Toro Hayes MD [address] [place] [address] [place] [address] Toro Hayes MD [address] [place] [address] [place] [address] Referral ID Status Reason Start Date Expiration Date V isits Requested Visits Authorized [id number] Authorized 11/06/2022 11/06/2023 99 99 Encounter Details Date Type Department Care Team (Late st Contact Info) Description 12/04/2022 8:30 AM EDT Infusion Hematology Oncology at [address] [phone] Malignant neoplasm of prostate Social History Tobacco [...] Lupron today as he is leaving for [place] for the winter. He will get next dosein May in [place] and let us know when he plans to return to our area so we can schedule him accordingly. documented in this encounter Plan of Treatment Upcoming Encounters Date Type Department Care Team (Late st Contact Info) Description 12/17/2023 8:30 AM EDT Office Visit Hematology/Oncology at [address] [phone] Antonio Brownlee MD [facility] [place] [address] Fani Haskins APRN [address] [place] [address] DR [place] [address] 12/17/2023 9:00 AM EDT Infusion Hematology Oncology at [address] [address] 12/17/2023 10:00 AM EDT Clinical Support Hematology/Oncology at [address] [phone] [facility] HEMATOLOGY [place] [address] 12/24/2023 10:40 AM EST Office Visit Cardiology at [address] [phone] Cory Sellers MD [facility] [place] [address] 12/30/2023 9:00 AM EST Office Visit Hematology/Oncology at [address] [phone] Antonio Brownlee MD [facility] [place] [address] Fani Haskins APRN [address] [place] [address] DR HEMATOLOGY AND ONCOLOGY [place], [place] [address] 12/30/2023 9:30 AM EST Infusion Hematology Oncology at [address] [phone] 04/04/2024 9:45 AM EST TH Visit (TeleHealth) Radiation Oncology at [address] [phone] Adrienne Singh PA [facility] DR HEMATOLOGY [place] [address] documented as of this encounter Visit Diagnoses [...] mg documented in this encounter Care Teams Gas Pumping Station Helper Relationship Specialty Start Date End Date Jez Vance MD [address] [place] [address] PCP - General 01/07/10 documented as of this encounter
--- OUTSIDE RECORDS SUMMARY | 2023-12-17 01:47 | XMS_ITS | Encounter Summary ---
Author Organization [facility] Address One [facility] [place] [address] Care Team Providers Care Table Cut Off Saw Operator Name Role Phone Jez Vance MD Primary Care Provider +1 [phone] Encounter Details Date Type Department Care Team [...] AM EDT Office Visit Hematology/Oncology at [address] [phone] Antonio Brownlee MD [facility] [place] [address] Fani Haskins APRN [address] [place] [address] DR HEMATOLOGY AND ONCOLOGY [place], [place] [phone] 12/17/2023 9:00 AM EDT Infusion Hematology Oncology at [address] [phone] 12/17/2023 10:00 AM EDT Clinical Support Hematology/Oncology at [address] [phone] [facility] DR [place] [address] 12/24/2023 10:40 AM EST Office Visit Cardiology at [address] [phone] Cory Sellers MD [facility] [place] [address] 12/30/2023 9:00 AM EST Office Visit Hematology/Oncology at [address] [phone] Antonio Brownlee MD [facility] [place] [address] Fani Haskins APRN [address] [place] [address] DR [place] [address] 12/30/2023 9:30 AM EST Infusion Hematology Oncology at [address] [phone] 04/04/2024 9:45 AM EST TH Visit (TeleHealth) Radiation Oncology at [address] [phone] Adrienne Singh PA [facility] DR [place] [address] documented as of this encounter Visit Diagnoses Not on filedocumented in this encounter Care Teams Table Cut Off Saw Operator Relationship Specialty Start Date End Date Jez Vance MD [address] [place] [address] PCP - General 01/07/10 documented as of this encounter
--- OUTSIDE RECORDS SUMMARY | 2023-12-17 01:47 | XMS_ITS | Encounter Summary ---
Author Organization [facility] Address One [facility] [place] [address] Care Team Providers Care Bar Porter Name Role Phone Jez Vance MD Primary Care Provider +1 [phone] Encounter Details Date Type Department Care Team (Late st Contact Info) Description 11/30/2022 8:00 AM EDT Notes Only Radiation Oncology at [address] [phone] Toro Hayes MD [address] [place] [address] [place] [address] Social History Tobacco Use Types [...] from the original note were not included. [facility] Medicine Radiation Oncology Radiation Therapy [...] Follow-up phone visit with Radiation Oncology in [facility] is scheduled for 01/01/23; he has received instructions to call this office or seek the help of the local emergency room if any further problems should arise prior to followup. TORO HAYES MD 12/04/2022 National [facility] [place] (NCI) [facility] [employer] Commission on Cancer (ACS [place]err[place]) Accredited Cancer Program [employer] (ACR) Accredited Radiation Oncology Program documented in this encounter Plan of Treatment Upcoming Encounters Date Type Department Care Team (Late st Contact Info) Description 12/17/2023 8:30 AM EDT Office Visit Hematology/Oncology at [address] [phone] Antonio Brownlee MD [facility] [place] [address] Fani Haskins APRN [address] [place] [address] DR HEMATOLOGY AND ONCOLOGY [place], [place] [address] 12/17/2023 9:00 AM EDT Infusion Hematology Oncology at [address] [phone] 12/17/2023 10:00 AM EDT Clinical Support Hematology/Oncology at [address] [phone] [facility] DR [place] [address] 12/24/2023 10:40 AM EST Office Visit Cardiology at [address] [phone] Cory Sellers MD [facility] [place] [address] 12/30/2023 9:00 AM EST Office Visit Hematology/Oncology at [address] [phone] Antonio Brownlee MD [facility] [place] [address] Fani Haskins APRN [address] [place] [address] DR HEMATOLOGY AND ONCOLOGY [place], [place] [phone] 12/30/2023 9:30 AM EST Infusion Hematology Oncology at [address] [phone] 04/04/2024 9:45 AM EST TH Visit (TeleHealth) Radiation Oncology at [address] [phone] Adrienne Singh PA [facility] DR [place] [address] documented as of this encounter Visit Diagnoses Not on filedocumented in this encounter Care Teams Bar Porter Relationship Specialty Start Date End Date Jez Vance MD [address] [place] [address] PCP - General 01/07/10 documented as of this encounter
--- OUTSIDE RECORDS SUMMARY | 2023-12-17 01:47 | XMS_ITS | Encounter Summary ---
Author Organization [facility] Address One [facility] [place] [address] Care Team Providers Care Tube Winder Name Role Phone Jez Vance MD Primary Care Provider +1 [phone] Encounter Details Date Type Department Care Team [...] AM EDT Office Visit Hematology/Oncology at [address] [phone] Antonio Brownlee MD [facility] [place] [place] [address] Fani Haskins APRN [address] [place] [address] DR HEMATOLOGY AND ONCOLOGY [place], [place] [phone] 12/17/2023 9:00 AM EDT Infusion Hematology Oncology at [address] [phone] 12/17/2023 10:00 AM EDT Clinical Support Hematology/Oncology at [address] [phone] [facility] DR HEMATOLOGY [place] [address] 12/24/2023 10:40 AM EST Office Visit Cardiology at [address] [phone] Cory Sellers MD [facility] [place] [address] 12/30/2023 9:00 AM EST Office Visit Hematology/Oncology at [address] [phone] Antonio Brownlee MD [facility] [place] [place] [address] Fani Haskins APRN [address] [place] [address] DR [place] [address] 12/30/2023 9:30 AM EST Infusion Hematology Oncology at [address] [phone] 04/04/2024 9:45 AM EST TH Visit (TeleHealth) Radiation Oncology at [address] [phone] Adrienne Singh PA [facility] DR HEMATOLOGY [place] [address] documented as of this encounter Visit Diagnoses Not on filedocumented in this encounter Care Teams Tube Winder Relationship Specialty Start Date End Date Jez Vance MD [address] [place] [address] PCP - General 01/07/10 documented as of this encounter
--- OUTSIDE RECORDS SUMMARY | 2023-12-17 01:47 | XMS_ITS | Encounter Summary ---
[place] [address] Care Team Providers Care Hot Tamale Worker Name Role Phone Jez Vance MD Primary Care Provider +1 [phone] Reason for Visit * Auth/Cert (Routine) Specialty Diagnoses / Procedures Referred By Deena yao Referred To Contact Diagnoses Cholestatic liver [place] [address] [facility] Referral ID Status Reason Start Date Expiration Date Visits Re quested Visits Authorized [id number] 1 1 Encounter Details Date Type Department Care Team (Late st Contact Info) Description 10/21/2023 [place] [address] Brielle Lowry PA [address] [place] [address] Other specified diseases of pancreas; Abnormal weight loss; Pruritus, unspecified; Unspecified abdominal pain Social History Tobacco Use Types Packs/Day Years Used Date Smoking Tobacco: Never Smokeless Tobacco: Never Alcohol Use Standard Drinks/Week Comments Yes 1 (1 standard drink = 0.6 oz pur e alcohol) social drinker once a month [facility] Utilities Answer Date Recorded In the past 12 months has [employer], gas, oil, or water company threatened [...] time in the past 12 m [facility], were you homeless or living in a [...] AM EDT Office Visit Hematology/Oncology at [address] [phone] Antonio Brownlee MD [facility] [place] [address] [address] HEMATOLOGY AND ONCOLOGY [place], [place] [address] 12/17/2023 9:00 AM EDT Infusion Hematology Oncology at [address] [phone] 12/17/2023 10:00 AM EDT Clinical Support Hematology/Oncology at [address] [phone] [facility] DR HEMATOLOGY [place] [address] 12/24/2023 10:40 AM EST Office Visit Cardiology at [address] [phone] Cory Sellers MD [facility] [place] [address] 12/30/2023 9:00 AM EST Office Visit Hematology/Oncology at [address] [phone] Antonio Brownlee MD [facility] [place] [address] Fani Haskins [address] HEMATOLOGY AND ONCOLOGY [place], [place] [address] 12/30/2023 9:30 AM EST Infusion Hematology Oncology at [address] [phone] 04/04/2024 9:45 AM EST TH Visit (TeleHealth) Radiation Oncology at [address] [phone] Adrienne Singh PA [facility] DR [place] [address] documented as of this encounter Procedures Procedure Name Priority Date/Time Associated Diagnosis Comments CARBOHYDRATE ANTIGEN 19-9 Routine 10/21/2023 3:09 PM EDT Other specified diseases of pancreas Abnormal weight loss Pruritus, unspecified Unspecified abdominal pain documented in this encounter Results * (ABNORMAL) Carbohydrate Antigen 19-9 (10/21/2023 3:09 PM EDT) CA 19-9 79.0(H) <=35.0 units/mL 10/21/2023 10:53 PM EDT [facility] Comment:This result was gene rated using a Doreen Danis immunoassay. Results obtained from other methods or manufacturers cannot be used interchangeably with this method. Blood VENOUS BLOOD SPECIMEN / Unknown 10/21/2023 3:09 PM EDT 10/21/2023 10:27 PM EDT ISMAEL Avila CHEMISTRY ORDERAB LES [facility] [place] [address] documented in this encounter Visit Diagnoses Diagnosis Other specified diseases of pancreas Abnormal weight loss Loss of weight Pruritus, unspecified Unspecified abdominal pain Malignant neoplasm of head of pancreas documented in this encounter Care Teams Hot Tamale Worker Relationship Specialty Start Date End Date Jez Vance MD [address] [place] [address] PCP - General 01/07/10 documented as of this encounter
--- OUTSIDE RECORDS SUMMARY | 2023-12-17 01:47 | XMS_ITS | Encounter Summary ---
Author Organization [facility] Address One [facility] [place] [address] Care Team Providers Care Information Security Risk Analyst Name Role Phone Jez Vance MD Primary Care Provider +1 -[phone] Encounter Details Date Type Department Care Team [...] in a penitentiary (including now)? No 08/06/2022 DH IPV Inpatient [...] 8:30 AM EDT Office Visit Hematology/Oncology at [address] [phone] Antonio Brownlee MD [facility] [place] [address] Fani Haskins APRN [address] [place] [address] DR HEMATOLOGY AND ONCOLOGY [place], [place] [phone] 12/17/2023 9:00 AM EDT Infusion Hematology Oncology at [address] [phone] 12/17/2023 10:00 AM EDT Clinical Support Hematology/Oncology at [address] [phone] [facility] [place] [address] 12/24/2023 10:40 AM EST Office Visit Cardiology at [address] [phone] Cory Sellers MD [facility] [place] [address] 12/30/2023 9:00 AM EST Office Visit Hematology/Oncology at [address] [phone] Antonio Brownlee MD [facility] [place] [address] Fani Haskins, CINDER [employer] [address] [place] [address] DR HEMATOLOGY AND ONCOLOGY [place], [place] 48[address]89 12/30/2023 9:30 AM EST Infusion Hematology Oncology at [address] [phone] 04/04/2024 9:45 AM EST TH Visit (TeleHealth) Radiation Oncology at [address] [phone] Adrienne Singh PA [facility] [place] [address] documented as of this encounter Visit Diagnoses Not on filedocumented in this encounter Care Teams Information Security Risk Analyst Relationship Specialty Start Date End Date Jez Vance MD [address] [place] [address] PCP - General 01/07/10 documented as of this encounter
--- OUTSIDE RECORDS SUMMARY | 2023-12-17 01:47 | XMS_ITS | Encounter Summary ---
Author Organization [facility] Address One [facility] [place] [address] Care Team Providers Care Manager Of Financial Reporting Name Role Phone Jez Vance MD Primary Care Provider +1 [phone] Encounter Details Date Type Department Care Team (Late st Contact Info) Description 11/27/2022 10:25 AM EDT Office Visit Radiation Oncology at [address] [phone] Toro Hayes MD [address] [place] [address] [place] [address] Malignant neoplasm of prostate Social [...] from the original note were not included. [facility] Medicine Radiation Oncology Radiation Oncology On-treatment [...] 12/04/22 - he plans to go to [place] immediately after this LUTS Rec Flomax to 0.4mg --> 0.8mg qhs and ibuprofen 400-600mg QHS PRN. Emergency ISC teaching provided earlier this week, given he is driving to [place] immediately after completing RT. Followup: Phone visit in 4-6 weeks, or sooner PRN. PSA recheck in January in [place] (his urologist will arrange). He will get a Lupron in May there as well, and then notify us when he plans to come back to [place]. No orders of the defined types were placed in this encounter. National Cancer [place] (NCI) Comprehensive Cancer Center [employer] Commission on Cancer (ACS Monserrat) Accredited Cancer Program [employer] (ACR) Accredited Radiation Oncology Program documented in this encounter Plan of Treatment Upcoming Encounters Date Type Department Care Team (Late st Contact Info) Description 12/17/2023 8:30 AM EDT Office Visit Hematology/Oncology at [address] [phone] Antonio Brownlee MD [facility] [place] [address] Fani Haskins APRN [address] [place] [address] DR HEMATOLOGY AND ONCOLOGY [place], [place] [address] 12/17/2023 9:00 AM EDT Infusion Hematology Oncology at [address] [phone] 12/17/2023 10:00 AM EDT Clinical Support Hematology/Oncology at [address] [phone] [facility] DR [place] [address] 12/24/2023 10:40 AM EST Office Visit Cardiology at [address] [phone] Cory Sellers MD [facility] [place] [address] 12/30/2023 9:00 AM EST Office Visit Hematology/Oncology at [address] [phone] Antonio Brownlee MD [facility] [place] [address] Fani Haskins N[employer] SCHO[employer] TE[employer]ER [address] [place] [address] DR HEMATOLOGY AND ONCOLOGY [place], [place] [phone] 12/30/2023 9:30 AM EST Infusion Hematology Oncology at [address] [phone] 04/04/2024 9:45 AM EST TH Visit (TeleHealth) Radiation Oncology at [address] [phone] Adrienne Singh PA [facility] DR [place] [address] documented as of this encounter Visit Diagnoses Diagnosis Malignant neoplasm of 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
--- OUTSIDE RECORDS SUMMARY | 2023-12-17 01:47 | XMS_ITS | Encounter Summary ---
Author Organization [facility] Address [facility] [place] [address] Care Team Providers Care Clinical Veterinarian Name Role Phone Jez Vance MD Primary Care Provider +1 [phone] Encounter Details Date Type Department Care Team (Late st Contact Info) Description 07/01/2023 External Results [place] [address] Adrienne Singh MD [facility] [place] [address] Social History Tobacco Use Types Packs/Day Years [...] 8:30 AM EDT Office Visit Hematology/Oncology at [address] [phone] Antonio Brownlee MD [facility] [place] [address] Fani Haskins APRN [address] [place] [address] DR HEMATOLOGY AND ONCOLOGY [place], [place] 2968[address] 12/17/2023 9:00 AM EDT Infusion Hematology Oncology at [address] [phone] 12/17/2023 10:00 AM EDT Clinical Support Hematology/Oncology at [address] [phone] [facility] HEMATOLOGY [place] [address] 12/24/2023 10:40 AM EST Office Visit Cardiology at [address] [phone] Cory Sellers MD [facility] [place] [address] 12/30/2023 9:00 AM EST Office Visit Hematology/Oncology at [address] [phone] Antonio Brownlee MD [facility] [place] [address] Fani Haskins APRN [address] [place] [address] DR HEMATOLOGY AND ONCOLOGY [place], [place] 2059[address] 12/30/2023 9:30 AM EST Infusion Hematology Oncology at [address] [phone] 04/04/2024 9:45 AM EST TH Visit (TeleHealth) Radiation Oncology at [address] [phone] Adrienne Singh PA [facility] DR HEMATOLOGY [place] [address] documented as of this encounter Procedures Procedure Name Priority Date/Time Associated Diagnosis Comments [facility] RESULT Routine 07/01/2023 9:45 AM EDT CBC (WITH DIFF) Routine 07/01/2023 9:45 AM EDT TESTOSTERONE, TOTAL Routine 07/01/2023 9 :45 AM EDT COMPREHENSIVE METABOLIC PANEL Routine 07/01/2023 9:45 AM EDT documented in this encounter Results * (ABNORMAL) Testosterone, total (07/01/2023 9:45 AM EDT) Testosterone 11(L) [facility] 07/01/2023 9:45 AM EDT 07/01/2023 9:48 AM EDT Narrative [facility] - 07/11/2023 5:00 PM EDT Component ? Value ?RefRange ??Units ? Status Abn? TESTOSTERONE, TOTAL, MALES ?11 ? 250-827 ?? ng/dL ? F ?L (ADULT), [place] ? In hypogonadal males, Testosterone, Total, LC/MS/MS, ? is the recommended assay due to the diminished ? accuracy of immunoassay at levels below 250 ng/dL. ? This test code (20806) must be collected in a ? red-top tube with no gel. ? REPORT COMMENT: ? FASTING:NO Adrienne Singh MD CHEMISTRY ORDERABLES [facility] [address], [place] [address] * (ABNORMAL) CBC (with Diff) (07/01/2023 9:45 AM EDT) White Blood Cell 4.2 3.8 - 10.8 Thousand/ uL [facility] Red Blood Cell 4.18(L) 4.20 - 5.80 Million/u L [facility] Hemoglobin 13.8 13.2 - 17.1 g/dL [facility] Hematocrit 40.7 38.5 - 50.0 % [facility] Mean Cell Volume 97.4 80.0 - 100.0 fL [facility] Mean Cell Hemoglobin 33.0 27.0 - 33.0 pg [facility] Mean Cell Hemoglobin Concentration 33.9 32.0 - 36.0 g/dL [facility] RDW coefficient of variation 12.8 11.0 - 15.0 % [facility] Platelet 203 140 - 400 Thousand/ uL [facility] Mean Platelet Volume 10.8 7.5 - 12.5 fL [facility] Neutrophil Absolute (ANC) - Automated 2780 1500 - 7800 cells/uL [facility] Lymphocytes Abs 739(L) 850 - 3900 cells/uL [facility] Monocyte Abs 466 200 - 950 cells/uL [employer] [facility] [employer] Eosinophils Abs 193 15 - 500 cells/uL [employer] Baso Absolute 21 0 - 200 cells/uL [facility] Neutrophil % 66.2 % [employer] Lymph % 17.6 % [employer] [facility] Monocyte % 11.1 % [employer] [facility] Eos % 4.6 % [employer] [facility] Basophil % 0.5 % [employer] [facility] [employer] 07/01/2023 9:45 AM EDT 07/01/2023 9:48 AM EDT Adrienne Singh MD HEMATOLOGY ORDERABLE S [facility] [address], [place] [address] [facility] [address] [place] [address] * [facility] Result (07/01/2023 9:45 AM EDT) [facility] Result PSA, POST-PROST ATECTOMY [facility] Comment: Test performed by: [facility] [address] [place], [place] ??[address] Audit Intern: ??HAMZAH CANDELARIO MD,PHD,[place] 07/01/2023 9:45 AM EDT 07/01/2023 9:48 AM EDT Narrative [facility] - 07/11/2023 5:00 PM EDT Component ? [...] ? This test was performed using the [employer] DxI ? method. PSA, ICMA is not [...] MD POINT OF CARE TEST O RDERABLES [facility] [address] [place] [address] [address], [place] [address] [facility] [address] [place] [phone] * Comprehensive metabolic panel (non-fasting) (07/01/2023 9:45 AM EDT) Glucose Fasting 106 65 - 139 mg/dL [facility] Comment: ? Non-fasting reference interval Blood Urea Nitrogen 15 7 - 25 mg/dL [facility] Creatinine 0.70 0.70 - 1.22 mg/dL [facility] Est Glomerular Filtration Rate 93 > OR = 60 mL/min/1 .73m2 [facility] BUN/Cre Ratio SEE NOTE: 6 - 22 (calc) [facility] Comment: ?? Not Reported: BUN and Creatinine are within ?? reference range. ? Sodium 136 135 - 146 mmol/L [facility] Potassium 3.7 3.5 - 5.3 mmol/L [employer] [facility] [employer] Chloride 99 98 - 110 mmol/L [facility] Carbon Dioxide 29 20 - 32 mmol/L [facility] Calcium 9.1 8.6 - 10.3 mg/dL [facility] Protein, Total 6.1 6.1 - 8.1 g/dL [facility] Albumin 4.0 3.6 - 5.1 g/dL [facility] Globulin 2.1 1.9 - 3.7 g/dL (calc) [facility] Alb/Globulin Ratio 1.9 1.0 - 2.5 (calc) [facility] Bilirubin, Total 0.5 0.2 - 1.2 mg/dL [facility] Alkaline Phosphatase 42 35 - 144 U/L [facility] Aspartate Aminotransferase 20 10 - 35 U/L [facility] Alanine Aminotransferase 24 9 - 46 U/L [facility] 07/01/2023 9:45 AM EDT 07/01/2023 9:48 AM EDT Adrienne Singh MD CHEMISTRY ORDERABLES [facility] [address], [place] [address] [facility] [address] [place] [address] documented in this encounter Visit Diagnoses Not on filedocumented in this encounter Care Teams Clinical Veterinarian Relationship Specialty Start Date End Date Jez Vance MD [address] [place] [address] PCP - General 01/07/10 documented as of this encounter
--- OUTSIDE RECORDS SUMMARY | 2023-12-17 01:47 | XMS_ITS | Encounter Summary ---
Author Organization [facility] Address [facility] [place] [address] Care Team Providers Care Supervisor Harvesting Name Role Phone eJz Vance MD Primary Care Provider +1 -[phone] Encounter Details Date Type Department Care Team (Late st Contact Info) Description 06/25/2023 Orders Only Radiation Oncology at [address] [phone] Adrienne Singh PA [facility] DR [place] [address] Malignant neoplasm of prostate (Primary Dx); Androgen [...] Office Visit Hematology/Oncology at [address] [phone] Antonio Brownlee MD [facility] [place] [address] Fani Haskins APRN [address] [place] [address] DR HEMATOLOGY [place] [address] 12/17/2023 9:00 AM EDT Infusion Hematology Oncology at [address] [phone] 12/17/2023 10:00 AM EDT Clinical Support Hematology/Oncology at [address] [phone] Nadege Howell, PALLAVI [facility] DR [place] [address] 12/24/2023 10:40 AM EST Office Visit Cardiology at [address] [phone] Cory Sellers MD [facility] [place] [address] 12/30/2023 9:00 AM EST Office Visit Hematology/Oncology at [address] [phone] Antonio Brownlee MD [facility] [place] [address] Fani Haskins APRN [address] [place] [address] DR HEMATOLOGY AND ONCOLOGY [place], [place] [phone] 12/30/2023 9:30 AM EST Infusion Hematology Oncology at [address] [phone] 04/04/2024 9:45 AM EST TH Visit (TeleHealth) Radiation Oncology at [address] [phone] Adrienne Singh PA [facility] [place] [address] documented as of this encounter Visit Diagnoses Diagnosis Malignant neoplasm of prostate- Primary Androgen deprivation therapy Encounter for therapeutic drug monitoring S/P radiotherapy Convalescence following radiotherapy Malignant neoplasm of head of pancreas documented in this encounter Care Teams Supervisor Harvesting Relationship Specialty Start Date End Date Jez Vance MD [address] [place] [address] PCP - General 01/07/10 documented as of this encounter
--- OUTSIDE RECORDS SUMMARY | 2023-12-17 01:47 | XMS_ITS | Encounter Summary ---
Author Organization [facility] Address One [facility] [place] [address] Care Team Providers Care Manager Engine Name Role Phone Jez Vance MD Primary Care Provider +1 [phone] Encounter Details Date Type Department Care Team [...] AM EDT Office Visit Hematology/Oncology at [address] [phone] Antonio Brownlee MD [facility] [place] [address] Fani Haskins APRN [address] [place] [address] DR HEMATOLOGY AND ONCOLOGY [place], [place] [phone] 12/17/2023 9:00 AM EDT Infusion Hematology Oncology at [address] [phone] 12/17/2023 10:00 AM EDT Clinical Support Hematology/Oncology at [address] [phone] [facility] DR HEMATOLOGY [place] [address] 12/24/2023 10:40 AM EST Office Visit Cardiology at [address] [phone] Cory Sellers MD [facility] [address] 12/30/2023 9:00 AM EST Office Visit Hematology/Oncology at [address] [phone] Antonio Brownlee MD [facility] [place] [address] Fani Haskins APRN [address] [place] [address] DR HEMATOLOGY [place] [address] 12/30/2023 9:30 AM EST Infusion Hematology Oncology at [address] [phone] 04/04/2024 9:45 AM EST TH Visit (TeleHealth) Radiation Oncology at [address] [phone] Adrienne Singh PA [facility] DR HEMATOLOGY [place] [address] documented as of this encounter Visit Diagnoses Not on filedocumented in this encounter Care Teams Manager Engine Relationship Specialty Start Date End Date Jez Vance MD [address] [place] [address] PCP - General 01/07/10 documented as of this encounter
--- OUTSIDE RECORDS SUMMARY | 2023-12-17 01:47 | XMS_ITS | Encounter Summary ---
Author Organization [facility] Address [facility] [place] [address] Care Team Providers Care Hose Inspector And Patcher Name Role Phone Jez Vance MD Primary Care Provider +1 -[phone] Encounter Details Date Type Department Care Team (Late st Contact Info) Description 07/22/2023 1:00 PM EDT Office Visit Radiation Oncology at [address] [phone] Adrienne Singh PA [facility] DR [place] [address] Malignant neoplasm of prostate (Primary Dx); S/P [...] Singh PA - 07/22/2023 1:00 PM EDT [facility] [place] [address] FOLLOW-UP: Patient: Benny Zurita : 1940 PCP: Jez Vance MD ([place]); Troy Arce MD ([place], [place]; [phone]) Urologist: Gordo Kaplan MD ([facility], [place], [place]) Radiation Oncologist: Toro Hayes MD (Consult Date: 08/06/22) Chief Complaint: Follow-up for high-risk prostate cancer (Stage IIC: cT1c, cN0, cM0; [place] 4+4, PSA 11.9) HPI: Date of Diagnosis [...] 0/10 Fatigue/Activity Level: Spends the winter in [place], got back 3 weeks ago. Usually has [...] received Lupron 45 mg on 06/11/23 in [place], so his next dose is due on [...] 22.5 mg dose = last injection) Labs ([facility]): PSA, Testosterone, CBC, CMP Imaging Due ([facility]): DXA scan before next appointment Benny [...] 8:30 AM EDT Office Visit Hematology/Oncology at [address] [phone] Antonio Brownlee MD [facility] [place] [address] HEMATOLOGY AND ONCOLOGY [place], [place] [address] 12/17/2023 9:00 AM EDT Infusion Hematology Oncology at [address] [phone] 12/17/2023 10:00 AM EDT Clinical Support Hematology/Oncology at [address] [phone] [facility] DR [place] [address] 12/24/2023 10:40 AM EST Office Visit Cardiology at [address] [phone] Cory Sellers MD [facility] [place] [address] 12/30/2023 9:00 AM EST Office Visit Hematology/Oncology at [address] [phone] Antonio Brownlee MD [facility] [place] [address] Fani Haskins [address] HEMATOLOGY AND ONCOLOGY [place], [place] [phone] 12/30/2023 9:30 AM EST Infusion Hematology Oncology at [address] [phone] 04/04/2024 9:45 AM EST TH Visit (TeleHealth) Radiation Oncology at [address] [phone] Adrienne Singh PA [facility] DR [place] [address] Scheduled Orders Name Type Priority Associated Diagnoses [...] pancreas documented in this encounter Care Teams Hose Inspector And Patcher Relationship Specialty Start Date End Date Jez Vance MD [address] [place] [address] PCP - General 01/07/10 documented as of this encounter
--- OUTSIDE RECORDS SUMMARY | 2023-12-17 01:47 | XMS_ITS | Encounter Summary ---
Author Organization [facility] Address One [facility] [place] [address] Care Team Providers Care Size Maker Name Role Phone Jez Vance MD Primary Care Provider +1 -[phone] Encounter Details Date Type Department Care Team (Late st Contact Info) Description 10/21/2023 Interpretation Only [address] [phone] Jez Vance MD [address] [place] [address] Social History Tobacco Use Types Packs/Day Years [...] AM EDT Office Visit Hematology/Oncology at [address] [phone] Antonio Brownlee MD [facility] [place] [address] Fani Haskins APRN [address] [place] [address] DR HEMATOLOGY AND ONCOLOGY [place], [place] [phone] 12/17/2023 9:00 AM EDT Infusion Hematology Oncology at [address] [phone] 12/17/2023 10:00 AM EDT Clinical Support Hematology/Oncology at [address] [phone] [facility] DR HEMATOLOGY [place] [address] 12/24/2023 10:40 AM EST Office Visit Cardiology at [address] [phone] Cory Sellers MD [facility] [place] [address] 12/30/2023 9:00 AM EST Office Visit Hematology/Oncology at [address] [phone] Antonio Brownlee MD [facility] [place] [address] Fani Haskins, AGRICULTURAL PURCHASING AGENT [address] [place] [address] DR HEMATOLOGY AND ONCOLOGY [place], [place] [id number] 12/30/2023 9:30 AM EST Infusion Hematology Oncology at [address] [phone] 04/04/2024 9:45 AM EST TH Visit (TeleHealth) Radiation Oncology at [address] [phone] Adrienne Singh PA [facility] HEMATOLOGY [place] [address] documented as of this encounter Procedures Procedure Name Priority Date/Time Associated Diagnosis Comments US ABDOMEN LIMITED Routine 10/21/2023 9: 40 AM EDT documented in this encounter Results * US Abdomen Limited (10/21/2023 9:40 AM EDT) PT CLASS O RAD ADMITDTTM [id number] [facility] PT RAD INFO [id number]^Genere aux^Jez^H RAD EXAM DESC UABDLIM^US Abdomen Limited^RIS [facility] WORKSTATION ID [id number] RAD Anatomical Region Laterality [...] who have questions please contact the health hemodialysis patient care specialist that requested your imaging first. ? Electronically signed by: Milton Klein MD, [facility] ([phone]), at 10/21/2023 11:12 AM Narrative 10/21/2023 11:12 [...] patients who have questions please contactthe health hemodialysis patient care specialist that requested your imaging first. Electronically signed by: Milton Klein MD, [facility]([phone]), at 10/21/2023 11:12 AM Jez Vance MD IMG US GEN ORDERA BLES documented in this encounter Visit Diagnoses Not on filedocumented in this encounter Care Teams Size Maker Relationship Specialty Start Date End Date Jez Vance MD [address] [place] [address] PCP - General 01/07/10 documented as of this encounter
--- OUTSIDE RECORDS SUMMARY | 2023-12-17 01:47 | XMS_ITS | Encounter Summary ---
Author Organization [facility] Address One [facility] [place] [address] Care Team Providers Care Water Treatment Specialist Name Role Phone Jez Vance MD Primary Care Provider +1 -[phone] Encounter Details Date Type Department Care Team (Late st Contact Info) Description 12/23/2022 Telephone Radiation Oncology at [address] [phone] Kelly Buchanan Social History Tobacco [...] AM EDT Office Visit Hematology/Oncology at [address] [phone] Antonio Borwnlee MD [facility] [place] [address] Fani Haskins APRN [address] [place] [address] DR HEMATOLOGY [place] [address] 12/17/2023 9:00 AM EDT Infusion Hematology Oncology at [address] [phone] 12/17/2023 10:00 AM EDT Clinical Support Hematology/Oncology at [address] [phone] [facility] DR [place] [address] 12/24/2023 10:40 AM EST Office Visit Cardiology at [address] [phone] Cory Sellers MD [facility] [place] [address] 12/30/2023 9:00 AM EST Office Visit Hematology/Oncology at [address] [phone] Antonio Brownlee MD [facility] [place] [address] Fani Haskins APRN [address] [place] [address] DR HEMATOLOGY AND ONCOLOGY [place], [place] [phone] 12/30/2023 9:30 AM EST Infusion Hematology Oncology at [address] [phone] 04/04/2024 9:45 AM EST TH Visit (TeleHealth) Radiation Oncology at [address] [phone] Adrienne Singh PA [facility] DR [place] [address] documented as of this encounter Visit Diagnoses Not on filedocumented in this encounter Care Teams Water Treatment Specialist Relationship Specialty Start Date End Date Jez Vance MD [address] [place], [place] [address] PCP - General 01/07/10 documented as of this encounter
--- OUTSIDE RECORDS SUMMARY | 2023-12-17 01:47 | XMS_ITS | Encounter Summary ---
Author Organization [facility] Address [facility] [place] [address] Care Team Providers Care Firmware Engineer Name Role Phone Jez Vance MD Primary Care Provider +1 -[phone] Encounter Details Date Type Department Care Team (Late st Contact Info) Description 10/25/2023 Notes [place] [address] Patrizia Bassett Social History Tobacco Use Types Packs/Day Years Used Date Smoking Tobacco: Never Smokeless Tobacco: Never Alcohol Use Standard Drinks/Week Comments Yes 1 (1 standard drink = 0.6 oz pur e alcohol) social drinker once a month [facility] Utilities Answer Date Recorded In [...] PI: Kamari Esquivel MD MS Velos # [id number] Objective of visit: Patrizia Rogel , research coordinator, and Dr. Reynoso met with Benny Zurita in [facility] to provide information regarding protocol [id number], answer questions or concerns about study plan, [...] will continue to be screened on study [id number] to determine if patient meets criteria during [...] 8:30 AM EDT Office Visit Hematology/Oncology at [address] [phone] Antonio Brownlee MD [facility] [place] [address] Fani Haskins [address] HEMATOLOGY AND ONCOLOGY [place], [place] [phone] 12/17/2023 9:00 AM EDT Infusion Hematology Oncology at [address] [phone] 12/17/2023 10:00 AM EDT Clinical Support Hematology/Oncology at [address] [phone] [facility] DR [place]AT[place] [address] 12/24/2023 10:40 AM EST Office Visit Cardiology at [address] [phone] Cory Sellers MD [facility] [place] [address] 12/30/2023 9:00 AM EST Office Visit Hematology/Oncology at [address] [phone] Antonio Brownlee MD [facility] [place] [address] Fani Haskins [address] HEMATOLOGY AND ONCOLOGY [place], [place] [address] 12/30/2023 9:30 AM EST Infusion Hematology Oncology at [address] [phone] 04/04/2024 9:45 AM EST TH Visit (TeleHealth) Radiation Oncology at [address] [phone] Adrienne Singh PA [facility] DR HEMATOLOG[place] [address] documented as of this encounter Visit Diagnoses Not on filedocumented in this encounter Care Teams Firmware Engineer Relationship Specialty Start Date End Date Jez Vance MD [address] [place] [address] PCP - General 01/07/10 documented as of this encounter
--- OUTSIDE RECORDS SUMMARY | 2023-12-17 01:47 | XMS_ITS | Encounter Summary ---
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 [place] [address] [facility] Referral ID Status Reason Start Date Expiration Date Visits Re quested Visits Authorized [id number] 1 1 Encounter Details Date Type Department Care Team (Late st Contact Info) Description 10/25/2023 1:55 PM EDT Ancillary Procedure [place] [phone] Social History Tobacco Use Types Packs/Day Years Used Date Smoking Tobacco: Never Smokeless Tobacco: Never Alcohol Use Standard Drinks/Week Comments Yes 1 (1 standard drink = 0.6 oz pur e alcohol) social drinker once a month [facility] Utilities Answer Date Recorded In the past 12 months has [employer], gas, oil, or water company threatened to [...] in the past 12 m [facility], were you homeless or living in a halfway (including now)? No 10/25/2023 IPV Inpatient Questions [...] AM EDT Office Visit Hematology/Oncology at [address] [phone] Antonio Brownlee MD [facility] [place] [address] Fani Haskins, [address] HEMATOLOGY AND ONCOLOGY [place], [place] [address] 12/17/2023 9:00 AM EDT Infusion Hematology Oncology at [address] [phone] 12/17/2023 10:00 AM EDT Clinical Support Hematology/Oncology at [address] [phone] [facility] DR [place] [address] 12/24/2023 10:40 AM EST Office Visit Cardiology at [address] [phone] Cory Sellers MD [facility] [place] [address] 12/30/2023 9:00 AM EST Office Visit Hematology/Oncology at [address] [phone] Antonio Brownlee MD [facility] [place] [address] Fani Haskins, [address] HEMATOLOGY AND ONCOLOGY [place], [place] [address] 12/30/2023 9:30 AM EST Infusion Hematology Oncology at [address] [phone] 04/04/2024 9:45 AM EST TH Visit (TeleHealth) Radiation Oncology at [address] [phone] Adrienne Singh PA [facility] DR [place] [address] documented as of this encounter Procedures Procedure Name Priority Date/Time Associated Diagnosis Comments XR ERCP Routine 10/25/2023 4:40 PM EDT documented in this encounter Results * XR ERCP (10/25/2023 4:40 PM EDT) Narrative RAD - 10/25/2023 4:45 PM EDT See PACS for result report. Ros Gonázles MD IMG FILM LIBRARY ORD ERABLES [place], [place] documented in this encounter Visit Diagnoses Not on filedocumented in this encounter Care Teams City Carrier Relationship Specialty Start Date End Date Jze Vance MD [address] [place] [address] PCP - General 01/07/10 documented as of this encounter
--- OUTSIDE RECORDS SUMMARY | 2023-12-17 01:47 | XMS_ITS | Encounter Summary ---
Author Organization [facility] Address One [facility] [place] [address] Care Team Providers Care Oil Extractor Name Role Phone Jez Vance MD Primary Care Provider +1 -[phone] Encounter Details Date Type Department Care Team [...] AM EDT Office Visit Hematology/Oncology at [address] [phone] Antonio Brownlee MD [facility] [place] [address] Fani Haskins APRN [address] [place] [address] DR HEMATOLOGY AND ONCOLOGY [place], [place] [phone] 12/17/2023 9:00 AM EDT Infusion Hematology Oncology at [address] [phone] 12/17/2023 10:00 AM EDT Clinical Support Hematology/Oncology at [address] [phone] [facility] DR [place] [address] 12/24/2023 10:40 AM EST Office Visit Cardiology at [address] [phone] Cory Sellers MD [facility] [place] [address] 12/30/2023 9:00 AM EST Office Visit Hematology/Oncology at [address] [phone] Antonio Brownlee MD [facility] [place] [address] Fani Haskins APRN [address] [place] [address] DR [place] [address] 12/30/2023 9:30 AM EST Infusion Hematology Oncology at [address] [phone] 04/04/2024 9:45 AM EST TH Visit (TeleHealth) Radiation Oncology at [address] [phone] Adrienne Singh PA [facility] DR [place] [address] documented as of this encounter Visit Diagnoses Not on filedocumented in this encounter Care Teams Oil Extractor Relationship Specialty Start Date End Date Jez Vance MD [address] [place] [address] PCP - General 01/07/10 documented as of this encounter
--- OUTSIDE RECORDS SUMMARY | 2023-12-17 01:47 | XMS_ITS | Encounter Summary ---
Author Organization [facility] [place] [address] Care Team Providers Care Housekeeping Attendant Name Role Phone Jez Vance MD Primary Care Provider +1 -[phone] Reason for Visit * Auth/Cert (Routine) Specialty Diagnoses / Procedures Referred By Denea yao Referred To Contact Diagnoses Cholestatic liver disease Rj Rizvi MD [facility] [place] [address] [facility] Referral ID Status Reason Start Date Expiration Date Visits Re quested Visits Authorized [id number] 1 1 Encounter Details Date Type Department Care Team (Late st Contact Info) Description 10/25/2023 2:39 PM EDT Anesthesia [place] [address] Kenyatta Sarmiento MD [facility] [place] [address] Francisca Hernández MD [facility] [place] [address] Anesthesia Record Procedure Summary Procedure Name Responsible [...] Type Details Placement Removal PIV 10/23/23; 1235; [id number] catheter system; 18 gauge; median cubital vein [...] e alcohol) social drinker once a month [facility] Utilities Answer Date Recorded In [...] living in a chcf (including now)? No 10/25/2023 IPV Inpatient Questions [...] Procedure Summary Date: 10/25/23 Room / Location: [facility] ENDO 3 / [facility]OSCOPY Anesthesia Start: 1439 Anesthesia Stop: [...] All Anesthesia Providers: Anesthesiologist: Kenyatta Sarmiento MD REAL ESTATE ACQUISITION ANALYST: Pascale Zuniga CRNA Vitals Value Taken Time BP 118/63 10/25/23 1710 Temp Pulse Resp 16 10/25/23 1710 SpO2 98 % 10/25/23 1712 Pain Level 2 10/25/23 1720 Vitals shown include unfiled device data. Patient Location: PACU/[facility] Level of Consciousness: Awake and Alert Pain [...] with patient. Plan discussed with attending and REAL ESTATE ACQUISITION ANALYST. Anesthesia Screening documented in this encounter Plan of Treatment Upcoming Encounters Date Type Department Care Team (Late st Contact Info) Description 12/17/2023 8:30 AM EDT Office Visit Hematology/Oncology at [address] [phone] Antonio Brownlee MD [facility] [place] [address] Fani Haskins APRN [address] [place] [address] DR HEMATOLOGY AND ONCOLOGY [place], [place] [id number] 12/17/2023 9:00 AM EDT Infusion Hematology Oncology at [address] [phone] 12/17/2023 10:00 AM EDT Clinical Support Hematology/Oncology at [address] [phone] [facility] HEMATOLOGY [place] [address] 12/24/2023 10:40 AM EST Office Visit Cardiology at [address] [phone] Cory Sellers MD [facility] [place] [address] 12/30/2023 9:00 AM EST Office Visit Hematology/Oncology at [address] [phone] Antonio Brownlee MD [facility] [place] [address] Fani Haskins APRN [address] [place] [address] DR HEMATOLOGY AND ONCOLOGY [place], [place] [id number] 12/30/2023 9:30 AM EST Infusion Hematology Oncology at [address] [phone] 04/04/2024 9:45 AM EST TH Visit (TeleHealth) Radiation Oncology at [address] [phone] Adrienne Singh PA [facility] DR HEMATOLOGY [place] [address] documented as of this encounter Visit Diagnoses [...] mg documented in this encounter Care Teams Housekeeping Attendant Relationship Specialty Start Date End Date Jez Vance MD [address] [place] [address] PCP - General 01/07/10 documented as of this encounter
--- OUTSIDE RECORDS SUMMARY | 2023-12-17 01:47 | XMS_ITS | Encounter Summary ---
Author Organization [facility] [place] [address] Care Team Providers Care Rehabilitation Services Counselor Name Role Phone Jez Vance MD Primary Care Provider [phone] Reason for Visit * Reason Comments Jaundice * Auth/Cert (Routine) Specialty Diagnoses / Procedures Referred By Deena yao Referred To Contact Diagnoses Cholestatic liver disease Rj Rizvi MD [facility] [place] [address] [facility] Referral ID Status Reason Start Date Expiration Date Visits Re quested Visits Authorized [id number] 1 1 Encounter Details Date Type Department Care Team (Late st Contact Info) Description 10/25/2023 1:53 PM EDT - 10/25/2023 3:08 PM EDT [place] [address] Andrew Reynoso MD [facility] [place] [address] UPPER EUS- ENDOSCOPIC ULTRASOUND (WRVU 3.47) Social History Tobacco Use Types Packs/Day Years Used Date Smoking Tobacco: Never Smokeless Tobacco: Never Alcohol Use Standard Drinks/Week Comments Yes 1 (1 standard drink = 0.6 oz pur e alcohol) social drinker once a month [facility] Utilities Answer Date Recorded In the past 12 months has th e electric, gas, oil, or water [employer] threatened to shut off services in your [...] living in a correction (including now)? No 10/25/2023 DH IPV Inpatient [...] so he presented to the ED at [facility]. In the ED, found to have hypokalemia (2.9), mild normocytic anemia (13.1), normal renal function, markedly elevated bilirubin (8.6), elevated LFT's (AST 258 / ALT 577). GI consulted by the ED and medicine paged for admission. Patient lives with his , split between here and [place]. 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 Rare EtOH. Nonsmoker. No [...] oncology team had reached out to the [facility] ([facility]) New Patient schedulers to keep an [...] 10/23/2023 1:10 PM) Result Value WORKSTATION ID [id number] Impression 1. Hypodense pancreatic head mass concerning [...] who have questions please contact the health lead caregiver that requested your imaging first. Electronically signed by: Davy Sinclair MD, [facility] ([phone]), at 10/23/2023 1:[address] Chest w Contrast (Exam End: 10/24/2023 1:41 PM) Result Value WORKSTATION ID [id number] Impression No metastatic disease in the chest. Thank you for letting us participate in the care of this patient. If you are a health care provider and have any questions regarding this report, please contact the number below. For patients who have questions please contact the health lead caregiver that requested your imaging first. Electronically signed by: Mariam Johnson MD, [facility] ([phone]), at 10/24/2023 5:21 PM Discharge Conditions/Prognosis: Stable; [...] oncology team had reached out to the [facility] ([facility]) New Patient schedulers to keep an [...] AM Adrienne Singh PA [facility] [place] [facility] 11/30/2023 9:45 AM Adrienne Singh PA [facility] [place] [facility] 11/30/2023 10:30 AM [facility] INFUSION, ROOM [facility] [place] [facility] Your Inpatient Doctor: Ros Gonzáles MD Your Primary Care Provider: Jez Vance MD [phone] For questions regarding this document or issues relating to this hospitalization on the Medical Service, please contact your inpatient physician through the [facility] Crystal Grower . Issues afterhours and on weekends will [...] the day after the procedure, use an qghc-txk-ledntmf spray to numb your throat. Sucking on [...] occurs, please contact your Doctor. Please call [phone] before 8pm Mon-Fri with problems, questions or concerns. If you call after 8pm or on weekends, call the Hospital at [phone] and ask to speak to the Milling Machine Tender substation operator transforming and the serging machine operator automatic will contact that person for you. When [...] problems, like Where can you learn more? [facility] View your After Visit Summary and more online at [email or web address] If you would like to provide feedback about your hospital experience, please call the Office of Patient and Family Relations at . If you have received this After Visit Summary in error, please immediately return it in person to the department, or notify the [facility] Privacy Office by calling toll free at between the hours of 8AM and 5PM to arrange for our retrieval of the documents at no cost to you. Content Version: 12.2 ?? 0829-0370 [email or web address]. Care instructions adapted under license by [facility]. If you have questions about a medical condition or this instruction, always ask your healthcare professional. [email or web address] disclaims any warranty or liability for your [...] the day after the procedure, use an hfdt-zpv-mexksmt spray to numb your throat. Sucking on [...] occurs, please contact your Doctor. Please call [phone] before 8pm Mon-Fri with problems, questions or concerns. If you call after 8pm or on weekends, call the Hospital at [phone] and ask to speak to the Milling Machine Tender substation operator transforming and the serging machine operator automatic will contact that person for you. When [...] any problems. Where can you learn more? [facility] View your After Visit Summary and more online at [email or web address] If you would like to provide feedback about your hospital experience, please call the Office of Patient and Family Relations at . If you have received this After Visit Summary in error, please immediately return it in person to the department, or notify the [facility] Privacy Office by calling toll free at between the hours of 8AM and 5PM to arrange for our retrieval of the documents at no cost to you. Content Version: 12.2 ?? 7990-4722 [email or web address]. Care instructions adapted under license by [facility]. If you have questions about a medical condition or this instruction, always ask your healthcare professional. [email or web address] disclaims any warranty or liability for your [...] the day after the procedure, use an gosu-dmp-bcwjnxh spray to numb your throat. Sucking on [...] occurs, please contact your Doctor. Please call [phone] before 8pm Mon-Fri with problems, questions or concerns. If you call after 8pm or on weekends, call the Hospital at [phone] and ask to speak to the Milling Machine Tender substation operator transforming and the serging machine operator automatic will contact that person for you. When [...] any problems. Where can you learn more? [facility] View your After Visit Summary and more online at [email or web address] If you would like to provide feedback about your hospital experience, please call the Office of Patient and Family Relations at . If you have received this After Visit Summary in error, please immediately return it in person to the department, or notify the [facility] Privacy Office by calling toll free at between the hours of 8AM and 5PM to arrange for our retrieval of the documents at no cost to you. Content Version: 12.2 ?? 0439-8626 [email or web address]. Care instructions adapted under license by [facility]. If you have questions about a medical condition or this instruction, always ask your healthcare professional. [email or web address] disclaims any warranty or liability for your use of this information. Future Appointments and Orders Future Appointments and Orders Future Appointments Provider Department Dept Phone 11/02/2023 10:30 AM Adrienne Singh PA Radiation Oncology at [facility] Arrive at: Home [phone] 11/30/2023 9:45 AM Adrienne Singh PA Radiation Oncology at [facility] Arrive at: Home [phone] 11/30/2023 10:30 AM [facility] INFUSION, ROOM Hematology Oncology at [facility] Arrive at: [facility] door at end of hallway [phone] Future Orders Complete By Expires Referral to Gastroenterology [REF25 Custom] As directed Process Instructions: If requesting a colonoscopy please use OIB509 AMB REFERRAL TO COLONOSCOPY PROCEDURE. This referral request is for evaluation and treatment of gastrointestinal health concerns. Scheduling Instructions: Questions: My question or request is: Status post ERCP and EUS for pancreatic cancer Referral to Gastroenterology [REF25 Custom] As directed Process Instructions: If requesting a colonoscopy please use [id number] AMB REFERRAL TO COLONOSCOPY PROCEDURE. This referral [...] cancer Provider Contact Information: Jez Vance MD [place] [address] [address] [facility] [place] [id number] Discharge References/Attachments: Discharge References/Attachments None documented in [...] having any problems. If you stay in thespital overnight, you may go home the next [...] the day after the procedure, use an pcud-ipf-kunxiph spray to numb your throat. Sucking on [...] occurs, please contact your Doctor. Please call [phone] before 8pm Mon-Fri with problems, questions or concerns. If you call after 8pm or on weekends, call the Hospital at [phone] and ask to speak to the Milling Machine Tender substation operator transforming and the serging machine operator automatic will contact that person for you. When [...] problems, like Where can you learn more? [facility] View your After Visit Summary and more online at [email or web address] If you would like to provide feedback about your hospital experience, please call the Office of Patient and Family Relations at . If you have received this After Visit Summary in error, please immediately return it in person to the department, or notify the [facility] Privacy Office by calling toll free at between the hours of 8AM and 5PM to arrange for our retrieval of the documents at no cost to you. Content Version: 12.2 ?? 2378-8538 [email or web address]. Care instructions adapted under license by [facility]. If you have questions about a medical condition or this instruction, always ask your healthcare professional. [employer] disclaims any warranty or liability for your [...] the day after the procedure, use an yjar-hxc-dqkvqtu spray to numb your throat. Sucking on [...] occurs, please contact your Doctor. Please call [phone] before 8pm Mon-Fri with problems, questions or concerns. If you call after 8pm or on weekends, call the Hospital at [phone] and ask to speak to the Milling Machine Tender substation operator transforming and the serging machine operator automatic will contact that person for you. When should you call for help? Call [phone] anytime you think you may need emergency [...] any problems. Where can you learn more? [facility] View your After Visit Summary and more online at [email or web address] If you would like to provide feedback about your hospital experience, please call the Office of Patient and Family Relations at . If you have received this After Visit Summary in error, please immediately return it in person to the department, or notify the [facility] Privacy Office by calling toll free at between the hours of 8AM and 5PM to arrange for our retrieval of the documents at no cost to you. Content Version: 12.2 ?? 4480-3297 [email or web address]. Care instructions adapted under license by [facility]. If you have questions about a medical condition or this instruction, always ask your healthcare professional. [employer] disclaims any warranty or liability for your [...] the day after the procedure, use an sjvk-ktp-sdtnuoi spray to numb your throat. Sucking on [...] occurs, please contact your Doctor. Please call [phone] before 8pm Mon-Fri with problems, questions or concerns. If you call after 8pm or on weekends, call the Hospital at [phone] and ask to speak to the Milling Machine Tender substation operator transforming and the serging machine operator automatic will contact that person for you. When should you call for help? Call [phone] anytime you think you may need emergency [...] any problems. Where can you learn more? [facility] View your After Visit Summary and more online at [email or web address] If you would like to provide feedback about your hospital experience, please call the Office of Patient and Family Relations at . If you have received this After Visit Summary in error, please immediately return it in person to the department, or notify the [facility] Privacy Office by calling toll free at between the hours of 8AM and 5PM to arrange for our retrieval of the documents at no cost to you. Content Version: 12.2 ?? 1441-0042 [email or web address]. Care instructions adapted under license by [facility]. If you have questions about a medical condition or this instruction, always ask your healthcare professional. [email or web address] disclaims any warranty or liability for your [...] oncology team had reached out to the [facility] ([facility]) New Patient schedulers to keep an [...] AM Adrienne Singh PA [facility] 11/30/2023 9:45 AM Adrienne Singh PA [facility] [place] [facility] 11/30/2023 10:30 AM [facility] INFUSION, ROOM [facility] [place] [facility] Your Inpatient Doctor: Ros Gonzáles MD Your Primary Care Provider: Jez Vance MD [phone] For questions regarding this document or issues relating to this hospitalization on the Medical Service, please contact your inpatient physician through the [facility] Crystal Grower . Issues afterhours and on weekends will [...] out of the unit by a unit DRIER OPERATOR HEAD. Pt is discharged to his home and [...] spent >30 minutes (Day of Discharge Code 81320) involved in the final examination of the [...] General Information Benny Zurita 1940 Medicare Number: [id number] Transport Date: 10/26/2023 (PCS is valid for round trips on this date and for all repetitive trips in the 60-day range as noted below.) Origin: [address] Destination: [facility] Is the patient's stay covered under [...] van (i.e. seated during transport, without medical director of hospice or monitoring?): No 4) In addition to [...] QRS widening ( R in aVL , [place] product ) Possible Lateral infarct , age [...] minimumof two midnights or is on the [facility] inpatient only procedure list (status C) due to: severe hypokalemia and pancreatic mass requiring EUS/ERCP Team Pager(MD Coverage 07/09): #[phone] PCP: Jez Vance MD [phone] Ros Gonzáles MD 10/26/2023 * Vanesa Vance [...] CHEM: Recent Labs 10/25/23 0353 10/24/23 1617 10/24/23 04110/23/23 1627 10/23/23 1232 CREATININE 0.70* 0.68* 0.80 [...] who have questions please contact the health lead caregiver that requested your imaging first. Electronically signed by: Mariam Johnson MD, [facility] ([phone]), at 10/24/2023 5:[address] Abdomen & [...] who have questions please contact the health lead caregiver that requested your imaging first. Electronically signed by: Davy Sinclair MD, [facility] ([phone]), at 10/23/2023 1:26 PM ENDOSCOPY: Reports and [...] minimumof two midnights or is on the [facility] inpatient only procedure list (status C) due to: severe hypokalemia and pancreatic mass requiring EUS/ERCP Team Pager(MD Coverage 07/09): #[phone] PCP: Jez Vance MD [phone] Ros Gonzáles MD 10/25/2023 * Alethea Barnes [...] encounter: 84.8 kg (186 lb 15.2 oz). [place] Body Weight (IBW) (kg): 74.09 Usual Body [...] pt reported 14-23# loss and poor po HOSPITAL ACCOUNT LIAISON. Contact Center Assistant met with Benny at bedside (pt's on phone during visit). Benny says that he has had a smaller appetiteand is eating ~50% of his normal sized meals (unable to provide daily intake). He still eats 3 meals per day and some snacks. Contact Center Assistant encouraged 5-6 small meals per day to [...] maxillary line): None present Lean Muscle Loss [place] region (temporalis muscle): None present Clavicle bone [...] -- 61 18 122/54 98 % -- 09/07/24 1848 -- -- 70 17 115/68 97 [...] QRS widening ( R in aVL , [place] product ) Possible Lateral infarct , age [...] minimumof two midnights or is on the [facility] inpatient only procedure list (status C) due to: severe hypokalemia Team Pager(MD Coverage 07/09): #[phone] PCP: Jez Vance MD [phone] Rj Rizvi MD 10/24/2023 * Vanesa Vance [...] documented in this encounter H&P Notes * Feilcity Potts MD - 10/25/2023 5:51 AM EDT [...] Note CC/ID: 83 y.o. Male presents to [facility] with fatigue and nausea Subjective History of [...] so he presented to the ED at [facility]. In the ED, found to have hypokalemia [...] Immunizations given as needed. Rj Rizvi MD [facility] Pager [phone] documented in this encounter ED Notes * [...] to room independently and reconnected to [facility]. Denies any further needs or concerns at [...] 0 - 60 unit/L Type and screen ([facility]/ANDRE/FREDY) Result Value Ref Range ABORH Type O POSITIVE PATIENT HISTORY Not Found Expires at 4635 on: 10-26-2023 ANTIBODY SCREEN AUTOMATED Negative T&S only valid at [facility] LAB CBC (with Diff) Result Value Ref [...] who have questions please contact the health lead caregiver that requested your imaging first. Electronically signed by: Davy Sinclair MD, [facility] ([phone]), at 10/23/2023 1:26 PM Procedures Assessment and [...] GI. Planfor admission. [facility] Hudson Walker MD Resident 10/23/231855 [...] Type: *No Product type* / Secondary Insurance: [place] [employer] Prescription Coverage: Yes This plan was formulated [...] Type: *No Product type* / Secondary Insurance: [place] [employer] Plan for discharge is: Home w/o Services [...] Intervention: Provide Person-Centered Care Flowsheets (Taken 10/25/2023 8027 by Bharat, Kelly L, RN) Trust Relationship/Rapport: care explained choices provided [...] ( spouse) would be surrogatedecision maker per [place] surrogate decision making law. (Only good for 180 days) Any patient receiving care in [place] must abide by [place] law. The hierarchy for surrogate decision making [...] (i) The agent with financial power of claims attorney or a conservator appointed in accordance [...] homeless or living in a correction (including now)?: No In the past 12 months has the electric, gas, oil, or water April[employer] threatened to shut off services in your [...] living?: No Current DME: skyler hernandez - standard Home Address confirmed as: [address] [address] Social & Family Supports: All names listed below confirmed with patient as current and correct Extended Emergency Contact Information Primary Emergency Contact: Angela Zurita Address: [address] [place] [address] [facility] Mobile Relation: Spouse Secondary Emergency Contact: Tiera Washington Address: [address] [place] [address] [facility] Mobile Relation: Child Current Care [...] Type: *No Product type* / Secondary Insurance: [facility] ONLY if patient has Medicare A&B - Does this patient have secondary insurance?: Yes ; Prescription Coverage: Yes Preferred Pharmacy: [address] [address] Status: Patient is a : No Primary Care Provider confirmed: Jez Vance MD [phone] Patient/Caregiver Goals of Treatment: return to home [...] who have questions please contact the health lead caregiver that requested your imaging first. Electronically signed by: Davy Sinclair MD, [facility] ([phone]), at 10/23/2023 1:26 PM ENDOSCOPY: Reports and [...] AM EDT Office Visit Hematology/Oncology at [address] [phone] Antonio Brownlee MD [facility] [place] [address] Fani Haskins APRN [address] [place] [address] [place] [address] 12/17/2023 9:00 AM EDT Infusion Hematology Oncology at [address] [phone] 12/17/2023 10:00 AM EDT Clinical Support Hematology/Oncology at [address] [phone] [facility] DR [place] [address] 12/24/2023 10:40 AM EST Office Visit Cardiology at [address] [phone] Cory Sellers MD [facility] [place] [address] 12/30/2023 9:00 AM EST Office Visit Hematology/Oncology at [address] [phone] Antonio Brownlee MD [facility] [place] [address] Fani Haskins [address] HEMATOLOGY AND ONCOLOGY [place], [place] [address] 12/30/2023 9:30 AM EST Infusion Hematology Oncology at [address] [phone] 04/04/2024 9:45 AM EST TH Visit (TeleHealth) Radiation Oncology at [address] [phone] Adrienne Singh PA [facility] [place] [address] Scheduled Referrals Name Type Priority Associated Diagnoses [...] EDT Ercp Stent Placement Biliary Or Pancreatic Duct(10880) 10/25/2023 2:37 PM EDT pancreas head mass CHOLANGIOGRAM 10/25/2023 2:37 PM EDT pancreas head mass Ercp Balloon Dilatation Biliary/Pancreatic Duct Or Ampulla Ea Duct (90289) 10/25/2023 2:37 PM EDT pancreas head mass Ercp, Sphincterotomy (92229) 10/25/2023 2:37 PM EDT pancreas head mass Upgi Endoscopy W/Us Fn Bx (01392) 10/25/2023 2:37 PM EDT pancreas head mass Ercp, Diagnostic (77332) 10/25/2023 2:37 PM EDT pancreas head mass Endoscopic Us Exam, Esoph (67563) 10/25/2023 2:37 PM EDT pancreas head mass [...] - 199 mg/dL 10/27/2023 5:56 AM T [facility] Comment:Glucose Concentratio n >=200 mg/dL plus symptoms is consistent with Diabetes Mellitus. Blood Urea Nitrogen 12 10 - 20 mg/dL 10/27/2023 5:[address] [facility] Creatinine 0.53(L) 0.80 - 1.50 mg/dL 10/27/2023 5:[address] [facility] Sodium 131(L) 135 - 145 mMol/L 10/27/2023 5:[address] [facility] Potassium 3.5 3.5 - 5.0 mMol/L 10/27/2023 5:[address] [facility] Chloride 95(L) 98 - 107 mMol/L 10/27/2023 5:[address] [facility] Carbon Dioxide 22 22 - 31 mMol/L 10/27/2023 5:[facility] Anion Gap 14 5 - 15 mMol/L 10/27/2023 5:[address] [facility] Calcium 8.4(L) 8.5 - 10.5 mg/dL 10/27/2023 5:56 [facility] Protein, Total 6.2 6.1 - 8.0 g/dL 10/27/2023 5:56 [facility] Albumin 3.5 3.2 - 5.2 g/dL 10/27/2023 5:56 [facility] Aspartate Aminotransferase 73(H) <=39 unit/L 10/27/2023 5:56 AM EDT [facility] Alanine Aminotransferase 291(H) 0 - 55 unit/L 10/27/2023 5:56 AM EDT [facility] Alkaline Phosphatase 329(H) 40 - 130 unit/L 10/27/2023 5:56 AM EDT [facility] Bilirubin, Total 2.8(H) <=1.3 mg/dL 10/27/2023 5:56 AM EDT [facility] Est Glomerular Filtration Rate - Male 101 mL/min/1. 73 m?? 10/27/2023 5:56 AM EDT [facility] Comment: This patient's estimated [...] AM EDT Ros Gonzáles MD CHEMISTRY ORDERABLES [facility] [place] [address] * (ABNORMAL) Magnesium (10/27/2023 3:35 AM EDT) Magnesium 0.63(L) 0.69 - 1.07 mMol/L 10/27/2023 5:56 AM EDT [facility] Blood VENOUS BLOOD SPECIMEN / Unknown IP Care Team Draw / Unknown 10/27/2023 3:35 AM EDT 10/27/2023 3:47 AM EDT Ros Gonzáles MD CHEMISTRY ORDERABLES [facility] [place] [address] * (ABNORMAL) Phosphorus (10/27/2023 3:35 AM EDT) Pathologist [facility] Phosphorus 2.4(L) 2.5 - 4.5 mg/dL 10/27/2023 5:56 AM EDT [facility] Blood VENOUS BLOOD SPECIMEN / Unknown IP Care Team Draw / Unknown 10/27/2023 3:35 AM EDT 10/27/2023 3:47 AM EDT Ros Gonzáles MD CHEMISTRY ORDERABLES Performing Organization Address City/[facility]/ZIP Co de Phone Number [facility] [place] [address] * (ABNORMAL) CBC (with Diff) (10/27/2023 3:35 AM EDT) [facility] White Blood Cell 9.79(H) 4.00 - 9.50 x10(3)/mc L 10/27/2023 3:54 AM EDT [facility] Red Blood Cell 3.65(L) 4.58 - 5.54 x10(6)/mc L 10/27/2023 3:54 AM EDT [facility] Hemoglobin 11.9(L) 13.7 - 16.5 g/dL 10/27/2023 3:54 AM EDT [facility] Hematocrit 34.1(L) 40.5 - 48.5 % 10/27/2023 3:54 AM EDT [facility] Mean Cell Volume 93.4(H) 82.9 - 93.1 fL 10/27/2023 3:54 AM EDT [facility] Mean Cell Hemoglobin 32.6(H) 27.5 - 32.1 pg 10/27/2023 3:54 AM EDT [facility] Mean Cell Hemoglobin Concentration 34.9 32.0 - 35.7 g/dL 10/27/2023 3:[address] [facility] Platelet 196 145 - 357 x10(3)/mc L 10/27/2023 3:[address] [facility] Mean Platelet Volume 12.0 7.6 - 12.9 fL 10/27/2023 3:[address] [facility] RDW Standard Deviation 47.1(H) 36.0 - 45.0 fL 10/27/2023 3:[address] [facility] RDW coefficient of variation 13.9(H) 11.4 - 13.8 % 10/27/2023 3:[address] [facility] NRBC% auto 0.0 % 10/27/2023 3:[address] [facility] NRBC Absolute 0.00 0.00 - 0.00 x10(3)/mc L 10/27/2023 3:[address] [facility] Neutrophil % 80.7 % 10/27/2023 3:[address] [facility] Neutrophil Absolute (ANC) - Automated 7.90(H) 1.70 - 6.10 x10(3)/mc L 10/27/2023 3:[address] [facility] Lymph % 8.3 % 10/27/2023 3:[address] [facility] Lymph Absolute 0.81(L) 0.90 - 3.20 x10(3)/mc L 10/27/2023 3:[address] [facility] Monocyte % 9.3 % 10/27/2023 3:[address] [facility] Monocyte Absolute 0.91(H) 0.30 - 0.90 x10(3)/mc L 10/27/2023 3:[address] [facility] Eos % 0.8 % 10/27/2023 3:[address] [facility] Eos Absolute 0.08 0.00 - 0.40 x10(3)/mc L 10/27/2023 3:54 AM EDT [facility] Basophil % 0.3 % 10/27/2023 3:54 AM EDT [facility] Baso Absolute 0.03 0.00 - 0.10 x10(3)/mc L 10/27/2023 3:54 AM EDT [facility] Immature Gran % 0.6 % 3:54 AM EDT [facility] Immature Gran Absolute 0.06(H) 0.00 - 0.04 x10(3)/mc L 10/27/2023 3:54 AM EDT [facility] Blood VENOUS BLOOD SPECIMEN / Unknown IP Care Team Draw / Unknown 10/27/2023 3:35 AM EDT 10/27/2023 3:47 AM EDT Ros Gonzáles MD HEMATOLOGY ORDERABLE S [facility] [place] [address] * (ABNORMAL) Comprehensive metabolic panel (10/26/2023 4:00 AM EDT) Glucose 136 65 - 199 mg/dL 10/26/2023 4:45 AM EDT [facility] Comment:Glucose Concentratio n >=200 mg/dL plus symptoms is consistent with Diabetes Mellitus. Blood Urea Nitrogen 19 10 - 20 mg/dL 10/26/2023 4:45 AM EDT [facility] Creatinine 0.69(L) 0.80 - 1.50 mg/dL 10/26/2023 4:45 AM EDT [facility] Sodium 131(L) 135 - 145 mMol/L 10/26/2023 4:45 AM EDT [facility] Potassium 3.6 3.5 - 5.0 mMol/L 10/26/2023 4:45 AM EDT [facility] Chloride 94(L) 98 - 107 mMol/L 10/26/2023 4:[address] [facility] Carbon Dioxide 24 22 - 31 mMol/L 10/26/2023 4:[address] [facility] Anion Gap 13 5 - 15 mMol/L 10/26/2023 4:[address] [facility] Calcium 8.7 8.5 - 10.5 mg/dL 10/26/2023 4:[address] [facility] Protein, Total 6.2 6.1 - 8.0 g/dL 10/26/2023 4:[address] [facility] Albumin 3.4 3.2 - 5.2 g/dL 10/26/2023 4:[address] [facility] Aspartate Aminotransferase 132(H) <=39 unit/L 10/26/2023 4:[address] [facility] Alanine Aminotransferase 400(H) 0 - 55 unit/L 10/26/2023 4:[address] [facility] Alkaline Phosphatase 384(H) 40 - 130 unit/L 10/26/2023 4:[address] [facility] Bilirubin, Total 3.6(H) <=1.3 mg/dL 10/26/2023 4:[address] [facility] Est Glomerular Filtration Rate - Male 93 mL/min/1. 73 m?? 10/26/2023 4:[address] [facility] Comment: This patient's [...] Gonzáles MD CHEMISTRY ORDERABLES Performing Organization Address City/[facility]/ZIP Co de Phone Number [facility] [place] [address] * (ABNORMAL) Magnesium (10/26/2023 4:00 AM EDT) Magnesium 0.65(L) 0.69 - 1.07 mMol/L 10/26/2023 4:45 AM EDT [facility] Blood VENOUS BLOOD SPECIMEN / Unknown IP Care Team Draw / Unknown 10/26/2023 4:00 AM EDT 10/26/2023 4:12 AM EDT Ros Gonzáles MD CHEMISTRY ORDERABLES Performing Organization Address [facility] Co de Phone Number [facility] [place] [address] * Phosphorus (10/26/2023 4:00 AM EDT) Pathologist [facility] Phosphorus 3.1 2.5 - 4.5 mg/dL 10/26/2023 4:45 AM EDT [facility] Blood VENOUS BLOOD SPECIMEN / Unknown IP Care Team Draw / Unknown 10/26/2023 4:00 AM EDT 10/26/2023 4:12 AM EDT Ros Gonzáles MD CHEMISTRY ORDERABLES Performing Organization Address City/[facility]/ZIP Co de Phone Number [facility] [place] [address] * (ABNORMAL) CBC (with Diff) (10/26/2023 4:00 AM EDT) White Blood Cell 7.51 4.00 - 9.50 x10(3)/mc L 10/26/2023 4:47 AM EDT [facility] Red Blood Cell 3.79(L) 4.58 - 5.54 x10(6)/mc L 10/26/2023 4:[address] [facility] Hemoglobin 12.2(L) 13.7 - 16.5 g/dL 10/26/2023 4:[address] [facility] Hematocrit 35.2(L) 40.5 - 48.5 % 10/26/2023 4:[address] [facility] Mean Cell Volume 92.9 82.9 - 93.1 fL 10/26/2023 4:[address] [facility] Mean Cell Hemoglobin 32.2(H) 27.5 - 32.1 pg 10/26/2023 4:[address] [facility] Mean Cell Hemoglobin Concentration 34.7 32.0 - 35.7 g/dL 10/26/2023 4:[address] [facility] Platelet 210 145 - 357 x10(3)/mc L 10/26/2023 4:[address] [facility] Mean Platelet Volume 11.7 7.6 - 12.9 fL 10/26/2023 4:[address] [facility] RDW Standard Deviation 48.8(H) 36.0 - 45.0 fL 10/26/2023 4:[address] [facility] RDW coefficient of variation 14.3(H) 11.4 - 13.8 % 10/26/2023 4:[address] [facility] NRBC% auto 0.0 % 10/26/2023 4:[address] [facility] NRBC Absolute 0.00 0.00 - 0.00 x10(3)/mc L 10/26/2023 4:[address] [facility] Neutrophil % 80.3 % 10/26/2023 4:[address] [facility] Neutrophil Absolute (ANC) - Automated 6.04 1.70 - 6.10 x10(3)/mc L 10/26/2023 4:[address] [facility] Lymph % 11.1 % 10/26/2023 4:47 AM EDT [facility] Lymph Absolute 0.83(L) 0.90 - 3.20 x10(3)/mc L 10/26/2023 4:47 AM EDT [facility] Monocyte % 6.8 % 10/26/2023 4:47 AM EDT [facility] Monocyte Absolute 0.51 0.30 - 0.90 x10(3)/mc L 10/26/2023 4:47 AM EDT [facility] Eos % 1.1 % 10/26/2023 4:47 AM EDT [facility] Eos Absolute 0.08 0.00 - 0.40 x10(3)/mc L 10/26/2023 4:47 AM EDT [facility] Basophil % 0.3 % 10/26/2023 4:47 AM EDT [facility] Baso Absolute 0.02 0.00 - 0.10 x10(3)/mc L 10/26/2023 4:47 AM EDT [facility] Immature Gran % 0.4 % 4:47 AM EDT [facility] Immature Gran Absolute 0.03 0.00 - 0.04 x10(3)/mc L 10/26/2023 4:47 AM EDT [facility] Blood VENOUS BLOOD SPECIMEN / Unknown IP Care Team Draw / Unknown 10/26/2023 4:00 AM EDT 10/26/2023 4:13 AM EDT Ros Gonzáles MD HEMATOLOGY ORDERABLE S [facility] [place] [address] * XR ERCP (10/25/2023 4:40 PM EDT) Narrative [facility] - 10/25/2023 4:45 PM EDT See PACS for result report. Ros Gonzáles MD IMG FILM LIBRARY ORD ERABLES [facility] JAYLEEN Jenkins * (ABNORMAL) Cytology FNA (10/25/2023 3:19 PM EDT) Case Report Medical Cytology Report ? Case: [id number] ? Authorizing Provider: ??Ros Gonzáles MD ?Collected: ? 10/25/2023 1519 ? Ordering Location: ? [place] at [facility] [place] ?? Received: ?10/25/2023 1627 ? Pathologist: ? Garrick Vuong MD ? Specimen: ?Pancreas, Head, mass ? 10/28/2023 11:54 AM EDT [facility] Specimen Source Pancreas, Head (EUS-guided FNA) 10/28/2023 11:54 AM EDT [facility] Final Diagnosis Positive for malignancy 10/28/2023 11:54 AM T [facility] Diagnosis Discussion Adenocarcinoma. (Cell block was examined.) 10/28/2023 11:54 AM EDT [facility] Specimen Adequacy Satisfactory for evaluation. 10/28/2023 11:[address] [facility] Additional Studies Block Antibody Result [...] The assays were performed according to the regional environmental manager's instructions using anti MLH-1 (ES05), anti-MSH-2 ([id number]), andti-MSH-6 (44), and anti-PMS-2 (MRQ-28) antibodies. 10/28/2023 11:[address] [facility] Disclaimer(s) Formalin-fixed, paraffin-embedded tissue sections [...] and other diagnostic tests. 10/28/2023 11:[address] [facility] Clinical Information 83 yrs old male/EUS/ERCP/ pancreas head mass, malignant biliary obstruction 10/28/2023 11:[address] [facility] Immediate Assessment Fine Needle Aspiration Immediate [...] for final interpretation. 10/28/2023 11:54 AM EDT [facility] Gross Description Received in formalin, approximately 45 mL total volume of cloudy, red fluid with clots. Total preparation: Diff-Quik slide(s): 4, Pap Stain slide(s): 4, and Cell Block: 1. 10/28/2023 11:54 AM EDT [facility] Result Note THIS RESULT REQUIRES PHYSICIAN/CRYSTAL FOLLOW UP(A) 10/28/2023 11:54 AM EDT [facility] Fine Needle Aspirate STRUCTURE OF HEAD OF PANCREAS / Unknown Non Blood Collection / Unknown 10/25/2023 3:19 PM EDT 10/25/2023 4:27 PM EDT Ros Gonzáles MD PATHOLOGY/CYTOLOGY O [place] Performing Organization Address City/State/[facility] Co de Phone Number [facility] [place] [address] * ERCP (10/25/2023 2:24 PM EDT) ERCP [facility] Endoscopy Procedure Date: 10/25/2023 2:24 PM ? Patient Name: Benny Zurita ? Date of : 1940 ? Age: 83 ? Order #: [id number] ? Instrument Name: [id number] ? Procedure: ? ERCP Providers: ? Aaron Alvarado ? Mariah Olmos, ? Skip Locator Referring MD: ?Andres Benitez MD Complications: ? [...] (10/25/2023 2:23 PM EDT) UPPER ENDOSCOPIC ULTRASOUND [facility] Endoscopy Procedure Date: 10/25/2023 2:23 PM ? Patient Name: Benny Zurita ? Date of : 1940 ? Age: 83 ? Order #: [id number] ? Instrument Name: [id number] ? Procedure: ? Upper EUS Patient Profile: ? 83m with suspected malignant ? biliary obstruction Providers: ? Aaron Alvarado ? Mariah Olmos, ? Skip Locator Referring MD: ? Medicines: ? See the [...] without invasion ? - Using a 22G Purple Binder needle with stylet through ? Duodenum, FNB [...] 9.50 x10(3)/mc L 10/25/2023 4:28 AM EDT [facility] Red Blood Cell 3.76(L) 4.58 - 5.54 x10(6)/mc L 10/25/2023 4:[address] [facility] Hemoglobin 12.2(L) 13.7 - 16.5 g/dL 10/25/2023 4:[address] [facility] Hematocrit 34.1(L) 40.5 - 48.5 % 10/25/2023 4:[address] [facility] Mean Cell Volume 90.7 82.9 - 93.1 fL 10/25/2023 4:[address] [facility] Mean Cell Hemoglobin 32.4(H) 27.5 - 32.1 pg 10/25/2023 4:[address] [facility] Mean Cell Hemoglobin Concentration 35.8(H) 32.0 - 35.7 g/dL 10/25/2023 4:[address] [facility] Platelet 193 145 - 357 x10(3)/mc L 10/25/2023 4:[address] [facility] Mean Platelet Volume 11.4 7.6 - 12.9 fL 10/25/2023 4:[address] [facility] RDW Standard Deviation 46.3(H) 36.0 - 45.0 fL 10/25/2023 4:[address] [facility] RDW coefficient of variation 13.9(H) 11.4 - 13.8 % 10/25/2023 4:[address] [facility] NRBC% auto 0.0 % 10/25/2023 4:[address] [facility] NRBC Absolute 0.00 0.00 - 0.00 x10(3)/mc L 10/25/2023 4:[address] [facility] Neutrophil % 63.6 % 10/25/2023 4:[address] [facility] Neutrophil Absolute (ANC) - Automated 2.88 1.70 - 6.10 x10(3)/mc L 10/25/2023 4:[address] [facility] Lymph % 16.8 % 10/25/2023 4:[address] [facility] Lymph Absolute 0.76(L) 0.90 - 3.20 x10(3)/mc L 10/25/2023 4:[address] [facility] Monocyte % 11.1 % 10/25/2023 4:[address] [facility] Monocyte Absolute 0.50 0.30 - 0.90 x10(3)/mc L 10/25/2023 4:[address] [facility] Eos % 6.9 % 10/25/2023 4:[address] [facility] Eos Absolute 0.31 0.00 - 0.40 x10(3)/mc L 10/25/2023 4:[address] [facility] Basophil % 0.9 % 10/25/2023 4:28 AM EDT [facility] Baso Absolute 0.04 0.00 - 0.10 x10(3)/mc L 10/25/2023 4:28 AM EDT [facility] Immature Gran % 0.7 % 4:28 AM EDT [facility] Immature Gran Absolute 0.03 0.00 - 0.04 x10(3)/mc L 10/25/2023 4:28 AM EDT [facility] Blood VENOUS BLOOD SPECIMEN / Unknown IP Care Team Draw / Unknown 10/25/2023 3:53 AM EDT 10/25/2023 4:17 AM EDT Rj Rizvi MD HEMATOLOGY ORDERABLE S Performing Organization Address City/State/[facility] Co de Phone Number [facility] [place] [address] * (ABNORMAL) Comprehensive metabolic panel (10/25/2023 3:53 AM EDT) Glucose 121 65 - 199 mg/dL 10/25/2023 4:45 AM EDT [facility] Comment:Glucose Concentratio n >=200 mg/dL plus symptoms is consistent with Diabetes Mellitus. Blood Urea Nitrogen 20 10 - 20 mg/dL 10/25/2023 4:45 AM EDT [facility] Creatinine 0.70(L) 0.80 - 1.50 mg/dL 10/25/2023 4:45 AM EDT [facility] Sodium 131(L) 135 - 145 mMol/L 10/25[facility]2023 [facility] Potassium 3.7 3.5 - 5.0 mMol/L 10/25/2023 4:[facility] Chloride 97(L) 98 - 107 mMol/L 10/25/2023 4:45 [facility] Carbon Dioxide 22 22 - 31 mMol/L 10/25/2023 4:45 AM EDT [facility] Anion Gap 12 5 - 15 mMol/L 10/25/2023 4:[address] [facility] Calcium 8.8 8.5 - 10.5 mg/dL 10/25/2023 4:[address] [facility] Protein, Total 5.9(L) 6.1 - 8.0 g/dL 10/25/2023 4:[address] [facility] Albumin 3.3 3.2 - 5.2 g/dL 10/25/2023 4:[address] [facility] Aspartate Aminotransferase 190(H) <=39 unit/L 10/25/2023 4:[address] [facility] Alanine Aminotransferase 458(H) 0 - 55 unit/L 10/25/2023 4:[address] [facility] Alkaline Phosphatase 366(H) 40 - 130 unit/L 10/25/2023 4:[address] [facility] Bilirubin, Total 8.5(H) <=1.3 mg/dL 10/25/2023 4:[address] [facility] Est Glomerular Filtration Rate - Male 93 mL/min/1. 73 m?? 10/25/2023 4:[address] [facility] Comment: This patient's [...] AM EDT Rj Rizvi MD CHEMISTRY ORDERABLES [facility] [place] [address] * (ABNORMAL) Basic Metabolic Panel (10/24/2023 4:17 PM EDT) Glucose 147 65 - 199 mg/dL 10/24/2023 4:48 PM EDT [facility] Comment:Glucose Concentratio n >=200 mg/dL plus symptoms is consistent with Diabetes Mellitus. Blood Urea Nitrogen 17 10 - 20 mg/dL 10/24/2023 4:48 PM EDT [facility] Creatinine 0.68(L) 0.80 - 1.50 mg/dL 10/24/2023 4:48 PM EDT [facility] Sodium 131(L) 135 - 145 mMol/L 10/24/2023 4:48 PM EDT [facility] Potassium 3.5 3.5 - 5.0 mMol/L 10/24/2023 4:48 PM EDT [facility] Chloride 94(L) 98 - 107 mMol/L 10/24/2023 4:48 PM EDT [facility] Carbon Dioxide 26 22 - 31 mMol/L 10/24/2023 4:48 PM EDT [facility] Anion Gap 11 5 - 15 mMol/L 10/24/2023 4:48 PM EDT [facility] Calcium 9.0 8.5 - 10.5 mg/dL 10/24/2023 4:48 PM EDT [facility] Est Glomerular Filtration Rate - Male 93 mL/min/1. 73 m?? 10/24/2023 4:48 PM EDT [facility] Comment: This patient's estimated [...] PM EDT Rj Rizvi MD CHEMISTRY ORDERABLES [facility] [place] [address] * CT Chest w Contrast (10/24/2023 1:41 PM EDT) WORKSTATION ID [id number] RAD Anatomical Region Laterality Modality Chest Computed Tomogra phy Impressions 10/24/2023 5:21 PM EDT No metastatic disease in the chest. Thank you for letting us participate in the care of this patient. ??If you are a health care provider and have any questions regarding this report, please contact the number below. ??For patients who have questions please contact the health lead caregiver that requested your imaging first. ? Narrative [...] patients who have questions please contactthe health lead caregiver that requested your imaging first. Electronically signed by: aMriam Johnson MD, [facility]([phone]), at 10/24/2023 5:21 PM Rj Rizvi MD IM CT ORDERABLES * (ABNORMAL) CBC (with Diff) (10/24/2023 4:11 AM EDT) White Blood Cell 5.21 4.00 - 9.50 x10(3)/mc L 10/24/2023 4:[address] [facility] Red Blood Cell 3.79(L) 4.58 - 5.54 x10(6)/mc L 10/24/2023 4:[address] [facility] Hemoglobin 12.3(L) 13.7 - 16.5 g/dL 10/24/2023 4:[address] [facility] Hematocrit 34.0(L) 40.5 - 48.5 % 10/24/2023 4:[address] [facility] Mean Cell Volume 89.7 82.9 - 93.1 fL 10/24/2023 4:[address] [facility] Mean Cell Hemoglobin 32.5(H) 27.5 - 32.1 pg 10/24/2023 4:[address] [facility] Mean Cell Hemoglobin Concentration 36.2(H) 32.0 - 35.7 g/dL 10/24/2023 4:[address] [facility] Platelet 204 145 - 357 x10(3)/mc L 10/24/2023 4:[address] [facility] Mean Platelet Volume 11.6 7.6 - 12.9 fL 10/24/2023 4:[address] [facility] RDW Standard Deviation 44.2 36.0 - 45.0 fL 10/24/2023 4:[address] [facility] RDW coefficient of variation 13.4 11.4 - 13.8 % 10/24/2023 4:[address] [facility] NRBC% auto 0.0 % 10/24/2023 4:[address] [facility] NRBC Absolute 0.00 0.00 - 0.00 x10(3)/mc L 10/24/2023 4:[address] [facility] Neutrophil % 70.5 % 10/24/2023 4:[address] [facility] Neutrophil Absolute (ANC) - Automated 3.68 1.70 - 6.10 x10(3)/mc L 10/24/2023 4:53 AM EDT [facility] Lymph % 15.2 % 10/24/2023 4:53 AM EDT [facility] Lymph Absolute 0.79(L) 0.90 - 3.20 x10(3)/mc L 10/24/2023 4:53 AM EDT [facility] Monocyte % 10.6 % 10/24/2023 4:53 AM EDT [facility] Monocyte Absolute 0.55 0.30 - 0.90 x10(3)/mc L 10/24/2023 4:53 AM EDT [facility] Eos % 2.5 % 10/24/2023 4:53 AM EDT [facility] Eos Absolute 0.13 0.00 - 0.40 x10(3)/mc L 10/24/2023 4:53 AM EDT [facility] Basophil % 0.6 % 10/24/2023 4:53 AM EDT [facility] Baso Absolute 0.03 0.00 - 0.10 x10(3)/mc L 10/24/2023 4:53 AM EDT [facility] Immature Gran % 0.6 % 4:53 AM EDT [facility] Immature Gran Absolute 0.03 0.00 - 0.04 x10(3)/mc L 10/24/2023 4:53 AM EDT [facility] Blood VENOUS BLOOD SPECIMEN / Unknown IP Care Team Draw / Unknown 10/24/2023 4:11 AM EDT 10/24/2023 4:43 AM EDT Rj Rizvi MD HEMATOLOGY ORDERABLE S [facility] [place] [address] * (ABNORMAL) Comprehensive metabolic panel (10/24/2023 4:11 AM EDT) Glucose 149 65 - 199 mg/dL 10/24/2023 5:[address] [facility] Comment:Glucose Concentratio n >=200 mg/dL plus symptoms is consistent with Diabetes Mellitus. Blood Urea Nitrogen 17 10 - 20 mg/dL 10/24/2023 5:[address] [facility] Creatinine 0.80 0.80 - 1.50 mg/dL 10/24/2023 5:[address] [facility] Sodium 133(L) 135 - 145 mMol/L 10/24/2023 5:[address] [facility] Potassium 3.9 3.5 - 5.0 mMol/L 10/24/2023 5:[address] [facility] Chloride 99 98 - 107 mMol/L 10/24/2023 5:[address] [facility] Carbon Dioxide 22 22 - 31 mMol/L 10/24/2023 5:[address] [facility] Anion Gap 12 5 - 15 mMol/L 10/24/2023 5:[address] [facility] Calcium 8.8 8.5 - 10.5 mg/dL 10/24/2023 5:[address] [facility] Protein, Total 6.0(L) 6.1 - 8.0 g/dL 10/24/2023 5:[address] [facility] Albumin 3.4 3.2 - 5.2 g/dL 10/24/2023 5:[address] [facility] Aspartate Aminotransferase 224(H) <=39 unit/L 10/24/2023 5:[address] [facility] Alanine Aminotransferase 498(H) 0 - 55 unit/L 10/24/2023 5:[address] [facility] Alkaline Phosphatase 359(H) 40 - 130 unit/L 10/24/2023 5:[address] [facility] Bilirubin, Total 7.8(H) <=1.3 mg/dL 10/24/2023 5:55 AM EDT [facility] Est Glomerular Filtration Rate - Male 89 mL/min/1. 73 m?? 10/24/2023 5:55 AM EDT [facility] Comment: This patient's estimated [...] AM EDT Rj Rizvi MD CHEMISTRY ORDERABLES [facility] [place] [address] * Phosphorus (10/23/2023 4:27 PM EDT) Phosphorus 3.6 2.5 - 4.5 mg/dL 10/23/2023 7:35 PM EDT [facility] Blood VENOUS BLOOD SPECIMEN / Unknown IP Care Team Draw / Unknown 10/23/2023 4:27 PM EDT 10/23/2023 4:35 PM EDT Rj Rizvi MD CHEMISTRY ORDERABLES [facility] [place] [address] * Magnesium (10/23/2023 4:27 PM EDT) Magnesium 0.76 0.69 - 1.07 mMol/L 10/23/2023 7:35 PM EDT [facility] Blood VENOUS BLOOD SPECIMEN / Unknown IP Care Team Draw / Unknown 10/23/2023 4:27 PM EDT 10/23/2023 4:35 PM EDT Rj Rizvi MD CHEMISTRY ORDERABLES [facility] [place] [address] * (ABNORMAL) Basic Metabolic Panel (10/23/2023 4:27 PM EDT) Glucose 164 65 - 199 mg/dL 10/23/2023 5:36 PM EDT [facility] Comment:Glucose Concentratio n >=200 mg/dL plus symptoms is consistent with Diabetes Mellitus. Blood Urea Nitrogen 16 10 - 20 mg/dL 10/23/2023 5:36 PM EDT [facility] Creatinine 0.85 0.80 - 1.50 mg/dL 10/23/2023 5:36 PM EDT [facility] Sodium 134(L) 135 - 145 mMol/L 10/23/2023 5:36 PM EDT [facility] Potassium 2.9(LLL) 3.5 - 5.0 mMol/L 10/23/2023 5:36 PM EDT [facility] Chloride 94(L) 98 - 107 mMol/L 10/23/2023 5:36 PM EDT [facility] Carbon Dioxide 26 22 - 31 mMol/L 10/23/2023 5:36 PM EDT [facility] [facility] Anion Gap 14 5 - 15 mMol/L 10/23/2023 5:36 PM EDT [facility] Calcium 9.1 8.5 - 10.5 mg/dL 10/23/2023 5:36 PM EDT [facility] Est Glomerular Filtration Rate - Male 87 mL/min/1. 73 m?? 10/23/2023 5:36 PM EDT [facility] Comment: This patient's estimated [...] Biggs MD CHEMISTRY ORDERABLES Performing Organization Address City/[facility] Co de Phone Number [facility] [place] [address] * EKG 12 Lead (10/23/2023 1:40 PM EDT) Ventricular rate 56 BPM MUSE SYSTEM Atrial Rate 56 BPM MUSE SYSTEM P-R Interval 146 ms MUSE SYSTEM QRS Duration 122 ms MUSE SYSTEM Q-T Interval 474 ms MUSE SYSTEM QTC Calculated (Bezet) 457 ms MUSE SYSTEM Calculated P [place] 46 degrees MUSE SYSTEM Calculated R [place] -59 degrees MUSE SYSTEM Calculated T [place] 43 degrees MUSE SYSTEM INTERPRETATION Sinus bradycardia with marked sinus arrhythmia Left anterior fascicular block Left ventricular hypertrophy with QRS widening ( R in aVL , [place] product ) Possible Lateral infarct , age undetermined Abnormal ECG No previous ECGs available Confirmed by Devon Leo MD ([id number]) on 10/24/2023 2:23:18 PM MUSE SYSTEM 10/23/2023 1:40 PM EDT 10/24/2023 2:23 PM EDT Leia Rincon MD ECG ORDERABLES Performing Organization Address City/[facility] Co de Phone Number MUSE SYSTEM * ABORH RECHECK (10/23/2023 1:24 PM EDT) ABORH Recheck O POSITIVE 10/23/2023 2:12 PM EDT [facility] Blood VENOUS BLOOD SPECIMEN / Unknown IP Care Team Draw / Unknown 10/23/2023 1:24 PM EDT 10/23/2023 1:29 PM EDT Leia Rincon MD BLOOD BANK LAB ORDER RICHELLE [facility] [place] [address] * CT Abdomen & Pelvis w Contrast (10/23/2023 1:10 PM EDT) WORKSTATION ID [id number] RAD Anatomical Region Laterality Modality Abdomen, Pelvis [...] who have questions please contact the health lead caregiver that requested your imaging first. ? Electronically signed by: Davy Sinclair MD, [facility] ([phone]), at 10/23/2023 1:26 PM Narrative 10/23/2023 1:26 [...] patients who have questions please contactthe health lead caregiver that requested your imaging first. Electronically signed by: Davy Sinclair MD, [facility]([phone]), at 10/23/2023 1:26 PM Leia Rincon MD IM CT ORDERABLES * (ABNORMAL) CBC (with Diff) (10/23/2023 12:32 PM EDT) White Blood Cell 4.60 4.00 - 9.50 x10(3)/mc L 10/23/2023 1:[address] [facility] Red Blood Cell 4.00(L) 4.58 - 5.54 x10(6)/mc L 10/23/2023 1:[address] [facility] Hemoglobin 13.1(L) 13.7 - 16.5 g/dL 10/23/2023 1:[address] [facility] Hematocrit 36.2(L) 40.5 - 48.5 % 10/23/2023 1:[address] [facility] Mean Cell Volume 90.5 82.9 - 93.1 fL 10/23/2023 1:[address] [facility] Mean Cell Hemoglobin 32.8(H) 27.5 - 32.1 pg 10/23/2023 1:[address] [facility] Mean Cell Hemoglobin Concentration 36.2(H) 32.0 - 35.7 g/dL 10/23/2023 1:[address] [facility] Platelet 233 145 - 357 x10(3)/mc L 10/23/2023 1:[address] [facility] Mean Platelet Volume 11.4 7.6 - 12.9 fL 10/23/2023 1:[address] [facility] RDW Standard Deviation 43.7 36.0 - 45.0 fL 10/23/2023 1:[address] [facility] RDW coefficient of variation 13.2 11.4 - 13.8 % 10/23/2023 1:[address] [facility] NRBC% auto 0.0 % 10/23/2023 1:[address] [facility] NRBC Absolute 0.00 0.00 - 0.00 x10(3)/mc L 10/23/2023 1:[address] [facility] Neutrophil % 70.4 % 10/23/2023 1:[address] [facility] Neutrophil Absolute (ANC) - Automated 3.24 1.70 - 6.10 x10(3)/mc L 10/23/2023 1:17 PM EDT [facility] Lymph % 15.4 % 10/23/2023 1:17 PM EDT [facility] Lymph Absolute 0.71(L) 0.90 - 3.20 x10(3)/mc L 10/23/2023 1:17 PM EDT [facility] Monocyte % 10.0 % 10/23/2023 1:17 PM EDT [facility] Monocyte Absolute 0.46 0.30 - 0.90 x10(3)/mc L 10/23/2023 1:17 PM EDT [facility] Eos % 2.6 % 10/23/2023 1:17 PM EDT [facility] Eos Absolute 0.12 0.00 - 0.40 x10(3)/mc L 10/23/2023 1:17 PM EDT [facility] Basophil % 0.9 % 10/23/2023 1:17 PM EDT [facility] Baso Absolute 0.04 0.00 - 0.10 x10(3)/mc L 10/23/2023 1:17 PM EDT [facility] Immature Gran % 0.7 % 1:17 PM EDT [facility] Immature Gran Absolute 0.03 0.00 - 0.04 x10(3)/mc L 10/23/2023 1:17 PM EDT [facility] Blood VENOUS BLOOD SPECIMEN / Unknown Venipuncture / Unknown 10/23/2023 12:32 PM EDT 10/23/2023 12:41 PM EDT Leia Rincon MD HEMATOLOGY ORDERABLE S [facility] [place] [address] * Type and screen ([facility]FREDY) (10/23/2023 12:32 PM EDT) [facility] ABORH Type O POSITIVE 10/23/2023 1:31 PM EDT [facility] PATIENT HISTORY Not Found 10/23/2023 1:31 PM EDT [facility] Expires at [id number] on: 10-26-2023 10/23/2023 1:31 PM EDT [facility] ANTIBODY SCREEN AUTOMATED Negative 10/23/2023 1:31 PM EDT [facility] T&S only valid at [facility] 10/23/2023 1:31 PM EDT [facility] Blood VENOUS BLOOD SPECIMEN / Unknown Venipuncture / Unknown 10/23/2023 12:32 PM EDT 10/23/2023 12:37 PM EDT Narrative [facility] - 10/23/2023 1:31 PM EDT This Type and Screen result is only valid at the [facility] Leia Rincon MD BLOOD BANK LAB ORDER RICHELLE [facility] [place] [address] * Lipase (10/23/2023 12:32 PM EDT) [facility] Lipase 49 0 - 60 unit/L 10/23/2023 1:11 PM EDT [facility] Blood VENOUS BLOOD SPECIMEN / Unknown Venipuncture / Unknown 10/23/2023 12:32 PM EDT 10/23/2023 12:41 PM EDT Leia Rincon MD CHEMISTRY ORDERABLES [facility] [place] [address] * (ABNORMAL) Comprehensive metabolic panel (10/23/2023 12:32 PM EDT) [facility] Glucose 186 65 - 199 mg/dL 10/23/2023 1:13 PM EDT [facility] Comment:Glucose Concentratio n >=200 mg/dL plus symptoms is consistent with Diabetes Mellitus. Blood Urea Nitrogen 17 10 - 20 mg/dL 10/23/2023 1:[address] [facility] Creatinine 0.79(L) 0.80 - 1.50 mg/dL 10/23/2023 1:[address] [facility] Sodium 130(L) 135 - 145 mMol/L 10/23/2023 1:[address] [facility] Potassium 2.9(LLL) 3.5 - 5.0 mMol/L 10/23/2023 1:[address] [facility] Chloride 92(L) 98 - 107 mMol/L 10/23/2023 1:[address] [facility] Carbon Dioxide 24 22 - 31 mMol/L 10/23/2023 1:[address] [facility] Anion Gap 14 5 - 15 mMol/L 10/23/2023 1:[address] [facility] Calcium 9.1 8.5 - 10.5 mg/dL 10/23/2023 1:[address] [facility] Protein, Total 6.5 6.1 - 8.0 g/dL 10/23/2023 1:[address] [facility] Albumin 3.8 3.2 - 5.2 g/dL 10/23/2023 1:[address] [facility] Aspartate Aminotransferase 258(H) <=39 unit/L 10/23/2023 1:[address] [facility] Alanine Aminotransferase 577(H) 0 - 55 unit/L 10/23/2023 1:[address] [facility] Alkaline Phosphatase 375(H) 40 - 130 unit/L 10/23/2023 1:[address] [facility] Bilirubin, Total 8.6(H) <=1.3 mg/dL 10/23/2023 1:[address] [facility] Est Glomerular Filtration Rate - Male 89 mL/min/1. 73 m?? 10/23/2023 1:13 PM EDT [facility] Comment: This patient's estimated [...] PM EDT Leia Rincon MD CHEMISTRY ORDERABLES [facility] [place] [address] documented in this encounter Visit Diagnoses Not [...] Oral, NIGHTLY PRN, Starting on Wed10/23/23 at 2027, Until Wed10/27/23 at 1717, Sleep, [...] Rosemary Guzmán, CARISSA)1142 (Stopped - Provider: Rosemary Guzmán RN) montelukast [...] Routine 1026 (Given - Provider: Rosemary Guzmán, CRAISSA)213 (Given - Provider: Peter Dixon, CARISSA) 0813 [...] at 0826 1343 (New Bag - Provider: Alehtea Barnes RN) 08 (Stopped - Provider: Rosemary Guzmán, RN) PRN [...] 1411 (See Alternative - Provider: Rosemary Guzmán, RN) ondansetron ODT (Zofran-ODT) disintegrating tablet 4 mg(Linked [...] ineffective. documented in this encounter Care Teams Rehabilitation Services Counselor Relationship Specialty Start Date End Date Jez Vance MD [address] [place] [address] PCP - General 01/07/10 documented as of this encounter
--- OUTSIDE RECORDS SUMMARY | 2023-12-17 01:47 | XMS_ITS | Encounter Summary ---
Author Organization [facility] Address One [facility] [place] [address] Care Team Providers Care Digital Media Director Name Role Phone Jez Vance MD Primary Care Provider [phone] [phone] Encounter Details Date Type Department Care Team [...] AM EDT Office Visit Hematology/Oncology at [address] [phone] Antonio Brwonlee MD [facility] [place] [address] Fani Haskins APRN [address] [place] [address] DR HEMATOLOGY AND ONCOLOGY [place], [place] [phone] 12/17/2023 9:00 AM EDT Infusion Hematology Oncology at [address] [phone] 12/17/2023 10:00 AM EDT Clinical Support Hematology/Oncology at [address] [phone] [facility] DR [place] [address] 12/24/2023 10:40 AM EST Office Visit Cardiology at [address] [phone] Cory Sellers MD [facility] [place] [address] 12/30/2023 9:00 AM EST Office Visit Hematology/Oncology at [address] [phone] Antonio Brownlee MD [facility] [place] [address] Fani Haskins APRN [address] [place] [address] DR HEMATOLOGY [place] [address] 12/30/2023 9:30 AM EST Infusion Hematology Oncology at [address] [phone] 04/04/2024 9:45 AM EST TH Visit (TeleHealth) Radiation Oncology at [address] [phone] Adrienne Singh PA [facility] DR [place] [address] documented as of this encounter Visit Diagnoses Not on filedocumented in this encounter Care Teams Digital Media Director Relationship Specialty Start Date End Date Jez Vance MD [address] [place] [address] PCP - General 01/07/10 documented as of this encounter
--- OUTSIDE RECORDS SUMMARY | 2023-12-17 01:47 | XMS_ITS | Encounter Summary ---
Author Organization [facility] Address One [facility] [place] [address] Care Team Providers Care Sander Machine Name Role Phone Jez Vance MD Primary Care Provider [phone] Encounter Details Date Type Department Care Team (Late st Contact Info) Description 08/20/2023 Interpretation Only [address] [phone] Beba Muller, CARISSA [address] [address] Social History Tobacco Use Types Packs/Day Years [...] AM EDT Office Visit Hematology/Oncology at [address] [phone] Antonio Brownlee MD [facility] [place] [place] [address] Fani Haskins APRN [address] [place] [address] DR HEMATOLOGY AND ONCOLOGY [place], [place] [phone] 12/17/2023 9:00 AM EDT Infusion Hematology Oncology at [address] [phone] 12/17/2023 10:00 AM EDT Clinical Support Hematology/Oncology at [address] [phone] Nadege Howell, PALLAVI [facility] DR HEMATOLOGY [place] [address] 12/24/2023 10:40 AM EST Office Visit Cardiology at [address] [phone] Cory Sellers MD [facility] [place] [address] 12/30/2023 9:00 AM EST Office Visit Hematology/Oncology at [address] [phone] Antonio Brownlee MD [facility] [place] [address] Fani Haskins APRN [address] [place] [address] DR HEMATOLOGY AND ONCOLOGY [place], [place] [phone] 12/30/2023 9:30 AM EST Infusion Hematology Oncology at [address] [phone] 04/04/2024 9:45 AM EST TH Visit (TeleHealth) Radiation Oncology at [address] [phone] Adrienne Singh PA [facility] DR HEMATOLOGY [place] [address] documented as of this encounter Procedures Procedure Name Priority Date/Time Associated Diagnosis Comments DXA CENTRAL SPINE, HIP, AND/OR WHOLE BODY (GENERIC) Routine 08/20/2023 10:14 AM EDT documented in this encounter Results * DXA Central Spine, Hip, and/or Whole Body (Generic) (08/20/2023 10:14 AM EDT) PT CLASS O RAD ADMITDTTM [id number] RAD PT RAD INFO [id number]^Unavailable ^Physician RAD EXAM DESC XDXAC^BD Bone Density DEXA Axial Skeleton^RIS [facility] WORKSTATION ID [id number] [facility] Anatomical Region Laterality Modality C-spine, Hip N/A [...] who have questions please contact the health health care assistant that requested your imaging first. ? 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 COMPARISON: None. 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 Unknown IMG DEXA ORDERABLES documented in this encounter Visit Diagnoses Not on filedocumented in this encounter Care Teams Sander Machine Relationship Specialty Start Date End Date Jez Vance MD [address] [place] [address] PCP - General 01/07/10 documented as of this encounter
--- OUTSIDE RECORDS SUMMARY | 2023-12-17 01:48 | XMS_ITS | Encounter Summary ---
Author Organization [facility] Address [facility] [place] [address] Care Team Providers Care Industrial Custodian Name Role Phone Jez Vance MD Primary Care Provider [phone] Reason for Visit * Reason Comments Injections * Treatment/Therapy Plan Authorization (Routine) - Closed Specialty Diagnoses / Procedures Referred By Deean yao Referred To Contact Radiation Oncology / Hematology and Oncology Diagnoses Malignant neoplasm of prostate Procedures TC LEUPROLIDE ACETATE 7.5MG, FOR DEPOST SUSPENSION (LUPRON DEPOT) [id number] LUPRON DEPOT Toro Hayes MD [address] [place] [address] [place] [address] Toro Hayes MD [address] [place] [address] [place] [address] Referral ID Status Reason Start Date Expiration Date Visits Re quested Visits Authorized [id number] Closed 08/06/2022 08/06/2023 1 99 Encounter Details Date Type Department Care Team (Late st Contact Info) Description 11/05/2022 8:00 AM EDT Infusion Hematology Oncology at [address] [phone] Malignant neoplasm of prostate Social History Tobacco [...] AM EDT Office Visit Hematology/Oncology at [address] [phone] Antonio Brownlee MD [facility] [place] [address] Fani Haskins APRN [address] [place] [address] DR [place] [address] 12/17/2023 9:00 AM EDT Infusion Hematology Oncology at [address] [phone] 12/17/2023 10:00 AM EDT Clinical Support Hematology/Oncology at [address] [phone] [facility] DR HEMATOLOGY [place] [address] 12/24/2023 10:40 AM EST Office Visit Cardiology at [address] [phone] Cory Sellers MD [facility] [place] [address] 12/30/2023 9:00 AM EST Office Visit Hematology/Oncology at [address] [phone] Antonio Brownlee MD [facility] [place] [address] Fani Haskins APRN [address] [place] [address] DR HEMATOLOGY AND ONCOLOGY [place], [place] [address] 12/30/2023 9:30 AM EST Infusion Hematology Oncology at [address] [phone] 04/04/2024 9:45 AM EST TH Visit (TeleHealth) Radiation Oncology at [address] [phone] Adrienne Singh PA [facility] HEMATOLOGY [place] [address] documented as of this encounter Visit Diagnoses [...] mg documented in this encounter Care Teams Industrial Custodian Relationship Specialty Start Date End Date Jez Vance MD [address] [place] [address] PCP - General 01/07/10 documented as of this encounter
--- OUTSIDE RECORDS SUMMARY | 2023-12-17 01:48 | XMS_ITS | Encounter Summary ---
Author Organization [facility] Address One [facility] [place] [address] Care Team Providers Care Neonatal Critical Care Nurse Name Role Phone Jez Vance MD Primary Care Provider [phone] Encounter Details Date Type Department Care Team [...] AM EDT Office Visit Hematology/Oncology at [address] [phone] Antonio Brownlee MD [facility] [place] [address] Fani Haskins APRN [address] [place] [address] DR HEMATOLOGY AND ONCOLOGY [place], [place] [phone] 12/17/2023 9:00 AM EDT Infusion Hematology Oncology at [address] [phone] 12/17/2023 10:00 AM EDT Clinical Support Hematology/Oncology at [address] [phone] [facility] DR [place] [address] 12/24/2023 10:40 AM EST Office Visit Cardiology at [address] [phone] Cory Sellers MD [facility] [place] [address] 12/30/2023 9:00 AM EST Office Visit Hematology/Oncology at [address] [phone] Antonio Brownlee MD [facility] [place] [address] Fani Haskins APRN [address] [place] [address] DR [place] [address] 12/30/2023 9:30 AM EST Infusion Hematology Oncology at [address] [phone] 04/04/2024 9:45 AM EST TH Visit (TeleHealth) Radiation Oncology at [address] [phone] Adrienne Singh PA [facility] DR [place] [address] documented as of this encounter Visit Diagnoses Not on filedocumented in this encounter Care Teams Neonatal Critical Care Nurse Relationship Specialty Start Date End Date Jez Vance MD [address] [place] [address] PCP - General 01/07/10 documented as of this encounter
--- OUTSIDE RECORDS SUMMARY | 2023-12-17 01:48 | XMS_ITS | Encounter Summary ---
Author Organization [facility] Address One [facility] [address] Care Team Providers Care Edge Grinder Machine Name Role Phone Jez Vance MD Primary Care Provider [phone] [phone] Encounter Details Date Type Department Care Team (Late st Contact Info) Description 11/20/2022 Orders Only Radiation Oncology at [address] [phone] Toro Hayes MD [address] [place] [address] [place] [address] Social History Tobacco Use Types [...] AM EDT Office Visit Hematology/Oncology at [address] [phone] Antonio Brownlee MD [facility] [place] [address] Fani Haskins APRN [address] [place] [address] DR HEMATOLOGY AND ONCOLOGY [place], [place] [address] 12/17/2023 9:00 AM EDT Infusion Hematology Oncology at [address] [phone] 12/17/2023 10:00 AM EDT Clinical Support Hematology/Oncology at [address] [phone] [facility] HEMATOLOGY AND [place] [address] 12/24/2023 10:40 AM EST Office Visit Cardiology at [address] [phone] Cory Sellers MD [facility] [place] [address] 12/30/2023 9:00 AM EST Office Visit Hematology/Oncology at [address] [phone] Antonio Brownlee MD [facility] [place] [address] Fani Haskins, [employer] [address] [place] [address] DR HEMATOLOGY AND ONCOLOGY [place], [place] [address] 12/30/2023 9:30 AM EST Infusion Hematology Oncology at [address] [phone] 04/04/2024 9:45 AM EST TH Visit (TeleHealth) Radiation Oncology at [address] [phone] Adrienne Singh PA [facility] DR [place] [address] documented as of this encounter Visit Diagnoses Not on filedocumented in this encounter Care Teams Edge Grinder Machine Relationship Specialty Start Date End Date Jez Vance MD [address] [place] [address] PCP - General 01/07/10 documented as of this encounter
--- OUTSIDE RECORDS SUMMARY | 2023-12-17 01:48 | XMS_ITS | Encounter Summary ---
Author Organization [facility] Address [facility] [place] [address] Care Team Providers Care Jewel Hole Rough Opener Name Role Phone Jez Vance MD Primary Care Provider +1 -[phone] Reason for Visit * Consultation (Routine) - Closed Specialty Diagnoses / Procedures Referred By Deena yao Referred To Contact Radiation Oncology Diagnoses Malignant neoplasm of prostate Procedures Simulation for Radiation Therapy Planning Toro Hayes MD [address] [place] [address] [place] [address] [facility] Rad Onc Office [address] [place] [phone] Referral ID Status Reason Start Date Expiration Date V isits Requested Visits Authorized [id number] Closed Consult, Test & Treat 08/06/2022 08/06/2023 1 1 Encounter Details Date Type Department Care Team (Latest Contact Info) Description 10/07/2022 11:00 AM EDT Ancillary Appointment Radiation Oncology at [address] [phone] Toro Hayes MD [address] [place] [address] [place] [address] Malignant neoplasm of prostate Social [...] Note for External Beam Radiation Treatment Planning [facility] Ramin Zurita is a 82 y.o. year [...] of any short term side effects or long term care pharmacist complications of therapy. I anticipate his prescription dose will be 70 Gy to the prostate, delivered in daily 2.5 Gy fractions over the course of 5.5 weeks plus correction hormone therapy. Anticipate therapy to begin within [...] as written above. Toro Hayes MD, MS Acetylene Burner Radiation Oncology documented in this encounter Plan of Treatment Upcoming Encounters Date Type Department Care Team (Late st Contact Info) Description 12/17/2023 8:30 AM EDT Office Visit Hematology/Oncology at [address] [phone] Antonio Brownlee MD [facility] [place] [address] Fani Haskins APRN [address] [place] [address] DR HEMATOLOGY AND ONCOLOGY [place], [place] [id number] 12/17/2023 9:00 AM EDT Infusion Hematology Oncology at [address] [phone] 12/17/2023 10:00 AM EDT Clinical Support Hematology/Oncology at [address] [phone] [facility] [place] [address] 12/24/2023 10:40 AM EST Office Visit Cardiology at [address] [phone] Cory Sellers MD [facility] [place] [address] 12/30/2023 9:00 AM EST Office Visit Hematology/Oncology at [address] [phone] Antonio Brownlee MD [facility] [place] [address] Fani Haskins APRN [address] [place] [address] DR HEMATOLOGY AND ONCOLOGY [place], [place] [id number] 12/30/2023 9:30 AM EST Infusion Hematology Oncology at [address] [phone] 04/04/2024 9:45 AM EST TH Visit (TeleHealth) Radiation Oncology at [address] [phone] Adrienne Singh PA [facility] [place] [address] Scheduled Orders Name Type Priority Associated Diagnoses Orde r Schedule Simulation for Radiation Therapy Planning Procedures Routine Malignant neoplasm of prostate Ordered: 08/06/2022 documented as of this encounter Visit Diagnoses Diagnosis Malignant neoplasm of prostate Malignant neoplasm of head of pancreas documented in this encounter Care Teams Jewel Hole Rough Opener Relationship Specialty Start Date End Date Jez Vance MD [address] [place] [address] PCP - General 01/07/10 documented as of this encounter
--- OUTSIDE RECORDS SUMMARY | 2023-12-17 01:48 | XMS_ITS | Encounter Summary ---
Author Organization [facility] Address [facility] [place] [address] Care Team Providers Care Optical Model Maker And Tester Name Role Phone Jez Vance MD Primary Care Provider +1 -[phone] Reason for Referral * Diagnostic Test (Routine) - Closed Specialty Diagnoses / Procedures Referred By Contac t Referred To Contact Radiology Diagnoses Malignant neoplasm of prostate Procedures MRI Pelvis wo (Prostate) Toro Hayes MD [address] [place] [address] [place] [address] [place] [address] Referral ID Status Reason Start Date Expiration Date V isits Requested Visits Authorized [id number] Closed Specialty Service Requested 08/06/2022 02/06/2024 1 1 Reason for Visit * Diagnostic Test (Routine) - Closed Specialty Diagnoses / Procedures Referred By Contac t Referred To Contact Radiology Diagnoses Malignant neoplasm of prostate Procedures MRI Pelvis wo (Prostate) Toro Hayes MD [address] [place] [address] [place] [address] [place] [address] Referral ID Status Reason Start Date Expiration Date V isits Requested Visits Authorized [id number] Closed Specialty Service Requested 08/06/2022 02/06/2024 1 1 Encounter Details Date Type Department Care Team (Latest Contact Info) Description 09/22/2022 2:56 PM EDT - 09/22/2022 11:59 PM EDT Hospital [place] [address] Toro Hayes MD [address] [place] [address] [place] [address] Malignant neoplasm of prostate Discharge Disposition: Home [...] for Pain. 09/02/2005 levoFLOXacin (Levaquin) 500 mg tabletIndications:[place] nanmaximilian neoplasm of prostate Take 1 hour before procedure 1 tablet 09/10/2022 10/23/2022 dexAMETHasone (Decadron) 2 mg tabletIndications:Mal[place] nant neoplasm of prostate Start taking day [...] AM EDT Office Visit Hematology/Oncology at [address] [phone] Antonio Brownlee MD [facility] [place] [place] [address] Fani Haskins APRN [address] [place] [address] DR HEMATOLOGY AND ONCOLOGY [place], [place] [address] 12/17/2023 9:00 AM EDT Infusion Hematology Oncology at [address] [phone] 12/17/2023 10:00 AM EDT Clinical Support Hematology/Oncology at [address] [phone] [facility] DR HEMATOLOGY [place] [address] 12/24/2023 10:40 AM EST Office Visit Cardiology at [address] [phone] Cory Sellers MD [facility] [place] [address] 12/30/2023 9:00 AM EST Office Visit Hematology/Oncology at [address] [phone] Antonio Brownlee MD [facility] [place] [address] Fani Haskins [address] HEMATOLOGY AND ONCOLOGY [place], [place] [id number] 12/30/2023 9:30 AM EST Infusion Hematology Oncology at [address] [phone] 04/04/2024 9:45 AM EST TH Visit (TeleHealth) Radiation Oncology at [address] [phone] Adrienne Singh PA [facility] DR HEMATOLOGY [place] [address] documented as of this encounter Procedures Procedure [...] who have questions please contact the health long term care pharmacist that requested your imaging first. ? Narrative 09/22/2022 9:55 PM EDT EXAMINATION: MRI [...] patients who have questions please contactthe health long term care pharmacist that requested your imaging first. Toro Hayes MD IMG MRI ORDERABLES documented in this encounter Visit Diagnoses Diagnosis Malignant neoplasm of prostate Malignant neoplasm of head of pancreas documented in this encounter Care Teams Optical Model Maker And Tester Relationship Specialty Start Date End Date Jez Vance MD [address] [place] [address] PCP - General 01/07/10 documented as of this encounter
--- OUTSIDE RECORDS SUMMARY | 2023-12-17 01:48 | XMS_ITS | Encounter Summary ---
Author Organization [facility] Address [facility] [place] [address] Care Team Providers Care Copy Reader Name Role Phone Jez Vance MD Primary Care Provider +1 [phone] Encounter Details Date Type Department Care Team [...] AM EDT Office Visit Hematology/Oncology at [address] [phone] Antonio Brownlee MD [facility] [place] [address] Fani Haskins APRN [address] [place] [address] DR HEMATOLOGY AND ONCOLOGY [place], [place] [phone] 12/17/2023 9:00 AM EDT Infusion Hematology Oncology at [address] [phone] 12/17/2023 10:00 AM EDT Clinical Support Hematology/Oncology at [address] [phone] [facility] DR HEMATOLOGY [place] [address] 12/24/2023 10:40 AM EST Office Visit Cardiology at [address] [phone] Cory Sellers MD [facility] [place] [address] 12/30/2023 9:00 AM EST Office Visit Hematology/Oncology at [address] [phone] Antonio Brownlee MD [facility] [place] [address] Fani Haskins APRN [address] [place] [address] [place] [address] 12/30/2023 9:30 AM EST Infusion Hematology Oncology at [address] [phone] 04/04/2024 9:45 AM EST TH Visit (TeleHealth) Radiation Oncology at [address] [phone] Adrienne Singh PA [facility] DR [place]ATOLOG[place] [address] documented as of this encounter Visit Diagnoses Not on filedocumented in this encounter Care Teams Copy Reader Relationship Specialty Start Date End Date Jez Vance MD [address] [place] [address] PCP - General 01/07/10 documented as of this encounter
--- OUTSIDE RECORDS SUMMARY | 2023-12-17 01:48 | XMS_ITS | Encounter Summary ---
Author Organization [facility] Address One [facility] [place] [address] Care Team Providers Care Skating Carhop Name Role Phone Jez Vance MD Primary Care Provider +1 -[phone] Encounter Details Date Type Department Care Team [...] AM EDT Office Visit Hematology/Oncology at [address] [phone] Antonio Brownlee MD [facility] [place] [address] Fani Haskins APRN [address] [place] [address] DR HEMATOLOGY AND ONCOLOGY [place], [place] [phone] 12/17/2023 9:00 AM EDT Infusion Hematology Oncology at [address] [phone] 12/17/2023 10:00 AM EDT Clinical Support Hematology/Oncology at [address] [phone] [facility] DR [place] [address] 12/24/2023 10:40 AM EST Office Visit Cardiology at [address] [phone] Cory Sellers MD [facility] [place] [address] 12/30/2023 9:00 AM EST Office Visit Hematology/Oncology at [address] [phone] Antonio Brownlee MD [facility] [place] [address] Fani Haskins APRN [address] [place] [address] DR HEMATOLOGY [place] [address] 12/30/2023 9:30 AM EST Infusion Hematology Oncology at [address] [phone] 04/04/2024 9:45 AM EST TH Visit (TeleHealth) Radiation Oncology at [address] [phone] Adrienne Singh PA [facility] DR [place] [address] documented as of this encounter Visit Diagnoses Not on filedocumented in this encounter Care Teams Skating Carhop Relationship Specialty Start Date End Date Jez Vance MD [address] [place] [address] PCP - General 01/07/10 documented as of this encounter
--- OUTSIDE RECORDS SUMMARY | 2023-12-17 01:48 | XMS_ITS | Encounter Summary ---
Author Organization [facility] Address [facility] [place] [address] Care Team Providers Care Etl Manager Name Role Phone Jez Vance MD Primary Care Provider +1 -[phone] Encounter Details Date Type Department Care Team (Late st Contact Info) Description 09/16/2022 12:00 PM EDT Procedure visit Radiation Oncology at [address] [phone] Toro Hayes MD [address] [place] [address] [place] [address] Malignant neoplasm of prostate Social [...] A CT Simulation appointment will be at [facility] on: [ Date: 10/07/22 ] [ Arrive at: 10:30 am ] Arrive for your appointment with a comfortably full bladder. How to reach us: [phone] After Hours/Weekends- Please ask for the Radiation Oncologist to be paged documented in this encounter Progress Notes * Maryjo Reina RN - 09/16/2022 12:00 PM EDT Radiation Oncology Nurse Note [facility] [place], [place] Radiation Oncology Procedure Nursing Note Procedure: Prostate fiducial by Dr Toro Hayes and Gina Villafana Fusion Coil Lot Numbers: [ [id number] ] Time of patient arrival to clinic: 11:10 am See flowsheet for all vital signs and medication list updated info. Pre procedure questions: [N/A] If Applicable: He confirms taking lorazepam 1mg po at (time): He comes to clinic accompanied by a retail delivery driver. [ X ] reviewed allergies. Specifically [...] were reviewed with him. He has the [facility] phone number and verbalized understanding to ask for the acute care occupational therapist radiation oncologist if he needs to call after clinic hours. [ N/A ] If applicable: He was reminded to not drive home due to Lorazepam. 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 Attending MD Attestation: I was present for the above procedure. I agree with the details as written above. Toro Hayes MD, MS Healthcare Consulting Manager Radiation Oncology documented in this encounter Plan of Treatment Upcoming Encounters Date Type Department Care Team (Late st Contact Info) Description 12/17/2023 8:30 AM EDT Office Visit Hematology/Oncology at [address] [phone] Antonio Brownlee MD [facility] [place] [address] Fani Haskins APRN [address] [place] [address] DR HEMATOLOGY AND ONCOLOGY [place], [place] [phone] 12/17/2023 9:00 AM EDT Infusion Hematology Oncology at [address] [phone] 12/17/2023 10:00 AM EDT Clinical Support Hematology/Oncology at [address] [phone] Nadege Howell, PALLAVI [facility] DR HEMATOLOGY [place] [address] 12/24/2023 10:40 AM EST Office Visit Cardiology at [address] [phone] Cory Sellers MD [facility] [place] [address] 12/30/2023 9:00 AM EST Office Visit Hematology/Oncology at [address] [phone] Antonio Brownlee MD [facility] [place] [address] Fani Haskins APRN [address] [place] [address] DR [place]Y [place] [address] 12/30/2023 9:30 AM EST Infusion Hematology Oncology at [address] [phone] 04/04/2024 9:45 AM EST TH Visit (TeleHealth) Radiation Oncology at [address] [phone] Adrienne Singh PA [facility] DR HEMATOLOGY [place] [address] documented as of this encounter Visit Diagnoses Diagnosis Malignant neoplasm of prostate Malignant neoplasm of head of pancreas documented in this encounter Care Teams Etl Manager Relationship Specialty Start Date End Date Jez Vance MD [address] [place] [address] PCP - General 01/07/10 documented as of this encounter
--- OUTSIDE RECORDS SUMMARY | 2023-12-17 01:48 | XMS_ITS | Encounter Summary ---
Author Organization [facility] Address One [facility] [place] [address] Care Team Providers Care Converting Technician Name Role Phone Jez Vance MD Primary Care Provider +1 -[phone] Encounter Details Date Type Department Care Team [...] AM EDT Office Visit Hematology/Oncology at [address] [phone] Antonio Brownlee MD [facility] [place] [address] Fani Haskins APRN [address] [place] [address] DR HEMATOLOGY AND ONCOLOGY [place], [place] [phone] 12/17/2023 9:00 AM EDT Infusion Hematology Oncology at [address] [phone] 12/17/2023 10:00 AM EDT Clinical Support Hematology/Oncology at [address] [phone] [facility] DR HEMATOLOGY [place] [address] 12/24/2023 10:40 AM EST Office Visit Cardiology at [address] [phone] Cory Sellers MD [facility] [place] [address] 12/30/2023 9:00 AM EST Office Visit Hematology/Oncology at [address] [phone] Antonio Brownlee MD [facility] [place] [address] Fani Haskins APRN [address] [place] [address] DR [place] [address] 12/30/2023 9:30 AM EST Infusion Hematology Oncology at [address] [phone] 04/04/2024 9:45 AM EST TH Visit (TeleHealth) Radiation Oncology at [address] [phone] Adrienne Singh PA [facility] DR HEMATOLOGY [place] [address] documented as of this encounter Visit Diagnoses Not on filedocumented in this encounter Care Teams Converting Technician Relationship Specialty Start Date End Date Jez Vance MD [address] [place] [address] PCP - General 01/07/10 documented as of this encounter
--- OUTSIDE RECORDS SUMMARY | 2023-12-17 01:48 | XMS_ITS | Encounter Summary ---
Author Organization [facility] Address One [facility] [place] [address] Care Team Providers Care Jewel Waxer Name Role Phone Jez Vance MD Primary Care Provider [phone] [phone] Encounter Details Date Type Department Care Team [...] AM EDT Office Visit Hematology/Oncology at [address] [phone] Antonio Brownlee MD [facility] [place] [place] [address] Fani Haskins APRN [address] [place] [address] DR HEMATOLOGY AND ONCOLOGY [place], [place] [phone] 12/17/2023 9:00 AM EDT Infusion Hematology Oncology at [address] [phone] 12/17/2023 10:00 AM EDT Clinical Support Hematology/Oncology at [address] [phone] [facility] DR [place] [address] 12/24/2023 10:40 AM EST Office Visit Cardiology at [address] [phone] Cory Sellers MD [facility] [address] 12/30/2023 9:00 AM EST Office Visit Hematology/Oncology at [address] [phone] Antonio Brownlee MD [facility] [place] [place] [address] Fani Haskins APRN [address] [place] [address] DR [place] [address] 12/30/2023 9:30 AM EST Infusion Hematology Oncology at [address] [phone] 04/04/2024 9:45 AM EST TH Visit (TeleHealth) Radiation Oncology at [address] [phone] Adrienne Singh PA [facility] DR [place] [address] documented as of this encounter Visit Diagnoses Not on filedocumented in this encounter Care Teams Jewel Waxer Relationship Specialty Start Date End Date Jez Vance MD [address] [place] [address] PCP - General 01/07/10 documented as of this encounter
--- OUTSIDE RECORDS SUMMARY | 2023-12-17 01:48 | XMS_ITS | Encounter Summary ---
Author Organization [facility] Address One [facility] [place] [address] Care Team Providers Care Welder Apprentice Name Role Phone Jez Vance MD Primary Care Provider +1 [phone] Encounter Details Date Type Department Care Team (Late st Contact Info) Description 11/20/2022 7:55 AM EDT Office Visit Radiation Oncology at [address] [phone] oTro Hayes MD [address] [place] [address] [place] [address] Malignant neoplasm of prostate Social [...] from the original note were not included. [facility] Medicine Radiation Oncology Radiation Oncology On-treatment [...] 12/04/22 - he plans to go to [place] immediately after his final treatment so thiswould need to occur in [place] LUTS Rec Flomax to 0.4mg --> 0.8mg qhs and ibuprofen 400-600mg QHS PRN. Emergency ISC teaching to be provided next week, given he is driving to [place] immediately after completing RT. Followup: Return to clinic next week for on treatment check. PSA recheck at end of treatment ([facility] or [facility]) No orders of the defined types were placed in this encounter. [employer] (NCI) Comprehensive Cancer Center [employer] Commission on Cancer (ACS [place]) Accredited Cancer Program [employer] (A[employer]) Accredited Radiation Oncology Program documented in this encounter Plan of Treatment Upcoming Encounters Date Type Department Care Team (Late st Contact Info) Description 12/17/2023 8:30 AM EDT Office Visit Hematology/Oncology at [address] [phone] Antonio Brownlee MD [facility] [place] [address] Fani Haskins APRN [address] [place] [address] HEMATOLOGY AND ONCOLOGY [place], [place] [address] 12/17/2023 9:00 AM EDT Infusion Hematology Oncology at [address] [phone] 12/17/2023 10:00 AM EDT Clinical Support Hematology/Oncology at [address] [phone] [facility] DR [place] [address] 12/24/2023 10:40 AM EST Office Visit Cardiology at [address] [phone] Cory Sellers MD [facility] [place] [address] 12/30/2023 9:00 AM EST Office Visit Hematology/Oncology at [address] [phone] Antonio Brownlee MD [facility] [place] [address] Fani Haskins [address] HEMATOLOGY AND ONCOLOGY [place], [place] [phone] 12/30/2023 9:30 AM EST Infusion Hematology Oncology at [address] [phone] 04/04/2024 9:45 AM EST TH Visit (TeleHealth) Radiation Oncology at [address] [phone] Adrienne Singh PA [facility] DR [place] [address] documented as of this encounter Visit Diagnoses Diagnosis Malignant neoplasm of prostate Malignant neoplasm of head of pancreas documented in this encounter Care Teams Welder Apprentice Relationship Specialty Start Date End Date Jez Vance MD [address] [place] [address] PCP - General 01/07/10 documented as of this encounter
--- OUTSIDE RECORDS SUMMARY | 2023-12-17 01:48 | XMS_ITS | Encounter Summary ---
Author Organization [facility] Address One [facility] [place] [address] Care Team Providers Care Bending Frame Operator Name Role Phone Jez Vance MD Primary Care Provider [phone] [phone] Encounter Details Date Type Department Care Team [...] AM EDT Office Visit Hematology/Oncology at [address] [phone] Antonio Brownlee MD [facility] [place] [address] Fani Haskins APRN [address] [place] [address] DR HEMATOLOGY AND ONCOLOGY [place], [place] [phone] 12/17/2023 9:00 AM EDT Infusion Hematology Oncology at [address] [phone] 12/17/2023 10:00 AM EDT Clinical Support Hematology/Oncology at [address] [phone] [facility] DR [place] [address] 12/24/2023 10:40 AM EST Office Visit Cardiology at [address] [phone] Cory Sellers MD [facility] [place] [address] 12/30/2023 9:00 AM EST Office Visit Hematology/Oncology at [address] [phone] Antonio Brownlee MD [facility] [place] [address] Fani Haskins APRN [address] [place] [address] DR HEMATOLOGY [place] [address] 12/30/2023 9:30 AM EST Infusion Hematology Oncology at [address] [phone] 04/04/2024 9:45 AM EST TH Visit (TeleHealth) Radiation Oncology at [address] [phone] Adrienne Singh PA [facility] DR [place] [address] documented as of this encounter Visit Diagnoses Not on filedocumented in this encounter Care Teams Bending Frame Operator Relationship Specialty Start Date End Date Jez Vance MD [address] [place] [address] PCP - General 01/07/10 documented as of this encounter
--- OUTSIDE RECORDS SUMMARY | 2023-12-17 01:48 | XMS_ITS | Encounter Summary ---
Author Organization [facility] Address One [facility] [place] [address] Care Team Providers Care Slide Attendant Name Role Phone Jez Vance MD Primary Care Provider +1 [phone] Encounter Details Date Type Department Care Team (Late st Contact Info) Description 11/06/2022 7:55 AM EDT Office Visit Radiation Oncology at [address] [phone] Toro Hayes MD [address] [place] [address] [place] [address] Malignant neoplasm of prostate Social [...] from the original note were not included. [facility] Medicine Radiation Oncology Radiation Oncology [...] check. PSA recheck at end of treatment ([facility] or [facility]) No orders of the defined types were placed in this encounter. National Cancer [place] (NCI) Comprehensive Cancer Center [employer] Commission on Cancer (ACS [place]err[place]) Accredited Cancer Program [employer] (ACR) Accredited Radiation Oncology Program documented in this encounter Plan of Treatment Upcoming Encounters Date Type Department Care Team (Late st Contact Info) Description 12/17/2023 8:30 AM EDT Office Visit Hematology/Oncology at [address] [phone] Antonio Brownlee MD [facility] [place] [address] Fani Haskins APRN [address] [place] [address] DR HEMATOLOGY AND ONCOLOGY [place], [place] [id number] 12/17/2023 9:00 AM EDT Infusion Hematology Oncology at [address] [phone] 12/17/2023 10:00 AM EDT Clinical Support Hematology/Oncology at [address] [phone] [facility] [place] [address] 12/24/2023 10:40 AM EST Office Visit Cardiology at [address] [phone] Cory Sellers MD [facility] [place] [address] 12/30/2023 9:00 AM EST Office Visit Hematology/Oncology at [address] [phone] Antonio Brownlee MD [facility] [place] [address] Fani Haskins CHANNEL MAN [address] [place] [address] DR HEMATOLOGY AND ONCOLOGY [place], [place] [address] 12/30/2023 9:30 AM EST Infusion Hematology Oncology at [address] [phone] 04/04/2024 9:45 AM EST TH Visit (TeleHealth) Radiation Oncology at [address] [phone] Adrienne Singh PA [facility] DR [place] [address] documented as of this encounter Visit Diagnoses Diagnosis Malignant neoplasm of prostate Malignant neoplasm of head of pancreas documented in this encounter Care Teams Slide Attendant Relationship Specialty Start Date End Date Jez Vance MD [address] [place] [address] PCP - General 01/07/10 documented as of this encounter
--- OUTSIDE RECORDS SUMMARY | 2023-12-17 01:48 | XMS_ITS | Encounter Summary ---
Author Organization [facility] Address One [facility] [place] [address] Care Team Providers Care Sausage Grinder Name Role Phone Jez Vance MD Primary Care Provider +1 [phone] Encounter Details Date Type Department Care Team [...] 8:30 AM EDT Office Visit Hematology/Oncology at [address] [phone] Antonio Brownlee MD [facility] [place] [address] Fani Haskins APRN [address] [place] [address] DR HEMATOLOGY AND ONCOLOGY [place], [place] [id number] 12/17/2023 9:00 AM EDT Infusion Hematology Oncology at [address] [phone] 12/17/2023 10:00 AM EDT Clinical Support Hematology/Oncology at [address] [phone] [facility] DR [place] [address] 12/24/2023 10:40 AM EST Office Visit Cardiology at [address] [phone] Cory Sellers MD [facility] [place] [address] 12/30/2023 9:00 AM EST Office Visit Hematology/Oncology at [address] [phone] Antonio Brownlee MD [facility] [place] [address] Fani Haskins APRN [address] [place] [address] [place] [address] 12/30/2023 9:30 AM EST Infusion Hematology Oncology at [address] [phone] 04/04/2024 9:45 AM EST TH Visit (TeleHealth) Radiation Oncology at [address] [phone] Adrienne Singh PA [facility] DR [place] [address] documented as of this encounter Visit Diagnoses Not on filedocumented in this encounter Care Teams Sausage Grinder Relationship Specialty Start Date End Date Jez Vance MD [address] [place] [address] PCP - General 01/07/10 documented as of this encounter
--- OUTSIDE RECORDS SUMMARY | 2023-12-17 01:48 | XMS_ITS | Encounter Summary ---
Author Organization [facility] Address One [facility] [place] [address] Care Team Providers Care Teacher'S Aide Name Role Phone Jez Vance MD Primary Care Provider +1 [phone] Encounter Details Date Type Department Care Team [...] AM EDT Office Visit Hematology/Oncology at [address] [phone] Antonio Brownlee MD [facility] [place] [address] Fani Haskins APRN [address] [place] [address] DR HEMATOLOGY AND ONCOLOGY [place], [place] [id number] 12/17/2023 9:00 AM EDT Infusion Hematology Oncology at [address] [phone] 12/17/2023 10:00 AM EDT Clinical Support Hematology/Oncology at [address] [phone] [facility] DR [place] [address] 12/24/2023 10:40 AM EST Office Visit Cardiology at [address] [phone] Cory Sellers MD [facility] [place] [address] 12/30/2023 9:00 AM EST Office Visit Hematology/Oncology at [address] [phone] Antonio Brownlee MD [facility] [place] [address] Fani Haskins APRN [address] [place] [address] DR HEMATOLOGY [place] [address] 12/30/2023 9:30 AM EST Infusion Hematology Oncology at [address] [phone] 04/04/2024 9:45 AM EST TH Visit (TeleHealth) Radiation Oncology at [address] [phone] Adrienne Singh PA [facility] DR [place] [address] documented as of this encounter Visit Diagnoses Not on filedocumented in this encounter Care Teams Teacher'S Aide Relationship Specialty Start Date End Date Jez Vance MD [address] [place] [address] PCP - General 01/07/10 documented as of this encounter
--- OUTSIDE RECORDS SUMMARY | 2023-12-17 01:48 | XMS_ITS | Encounter Summary ---
Author Organization [facility] Address One [facility] [place] [address] Care Team Providers Care Fire Alarm Repairer Name Role Phone Jez Vance MD Primary Care Provider +1 [phone] Encounter Details Date Type Department Care Team [...] AM EDT Office Visit Hematology/Oncology at [address] [phone] Antonio Brownlee MD [facility] [place] [address] Fani Haskins APRN [address] [place] [address] DR HEMATOLOGY AND ONCOLOGY [place], [place] [id number] 12/17/2023 9:00 AM EDT Infusion Hematology Oncology at [address] [phone] 12/17/2023 10:00 AM EDT Clinical Support Hematology/Oncology at [address] [phone] [facility] DR HEMATOLOGY [place] [address] 12/24/2023 10:40 AM EST Office Visit Cardiology at [address] [phone] Cory Sellers MD [facility] [place] [address] 12/30/2023 9:00 AM EST Office Visit Hematology/Oncology at [address] [phone] Antonio Brownlee MD [facility] [place] [address] Fani Haskins APRN [address] [place] [address] DR HEMATOLOGY [place] [address] 12/30/2023 9:30 AM EST Infusion Hematology Oncology at [address] [phone] 04/04/2024 9:45 AM EST TH Visit (TeleHealth) Radiation Oncology at [address] [phone] Adrienne Singh PA [facility] DR HEMATOLOGY [place] [address] documented as of this encounter Visit Diagnoses Not on filedocumented in this encounter Care Teams Fire Alarm Repairer Relationship Specialty Start Date End Date Jez Vance MD [address] [place] [address] PCP - General 01/07/10 documented as of this encounter
--- OUTSIDE RECORDS SUMMARY | 2023-12-17 01:48 | XMS_ITS | Encounter Summary ---
Author Organization [facility] Address One [facility] [place] [address] Care Team Providers Care Lung Splitter Name Role Phone Jez Vance MD Primary Care Provider +1 [phone] Encounter Details Date Type Department Care Team (Late st Contact Info) Description 10/30/2022 8:55 AM EDT Office Visit Radiation Oncology at [address] [phone] Toro Hayes MD [address] [place] [address] [place] [address] Malignant neoplasm of prostate Social [...] from the original note were not included. [facility] Medicine Radiation Oncology Radiation Oncology On-treatment [...] on 12/04/22 so thathe can go to [place] for the winter. LUTS Discontinue Cialis and begin Flomax 0.4mg qhs (sent to pharmacy). NSAIDS prn. Will reassess next week. Followup: Return to clinic next week for on treatment check. PSA recheck at end of treatment ([facility] or [facility]) No orders of the defined types were placed in this encounter. National Cancer [place] (NCI) Comprehensive Cancer Center [place] [employer] Commission on Cancer (ACS [place]err[place]) Accredited Cancer Program [place] [employer] (ACR) Accredited Radiation Oncology [...] mgmt per above. Toro Hayes MD, MS Wood Finisher Apprentice Radiation Oncology documented in this encounter Plan of Treatment Upcoming Encounters Date Type Department Care Team (Late st Contact Info) Description 12/17/2023 8:30 AM EDT Office Visit Hematology/Oncology at [address] [phone] Antonio Brownlee MD [facility] [place] [address] Fani Haskins APRN [address] [place] [address] [place] [address] 12/17/2023 9:00 AM EDT Infusion Hematology Oncology at [address] [phone] 12/17/2023 10:00 AM EDT Clinical Support Hematology/Oncology at [address] [phone] [facility] DR [place] [address] 12/24/2023 10:40 AM EST Office Visit Cardiology at [address] [phone] Cory Sellers MD [facility] [place] [address] 12/30/2023 9:00 AM EST Office Visit Hematology/Oncology at [address] [phone] Antonio Brownlee MD [facility] [place] [address] Fani Haskins [address] HEMATOLOGY AND ONCOLOGY [place], [place] [id number] 12/30/2023 9:30 AM EST Infusion Hematology Oncology at [address] [phone] 04/04/2024 9:45 AM EST TH Visit (TeleHealth) Radiation Oncology at [address] [phone] Adrienne Singh PA [facility] DR [place] [address] documented as of this encounter Visit Diagnoses Diagnosis Malignant neoplasm of prostate Malignant neoplasm of head of pancreas documented in this encounter Care Teams Lung Splitter Relationship Specialty Start Date End Date Jez Vance MD [address] [place] [address] PCP - General 01/07/10 documented as of this encounter
--- OUTSIDE RECORDS SUMMARY | 2023-12-17 01:48 | XMS_ITS | Encounter Summary ---
Author Organization [facility] Address One [facility] [place] [address] Care Team Providers Care Hosiery Operator Name Role Phone Jez Vance MD Primary Care Provider +1 [phone] Encounter Details Date Type Department Care Team [...] AM EDT Office Visit Hematology/Oncology at [address] [phone] Antonio Brownlee MD [facility] [place] [address] Fani Haskins APRN [address] [place] [address] DR HEMATOLOGY AND ONCOLOGY [place], [place] [phone] 12/17/2023 9:00 AM EDT Infusion Hematology Oncology at [address] [phone] 12/17/2023 10:00 AM EDT Clinical Support Hematology/Oncology at [address] [phone] [facility] DR HEMATOLOGY [place] [address] 12/24/2023 10:40 AM EST Office Visit Cardiology at [address] [phone] Cory Sellers MD [facility] [place] [address] 12/30/2023 9:00 AM EST Office Visit Hematology/Oncology at [address] [phone] Antonio Brownlee MD [facility] [place] [place] [address] Fani Haskins APRN [address] [place] [address] DR [place] [address] 12/30/2023 9:30 AM EST Infusion Hematology Oncology at [address] [phone] 04/04/2024 9:45 AM EST TH Visit (TeleHealth) Radiation Oncology at [address] [phone] Adrienne Singh PA [facility] DR HEMATOLOGY [place] [address] documented as of this encounter Visit Diagnoses Not on filedocumented in this encounter Care Teams Hosiery Operator Relationship Specialty Start Date End Date Jez Vance MD [address] [place] [address] PCP - General 01/07/10 documented as of this encounter
--- OUTSIDE RECORDS SUMMARY | 2023-12-17 01:48 | XMS_ITS | Encounter Summary ---
Author Organization [facility] Address [facility] [place] [address] Care Team Providers Care Hat Forming Machine Operator Name Role Phone Jez Vance MD Primary Care Provider +1 -[phone] Encounter Details Date Type Department Care Team (Late st Contact Info) Description 09/09/2022 3:00 PM EDT Telephone Radiation Oncology at [address] [phone] Rad NurseSt Jauregui Social History Tobacco Use Types Packs/Day [...] AM EDT Office Visit Hematology/Oncology at [address] [phone] Antonio Brownlee MD [facility] [place] [address] Fani Haskins APRN [address] [place] [address] DR HEMATOLOGY AND ONCOLOGY [place], [place] [address] 12/17/2023 9:00 AM EDT Infusion Hematology Oncology at [address] [phone] 12/17/2023 10:00 AM EDT Clinical Support Hematology/Oncology at [address] [phone] [facility] [place] [address] 12/24/2023 10:40 AM EST Office Visit Cardiology at [address] [phone] Cory Sellers MD [facility] [place] [address] 12/30/2023 9:00 AM EST Office Visit Hematology/Oncology at [address] [phone] Antonio Brownlee MD [facility] [place] [address] Fani Haskins TRAINING AND DEVELOPMENT SPECIALIST [address] [place] [address] DR HEMATOLOGY AND ONCOLOGY [place], [place] [id number] 12/30/2023 9:30 AM EST Infusion Hematology Oncology at [address] [phone] 04/04/2024 9:45 AM EST TH Visit (TeleHealth) Radiation Oncology at [address] [phone] Adrienne Singh PA [facility] DR [place] [address] documented as of this encounter Visit Diagnoses Not on filedocumented in this encounter Care Teams Hat Forming Machine Operator Relationship Specialty Start Date End Date Jez Vance MD [address] [place] [address] PCP - General 01/07/10 documented as of this encounter
--- OUTSIDE RECORDS SUMMARY | 2023-12-17 01:48 | XMS_ITS | Encounter Summary ---
Author Organization [facility] Address One [facility] [place] [address] Care Team Providers Care Work Order Clerk Name Role Phone Jez Vance MD Primary Care Provider +1 -[phone] Encounter Details Date Type Department Care Team [...] AM EDT Office Visit Hematology/Oncology at [address] [phone] Antonio Brownlee MD [facility] [place] [address] Fani Haskins APRN [address] [place] [address] DR HEMATOLOGY AND ONCOLOGY [place], [place] [id number] 12/17/2023 9:00 AM EDT Infusion Hematology Oncology at [address] [phone] 12/17/2023 10:00 AM EDT Clinical Support Hematology/Oncology at [address] [phone] [facility] DR [place] [address] 12/24/2023 10:40 AM EST Office Visit Cardiology at [address] [phone] Cory Sellers MD [facility] [place] [address] 12/30/2023 9:00 AM EST Office Visit Hematology/Oncology at [address] [phone] Antonio Brownlee MD [facility] [place] [address] Fani Haskins APRN [address] [place] [address] DR HEMATOLOGY [place] [address] 12/30/2023 9:30 AM EST Infusion Hematology Oncology at [address] [phone] 04/04/2024 9:45 AM EST TH Visit (TeleHealth) Radiation Oncology at [address] [phone] Adrienne Singh PA [facility] DR [place] [address] documented as of this encounter Visit Diagnoses Not on filedocumented in this encounter Care Teams Work Order Clerk Relationship Specialty Start Date End Date Jez Vance MD [address] [place] [address] PCP - General 01/07/10 documented as of this encounter
--- OUTSIDE RECORDS SUMMARY | 2023-12-17 01:48 | XMS_ITS | Encounter Summary ---
Author Organization [facility] Address One [facility] [place] [address] Care Team Providers Care Physiological Chemist Name Role Phone Jez Vance MD Primary Care Provider +1 -[phone] Encounter Details Date Type Department Care Team (Late st Contact Info) Description 10/07/2022 Notes Only Radiation Oncology at [address] [phone] Hiral Roger, [facility] OFFICE OF CARE MANAGEMENT Social History Tobacco [...] of this encounter Progress Notes * Hiral Roger MSW - 10/07/2022 11:41 AM EDT Reason for Referral: Brief assessment of social and emotional needs. Met with Benny after his sim today to introduce myself and role of social media sr strategy manager to assess/address barriers to getting to and through treatments; address support needs and connect with community services and resources as needed. Family/Social Supports: Benny identified his as his primary support. They have a daughter and a son. Their daughter is [facility] and their son is in [place]. He indicated he has good supports. Living Situation/Daily Activities/Transportation: Benny manages his daily chores and activities. Heis expecting 28 RT treatments. He does not expect any issues with transportation. Work/Finances/Insurance: Benny is retired. He has Medicare and [employer] for insurance. He did not have any [...] assessment Supportive Counseling Plan: Informed pt of [facility] availability and contact information. Will follow to assess/address psychosocial needs. IZA De Paz, CENTRIFUGAL STATION OPERATOR, OSW-C Signal Processing Engineer [facility] documented in this encounter Plan of Treatment Upcoming Encounters Date Type Department Care Team (Late st Contact Info) Description 12/17/2023 8:30 AM EDT Office Visit Hematology/Oncology at [address] [phone] Antonio Brownlee MD [facility] [place] [place] [address] Fani Haskins [address] HEMATOLOGY AND ONCOLOGY [place], [place] [id number] 12/17/2023 9:00 AM EDT Infusion Hematology Oncology at [address] [phone] 12/17/2023 10:00 AM EDT Clinical Support Hematology/Oncology at [address] [phone] [facility] DR HEMATOLOGY [place] [address] 12/24/2023 10:40 AM EST Office Visit Cardiology at [address] [phone] Cory Sellers MD [facility] [place] [address] 12/30/2023 9:00 AM EST Office Visit Hematology/Oncology at [address] [phone] Antonio Brownlee MD [facility] [place] [address] Fani Haskins [address] HEMATOLOGY [place] [address] 12/30/2023 9:30 AM EST Infusion Hematology Oncology at [address] [phone] 04/04/2024 9:45 AM EST TH Visit (TeleHealth) Radiation Oncology at [address] [phone] Adrienne Singh PA [facility] DR HEMATOLOGY [place] [address] documented as of this encounter Visit Diagnoses Not on filedocumented in this encounter Care Teams Physiological Chemist Relationship Specialty Start Date End Date Jez Vance MD [address] [place] [address] PCP - General 01/07/10 documented as of this encounter
--- OUTSIDE RECORDS SUMMARY | 2023-12-17 01:48 | XMS_ITS | Encounter Summary ---
Author Organization [facility] Address One [facility] [place] [address] Care Team Providers Care Senior Tech Manufacturing Engineering Name Role Phone Jez Vance MD Primary Care Provider +1 [phone] Encounter Details Date Type Department Care Team [...] AM EDT Office Visit Hematology/Oncology at [address] [phone] Antonio Brownlee MD [facility] [place] [address] Fani Haskins APRN [address] [place] [address] DR HEMATOLOGY AND ONCOLOGY [place], [place] [phone] 12/17/2023 9:00 AM EDT Infusion Hematology Oncology at [address] [phone] 12/17/2023 10:00 AM EDT Clinical Support Hematology/Oncology at [address] [phone] [facility] [place] [address] 12/24/2023 10:40 AM EST Office Visit Cardiology at [address] [phone] Cory Sellers MD [facility] [place] [address] 12/30/2023 9:00 AM EST Office Visit Hematology/Oncology at [address] [phone] Antonio Brownlee MD [facility] [place] [address] Fani Haskins APRN [address] [place] [address] DR HEMATOLOGY [place] [address] 12/30/2023 9:30 AM EST Infusion Hematology Oncology at [address] [phone] 04/04/2024 9:45 AM EST TH Visit (TeleHealth) Radiation Oncology at [address] [phone] Adrienne Singh PA [facility] DR [place] [address] documented as of this encounter Visit Diagnoses Not on filedocumented in this encounter Care Teams Senior Tech Manufacturing Engineering Relationship Specialty Start Date End Date Jez Vance MD [address] [place] [address] PCP - General 01/07/10 documented as of this encounter
--- OUTSIDE RECORDS SUMMARY | 2023-12-17 01:48 | XMS_ITS | Encounter Summary ---
Author Organization Formerly [facility], [facility] Address [facility] [place] [address] Care Team Providers Care Universal Branch Consultant Name Role Phone Jez Vance MD Primary Care Provider +1 -[phone] Reason for Visit * Reason Comments Injections Lupron * Treatment/Therapy Plan Authorization (Routine) - Closed Specialty Diagnoses / Procedures Referred By Deena yao Referred To Contact Radiation Oncology / Hematology and Oncology Diagnoses Malignant neoplasm of prostate Procedures TC LEUPROLIDE ACETATE 7.5MG, FOR DEPOST SUSPENSION (LUPRON DEPOT) [id number] LUPRON DEPOT Toro Hayes MD [address] [place] [address] [place] [address] Toro Hayes MD [address] [place] [address] [place] [address] Referral ID Status Reason Start Date Expiration Date Visits Re quested Visits Authorized [id number] Closed 08/06/2022 08/06/2023 1 99 Encounter Details Date Type Department Care Team (Late st Contact Info) Description 09/10/2022 9:00 AM EDT Infusion Hematology Oncology at [address] [phone] Malignant neoplasm of prostate Social History Tobacco [...] AM EDT Office Visit Hematology/Oncology at [address] [phone] Antonio Brownlee MD [facility] [place] [address] Fani Haskins APRN [address] [place] [place] [address] DR [place] [address] 12/17/2023 9:00 AM EDT Infusion Hematology Oncology at [address] [phone] 12/17/2023 10:00 AM EDT Clinical Support Hematology/Oncology at [address] [phone] [facility] DR HEMATOLOGY [place] [address] 12/24/2023 10:40 AM EST Office Visit Cardiology at [address] [phone] Cory Sellers MD [facility] [place] [address] 12/30/2023 9:00 AM EST Office Visit Hematology/Oncology at [address] [phone] Antonio Brownlee MD [facility] [place] [address] Fani Haskins APRN [address] [place] [address] DR HEMATOLOGY AND ONCOLOGY [place], [place] [id number] 12/30/2023 9:30 AM EST Infusion Hematology Oncology at [address] [phone] 04/04/2024 9:45 AM EST TH Visit (TeleHealth) Radiation Oncology at [address] [phone] Adrienne Singh PA [facility] DR HEMATOLOGY [place] [address] documented as of this encounter Visit Diagnoses [...] Gluteal documented in this encounter Care Teams Universal Branch Consultant Relationship Specialty Start Date End Date Jez Vance MD [address] [place], [place] [id number] PCP - General 01/07/10 documented as of this encounter
--- OUTSIDE RECORDS SUMMARY | 2023-12-17 01:48 | XMS_ITS | Encounter Summary ---
Author Organization [facility] Address One [facility] [place] [address] Care Team Providers Care Cattle Inspector Name Role Phone Jez Vance MD Primary Care Provider +1 -[phone] Encounter Details Date Type Department Care Team [...] AM EDT Office Visit Hematology/Oncology at [address] [phone] Antonio Brownlee MD [facility] [place] [address] Fani Haskins APRN [address] [place] [address] DR HEMATOLOGY AND ONCOLOGY [place], [place] [id number] 12/17/2023 9:00 AM EDT Infusion Hematology Oncology at [address] [phone] 12/17/2023 10:00 AM EDT Clinical Support Hematology/Oncology at [address] [phone] [facility] [place] [address] 12/24/2023 10:40 AM EST Office Visit Cardiology at [address] [phone] Cory Sellers MD [facility] [place] [address] 12/30/2023 9:00 AM EST Office Visit Hematology/Oncology at [address] [phone] Antonio Brownlee MD [facility] [place] [address] Fani Haskins APRN [address] [place] [address] DR HEMATOLOGY [place] [address] 12/30/2023 9:30 AM EST Infusion Hematology Oncology at [address] [phone] 04/04/2024 9:45 AM EST TH Visit (TeleHealth) Radiation Oncology at [address] [phone] Adrienne Singh PA [facility] [place] [address] documented as of this encounter Visit Diagnoses Not on filedocumented in this encounter Care Teams Cattle Inspector Relationship Specialty Start Date End Date Jez Vance MD [address] [place] [address] PCP - General 01/07/10 documented as of this encounter
--- OUTSIDE RECORDS SUMMARY | 2023-12-17 01:48 | XMS_ITS | Encounter Summary ---
Author Organization Formerly [facility] Address One [facility] [place] [address] Care Team Providers Care Hosiery Pairer Name Role Phone Jez Vance MD Primary Care Provider +1 -[phone] Encounter Details Date Type Department Care Team [...] AM EDT Office Visit Hematology/Oncology at [address] [phone] Antonio Brownlee MD [facility] [place] [address] Fani Haskins APRN [address] [place] [address] DR HEMATOLOGY AND ONCOLOGY [place], [place] [id number] 12/17/2023 9:00 AM EDT Infusion Hematology Oncology at [address] [phone] 12/17/2023 10:00 AM EDT Clinical Support Hematology/Oncology at [address] [phone] [facility] DR [place] [address] 12/24/2023 10:40 AM EST Office Visit Cardiology at [address] [phone] Cory Sellers MD [facility] [place] [address] 12/30/2023 9:00 AM EST Office Visit Hematology/Oncology at [address] [phone] Antonio Brownlee MD [facility] [place] [address] Fani Haskins APRN [address] [place] [address] DR [place] [address] 12/30/2023 9:30 AM EST Infusion Hematology Oncology at [address] [phone] 04/04/2024 9:45 AM EST TH Visit (TeleHealth) Radiation Oncology at [address] [phone] Adrienne Singh PA [facility] DR [place] [address] documented as of this encounter Visit Diagnoses Not on filedocumented in this encounter Care Teams Hosiery Pairer Relationship Specialty Start Date End Date Jez Vance MD [address] [place] [address] PCP - General 01/07/10 documented as of this encounter
--- OUTSIDE RECORDS SUMMARY | 2023-12-17 01:48 | XMS_ITS | Encounter Summary ---
Author Organization [facility] Address One [facility] [place] [address] Care Team Providers Care Jogger Operator Name Role Phone Jez Vance MD Primary Care Provider +1 -[phone] Encounter Details Date Type Department Care Team [...] AM EDT Office Visit Hematology/Oncology at [address] [phone] Antonio Brownlee MD [facility] [place] [address] Fani Haskins APRN [address] [place] [address] DR HEMATOLOGY AND ONCOLOGY [place], [place] [phone] 12/17/2023 9:00 AM EDT Infusion Hematology Oncology at [address] [phone] 12/17/2023 10:00 AM EDT Clinical Support Hematology/Oncology at [address] [phone] [facility] DR [place] [address] 12/24/2023 10:40 AM EST Office Visit Cardiology at [address] [phone] Cory Sellers MD [facility] [place] [address] 12/30/2023 9:00 AM EST Office Visit Hematology/Oncology at [address] [phone] Antonio Brownlee MD [facility] [place] [address] Fani Haskins APRN [address] [place] [address] DR HEMATOLOGY [place] [address] 12/30/2023 9:30 AM EST Infusion Hematology Oncology at [address] [phone] 04/04/2024 9:45 AM EST TH Visit (TeleHealth) Radiation Oncology at [address] [phone] Adrienne Singh PA [facility] DR [place] [address] documented as of this encounter Visit Diagnoses Not on filedocumented in this encounter Care Teams Jogger Operator Relationship Specialty Start Date End Date Jez Vance MD [address] [place] [address] PCP - General 01/07/10 documented as of this encounter
--- OUTSIDE RECORDS SUMMARY | 2023-12-17 01:48 | XMS_ITS | Encounter Summary ---
Author Organization [facility] Address [facility] [place] [address] Care Team Providers Care Pest Control Service Sales Agent Name Role Phone Jez Vance MD Primary Care Provider +1 -[phone] Reason for Visit * Reason Comments Injections * Treatment/Therapy Plan Authorization (Routine) - Closed Specialty Diagnoses / Procedures Referred By Deena yao Referred To Contact Radiation Oncology / Hematology and Oncology Diagnoses Malignant neoplasm of prostate Procedures TC LEUPROLIDE ACETATE 7.5MG, FOR DEPOST SUSPENSION (LUPRON DEPOT) [id number] LUPRON DEPOT Toro Hayes MD [address] [place] [address] [place] [address] Toro Hayes MD [address] [place] [address] [place] [address] Referral ID Status Reason Start Date Expiration Date Visits Re quested Visits Authorized [id number] Closed 08/06/2022 08/06/2023 1 99 Encounter Details Date Type Department Care Team (Late st Contact Info) Description 10/08/2022 8:30 AM EDT Infusion Hematology Oncology at [address] [phone] Malignant neoplasm of prostate Social History Tobacco [...] AM EDT Office Visit Hematology/Oncology at [address] [phone] Antonio Brownlee MD [facility] [place] [address] Fani Haskins APRN [address] [place] [address] DR HEMATOLOGY [place] [address] 12/17/2023 9:00 AM EDT Infusion Hematology Oncology at [address] [phone] 12/17/2023 10:00 AM EDT Clinical Support Hematology/Oncology at [address] [phone] [facility] DR [place] [address] 12/24/2023 10:40 AM EST Office Visit Cardiology at [address] [phone] Cory Sellers MD [facility] [place] [place] [address] 12/30/2023 9:00 AM EST Office Visit Hematology/Oncology at [address] [phone] Antonio Brownlee MD [facility] [place] [address] Fani Haskins APRN [address] [place] [address] DR HEMATOLOGY AND ONCOLOGY [place], [place] [address] 12/30/2023 9:30 AM EST Infusion Hematology Oncology at [address] [phone] 04/04/2024 9:45 AM EST TH Visit (TeleHealth) Radiation Oncology at [address] [phone] Adrienne Singh PA [facility] [place] [address] documented as of this encounter Visit Diagnoses [...] mg documented in this encounter Care Teams Pest Control Service Sales Agent Relationship Specialty Start Date End Date Jez Vance MD [address] [place], [place] [id number] PCP - General 01/07/10 documented as of this encounter
--- OUTSIDE RECORDS SUMMARY | 2023-12-17 01:48 | XMS_ITS | Encounter Summary ---
Author Organization [facility] Address One [facility] [place] [address] Care Team Providers Care Pan Cleaner Name Role Phone Jez Vance MD Primary Care Provider +1 -[phone] Encounter Details Date Type Department Care Team [...] AM EDT Office Visit Hematology/Oncology at [address] [phone] Antonio Brownlee MD [facility] [place] [address] Fani Haskins APRN [address] [place] [address] DR HEMATOLOGY AND ONCOLOGY [place], [place] [id number] 12/17/2023 9:00 AM EDT Infusion Hematology Oncology at [address] [phone] 12/17/2023 10:00 AM EDT Clinical Support Hematology/Oncology at [address] [phone] [facility] DR HEMATOLOGY [place] [address] 12/24/2023 10:40 AM EST Office Visit Cardiology at [address] [phone] Cory Sellers MD [facility] [address] 12/30/2023 9:00 AM EST Office Visit Hematology/Oncology at [address] [phone] Antonio Brownlee MD [facility] [place] [address] Fani Haskins APRN [address] [place] [address] DR HEMATOLOGY [place] [address] 12/30/2023 9:30 AM EST Infusion Hematology Oncology at [address] [phone] 04/04/2024 9:45 AM EST TH Visit (TeleHealth) Radiation Oncology at [address] [phone] Adrienne iSngh PA [facility] DR HEMATOLOGY [place] [address] documented as of this encounter Visit Diagnoses Not on filedocumented in this encounter Care Teams Pan Cleaner Relationship Specialty Start Date End Date Jez Vance MD [address] [place] [address] PCP - General 01/07/10 documented as of this encounter
--- OUTSIDE RECORDS SUMMARY | 2023-12-17 01:48 | XMS_ITS | Encounter Summary ---
Author Organization [facility] Address One [facility] [place] [address] Care Team Providers Care Outreach Assistant Name Role Phone Jez Vance MD Primary Care Provider +1 -[phone] Encounter Details Date Type Department Care Team [...] AM EDT Office Visit Hematology/Oncology at [address] [phone] Antonio Brownlee MD [facility] [place] [address] Fani Haskins APRN [address] [place] [address] DR HEMATOLOGY AND ONCOLOGY [place], [place] [id number] 12/17/2023 9:00 AM EDT Infusion Hematology Oncology at [address] [phone] 12/17/2023 10:00 AM EDT Clinical Support Hematology/Oncology at [address] [phone] [facility] DR HEMATOLOGY [place] [address] 12/24/2023 10:40 AM EST Office Visit Cardiology at [address] [phone] Cory Sellers MD [facility] [place] [address] 12/30/2023 9:00 AM EST Office Visit Hematology/Oncology at [address] [phone] Antonio Brownlee MD [facility] [place] [address] Fani Haskins APRN [address] [place] [address] DR HEMATOLOGY [place] [address] 12/30/2023 9:30 AM EST Infusion Hematology Oncology at [address] [phone] 04/04/2024 9:45 AM EST TH Visit (TeleHealth) Radiation Oncology at [address] [phone] Adrienne Singh PA [facility] DR HEMATOLOGY [place] [address] documented as of this encounter Visit Diagnoses Not on filedocumented in this encounter Care Teams Outreach Assistant Relationship Specialty Start Date End Date Jez Vance MD [address] [place] [address] PCP - General 01/07/10 documented as of this encounter
--- OUTSIDE RECORDS SUMMARY | 2023-12-17 01:48 | XMS_ITS | Encounter Summary ---
Author Organization [facility] Address One [facility] [place] [address] Care Team Providers Care Aircraft Quality Control Inspector Name Role Phone Jez Vance MD Primary Care Provider +1 -[phone] Encounter Details Date Type Department Care Team [...] AM EDT Office Visit Hematology/Oncology at [address] [phone] Antonio Brownlee MD [facility] [place] [address] Fani Haskins APRN [address] [place] [address] DR HEMATOLOGY AND ONCOLOGY [place], [place] [id number] 12/17/2023 9:00 AM EDT Infusion Hematology Oncology at [address] [phone] 12/17/2023 10:00 AM EDT Clinical Support Hematology/Oncology at [address] [phone] [facility] DR [place] [address] 12/24/2023 10:40 AM EST Office Visit Cardiology at [address] [phone] Cory Sellers MD [facility] [place] [address] 12/30/2023 9:00 AM EST Office Visit Hematology/Oncology at [address] [phone] Antonio Brownlee MD [facility] [place] [address] Fani Haskins APRN [address] [place] [address] DR HEMATOLOGY [place] [address] 12/30/2023 9:30 AM EST Infusion Hematology Oncology at [address] [phone] 04/04/2024 9:45 AM EST TH Visit (TeleHealth) Radiation Oncology at [address] [phone] Adrienne Singh PA [facility] DR [place] [address] documented as of this encounter Visit Diagnoses Not on filedocumented in this encounter Care Teams Aircraft Quality Control Inspector Relationship Specialty Start Date End Date Jez Vance MD [address] [place] [address] PCP - General 01/07/10 documented as of this encounter
--- OUTSIDE RECORDS SUMMARY | 2023-12-17 01:48 | XMS_ITS | Encounter Summary ---
Author Organization [facility] Address One [facility] [place] [address] Care Team Providers Care Trenching Machine Operator Name Role Phone Jez Vance MD Primary Care Provider +1 -[phone] Encounter Details Date Type Department Care Team (Late st Contact Info) Description 10/23/2022 8:55 AM EDT Office Visit Radiation Oncology at [address] [phone] Toro Hayes MD [address] [place] [address] [place] [address] Malignant neoplasm of prostate Social [...] from the original note were not included. [facility] Medicine Radiation Oncology Radiation Oncology On-treatment Visit [...] 12/04/22 [place] [facility] recheck at end of treatment ([facility]) Followup: Return to clinic next week for on treatment check. No orders of the defined types were placed in this encounter. National Cancer [place] (NCI) Comprehensive Cancer Center [employer] Commission on Cancer (ACS [place]) Accredited Cancer Program [employer] (ACR) Accredited Radiation Oncology [...] RT without changes. Toro Hayes MD, MS System Validation Engineer Radiation Oncology documented in this encounter Plan of Treatment Upcoming Encounters Date Type Department Care Team (Late st Contact Info) Description 12/17/2023 8:30 AM EDT Office Visit Hematology/Oncology at [address] [phone] Antonio Brownlee MD [facility] [place] [address] Fani Haskins APRN [address] [place] [address] [place] [address] 12/17/2023 9:00 AM EDT Infusion Hematology Oncology at [address] [phone] 12/17/2023 10:00 AM EDT Clinical Support Hematology/Oncology at [address] [phone] [facility] DR [place] [address] 12/24/2023 10:40 AM EST Office Visit Cardiology at [address] [phone] Cory Sellers MD [facility] [place] [address] 12/30/2023 9:00 AM EST Office Visit Hematology/Oncology at [address] [phone] Antonio Brownlee MD [facility] [place] [address] Fani Haskins APRN [address] [place] [address] DR HEMATOLOGY AND ONCOLOGY [place], [place] [id number] 12/30/2023 9:30 AM EST Infusion Hematology Oncology at [address] [phone] 04/04/2024 9:45 AM EST TH Visit (TeleHealth) Radiation Oncology at [address] [phone] Adrienne Singh PA [facility] DR [place] [address] documented as of this encounter Visit Diagnoses Diagnosis Malignant neoplasm of 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
--- OUTSIDE RECORDS SUMMARY | 2023-12-17 01:48 | XMS_ITS | Encounter Summary ---
Author Organization [facility] Address One [facility] [place] [address] Care Team Providers Care Driver License Examiner Name Role Phone Jez Vance MD Primary Care Provider +1 -[phone] Encounter Details Date Type Department Care Team [...] AM EDT Office Visit Hematology/Oncology at [address] [phone] Antonio Brownlee MD [facility] [place] [address] Fani Haskins APRN [address] [place] [address] DR HEMATOLOGY AND ONCOLOGY [place], [place] [id number] 12/17/2023 9:00 AM EDT Infusion Hematology Oncology at [address] [phone] 12/17/2023 10:00 AM EDT Clinical Support Hematology/Oncology at [address] [phone] [facility] DR [place] [address] 12/24/2023 10:40 AM EST Office Visit Cardiology at [address] [phone] Cory Sellers MD [facility] [place] [address] 12/30/2023 9:00 AM EST Office Visit Hematology/Oncology at [address] [phone] Antonio Brownlee MD [facility] [place] [address] Fani Haskins APRN [address] [place] [address] [place] [address] 12/30/2023 9:30 AM EST Infusion Hematology Oncology at [address] [phone] 04/04/2024 9:45 AM EST TH Visit (TeleHealth) Radiation Oncology at [address] [phone] Adrienne Singh PA [facility] DR [place] [address] documented as of this encounter Visit Diagnoses Not on filedocumented in this encounter Care Teams Driver License Examiner Relationship Specialty Start Date End Date Jez Vance MD [address] [place] [address] PCP - General 01/07/10 documented as of this encounter
--- OUTSIDE RECORDS SUMMARY | 2023-12-17 01:48 | XMS_ITS | Encounter Summary ---
Author Organization [facility] Address One [facility] [place] [address] Care Team Providers Care Mica Splitter Name Role Phone Jez Vance MD Primary Care Provider +1 -[phone] Encounter Details Date Type Department Care Team [...] AM EDT Office Visit Hematology/Oncology at [address] [phone] Antonio Brownlee MD [facility] [place] [address] Fani Haskins APRN [address] [place] [address] DR HEMATOLOGY AND ONCOLOGY [place], [place] [id number] 12/17/2023 9:00 AM EDT Infusion Hematology Oncology at [address] [phone] 12/17/2023 10:00 AM EDT Clinical Support Hematology/Oncology at [address] [phone] [facility] DR HEMATOLOGY [place] [address] 12/24/2023 10:40 AM EST Office Visit Cardiology at [address] [phone] Cory Sellers MD [facility] [place] [address] 12/30/2023 9:00 AM EST Office Visit Hematology/Oncology at [address] [phone] Antonio Brownlee MD [facility] [place] [address] Fani Haskins APRN [address] [place] [address] DR HEMATOLOGY [place] [address] 12/30/2023 9:30 AM EST Infusion Hematology Oncology at [address] [phone] 04/04/2024 9:45 AM EST TH Visit (TeleHealth) Radiation Oncology at [address] [phone] Adrienne Singh PA [facility] DR HEMATOLOGY [place] [address] documented as of this encounter Visit Diagnoses Not on filedocumented in this encounter Care Teams Mica Splitter Relationship Specialty Start Date End Date Jez Vance MD [address] [place] [address] PCP - General 01/07/10 documented as of this encounter
--- OUTSIDE RECORDS SUMMARY | 2023-12-17 01:48 | XMS_ITS | Encounter Summary ---
Author Organization [facility] Address One [facility] [place] [address] Care Team Providers Care Medical Facilities Section Director Name Role Phone Jez Vance MD Primary Care Provider +1 -[phone] Encounter Details Date Type Department Care Team (Late st Contact Info) Description 09/09/2022 Refill Radiation Oncology at [address] [phone] Alanis Meyer, RN Malignant neoplasm [...] No 08/06/2022 Housing Stability Vital Sign Answer Omrai e Recorded In the last 12 months, [...] Time: 11:30 Time of Procedure: 12:00 Location: [place], [place] Why Fiducial Placement or also known [...] will be done at : [ ] [facility] at the Radiation Oncology Department section 2K [ x ] [place], [place] [Date:10/07/2022 ] [Time: arrive at 10:30 ] For proper visualization of prostate, it is required that you have a moderately full bladder. This will require you to arrive 30 minutes before scheduled appointment and drink 2 glasses of water upon arrival. There are no restrictions with eating. How to reach us: [facility] [phone] For weekends and after hours: Call [facility] ask for the air pollution auditor radiation oncologist documented in this encounter Plan of Treatment Upcoming Encounters Date Type Department Care Team (Late st Contact Info) Description 12/17/2023 8:30 AM EDT Office Visit Hematology/Oncology at [address] [phone] Antonio Brownlee MD [facility] [place] [address] Fani Haskins APRN [address] [place] [address] DR HEMATOLOGY AND ONCOLOGY [place], [place] [address] 12/17/2023 9:00 AM EDT Infusion Hematology Oncology at [address] [phone] 12/17/2023 10:00 AM EDT Clinical Support Hematology/Oncology at [address] [phone] [facility] DR [place] [address] 12/24/2023 10:40 AM EST Office Visit Cardiology at [address] [phone] Cory Sellers MD [facility] [place] [address] 12/30/2023 9:00 AM EST Office Visit Hematology/Oncology at [address] [phone] Antonio Brownlee MD [facility] [place] [address] Fani Haskins CAREER TECHNICAL SUPERVISOR [address] [place] [address] DR HEMATOLOGY AND ONCOLOGY [place], [place] [id number] 12/30/2023 9:30 AM EST Infusion Hematology Oncology at [address] [phone] 04/04/2024 9:45 AM EST TH Visit (TeleHealth) Radiation Oncology at [address] [phone] Adrienne Singh PA [facility] DR [place] [address] documented as of this encounter Visit Diagnoses Diagnosis Malignant neoplasm of 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
--- OUTSIDE RECORDS SUMMARY | 2023-12-17 01:48 | XMS_ITS | Encounter Summary ---
Author Organization [facility] Address One [facility] [place] [address] Care Team Providers Care Rn Paralegal Name Role Phone Jez Vance MD Primary Care Provider +1 [phone] Encounter Details Date Type Department Care Team (Late st Contact Info) Description 11/25/2022 Notes Only Radiation Oncology at [address] [phone] Daina Montalvo RN Social History Tobacco Use Types Packs/Day [...] through Care Everywhere. * Self-Catheterization: Intermittent: Male (Macanese) documented in this encounter Progress Notes * [...] not need to continue to self-cath. Call [facility] with any further questions or concerns. [phone] and ask to speak with the Rad/Onc triage nurse. After hours, weekends, and holidays: [phone] and ask for the quotation clerk radiation oncologist. documented in this encounter Plan of Treatment Upcoming Encounters Date Type Department Care Team (Late st Contact Info) Description 12/17/2023 8:30 AM EDT Office Visit Hematology/Oncology at [address] [phone] Antonio Brownlee MD [facility] [place] [address] Fani Haskins APRN [address] [place] [address] DR HEMATOLOGY AND ONCOLOGY [place], [place] [address] 12/17/2023 9:00 AM EDT Infusion Hematology Oncology at [address] [phone] 12/17/2023 10:00 AM EDT Clinical Support Hematology/Oncology at [address] [phone] [facility] DR HEMATOLOGY [place] [address] 12/24/2023 10:40 AM EST Office Visit Cardiology at [address] [phone] Cory Sellers MD [facility] [place] [address] 12/30/2023 9:00 AM EST Office Visit Hematology/Oncology at [address] [phone] Antonio Brownlee MD [facility] [place] [place] [address] HEMATOLOGY AND ONCOLOGY [place], [place] [id number] 12/30/2023 9:30 AM EST Infusion Hematology Oncology at [address] [phone] 04/04/2024 9:45 AM EST TH Visit (TeleHealth) Radiation Oncology at [address] [phone] Adrienne Singh PA [facility] HEMATOLOGY [place] [address] documented as of this encounter Visit Diagnoses Not on filedocumented in this encounter Care Teams Rn Paralegal Relationship Specialty Start Date End Date Jez Vance MD [address] [place] [address] PCP - General 01/07/10 documented as of this encounter
--- OUTSIDE RECORDS SUMMARY | 2023-12-17 01:48 | XMS_ITS | Encounter Summary ---
Author Organization [facility] Address One [facility] [place] [address] Care Team Providers Care Surveillance Monitor Name Role Phone Jez Vance MD Primary Care Provider [phone] [phone] Encounter Details Date Type Department Care Team [...] AM EDT Office Visit Hematology/Oncology at [address] [phone] Antonio Brownlee MD [facility] [place] [address] Fani Haskins APRN [address] [place] [address] DR HEMATOLOGY AND ONCOLOGY [place], [place] [id number] 12/17/2023 9:00 AM EDT Infusion Hematology Oncology at [address] [phone] 12/17/2023 10:00 AM EDT Clinical Support Hematology/Oncology at [address] [phone] [facility] DR HEMATOLOGY [place] [address] 12/24/2023 10:40 AM EST Office Visit Cardiology at [address] [phone] Cory Sellers MD [facility] [address] 12/30/2023 9:00 AM EST Office Visit Hematology/Oncology at [address] [phone] Antonio Brownlee MD [facility] [place] [address] Fani Haskins APRN [address] [place] [address] DR [place] [address] 12/30/2023 9:30 AM EST Infusion Hematology Oncology at [address] [phone] 04/04/2024 9:45 AM EST TH Visit (TeleHealth) Radiation Oncology at [address] [phone] Adrienne Singh PA [facility] DR HEMATOLOGY [place] [address] documented as of this encounter Visit Diagnoses Not on filedocumented in this encounter Care Teams Surveillance Monitor Relationship Specialty Start Date End Date Jez Vance MD [address] [place] [address] PCP - General 01/07/10 documented as of this encounter
--- OUTSIDE RECORDS SUMMARY | 2023-12-17 01:48 | XMS_ITS | Encounter Summary ---
Author Organization [facility] Address One [facility] [place] [address] Care Team Providers Care Salesperson [employer] Name Role Phone Jez Vance MD Primary Care Provider [phone] [phone] Encounter Details Date Type Department Care Team (Late st Contact Info) Description 11/13/2022 7:55 AM EDT Office Visit Radiation Oncology at [address] [phone] Toro Hayes MD [address] [place] [address] [place] [address] Malignant neoplasm [...] from the original note were not included. [facility] Medicine Radiation Oncology Radiation Oncology [...] check. PSA recheck at end of treatment ([facility] or [facility]) No orders of the defined types were placed in this encounter. [employer] [place] (NCI) Comprehensive Cancer Center [employer] Commission on Cancer (ACS [place]) Accredited Cancer Program [employer] (ACR) Accredited Radiation Oncology Program I have seen the patient in person, reviewed and edited the resident's above history and I agree with the details as written. The assessment and plan were formulated in discussion with me and I agree with them as documented. Toro Hayes MD, MS Outcomes Manager Radiation Oncology documented in this encounter Plan of Treatment Upcoming Encounters Date Type Department Care Team (Late st Contact Info) Description 12/17/2023 8:30 AM EDT Office Visit Hematology/Oncology at [address] [phone] Antonio Brownlee MD [facility] [place] [address] Fani Haskins, JAZMÍN [address] [place] [address] DR HEMATOLOGY AND ONCOLOGY [place], [place] [address] 12/17/2023 9:00 AM EDT Infusion Hematology Oncology at [address] [phone] 12/17/2023 10:00 AM EDT Clinical Support Hematology/Oncology at [address] [phone] [facility] DR [place] [address] 12/24/2023 10:40 AM EST Office Visit Cardiology at [address] [phone] Cory Sellers MD [facility] [place] [address] 12/30/2023 9:00 AM EST Office Visit Hematology/Oncology at [address] [phone] Antonio Brownlee MD [facility] [place] [address] Fani Haskins APRN [address] [place] [address] DR HEMATOLOGY AND ONCOLOGY [place], [place] [id number] 12/30/2023 9:30 AM EST Infusion Hematology Oncology at [address] [phone] 04/04/2024 9:45 AM EST TH Visit (TeleHealth) Radiation Oncology at [address] [phone] Adrienne Singh PA [facility] DR [place] [address] documented as of this encounter Visit Diagnoses Diagnosis Malignant neoplasm of prostate Malignant neoplasm of head of pancreas documented in this encounter Care Teams Salesperson [employer] Relationship Specialty Start Date End Date Jez Vance MD [address] [place] [address] PCP - General 01/07/10 documented as of this encounter
--- OUTSIDE RECORDS SUMMARY | 2023-12-17 01:48 | XMS_ITS | Encounter Summary ---
Author Organization [facility] Address [facility] [address] Care Team Providers Care Firestopper Installer Name Role Phone Jez Vance MD Primary Care Provider [phone] [phone] Reason for Visit * Reason Comments Injections Lupron * Treatment/Therapy Plan Authorization (Routine) - Closed Specialty Diagnoses / Procedures Referred By Deena yao Referred To Contact Radiation Oncology / Hematology and Oncology Diagnoses Malignant neoplasm of prostate Procedures TC LEUPROLIDE ACETATE 7.5MG, FOR DEPOST SUSPENSION (LUPRON DEPOT) [id number] LUPRON DEPOT Toro Hayes MD [address] [place] [address] DR [place] [address] Toro Hayes MD [address] [place] [address] DR [place] [address] Referral ID Status Reason Start Date Expiration Date Visits Re quested Visits Authorized [id number] Closed 08/06/2022 08/06/2023 1 99 Encounter Details Date Type Department Care Team (Late st Contact Info) Description 08/13/2022 8:00 AM EDT Infusion Hematology Oncology at [address] [phone] Malignant neoplasm of prostate Social History Tobacco [...] AM EDT Office Visit Hematology/Oncology at [address] [phone] Antonio Brownlee MD [facility] [address] Fani Haskins APRN [address] [place] [address] DR HEMATOLOGY AND ONCOLOGY [place], [place] [id number] 12/17/2023 9:00 AM EDT Infusion Hematology Oncology at [address] [phone] 12/17/2023 10:00 AM EDT Clinical Support Hematology/Oncology at [address] [phone] [facility] [place] [address] 12/24/2023 10:40 AM EST Office Visit Cardiology at [address] [phone] Cory Sellers MD [facility] [place] [address] 12/30/2023 9:00 AM EST Office Visit Hematology/Oncology at [address] [phone] 37 Antonio Brownlee MD [facility] [address] Fani Haskins APRN [address] [place] [address] DR HEMATOLOGY AND ONCOLOGY [place], [place] [address] 12/30/2023 9:30 AM EST Infusion Hematology Oncology at [address] [phone] 04/04/2024 9:45 AM EST TH Visit (TeleHealth) Radiation Oncology at [address] [phone] Adrienne Singh PA [facility] [place] [address] documented as of this encounter Visit Diagnoses [...] Gluteal documented in this encounter Care Teams Firestopper Installer Relationship Specialty Start Date End Date Jez Vance MD [address] [place] [address] PCP - General 01/07/10 documented as of this encounter
--- OUTSIDE RECORDS SUMMARY | 2023-12-17 01:49 | XMS_ITS | Encounter Summary ---
Author Organization [facility] Address One [facility] [place] [address] Care Team Providers Care Global Compensation Director Name Role Phone Jez Vance MD Primary Care Provider +1 -[phone] Encounter Details Date Type Department Care Team [...] AM EDT Office Visit Hematology/Oncology at [address] [phone] Antoino Brownlee MD [facility] [place] [address] Fani Haksins APRN [address] [place] [address] DR HEMATOLOGY AND ONCOLOGY [place], [place] [id number] 12/17/2023 9:00 AM EDT Infusion Hematology Oncology at [address] [phone] 12/17/2023 10:00 AM EDT Clinical Support Hematology/Oncology at [address] [phone] [facility] DR HEMATOLOGY [place] [address] 12/24/2023 10:40 AM EST Office Visit Cardiology at [address] [phone] Cory Sellers MD [facility] [place] [address] 12/30/2023 9:00 AM EST Office Visit Hematology/Oncology at [address] [phone] Antonio Brownlee MD [facility] [place] [address] Fani Haskins APRN [address] [place] [address] DR [place] [address] 12/30/2023 9:30 AM EST Infusion Hematology Oncology at [address] [phone] 04/04/2024 9:45 AM EST TH Visit (TeleHealth) Radiation Oncology at [address] [phone] Adrienne Singh PA [facility] DR HEMATOLOGY [place] [address] documented as of this encounter Visit Diagnoses Not on filedocumented in this encounter Care Teams Global Compensation Director Relationship Specialty Start Date End Date Jez Vance MD [address] [place] [address] PCP - General 01/07/10 documented as of this encounter
--- OUTSIDE RECORDS SUMMARY | 2023-12-17 01:49 | XMS_ITS | Encounter Summary ---
Author Organization [facility] Address One [facility] [place] [address] Care Team Providers Care Facialist Name Role Phone Jez Vance MD Primary Care Provider [phone] [phone] Encounter Details Date Type Department Care Team [...] AM EDT Office Visit Hematology/Oncology at [address] [phone] Antonio Brownlee MD [facility] [place] [address] Fani Haskins APRN [address] [place] [address] DR HEMATOLOGY AND ONCOLOGY [place], [place] [id number] 12/17/2023 9:00 AM EDT Infusion Hematology Oncology at [address] [phone] 12/17/2023 10:00 AM EDT Clinical Support Hematology/Oncology at [address] [phone] [facility] DR HEMATOLOGY [place] [address] 12/24/2023 10:40 AM EST Office Visit Cardiology at [address] [phone] Cory Sellers MD [facility] [address] 12/30/2023 9:00 AM EST Office Visit Hematology/Oncology at [address] [phone] Antonio Brownlee MD [facility] [place] [address] Fani Haskins APRN [address] [place] [address] DR [place] [address] 12/30/2023 9:30 AM EST Infusion Hematology Oncology at [address] [phone] 04/04/2024 9:45 AM EST TH Visit (TeleHealth) Radiation Oncology at [address] [phone] Adrienne Singh PA [facility] DR HEMATOLOGY [place] [address] documented as of this encounter Visit Diagnoses Not on filedocumented in this encounter Care Teams Facialist Relationship Specialty Start Date End Date Jez Vance MD [address] [place] [address] PCP - General 01/07/10 documented as of this encounter
--- OUTSIDE RECORDS SUMMARY | 2023-12-17 01:49 | XMS_ITS | Encounter Summary ---
[place] [address] Care Team Providers Care Professional Development Manager Name Role Phone Jez Vance MD Primary Care Provider [phone] Reason for Referral * Consultation (Routine) - Closed Specialty Diagnoses / Procedures Referred By Deena yao Referred To Contact Radiation Oncology Diagnoses Malignant neoplasm of prostate Procedures Simulation for Radiation Therapy Planning David Hayes MD [address] [place] [address] [place] [address] [facility] Onc Office [address] [place] [phone] Referral ID Status Reason Start Date Expiration Date V isits Requested Visits Authorized [id number] Closed Consult, Test & Treat 08/06/2022 08/06/2023 1 1 * Diagnostic Test (Routine) - Closed Specialty Diagnoses / Procedures Referred By Deena yao Referred To Contact Radiology Diagnoses Malignant neoplasm of prostate Procedures MRI Pelvis wo (Prostate) David Hayes MD [address] [place] [address] [place] [address] [facility] [place] [address] Referral ID Status Reason Start Date Expiration Date V isits Requested Visits Authorized [id number] Closed Specialty Service Requested 08/06/2022 02/06/2024 1 1 Reason for Visit * Consultation (Routine) - Closed Specialty Diagnoses / Procedures Referred By Contac t Referred To Contact Radiation Oncology Diagnoses Malignant neoplasm of prostate Procedures treatment options Jesus Cuellar MD [address] [place] [address] David Hayes MD [address] [place] [address] [place] [address] Referral ID Status Reason Start Date Expiration Date Visits Re quested Visits Authorized [id number] Closed 07/23/2022 07/23/2023 1 1 Encounter Details Date Type Department Care Team (Late st Contact Info) Description 08/06/2022 9:00 AM EDT Office Visit Radiation Oncology at [address] [phone] David Hayes MD [address] [place] [address] [place] [address] Malignant neoplasm of prostate Social [...] the original note were not included. Dear Mr. Zurita, Dr. Cuellar asked for me to see you to [...] ways radiation can be given here in [facility]. Either: 5.5 weeks of daily radiation [...] of completion radiation. 6. SIDE EFFECTS - Transfusion Aide: These can include be permanent damage of the radiated tissues, including the rectum/bowel, bladder, prostate and surrounding tissues. Potential serious injury is rare, but can include poor wound healing, bleeding, or destruction of healthy tissue that may require surgery to repair and may result in a colostomy (bag for defecation) or urostomy (bag for urination). There may be a slow, custodial decrease in your sexual function as well, [...] do not hesitate to call me at [phone] with any other questions or concerns you have. IfI am not here, one of our radiation oncology nurses can assist you or help you get in touch with me. A Radiation Oncology doctor is also concrete foreman after our normal hours and on weekends for urgent questions or concerns related to radiation treatments that can not wait until normal business hours. To reach the on-call doctor after-hours, just call and have the rod machine operator page the Radiation Oncologist concrete foreman. 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 However given increased convenience of treatment this regimens were discussed and offered. Brachytherapy was not discussed given his age, the added morbidity and - asyet - uncertain benefits in terms of disease-specific survival endpoints. In the short term, I reviewed the common irritative bowel and bladder side effects associated with all forms of radiotherapy. In the terminal makeup operator, I explained there is an approximately [...] briefly. He may be a candidate for [facility] - 009, a randomized study for high risk prostate cancer patients, which stratifies patients based on Decipher molecular score to either an escalated or de- escalated 2 year androgen deprivation therapy regimens. Given that hespends 1/2 of the year in [place] he has declined participation. On balance, Benny wishes to proceed with terminal makeup operator ADT and RT. Follow-up appointments will [...] anticipate 28 fractions to be delivered in [facility] next week for Lupron Time Attestation: I [...] Systems: Angela Barriers to treatment: none Referrals/Interventions: private household worker visit on per routine. RADIATION SPECIFIC TEACHING:Will provide the following information on [facility] Radiation Therapy and You Site specific teaching : Other: PLAN: Per Answers submitted by the patient for this visit: (Submitted on 08/06/2022) Distress: 5 documented in this encounter Plan of Treatment Upcoming Encounters Date Type Department Care Team (Late st Contact Info) Description 12/17/2023 8:30 AM EDT Office Visit Hematology/Oncology at [address] [phone] Antonio Brownlee MD [facility] [place] [address] Fani Haskins APRN [address] [place] [address] DR HEMATOLOGY AND ONCOLOGY [place], [place] [id number] 12/17/2023 9:00 AM EDT Infusion Hematology Oncology at [address] [phone] 12/17/2023 10:00 AM EDT Clinical Support Hematology/Oncology at [address] [phone] [facility] DR [place] [address] 12/24/2023 10:40 AM EST Office Visit Cardiology at [address] [phone] Cory Sellers MD [facility] [place] [address] 12/30/2023 9:00 AM EST Office Visit Hematology/Oncology at [address] [phone] Antonio Brownlee MD [facility] [place] [address] Fani Haskins APRN [address] [place] [address] DR HEMATOLOGY AND ONCOLOGY [place], [place] [phone] 12/30/2023 9:30 AM EST Infusion Hematology Oncology at [address] [phone] 04/04/2024 9:45 AM EST TH Visit (TeleHealth) Radiation Oncology at [address] [phone] Adrienne Singh PA [facility] [address] [place] [address] Scheduled Orders Name Type Priority Associated Diagnoses [...] housekeeper caregiver that requested your imaging first. ? Electronically signed by: Lalo Cristobal MD, [facility] ([phone]), at 09/22/2022 9:55 PM Narrative 09/22/2022 9:55 [...] patients who have questions please contactthe health housekeeper caregiver that requested your imaging first. David Hayes MD IM MRI ORDERABLES documented in this encounter Visit Diagnoses Diagnosis Malignant neoplasm of prostate Malignant neoplasm of prostate Malignant neoplasm of head of pancreas documented in this encounter Care Teams Professional Development Manager Relationship Specialty Start Date End Date Jez Vance MD [address] [place] [address] PCP - General 01/07/10 documented as of this encounter
--- OUTSIDE RECORDS SUMMARY | 2023-12-17 01:49 | XMS_ITS | Encounter Summary ---
Author Organization [facility] Address [facility] [place] [address] Care Team Providers Care Manager Of Drilling Name Role Phone Jez Vance MD Primary Care Provider [phone] Encounter Details Date Type Department Care Team (Late st Contact Info) Description 07/23/2022 Telephone Radiation Oncology at [address] [phone] Joanie Ma Social History Tobacco [...] AM EDT Office Visit Hematology/Oncology at [address] [phone] Antonio Brownlee MD [facility] [address] [address]ins [address] HEMATOLOGY AND ONCOLOGY [place], [place] [phone] 12/17/2023 9:00 AM EDT Infusion Hematology Oncology at [address] [phone] 12/17/2023 10:00 AM EDT Clinical Support Hematology/Oncology at [address] [phone] [facility] DR [place] [address] 12/24/2023 10:40 AM EST Office Visit Cardiology at [address] [phone] Cory Sellers MD [facility] [place] [address] 12/30/2023 9:00 AM EST Office Visit Hematology/Oncology at [address] [phone] Antonio Brownlee MD [facility] [place] [address] [address]ins [address] HEMATOLOGY AND ONCOLOGY [place], [place] [phone] 12/30/2023 9:30 AM EST Infusion Hematology Oncology at [address] [phone] 04/04/2024 9:45 AM EST TH Visit (TeleHealth) Radiation Oncology at [address] [phone] Adrienne Singh PA [facility] [place] [address] documented as of this encounter Visit Diagnoses Not on filedocumented in this encounter Care Teams Manager Of Drilling Relationship Specialty Start Date End Date Jez Vance MD [address] [place] [address] PCP - General 01/07/10 documented as of this encounter
[2023-12-17] MEDS: Normal Saline Flush 10 ML SYR IVP (07:49)
[2023-12-17 08:05] LABS: Abs Immature Grans 0.07 10^3/uL (0.0-0.06); Absolute Basophil Count 0.03 10^3/uL (0.0-0.2); Absolute Eosinophil Count 0.02 10^3/uL (0.0-0.7); Absolute Lymphocyte Count 0.44 10^3/uL (1.2-3.4); Absolute Monocyte Count 0.42 10^3/uL (0.1-0.8); Absolute Neutrophil Count 6.92 10^3/uL (1.2-6.7); Basophils % 0.4 %; Eosinophils % 0.3 %; HCT 32.9 % (40.0-50.0); HGB 11.5 g/dL (13.5-17.5); Immature Grans % 0.9 %; Lymphocytes % 5.6 %; MCH 33.4 pg (27.0-33.0); MCV 96 fL (80-95); MPV 11.2 fL (8.0-11.0); Monocytes % 5.3 %; Neutrophils % 87.5 %; Platelet Count 107 10^3/uL (130-400); RBC 3.44 10^6/uL (4.36-5.78); RDW 14.5 % (11.8-14.1); RDW-SD 49.8 fL
[2023-12-17 08:18] LABS: ALT 32 U/L (16-63); AST 20 U/L (15-37); Albumin 2.8 g/dL (3.4-5.0); Alkaline Phosphatase 107 U/L (46-116); Anion Gap 11.1 mmol/L (3-11); BUN 13 mg/dL (7-18); Bilirubin, Total 0.59 mg/dL (0.2-1.0); CO2 24.9 mmol/L (21.0-32.0); CREATININE 0.8 mg/dL (0.70-1.30); Calcium 8.5 mg/dL (8.5-10.1); Chloride 98 mmol/L (98-107); Estimated GFR 88.91 (mL/min/1.73m2); Glucose 161 mg/dL (74-106); Potassium 3.3 mmol/L (3.5-5.1); Sodium 134 mmol/L (136-145); Total Protein 6.1 g/dL (6.4-8.2)
[2023-12-17 23:43] LABS: CA 19-9 47 U/mL (<35)
[2023-12-30] MEDS: Normal Saline Flush 10 ML SYR IVP (09:19)
[2023-12-30 10:41] LABS: ALT 27 U/L (16-63); AST 16 U/L (15-37); Albumin 2.9 g/dL (3.4-5.0); Alkaline Phosphatase 109 U/L (46-116); Anion Gap 10.1 mmol/L (3-11); BUN 10 mg/dL (7-18); Bilirubin, Total 0.47 mg/dL (0.2-1.0); CO2 25.9 mmol/L (21.0-32.0); CREATININE 0.8 mg/dL (0.70-1.30); Calcium 8.4 mg/dL (8.5-10.1); Chloride 100 mmol/L (98-107); Estimated GFR 88.91 (mL/min/1.73m2); Glucose 124 mg/dL (74-106); Potassium 3.8 mmol/L (3.5-5.1); Sodium 136 mmol/L (136-145); Total Protein 6.1 g/dL (6.4-8.2)
[2023-12-30 11:03] LABS: Abs Immature Grans 0.01 10^3/uL (0.0-0.06); Absolute Basophil Count 0.02 10^3/uL (0.0-0.2); Absolute Eosinophil Count 0.02 10^3/uL (0.0-0.7); Absolute Lymphocyte Count 0.44 10^3/uL (1.2-3.4); Absolute Monocyte Count 0.47 10^3/uL (0.1-0.8); Absolute Neutrophil Count 2.34 10^3/uL (1.2-6.7); Basophils % 0.6 %; Eosinophils % 0.6 %; HCT 33.3 % (40.0-50.0); Immature Grans % 0.3 %; Lymphocytes % 13.3 %; MCH 34.5 pg (27.0-33.0); MCV 96 fL (80-95); MPV 10.5 fL (8.0-11.0); Monocytes % 14.2 %; Platelet Count 127 10^3/uL (130-400); RBC 3.48 10^6/uL (4.36-5.78); RDW 14.8 % (11.8-14.1); RDW-SD 51.2 fL
[2023-12-31 12:11] LABS: CA 19-9 41 U/mL (<35)
[2024-01-14 07:09] LABS: Abs Immature Grans 0.02 10^3/uL (0.0-0.06); Absolute Basophil Count 0.02 10^3/uL (0.0-0.2); Absolute Eosinophil Count 0.11 10^3/uL (0.0-0.7); Absolute Lymphocyte Count 0.63 10^3/uL (1.2-3.4); Absolute Monocyte Count 0.62 10^3/uL (0.1-0.8); Absolute Neutrophil Count 1.32 10^3/uL (1.2-6.7); Basophils % 0.7 %; HCT 33.3 % (40.0-50.0); HGB 11.6 g/dL (13.5-17.5); Immature Grans % 0.7 %; Lymphocytes % 23.2 %; MCH 34.4 pg (27.0-33.0); MCHC 34.8 % (32.0-36.0); MCV 99 fL (80-95); MPV 10.5 fL (8.0-11.0); Monocytes % 22.8 %; Neutrophils % 48.6 %; Platelet Count 132 10^3/uL (130-400); RBC 3.37 10^6/uL (4.36-5.78); RDW 14.9 % (11.8-14.1); WBC 2.72 10^3/uL (4.4-10.8)
[2024-01-14 07:25] LABS: ALT 33 U/L (16-63); AST 17 U/L (15-37); Albumin 2.8 g/dL (3.4-5.0); Alkaline Phosphatase 120 U/L (46-116); Anion Gap 8.8 mmol/L (3-11); BUN 9 mg/dL (7-18); CO2 26.2 mmol/L (21.0-32.0); CREATININE 0.7 mg/dL (0.70-1.30); Calcium 8.2 mg/dL (8.5-10.1); Chloride 101 mmol/L (98-107); Estimated GFR 92.57 (mL/min/1.73m2); Glucose 114 mg/dL (74-106); Potassium 3.6 mmol/L (3.5-5.1); Sodium 136 mmol/L (136-145)
[2024-01-14] MEDS: Normal Saline Flush 10 ML SYR IVP (08:38)
[2024-01-14 22:06] LABS: CA 19-9 21 U/mL (<35)
== END 2024-01-15 23:59 | disposition home or self-care (01) ==
LOC: INF 01:08
PROVIDERS: PCP Family Medicine; Visit Provider Internal Medicine Hematology & Oncology
DX: C25.0 Malignant neoplasm of head of pancreas (principal); Z45.2 Encounter for adjustment and management of vascular access device
CPT/HCPCS: 36591; 80053; 85025; 86301

== ENCOUNTER 2024-02-08 13:36 | Outpatient (CLI) | payer MEDICARE, OTHER, SELFPAY ==
--- NOTE | 2024-02-08 | DI.US_ITS ---
Exam(s) US LOWER EXTREMITY VENOUS LT EXAM: US LOWER EXTREMITY VENOUS LT CLINICAL HISTORY: LOCALIZED SWELLING LT FOOT, R22.42,LT FOOT/ANKLE SWELLING SETTING OF CANCER. TECHNIQUE: Lower extremity venous ultrasound performed using grayscale, color-flow, and spectral Do ppler analysis. COMPARISON: No exams were available for comparison FINDINGS: The common femoral, femoral and popliteal veins demonstrate normal compressibility, augmentation, and color Doppler. The posterior tibial and peroneal veins are patent. No saphenous vein thrombosis or other superficial venous thrombosis is seen. No hematoma or Ortiz's cyst is seen. Edema on the dorsum of foot. No focal drainable collection. IMPRESSION: Edema on the dorsum of the foot. No evidence of DVT. DATA REPOSITORY:
== END 2024-02-08 13:56 ==
LOC: DI 13:38
PROVIDERS: PCP Family Medicine; Visit Provider Nurse Practitioner Family
DX: R22.42 Localized swelling, mass and lump, left lower limb (principal)
CPT/HCPCS: 93971

== ENCOUNTER 2024-02-10 00:18 | Outpatient (RCR) | payer MEDICARE, OTHER, SELFPAY ==
[2024-01-27 07:50] LABS: Abs Immature Grans 0.01 10^3/uL (0.0-0.06); Absolute Basophil Count 0.02 10^3/uL (0.0-0.2); Absolute Eosinophil Count 0.15 10^3/uL (0.0-0.7); Absolute Lymphocyte Count 0.59 10^3/uL (1.2-3.4); Absolute Monocyte Count 0.66 10^3/uL (0.1-0.8); Absolute Neutrophil Count 2.44 10^3/uL (1.2-6.7); Basophils % 0.5 %; Eosinophils % 3.9 %; HCT 35.2 % (40.0-50.0); HGB 12.2 g/dL (13.5-17.5); Immature Grans % 0.3 %; Lymphocytes % 15.2 %; MCH 34.7 pg (27.0-33.0); MCHC 34.7 % (32.0-36.0); MCV 100 fL (80-95); MPV 11.3 fL (8.0-11.0); Monocytes % 17.1 %; Platelet Count 108 10^3/uL (130-400); RBC 3.52 10^6/uL (4.36-5.78); RDW 15.6 % (11.8-14.1); RDW-SD 56.4 fL; WBC 3.87 10^3/uL (4.4-10.8)
[2024-01-27 08:04] LABS: ALT 35 U/L (16-63); AST 23 U/L (15-37); Albumin 2.9 g/dL (3.4-5.0); Alkaline Phosphatase 132 U/L (46-116); Anion Gap 9.9 mmol/L (3-11); BUN 11 mg/dL (7-18); Bilirubin, Total 0.26 mg/dL (0.2-1.0); CO2 26.1 mmol/L (21.0-32.0); CREATININE 0.8 mg/dL (0.70-1.30); Calcium 8.5 mg/dL (8.5-10.1); Chloride 103 mmol/L (98-107); Estimated GFR 88.91 (mL/min/1.73m2); Glucose 136 mg/dL (74-106); Potassium 3.2 mmol/L (3.5-5.1); Sodium 139 mmol/L (136-145); Total Protein 6.1 g/dL (6.4-8.2)
[2024-01-28 09:48] LABS: CA 19-9 13 U/mL (<35)
[2024-02-10] MEDS: Normal Saline Flush 10 ML SYR IVP (08:03)
[2024-02-10 08:38] LABS: Abs Immature Grans 0.02 10^3/uL (0.0-0.06); Absolute Basophil Count 0.01 10^3/uL (0.0-0.2); Absolute Eosinophil Count 0.09 10^3/uL (0.0-0.7); Absolute Lymphocyte Count 0.54 10^3/uL (1.2-3.4); Absolute Neutrophil Count 1.91 10^3/uL (1.2-6.7); Basophils % 0.3 %; Eosinophils % 2.8 %; HCT 32.6 % (40.0-50.0); HGB 11.2 g/dL (13.5-17.5); Immature Grans % 0.6 %; MCH 34.6 pg (27.0-33.0); MCHC 34.4 % (32.0-36.0); MCV 101 fL (80-95); MPV 11.7 fL (8.0-11.0); Monocytes % 18.9 %; Neutrophils % 60.4 %; Platelet Count 117 10^3/uL (130-400); RBC 3.24 10^6/uL (4.36-5.78); RDW 15.5 % (11.8-14.1); RDW-SD 57.2 fL; WBC 3.17 10^3/uL (4.4-10.8)
[2024-02-10 08:58] LABS: ALT 38 U/L (16-63); AST 23 U/L (15-37); Albumin 2.2 g/dL (3.4-5.0); Alkaline Phosphatase 140 U/L (46-116); Anion Gap 8.1 mmol/L (3-11); BUN 8 mg/dL (7-18); Bilirubin, Total 0.39 mg/dL (0.2-1.0); CO2 26.9 mmol/L (21.0-32.0); CREATININE 0.7 mg/dL (0.70-1.30); Calcium 8.4 mg/dL (8.5-10.1); Chloride 103 mmol/L (98-107); Estimated GFR 92.57 (mL/min/1.73m2); Glucose 128 mg/dL (74-106); Potassium 3.3 mmol/L (3.5-5.1); Sodium 138 mmol/L (136-145); Total Protein 5.9 g/dL (6.4-8.2)
[2024-02-11 09:36] LABS: CA 19-9 8 U/mL (<35)
== END 2024-02-15 23:59 | disposition home or self-care (01) ==
LOC: INF 00:18
PROVIDERS: PCP Family Medicine; Visit Provider Internal Medicine Hematology & Oncology
DX: C25.0 Malignant neoplasm of head of pancreas (principal); Z45.2 Encounter for adjustment and management of vascular access device
CPT/HCPCS: 36591; 80053; 85025; 86301

== ENCOUNTER 2024-02-12 00:21 | Outpatient (RCR) | payer MEDICARE, OTHER, SELFPAY ==
[2024-01-29 11:56] VITALS: BP 100/65; PULSE 69; RESP 17; TEMP 37.2; O2SAT 98
[2024-01-29] MEDS: Normal Saline Flush 10 ML SYR IVP (12:10)
== END 2024-02-15 23:59 | disposition home or self-care (01) ==
LOC: INF 00:21
PROVIDERS: PCP Family Medicine; Visit Provider Internal Medicine Hematology & Oncology
DX: Z45.2 Encounter for adjustment and management of vascular access device (principal)
CPT/HCPCS: 96523

== ENCOUNTER 2024-03-04 00:30 | Outpatient (RCR) | payer MEDICARE, OTHER, SELFPAY ==
[2024-02-17] MEDS: Normal Saline Flush 10 ML SYR IVP (07:12)
[2024-02-17 07:51] LABS: Abs Immature Grans 0.03 10^3/uL (0.0-0.06); Absolute Basophil Count 0.02 10^3/uL (0.0-0.2); Absolute Eosinophil Count 0.07 10^3/uL (0.0-0.7); Absolute Lymphocyte Count 0.77 10^3/uL (1.2-3.4); Absolute Monocyte Count 0.58 10^3/uL (0.1-0.8); Absolute Neutrophil Count 1.58 10^3/uL (1.2-6.7); Basophils % 0.7 %; Eosinophils % 2.3 %; HCT 35.2 % (40.0-50.0); HGB 11.9 g/dL (13.5-17.5); Lymphocytes % 25.2 %; MCH 35.1 pg (27.0-33.0); MCHC 33.8 % (32.0-36.0); MCV 104 fL (80-95); MPV 10.6 fL (8.0-11.0); Neutrophils % 51.8 %; Platelet Count 177 10^3/uL (130-400); RBC 3.39 10^6/uL (4.36-5.78); RDW 15.9 % (11.8-14.1); RDW-SD 60.5 fL; WBC 3.05 10^3/uL (4.4-10.8)
[2024-02-17 08:14] LABS: ALT 47 U/L (16-63); AST 28 U/L (15-37); Albumin 2.7 g/dL (3.4-5.0); Alkaline Phosphatase 155 U/L (46-116); Anion Gap 4.4 mmol/L (3-11); BUN 10 mg/dL (7-18); Bilirubin, Total 0.16 mg/dL (0.2-1.0); CO2 28.6 mmol/L (21.0-32.0); CREATININE 0.6 mg/dL (0.70-1.30); Calcium 8.8 mg/dL (8.5-10.1); Chloride 105 mmol/L (98-107); Estimated GFR 96.98 (mL/min/1.73m2); Glucose 138 mg/dL (74-106); Sodium 138 mmol/L (136-145); Total Protein 6.1 g/dL (6.4-8.2)
[2024-02-18 09:33] LABS: CA 19-9 13 U/mL (<35)
[2024-03-02] MEDS: Normal Saline Flush 10 ML SYR IVP (09:05)
[2024-03-02 09:21] LABS: Abs Immature Grans 0.03 10^3/uL (0.0-0.06); Absolute Basophil Count 0.02 10^3/uL (0.0-0.2); Absolute Eosinophil Count 0.14 10^3/uL (0.0-0.7); Absolute Monocyte Count 0.79 10^3/uL (0.1-0.8); Absolute Neutrophil Count 3.93 10^3/uL (1.2-6.7); Basophils % 0.4 %; Eosinophils % 2.5 %; HCT 34.9 % (40.0-50.0); Immature Grans % 0.5 %; MCH 35.4 pg (27.0-33.0); MCHC 34.4 % (32.0-36.0); MCV 103 fL (80-95); Monocytes % 13.8 %; Neutrophils % 68.8 %; Platelet Count 120 10^3/uL (130-400); RBC 3.39 10^6/uL (4.36-5.78); RDW 14.8 % (11.8-14.1); RDW-SD 56.6 fL; WBC 5.71 10^3/uL (4.4-10.8)
[2024-03-02 09:33] LABS: ALT 43 U/L (16-63); AST 24 U/L (15-37); Albumin 2.7 g/dL (3.4-5.0); Alkaline Phosphatase 174 U/L (46-116); Anion Gap 7.6 mmol/L (3-11); BUN 12 mg/dL (7-18); Bilirubin, Total 0.33 mg/dL (0.2-1.0); CO2 27.4 mmol/L (21.0-32.0); CREATININE 0.7 mg/dL (0.70-1.30); Calcium 8.5 mg/dL (8.5-10.1); Chloride 104 mmol/L (98-107); Estimated GFR 92.57 (mL/min/1.73m2); Glucose 137 mg/dL (74-106); Sodium 139 mmol/L (136-145); Total Protein 6.6 g/dL (6.4-8.2)
[2024-03-03 08:24] LABS: CA 19-9 16 U/mL (<35)
[2024-03-04] MEDS: Normal Saline Flush 10 ML SYR IVP (13:26)
== END 2024-03-17 23:59 | disposition home or self-care (01) ==
LOC: INF 00:30
PROVIDERS: PCP Family Medicine; Visit Provider Internal Medicine Hematology & Oncology
DX: C25.0 Malignant neoplasm of head of pancreas (principal)
CPT/HCPCS: 36591; 80053; 96523; 85025; 86301

== ENCOUNTER 2024-06-13 13:30 | Outpatient (RCR) | payer MEDICARE, OTHER, SELFPAY ==
[2024-06-08 08:13] LABS: Abs Immature Grans 0.03 10^3/uL (0.0-0.06); Absolute Basophil Count 0.04 10^3/uL (0.0-0.2); Absolute Eosinophil Count 0.22 10^3/uL (0.0-0.7); Absolute Lymphocyte Count 0.52 10^3/uL (1.2-3.4); Absolute Neutrophil Count 8.67 10^3/uL (1.2-6.7); Basophils % 0.4 %; Eosinophils % 2.2 %; HCT 35.5 % (40.0-50.0); HGB 11.7 g/dL (13.5-17.5); Immature Grans % 0.3 %; Lymphocytes % 5.2 %; MCH 31.5 pg (27.0-33.0); MCV 95 fL (80-95); MPV 10.6 fL (8.0-11.0); Neutrophils % 85.9 %; Platelet Count 197 10^3/uL (130-400); RBC 3.72 10^6/uL (4.36-5.78); RDW 12.9 % (11.8-14.1); RDW-SD 45.7 fL; WBC 10.08 10^3/uL (4.4-10.8)
[2024-06-08 08:29] LABS: ALT 37 U/L (16-63); AST 19 U/L (15-37); Albumin 2.7 g/dL (3.4-5.0); Alkaline Phosphatase 172 U/L (46-116); Anion Gap 10.7 mmol/L (3-11); BUN 19 mg/dL (7-18); Bilirubin, Total 0.3 mg/dL (0.2-1.0); CO2 27.3 mmol/L (21.0-32.0); CREATININE 0.8 mg/dL (0.70-1.30); Calcium 8.5 mg/dL (8.5-10.1); Chloride 103 mmol/L (98-107); Estimated GFR 88.91 (mL/min/1.73m2); Glucose 115 mg/dL (74-106); Sodium 141 mmol/L (136-145); Total Protein 6.2 g/dL (6.4-8.2)
[2024-06-08] MEDS: Normal Saline Flush 10 ML SYR IVP (08:30)
[2024-06-09 10:26] LABS: CA 19-9 47 U/mL (<35)
[2024-06-10] MEDS: Normal Saline Flush 10 ML SYR IVP (12:46)
[2024-06-13] MEDS: Normal Saline Flush 10 ML SYR IVP (13:34)
[2024-06-13 13:47] LABS: Abs Immature Grans 0.03 10^3/uL (0.0-0.06); Absolute Basophil Count 0.03 10^3/uL (0.0-0.2); Absolute Eosinophil Count 0.11 10^3/uL (0.0-0.7); Absolute Monocyte Count 0.14 10^3/uL (0.1-0.8); Basophils % 0.7 %; Eosinophils % 2.7 %; HCT 35.5 % (40.0-50.0); HGB 11.8 g/dL (13.5-17.5); Immature Grans % 0.7 %; MCH 31.4 pg (27.0-33.0); MCHC 33.2 % (32.0-36.0); MCV 94 fL (80-95); MPV 10.7 fL (8.0-11.0); Monocytes % 3.4 %; Neutrophils % 75.5 %; Platelet Count 197 10^3/uL (130-400); RBC 3.76 10^6/uL (4.36-5.78); RDW-SD 45.1 fL; WBC 4.11 10^3/uL (4.4-10.8)
[2024-06-13 14:01] LABS: ALT 38 U/L (16-63); AST 21 U/L (15-37); Albumin 2.7 g/dL (3.4-5.0); Alkaline Phosphatase 164 U/L (46-116); Anion Gap 8.8 mmol/L (3-11); BUN 11 mg/dL (7-18); Bilirubin, Total 0.3 mg/dL (0.2-1.0); CO2 27.2 mmol/L (21.0-32.0); CREATININE 0.6 mg/dL (0.70-1.30); Calcium 8.3 mg/dL (8.5-10.1); Chloride 100 mmol/L (98-107); Estimated GFR 96.98 (mL/min/1.73m2); Glucose 138 mg/dL (74-106); Sodium 136 mmol/L (136-145)
== END 2024-06-14 23:59 | disposition home or self-care (01) ==
LOC: INF 13:30
PROVIDERS: PCP Family Medicine; Visit Provider Internal Medicine Hematology & Oncology
DX: C25.0 Malignant neoplasm of head of pancreas (principal); Z45.2 Encounter for adjustment and management of vascular access device
CPT/HCPCS: 36591; 80053; 96523; 85025; 86301

== ENCOUNTER 2024-06-29 01:32 | Outpatient (RCR) | payer MEDICARE, OTHER, SELFPAY ==
[2024-06-29] MEDS: Normal Saline Flush 10 ML SYR IVP (11:19)
[2024-06-29 11:30] LABS: Abs Immature Grans 0.05 10^3/uL (0.0-0.06); Absolute Basophil Count 0.05 10^3/uL (0.0-0.2); Absolute Eosinophil Count 0.06 10^3/uL (0.0-0.7); Absolute Lymphocyte Count 0.83 10^3/uL (1.2-3.4); Absolute Monocyte Count 0.51 10^3/uL (0.1-0.8); Absolute Neutrophil Count 3.53 10^3/uL (1.2-6.7); Eosinophils % 1.2 %; HCT 32.7 % (40.0-50.0); HGB 10.8 g/dL (13.5-17.5); Lymphocytes % 16.5 %; MCH 30.6 pg (27.0-33.0); MCV 93 fL (80-95); MPV 10.2 fL (8.0-11.0); Monocytes % 10.1 %; Neutrophils % 70.2 %; Platelet Count 236 10^3/uL (130-400); RBC 3.53 10^6/uL (4.36-5.78); RDW 14.9 % (11.8-14.1); RDW-SD 49.1 fL; WBC 5.03 10^3/uL (4.4-10.8)
[2024-06-29 11:48] LABS: ALT 52 U/L (16-63); AST 32 U/L (15-37); Albumin 2.3 g/dL (3.4-5.0); Alkaline Phosphatase 168 U/L (46-116); BUN 10 mg/dL (7-18); Bilirubin, Total 0.2 mg/dL (0.2-1.0); CREATININE 0.6 mg/dL (0.70-1.30); Calcium 8.3 mg/dL (8.5-10.1); Chloride 102 mmol/L (98-107); Estimated GFR 96.38 (mL/min/1.73m2); Glucose 131 mg/dL (74-106); Potassium 4.2 mmol/L (3.5-5.1); Sodium 134 mmol/L (136-145); Total Protein 5.6 g/dL (6.4-8.2)
[2024-06-30 10:40] LABS: CA 19-9 33 U/mL (<35)
== END 2024-07-15 23:59 | disposition home or self-care (01) ==
LOC: INF 01:32
PROVIDERS: PCP Family Medicine; Visit Provider Internal Medicine Hematology & Oncology
DX: C25.0 Malignant neoplasm of head of pancreas (principal); Z45.2 Encounter for adjustment and management of vascular access device
CPT/HCPCS: 36591; 80053; 85025; 86301

== ENCOUNTER 2024-08-15 03:30 | Outpatient (RCR) | payer MEDICARE, OTHER, SELFPAY ==
[2024-08-15] MEDS: Normal Saline Flush 10 ML SYR IVP (12:04)
[2024-08-15 12:15] LABS: Abs Immature Grans 0.01 10^3/uL (0.0-0.06); HCT 38.0 % (40.0-50.0); HGB 12.4 g/dL (13.5-17.5); Immature Grans % 0.2 %; MCH 30.6 pg (27.0-33.0); MCHC 32.6 % (32.0-36.0); MCV 94 fL (80-95); MPV 11.0 fL (8.0-11.0); Platelet Count 187 10^3/uL (130-400); RBC 4.05 10^6/uL (4.36-5.78); RDW 16.3 % (11.8-14.1); RDW-SD 56.3 fL; WBC 6.02 10^3/uL (4.4-10.8)
[2024-08-15 12:30] LABS: ALT 69 U/L (16-63); AST 36 U/L (15-37); Albumin 3.0 g/dL (3.4-5.0); Alkaline Phosphatase 199 U/L (46-116); Anion Gap 9.3 mmol/L (3-11); BUN 10 mg/dL (7-18); Bilirubin, Total 0.3 mg/dL (0.2-1.0); CO2 26.7 mmol/L (21.0-32.0); Calcium 8.4 mg/dL (8.5-10.1); Chloride 104 mmol/L (98-107); Estimated GFR 108.93 (mL/min/1.73m2); Glucose 114 mg/dL (74-106); Potassium 3.7 mmol/L (3.5-5.1); Sodium 140 mmol/L (136-145); Total Protein 6.3 g/dL (6.4-8.2)
[2024-08-16 11:44] LABS: CA 19-9 1171 U/mL (<35)
== END 2024-09-14 23:59 | disposition home or self-care (01) ==
LOC: INF 03:30
PROVIDERS: PCP Family Medicine; Visit Provider Internal Medicine Hematology & Oncology
DX: C25.0 Malignant neoplasm of head of pancreas (principal); Z45.2 Encounter for adjustment and management of vascular access device
CPT/HCPCS: 36591; 80053; 85025; 86301